=== PATIENT | male | born 1940 | race Caucasian/White ===

== ENCOUNTER 2018-04-03 20:03 | Emergency (ER) | payer MEDICARE, OTHER, MEDICAID ==
[~2018-04-03] VITALS: Ht 190.5 cm; Wt 145.1 kg
[~2018-04-03 20:03] MED LIST: AC325T PO; AMLO1TAB3; AMLO5TAB2 PO; ASP325T; ASP81TEC PO; ATR20T PO; ATRV10T PO; BENA5TAB PO; BETH50TA9 PO; BNZ20T; BNZ20T PO; BROM3DRO OU; CARB1TAB; CHOL200025 PO; CLIN300C3 PO; CLINDAMYCIN PO; ENAL20TA PO; GLIM4TAB; HCT25T PO; HYDR-3454 PO; HYDR12.570; INSASP10V SQ; INSU100C4 SQ; METF-380; METF-380 PO; MTF500T PO; MTP50T PO; MULT-608 PO; PIOG15TA24 PO; PREG75CA; TERA5CAP10 PO; TMSL.4C PO; TRM50T PO; TRZS2T PO; ZLP10T PO; ZOLP10TA5 PO; [UNRECOGNIZED DRUG - OTHER] PO
[2018-04-03] MEDS ORDERED: TETANUS,DIPTH,PERTUSS P/F (BOOSTRIX) 0.5 ML VIAL IM ONE (20:15)
[2018-04-03] MEDS ORDERED: LIDOCAINE 1% INJ 20 ML 20 ML VIAL INJ ONE (20:15)
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
--- NOTE | 2018-04-03 21:06 | Diagnostic Imaging Report ---
INDICATION: Laceration to the plantar surface of the second toe of the right foot. EXAMINATION: Three views of the right toes were obtained. FINDINGS: No fracture, dislocation or other acute bony abnormality. There are mild degenerative changes of the interphalangeal joints. No soft tissue mass or foreign body is seen. IMPRESSION: No acute abnormality is seen. Dictated by: Dictated on workstation # [id number]
[2018-04-03] MEDS ORDERED: CEPH-507 PO (21:13)
[2018-04-03 21:20] VITALS: BP 149/73
== END 2018-04-03 21:20 | disposition home or self-care (01) ==
LOC: EDUNIT# 20:03 → ER 20:05
DX: S91.114A Laceration without foreign body of right lesser toe(s) without damage to nail, initial encounter (principal); E11.42 Type 2 diabetes mellitus with diabetic polyneuropathy; Z79.82 Long term (current) use of aspirin; Z79.4 Long term (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; Z82.49 Family history of ischemic heart disease and other diseases of the circulatory system; Z80.42 Family history of malignant neoplasm of prostate; Z23 Encounter for immunization; X58.XXXA Exposure to other specified factors, initial encounter
CPT/HCPCS: 73660; 90471; 90715

== ENCOUNTER → 2018-04-15 | Outpatient (CLI) | payer MEDICARE, OTHER, MEDICAID ==
[~2018-04-15] MED LIST changes: +CEPH-507 PO
== END ==
LOC: WOUNDCARE 08:03
PROVIDERS: ATTEND Nurse Practitioner
DX: E11.621 Type 2 diabetes mellitus with foot ulcer (principal); L97.512 Non-pressure chronic ulcer of other part of right foot with fat layer exposed
CPT/HCPCS: 11042

== ENCOUNTER → 2018-04-20 | Outpatient (CLI) | payer MEDICARE, OTHER, MEDICAID ==
--- NOTE | 2018-04-20 17:33 | Diagnostic Imaging Report ---
PROCEDURE: US Bilateral lower extremity arterial. TECHNIQUE: Multiple real-time grayscale images are obtained through both lower extremity arterial systems with color Doppler imaging and color Doppler spectral analysis. INDICATION: Lower extremity cyanosis. FINDINGS: There are biphasic arterial waveforms seen throughout the lower extremity arteries bilaterally. There is no evidence of focal velocity elevation to indicate hemodynamically significant stenosis within the thighs or calf regions. There is however focal increased flow velocity at the level of the left dorsalis pedis artery which may indicate stenosis at the ankle. There is no evidence of occlusion. IMPRESSION: Biphasic arterial waveforms throughout the lower extremities with possible focal stenosis at the left ankle, resulting in elevated velocities in the left dorsalis pedis artery. There is no evidence of occlusion or filling defect. Dictated by: Dictated on workstation # [id number]
== END ==
LOC: RAD 15:04
PROVIDERS: ATTEND Nurse Practitioner Community Health
DX: R23.0 Cyanosis (principal)
CPT/HCPCS: 93925

== ENCOUNTER → 2018-04-20 | Outpatient (CLI) | payer MEDICARE, OTHER, MEDICAID | LOC: WOUNDCARE 12:27 | PROVIDERS: ATTEND Surgery | DX: E11.621 Type 2 diabetes mellitus with foot ulcer (principal); L97.522 Non-pressure chronic ulcer of other part of left foot with fat layer exposed; E11.42 Type 2 diabetes mellitus with diabetic polyneuropathy; L97.512 Non-pressure chronic ulcer of other part of right foot with fat layer exposed | CPT/HCPCS: 11042; 87070; 87075; 87077; 87186; 87205 ==

== ENCOUNTER → 2018-04-20 | Outpatient (CLI) | payer MEDICARE, OTHER, MEDICAID ==
[2018-04-20 14:30] LABS: BASOPHILS % (AUTO) 1 % (0-10); EOSINOPHILS # (AUTO) 0.3 10^3/uL (0.0-0.3); EOSINOPHILS % (AUTO) 5 % (0-10); HEMATOCRIT 43 % (40-54); HEMOGLOBIN 14.1 G/DL (13.3-17.7); LYMPHOCYTES % (AUTO) 16 % (12-44); MEAN CORPUSCULAR HEMOGLOBIN 29 PG (25-34); MEAN CORPUSCULAR HGB CONC 33 G/DL (32-36); MEAN CORPUSCULAR VOLUME 90 FL (80-99); MEAN PLATELET VOLUME 10.5 FL (7.4-10.4); MONOCYTES # (AUTO) 0.8 X 10^3 (0.0-1.0); MONOCYTES % (AUTO) 13 % (0-12); NEUTROPHILS # (AUTO) 3.9 X 10^3 (1.8-7.8); NEUTROPHILS % (AUTO) 65 % (42-75); PLATELET COUNT 276 10^3/uL (130-400); RED BLOOD COUNT 4.81 10^6/uL (4.35-5.85); RED CELL DISTRIBUTION WIDTH 13.6 % (10.0-14.5)
--- NOTE | 2018-04-20 15:55 | Diagnostic Imaging Report ---
INDICATION: Chronic ulcer of the left foot. TIME OF EXAM: 2:29 PM FINDINGS: Three views of the left foot were obtained. There is soft tissue swelling along the dorsum of the foot. Patient does have pes planus. No definite bony destructive or osseous erosive changes are seen. No definite soft tissue gas is identified. IMPRESSION: Soft tissue swelling. No definite bony destructive changes are identified. Dictated by: Dictated on workstation # [id number]
== END ==
LOC: LAB 13:51
PROVIDERS: ATTEND Surgery
DX: E11.621 Type 2 diabetes mellitus with foot ulcer (principal); L97.522 Non-pressure chronic ulcer of other part of left foot with fat layer exposed
CPT/HCPCS: 36415; 73630; 83036; 85025

== ENCOUNTER → 2018-04-29 | Outpatient (CLI) | payer MEDICARE, OTHER, MEDICAID | LOC: WOUNDCARE 08:10 | PROVIDERS: ATTEND Surgery | DX: E11.621 Type 2 diabetes mellitus with foot ulcer (principal); L97.512 Non-pressure chronic ulcer of other part of right foot with fat layer exposed; E11.42 Type 2 diabetes mellitus with diabetic polyneuropathy | CPT/HCPCS: 97597 ==

== ENCOUNTER 2019-01-03 11:11 | Inpatient (IN) | payer MEDICARE, OTHER ==
[~2019-01-03] VITALS: Ht 188 cm; Wt 147.0 kg
[2019-01-03] VITALS (14 sets, daily range): BP systolic 128–146; BP diastolic 61–80
--- NOTE | 2019-01-03 11:37 | ED Integumentary General ---
General Stated Complaint: WOUNDS Source: patient, [facility] records, caregiver Exam Limitations: no limitations History of Present Illness Date Seen by Provider: Jan 03, 2019 Time Seen by Provider: 11:20 Initial Comments The patient presents [facility] the [facility] with chief complaint that he has a wound on his right pannus and right butt cheek that is concerning his nursing staff at the [facility]. He's had no fever chills nausea or significant pain. He does not take any pain medicines. He does have a history of limited mobility secondary to diabetes and obesity. He uses a electric wheelchair. The wound is not draining anything and has not opened up. He was seen Wednesday, 4 days ago by primary care and he has scheduled appointment with Dr. Tinoco, wound care on Wednesday, 3 days from now. Nursing staff noticed yesterday was getting worse so they obtained a culture swab of the skin overlying erythema. Primary care started him on clindamycin and ciprofloxacin yesterday. The staff accompanies him is not sure if he is actually started the antibiotics yet. DON called Primary care yesterday and asked to send him to the ER but they declined but today they brought him to the ER. Patient has a history of yeast infection under the skin of his pannus been treated by antifungal's. His blood sugar yesterday was 89 in the morning fasting. Allergies and Home Medications Allergies Coded Allergies: No Known Drug Allergies (Unverified , 01/03/19) Home Medications Acetaminophen 325 Mg Tablet, 650 MG PO Q4H PRN for PAIN-MILD, (Reported) TAKES 2 (325MG) TABLETS Acetaminophen 325 Mg Tablet, 650 MG PO DAILY, (Reported) Amlodipine Besylate 5 Mg Tablet, 5 MG PO DAILY, (Reported) HOLD IF SBP<90, PULSE <60 Aspirin 81 Mg Tablet.dr, 81 MG PO DAILY, (Reported) Atorvastatin Calcium 10 Mg Tablet, 10 MG PO 1500, (Reported) Benzocaine/Menthol 1 Each Lozenge, 1 ANNIE MM UD PRN for COUGH, (Reported) Ciprofloxacin HCl 500 Mg Tablet, 500 MG PO BID, (Reported) 10 DAY SUPPLY START DATE 01-02-19 END DATE 01-12-19 Clindamycin HCl 300 Mg Capsule, 300 MG PO QID, (Reported) START DATE 01-02-19 END DATE 01-12-19 D-Methorphan/Acetamin/Doxylamn 236 Ml Liquid, 30 ML PO DAILY PRN for COUGH, (Reported) Dextran 70/Hypromellose 15 Ml Drops, 1 DROP OU BID, (Reported) Docusate Sodium 100 Mg Capsule, 100 MG PO BID, (Reported) Enalapril Maleate 10 Mg Tablet, 10 MG PO BID, (Reported) HOLD IF SBP <90 PULSE <60 Finasteride 5 Mg Tablet, 5 MG PO DAILY, (Reported) Furosemide 20 Mg Tablet, 20 MG PO DAILY, (Reported) Gabapentin 300 Mg Capsule, 300 MG PO BID, (Reported) Insulin Detemir 100 Unit/1 Ml Insuln.pen, 33 UNITS SC BID, (Reported) Insulin Lispro 100 Unit/1 Ml Vial, 22 UNITS SC TID, (Reported) Lactobacillus Acidophilus 1 Each Capsule, 1 CAP PO BID, (Reported) Loperamide HCl 2 Mg Capsule, PO UD PRN for LOOSE STOOLS, (Reported) TAKE 2 CAPSULES AFTER FIRST LOOSE STOOL THEN TAKE 1 CAPSULE AFTER EACH SUBSEUENT LOOSE STOOL. MAX 4 CAPS IN 24 HOURS Magnesium Hydroxide 400 Mg/5 Ml Oral.susp, 30 ML PO DAILY PRN for CONSTIPATION- 7TH LINE, (Reported) Menthol 118 Ml Gel..ml., TP Q6H PRN for SHOULDER PAIN, (Reported) Metformin HCl 1,000 Mg Tablet, 1,000 MG PO BID, (Reported) Metoprolol Tartrate 50 Mg Tablet, 50 MG PO BID, (Reported) Mirabegron 50 Mg Tab.er.24h, 50 MG PO DAILY, (Reported) Phenyleph/Pramoxin/Glycr/W.pet 51 Gm Cream..g., RC Q6H PRN for HEMORRHOIDS, (Reported) Polyethylene Glycol 3350 17 Gm Powd.pack, 17 GM PO Q12H PRN for CONSTIPATION-2ND LINE, (Reported) Propylene Glycol/Peg 400 15 Ml Drops, 1 DROP OU Q4H PRN for DRY EYES, (Reported) Tamsulosin HCl 0.4 Mg Cap, 0.4 MG PO 1730, (Reported) Zinc Oxide 28 Gm Oint, TP Q8H PRN for RASH/REDNESS IN ABDOMINAL FOLD, (Reported) Patient Home Medication List Home Medication List Reviewed: Yes Review of Systems Review of Systems Constitutional: No chills, No fever EENTM: No ear pain, No eye pain Respiratory: No cough, No short of breath Cardiovascular: No chest pain, No edema Gastrointestinal: No abdominal pain, No constipation, No nausea Genitourinary: No discharge, No dysuria Musculoskeletal: No back pain, No joint pain Past Cpltbav-Dnekbl-Cubbrb Hx Patient Social History Alcohol Use: Denies Use Recreational Drug Use: No Smoking Status: Never a Smoker Recent Hopitalizations: Yes Immunizations Up To Date Tetanus Booster (TDap): More than 5yrs Date of Pneumonia Vaccine: Mar 21, 2011 Date of Influenza Vaccine: Mar 31, 2018 Past Medical History Surgeries: Yes Respiratory: Yes Cardiac: Yes Neurological: No Reproductive Disorders: No Genitourinary: No Gastrointestinal: No Musculoskeletal: Yes Arthritis Endocrine: Yes Diabetes, Non-Insulin dep HEENT: Yes Cataract Loss of Vision: Bilateral Hearing Impairment: Hard of Hearing, Bilateral Hearing Aide Cancer: No Psychosocial: No Integumentary: Yes (COCCYX WITH LARGE SCAR FROM DECUB) Blood Disorders: No Family Medical History Cardiovascular disease 19 MOTHER (CHF) Diabetes mellitus 19 MOTHER Prostate cancer 19 FATHER Heart Disease, Cancer, Diabetes, Hypertension Physical Exam Vital Signs Vital Signs - First Documented Capillary Refill : General Appearance: WD/WN, no apparent distress HEENT: PERRL/EOMI, normal ENT inspection Neck: full range of motion, supple, normal inspection Cardiovascular: normal peripheral pulses, regular rate, rhythm Respiratory: normal breath sounds, no respiratory distress, no accessory muscle use Gastrointestinal: non tender, soft Extremities: normal capillary refill, other (chronic foot drop bilaterally) Neurologic/Psychiatric: no motor/sensory deficits, alert, normal mood/affect, oriented x 3 Skin: other (erythematous, cellulitic appearance to the right lower quadrant pannus. Central 5-6 cm diameter area of dark purple, nonvital tissue and erythema. Macerated, moist but no pointing, induration or area of fluctuance. Malodorous. Joan under the pannus. There is a 2.5 cm diameter erythematous patch with a central papule but no significant induration or fluctuance under it on the right buttock) Progress/Results/Core Measures Results/Orders Lab Results Laboratory Tests Test 01/03/19 11:31 Range/Units White Blood Count 10.3 4.3-11.0 10^3/uL Red Blood Count 4.71 4.35-5.85 10^6/uL Hemoglobin 13.7 13.3-17.7 G/DL Hematocrit 42 40-54 % Mean Corpuscular Volume 90 80-99 FL Mean Corpuscular Hemoglobin 29 25-34 PG Mean Corpuscular Hemoglobin Concent 32 32-36 G/DL Red Cell Distribution Width 13.8 10.0-14.5 % Platelet Count 358 130-400 10^3/uL Mean Platelet Volume 9.9 7.4-10.4 FL Neutrophils (%) (Auto) 74 42-75 % Lymphocytes (%) (Auto) 7 L 12-44 % Monocytes (%) (Auto) 16 H 0-12 % Eosinophils (%) (Auto) 2 0-10 % Basophils (%) (Auto) 0 0-10 % Neutrophils # (Auto) 7.6 1.8-7.8 X 10^3 Lymphocytes # (Auto) 0.7 L 1.0-4.0 X 10^3 Monocytes # (Auto) 1.7 H 0.0-1.0 X 10^3 Eosinophils # (Auto) 0.3 0.0-0.3 10^3/uL Basophils # (Auto) 0.0 0.0-0.1 10^3/uL Neutrophils % (Manual) 73 % Lymphocytes % (Manual) 6 % Monocytes % (Manual) 19 % Eosinophils % (Manual) 0 % Basophils % (Manual) 0 % Band Neutrophils 2 % Blood Morphology Comment NORMAL Prothrombin Time 13.5 12.2-14.7 SEC INR Comment 1.0 0.8-1.4 Activated Partial Thromboplast Time 31 24-35 SEC Sodium Level 137 135-145 MMOL/L Potassium Level 4.0 3.6-5.0 MMOL/L Chloride Level 100 98-107 MMOL/L Carbon Dioxide Level 26 21-32 MMOL/L Anion Gap 11 5-14 MMOL/L Blood Urea Nitrogen 22 H 7-18 MG/DL Creatinine 0.89 0.60-1.30 MG/DL Estimat Glomerular Filtration Rate > 60 BUN/Creatinine Ratio 25 Glucose Level 134 H 70-105 MG/DL Lactic Acid Level 3.04 *H 0.50-2.00 MMOL/L Calcium Level 10.0 8.5-10.1 MG/DL Corrected Calcium 10.2 H 8.5-10.1 MG/DL Total Bilirubin 0.7 0.1-1.0 MG/DL Aspartate Amino Transf (AST/SGOT) 23 5-34 U/L Alanine Aminotransferase (ALT/SGPT) 29 0-55 U/L Alkaline Phosphatase 84 40-136 U/L Total Protein 6.7 6.4-8.2 GM/DL Albumin 3.8 3.2-4.5 GM/DL My Orders Orders - OSIRIS DANIELSON Cbc With Automated Diff (01/03/19 11:27) Comprehensive Metabolic Panel (01/03/19 11:27) Blood Culture (01/03/19 11:27) Protime With Inr (01/03/19 11:27) Partial Thromboplastin Time (01/03/19 11:27) Ed Iv/Invasive Line Start (01/03/19 11:27) Vital Signs Adult Sepsis Patie Q15M (01/03/19 11:27) O2 (01/03/19 11:27) Remove Rings In Anticipation O (01/03/19 11:) Lactic Acid Analyzer (01/03/19 11:27) Manual Differential (01/03/19 11:31) Piperacillin/Tazobactam (Bulk) (Zosyn In (01/03/19 12:00) Vancomycin Injection (Vancomycin Injecti (01/03/19 12:00) Ed Iv/Invasive Line Start (01/03/19 12:03) Ns Iv 1000 Ml (Sodium Chloride 0.9%) (01/03/19 12:03) Vancomycin Injection (Vancomycin Injecti (01/03/19 12:03) Piperacillin Sodium/Tazobactam (Zosyn Vi (01/03/19 12:03) Ns (Ivpb) (Sodium Chloride 0.9%) (01/03/19 12:04) Ns (Ivpb) (Sodium Chloride 0.9% Ivpb Bag (01/03/19 12:04) Vital Signs/I&O 01/03/19 01/03/19 01/03/19 11:35 11:35 11:35 Temp 98.2 98.2 Pulse 80 80 Resp 18 18 B/P (MAP) 141/75 (97) 141/75 (97) Pulse Ox 98 98 98 O2 Delivery Room Air Room Air Room Air Progress Progress Note : Time: 11:37 Progress Note Cellulitic appearing area with mild superficial skin breakdown from maceration but no evidence of abscess to be drained. Needs debrided to be further characterized by wound care. Patient's vital signs are aseptic. We will check labs. The MRSA seen on the culture of his skin maru is not clinically significant. The patient was started yesterday on clindamycin and ciprofloxacin which would probably be adequate however it has not been long enough for these medications to have a chance to make a difference. We'll check his blood sugar today and encouraged him to keep it below 200. Departure Communication (Admissions) Time/Spoke to Admitting Phy: 12:18 Alaina: Discussed case lab and antibiotics fluids and consulted general surgery. Time/Spoke to Consulting Phy: 12:[address] Childs and he agrees to consult on the patient. Impression Primary Impression: Cellulitis Qualified Codes: L03.311 - Cellulitis of abdominal wall Additional Impression: Sepsis Qualified Codes: A41.9 - Sepsis, unspecified organism Disposition: ADMITTED INPATIENT Condition: Stable Admissions Decision to Admit Reason: Admit from ER (General) Decision to Admit/Date: Jan 03, 2019 Time/Decision to Admit Time: 12:20 Departure-Patient Inst. Referrals: [facility] (PCP) Primary Care Physician CONTRERAS QUINN (Family) Primary Care Physician OSIRIS DANIELSON Jan 03, 2019 11:36
[2019-01-03 11:39] LABS: BASOPHILS % (AUTO) 0 % (0-10); EOSINOPHILS # (AUTO) 0.3 10^3/uL (0.0-0.3); EOSINOPHILS % (AUTO) 2 % (0-10); HEMATOCRIT 42 % (40-54); HEMOGLOBIN 13.7 G/DL (13.3-17.7); LYMPHOCYTES # (AUTO) 0.7 X 10^3 (1.0-4.0); LYMPHOCYTES % (AUTO) 7 % (12-44); MEAN CORPUSCULAR HEMOGLOBIN 29 PG (25-34); MEAN CORPUSCULAR HGB CONC 32 G/DL (32-36); MEAN CORPUSCULAR VOLUME 90 FL (80-99); MEAN PLATELET VOLUME 9.9 FL (7.4-10.4); MONOCYTES # (AUTO) 1.7 X 10^3 (0.0-1.0); MONOCYTES % (AUTO) 16 % (0-12); NEUTROPHILS # (AUTO) 7.6 X 10^3 (1.8-7.8); NEUTROPHILS % (AUTO) 74 % (42-75); PLATELET COUNT 358 10^3/uL (130-400); RED CELL DISTRIBUTION WIDTH 13.8 % (10.0-14.5); WHITE BLOOD COUNT 10.3 10^3/uL (4.3-11.0)
[2019-01-03 11:51] LABS: PROTHROMBIN TIME PATIENT 13.5 SEC (12.2-14.7)
[2019-01-03 11:59] LABS: ALANINE AMINOTRANSFERASE 29 U/L (0-55); ALBUMIN 3.8 GM/DL (3.2-4.5); ALKALINE PHOSPHATASE 84 U/L (40-136); BILIRUBIN,TOTAL 0.7 MG/DL (0.1-1.0); BUN/CREATININE RATIO 25; CARBON DIOXIDE 26 MMOL/L (21-32); CHLORIDE 100 MMOL/L (98-107); CREATININE SERUM 0.89 MG/DL (0.60-1.30); GFR ESTIMATED > 60; GLUCOSE 134 MG/DL (70-105); SODIUM 137 MMOL/L (135-145); TOTAL PROTEIN 6.7 GM/DL (6.4-8.2)
[2019-01-03] MEDS ORDERED: VANCOMYCIN INJECTION 1,000 MG in NS (IVPB) 250 ML IV ONE (12:00)
[2019-01-03] MEDS ORDERED: PIPERACILLIN/TAZOBACTAM (BULK) 4.5 GM in NS (IVPB) 100 ML IV ONE (12:00)
[2019-01-03] MEDS ORDERED: PIPERACILLIN/TAZO 4.5 GM VIAL (ZOSYN) IV ONE (12:03)
[2019-01-03] MEDS ORDERED: VANCOMYCIN 1000 MG/VIAL ONE (12:03)
[2019-01-03] MEDS ORDERED: NS (IVPB) 250 ML ONE (12:04)
[2019-01-03] MEDS ORDERED: NS (IVPB) 100 ML ONE (12:04)
[2019-01-03 12:08] LABS: BAND NEUTROPHILS 2 %; BASOPHILS % (MANUAL) 0 %; EOSINOPHILS % (MANUAL) 0 %; LYMPHOCYTES % (MANUAL) 6 %; MONOCYTES % (MANUAL) 19 %; NEUTROPHILS % (MANUAL) 73 %; RBC MORPH NORMAL
[2019-01-03] MEDS: NS IV 1000 ML 1,000 ML IV SCH ×3 (12:25→15:24)
--- OUTSIDE RECORDS SUMMARY | 2019-01-03 12:47 | XMS REPORT ---
Author Author Migration, Doctor Organization [facility] Address Unknown Phone Unavailable Care Team Providers Care Box Turner Name Role Phone Migration, Doctor Unavailable Unavailable PROBLEMS Type Condition ICD9-CM Code [id number] Code Onset Dates Condition Status SNOMED Code Problem Difficulty in walking, not elsewhere classified R26.2 Active 476758991 Problem Muscle weakness (generalized) M62.81 Active 81534899 Problem Age-related osteoporosis without current pathological fracture M81.0 Active 04248863 Problem Other hereditary and idiopathic neuropathies G60.8 Active 794951171 Problem Other chronic pain G89.29 Active 41794781 Problem Essential (primary) hypertension I10 Active 09257547 Problem Morbid (severe) obesity due to excess calories E66.01 Active 006380736 Problem Benign prostatic hyperplasia with lower urinary tract symptoms, symptom details unspecified N40.1 Active 876579140 Problem Right foot drop M21.371 Active [id number] Problem Type 2 diabetes mellitus without complication, without long-term current use of insulin E11.9 Active 209967425 Problem Type 2 diabetes mellitus with diabetic neuropathy, unspecified E11.40 Active 58703110 Problem 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 [address] [facility] [id number], [place] [address] October, 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 [place] [id number] [place] [address] Aug, [place] [address] [place] [address] Aug, Urinary tract infection without hematuria, site unspecified N39.0 [facility] [address] [place] [id number] Aug, Left leg swelling M79.89 [place] [address] [place] [id number] [place] [address] Jul, [place] [address] [place] [id number] [place] [address] Jul, 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 and Type 2 diabetes mellitus with hyperglycemia E11.65 [place] [address] [place] [id number] [place] [address] Jun, [facility] [address] [place] [id number] Jun, Left elbow pain M25.522 [facility] [address] [place] [id number] Jun, Abrasion foot/toe S90.819A and Type 2 diabetes mellitus with diabetic neuropathy, unspecified E11.40 [facility] [address] [place] [id number] Apr, Cellulitis of toe of left foot L03.032 [place] [address] [place] [address] Mar, Extremity cyanosis R23.0 [facility] [address] [place] [id number] Feb, Type 2 diabetes mellitus with diabetic neuropathy, unspecified E11.40 ; [facility] current use of insulin Z79.4 and Abrasion foot/toe S90.819A [place] [address] [place] [address] Feb, [facility] [address] [id number] [place] [address] Jun, [facility] [address] [id number] [place] [address] Sep, [facility] [address] [id number] [place] [address] Feb, [facility] [address] [id number] [place] [address] Dec, [facility] [address] [id number] [place] [address] Nov, [facility] [address] [facility] [id number] [place] [address] Nov, [facility] [address] [place] [id number] October, Diabetes 250.00 [facility] [address] [id number] [address] October, [facility] [address] [place] [id number] [place] [address] Sep, [facility] [address] [place] [id number] [address] Sep, [facility] [address] [place] [id number] [place] [address] Jul, [facility] [address] [id number], [place] [address] Jul, [facility] [address] [id number], [place] [address] Jul, [facility] [address] [place] [id number] Jul, [facility] [address] [facility] [id number], [place] [address] Jul, [facility] [address] [place] [id number] [address] Jul, [facility] [address] [facility] [id number] Jul, [facility] [address] [id number] [place] [address] Jun, [facility] [address] [id number] [place] [address] Jun, [facility] [address] [facility] [id number] Jun, [facility] [address] [id number] [place] [address] Jun, [facility] [address] [id number] [place] [address] Jun, [facility] [address] [id number] [place] [address] Jun, [facility] [address] [id number], [place] [address] Jun, [facility] [address] [id number] [place] [address] Jun, [facility] [address] [id number], [place] [address] Jun, [facility] [address] [id number] [place] [address] Jun, [facility] [address] [id number], [place] [address] May, [facility] [address] [id number] [place] [address] May, [facility] [address] [id number] [place] [address] May, [facility] [address] [id number], [place] [address] May, [facility] [address] [id number], [place] [address] May, [facility] [place] [facility] [address] [id number] [place] [address] Apr, [facility] [place] [facility] [address] [id number] [place] [address] Apr, [facility] [place] [facility] [address] [id number] [place] [address] Apr, [facility] [place] [facility] [address] [id number] [place] [address] Mar, [facility] [place] [facility] [address] [id number] [place] [address] Mar, [facility] [place] [facility] [address] [id number] [place] [address] Mar, [facility] [place] [facility] [address] [id number] [place] [address] Mar, [facility] [place] [facility] [address] [id number] [place] [address] Mar, [facility] [place] [facility] [address] [id number] [place] [address] Mar, [facility] [place] [facility] [address] [id number] [place] [address] Mar, [facility] [place] [facility] [address] [id number], [place] [address] Mar, [facility] [place] [facility] [address] [id number], [place] [address] Mar, [facility] [place] [facility] [address] [id number] [place] [address] Mar, [facility] [place] [facility] [address] [id number], [place] [address] Mar, [facility] [place] [facility] [address] [id number] [place] [address] Mar, [facility] [place] [facility] [address] [id number] [place] [address] Mar, [facility] [place] [facility] [address] [id number] [place] [address] Mar, [facility] [place] [facility] [address] [id number] [place] [address] Feb, [facility] [place] [facility] [address] [id number] [place] [address] Jan, [facility] [place] [facility] [address] [id number] [place] [address] Jan, [facility] [place] [facility] [address] [id number] [place] [address] Jan, [facility] [place] [facility] [address] [id number] [place] [address] Jan, [facility] [place] [facility] [address] [id number] [place] [address] Jan, [facility] [place] [facility] [address] [id number] [place] [address] Jan, [facility] [place] [facility] [address] [id number] [place] [address] Dec, [facility] [place] [facility] [address] [id number] [place] [address] Dec, [facility] [place] [facility] [address] [id number] [place] [address] Dec, [facility] [place] [facility] [address] [id number] [place] [address] Dec, [facility] [place] [facility] [address] [id number] [place] [address] Dec, [facility] [place] [facility] [address] [id number] [place] [address] Dec, [facility] [place] [facility] [address] [id number] [place] [address] Dec, [facility] [place] [facility] [address] [id number] [place] [address] Dec, [facility] [place] [facility] [address] [id number] [place] [address] Dec, [facility] [place] [facility] [address] [id number] [place] [address] Dec, [facility] [place] [facility] [address] [id number] [place] [address] Nov, [facility] [place] [facility] [address] [id number] [place] [address] Nov, [facility] [place] [facility] [address] [id number] [place] [address] October, [facility] [place] [facility] [address] [id number] [place] [address] October, [facility] [place] [facility] [address] [id number] [place] [address] October, [facility] [place] [facility] [address] [id number] [place] [address] October, [facility] [place] [facility] [address] [id number] [place] [address] October, [facility] [place] [facility] [address] [id number] [place] [address] October, [facility] [place] [facility] [address] [id number] [place] [address] October, [facility] [place] [facility] [address] [id number] [place] [address] October, [facility] [place] [facility] [address] [id number] [place] [address] October, [facility] [place] [facility] [address] [id number] [place] [address] October, [facility] [place] [facility] [address] [id number] [place] [address] October, [facility] [place] [facility] [address] [id number] [place] [address] October, [facility] [place] [facility] [address] [id number] [place] [address] October, [facility] [place] [facility] [address] [id number] [place] [address] October, [facility] [place] [facility] [address] [id number] [place] [address] October, [facility] [place] [facility] [address] [id number] [place] [address] October, [facility] [place] [facility] [address] [id number] [place] [address] Sep, [facility] [place] [facility] [address] [id number] [place] [address] Sep, [facility] [place] [facility] [address] [id number] [place] [address] Aug, [facility] [place] [facility] [address] [id number] [place] [address] Aug, [facility] [place] [facility] [address] [id number] [place] [address] Aug, [facility] [place] [facility] [address] [id number] [place] [address] Aug, [facility] [place] [facility] [address] [id number] [place] [address] Aug, [facility] [place] [facility] [address] [id number] [place] [address] Aug, [facility] [place] [facility] [address] [id number] [place] [address] Jul, [facility] [place] [facility] [address] [id number] [place] [address] Jul, [facility] [place] [facility] [address] [id number] [place] [address] Jul, [facility] [place] [facility] [address] [id number] [place] [address] Jul, [facility] [place] [facility] [address] [id number] [place] [address] Jul, [facility] [place] [facility] [address] [id number] [place] [address] Jul, [facility] [place] [facility] [address] [id number] [place] [address] Jul, [facility] [place] [facility] [address] [id number] [place] [address] Jul, [facility] [place] [facility] [address] [id number] [place] [address] Jul, [facility] [place] [facility] [address] [id number] [place] [address] Jul, [facility] [place] [facility] [address] [id number] [place] [address] Jul, [facility] [place] [facility] [address] [id number] [place] [address] Jul, [facility] [place] [facility] [address] [id number] [place] [address] Jul, [facility] [place] [facility] [address] [id number] [place] [address] Jun, [facility] [place] [facility] [address] [id number] [place] [address] Jun, [facility] [place] [facility] [address] [id number] [place] [address] Jun, [facility] [place] [facility] [address] [id number] [place] [address] Jun, [facility] [place] [facility] [address] [id number] [place] [address] Jun, [facility] [address] [id number] [place] [address] Jun, [facility] [address] [id number] [place] [address] Jun, [facility] [address] [id number] [place] [address] Jun, [facility] [address] [id number] [place] [address] Jun, [facility] [address] [id number] [place] [address] Jun, [facility] [address] [id number] [place] [address] Jun, [facility] [address] [id number] [place] [address] Jun, [facility] [address] [id number] [place] [address] Jun, [facility] [address] [id number] [place] [address] May, [facility] [address] [id number] [place] [address] May, [facility] [address] [id number] [place] [address] May, [facility] [address] [id number] [place] [address] May, [facility] [place] [facility] [address] [id number] [place] [address] Apr, [facility] [place] [facility] [address] [id number] [place] [address] Apr, [facility] [address] [id number] [place] [address] Apr, [facility] [place] [facility] [address] [id number] [place] [address] 15 Apr, 2013 [facility] [place] [facility] [address] [id number] [place] [address] 14 Apr, 2013 [facility] [place] [facility] [address] [id number] [place] [address] 14 Apr, 2013 [facility] [place] [facility] [address] [id number] [place] [address] 08 Apr, 2013 [facility] [place] [facility] [address] [id number] [place] [address] 08 Apr, 2013 [facility] [place] [facility] [address] [id number] [place] [address] Apr, [facility] [place] [facility] [address] [id number] [place] [address] Apr, [facility] [place] [facility] [address] [id number], [place] [address] Apr, [facility] [place] [facility] [address] [id number] [place] [address] Apr, [facility] [place] [facility] [address] [id number], [place] [address] Apr, [facility] [place] [facility] [address] [id number], [place] [address] Apr, [facility] [place] [facility] [address] [id number], [place] [address] Apr, [facility] [place] [facility] [address] [id number], [place] [address] Apr, [facility] [place] [facility] [address] [id number], [place] [address] Mar, [facility] [place] [facility] [address] [id number], [place] [address] Mar, [facility] [place] [facility] [address] [id number], [place] [address] 16 Mar, 2013 [facility] [place] [facility] [address] [id number] [place] [address] 16 Mar, 2013 [facility] [place] [facility] [address] [id number] [place] [address] 14 Mar, 2013 [facility] [place] [facility] [address] [id number] [place] [address] 14 Mar, 2013 [facility] [place] [facility] [address] [id number] [place] [address] 10 Mar, 2013 [facility] [place] [facility] [address] [id number] [place] [address] 08 Mar, 2013 [facility] [place] [facility] [address] [id number] [place] [address] 07 Mar, 2013 [facility] [place] [facility] [address] [id number] [place] [address] 26 Feb, 2013 [facility] [place] [facility] [address] [id number] [place] [address] 18 Feb, 2013 [facility] [place] [facility] [address] [id number] [place] [address] 10 Feb, 2013 [facility] [place] [facility] [address] [id number] [place] [address] 09 Feb, 2013 [facility] [place] [facility] [address] [id number] [place] [address] 30 Jan, 2013 [facility] [place] [facility] [address] [id number] [place] [address] Jan, [facility] [place] [facility] [address] [id number] [place] [address] Jan, [facility] [place] [facility] [address] [id number] [place] [address] Jan, [facility] [place] [facility] [address] [id number] [place] [address] Jan, [facility] [place] [facility] [address] [id number] [place] [address] Dec, [facility] [place] [facility] [address] [id number] [place] [address] Dec, [facility] [place] [facility] [address] [id number] [place] [address] Jul, [facility] [place] [facility] [address] [id number] [place] [address] 05 Jul, 2012 [facility] [place] [facility] [address] [id number] [place] [address] Jul, [facility] [place] [facility] [address] [id number] [place] [address] Jun, [facility] [place] [facility] [address] [id number] [place] [address] Jun, [facility] [place] [facility] [address] [id number] [place] [address] Apr, [facility] [place] [facility] [address] [id number] [place] [address] Apr, [facility] [place] [facility] [address] [id number] [place] [address] Apr, [facility] [place] [facility] [address] [id number] [place] [address] Apr, [facility] [place] [facility] [address] [id number] [place] [address] 14 Apr, 2012 [facility] [place] [facility] [address] [id number] [place] [address] 14 Apr, 2012 [facility] [place] [facility] [address] [id number] [place] [address] 06 Apr, 2012 [facility] [place] [facility] [address] [id number] [place] [address] 06 Apr, 2012 [facility] [place] [facility] [address] [id number] [place] [address] Apr, [facility] [id number] [address] Mar, [facility] [address] [facility] [id number] [address] Mar, [facility] [id number] [address] Mar, [facility] [id number] [address] Mar, [facility] [id number] [address] Mar, [facility] [id number] [place] [address] Mar, [facility] [id number] [address] Feb, [facility] [id number] [address] Feb, [facility] [id number] [address] Feb, [facility] [id number] [address] Feb, [facility] [id number] [address] Feb, [facility] [id number], [place] [address] Feb, [facility] [id number] [place] [address] Feb, IMMUNIZATIONS No Known Immunizations SOCIAL HISTORY Never Assessed REASON FOR VISIT EMR-[facility] PLAN OF CARE VITAL SIGNS MEDICATIONS Unknown Medications RESULTS No Results PROCEDURES No Known procedures INSTRUCTIONS MEDICATIONS ADMINISTERED No Known Medications MEDICAL (GENERAL) HISTORY Type Description Date Hospitalization History [facility]- Left leg redness 04/26/2017
--- OUTSIDE RECORDS SUMMARY | 2019-01-03 12:47 | XMS REPORT ---
Author Author CONTRERAS QUINN [facility] Address [address] [place] [address] Care Team Providers Care Lathe Set Up Person Name Role Phone CONTRERAS QUINN Unavailable PROBLEMS Type Condition ICD9-CM Code QNK18-DZ Code Onset Dates Condition Status SNOMED Code Problem Difficulty in walking, not elsewhere classified R26.2 Active 308491127 Problem Muscle weakness (generalized) M62.81 Active 73622382 Problem Age-related osteoporosis without current pathological fracture M81.0 Active 24753474 Problem Other hereditary and idiopathic neuropathies G60.8 Active 864442897 Problem Other chronic pain G89.29 Active 70153524 Problem Essential (primary) hypertension I10 Active 22642177 Problem Morbid (severe) obesity due to excess calories E66.01 Active 463333378 Problem Benign prostatic hyperplasia with lower urinary tract symptoms, symptom details unspecified N40.1 Active 304695416 Problem Right foot drop M21.371 Active 847060829696421 Problem Type 2 diabetes mellitus without complication, without long-term current use of insulin E11.9 Active 219356626 Problem Type 2 diabetes mellitus with diabetic neuropathy, unspecified E11.40 Active 63149686 Problem 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 Active 036206165 Problem Type 2 diabetes mellitus with hyperglycemia E11.65 Active 15378577 Problem Allergic rhinitis, unspecified seasonality, unspecified trigger J30.9 Active 50899542 Problem Hyperlipidemia, unspecified hyperlipidemia type E78.5 Active 92240527 Problem Insomnia, unspecified type G47.00 Active 178919586 Problem Constipation, unspecified constipation type K59.00 Active 02977419 Problem 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 Active 620345432 ALLERGIES No Information ENCOUNTERS Encounter Location Date Diagnosis [facility] [address], [place] [id number] Nov, Wound of right foot S91.301A and Blood blister T14.8XXA [facility] [address] [place] [address] Nov, Tinea pedis of both feet B35.3 [facility] [address], [place] [id number] October, Type 2 diabetes mellitus with diabetic neuropathy, unspecified E11.40 ; 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 ; Cracked skin on feet R23.4 and Morbid obesity E66.01 [place] [id number] [place] [address] October, [place] [id number] [place] [address] October, [facility] [address] [id number] Sep, Type 2 diabetes mellitus with diabetic neuropathy, unspecified E11.40 and FCI current use of insulin Z79.4 [place] [id number] [place] [address] Aug, [place] [id number] [place] [address] Aug, Urinary tract infection without hematuria, site unspecified N39.0 [facility] [address] [place] [id number] Aug, Left leg swelling M79.89 [place] [id number] [place] [address] Jul, [place] [id number] [place] [address] Jul, 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 and Type 2 diabetes mellitus with hyperglycemia E11.65 [place] [id number] [place] [address] Jun, [facility] [address] [id number] Jun, Left elbow pain M25.522 [facility] [address] [id number] Jun, Abrasion foot/toe S90.819A and Type 2 diabetes mellitus with diabetic neuropathy, unspecified E11.40 [facility] [address] [id number] Apr, Cellulitis of toe of left foot L03.032 [facility] [address] [place] [address] Mar, Extremity cyanosis R23.0 [facility] [address] [id number] Feb, Type 2 diabetes mellitus with diabetic neuropathy, unspecified E11.40 ; FCI current use of insulin Z79.4 and Abrasion foot/toe S90.819A [facility] [id number] [place] [address] Feb, [facility] [id number] [place] [address] Jun, [facility] [id number] [place] [address] Sep, [facility] [address] [place] [address] Feb, [facility] [id number] [place] [address] Dec, [facility] [address] [place] [address] Nov, [facility] [address] [place] [address] Nov, [facility] [address] [place] [id number] October, Diabetes 250.00 [facility] [address] [place] [address] October, [facility] [id number] [place] [address] 14 Sep, 2014 [facility] [id number] [place] [address] Sep, [facility] [address] [id number] [place] [address] Jul, [facility] [address] [id number] [place] [address] Jul, [facility] [address] [id number] [place] [address] Jul, [facility] [address] [facility] [id number] Jul, [facility] [address] [id number] [place] [address] Jul, [facility] [address] [id number] [place] [address] Jul, [facility] [address] [facility] [address] Jul, [facility] [address] [id number], [place] [address] Jun, [facility] [address] [id number], [place] [address] Jun, [facility] [address] [facility] [address] Jun, [facility] [address] [id number], [place] [address] Jun, [facility] [address] [id number], [place] [address] Jun, [facility] [address] [id number], [place] [address] Jun, [facility] [address] [id number], [place] [address] Jun, [facility] [address] [id number], [place] [address] Jun, [facility] [address] [id number], [place] [address] Jun, [facility] [place] [facility] [address] [id number] [place] [address] Jun, [facility] [place] [facility] [address] [id number] [place] [address] May, [facility] [place] [facility] [address] [id number] [place] [address] May, [facility] [place] [facility] [address] [id number] [place] [address] May, [facility] [place] [facility] [address] [id number] [place] [address] May, [facility] [place] [facility] [address] [id number] [place] [address] May, [facility] [place] [facility] [address] [id number] [place] [address] Apr, [facility] [place] [facility] [address] [id number] [place] [address] Apr, [facility] [place] [facility] [address] [id number] [place] [address] Apr, [facility] [place] [facility] [address] [id number] [place] [address] Mar, [facility] [place] [facility] [address] [id number] [place] [address] Mar, [facility] [place] [facility] [address] [id number], [place] [address] Mar, [facility] [place] [facility] [address] [id number] [place] [address] Mar, [facility] [place] [facility] [address] [id number] [place] [address] Mar, [facility] [place] [facility] [address] [id number] [place] [address] Mar, [facility] [place] [facility] [address] [id number], [place] [address] Mar, [facility] [place] [facility] [address] [id number] [place] [address] Mar, [facility] [place] [facility] [address] [id number] [place] [address] Mar, [facility] [place] [facility] [address] [id number] [place] [address] Mar, [facility] [place] [facility] [address] [id number] [place] [address] Mar, [facility] [place] [facility] [address] [id number] [place] [address] Mar, [facility] [place] [facility] [address] [id number] [place] [address] Mar, [facility] [place] [facility] [address] [id number] [place] [address] Mar, [facility] [place] [facility] [address] [id number] [place] [address] Feb, [facility] [place] [facility] [address] [id number] [place] [address] Jan, [facility] [place] [facility] [address] [id number] [place] [address] Jan, [facility] [place] [facility] [address] [id number] [place] [address] Jan, [facility] [place] [facility] [address] [id number] [place] [address] Jan, [facility] [place] [facility] [address] [id number] [place] [address] Jan, [facility] [place] [facility] [address] [id number] [place] [address] Jan, [facility] [place] [facility] [address] [id number] [place] [address] Dec, [facility] [place] [facility] [address] [id number] [place] [address] Dec, [facility] [place] [facility] [address] [id number] [place] [address] Dec, [facility] [place] [facility] [address] [id number] [place] [address] Dec, [facility] [place] [facility] [address] [id number] [place] [address] Dec, [facility] [place] [facility] [address] [id number] [place] [address] Dec, [facility] [place] [facility] [address] [id number] [place] [address] Dec, [facility] [place] [facility] [address] [id number] [place] [address] Dec, [facility] [place] [facility] [address] [id number] [place] [address] Dec, [facility] [place] [facility] [address] [id number] [place] [address] Dec, [facility] [place] [facility] [address] [id number] [place] [address] Nov, [facility] [place] [facility] [address] [id number] [place] [address] Nov, [facility] [place] [facility] [address] [id number] [place] [address] October, [facility] [place] [facility] [address] [id number] [place] [address] October, [facility] [place] [facility] [address] [id number] [place] [address] October, [facility] [place] [facility] [address] [id number] [place] [address] October, [facility] [place] [facility] [address] [id number] [place] [address] October, [facility] [address] [id number] [place] [address] October, [facility] [place] [facility] [address] [id number] [place] [address] October, [facility] [place] [facility] [address] [id number] [place] [address] October, [facility] [place] [facility] [address] [id number] [place] [address] October, [facility] [place] [facility] [address] [id number] [place] [address] October, [facility] [place] [facility] [address] [id number] [place] [address] October, [facility] [place] [facility] [address] [id number] [place] [address] October, [facility] [place] [facility] [address] [id number] [place] [address] October, [facility] [place] [facility] [address] [id number] [place] [address] October, [facility] [place] [facility] [address] [id number] [place] [address] October, [facility] [place] [facility] [address] [id number] [place] [address] October, [facility] [place] [facility] [address] [id number] [place] [address] Sep, [facility] [place] [facility] [address] [id number] [place] [address] Sep, [facility] [place] [facility] [address] [id number] [place] [address] Aug, [facility] [place] [facility] [address] [id number] [place] [address] Aug, [facility] [place] [facility] [address] [id number] [place] [address] Aug, [facility] [place] [facility] [address] [id number] [place] [address] Aug, [facility] [place] [facility] [address] [id number] [place] [address] Aug, [facility] [place] [facility] [address] [facility] [id number] [place] [address] Aug, [facility] [place] [facility] [address] [id number] [place] [address] Jul, [facility] [place] [facility] [address] [id number] [place] [address] Jul, [facility] [place] [facility] [address] [facility] [id number] [place] [address] 20 Jul, 2013 [facility] [place] [facility] [address] [facility] [id number] [place] [address] 20 Jul, 2013 [facility] [place] [facility] [address] [facility] [id number] [place] [address] 19 Jul, 2013 [facility] [place] [facility] [address] [facility] [id number] [place] [address] 18 Jul, 2013 [facility] [place] [facility] [address] [facility] [id number] [place] [address] 18 Jul, 2013 [facility] [place] [facility] [address] [facility] [id number] [place] [address] 17 Jul, 2013 [facility] [place] [facility] [address] [id number] [place] [address] 17 Jul, 2013 [facility] [place] [facility] [address] [id number] [place] [address] 08 Jul, 2013 [facility] [place] [facility] [address] [facility] [id number] [place] [address] 08 Jul, 2013 [facility] [place] [facility] [address] [facility] [id number] [place] [address] Jul, [facility] [place] [facility] [address] [id number] [place] [address] Jul, [facility] [place] [facility] [address] [id number] [place] [address] Jun, [facility] [place] [facility] [address] [id number] [place] [address] Jun, [facility] [place] [facility] [address] [id number] [place] [address] Jun, [facility] [place] [facility] [address] [id number] [place] [address] Jun, [facility] [place] [facility] [address] [id number] [place] [address] Jun, [facility] [place] [facility] [address] [id number] [place] [address] Jun, [facility] [place] [facility] [address] [id number] [place] [address] Jun, [facility] [place] [facility] [address] [id number] [place] [address] Jun, [facility] [place] [facility] [address] [id number] [place] [address] Jun, [facility] [place] [facility] [address] [id number], [place] [address] Jun, [facility] [place] [facility] [address] [id number], [place] [address] Jun, [facility] [place] [facility] [address] [id number] [place] [address] Jun, [facility] [place] [facility] [address] [id number], [place] [address] Jun, [facility] [place] [facility] [address] [id number] [place] [address] May, [facility] [place] [facility] [address] [id number] [place] [address] 02 May, 2013 [facility] [address] [id number] [place] [address] May, [facility] [place] [facility] [address] [id number] [place] [address] May, [facility] [place] [facility] [address] [id number] [place] [address] Apr, [facility] [place] [facility] [address] [id number] [place] [address] Apr, [facility] [place] [facility] [address] [id number] [place] [address] Apr, [facility] [place] [facility] [address] [id number] [place] [address] 15 Apr, 2013 [facility] [address] [id number] [place] [address] Apr, [facility] [address] [id number] [place] [address] 14 Apr, 2013 [facility] [place] [facility] [address] [id number] [place] [address] Apr, [facility] [address] [facility] [id number] [place] [address] 08 Apr, 2013 [facility] [place] [facility] [address] [id number] [place] [address] Apr, [facility] [address] [id number] [place] [address] 07 Apr, 2013 [facility] [place] [facility] [address] [id number] [place] [address] 07 Apr, 2013 [facility] [place] [facility] [address] [facility] [id number] [place] [address] 07 Apr, 2013 [facility] [place] [facility] [address] [id number] [place] [address] Apr, [facility] [place] [facility] [address] [id number] [place] [address] 06 Apr, 2012 [facility] [place] [facility] [address] [id number] [place] [address] Apr, [facility] [place] [facility] [address] [id number] [place] [address] Apr, [facility] [place] [facility] [address] [id number] [place] [address] 30 Mar, 2013 [facility] [place] [facility] [address] [id number] [place] [address] 30 Mar, 2013 [facility] [place] [facility] [address] [id number] [place] [address] 16 Mar, 2013 [facility] [place] [facility] [address] [id number] [place] [address] 16 Mar, 2013 [facility] [place] [facility] [address] [id number], [place] [address] 14 Mar, 2013 [facility] [place] [facility] [address] [id number] [place] [address] 14 Mar, 2013 [facility] [place] [facility] [address] [id number], [place] [address] 10 Mar, 2013 [facility] [place] [facility] [address] [id number], [place] [address] 08 Mar, 2013 [facility] [place] [facility] [address] [id number], [place] [address] 07 Mar, 2013 [facility] [place] [facility] [address] [id number], [place] [address] 26 Feb, 2012 [facility] [place] [facility] [address] [id number], [place] [address] 18 Sep, 2012 [facility] [place] [facility] [address] [id number], [place] [address] 10 Feb, 2013 [facility] [place] [facility] [address] [id number], [place] [address] Feb, [facility] [address] [id number] [place] [address] Jan, [facility] [place] [facility] [address] [id number] [place] [address] Jan, [facility] [place] [facility] [address] [id number] [place] [address] Jan, [facility] [place] [facility] [address] [id number] [place] [address] Jan, [facility] [place] [facility] [address] [id number] [place] [address] Jan, [facility] [place] [facility] [address] [id number] [place] [address] Dec, [facility] [place] [facility] [address] [id number] [place] [address] Dec, [facility] [place] [facility] [address] [id number] [place] [address] Jul, [facility] [place] [facility] [address] [id number] [place] [address] Jul, [facility] [place] [address] [id number] [place] [address] Jul, [facility] [address] [id number] [place] [address] Jun, [facility] [place] [facility] [address] [id number] [place] [address] Jun, [facility] [place] [facility] [address] [id number] [place] [address] Apr, [facility] [place] [facility] [address] [id number] [place] [address] Apr, [facility] [address] [id number] [place] [address] Apr, [facility] [place] [facility] [address] [id number] [place] [address] Apr, [facility] [place] [facility] [address] [id number] [place] [address] Apr, [facility] [place] [facility] [address] [id number] [place] [address] Apr, [facility] [place] [facility] [address] [id number] [place] [address] Apr, [facility] [place] [facility] [address] [id number] [place] [address] Apr, [facility] [place] [facility] [address] [id number] [place] [address] Apr, [facility] [place] [facility] [address] [id number] [place] [address] Mar, [facility] [place] [facility] [address] [id number] [place] [address] Mar, [facility] [place] [facility] [address] [id number] [place] [address] Mar, [facility] [place] [facility] [address] [id number] [place] [address] Mar, [facility] [place] [facility] [address] [facility] [id number] [place] [address] Mar, [facility] [place] [facility] [address] [id number] [place] [address] Mar, [facility] [place] [facility] [address] [id number] [place] [address] Feb, [facility] [place] [facility] [address] [id number] [place] [address] Feb, [facility] [place] [facility] [address] [id number] [place] [address] Feb, [facility] [place] [facility] [address] [id number] [place] [address] Feb, [facility] [address] [facility] [id number] [place] [address] Feb, [facility] [address] [facility] [id number] [place] [address] Feb, [facility] [address] [facility] [id number] [place] [address] Feb, IMMUNIZATIONS No Known Immunizations SOCIAL HISTORY Never Assessed REASON FOR VISIT PLAN OF CARE VITAL SIGNS MEDICATIONS No Known Medications RESULTS No Results PROCEDURES No Known procedures INSTRUCTIONS MEDICATIONS ADMINISTERED No Known Medications MEDICAL (GENERAL) HISTORY Type Description Date Hospitalization History [facility]- Left leg redness 04/26/2017
--- OUTSIDE RECORDS SUMMARY | 2019-01-03 12:48 | XMS REPORT ---
Author Author Migration, Doctor Organization [facility] Address Unknown Phone Unavailable Care Team Providers Care Pot Pusher Name Role Phone Migration, Doctor Unavailable Unavailable PROBLEMS Type Condition ICD9-CM Code YEG12-YK Code Onset Dates Condition Status SNOMED Code Problem Difficulty in walking, not elsewhere classified R26.2 Active 610803679 Problem Muscle weakness (generalized) M62.81 Active 01694282 Problem Age-related osteoporosis without current pathological fracture M81.0 Active 46125430 Problem Other hereditary and idiopathic neuropathies G60.8 Active 741538011 Problem Other chronic pain G89.29 Active 28822917 Problem Essential (primary) hypertension I10 Active 60485502 Problem Morbid (severe) obesity due to excess calories E66.01 Active 563861696 Problem Benign prostatic hyperplasia with lower urinary tract symptoms, symptom details unspecified N40.1 Active 117926679 Problem Right foot drop M21.371 Active [id number] Problem Type 2 diabetes mellitus without complication, without long-term current use of insulin E11.9 Active 903880222 Problem Type 2 diabetes mellitus with diabetic neuropathy, unspecified E11.40 Active 67319976 Problem 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 Active 429910168 Problem Type 2 diabetes mellitus with hyperglycemia E11.65 Active 85943371 Problem Allergic rhinitis, unspecified seasonality, unspecified trigger J30.9 Active 92659779 Problem Hyperlipidemia, unspecified hyperlipidemia type E78.5 Active 92657660 Problem Insomnia, unspecified type G47.00 Active 059550707 Problem Constipation, unspecified constipation type K59.00 Active 58365268 Problem nursing home current use of insulin Z79.4 Active 452509043 ALLERGIES No Information ENCOUNTERS Encounter Location Date Diagnosis [facility] [address], [place] [id number] Sep, Type 2 diabetes mellitus with diabetic neuropathy, unspecified E11.40 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 [facility] [address] [facility] [id number] [place] [address] Aug, [place] [id number] [address] Aug, Urinary tract infection without hematuria, site unspecified N39.0 [facility] [address] [id number] Aug, Left leg swelling M79.89 [place] [address] [place] [id number] [place] [address] Jul, [place] [address] [place] [id number] [place] [address] Jul, nursing home current use of insulin Z79.4 and Type 2 diabetes mellitus with hyperglycemia E11.65 [place] [address] [place] [id number] [place] [address] Jun, [facility] [address] [place] [id number] Jun, Left elbow pain M25.522 [facility] [address] [place] [id number] Jun, Abrasion foot/toe S90.819A and Type 2 diabetes mellitus with diabetic neuropathy, unspecified E11.40 [facility] [address] [place] [id number] Apr, Cellulitis of toe of left foot L03.032 [place] [id number] [place] [address] Mar, Extremity cyanosis R23.0 [facility] [address] [place] [id number] Feb, Type 2 diabetes mellitus with diabetic neuropathy, unspecified E11.40 ; nursing home current use of insulin Z79.4 and Abrasion foot/toe S90.819A [place] [id number] [place] [address] Feb, [place] [address] [place] [id number] [place] [address] Jun, [place] [address] [place] [id number] [place] [address] Sep, [facility] [address] [id number] [address] Feb, [facility] [id number] [place] [address] Dec, [facility] [address] [id number] [address] Nov, [facility] [address] [address] Nov, [facility] [address] [place] [id number] October, Diabetes 250.00 [facility] [id number] [place] [address] October, [facility] [address] [address] Sep, [facility] [address] [address] Sep, [facility] [address] [address] Jul, [facility] [address] [address] Jul, [facility] [address] [id number] [address] Jul, [facility] [address] [id number] Jul, [facility] [address] [place] [id number] [address] Jul, [facility] [address] [place] [id number] [address] Jul, [facility] [address] [id number] Jul, [facility] [address] [place] [id number] [address] Jun, [facility] [address] [id number] [place] [address] Jun, [facility] [address] [facility] [id number] Jun, [facility] [address] [id number] [place] [address] Jun, [facility] [address] [id number] [place] [address] Jun, [facility] [address] [id number] [place] [address] Jun, [facility] [address] [id number] [place] [address] Jun, [facility] [address] [id number] [place] [address] Jun, [facility] [address] [id number] [place] [address] Jun, [facility] [address] [id number] [place] [address] Jun, [facility] [address] [id number] [place] [address] May, [facility] [address] [id number] [place] [address] May, [facility] [place] [facility] [address] [id number] [place] [address] May, [facility] [place] [facility] [address] [id number] [place] [address] May, [facility] [place] [facility] [address] [id number] [place] [address] May, [facility] [address] [id number] [place] [address] Apr, [facility] [place] [facility] [address] [id number], [place] [address] Apr, [facility] [place] [facility] [address] [id number] [place] [address] Apr, [facility] [place] [facility] [address] [id number] [place] [address] Mar, [facility] [place] [facility] [address] [id number] [place] [address] Mar, [facility] [place] [facility] [address] [id number] [place] [address] Mar, [facility] [place] [facility] [address] [id number] [place] [address] Mar, [facility] [place] [facility] [address] [id number] [place] [address] Mar, [facility] [place] [facility] [address] [id number] [place] [address] Mar, [facility] [place] [facility] [address] [id number] [place] [address] Mar, [facility] [place] [facility] [address] [id number] [place] [address] Mar, [facility] [place] [facility] [address] [id number] [place] [address] Mar, [facility] [place] [facility] [address] [id number], [place] [address] Mar, [facility] [place] [facility] [address] [id number], [place] [address] Mar, [facility] [place] [facility] [address] [id number] [place] [address] Mar, [facility] [place] [facility] [address] [id number], [place] [address] Mar, [facility] [place] [facility] [address] [id number] [place] [address] Mar, [facility] [place] [facility] [address] [id number] [place] [address] Feb, [facility] [place] [facility] [address] [id number] [place] [address] Jan, [facility] [place] [facility] [address] [id number] [place] [address] Jan, [facility] [place] [facility] [address] [id number] [place] [address] Jan, [facility] [place] [facility] [address] [id number] [place] [address] Jan, [facility] [place] [facility] [address] [id number] [place] [address] Jan, [facility] [place] [facility] [address] [id number] [place] [address] Jan, [facility] [place] [facility] [address] [id number] [place] [address] Dec, [facility] [place] [facility] [address] [id number] [place] [address] Dec, [facility] [place] [facility] [address] [id number] [place] [address] Dec, [facility] [place] [facility] [address] [id number] [place] [address] Dec, [facility] [place] [facility] [address] [id number] [place] [address] Dec, [facility] [place] [facility] [address] [id number] [place] [address] Dec, [facility] [place] [facility] [address] [id number] [place] [address] Dec, [facility] [place] [facility] [address] [id number] [place] [address] Dec, [facility] [place] [facility] [address] [id number] [place] [address] Dec, [facility] [place] [facility] [address] [id number] [place] [address] Dec, [facility] [place] [facility] [address] [id number] [place] [address] Nov, [facility] [place] [facility] [address] [id number] [place] [address] Nov, [facility] [place] [facility] [address] [id number] [place] [address] October, [facility] [place] [facility] [address] [id number] [place] [address] October, [facility] [place] [facility] [address] [id number] [place] [address] October, [facility] [place] [facility] [address] [id number] [place] [address] October, [facility] [place] [facility] [address] [id number] [place] [address] October, [facility] [place] [facility] [address] [id number] [place] [address] October, [facility] [place] [facility] [address] [id number] [place] [address] October, [facility] [place] [facility] [address] [id number] [place] [address] October, [facility] [place] [facility] [address] [id number] [place] [address] October, [facility] [place] [facility] [address] [id number] [place] [address] October, [facility] [place] [facility] [address] [id number] [place] [address] October, [facility] [place] [facility] [address] [id number] [place] [address] October, [facility] [place] [facility] [address] [id number] [place] [address] October, [facility] [place] [facility] [address] [id number] [place] [address] October, [facility] [place] [facility] [address] [id number] [place] [address] October, [facility] [place] [facility] [address] [id number] [place] [address] October, [facility] [place] [facility] [address] [id number] [place] [address] Sep, [facility] [place] [facility] [address] [id number] [place] [address] Sep, [facility] [place] [facility] [address] [id number] [place] [address] Aug, [facility] [place] [facility] [address] [id number] [place] [address] Aug, [facility] [place] [facility] [address] [id number] [place] [address] Aug, [facility] [place] [facility] [address] [id number] [place] [address] Aug, [facility] [place] [facility] [address] [id number] [place] [address] Aug, [facility] [place] [facility] [address] [id number] [place] [address] Aug, [facility] [place] [facility] [address] [id number] [place] [address] Jul, [facility] [place] [facility] [address] [id number] [place] [address] Jul, [facility] [place] [facility] [address] [id number] [place] [address] Jul, [facility] [place] [facility] [address] [id number] [place] [address] Jul, [facility] [place] [facility] [address] [id number] [place] [address] Jul, [facility] [place] [facility] [address] [id number] [place] [address] Jul, [facility] [place] [facility] [address] [id number] [place] [address] Jul, [facility] [place] [facility] [address] [id number] [place] [address] Jul, [facility] [place] [facility] [address] [id number] [place] [address] Jul, [facility] [place] [facility] [address] [id number] [place] [address] Jul, [facility] [place] [facility] [address] [id number] [place] [address] Jul, [facility] [place] [facility] [address] [id number] [place] [address] Jul, [facility] [place] [facility] [address] [id number] [place] [address] Jul, [facility] [place] [facility] [address] [id number] [place] [address] Jun, [facility] [place] [facility] [address] [id number] [place] [address] Jun, [facility] [place] [facility] [address] [id number] [place] [address] Jun, [facility] [place] [facility] [address] [id number] [place] [address] Jun, [facility] [place] [facility] [address] [id number] [place] [address] Jun, [facility] [place] [facility] [address] [id number] [place] [address] Jun, [facility] [place] [facility] [address] [id number] [place] [address] Jun, [facility] [address] [id number] [place] [address] Jun, [facility] [address] [id number] [place] [address] Jun, [facility] [address] [id number] [place] [address] Jun, [facility] [address] [id number] [place] [address] Jun, [facility] [address] [id number] [place] [address] Jun, [facility] [address] [id number] [place] [address] Jun, [facility] [address] [id number] [place] [address] May, [facility] [address] [id number] [place] [address] May, [facility] [address] [id number] [place] [address] May, [facility] [address] [id number] [place] [address] May, [facility] [address] [id number] [place] [address] Apr, [facility] [address] [id number] [place] [address] Apr, [facility] [place] [facility] [address] [id number] [place] [address] Apr, [facility] [place] [facility] [address] [id number] [place] [address] 15 Apr, 2013 [facility] [address] [id number] [place] [address] 14 Apr, 2013 [facility] [place] [facility] [address] [id number] [place] [address] 14 Apr, 2013 [facility] [place] [facility] [address] [id number] [place] [address] 08 Apr, 2013 [facility] [place] [facility] [address] [id number] [place] [address] 08 Apr, 2013 [facility] [place] [facility] [address] [id number] [place] [address] 07 Apr, 2013 [facility] [place] [facility] [address] [id number] [place] [address] 07 Apr, 2013 [facility] [place] [facility] [address] [id number] [place] [address] 07 Apr, 2013 [facility] [place] [facility] [address] [id number] [place] [address] Apr, [facility] [place] [facility] [address] [id number], [place] [address] 06 Apr, 2013 [facility] [place] [facility] [address] [id number] [place] [address] Apr, [facility] [place] [facility] [address] [id number], [place] [address] Apr, [facility] [place] [facility] [address] [id number], [place] [address] Apr, [facility] [place] [facility] [address] [id number], [place] [address] 30 Mar, 2013 [facility] [place] [facility] [address] [id number], [place] [address] 30 Mar, 2013 [facility] [place] [facility] [address] [id number], [place] [address] 16 Mar, 2013 [facility] [place] [facility] [address] [id number], [place] [address] 16 Mar, 2013 [facility] [place] [facility] [address] [id number], [place] [address] 14 Mar, 2013 [facility] [place] [facility] [address] [id number] [place] [address] 14 Mar, 2013 [facility] [place] [facility] [address] [id number] [place] [address] 10 Mar, 2013 [facility] [place] [facility] [address] [id number] [place] [address] 08 Mar, 2013 [facility] [place] [facility] [address] [id number] [place] [address] 07 Mar, 2013 [facility] [place] [facility] [address] [id number] [place] [address] 26 Feb, 2013 [facility] [place] [facility] [address] [id number] [place] [address] 18 Feb, 2013 [facility] [place] [facility] [address] [id number] [place] [address] 10 Feb, 2013 [facility] [place] [facility] [address] [id number] [place] [address] 09 Feb, 2013 [facility] [place] [facility] [address] [id number] [place] [address] 30 Jan, 2013 [facility] [place] [facility] [address] [id number] [place] [address] Jan, [facility] [place] [facility] [address] [id number] [place] [address] Jan, [facility] [place] [facility] [address] [id number] [place] [address] Jan, [facility] [place] [facility] [address] [id number] [place] [address] Jan, [facility] [place] [facility] [address] [id number] [place] [address] Dec, [facility] [place] [facility] [address] [id number] [place] [address] Dec, [facility] [place] [facility] [address] [id number] [place] [address] Jul, [facility] [place] [facility] [address] [id number] [place] [address] Jul, [facility] [place] [facility] [address] [id number] [place] [address] Jul, [facility] [place] [facility] [address] [id number] [place] [address] Jun, [facility] [place] [facility] [address] [id number] [place] [address] Jun, [facility] [place] [facility] [address] [id number] [place] [address] Apr, [facility] [place] [facility] [address] [id number] [place] [address] Apr, [facility] [place] [facility] [address] [id number] [place] [address] Apr, [facility] [place] [facility] [address] [id number] [place] [address] Apr, [facility] [place] [facility] [address] [id number] [place] [address] Apr, [facility] [place] [facility] [address] [id number] [place] [address] Apr, [facility] [place] [facility] [address] [id number] [place] [address] Apr, [facility] [place] [facility] [address] [id number] [place] [address] Apr, [facility] [place] [facility] [address] [id number] [place] [address] Apr, [facility] [place] [facility] [address] [id number] [place] [address] Mar, [facility] [place] [facility] [address] [id number] [place] [address] Mar, [facility] [id number] [address] Mar, [facility] [address] [facility] [id number], [place] [address] Mar, [facility] [id number] [address] Mar, [facility] [id number] [address] Mar, [facility] [id number] [address] Feb, [facility] [id number] [place] [address] Feb, [facility] [id number] [address] Feb, [facility] [id number] [address] Feb, [facility] [id number] [address] Feb, [facility] [id number] [address] Feb, [facility] [id number] [address] Feb, IMMUNIZATIONS No Known Immunizations SOCIAL HISTORY Never Assessed REASON FOR VISIT EMR-[facility] PLAN OF CARE VITAL SIGNS MEDICATIONS Unknown Medications RESULTS No Results PROCEDURES No Known procedures INSTRUCTIONS MEDICATIONS ADMINISTERED No Known Medications MEDICAL (GENERAL) HISTORY Type Description Date Hospitalization History [facility] [place]- Left leg redness 04/26/2017
--- OUTSIDE RECORDS SUMMARY | 2019-01-03 12:48 | XMS REPORT ---
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 Core Composer Feeder Name Role Phone Migration, Doctor Unavailable Unavailable PROBLEMS Type Condition ICD9-CM Code [id number] Code Onset Dates Condition Status SNOMED Code Problem Difficulty in walking, not elsewhere classified R26.2 Active 839790489 Problem Muscle weakness (generalized) M62.81 Active 87784431 Problem Age-related osteoporosis without current pathological fracture M81.0 Active 29407939 Problem Other hereditary and idiopathic neuropathies G60.8 Active 588855120 Problem Other chronic pain G89.29 Active 00022601 Problem Essential (primary) hypertension I10 Active 84875572 Problem Morbid (severe) obesity due to excess calories E66.01 Active 676840606 Problem Benign prostatic hyperplasia with lower urinary tract symptoms, symptom details unspecified N40.1 Active 125629939 Problem Right foot drop M21.371 Active [id number] Problem Type 2 diabetes mellitus without complication, without long-term current use of insulin E11.9 Active 159980062 Problem Type 2 diabetes mellitus with diabetic neuropathy, unspecified E11.40 Active 75715854 Problem 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 Active 419963435 Problem Type 2 diabetes mellitus with hyperglycemia E11.65 Active 66706563 Problem Allergic rhinitis, unspecified seasonality, unspecified trigger J30.9 Active 66990140 Problem Hyperlipidemia, unspecified hyperlipidemia type E78.5 Active 37109622 Problem Insomnia, unspecified type G47.00 Active 226713921 Problem Constipation, unspecified constipation type K59.00 Active 33175661 Problem [facility] current use of insulin Z79.4 Active 931575175 ALLERGIES No Information ENCOUNTERS Encounter Location Date Diagnosis [facility] [address] [place] [id number] Sep, Type 2 diabetes mellitus with diabetic neuropathy, unspecified E11.40 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 [facility] [address] [facility] [id number] [place] [address] Aug, [place] [address], [place] [address] Aug, Urinary tract infection without hematuria, site unspecified N39.0 [facility] [address] [place] [place] [id number] Aug, Left leg swelling M79.89 [place] [address] [place] [id number] [place] [address] Jul, [place] [address] [place] [id number] [place] [address] Jul, [facility] current use of insulin Z79.4 and Type 2 diabetes mellitus with hyperglycemia E11.65 [place] [address] [place] [id number] [place] [address] Jun, [facility] [address] [place] [id number] Jun, Left elbow pain M25.522 [facility] [address] [place] [id number] Jun, Abrasion foot/toe S90.819A and Type 2 diabetes mellitus with diabetic neuropathy, unspecified E11.40 [facility] [address] [place] [id number] Apr, Cellulitis of toe of left foot L03.032 [place] [id number] [place] [address] Mar, Extremity cyanosis R23.0 [facility] [address] [place] [id number] Feb, Type 2 diabetes mellitus with diabetic neuropathy, unspecified E11.40 ; [facility] current use of insulin Z79.4 and Abrasion foot/toe S90.819A [place] [id number] [place] [address] Feb, [place] [address] [place] [id number] [place] [address] Jun, [place] [address] [place] [id number] [place] [address] Sep, [facility] [address] [id number], [place] [address] Feb, [facility] [address] [place] [address] Dec, [facility] [address] [place] [id number] [address] Nov, [facility] [address] [address] Nov, [facility] [address] [place] [id number] October, Diabetes 250.00 [facility] [address] [place] [address] October, [facility] [address] [address] Sep, [facility] [address] [address] Sep, [facility] [address] [address] Jul, [facility] [address] [address] Jul, [facility] [address] [place] [id number] [address] Jul, [facility] [address] [place] [id number] Jul, [facility] [address] [place] [id number] [address] Jul, [facility] [address] [place] [address] [id number] [address] Jul, [facility] [address] [place] [id number] Jul, [facility] [address] [place] [id number] [address] Jun, [facility] [address] [id number] [place] [address] Jun, [facility] [address] [facility] [id number] Jun, [facility] [address] [id number] [place] [address] Jun, [facility] [address] [id number] [place] [address] Jun, [facility] [address] [id number] [place] [address] Jun, [facility] [address] [id number] [place] [address] Jun, [facility] [address] [id number] [place] [address] Jun, [facility] [address] [id number] [place] [address] Jun, [facility] [address] [id number] [place] [address] Jun, [facility] [address] [id number] [place] [address] May, [facility] [address] [id number] [place] [address] May, [facility] [place] [facility] [address] [id number] [place] [address] May, [facility] [place] [facility] [address] [id number] [place] [address] May, [facility] [place] [facility] [address] [id number] [place] [address] May, [facility] [address] [id number] [place] [address] Apr, [facility] [place] [facility] [address] [id number], [place] [address] Apr, [facility] [place] [facility] [address] [id number] [place] [address] Apr, [facility] [place] [facility] [address] [id number] [place] [address] Mar, [facility] [place] [facility] [address] [id number] [place] [address] Mar, [facility] [place] [facility] [address] [id number] [place] [address] Mar, [facility] [place] [facility] [address] [id number] [place] [address] Mar, [facility] [place] [facility] [address] [id number] [place] [address] Mar, [facility] [place] [facility] [address] [id number] [place] [address] Mar, [facility] [place] [facility] [address] [id number] [place] [address] Mar, [facility] [place] [facility] [address] [id number] [place] [address] Mar, [facility] [place] [facility] [address] [id number] [place] [address] Mar, [facility] [place] [facility] [address] [id number], [place] [address] Mar, [facility] [place] [facility] [address] [id number], [place] [address] Mar, [facility] [place] [facility] [address] [id number] [place] [address] Mar, [facility] [place] [facility] [address] [id number], [place] [address] Mar, [facility] [place] [facility] [address] [id number] [place] [address] Mar, [facility] [place] [facility] [address] [id number] [place] [address] Feb, [facility] [place] [facility] [address] [id number] [place] [address] Jan, [facility] [place] [facility] [address] [id number] [place] [address] Jan, [facility] [place] [facility] [address] [id number] [place] [address] Jan, [facility] [place] [facility] [address] [id number] [place] [address] Jan, [facility] [place] [facility] [address] [id number] [place] [address] Jan, [facility] [place] [facility] [address] [id number] [place] [address] Jan, [facility] [place] [facility] [address] [id number] [place] [address] Dec, [facility] [place] [facility] [address] [id number] [place] [address] Dec, [facility] [place] [facility] [address] [id number] [place] [address] Dec, [facility] [place] [facility] [address] [id number] [place] [address] Dec, [facility] [place] [facility] [address] [id number] [place] [address] Dec, [facility] [place] [facility] [address] [id number] [place] [address] Dec, [facility] [place] [facility] [address] [id number] [place] [address] Dec, [facility] [place] [facility] [address] [id number] [place] [address] Dec, [facility] [place] [facility] [address] [id number] [place] [address] Dec, [facility] [place] [facility] [address] [id number] [place] [address] Dec, [facility] [place] [facility] [address] [id number] [place] [address] Nov, [facility] [place] [facility] [address] [id number] [place] [address] Nov, [facility] [place] [facility] [address] [id number] [place] [address] October, [facility] [place] [facility] [address] [id number] [place] [address] October, [facility] [place] [facility] [address] [id number] [place] [address] October, [facility] [place] [facility] [address] [id number] [place] [address] October, [facility] [place] [facility] [address] [id number] [place] [address] October, [facility] [place] [facility] [address] [id number] [place] [address] October, [facility] [place] [facility] [address] [id number] [place] [address] October, [facility] [place] [facility] [address] [id number] [place] [address] October, [facility] [place] [facility] [address] [id number] [place] [address] October, [facility] [place] [facility] [address] [id number] [place] [address] October, [facility] [place] [facility] [address] [id number] [place] [address] October, [facility] [place] [facility] [address] [id number] [place] [address] October, [facility] [place] [facility] [address] [id number] [place] [address] October, [facility] [place] [facility] [address] [id number] [place] [address] October, [facility] [place] [facility] [address] [id number] [place] [address] October, [facility] [place] [facility] [address] [id number] [place] [address] October, [facility] [place] [facility] [address] [id number] [place] [address] Sep, [facility] [place] [facility] [address] [id number] [place] [address] Sep, [facility] [place] [facility] [address] [id number] [place] [address] Aug, [facility] [place] [facility] [address] [id number] [place] [address] Aug, [facility] [place] [facility] [address] [id number] [place] [address] Aug, [facility] [place] [facility] [address] [id number] [place] [address] Aug, [facility] [place] [facility] [address] [id number] [place] [address] Aug, [facility] [place] [facility] [address] [id number] [place] [address] Aug, [facility] [place] [facility] [address] [id number] [place] [address] Jul, [facility] [place] [facility] [address] [id number] [place] [address] Jul, [facility] [place] [facility] [address] [id number] [place] [address] Jul, [facility] [place] [facility] [address] [id number] [place] [address] Jul, [facility] [place] [facility] [address] [id number] [place] [address] Jul, [facility] [place] [facility] [address] [id number] [place] [address] Jul, [facility] [place] [facility] [address] [id number] [place] [address] Jul, [facility] [place] [facility] [address] [id number] [place] [address] Jul, [facility] [place] [facility] [address] [id number] [place] [address] Jul, [facility] [place] [facility] [address] [id number] [place] [address] Jul, [facility] [place] [facility] [address] [id number] [place] [address] Jul, [facility] [place] [facility] [address] [id number] [place] [address] Jul, [facility] [place] [facility] [address] [id number] [place] [address] Jul, [facility] [place] [facility] [address] [id number] [place] [address] Jun, [facility] [place] [facility] [address] [id number] [place] [address] Jun, [facility] [place] [facility] [address] [id number] [place] [address] Jun, [facility] [place] [facility] [address] [id number] [place] [address] Jun, [facility] [place] [facility] [address] [id number] [place] [address] Jun, [facility] [place] [facility] [address] [id number] [place] [address] Jun, [facility] [place] [facility] [address] [id number] [place] [address] Jun, [facility] [address] [id number] [place] [address] Jun, [facility] [address] [id number] [place] [address] Jun, [facility] [address] [id number] [place] [address] Jun, [facility] [address] [id number] [place] [address] Jun, [facility] [address] [id number] [place] [address] Jun, [facility] [address] [id number] [place] [address] Jun, [facility] [address] [id number] [place] [address] May, [facility] [address] [id number] [place] [address] May, [facility] [address] [id number] [place] [address] May, [facility] [address] [id number] [place] [address] May, [facility] [address] [id number] [place] [address] Apr, [facility] [address] [id number] [place] [address] Apr, [facility] [place] [facility] [address] [id number] [place] [address] Apr, [facility] [place] [facility] [address] [id number] [place] [address] 15 Apr, 2013 [facility] [address] [id number] [place] [address] 14 Apr, 2013 [facility] [place] [facility] [address] [id number] [place] [address] 14 Apr, 2013 [facility] [place] [facility] [address] [id number] [place] [address] 08 Apr, 2013 [facility] [place] [facility] [address] [id number] [place] [address] 08 Apr, 2013 [facility] [place] [facility] [address] [id number] [place] [address] 07 Apr, 2013 [facility] [place] [facility] [address] [id number] [place] [address] 07 Apr, 2013 [facility] [place] [facility] [address] [id number] [place] [address] 07 Apr, 2013 [facility] [place] [facility] [address] [id number] [place] [address] Apr, [facility] [place] [facility] [address] [id number], [place] [address] 06 Apr, 2013 [facility] [place] [facility] [address] [id number] [place] [address] Apr, [facility] [place] [facility] [address] [id number], [place] [address] Apr, [facility] [place] [facility] [address] [id number], [place] [address] Apr, [facility] [place] [facility] [address] [id number], [place] [address] 30 Mar, 2013 [facility] [place] [facility] [address] [id number], [place] [address] 30 Mar, 2013 [facility] [place] [facility] [address] [id number], [place] [address] 16 Mar, 2013 [facility] [place] [facility] [address] [id number], [place] [address] 16 Mar, 2013 [facility] [place] [facility] [address] [id number], [place] [address] 14 Mar, 2013 [facility] [place] [facility] [address] [id number] [place] [address] 14 Mar, 2013 [facility] [place] [facility] [address] [id number] [place] [address] 10 Mar, 2013 [facility] [place] [facility] [address] [id number] [place] [address] 08 Mar, 2013 [facility] [place] [facility] [address] [id number] [place] [address] 07 Mar, 2013 [facility] [place] [facility] [address] [id number] [place] [address] 26 Feb, 2013 [facility] [place] [facility] [address] [id number] [place] [address] 18 Feb, 2013 [facility] [place] [facility] [address] [id number] [place] [address] 10 Feb, 2013 [facility] [place] [facility] [address] [id number] [place] [address] 09 Feb, 2013 [facility] [place] [facility] [address] [id number] [place] [address] 30 Jan, 2013 [facility] [place] [facility] [address] [id number] [place] [address] Jan, [facility] [place] [facility] [address] [id number] [place] [address] Jan, [facility] [place] [facility] [address] [id number] [place] [address] Jan, [facility] [place] [facility] [address] [id number] [place] [address] Jan, [facility] [place] [facility] [address] [id number] [place] [address] Dec, [facility] [place] [facility] [address] [id number] [place] [address] Dec, [facility] [place] [facility] [address] [id number] [place] [address] Jul, [facility] [place] [facility] [address] [id number] [place] [address] Jul, [facility] [place] [facility] [address] [id number] [place] [address] Jul, [facility] [place] [facility] [address] [id number] [place] [address] Jun, [facility] [place] [facility] [address] [id number] [place] [address] Jun, [facility] [place] [facility] [address] [id number] [place] [address] Apr, [facility] [place] [facility] [address] [id number] [place] [address] Apr, [facility] [place] [facility] [address] [id number] [place] [address] Apr, [facility] [place] [facility] [address] [id number] [place] [address] Apr, [facility] [place] [facility] [address] [id number] [place] [address] Apr, [facility] [place] [facility] [address] [id number] [place] [address] Apr, [facility] [place] [facility] [address] [id number] [place] [address] Apr, [facility] [place] [facility] [address] [id number] [place] [address] Apr, [facility] [place] [facility] [address] [id number] [place] [address] Apr, [facility] [place] [facility] [address] [id number] [place] [address] Mar, [facility] [place] [facility] [address] [id number] [place] [address] Mar, [facility] [id number] [address] Mar, [facility] [address] [facility] [id number] [address] Mar, [facility] [id number] [address] Mar, [facility] [address] [address] Mar, [facility] [id number] [address] Feb, [facility] [id number] [place] [address] Feb, [facility] [address] [address] Feb, [facility] [address] [address] Feb, [facility] [address] [address] Feb, [facility] [id number] [address] Feb, [facility] [address] [address] Feb, IMMUNIZATIONS No Known Immunizations SOCIAL HISTORY Never Assessed REASON FOR VISIT EMR-[facility] PLAN OF CARE VITAL SIGNS MEDICATIONS Unknown Medications RESULTS No Results PROCEDURES No Known procedures INSTRUCTIONS MEDICATIONS ADMINISTERED No Known Medications MEDICAL (GENERAL) HISTORY Type Description Date Hospitalization History [facility]- Left leg redness 04/26/2017
--- OUTSIDE RECORDS SUMMARY | 2019-01-03 12:49 | XMS REPORT ---
Author Author Migration, Doctor Organization [facility] Address Unknown Phone Unavailable Care Team Providers Care Cellar Pumper Name Role Phone Migration, Doctor Unavailable Unavailable PROBLEMS Type Condition ICD9-CM Code VHH01-RY Code Onset Dates Condition Status SNOMED Code Problem Difficulty in walking, not elsewhere classified R26.2 Active 232375074 Problem Muscle weakness (generalized) M62.81 Active 33722305 Problem Age-related osteoporosis without current pathological fracture M81.0 Active 91574504 Problem Other hereditary and idiopathic neuropathies G60.8 Active 035156026 Problem Other chronic pain G89.29 Active 39033522 Problem Essential (primary) hypertension I10 Active 52790514 Problem Morbid (severe) obesity due to excess calories E66.01 Active 394964468 Problem Benign prostatic hyperplasia with lower urinary tract symptoms, symptom details unspecified N40.1 Active 164306798 Problem Right foot drop M21.371 Active [id number] Problem Type 2 diabetes mellitus without complication, without long-term current use of insulin E11.9 Active 428353120 Problem Type 2 diabetes mellitus with diabetic neuropathy, unspecified E11.40 Active 05245154 Problem 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 Active 295696264 Problem Type 2 diabetes mellitus with hyperglycemia E11.65 Active 37267630 Problem Allergic rhinitis, unspecified seasonality, unspecified trigger J30.9 Active 14762115 Problem Hyperlipidemia, unspecified hyperlipidemia type E78.5 Active 24223862 Problem Insomnia, unspecified type G47.00 Active 159771286 Problem Constipation, unspecified constipation type K59.00 Active 23716658 Problem MCFP current use of insulin Z79.4 Active 404708054 ALLERGIES No Information ENCOUNTERS Encounter Location Date Diagnosis [facility] [address], [place] [id number] Sep, Type 2 diabetes mellitus with diabetic neuropathy, unspecified E11.40 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 [facility] [address] [facility] [id number] [place] [address] Aug, [place] [address] [address] Aug, Urinary tract infection without hematuria, site unspecified N39.0 [facility] [address], [place] [id number] Aug, Left leg swelling M79.89 [place] [address] [place] [id number] [place] [address] Jul, [place] [address] [place] [id number] [place] [address] Jul, [facility] current use of insulin Z79.4 and Type 2 diabetes mellitus with hyperglycemia E11.65 [place] [address] [place] [id number] [place] [address] Jun, [facility] [address] [place] [id number] Jun, Left elbow pain M25.522 [facility] [address] [place] [id number] Jun, Abrasion foot/toe S90.819A and Type 2 diabetes mellitus with diabetic neuropathy, unspecified E11.40 [facility] [address] [place] [id number] Apr, Cellulitis of toe of left foot L03.032 [place] [id number] [place] [address] Mar, Extremity cyanosis R23.0 [facility] [address] [place] [id number] Feb, Type 2 diabetes mellitus with diabetic neuropathy, unspecified E11.40 ; [facility] current use of insulin Z79.4 and Abrasion foot/toe S90.819A [place] [id number] [place] [address] Feb, [place] [address] [place] [id number] [place] [address] Jun, [place] [address] [place] [id number] [place] [address] Sep, [facility] [address] [id number], [place] [address] Feb, [facility] [id number] [place] [address] Dec, [facility] [address] [id number], [place] [address] Nov, [facility] [address], [place] [address] Nov, [facility] [address] [id number] October, Diabetes 250.00 [facility] [id number] [place] [address] October, [facility] [address], [place] [address] Sep, [facility] [address], [place] [address] Sep, [facility] [address], [place] [address] Jul, [facility] [address], [place] [address] Jul, [facility] [address] [place] [id number], [place] [address] Jul, [facility] [address] [id number] Jul, [facility] [address] [id number], [place] [address] Jul, [facility] [id number], [place] [address] Jul, [facility] [address] [id number] Jul, [facility] [address] [id number], [place] [address] Jun, [facility] [address] [id number] [place] [address] Jun, [facility] [address] [facility] [id number] Jun, [facility] [address] [id number] [place] [address] Jun, [facility] [address] [id number] [place] [address] Jun, [facility] [address] [id number] [place] [address] Jun, [facility] [address] [id number] [place] [address] Jun, [facility] [address] [id number] [place] [address] Jun, [facility] [address] [id number] [place] [address] Jun, [facility] [address] [id number] [place] [address] Jun, [facility] [address] [id number] [place] [address] May, [facility] [address] [id number] [place] [address] May, [facility] [place] [facility] [address] [id number] [place] [address] May, [facility] [place] [facility] [address] [id number] [place] [address] May, [facility] [place] [facility] [address] [id number] [place] [address] May, [facility] [address] [id number] [place] [address] Apr, [facility] [place] [facility] [address] [id number], [place] [address] Apr, [facility] [place] [facility] [address] [id number] [place] [address] Apr, [facility] [place] [facility] [address] [id number] [place] [address] Mar, [facility] [place] [facility] [address] [id number] [place] [address] Mar, [facility] [place] [facility] [address] [id number] [place] [address] Mar, [facility] [place] [facility] [address] [id number] [place] [address] Mar, [facility] [place] [facility] [address] [id number] [place] [address] Mar, [facility] [place] [facility] [address] [id number] [place] [address] Mar, [facility] [place] [facility] [address] [id number] [place] [address] Mar, [facility] [place] [facility] [address] [id number] [place] [address] Mar, [facility] [place] [facility] [address] [id number] [place] [address] Mar, [facility] [place] [facility] [address] [id number], [place] [address] Mar, [facility] [place] [facility] [address] [id number], [place] [address] Mar, [facility] [place] [facility] [address] [id number] [place] [address] Mar, [facility] [place] [facility] [address] [id number], [place] [address] Mar, [facility] [place] [facility] [address] [id number] [place] [address] Mar, [facility] [place] [facility] [address] [id number] [place] [address] Feb, [facility] [place] [facility] [address] [id number] [place] [address] Jan, [facility] [place] [facility] [address] [id number] [place] [address] Jan, [facility] [place] [facility] [address] [id number] [place] [address] Jan, [facility] [place] [facility] [address] [id number] [place] [address] Jan, [facility] [place] [facility] [address] [id number] [place] [address] Jan, [facility] [place] [facility] [address] [id number] [place] [address] Jan, [facility] [place] [facility] [address] [id number] [place] [address] Dec, [facility] [place] [facility] [address] [id number] [place] [address] Dec, [facility] [place] [facility] [address] [id number] [place] [address] Dec, [facility] [place] [facility] [address] [id number] [place] [address] Dec, [facility] [place] [facility] [address] [id number] [place] [address] Dec, [facility] [place] [facility] [address] [id number] [place] [address] Dec, [facility] [place] [facility] [address] [id number] [place] [address] Dec, [facility] [place] [facility] [address] [id number] [place] [address] Dec, [facility] [place] [facility] [address] [id number] [place] [address] Dec, [facility] [place] [facility] [address] [id number] [place] [address] Dec, [facility] [place] [facility] [address] [id number] [place] [address] Nov, [facility] [place] [facility] [address] [id number] [place] [address] Nov, [facility] [place] [facility] [address] [id number] [place] [address] October, [facility] [place] [facility] [address] [id number] [place] [address] October, [facility] [place] [facility] [address] [id number] [place] [address] October, [facility] [place] [facility] [address] [id number] [place] [address] October, [facility] [place] [facility] [address] [id number] [place] [address] October, [facility] [place] [facility] [address] [id number] [place] [address] October, [facility] [place] [facility] [address] [id number] [place] [address] October, [facility] [place] [facility] [address] [id number] [place] [address] October, [facility] [place] [facility] [address] [id number] [place] [address] October, [facility] [place] [facility] [address] [id number] [place] [address] October, [facility] [place] [facility] [address] [id number] [place] [address] October, [facility] [place] [facility] [address] [id number] [place] [address] October, [facility] [place] [facility] [address] [id number] [place] [address] October, [facility] [place] [facility] [address] [id number] [place] [address] October, [facility] [place] [facility] [address] [id number] [place] [address] October, [facility] [place] [facility] [address] [id number] [place] [address] October, [facility] [place] [facility] [address] [id number] [place] [address] Sep, [facility] [place] [facility] [address] [id number] [place] [address] Sep, [facility] [place] [facility] [address] [id number] [place] [address] Aug, [facility] [place] [facility] [address] [id number] [place] [address] Aug, [facility] [place] [facility] [address] [id number] [place] [address] Aug, [facility] [place] [facility] [address] [id number] [place] [address] Aug, [facility] [place] [facility] [address] [id number] [place] [address] Aug, [facility] [place] [facility] [address] [id number] [place] [address] Aug, [facility] [place] [facility] [address] [id number] [place] [address] Jul, [facility] [place] [facility] [address] [id number] [place] [address] Jul, [facility] [place] [facility] [address] [id number] [place] [address] Jul, [facility] [place] [facility] [address] [id number] [place] [address] Jul, [facility] [place] [facility] [address] [id number] [place] [address] Jul, [facility] [place] [facility] [address] [id number] [place] [address] Jul, [facility] [place] [facility] [address] [id number] [place] [address] Jul, [facility] [place] [facility] [address] [id number] [place] [address] Jul, [facility] [place] [facility] [address] [id number] [place] [address] Jul, [facility] [place] [facility] [address] [id number] [place] [address] Jul, [facility] [place] [facility] [address] [id number] [place] [address] Jul, [facility] [place] [facility] [address] [id number] [place] [address] Jul, [facility] [place] [facility] [address] [id number] [place] [address] Jul, [facility] [place] [facility] [address] [id number] [place] [address] Jun, [facility] [place] [facility] [address] [id number] [place] [address] Jun, [facility] [place] [facility] [address] [id number] [place] [address] Jun, [facility] [place] [facility] [address] [id number] [place] [address] Jun, [facility] [place] [facility] [address] [id number] [place] [address] Jun, [facility] [place] [facility] [address] [id number] [place] [address] Jun, [facility] [place] [facility] [address] [id number] [place] [address] Jun, [facility] [address] [id number] [place] [address] Jun, [facility] [address] [id number] [place] [address] Jun, [facility] [address] [id number] [place] [address] Jun, [facility] [address] [id number] [place] [address] Jun, [facility] [address] [id number] [place] [address] Jun, [facility] [address] [id number] [place] [address] Jun, [facility] [address] [id number] [place] [address] May, [facility] [address] [id number] [place] [address] May, [facility] [address] [id number] [place] [address] May, [facility] [address] [id number] [place] [address] May, [facility] [address] [id number] [place] [address] Apr, [facility] [address] [id number] [place] [address] Apr, [facility] [place] [facility] [address] [id number] [place] [address] Apr, [facility] [place] [facility] [address] [id number] [place] [address] 15 Apr, 2013 [facility] [address] [id number] [place] [address] 14 Apr, 2013 [facility] [place] [facility] [address] [id number] [place] [address] 14 Apr, 2013 [facility] [place] [facility] [address] [id number] [place] [address] 08 Apr, 2013 [facility] [place] [facility] [address] [id number] [place] [address] 08 Apr, 2013 [facility] [place] [facility] [address] [id number] [place] [address] 07 Apr, 2013 [facility] [place] [facility] [address] [id number] [place] [address] 07 Apr, 2013 [facility] [place] [facility] [address] [id number] [place] [address] 07 Apr, 2013 [facility] [place] [facility] [address] [id number] [place] [address] Apr, [facility] [place] [facility] [address] [id number], [place] [address] 06 Apr, 2013 [facility] [place] [facility] [address] [id number] [place] [address] Apr, [facility] [place] [facility] [address] [id number], [place] [address] Apr, [facility] [place] [facility] [address] [id number], [place] [address] Apr, [facility] [place] [facility] [address] [id number], [place] [address] 30 Mar, 2013 [facility] [place] [facility] [address] [id number], [place] [address] 30 Mar, 2013 [facility] [place] [facility] [address] [id number], [place] [address] 16 Mar, 2013 [facility] [place] [facility] [address] [id number], [place] [address] 16 Mar, 2013 [facility] [place] [facility] [address] [id number], [place] [address] 14 Mar, 2013 [facility] [place] [facility] [address] [id number] [place] [address] 14 Mar, 2013 [facility] [place] [facility] [address] [id number] [place] [address] 10 Mar, 2013 [facility] [place] [facility] [address] [id number] [place] [address] 08 Mar, 2013 [facility] [place] [facility] [address] [id number] [place] [address] 07 Mar, 2013 [facility] [place] [facility] [address] [id number] [place] [address] 26 Feb, 2013 [facility] [place] [facility] [address] [id number] [place] [address] 18 Feb, 2013 [facility] [place] [facility] [address] [id number] [place] [address] 10 Feb, 2013 [facility] [place] [facility] [address] [id number] [place] [address] 09 Feb, 2013 [facility] [place] [facility] [address] [id number] [place] [address] 30 Jan, 2013 [facility] [place] [facility] [address] [id number] [place] [address] Jan, [facility] [place] [facility] [address] [id number] [place] [address] Jan, [facility] [place] [facility] [address] [id number] [place] [address] Jan, [facility] [place] [facility] [address] [id number] [place] [address] Jan, [facility] [place] [facility] [address] [id number] [place] [address] Dec, [facility] [place] [facility] [address] [id number] [place] [address] Dec, [facility] [place] [facility] [address] [id number] [place] [address] Jul, [facility] [place] [facility] [address] [id number] [place] [address] Jul, [facility] [place] [facility] [address] [id number] [place] [address] Jul, [facility] [place] [facility] [address] [id number] [place] [address] Jun, [facility] [place] [facility] [address] [id number] [place] [address] Jun, [facility] [place] [facility] [address] [id number] [place] [address] Apr, [facility] [place] [facility] [address] [id number] [place] [address] Apr, [facility] [place] [facility] [address] [id number] [place] [address] Apr, [facility] [place] [facility] [address] [id number] [place] [address] Apr, [facility] [place] [facility] [address] [id number] [place] [address] Apr, [facility] [place] [facility] [address] [id number] [place] [address] Apr, [facility] [place] [facility] [address] [id number] [place] [address] Apr, [facility] [place] [facility] [address] [id number] [place] [address] Apr, [facility] [place] [facility] [address] [id number] [place] [address] Apr, [facility] [place] [facility] [address] [id number] [place] [address] Mar, [facility] [place] [facility] [address] [id number] [place] [address] Mar, [facility] [id number] [address] Mar, [facility] [address] [facility] [id number], [place] [address] Mar, [facility] [id number], [place] [address] Mar, [facility] [id number], [place] [address] Mar, [facility] [id number], [place] [address] Feb, [facility] [id number] [place] [address] Feb, [facility] [id number], [place] [address] Feb, [facility] [id number] [place] [address] Feb, [facility] [id number], [place] [address] Feb, [facility] [id number] [place] [address] Feb, [facility] [id number], [place] [address] Feb, IMMUNIZATIONS No Known Immunizations SOCIAL HISTORY Never Assessed REASON FOR VISIT EMR[place] [place] C[place] VITAL SIGNS MEDICATIONS Unknown Medications RESULTS No Results PROCEDURES No Known procedures INSTRUCTIONS MEDICATIONS ADMINISTERED No Known Medications MEDICAL (GENERAL) HISTORY Type Description Date Hospitalization History [facility]- Left leg redness 04/26/2017
--- OUTSIDE RECORDS SUMMARY | 2019-01-03 12:49 | XMS REPORT ---
Author Author Migration, Doctor Organization [facility] Address Unknown Phone Unavailable Care Team Providers Care Stock Sheets Cleaner Inspector Name Role Phone Migration, Doctor Unavailable Unavailable PROBLEMS Type Condition ICD9-CM Code HOU39-RP Code Onset Dates Condition Status SNOMED Code Problem Difficulty in walking, not elsewhere classified R26.2 Active 150965544 Problem Muscle weakness (generalized) M62.81 Active 52553659 Problem Age-related osteoporosis without current pathological fracture M81.0 Active 02505731 Problem Other hereditary and idiopathic neuropathies G60.8 Active 712972907 Problem Other chronic pain G89.29 Active 95323224 Problem Essential (primary) hypertension I10 Active 56629272 Problem Morbid (severe) obesity due to excess calories E66.01 Active 274640431 Problem Benign prostatic hyperplasia with lower urinary tract symptoms, symptom details unspecified N40.1 Active 589171156 Problem Right foot drop M21.371 Active [id number] Problem Type 2 diabetes mellitus without complication, without long-term current use of insulin E11.9 Active 146439822 Problem Type 2 diabetes mellitus with diabetic neuropathy, unspecified E11.40 Active 39259144 Problem 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 Active 294597907 Problem Type 2 diabetes mellitus with hyperglycemia E11.65 Active 53307284 Problem Allergic rhinitis, unspecified seasonality, unspecified trigger J30.9 Active 85561456 Problem Hyperlipidemia, unspecified hyperlipidemia type E78.5 Active 34748170 Problem Insomnia, unspecified type G47.00 Active 610744515 Problem Constipation, unspecified constipation type K59.00 Active 65353067 Problem assisted current use of insulin Z79.4 Active 087535466 ALLERGIES No Information ENCOUNTERS Encounter Location Date Diagnosis [facility] [address] [id number] Sep, Type 2 diabetes mellitus with diabetic neuropathy, unspecified E11.40 and chili pepper grinder current use of insulin Z79.4 [facility] [address] [facility] [id number] [place] [address] Aug, [place] [address] [address] Aug, Urinary tract infection without hematuria, site unspecified N39.0 [facility] [address] [id number] Aug, Left leg swelling M79.89 [place] [address] [place] [id number] [place] [address] Jul, [place] [address] [place] [id number] [place] [address] Jul, assisted current use of insulin Z79.4 and Type 2 diabetes mellitus with hyperglycemia E11.65 [place] [address] [place] [id number] [place] [address] Jun, [facility] [address] [place] [id number] Jun, Left elbow pain M25.522 [facility] [address] [place] [id number] Jun, Abrasion foot/toe S90.819A and Type 2 diabetes mellitus with diabetic neuropathy, unspecified E11.40 [facility] [address] [place] [id number] Apr, Cellulitis of toe of left foot L03.032 [place] [id number] [place] [address] Mar, Extremity cyanosis R23.0 [facility] [address] [place] [id number] Feb, Type 2 diabetes mellitus with diabetic neuropathy, unspecified E11.40 ; assisted current use of insulin Z79.4 and Abrasion foot/toe S90.819A [place] [id number] [place] [address] Feb, [place] [address] [place] [id number] [place] [address] Jun, [place] [address] [place] [id number] [place] [address] Sep, [facility] [address] [id number], [place] [address] Feb, [facility] [address] [place] [address] Dec, [facility] [address] [place] [id number], [place] [address] Nov, [facility] [address], [place] [address] Nov, [facility] [address] [place] [id number] October, Diabetes 250.00 [facility] [address] [place] [address] October, [facility] [address], [place] [address] Sep, [facility] [address], [place] [address] Sep, [facility] [address], [place] [address] Jul, [facility] [address], [place] [address] Jul, [facility] [address] [id number], [place] [address] Jul, [facility] [address] [id number] Jul, [facility] [id number], [place] [address] Jul, [facility] [id number], [place] [address] Jul, [facility] [address] [id number] Jul, [facility] [id number], [place] [address] Jun, [facility] [address] [id number] [place] [address] Jun, [facility] [address] [facility] [id number] Jun, [facility] [address] [id number] [place] [address] Jun, [facility] [address] [id number] [place] [address] Jun, [facility] [address] [id number] [place] [address] Jun, [facility] [address] [id number] [place] [address] Jun, [facility] [address] [id number] [place] [address] Jun, [facility] [address] [id number] [place] [address] Jun, [facility] [address] [id number] [place] [address] Jun, [facility] [address] [id number] [place] [address] May, [facility] [address] [id number] [place] [address] May, [facility] [place] [facility] [address] [id number] [place] [address] May, [facility] [place] [facility] [address] [id number] [place] [address] May, [facility] [place] [facility] [address] [id number] [place] [address] May, [facility] [address] [id number] [place] [address] Apr, [facility] [place] [facility] [address] [id number], [place] [address] Apr, [facility] [place] [facility] [address] [id number] [place] [address] Apr, [facility] [place] [facility] [address] [id number] [place] [address] Mar, [facility] [place] [facility] [address] [id number] [place] [address] Mar, [facility] [place] [facility] [address] [id number] [place] [address] Mar, [facility] [place] [facility] [address] [id number] [place] [address] Mar, [facility] [place] [facility] [address] [id number] [place] [address] Mar, [facility] [place] [facility] [address] [id number] [place] [address] Mar, [facility] [place] [facility] [address] [id number] [place] [address] Mar, [facility] [place] [facility] [address] [id number] [place] [address] Mar, [facility] [place] [facility] [address] [id number] [place] [address] Mar, [facility] [place] [facility] [address] [id number], [place] [address] Mar, [facility] [place] [facility] [address] [id number], [place] [address] Mar, [facility] [place] [facility] [address] [id number] [place] [address] Mar, [facility] [place] [facility] [address] [id number], [place] [address] Mar, [facility] [place] [facility] [address] [id number] [place] [address] Mar, [facility] [place] [facility] [address] [id number] [place] [address] Feb, [facility] [place] [facility] [address] [id number] [place] [address] Jan, [facility] [place] [facility] [address] [id number] [place] [address] Jan, [facility] [place] [facility] [address] [id number] [place] [address] Jan, [facility] [place] [facility] [address] [id number] [place] [address] Jan, [facility] [place] [facility] [address] [id number] [place] [address] Jan, [facility] [place] [facility] [address] [id number] [place] [address] Jan, [facility] [place] [facility] [address] [id number] [place] [address] Dec, [facility] [place] [facility] [address] [id number] [place] [address] Dec, [facility] [place] [facility] [address] [id number] [place] [address] Dec, [facility] [place] [facility] [address] [id number] [place] [address] Dec, [facility] [place] [facility] [address] [id number] [place] [address] Dec, [facility] [place] [facility] [address] [id number] [place] [address] Dec, [facility] [place] [facility] [address] [id number] [place] [address] Dec, [facility] [place] [facility] [address] [id number] [place] [address] Dec, [facility] [place] [facility] [address] [id number] [place] [address] Dec, [facility] [place] [facility] [address] [id number] [place] [address] Dec, [facility] [place] [facility] [address] [id number] [place] [address] Nov, [facility] [place] [facility] [address] [id number] [place] [address] Nov, [facility] [place] [facility] [address] [id number] [place] [address] October, [facility] [place] [facility] [address] [id number] [place] [address] October, [facility] [place] [facility] [address] [id number] [place] [address] October, [facility] [place] [facility] [address] [id number] [place] [address] October, [facility] [place] [facility] [address] [id number] [place] [address] October, [facility] [place] [facility] [address] [id number] [place] [address] October, [facility] [place] [facility] [address] [id number] [place] [address] October, [facility] [place] [facility] [address] [id number] [place] [address] October, [facility] [place] [facility] [address] [id number] [place] [address] October, [facility] [place] [facility] [address] [id number] [place] [address] October, [facility] [place] [facility] [address] [id number] [place] [address] October, [facility] [place] [facility] [address] [id number] [place] [address] October, [facility] [place] [facility] [address] [id number] [place] [address] October, [facility] [place] [facility] [address] [id number] [place] [address] October, [facility] [place] [facility] [address] [id number] [place] [address] October, [facility] [place] [facility] [address] [id number] [place] [address] October, [facility] [place] [facility] [address] [id number] [place] [address] Sep, [facility] [place] [facility] [address] [id number] [place] [address] Sep, [facility] [place] [facility] [address] [id number] [place] [address] Aug, [facility] [place] [facility] [address] [id number] [place] [address] Aug, [facility] [place] [facility] [address] [id number] [place] [address] Aug, [facility] [place] [facility] [address] [id number] [place] [address] Aug, [facility] [place] [facility] [address] [id number] [place] [address] Aug, [facility] [place] [facility] [address] [id number] [place] [address] Aug, [facility] [place] [facility] [address] [id number] [place] [address] Jul, [facility] [place] [facility] [address] [id number] [place] [address] Jul, [facility] [place] [facility] [address] [id number] [place] [address] Jul, [facility] [place] [facility] [address] [id number] [place] [address] Jul, [facility] [place] [facility] [address] [id number] [place] [address] Jul, [facility] [place] [facility] [address] [id number] [place] [address] Jul, [facility] [place] [facility] [address] [id number] [place] [address] Jul, [facility] [place] [facility] [address] [id number] [place] [address] Jul, [facility] [place] [facility] [address] [id number] [place] [address] Jul, [facility] [place] [facility] [address] [id number] [place] [address] Jul, [facility] [place] [facility] [address] [id number] [place] [address] Jul, [facility] [place] [facility] [address] [id number] [place] [address] Jul, [facility] [place] [facility] [address] [id number] [place] [address] Jul, [facility] [place] [facility] [address] [id number] [place] [address] Jun, [facility] [place] [facility] [address] [id number] [place] [address] Jun, [facility] [place] [facility] [address] [id number] [place] [address] Jun, [facility] [place] [facility] [address] [id number] [place] [address] Jun, [facility] [place] [facility] [address] [id number] [place] [address] Jun, [facility] [place] [facility] [address] [id number] [place] [address] Jun, [facility] [place] [facility] [address] [id number] [place] [address] Jun, [facility] [address] [id number] [place] [address] Jun, [facility] [address] [id number] [place] [address] Jun, [facility] [address] [id number] [place] [address] Jun, [facility] [address] [id number] [place] [address] Jun, [facility] [address] [id number] [place] [address] Jun, [facility] [address] [id number] [place] [address] Jun, [facility] [address] [id number] [place] [address] May, [facility] [address] [id number] [place] [address] May, [facility] [address] [id number] [place] [address] May, [facility] [address] [id number] [place] [address] May, [facility] [address] [id number] [place] [address] Apr, [facility] [address] [id number] [place] [address] Apr, [facility] [place] [facility] [address] [id number] [place] [address] Apr, [facility] [place] [facility] [address] [id number] [place] [address] 15 Apr, 2013 [facility] [address] [id number] [place] [address] 14 Apr, 2013 [facility] [place] [facility] [address] [id number] [place] [address] 14 Apr, 2013 [facility] [place] [facility] [address] [id number] [place] [address] 08 Apr, 2013 [facility] [place] [facility] [address] [id number] [place] [address] 08 Apr, 2013 [facility] [place] [facility] [address] [id number] [place] [address] 07 Apr, 2013 [facility] [place] [facility] [address] [id number] [place] [address] 07 Apr, 2013 [facility] [place] [facility] [address] [id number] [place] [address] 07 Apr, 2013 [facility] [place] [facility] [address] [id number] [place] [address] Apr, [facility] [place] [facility] [address] [id number], [place] [address] 06 Apr, 2013 [facility] [place] [facility] [address] [id number] [place] [address] Apr, [facility] [place] [facility] [address] [id number], [place] [address] Apr, [facility] [place] [facility] [address] [id number], [place] [address] Apr, [facility] [place] [facility] [address] [id number], [place] [address] 30 Mar, 2013 [facility] [place] [facility] [address] [id number], [place] [address] 30 Mar, 2013 [facility] [place] [facility] [address] [id number], [place] [address] 16 Mar, 2013 [facility] [place] [facility] [address] [id number], [place] [address] 16 Mar, 2013 [facility] [place] [facility] [address] [id number], [place] [address] 14 Mar, 2013 [facility] [place] [facility] [address] [id number] [place] [address] 14 Mar, 2013 [facility] [place] [facility] [address] [id number] [place] [address] 10 Mar, 2013 [facility] [place] [facility] [address] [id number] [place] [address] 08 Mar, 2013 [facility] [place] [facility] [address] [id number] [place] [address] 07 Mar, 2013 [facility] [place] [facility] [address] [id number] [place] [address] 26 Feb, 2013 [facility] [place] [facility] [address] [id number] [place] [address] 18 Feb, 2013 [facility] [place] [facility] [address] [id number] [place] [address] 10 Feb, 2013 [facility] [place] [facility] [address] [id number] [place] [address] 09 Feb, 2013 [facility] [place] [facility] [address] [id number] [place] [address] 30 Jan, 2013 [facility] [place] [facility] [address] [id number] [place] [address] Jan, [facility] [place] [facility] [address] [id number] [place] [address] Jan, [facility] [place] [facility] [address] [id number] [place] [address] Jan, [facility] [place] [facility] [address] [id number] [place] [address] Jan, [facility] [place] [facility] [address] [id number] [place] [address] Dec, [facility] [place] [facility] [address] [id number] [place] [address] Dec, [facility] [place] [facility] [address] [id number] [place] [address] Jul, [facility] [place] [facility] [address] [id number] [place] [address] Jul, [facility] [place] [facility] [address] [id number] [place] [address] Jul, [facility] [place] [facility] [address] [id number] [place] [address] Jun, [facility] [place] [facility] [address] [id number] [place] [address] Jun, [facility] [place] [facility] [address] [id number] [place] [address] Apr, [facility] [place] [facility] [address] [id number] [place] [address] Apr, [facility] [place] [facility] [address] [id number] [place] [address] Apr, [facility] [place] [facility] [address] [id number] [place] [address] Apr, [facility] [place] [facility] [address] [id number] [place] [address] Apr, [facility] [place] [facility] [address] [id number] [place] [address] Apr, [facility] [place] [facility] [address] [id number] [place] [address] Apr, [facility] [place] [facility] [address] [id number] [place] [address] Apr, [facility] [place] [facility] [address] [id number] [place] [address] Apr, [facility] [place] [facility] [address] [id number] [place] [address] Mar, [facility] [place] [facility] [address] [id number] [place] [address] Mar, [facility] [address] [address] Mar, [facility] [address] [facility] [id number] [address] Mar, [facility] [address] [place] [address] Mar, [facility] [address] [place] [address] Mar, [facility] [address] [place] [address] Feb, [facility] [id number] [place] [address] Feb, [facility] [address], [place] [address] Feb, [facility] [address] [place] [address] Feb, [facility] [address] [place] [address] Feb, [facility] [address] [place] [address] Feb, [facility] [address] [place] [address] Feb, IMMUNIZATIONS No Known Immunizations SOCIAL HISTORY Never Assessed REASON FOR VISIT EMR-[facility] [place] PLAN OF CARE VITAL SIGNS MEDICATIONS Unknown Medications RESULTS No Results PROCEDURES No Known procedures INSTRUCTIONS MEDICATIONS ADMINISTERED No Known Medications MEDICAL (GENERAL) HISTORY Type Description Date Hospitalization History [facility]- Left leg redness 04/26/2017
--- OUTSIDE RECORDS SUMMARY | 2019-01-03 12:50 | XMS REPORT ---
Author Author Migration, Doctor Organization [facility] Address Unknown Phone Unavailable Care Team Providers Care Material Requirements Worker Name Role Phone Migration, Doctor Unavailable Unavailable PROBLEMS Type Condition ICD9-CM Code IEL55-OP Code Onset Dates Condition Status SNOMED Code Problem Difficulty in walking, not elsewhere classified R26.2 Active 895107780 Problem Muscle weakness (generalized) M62.81 Active 63853155 Problem Age-related osteoporosis without current pathological fracture M81.0 Active 79205677 Problem Other hereditary and idiopathic neuropathies G60.8 Active 102093030 Problem Other chronic pain G89.29 Active 59848362 Problem Essential (primary) hypertension I10 Active 81562548 Problem Morbid (severe) obesity due to excess calories E66.01 Active 621484875 Problem Benign prostatic hyperplasia with lower urinary tract symptoms, symptom details unspecified N40.1 Active 671302734 Problem Right foot drop M21.371 Active [id number] Problem Type 2 diabetes mellitus without complication, without long-term current use of insulin E11.9 Active 602938034 Problem Type 2 diabetes mellitus with diabetic neuropathy, unspecified E11.40 Active 33505361 Problem 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 Active 337223323 Problem Type 2 diabetes mellitus with hyperglycemia E11.65 Active 40092897 Problem Allergic rhinitis, unspecified seasonality, unspecified trigger J30.9 Active 68131969 Problem Hyperlipidemia, unspecified hyperlipidemia type E78.5 Active 68993205 Problem Insomnia, unspecified type G47.00 Active 660585820 Problem Constipation, unspecified constipation type K59.00 Active 93152835 Problem [facility] current use of insulin Z79.4 Active 541115240 ALLERGIES No Information ENCOUNTERS Encounter Location Date Diagnosis [facility] [address] [id number] Sep, [facility] [address] [facility] [id number], [place] [address] Aug, [facility] [address] [facility] [id number], [place] [address] Aug, Urinary tract infection without hematuria, site unspecified N39.0 [facility] [address] [id number] Aug, Left leg swelling M79.89 [facility] [address] [address] Jul, [facility] [id number] [place] [address] Jul, scientist current use of insulin Z79.4 and Type 2 diabetes mellitus with hyperglycemia E11.65 [place] [id number] [place] [address] Jun, [facility] [address] [id number] Jun, Left elbow pain M25.522 [facility] [address] [place] [id number] Jun, Abrasion foot/toe S90.819A and Type 2 diabetes mellitus with diabetic neuropathy, unspecified E11.40 [facility] [address] [id number] Apr, Cellulitis of toe of left foot L03.032 [place] [id number] [place] [address] Mar, Extremity cyanosis R23.0 [facility] [address] [id number] Feb, Type 2 diabetes mellitus with diabetic neuropathy, unspecified E11.40 ; [facility] current use of insulin Z79.4 and Abrasion foot/toe S90.819A [place] [address], [place] [address] Feb, [facility] [address] [place] [id number] [place] [address] Jun, [facility] [address], [place] [address] Sep, [facility] [id number] [place] [address] Feb, [facility] [address] [facility] [id number], [place] [address] Dec, [facility] [address], [place] [address] Nov, [facility] [address], [place] [address] Nov, [facility] [address] [place] [id number] October, Diabetes 250.00 [facility] [address] [id number], [place] [address] October, [facility] [address], [place] [address] Sep, [facility] [address], [place] [address] Sep, [facility] [address], [place] [address] Jul, [facility] [address] [id number], [place] [address] Jul, [facility] [address], [place] [address] Jul, [facility] [address] [place] [id number] Jul, [facility] [address], [place] [address] Jul, [facility] [address] [id number], [place] [address] Jul, [facility] [address] [id number] Jul, [facility] [address] [id number], [place] [address] Jun, [facility] [address], [place] [address] Jun, [facility] [address] [facility] [id number] Jun, [facility] [address] [id number] [place] [address] Jun, [facility] [address] [id number] [place] [address] Jun, [facility] [address] [id number] [place] [address] Jun, [facility] [address] [id number] [place] [address] Jun, [facility] [address] [id number] [place] [address] Jun, [facility] [address] [id number] [place] [address] Jun, [facility] [place] [facility] [address] [id number] [place] [address] Jun, [facility] [address] [id number] [place] [address] May, [facility] [place] [facility] [address] [id number] [place] [address] May, [facility] [place] [facility] [address] [id number] [place] [address] May, [facility] [place] [facility] [address] [id number], [place] [address] May, [facility] [place] [facility] [address] [id number] [place] [address] May, [facility] [place] [facility] [address] [id number] [place] [address] Apr, [facility] [place] [facility] [address] [id number] [place] [address] Apr, [facility] [place] [facility] [address] [id number] [place] [address] 08 Apr, 2014 [facility] [place] [facility] [address] [id number] [place] [address] Mar, 2013 [facility] [place] [facility] [address] [id number] [place] [address] Mar, [facility] [place] [facility] [address] [id number] [place] [address] Mar, [facility] [place] [facility] [address] [id number] [place] [address] Mar, [facility] [place] [facility] [address] [id number] [place] [address] Mar, [facility] [place] [facility] [address] [id number] [place] [address] Mar, [facility] [place] [facility] [address] [id number] [place] [address] Mar, [facility] [place] [facility] [address] [id number] [place] [address] Mar, [facility] [place] [facility] [address] [id number] [place] [address] Mar, [facility] [place] [facility] [address] [id number] [place] [address] Mar, [facility] [place] [facility] [address] [id number] [place] [address] Mar, [facility] [place] [facility] [address] [id number] [place] [address] Mar, [facility] [place] [facility] [address] [id number] [place] [address] Mar, [facility] [place] [facility] [address] [id number] [place] [address] Mar, [facility] [place] [facility] [address] [id number] [place] [address] Feb, [facility] [place] [facility] [address] [id number] [place] [address] Jan, [facility] [place] [facility] [address] [id number] [place] [address] Jan, [facility] [place] [facility] [address] [id number] [place] [address] Jan, [facility] [place] [facility] [address] [id number] [place] [address] Jan, [facility] [place] [facility] [address] [id number] [place] [address] Jan, [facility] [place] [facility] [address] [id number] [place] [address] Jan, [facility] [place] [facility] [address] [id number] [place] [address] Dec, [facility] [place] [facility] [address] [id number] [place] [address] Dec, [facility] [place] [facility] [address] [id number] [place] [address] Dec, [facility] [place] [facility] [address] [id number] [place] [address] Dec, [facility] [place] [facility] [address] [id number] [place] [address] Dec, [facility] [place] [facility] [address] [id number] [place] [address] Dec, [facility] [place] [facility] [address] [id number] [place] [address] Dec, [facility] [place] [facility] [address] [id number] [place] [address] Dec, [facility] [place] [facility] [address] [id number] [place] [address] Dec, [facility] [place] [facility] [address] [id number] [place] [address] Dec, [facility] [place] [facility] [address] [id number] [place] [address] Nov, [facility] [place] [facility] [address] [id number] [place] [address] Nov, [facility] [place] [facility] [address] [id number] [place] [address] October, [facility] [place] [facility] [address] [id number] [place] [address] October, [facility] [place] [facility] [address] [id number] [place] [address] October, [facility] [place] [facility] [address] [id number] [place] [address] October, [facility] [place] [facility] [address] [id number] [place] [address] October, [facility] [place] [facility] [address] [id number] [place] [address] October, [facility] [place] [facility] [address] [id number] [place] [address] October, [facility] [place] [facility] [address] [id number] [place] [address] October, [facility] [place] [facility] [address] [id number] [place] [address] October, [facility] [place] [facility] [address] [id number] [place] [address] October, [facility] [place] [facility] [address] [id number] [place] [address] October, [facility] [place] [facility] [address] [id number] [place] [address] October, [facility] [place] [facility] [address] [id number] [place] [address] October, [facility] [place] [facility] [address] [id number] [place] [address] October, [facility] [place] [facility] [address] [id number] [place] [address] October, [facility] [place] [facility] [address] [id number] [place] [address] October, [facility] [place] [facility] [address] [id number] [place] [address] Sep, [facility] [place] [facility] [address] [id number] [place] [address] Sep, [facility] [place] [facility] [address] [id number] [place] [address] Aug, [facility] [place] [facility] [address] [id number] [place] [address] Aug, [facility] [place] [facility] [address] [id number] [place] [address] Aug, [facility] [place] [facility] [address] [id number] [place] [address] Aug, [facility] [place] [facility] [address] [id number] [place] [address] Aug, [facility] [place] [facility] [address] [id number] [place] [address] Aug, [facility] [place] [facility] [address] [id number] [place] [address] Jul, [facility] [place] [facility] [address] [id number] [place] [address] Jul, [facility] [place] [facility] [address] [id number] [place] [address] Jul, [facility] [place] [facility] [address] [id number] [place] [address] Jul, [facility] [place] [facility] [address] [id number] [place] [address] Jul, [facility] [place] [facility] [address] [id number] [place] [address] Jul, [facility] [place] [facility] [address] [id number] [place] [address] Jul, [facility] [place] [facility] [address] [facility] [id number] [place] [address] Jul, [facility] [place] [facility] [address] [id number] [place] [address] Jul, [facility] [place] [facility] [address] [id number] [place] [address] Jul, [facility] [place] [facility] [address] [facility] [id number] [place] [address] Jul, [facility] [place] [facility] [address] [facility] [id number] [place] [address] Jul, [facility] [place] [facility] [address] [facility] [id number] [place] [address] Jul, [facility] [place] [facility] [address] [facility] [id number] [place] [address] Jun, [facility] [place] [facility] [address] [facility] [id number] [place] [address] Jun, [facility] [place] [facility] [address] [facility] [id number] [place] [address] Jun, [facility] [place] [facility] [address] [facility] [id number] [place] [address] Jun, [facility] [place] [facility] [address] [id number] [place] [address] Jun, [facility] [place] [facility] [address] [facility] [id number] [place] [address] Jun, [facility] [place] [facility] [address] [facility] [id number], [place] [address] Jun, [facility] [place] [facility] [address] [id number] [place] [address] Jun, [facility] [address] [id number] [place] [address] Jun, [facility] [place] [facility] [address] [id number] [place] [address] Jun, [facility] [place] [facility] [address] [id number] [place] [address] Jun, [facility] [place] [facility] [address] [id number] [place] [address] Jun, [facility] [place] [facility] [address] [id number] [place] [address] Jun, [facility] [place] [facility] [address] [id number] [place] [address] May, [facility] [place] [facility] [address] [id number] [place] [address] May, [facility] [place] [facility] [address] [id number] [place] [address] May, [facility] [place] [facility] [address] [id number] [place] [address] May, [facility] [place] [facility] [address] [id number] [place] [address] Apr, [facility] [place] [facility] [address] [id number] [place] [address] Apr, [facility] [place] [facility] [address] [id number] [place] [address] Apr, [facility] [place] [facility] [address] [id number] [place] [address] Apr, [facility] [place] [facility] [address] [id number] [place] [address] 14 Apr, 2013 [facility] [place] [facility] [address] [id number] [place] [address] 14 Apr, 2013 [facility] [place] [facility] [address] [id number] [place] [address] 08 Apr, 2013 [facility] [place] [facility] [address] [id number], [place] [address] 08 Apr, 2013 [facility] [place] [facility] [address] [facility] [id number] [place] [address] 07 Apr, 2013 [facility] [place] [facility] [address] [id number], [place] [address] 07 Apr, 2013 [facility] [place] [facility] [address] [id number] [place] [address] Apr, [facility] [place] [facility] [address] [id number], [place] [address] Apr, [facility] [place] [facility] [address] [id number], [place] [address] Apr, [facility] [place] [facility] [address] [id number], [place] [address] Apr, [facility] [place] [facility] [address] [id number], [place] [address] Apr, [facility] [place] [facility] [address] [id number], [place] [address] Apr, [facility] [place] [facility] [address] [id number], [place] [address] 30 Mar, 2013 [facility] [place] [facility] [address] [id number], [place] [address] 30 Mar, 2013 [facility] [place] [facility] [address] [id number], [place] [address] 16 Mar, 2013 [facility] [place] [facility] [address] [id number], [place] [address] 16 Mar, 2012 [facility] [place] [facility] [address] [id number], [place] [address] 14 Mar, 2013 [facility] [place] [facility] [address] [id number] [place] [address] 14 Mar, 2013 [facility] [address] [id number] [place] [address] 10 Mar, 2013 [facility] [place] [facility] [address] [id number] [place] [address] 08 Mar, 2013 [facility] [address] [id number] [place] [address] 07 Mar, 2013 [facility] [place] [facility] [address] [id number] [place] [address] 26 Feb, 2013 [facility] [place] [facility] [address] [id number] [place] [address] 18 Feb, 2013 [facility] [place] [facility] [address] [id number] [place] [address] 10 Feb, 2013 [facility] [address] [id number] [place] [address] 09 Feb, 2013 [facility] [address] [id number] [place] [address] 30 Jan, 2013 [facility] [place] [facility] [address] [id number] [place] [address] Jan, [facility] [address] [id number] [place] [address] Jan, [facility] [place] [facility] [address] [id number] [place] [address] Jan, [facility] [place] [facility] [address] [id number] [place] [address] Jan, [facility] [place] [facility] [address] [id number] [place] [address] Dec, [facility] [place] [facility] [address] [id number] [place] [address] Dec, [facility] [place] [facility] [address] [id number] [place] [address] Jul, [facility] [place] [facility] [address] [id number] [place] [address] Jul, [facility] [place] [facility] [address] [id number] [place] [address] Jul, [facility] [place] [facility] [address] [id number] [place] [address] Jun, [facility] [place] [facility] [address] [id number] [place] [address] Jun, [facility] [place] [facility] [address] [id number] [place] [address] Apr, [facility] [place] [facility] [address] [id number] [place] [address] Apr, [facility] [place] [facility] [address] [id number] [place] [address] Apr, [facility] [place] [facility] [address] [id number] [place] [address] Apr, [facility] [place] [facility] [address] [id number] [place] [address] Apr, [facility] [place] [facility] [address] [id number] [place] [address] Apr, [facility] [place] [facility] [address] [id number] [place] [address] Apr, [facility] [place] [facility] [address] [id number], [place] [address] Apr, [facility] [place] [facility] [address] [id number] [place] [address] Apr, [facility] [place] [facility] [address] [id number] [place] [address] Mar, [facility] [place] [facility] [address] [id number] [place] [address] Mar, [facility] [place] [facility] [address] [id number], [place] [address] Mar, [facility] [address] [facility] [id number], [place] [address] Mar, [facility] [address] [facility] [id number], [place] [address] Mar, [facility] [id number] [address] Mar, [facility] [id number], [place] [address] Feb, [facility] [id number], [place] [address] Feb, [facility] [address] [facility] [id number], [place] [address] Feb, [facility] [id number], [place] [address] Feb, [facility] [id number], [place] [address] Feb, [facility] [id number], [place] [address] Feb, [facility] [address] [id number], [place] [address] Feb, IMMUNIZATIONS No Known Immunizations SOCIAL HISTORY Never Assessed REASON FOR VISIT EMR-[facility] [place] PLAN OF CARE VITAL SIGNS MEDICATIONS Unknown Medications RESULTS No Results PROCEDURES No Known procedures INSTRUCTIONS MEDICATIONS ADMINISTERED No Known Medications MEDICAL (GENERAL) HISTORY Type Description Date Hospitalization History [facility] [place]- Left leg redness 04/26/2017
--- OUTSIDE RECORDS SUMMARY | 2019-01-03 12:50 | XMS REPORT ---
Author Author Migration, Doctor Organization [facility] Address Unknown Phone Unavailable Care Team Providers Care Provider Scribe Name Role Phone Migration, Doctor Unavailable Unavailable PROBLEMS Type Condition ICD9-CM Code KBP90-HZ Code Onset Dates Condition Status SNOMED Code Problem Difficulty in walking, not elsewhere classified R26.2 Active 834734444 Problem Muscle weakness (generalized) M62.81 Active 80872141 Problem Age-related osteoporosis without current pathological fracture M81.0 Active 71068876 Problem Other hereditary and idiopathic neuropathies G60.8 Active 602897199 Problem Other chronic pain G89.29 Active 51638446 Problem Essential (primary) hypertension I10 Active 17200508 Problem Morbid (severe) obesity due to excess calories E66.01 Active 425826976 Problem Benign prostatic hyperplasia with lower urinary tract symptoms, symptom details unspecified N40.1 Active 859771317 Problem Right foot drop M21.371 Active [id number] Problem Type 2 diabetes mellitus without complication, without long-term current use of insulin E11.9 Active 100652419 Problem Type 2 diabetes mellitus with diabetic neuropathy, unspecified E11.40 Active 25472317 Problem 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 Active 193162864 Problem Type 2 diabetes mellitus with hyperglycemia E11.65 Active 45727717 Problem Allergic rhinitis, unspecified seasonality, unspecified trigger J30.9 Active 64963777 Problem Hyperlipidemia, unspecified hyperlipidemia type E78.5 Active 95624952 Problem Insomnia, unspecified type G47.00 Active 867898939 Problem Constipation, unspecified constipation type K59.00 Active 52234593 Problem prison current use of insulin Z79.4 Active 494264888 ALLERGIES No Information ENCOUNTERS Encounter Location Date Diagnosis [facility] [address], [place] [id number] Sep, Type 2 diabetes mellitus with diabetic neuropathy, unspecified E11.40 and technician terminal and repeater current use of insulin Z79.4 [facility] [address] [facility] [id number] [place] [address] Aug, [place] [address] [address] Aug, Urinary tract infection without hematuria, site unspecified N39.0 [facility] [address] [id number] Aug, Left leg swelling M79.89 [place] [address] [place] [id number] [place] [address] Jul, [place] [address] [place] [id number] [place] [address] Jul, prison current use of insulin Z79.4 and Type 2 diabetes mellitus with hyperglycemia E11.65 [place] [address] [place] [id number] [place] [address] Jun, [facility] [address] [place] [id number] Jun, Left elbow pain M25.522 [facility] [address] [place] [id number] Jun, Abrasion foot/toe S90.819A and Type 2 diabetes mellitus with diabetic neuropathy, unspecified E11.40 [facility] [address] [place] [id number] Apr, Cellulitis of toe of left foot L03.032 [place] [id number] [place] [address] Mar, Extremity cyanosis R23.0 [facility] [address] [place] [id number] Feb, Type 2 diabetes mellitus with diabetic neuropathy, unspecified E11.40 ; prison current use of insulin Z79.4 and Abrasion foot/toe S90.819A [place] [id number] [place] [address] Feb, [place] [address] [place] [id number] [place] [address] Jun, [place] [address] [place] [id number] [place] [address] Sep, [facility] [address] [id number] [address] Feb, [facility] [address] [address] Dec, [facility] [address] [place] [id number] [address] Nov, [facility] [address] [address] Nov, [facility] [address] [place] [id number] October, Diabetes 250.00 [facility] [address] [place] [address] October, [facility] [address] [address] Sep, [facility] [address] [address] Sep, [facility] [address] [address] Jul, [facility] [address] [address] Jul, [facility] [address] [place] [id number] [address] Jul, [facility] [address] [place] [id number] Jul, [facility] [address] [place] [id number] [address] Jul, [facility] [address] [place] [id number] [address] Jul, [facility] [address] [place] [id number] Jul, [facility] [address] [place] [id number] [address] Jun, [facility] [address] [id number] [place] [address] Jun, [facility] [address] [facility] [id number] Jun, [facility] [address] [id number] [place] [address] Jun, [facility] [address] [id number] [place] [address] Jun, [facility] [address] [id number] [place] [address] Jun, [facility] [address] [id number] [place] [address] Jun, [facility] [address] [id number] [place] [address] Jun, [facility] [address] [id number] [place] [address] Jun, [facility] [address] [id number] [place] [address] Jun, [facility] [address] [id number] [place] [address] May, [facility] [address] [id number] [place] [address] May, [facility] [place] [facility] [address] [id number] [place] [address] May, [facility] [place] [facility] [address] [id number] [place] [address] May, [facility] [place] [facility] [address] [id number] [place] [address] May, [facility] [address] [id number] [place] [address] Apr, [facility] [place] [facility] [address] [id number] [address] Apr, [facility] [place] [facility] [address] [id number] [place] [address] Apr, [facility] [place] [facility] [address] [id number] [place] [address] Mar, [facility] [place] [facility] [address] [id number] [place] [address] Mar, [facility] [place] [facility] [address] [id number] [place] [address] Mar, [facility] [place] [facility] [address] [id number] [place] [address] Mar, [facility] [place] [facility] [address] [id number] [place] [address] Mar, [facility] [place] [facility] [address] [id number] [place] [address] Mar, [facility] [place] [facility] [address] [id number] [place] [address] Mar, [facility] [place] [facility] [address] [id number] [place] [address] Mar, [facility] [place] [facility] [address] [id number] [place] [address] Mar, [facility] [place] [facility] [address] [id number] [address] Mar, [facility] [place] [facility] [address] [id number] [place] [address] Mar, [facility] [place] [facility] [address] [id number] [place] [address] Mar, [facility] [place] [facility] [address] [id number] [address] Mar, [facility] [place] [facility] [address] [id number] [place] [address] Mar, [facility] [place] [facility] [address] [id number] [place] [address] Feb, [facility] [place] [facility] [address] [id number] [place] [address] Jan, [facility] [place] [facility] [address] [id number] [place] [address] Jan, [facility] [place] [facility] [address] [id number] [place] [address] Jan, [facility] [place] [facility] [address] [id number] [place] [address] Jan, [facility] [place] [facility] [address] [id number] [place] [address] Jan, [facility] [place] [facility] [address] [id number] [place] [address] Jan, [facility] [place] [facility] [address] [id number] [place] [address] Dec, [facility] [place] [facility] [address] [id number] [place] [address] Dec, [facility] [place] [facility] [address] [id number] [place] [address] Dec, [facility] [place] [facility] [address] [id number] [place] [address] Dec, [facility] [place] [facility] [address] [id number] [place] [address] Dec, [facility] [place] [facility] [address] [id number] [place] [address] Dec, [facility] [place] [facility] [address] [id number] [place] [address] Dec, [facility] [place] [facility] [address] [id number] [place] [address] Dec, [facility] [place] [facility] [address] [id number] [place] [address] Dec, [facility] [place] [facility] [address] [id number] [place] [address] Dec, [facility] [place] [facility] [address] [id number] [place] [address] Nov, [facility] [place] [facility] [address] [id number] [place] [address] Nov, [facility] [place] [facility] [address] [id number] [place] [address] October, [facility] [place] [facility] [address] [id number] [place] [address] October, [facility] [place] [facility] [address] [id number] [place] [address] October, [facility] [place] [facility] [address] [id number] [place] [address] October, [facility] [place] [facility] [address] [id number] [place] [address] October, [facility] [place] [facility] [address] [id number] [place] [address] October, [facility] [place] [facility] [address] [id number] [place] [address] October, [facility] [place] [facility] [address] [id number] [place] [address] October, [facility] [place] [facility] [address] [id number] [place] [address] October, [facility] [place] [facility] [address] [id number] [place] [address] October, [facility] [place] [facility] [address] [id number] [place] [address] October, [facility] [place] [facility] [address] [id number] [place] [address] October, [facility] [place] [facility] [address] [id number] [place] [address] October, [facility] [place] [facility] [address] [id number] [place] [address] October, [facility] [place] [facility] [address] [id number] [place] [address] October, [facility] [place] [facility] [address] [id number] [place] [address] October, [facility] [place] [facility] [address] [id number] [place] [address] Sep, [facility] [place] [facility] [address] [id number] [place] [address] Sep, [facility] [place] [facility] [address] [id number] [place] [address] Aug, [facility] [place] [facility] [address] [id number] [place] [address] Aug, [facility] [place] [facility] [address] [id number] [place] [address] Aug, [facility] [place] [facility] [address] [id number] [place] [address] Aug, [facility] [place] [facility] [address] [id number] [place] [address] Aug, [facility] [place] [facility] [address] [id number] [place] [address] Aug, [facility] [place] [facility] [address] [id number] [place] [address] Jul, [facility] [place] [facility] [address] [id number] [place] [address] Jul, [facility] [place] [facility] [address] [id number] [place] [address] Jul, [facility] [place] [facility] [address] [id number] [place] [address] Jul, [facility] [place] [facility] [address] [id number] [place] [address] Jul, [facility] [place] [facility] [address] [id number] [place] [address] Jul, [facility] [place] [facility] [address] [id number] [place] [address] Jul, [facility] [place] [facility] [address] [id number] [place] [address] Jul, [facility] [place] [facility] [address] [id number] [place] [address] Jul, [facility] [place] [facility] [address] [id number] [place] [address] Jul, [facility] [place] [facility] [address] [id number] [place] [address] Jul, [facility] [place] [facility] [address] [id number] [place] [address] Jul, [facility] [place] [facility] [address] [id number] [place] [address] Jul, [facility] [place] [facility] [address] [id number] [place] [address] Jun, [facility] [place] [facility] [address] [id number] [place] [address] Jun, [facility] [place] [facility] [address] [id number] [place] [address] Jun, [facility] [place] [facility] [address] [id number] [place] [address] Jun, [facility] [place] [facility] [address] [id number] [place] [address] Jun, [facility] [place] [facility] [address] [id number] [place] [address] Jun, [facility] [place] [facility] [address] [id number] [place] [address] Jun, [facility] [address] [id number] [place] [address] Jun, [facility] [address] [id number] [place] [address] Jun, [facility] [address] [id number] [place] [address] Jun, [facility] [address] [id number] [place] [address] Jun, [facility] [address] [id number] [place] [address] Jun, [facility] [address] [id number] [place] [address] Jun, [facility] [address] [id number] [place] [address] May, [facility] [address] [id number] [place] [address] May, [facility] [address] [id number] [place] [address] May, [facility] [address] [id number] [place] [address] May, [facility] [address] [id number] [place] [address] Apr, [facility] [address] [id number] [place] [address] Apr, [facility] [place] [facility] [address] [id number] [place] [address] Apr, [facility] [place] [facility] [address] [id number] [place] [address] 15 Apr, 2013 [facility] [address] [id number] [place] [address] 14 Apr, 2013 [facility] [place] [facility] [address] [id number] [place] [address] 14 Apr, 2013 [facility] [place] [facility] [address] [id number] [place] [address] 08 Apr, 2013 [facility] [place] [facility] [address] [id number] [place] [address] 08 Apr, 2013 [facility] [place] [facility] [address] [id number] [place] [address] 07 Apr, 2013 [facility] [place] [facility] [address] [id number] [place] [address] 07 Apr, 2013 [facility] [place] [facility] [address] [id number] [place] [address] 07 Apr, 2013 [facility] [place] [facility] [address] [id number] [place] [address] Apr, [facility] [place] [facility] [address] [id number] [address] 06 Apr, 2013 [facility] [place] [facility] [address] [id number] [place] [address] Apr, [facility] [place] [facility] [address] [id number] [address] Apr, [facility] [place] [facility] [address] [id number] [place] [address] Apr, [facility] [place] [facility] [address] [id number] [place] [address] 30 Mar, 2013 [facility] [place] [facility] [address] [id number] [place] [address] 30 Mar, 2013 [facility] [place] [facility] [address] [id number] [place] [address] 16 Mar, 2013 [facility] [place] [facility] [address] [id number] [place] [address] 16 Mar, 2013 [facility] [place] [facility] [address] [id number] [place] [address] 14 Mar, 2013 [facility] [place] [facility] [address] [id number] [place] [address] 14 Mar, 2013 [facility] [place] [facility] [address] [id number] [place] [address] 10 Mar, 2013 [facility] [place] [facility] [address] [id number] [place] [address] 08 Mar, 2013 [facility] [place] [facility] [address] [id number] [place] [address] 07 Mar, 2013 [facility] [place] [facility] [address] [id number] [place] [address] 26 Feb, 2013 [facility] [place] [facility] [address] [id number] [place] [address] 18 Feb, 2013 [facility] [place] [facility] [address] [id number] [place] [address] 10 Feb, 2013 [facility] [place] [facility] [address] [id number] [place] [address] 09 Feb, 2013 [facility] [place] [facility] [address] [id number] [place] [address] 30 Jan, 2013 [facility] [place] [facility] [address] [id number] [place] [address] Jan, [facility] [place] [facility] [address] [id number] [place] [address] Jan, [facility] [place] [facility] [address] [id number] [place] [address] Jan, [facility] [place] [facility] [address] [id number] [place] [address] Jan, [facility] [place] [facility] [address] [id number] [place] [address] Dec, [facility] [place] [facility] [address] [id number] [place] [address] Dec, [facility] [place] [facility] [address] [id number] [place] [address] Jul, [facility] [place] [facility] [address] [id number] [place] [address] Jul, [facility] [place] [facility] [address] [id number] [place] [address] Jul, [facility] [place] [facility] [address] [id number] [place] [address] Jun, [facility] [place] [facility] [address] [id number] [place] [address] Jun, [facility] [place] [facility] [address] [id number] [place] [address] Apr, [facility] [place] [facility] [address] [id number] [place] [address] Apr, [facility] [place] [facility] [address] [id number] [place] [address] Apr, [facility] [place] [facility] [address] [id number] [place] [address] Apr, [facility] [place] [facility] [address] [id number] [place] [address] Apr, [facility] [place] [facility] [address] [id number] [place] [address] Apr, [facility] [place] [facility] [address] [id number] [place] [address] Apr, [facility] [place] [facility] [address] [id number] [place] [address] Apr, [facility] [place] [facility] [address] [id number] [place] [address] Apr, [facility] [place] [facility] [address] [id number] [place] [address] Mar, [facility] [place] [facility] [address] [id number] [place] [address] Mar, [facility] [id number] [address] Mar, [facility] [address] [facility] [id number] [address] Mar, [facility] [id number] [address] Mar, [facility] [id number] [address] Mar, [facility] [id number] [address] Feb, [facility] [id number] [place] [address] Feb, [facility] [id number] [address] Feb, [facility] [id number] [address] Feb, [facility] [id number] [address] Feb, [facility] [id number] [address] Feb, [facility] [id number] [address] Feb, IMMUNIZATIONS No Known Immunizations SOCIAL HISTORY Never Assessed REASON FOR VISIT EMR-[facility] [place] OF CARE VITAL SIGNS MEDICATIONS Unknown Medications RESULTS No Results PROCEDURES No Known procedures INSTRUCTIONS MEDICATIONS ADMINISTERED No Known Medications MEDICAL (GENERAL) HISTORY Type Description Date Hospitalization History [facility] [place]- Left leg redness 04/26/2017
--- OUTSIDE RECORDS SUMMARY | 2019-01-03 12:51 | XMS REPORT ---
Author Author Migration, Doctor Organization [facility] Address Unknown Phone Unavailable Care Team Providers Care Tassel Snipper Name Role Phone Migration, Doctor Unavailable Unavailable PROBLEMS Type Condition ICD9-CM Code [id number] Code Onset Dates Condition Status SNOMED Code Problem Difficulty in walking, not elsewhere classified R26.2 Active 840840140 Problem Muscle weakness (generalized) M62.81 Active 51913770 Problem Age-related osteoporosis without current pathological fracture M81.0 Active 97568192 Problem Other hereditary and idiopathic neuropathies G60.8 Active 536716482 Problem Other chronic pain G89.29 Active 92921019 Problem Essential (primary) hypertension I10 Active 88327800 Problem Morbid (severe) obesity due to excess calories E66.01 Active 826384941 Problem Benign prostatic hyperplasia with lower urinary tract symptoms, symptom details unspecified N40.1 Active 768475073 Problem Right foot drop M21.371 Active [id number] Problem Type 2 diabetes mellitus without complication, without long-term current use of insulin E11.9 Active 037561266 Problem Type 2 diabetes mellitus with diabetic neuropathy, unspecified E11.40 Active 03319432 Problem 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 Active 460663000 Problem Type 2 diabetes mellitus with hyperglycemia E11.65 Active 23556295 Problem Allergic rhinitis, unspecified seasonality, unspecified trigger J30.9 Active 39802025 Problem Hyperlipidemia, unspecified hyperlipidemia type E78.5 Active 33162070 Problem Insomnia, unspecified type G47.00 Active 563710475 Problem Constipation, unspecified constipation type K59.00 Active 07230455 Problem residential current use of insulin Z79.4 Active [id number] ALLERGIES No Information ENCOUNTERS Encounter Location Date Diagnosis [facility] [address] [id number] Sep, [facility] [address] [facility] [id number], [place] [address] Aug, [facility] [address] [facility] [id number], [place] [address] Aug, Urinary tract infection without hematuria, site unspecified N39.0 [facility] [address] [id number] Aug, Left leg swelling M79.89 [facility] [address], [place] [address] Jul, [facility] [id number] [place] [address] Jul, terminal gauger current use of 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 Z79.4 and Type 2 diabetes mellitus with hyperglycemia E11.65 [place] [id number] [place] [address] Jun, [facility] [address] [id number] Jun, Left elbow pain M25.522 [facility] [address] [place] [id number] Jun, Abrasion foot/toe S90.819A and Type 2 diabetes mellitus with diabetic neuropathy, unspecified E11.40 [facility] [address] [address] Apr, Cellulitis of toe of left foot L03.032 [place] [id number] [place] [address] Mar, Extremity cyanosis R23.0 [facility] [address] [id number] Feb, Type 2 diabetes mellitus with diabetic neuropathy, unspecified E11.40 ; residential current use of insulin Z79.4 and Abrasion foot/toe S90.819A [place] [address], [place] [address] Feb, [facility] [address] [place] [id number] [place] [address] Jun, [facility] [address], [place] [address] Sep, [facility] [id number] [place] [address] Feb, [facility] [address] [facility] [id number], [place] [address] Dec, [facility] [address], [place] [address] Nov, [facility] [address], [place] [address] Nov, [facility] [address] [id number] October, Diabetes 250.00 [facility] [address] [place] [id number], [place] [address] October, [facility] [address], [place] [address] Sep, [facility] [address], [place] [address] Sep, [facility] [address], [place] [address] Jul, [facility] [address] [id number], [place] [address] Jul, [facility] [address], [place] [address] Jul, [facility] [address] [id number] Jul, [facility] [address], [place] [address] Jul, [facility] [address] [place] [id number], [place] [address] Jul, [facility] [address] [id number] Jul, [facility] [address] [id number], [place] [address] Jun, [facility] [address], [place] [address] Jun, [facility] [address] [facility] [address] Jun, [facility] [address] [id number] [place] [address] Jun, [facility] [address] [id number] [place] [address] Jun, [facility] [address] [id number] [place] [address] Jun, [facility] [address] [id number] [place] [address] Jun, [facility] [address] [id number] [place] [address] Jun, [facility] [address] [id number] [place] [address] Jun, [facility] [place] [facility] [address] [id number] [place] [address] Jun, [facility] [address] [id number] [place] [address] May, [facility] [place] [facility] [address] [id number] [place] [address] May, [facility] [place] [facility] [address] [id number] [place] [address] May, [facility] [place] [facility] [address] [id number], [place] [address] May, [facility] [place] [facility] [address] [id number] [place] [address] May, [facility] [place] [facility] [address] [id number] [place] [address] Apr, [facility] [place] [facility] [address] [id number] [place] [address] Apr, [facility] [place] [facility] [address] [id number] [place] [address] 08 Apr, 2014 [facility] [place] [facility] [address] [id number] [place] [address] Mar, 2013 [facility] [place] [facility] [address] [id number] [place] [address] Mar, [facility] [place] [facility] [address] [id number] [place] [address] Mar, [facility] [place] [facility] [address] [id number] [place] [address] Mar, [facility] [place] [facility] [address] [id number] [place] [address] Mar, [facility] [place] [facility] [address] [id number] [place] [address] Mar, [facility] [place] [facility] [address] [id number] [place] [address] Mar, [facility] [place] [facility] [address] [id number] [place] [address] Mar, [facility] [place] [facility] [address] [id number] [place] [address] Mar, [facility] [place] [facility] [address] [id number] [place] [address] Mar, [facility] [place] [facility] [address] [id number] [place] [address] Mar, [facility] [place] [facility] [address] [id number] [place] [address] Mar, [facility] [place] [facility] [address] [id number] [place] [address] Mar, [facility] [place] [facility] [address] [id number] [place] [address] Mar, [facility] [place] [facility] [address] [id number] [place] [address] Feb, [facility] [place] [facility] [address] [id number] [place] [address] Jan, [facility] [place] [facility] [address] [id number] [place] [address] Jan, [facility] [place] [facility] [address] [id number] [place] [address] Jan, [facility] [place] [facility] [address] [id number] [place] [address] Jan, [facility] [place] [facility] [address] [id number] [place] [address] Jan, [facility] [place] [facility] [address] [id number] [place] [address] Jan, [facility] [place] [facility] [address] [id number] [place] [address] Dec, [facility] [place] [facility] [address] [id number] [place] [address] Dec, [facility] [place] [facility] [address] [id number] [place] [address] Dec, [facility] [place] [facility] [address] [id number] [place] [address] Dec, [facility] [place] [facility] [address] [id number] [place] [address] Dec, [facility] [place] [facility] [address] [id number] [place] [address] Dec, [facility] [place] [facility] [address] [id number] [place] [address] Dec, [facility] [place] [facility] [address] [id number] [place] [address] Dec, [facility] [place] [facility] [address] [id number] [place] [address] Dec, [facility] [place] [facility] [address] [id number] [place] [address] Dec, [facility] [place] [facility] [address] [id number] [place] [address] Nov, [facility] [place] [facility] [address] [id number] [place] [address] Nov, [facility] [place] [facility] [address] [id number] [place] [address] October, [facility] [place] [facility] [address] [id number] [place] [address] October, [facility] [place] [facility] [address] [id number] [place] [address] October, [facility] [place] [facility] [address] [id number] [place] [address] October, [facility] [place] [facility] [address] [id number] [place] [address] October, [facility] [place] [facility] [address] [id number] [place] [address] October, [facility] [place] [facility] [address] [id number] [place] [address] October, [facility] [place] [facility] [address] [id number] [place] [address] October, [facility] [place] [facility] [address] [id number] [place] [address] October, [facility] [place] [facility] [address] [id number] [place] [address] October, [facility] [place] [facility] [address] [id number] [place] [address] October, [facility] [place] [facility] [address] [id number] [place] [address] October, [facility] [place] [facility] [address] [id number] [place] [address] October, [facility] [place] [facility] [address] [id number] [place] [address] October, [facility] [place] [facility] [address] [id number] [place] [address] October, [facility] [place] [facility] [address] [id number] [place] [address] October, [facility] [place] [facility] [address] [id number] [place] [address] Sep, [facility] [place] [facility] [address] [id number] [place] [address] Sep, [facility] [place] [facility] [address] [id number] [place] [address] Aug, [facility] [place] [facility] [address] [id number] [place] [address] Aug, [facility] [place] [facility] [address] [id number] [place] [address] Aug, [facility] [place] [facility] [address] [id number] [place] [address] Aug, [facility] [place] [facility] [address] [id number] [place] [address] Aug, [facility] [place] [facility] [address] [id number] [place] [address] Aug, [facility] [place] [facility] [address] [id number] [place] [address] Jul, [facility] [place] [facility] [address] [id number] [place] [address] Jul, [facility] [place] [facility] [address] [id number] [place] [address] Jul, [facility] [place] [facility] [address] [id number] [place] [address] Jul, [facility] [place] [facility] [address] [id number] [place] [address] Jul, [facility] [place] [facility] [address] [id number] [place] [address] Jul, [facility] [place] [facility] [address] [id number] [place] [address] Jul, [facility] [place] [facility] [address] [facility] [id number] [place] [address] Jul, [facility] [place] [facility] [address] [id number] [place] [address] Jul, [facility] [place] [facility] [address] [id number] [place] [address] Jul, [facility] [place] [facility] [address] [facility] [id number] [place] [address] Jul, [facility] [place] [facility] [address] [facility] [id number] [place] [address] Jul, [facility] [place] [facility] [address] [facility] [id number] [place] [address] Jul, [facility] [place] [facility] [address] [facility] [id number] [place] [address] Jun, [facility] [place] [facility] [address] [facility] [id number] [place] [address] Jun, [facility] [place] [facility] [address] [facility] [id number] [place] [address] Jun, [facility] [place] [facility] [address] [facility] [id number] [place] [address] Jun, [facility] [place] [facility] [address] [id number] [place] [address] Jun, [facility] [place] [facility] [address] [facility] [id number] [place] [address] Jun, [facility] [place] [facility] [address] [facility] [id number], [place] [address] Jun, [facility] [place] [facility] [address] [id number] [place] [address] Jun, [facility] [address] [id number] [place] [address] Jun, [facility] [place] [facility] [address] [id number] [place] [address] Jun, [facility] [place] [facility] [address] [id number] [place] [address] Jun, [facility] [place] [facility] [address] [id number] [place] [address] Jun, [facility] [place] [facility] [address] [id number] [place] [address] Jun, [facility] [place] [facility] [address] [id number] [place] [address] May, [facility] [place] [facility] [address] [id number] [place] [address] May, [facility] [place] [facility] [address] [id number] [place] [address] May, [facility] [place] [facility] [address] [id number] [place] [address] May, [facility] [place] [facility] [address] [id number] [place] [address] Apr, [facility] [place] [facility] [address] [id number] [place] [address] Apr, [facility] [place] [facility] [address] [id number] [place] [address] Apr, [facility] [place] [facility] [address] [id number] [place] [address] Apr, [facility] [place] [facility] [address] [id number] [place] [address] 14 Apr, 2013 [facility] [place] [facility] [address] [id number] [place] [address] 14 Apr, 2013 [facility] [place] [facility] [address] [id number] [place] [address] 08 Apr, 2013 [facility] [place] [facility] [address] [id number], [place] [address] 08 Apr, 2013 [facility] [place] [facility] [address] [facility] [id number] [place] [address] 07 Apr, 2013 [facility] [place] [facility] [address] [id number], [place] [address] 07 Apr, 2013 [facility] [place] [facility] [address] [id number] [place] [address] Apr, [facility] [place] [facility] [address] [id number], [place] [address] Apr, [facility] [place] [facility] [address] [id number], [place] [address] Apr, [facility] [place] [facility] [address] [id number], [place] [address] Apr, [facility] [place] [facility] [address] [id number], [place] [address] Apr, [facility] [place] [facility] [address] [id number], [place] [address] Apr, [facility] [place] [facility] [address] [id number], [place] [address] 30 Mar, 2013 [facility] [place] [facility] [address] [id number], [place] [address] 30 Mar, 2013 [facility] [place] [facility] [address] [id number], [place] [address] 16 Mar, 2013 [facility] [place] [facility] [address] [id number], [place] [address] 16 Mar, 2012 [facility] [place] [facility] [address] [id number], [place] [address] 14 Mar, 2013 [facility] [place] [facility] [address] [id number] [place] [address] 14 Mar, 2013 [facility] [address] [id number] [place] [address] 10 Mar, 2013 [facility] [place] [facility] [address] [id number] [place] [address] 08 Mar, 2013 [facility] [address] [id number] [place] [address] 07 Mar, 2013 [facility] [place] [facility] [address] [id number] [place] [address] 26 Feb, 2013 [facility] [place] [facility] [address] [id number] [place] [address] 18 Feb, 2013 [facility] [place] [facility] [address] [id number] [place] [address] 10 Feb, 2013 [facility] [address] [id number] [place] [address] 09 Feb, 2013 [facility] [address] [id number] [place] [address] 30 Jan, 2013 [facility] [place] [facility] [address] [id number] [place] [address] Jan, [facility] [address] [id number] [place] [address] Jan, [facility] [place] [facility] [address] [id number] [place] [address] Jan, [facility] [place] [facility] [address] [id number] [place] [address] Jan, [facility] [place] [facility] [address] [id number] [place] [address] Dec, [facility] [place] [facility] [address] [id number] [place] [address] Dec, [facility] [place] [facility] [address] [id number] [place] [address] Jul, [facility] [place] [facility] [address] [id number] [place] [address] Jul, [facility] [place] [facility] [address] [id number] [place] [address] Jul, [facility] [place] [facility] [address] [id number] [place] [address] Jun, [facility] [place] [facility] [address] [id number] [place] [address] Jun, [facility] [place] [facility] [address] [id number] [place] [address] Apr, [facility] [place] [facility] [address] [id number] [place] [address] Apr, [facility] [place] [facility] [address] [id number] [place] [address] Apr, [facility] [place] [facility] [address] [id number] [place] [address] Apr, [facility] [place] [facility] [address] [id number] [place] [address] Apr, [facility] [place] [facility] [address] [id number] [place] [address] Apr, [facility] [place] [facility] [address] [id number] [place] [address] Apr, [facility] [place] [facility] [address] [id number], [place] [address] Apr, [facility] [place] [facility] [address] [id number] [place] [address] Apr, [facility] [place] [facility] [address] [id number] [place] [address] Mar, [facility] [place] [facility] [address] [id number] [place] [address] Mar, [facility] [place] [facility] [address] [id number], [place] [address] Mar, [facility] [address] [facility] [id number], [place] [address] Mar, [facility] [address] [facility] [id number], [place] [address] Mar, [facility] [id number] [address] Mar, [facility] [id number], [place] [address] Feb, [facility] [id number], [place] [address] Feb, [facility] [address] [facility] [id number], [place] [address] Feb, [facility] [id number], [place] [address] Feb, [facility] [id number], [place] [address] Feb, [facility] [id number], [place] [address] Feb, [facility] [address] [id number], [place] [address] Feb, IMMUNIZATIONS No Known Immunizations SOCIAL HISTORY Never Assessed REASON FOR VISIT [place] [place] VITAL SIGNS MEDICATIONS Unknown Medications RESULTS No Results PROCEDURES No Known procedures INSTRUCTIONS MEDICATIONS ADMINISTERED No Known Medications MEDICAL (GENERAL) HISTORY Type Description Date Hospitalization History [facility]- Left leg redness 04/26/2017
--- OUTSIDE RECORDS SUMMARY | 2019-01-03 12:51 | XMS REPORT ---
Author Author Migration, Doctor Organization [facility] Address Unknown Phone Unavailable Care Team Providers Care Lead Custodian Name Role Phone Migration, Doctor Unavailable Unavailable PROBLEMS Type Condition ICD9-CM Code CNI50-YP Code Onset Dates Condition Status SNOMED Code Problem Difficulty in walking, not elsewhere classified R26.2 Active 258064933 Problem Muscle weakness (generalized) M62.81 Active 33848025 Problem Age-related osteoporosis without current pathological fracture M81.0 Active 19861616 Problem Other hereditary and idiopathic neuropathies G60.8 Active 738709224 Problem Other chronic pain G89.29 Active 79354278 Problem Essential (primary) hypertension I10 Active 14349648 Problem Morbid (severe) obesity due to excess calories E66.01 Active 061745550 Problem Benign prostatic hyperplasia with lower urinary tract symptoms, symptom details unspecified N40.1 Active 094052409 Problem Right foot drop M21.371 Active [id number] Problem Type 2 diabetes mellitus without complication, without long-term current use of insulin E11.9 Active 124870830 Problem Type 2 diabetes mellitus with diabetic neuropathy, unspecified E11.40 Active 07717520 Problem 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 Active 566172005 Problem Type 2 diabetes mellitus with hyperglycemia E11.65 Active 77157311 Problem Allergic rhinitis, unspecified seasonality, unspecified trigger J30.9 Active 74557093 Problem Hyperlipidemia, unspecified hyperlipidemia type E78.5 Active 86021630 Problem Insomnia, unspecified type G47.00 Active 043359198 Problem Constipation, unspecified constipation type K59.00 Active 89940189 Problem alf current use of insulin Z79.4 Active 617256134 ALLERGIES No Information ENCOUNTERS Encounter Location Date Diagnosis [facility] [address] [id number] Sep, [facility] [address] [facility] [id number], [place] [address] Aug, [facility] [address] [facility] [id number], [place] [address] Aug, Urinary tract infection without hematuria, site unspecified N39.0 [facility] [address] [id number] Aug, Left leg swelling M79.89 [facility] [address], [place] [address] Jul, [facility] [address] [place] [address] 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, 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 and Type 2 diabetes mellitus with hyperglycemia E11.65 [place] [address] [place] [address] Jun, [facility] [address] [id number] Jun, Left elbow pain M25.522 [facility] [address] [place] [id number] Jun, Abrasion foot/toe S90.819A and Type 2 diabetes mellitus with diabetic neuropathy, unspecified E11.40 [facility] [address] [id number] Apr, Cellulitis of toe of left foot L03.032 [place] [address] [place] [address] Mar, Extremity cyanosis R23.0 [facility] [address] [id number] Feb, Type 2 diabetes mellitus with diabetic neuropathy, unspecified E11.40 ; alf current use of insulin Z79.4 and Abrasion foot/toe S90.819A [place] [address], [place] [address] Feb, [facility] [address] [place] [id number] [place] [address] Jun, [facility] [address], [place] [address] Sep, [facility] [address] [place] [address] Feb, [facility] [address] [facility] [id number], [place] [address] Dec, [facility] [address], [place] [address] Nov, [facility] [address], [place] [address] Nov, [facility] [address] [id number] October, Diabetes 250.00 [facility] [address] [id number] [address] October, [facility] [address], [place] [address] Sep, [facility] [address], [place] [address] Sep, [facility] [address], [place] [address] Jul, [facility] [address] [id number] [address] Jul, [facility] [address], [place] [address] Jul, [facility] [address] [id number] Jul, [facility] [address], [place] [address] Jul, [facility] [address] [id number] [address] Jul, [facility] [address] [id number] Jul, [facility] [address] [id number] [address] Jun, [facility] [address], [place] [address] Jun, [facility] [address] [facility] [id number] Jun, [facility] [address] [id number] [place] [address] Jun, [facility] [address] [id number] [place] [address] Jun, [facility] [address] [id number] [place] [address] Jun, [facility] [address] [id number] [place] [address] Jun, [facility] [address] [id number] [place] [address] Jun, [facility] [address] [id number] [place] [address] Jun, [facility] [place] [facility] [address] [id number] [place] [address] Jun, [facility] [address] [id number] [place] [address] May, [facility] [place] [facility] [address] [id number] [place] [address] May, [facility] [place] [facility] [address] [id number] [place] [address] May, [facility] [place] [facility] [address] [id number], [place] [address] May, [facility] [place] [facility] [address] [id number] [place] [address] May, [facility] [place] [facility] [address] [id number] [place] [address] Apr, [facility] [place] [facility] [address] [id number] [place] [address] Apr, [facility] [place] [facility] [address] [id number] [place] [address] 08 Apr, 2014 [facility] [place] [facility] [address] [id number] [place] [address] Mar, 2013 [facility] [place] [facility] [address] [id number] [place] [address] Mar, [facility] [place] [facility] [address] [id number] [place] [address] Mar, [facility] [place] [facility] [address] [id number] [place] [address] Mar, [facility] [place] [facility] [address] [id number] [place] [address] Mar, [facility] [place] [facility] [address] [id number] [place] [address] Mar, [facility] [place] [facility] [address] [id number] [place] [address] Mar, [facility] [place] [facility] [address] [id number] [place] [address] Mar, [facility] [place] [facility] [address] [id number] [place] [address] Mar, [facility] [place] [facility] [address] [id number] [place] [address] Mar, [facility] [place] [facility] [address] [id number] [place] [address] Mar, [facility] [place] [facility] [address] [id number] [place] [address] Mar, [facility] [place] [facility] [address] [id number] [place] [address] Mar, [facility] [place] [facility] [address] [id number] [place] [address] Mar, [facility] [place] [facility] [address] [id number] [place] [address] Feb, [facility] [place] [facility] [address] [id number] [place] [address] Jan, [facility] [place] [facility] [address] [id number] [place] [address] Jan, [facility] [place] [facility] [address] [id number] [place] [address] Jan, [facility] [place] [facility] [address] [id number] [place] [address] Jan, [facility] [place] [facility] [address] [id number] [place] [address] Jan, [facility] [place] [facility] [address] [id number] [place] [address] Jan, [facility] [place] [facility] [address] [id number] [place] [address] Dec, [facility] [place] [facility] [address] [id number] [place] [address] Dec, [facility] [place] [facility] [address] [id number] [place] [address] Dec, [facility] [place] [facility] [address] [id number] [place] [address] Dec, [facility] [place] [facility] [address] [id number] [place] [address] Dec, [facility] [place] [facility] [address] [id number] [place] [address] Dec, [facility] [place] [facility] [address] [id number] [place] [address] Dec, [facility] [place] [facility] [address] [id number] [place] [address] Dec, [facility] [place] [facility] [address] [id number] [place] [address] Dec, [facility] [place] [facility] [address] [id number] [place] [address] Dec, [facility] [place] [facility] [address] [id number] [place] [address] Nov, [facility] [place] [facility] [address] [id number] [place] [address] Nov, [facility] [place] [facility] [address] [id number] [place] [address] October, [facility] [place] [facility] [address] [id number] [place] [address] October, [facility] [place] [facility] [address] [id number] [place] [address] October, [facility] [place] [facility] [address] [id number] [place] [address] October, [facility] [place] [facility] [address] [id number] [place] [address] October, [facility] [place] [facility] [address] [id number] [place] [address] October, [facility] [place] [facility] [address] [id number] [place] [address] October, [facility] [place] [facility] [address] [id number] [place] [address] October, [facility] [place] [facility] [address] [id number] [place] [address] October, [facility] [place] [facility] [address] [id number] [place] [address] October, [facility] [place] [facility] [address] [id number] [place] [address] October, [facility] [place] [facility] [address] [id number] [place] [address] October, [facility] [place] [facility] [address] [id number] [place] [address] October, [facility] [place] [facility] [address] [id number] [place] [address] October, [facility] [place] [facility] [address] [id number] [place] [address] October, [facility] [place] [facility] [address] [id number] [place] [address] October, [facility] [place] [facility] [address] [id number] [place] [address] Sep, [facility] [place] [facility] [address] [id number] [place] [address] Sep, [facility] [place] [facility] [address] [id number] [place] [address] Aug, [facility] [place] [facility] [address] [id number] [place] [address] Aug, [facility] [place] [facility] [address] [id number] [place] [address] Aug, [facility] [place] [facility] [address] [id number] [place] [address] Aug, [facility] [place] [facility] [address] [id number] [place] [address] Aug, [facility] [place] [facility] [address] [id number] [place] [address] Aug, [facility] [place] [facility] [address] [id number] [place] [address] Jul, [facility] [place] [facility] [address] [id number] [place] [address] Jul, [facility] [place] [facility] [address] [id number] [place] [address] Jul, [facility] [place] [facility] [address] [id number] [place] [address] Jul, [facility] [place] [facility] [address] [id number] [place] [address] Jul, [facility] [place] [facility] [address] [id number] [place] [address] Jul, [facility] [place] [facility] [address] [id number] [place] [address] Jul, [facility] [place] [facility] [address] [facility] [id number] [place] [address] Jul, [facility] [place] [facility] [address] [id number] [place] [address] Jul, [facility] [place] [facility] [address] [id number] [place] [address] Jul, [facility] [place] [facility] [address] [facility] [id number] [place] [address] Jul, [facility] [place] [facility] [address] [facility] [id number] [place] [address] Jul, [facility] [place] [facility] [address] [facility] [id number] [place] [address] Jul, [facility] [place] [facility] [address] [facility] [id number] [place] [address] Jun, [facility] [place] [facility] [address] [facility] [id number] [place] [address] Jun, [facility] [place] [facility] [address] [facility] [id number] [place] [address] Jun, [facility] [place] [facility] [address] [facility] [id number] [place] [address] Jun, [facility] [place] [facility] [address] [id number] [place] [address] Jun, [facility] [place] [facility] [address] [facility] [id number] [place] [address] Jun, [facility] [place] [facility] [address] [facility] [id number], [place] [address] Jun, [facility] [place] [facility] [address] [id number] [place] [address] Jun, [facility] [address] [id number] [place] [address] Jun, [facility] [place] [facility] [address] [id number] [place] [address] Jun, [facility] [place] [facility] [address] [id number] [place] [address] Jun, [facility] [place] [facility] [address] [id number] [place] [address] Jun, [facility] [place] [facility] [address] [id number] [place] [address] Jun, [facility] [place] [facility] [address] [id number] [place] [address] May, [facility] [place] [facility] [address] [id number] [place] [address] May, [facility] [place] [facility] [address] [id number] [place] [address] May, [facility] [place] [facility] [address] [id number] [place] [address] May, [facility] [place] [facility] [address] [id number] [place] [address] Apr, [facility] [place] [facility] [address] [id number] [place] [address] Apr, [facility] [place] [facility] [address] [id number] [place] [address] Apr, [facility] [place] [facility] [address] [id number] [place] [address] Apr, [facility] [place] [facility] [address] [id number] [place] [address] 14 Apr, 2013 [facility] [place] [facility] [address] [id number] [place] [address] 14 Apr, 2013 [facility] [place] [facility] [address] [id number] [place] [address] 08 Apr, 2013 [facility] [place] [facility] [address] [id number], [place] [address] 08 Apr, 2013 [facility] [place] [facility] [address] [facility] [id number] [place] [address] 07 Apr, 2013 [facility] [place] [facility] [address] [id number], [place] [address] 07 Apr, 2013 [facility] [place] [facility] [address] [id number] [place] [address] Apr, [facility] [place] [facility] [address] [id number], [place] [address] Apr, [facility] [place] [facility] [address] [id number], [place] [address] Apr, [facility] [place] [facility] [address] [id number], [place] [address] Apr, [facility] [place] [facility] [address] [id number], [place] [address] Apr, [facility] [place] [facility] [address] [id number], [place] [address] Apr, [facility] [place] [facility] [address] [id number], [place] [address] 30 Mar, 2013 [facility] [place] [facility] [address] [id number], [place] [address] 30 Mar, 2013 [facility] [place] [facility] [address] [id number], [place] [address] 16 Mar, 2013 [facility] [place] [facility] [address] [id number], [place] [address] 16 Mar, 2012 [facility] [place] [facility] [address] [id number], [place] [address] 14 Mar, 2013 [facility] [place] [facility] [address] [id number] [place] [address] 14 Mar, 2013 [facility] [address] [id number] [place] [address] 10 Mar, 2013 [facility] [place] [facility] [address] [id number] [place] [address] 08 Mar, 2013 [facility] [address] [id number] [place] [address] 07 Mar, 2013 [facility] [place] [facility] [address] [id number] [place] [address] 26 Feb, 2013 [facility] [place] [facility] [address] [id number] [place] [address] 18 Feb, 2013 [facility] [place] [facility] [address] [id number] [place] [address] 10 Feb, 2013 [facility] [address] [id number] [place] [address] 09 Feb, 2013 [facility] [address] [id number] [place] [address] 30 Jan, 2013 [facility] [place] [facility] [address] [id number] [place] [address] Jan, [facility] [address] [id number] [place] [address] Jan, [facility] [place] [facility] [address] [id number] [place] [address] Jan, [facility] [place] [facility] [address] [id number] [place] [address] Jan, [facility] [place] [facility] [address] [id number] [place] [address] Dec, [facility] [place] [facility] [address] [id number] [place] [address] Dec, [facility] [place] [facility] [address] [id number] [place] [address] Jul, [facility] [place] [facility] [address] [id number] [place] [address] Jul, [facility] [place] [facility] [address] [id number] [place] [address] Jul, [facility] [place] [facility] [address] [id number] [place] [address] Jun, [facility] [place] [facility] [address] [id number] [place] [address] Jun, [facility] [place] [facility] [address] [id number] [place] [address] Apr, [facility] [place] [facility] [address] [id number] [place] [address] Apr, [facility] [place] [facility] [address] [id number] [place] [address] Apr, [facility] [place] [facility] [address] [id number] [place] [address] Apr, [facility] [place] [facility] [address] [id number] [place] [address] Apr, [facility] [place] [facility] [address] [id number] [place] [address] Apr, [facility] [place] [facility] [address] [id number] [place] [address] Apr, [facility] [place] [facility] [address] [id number], [place] [address] Apr, [facility] [place] [facility] [address] [id number] [place] [address] Apr, [facility] [place] [facility] [address] [id number] [place] [address] Mar, [facility] [place] [facility] [address] [id number] [place] [address] Mar, [facility] [place] [facility] [address] [id number], [place] [address] Mar, [facility] [address] [facility] [id number], [place] [address] Mar, [facility] [address] [facility] [id number], [place] [address] Mar, [facility] [id number] [address] Mar, [facility] [id number] [address] Feb, [facility] [id number], [place] [address] Feb, [facility] [address] [facility] [id number], [place] [address] Feb, [facility] [id number], [place] [address] Feb, [facility] [id number], [place] [address] Feb, [facility] [id number] [address] Feb, [facility] [address] [id number] [address] Feb, IMMUNIZATIONS No Known Immunizations SOCIAL HISTORY Never Assessed REASON FOR VISIT EMR-[facility] PLAN OF CARE VITAL SIGNS MEDICATIONS Unknown Medications RESULTS No Results PROCEDURES No Known procedures INSTRUCTIONS MEDICATIONS ADMINISTERED No Known Medications MEDICAL (GENERAL) HISTORY Type Description Date Hospitalization History [facility]- Left leg redness 04/26/2017
--- OUTSIDE RECORDS SUMMARY | 2019-01-03 12:52 | XMS REPORT ---
Author Author Migration, Doctor Organization [facility] Address Unknown Phone Unavailable Care Team Providers Care General Superintendent Name Role Phone Migration, Doctor Unavailable Unavailable PROBLEMS Type Condition ICD9-CM Code CDQ47-DN Code Onset Dates Condition Status SNOMED Code Problem Difficulty in walking, not elsewhere classified R26.2 Active 983976036 Problem Muscle weakness (generalized) M62.81 Active 30366508 Problem Age-related osteoporosis without current pathological fracture M81.0 Active 20566584 Problem Other hereditary and idiopathic neuropathies G60.8 Active 966462950 Problem Other chronic pain G89.29 Active 80102345 Problem Essential (primary) hypertension I10 Active 07153131 Problem Morbid (severe) obesity due to excess calories E66.01 Active 094755023 Problem Benign prostatic hyperplasia with lower urinary tract symptoms, symptom details unspecified N40.1 Active 824846661 Problem Right foot drop M21.371 Active 712022738637583 Problem Type 2 diabetes mellitus without complication, without long-term current use of insulin E11.9 Active 159775704 Problem Type 2 diabetes mellitus with diabetic neuropathy, unspecified E11.40 Active 72377677 Problem 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 [address] [facility] [id number], [place] [address] Aug, [facility] [address] [facility] [id number], [place] [address] Aug, Urinary tract infection without hematuria, site unspecified N39.0 [facility] [address] [id number] Aug, Left leg swelling M79.89 [facility] [address], [place] [address] Jul, [facility] [id number] [place] [address] Jul, longterm current use of insulin Z79.4 and Type 2 diabetes mellitus with hyperglycemia E11.65 [place] [address] [address] [id number] [place] [address] Jun, [facility] [address] [id number] Jun, Left elbow pain M25.522 [facility] [address] [place] [id number] Jun, Abrasion foot/toe S90.819A and Type 2 diabetes mellitus with diabetic neuropathy, unspecified E11.40 [facility] [address] [place] [id number] Apr, Cellulitis of toe of left foot L03.032 [place] [id number] [place] [address] Mar, Extremity cyanosis R23.0 [facility] [address] [place] [id number] Feb, Type 2 diabetes mellitus with diabetic neuropathy, unspecified E11.40 ; intermediate designer current use of insulin Z79.4 and Abrasion foot/toe S90.819A [place] [address], [place] [address] Feb, [place] [address], [place] [address] Jun, [place] [address] [id number] [place] [address] Sep, [facility] [address], [place] [address] Feb, [place] [address] [id number], [place] [address] Dec, [facility] [address] [id number], [place] [address] Nov, [facility] [address], [place] [address] Nov, [facility] [address] [place] [id number] October, Diabetes 250.00 [facility] [address] [id number], [place] [address] October, [facility] [address] [id number], [place] [address] Sep, [facility] [address], [place] [address] Sep, [facility] [address], [place] [address] Jul, [facility] [address], [place] [address] Jul, [facility] [address], [place] [address] Jul, [facility] [address] [id number] Jul, [facility] [id number], [place] [address] Jul, [facility] [address] [id number], [place] [address] Jul, [facility] [address] [id number] Jul, [facility] [address] [id number], [place] [address] Jun, [facility] [address] [id number], [place] [address] Jun, [facility] [address] [id number] 14 Jun, 2014 [facility] [address] [id number] [place] [address] Jun, [facility] [place] [facility] [address] [id number] [place] [address] Jun, [facility] [address] [id number] [place] [address] Jun, [facility] [place] [facility] [address] [id number] [place] [address] Jun, [facility] [address] [id number] [place] [address] Jun, [facility] [place] [facility] [address] [id number] [place] [address] Jun, [facility] [address] [id number] [place] [address] Jun, [facility] [place] [facility] [address] [id number] [place] [address] May, [facility] [place] [facility] [address] [id number] [place] [address] May, [facility] [place] [facility] [address] [facility] [id number] [place] [address] May, [facility] [place] [facility] [address] [id number] [place] [address] May, [facility] [place] [facility] [address] [id number] [place] [address] May, [facility] [place] [facility] [address] [id number] [place] [address] Apr, [facility] [place] [facility] [address] [id number] [place] [address] Apr, [facility] [place] [facility] [address] [facility] [id number] [place] [address] Apr, [facility] [place] [facility] [address] [id number] [place] [address] Mar, [facility] [place] [facility] [address] [id number] [place] [address] Mar, [facility] [place] [facility] [address] [id number] [place] [address] Mar, [facility] [place] [facility] [address] [id number] [place] [address] Mar, [facility] [place] [facility] [address] [id number] [place] [address] Mar, [facility] [place] [facility] [address] [id number] [place] [address] Mar, [facility] [place] [facility] [address] [id number] [place] [address] Mar, [facility] [place] [facility] [address] [id number] [place] [address] Mar, [facility] [place] [facility] [address] [id number] [place] [address] Mar, [facility] [place] [facility] [address] [id number] [place] [address] Mar, [facility] [place] [facility] [address] [id number] [place] [address] Mar, [facility] [place] [facility] [address] [id number] [place] [address] Mar, [facility] [place] [facility] [address] [id number] [place] [address] Mar, [facility] [place] [facility] [address] [id number] [place] [address] Mar, [facility] [place] [facility] [address] [id number] [place] [address] Feb, [facility] [place] [facility] [address] [id number] [place] [address] Jan, [facility] [place] [facility] [address] [id number] [place] [address] Jan, [facility] [place] [facility] [address] [id number] [place] [address] Jan, [facility] [place] [facility] [address] [id number] [place] [address] Jan, [facility] [place] [facility] [address] [id number] [place] [address] Jan, [facility] [place] [facility] [address] [id number] [place] [address] Jan, [facility] [place] [facility] [address] [id number] [place] [address] Dec, [facility] [place] [facility] [address] [id number] [place] [address] Dec, [facility] [place] [facility] [address] [id number] [place] [address] Dec, [facility] [place] [facility] [address] [id number] [place] [address] Dec, [facility] [place] [facility] [address] [id number] [place] [address] Dec, [facility] [place] [facility] [address] [id number] [place] [address] Dec, [facility] [place] [facility] [address] [id number] [place] [address] Dec, [facility] [place] [facility] [address] [id number] [place] [address] Dec, [facility] [place] [facility] [address] [id number] [place] [address] Dec, [facility] [place] [facility] [address] [id number] [place] [address] Dec, [facility] [place] [facility] [address] [id number] [place] [address] Nov, [facility] [address] [id number] [place] [address] Nov, [facility] [place] [facility] [address] [id number] [place] [address] October, [facility] [address] [id number] [place] [address] October, [facility] [place] [facility] [address] [id number] [place] [address] October, [facility] [address] [id number] [place] [address] October, [facility] [address] [id number] [place] [address] October, [facility] [address] [id number] [place] [address] October, [facility] [address] [id number] [place] [address] October, [facility] [place] [facility] [address] [id number] [place] [address] October, [facility] [address] [id number] [place] [address] October, [facility] [place] [facility] [address] [id number] [place] [address] October, [facility] [place] [facility] [address] [id number] [place] [address] October, [facility] [place] [facility] [address] [id number] [place] [address] October, [facility] [place] [facility] [address] [id number] [place] [address] October, [facility] [place] [facility] [address] [id number] [place] [address] October, [facility] [place] [facility] [address] [id number] [place] [address] October, [facility] [place] [facility] [address] [id number] [place] [address] October, [facility] [place] [facility] [address] [id number] [place] [address] Sep, [facility] [place] [facility] [address] [id number] [place] [address] Sep, [facility] [place] [facility] [address] [id number] [place] [address] Aug, [facility] [place] [facility] [address] [id number] [place] [address] Aug, [facility] [place] [facility] [address] [id number] [place] [address] Aug, [facility] [place] [facility] [address] [id number] [place] [address] Aug, [facility] [place] [facility] [address] [id number] [place] [address] Aug, [facility] [place] [facility] [address] [id number] [place] [address] Aug, [facility] [place] [facility] [address] [id number] [place] [address] Jul, [facility] [place] [facility] [address] [id number] [place] [address] Jul, [facility] [place] [facility] [address] [id number] [place] [address] Jul, [facility] [place] [facility] [address] [id number] [place] [address] Jul, [facility] [place] [facility] [address] [id number] [place] [address] Jul, [facility] [place] [facility] [address] [id number] [place] [address] Jul, [facility] [place] [facility] [address] [id number] [place] [address] Jul, [facility] [place] [facility] [address] [id number] [place] [address] Jul, [facility] [place] [facility] [address] [id number] [place] [address] Jul, [facility] [place] [facility] [address] [id number] [place] [address] Jul, [facility] [place] [facility] [address] [id number] [place] [address] Jul, [facility] [place] [facility] [address] [id number] [place] [address] Jul, [facility] [place] [facility] [address] [id number] [place] [address] Jul, [facility] [place] [facility] [address] [id number] [place] [address] Jun, [facility] [place] [facility] [address] [id number] [place] [address] Jun, [facility] [place] [facility] [address] [facility] [id number] [place] [address] Jun, [facility] [place] [facility] [address] [id number] [place] [address] Jun, [facility] [place] [facility] [address] [id number] [place] [address] Jun, [facility] [place] [facility] [address] [id number] [place] [address] Jun, [facility] [place] [facility] [address] [id number] [place] [address] Jun, [facility] [place] [facility] [address] [id number] [place] [address] Jun, [facility] [address] [id number] [place] [address] Jun, [facility] [place] [facility] [address] [id number] [place] [address] Jun, [facility] [place] [facility] [address] [id number] [place] [address] Jun, [facility] [place] [facility] [address] [id number] [place] [address] Jun, [facility] [place] [facility] [address] [id number] [place] [address] Jun, [facility] [place] [facility] [address] [id number] [place] [address] May, [facility] [place] [facility] [address] [id number] [place] [address] May, [facility] [place] [facility] [address] [id number], [place] [address] May, [facility] [place] [facility] [address] [id number] [place] [address] May, [facility] [place] [facility] [address] [id number], [place] [address] Apr, [facility] [place] [facility] [address] [id number], [place] [address] Apr, [facility] [place] [facility] [address] [id number], [place] [address] Apr, [facility] [place] [facility] [address] [id number] [place] [address] Apr, [facility] [place] [facility] [address] [id number], [place] [address] Apr, [facility] [place] [facility] [address] [id number] [place] [address] Apr, [facility] [place] [facility] [address] [id number] [place] [address] 08 Apr, 2012 [facility] [place] [facility] [address] [id number] [place] [address] 08 Apr, 2012 [facility] [place] [facility] [address] [id number] [place] [address] 07 Apr, 2012 [facility] [place] [facility] [address] [id number] [place] [address] 07 Apr, 2012 [facility] [place] [facility] [address] [id number] [place] [address] 07 Apr, 2012 [facility] [place] [facility] [address] [id number] [place] [address] 07 Apr, 2012 [facility] [place] [facility] [address] [id number] [place] [address] 06 Apr, 2012 [facility] [place] [facility] [address] [id number] [place] [address] 06 Apr, 2012 [facility] [place] [facility] [address] [id number] [place] [address] 06 Apr, 2012 [facility] [place] [facility] [address] [id number] [place] [address] 06 Apr, 2012 [facility] [place] [facility] [address] [facility] [id number] [place] [address] 30 Mar, 2013 [facility] [place] [facility] [address] [id number] [place] [address] 30 Mar, 2012 [facility] [place] [facility] [address] [id number], [place] [address] 16 Mar, 2012 [facility] [place] [facility] [address] [id number] [place] [address] 16 Mar, 2012 [facility] [place] [facility] [address] [id number] [place] [address] 14 Mar, 2012 [facility] [place] [facility] [address] [facility] [id number], [place] [address] 14 Mar2012 [facility] [place] [facility] [address] [id number] [place] [address] Mar, [facility] [place] [facility] [address] [id number] [place] [address] Mar, [facility] [place] [facility] [address] [id number] [place] [address] Mar, [facility] [place] [facility] [address] [id number] [place] [address] Feb, [facility] [place] [facility] [address] [id number] [place] [address] Feb, [facility] [place] [facility] [address] [id number] [place] [address] Feb, [facility] [place] [facility] [address] [id number] [place] [address] Feb, [facility] [place] [facility] [address] [id number] [place] [address] Jan, [facility] [place] [facility] [address] [id number] [place] [address] Jan, [facility] [place] [facility] [address] [id number] [place] [address] Jan, [facility] [place] [facility] [address] [id number] [place] [address] Jan, [facility] [place] [facility] [address] [id number] [place] [address] Jan, [facility] [place] [facility] [address] [id number] [place] [address] Dec, [facility] [place] [facility] [address] [id number] [place] [address] Dec, [facility] [place] [facility] [address] [id number] [place] [address] Jul, [facility] [place] [facility] [address] [id number] [place] [address] Jul, [facility] [place] [facility] [address] [id number] [place] [address] Jul, [facility] [place] [facility] [address] [id number] [place] [address] Jun, [facility] [place] [facility] [address] [id number] [place] [address] Jun, [facility] [place] [facility] [address] [id number] [place] [address] Apr, [facility] [place] [facility] [address] [id number] [place] [address] Apr, [facility] [place] [facility] [address] [id number] [place] [address] Apr, [facility] [place] [facility] [address] [id number] [place] [address] Apr, [facility] [place] [facility] [address] [id number] [place] [address] Apr, [facility] [place] [facility] [address] [id number] [place] [address] Apr, [facility] [place] [facility] [address] [id number] [place] [address] Apr, [facility] [place] [facility] [address] [id number], [place] [address] Apr, [facility] [place] [facility] [address] [id number], [place] [address] Apr, [facility] [place] [facility] [address] [id number] [place] [address] Mar, [facility] [place] [facility] [address] [id number] [place] [address] Mar, [facility] [place] [facility] [address] [id number] [place] [address] Mar, [facility] [place] [facility] [id number], [place] [address] Mar, [facility] [id number] [address] Mar, [facility] [id number] [address] Mar, [facility] [id number] [address] Feb, [facility] [id number] [address] Feb, [facility] [id number] [address] Feb, [facility] [id number] [address] Feb, [facility] [id number] [address] Feb, [facility] [id number], [place] [address] Feb, [facility] [id number], [place] [address] Feb, IMMUNIZATIONS No Known Immunizations SOCIAL HISTORY Never Assessed REASON FOR VISIT EMR-[facility] [place] PLAN OF CARE VITAL SIGNS MEDICATIONS Unknown Medications RESULTS No Results PROCEDURES No Known procedures INSTRUCTIONS MEDICATIONS ADMINISTERED No Known Medications MEDICAL (GENERAL) HISTORY Type Description Date Hospitalization History [facility] [place]- Left leg redness 04/26/2017
--- OUTSIDE RECORDS SUMMARY | 2019-01-03 12:52 | XMS REPORT ---
Author Author Migration, Doctor Organization [facility] Address Unknown Phone Unavailable Care Team Providers Care Pre Billing Specialist Name Role Phone Migration, Doctor Unavailable Unavailable PROBLEMS Type Condition ICD9-CM Code BMB61-KL Code Onset Dates Condition Status SNOMED Code Problem Difficulty in walking, not elsewhere classified R26.2 Active 344137307 Problem Muscle weakness (generalized) M62.81 Active 71615401 Problem Age-related osteoporosis without current pathological fracture M81.0 Active 30110193 Problem Other hereditary and idiopathic neuropathies G60.8 Active 476580158 Problem Other chronic pain G89.29 Active 91035454 Problem Essential (primary) hypertension I10 Active 64551782 Problem Morbid (severe) obesity due to excess calories E66.01 Active 146292901 Problem Benign prostatic hyperplasia with lower urinary tract symptoms, symptom details unspecified N40.1 Active 759503757 Problem Right foot drop M21.371 Active [id number] Problem Type 2 diabetes mellitus without complication, without long-term current use of insulin E11.9 Active 859307313 Problem Type 2 diabetes mellitus with diabetic neuropathy, unspecified E11.40 Active 20363538 Problem 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 Active 195033902 Problem Type 2 diabetes mellitus with hyperglycemia E11.65 Active 18050869 Problem Allergic rhinitis, unspecified seasonality, unspecified trigger J30.9 Active 71319179 Problem Hyperlipidemia, unspecified hyperlipidemia type E78.5 Active 04689835 Problem Insomnia, unspecified type G47.00 Active 729641948 Problem Constipation, unspecified constipation type K59.00 Active 41640254 Problem half-way current use of insulin Z79.4 Active 641033158 ALLERGIES No Information ENCOUNTERS Encounter Location Date Diagnosis [facility] [address] [facility] [id number], [place] [address] Aug, [facility] [address] [facility] [id number], [place] [address] Aug, Urinary tract infection without hematuria, site unspecified N39.0 [facility] [address], [place] [id number] Aug, Left leg swelling M79.89 [facility] [address], [place] [address] Jul, [facility] [id number] [place] [address] Jul, half-way current use of insulin Z79.4 and Type 2 diabetes mellitus with hyperglycemia E11.65 [facility] [id number] [place] [address] Jun, [facility] [address] [id number] Jun, Left elbow pain M25.522 [facility] [address] [place] [id number] Jun, Abrasion foot/toe S90.819A and Type 2 diabetes mellitus with diabetic neuropathy, unspecified E11.40 [facility] [address] [place] [id number] Apr, Cellulitis of toe of left foot L03.032 [place] [address] [place] [address] Mar, Extremity cyanosis R23.0 [facility] [address] [place] [id number] Feb, Type 2 diabetes mellitus with diabetic neuropathy, unspecified E11.40 ; [employer] current use of insulin Z79.4 and Abrasion foot/toe S90.819A [place] [address], [place] [address] Feb, [facility] [address], [place] [address] Jun, [place] [address] [id number] [place] [address] Sep, [facility] [address], [place] [address] Feb, [place] [address] [id number], [place] [address] Dec, [facility] [address] [id number], [place] [address] Nov, [facility] [address], [place] [address] Nov, [facility] [address] [place] [id number] October, Diabetes 250.00 [facility] [address] [id number], [place] [address] October, [facility] [address] [id number], [place] [address] Sep, [facility] [address], [place] [address] Sep, [facility] [address], [place] [address] Jul, [facility] [address], [place] [address] Jul, [facility] [address], [place] [address] Jul, [facility] [address] [id number] Jul, [facility] [address] [id number], [place] [address] Jul, [facility] [address] [id number], [place] [address] Jul, [facility] [address] [id number] Jul, [facility] [address] [id number], [place] [address] Jun, [facility] [address] [id number], [place] [address] Jun, [facility] [address] [id number] Jun, 2014 [facility] [address] [id number] [place] [address] Jun, [facility] [place] [facility] [address] [id number] [place] [address] Jun, [facility] [address] [id number] [place] [address] Jun, [facility] [place] [facility] [address] [id number] [place] [address] Jun, [facility] [address] [id number] [place] [address] Jun, [facility] [place] [facility] [address] [id number] [place] [address] Jun, [facility] [address] [id number] [place] [address] Jun, [facility] [place] [facility] [address] [id number] [place] [address] May, [facility] [place] [facility] [address] [id number] [place] [address] May, [facility] [place] [facility] [address] [facility] [id number] [place] [address] May, [facility] [place] [facility] [address] [id number] [place] [address] May, [facility] [place] [facility] [address] [id number] [place] [address] May, [facility] [place] [facility] [address] [id number] [place] [address] Apr, [facility] [place] [facility] [address] [id number] [place] [address] Apr, [facility] [place] [facility] [address] [facility] [id number] [place] [address] Apr, [facility] [place] [facility] [address] [id number] [place] [address] Mar, [facility] [place] [facility] [address] [id number] [place] [address] Mar, [facility] [place] [facility] [address] [id number] [place] [address] Mar, [facility] [place] [facility] [address] [id number] [place] [address] Mar, [facility] [place] [facility] [address] [id number] [place] [address] Mar, [facility] [place] [facility] [address] [id number] [place] [address] Mar, [facility] [place] [facility] [address] [id number] [place] [address] Mar, [facility] [place] [facility] [address] [id number] [place] [address] Mar, [facility] [place] [facility] [address] [id number] [place] [address] Mar, [facility] [place] [facility] [address] [id number] [place] [address] Mar, [facility] [place] [facility] [address] [id number] [place] [address] Mar, [facility] [place] [facility] [address] [id number] [place] [address] Mar, [facility] [place] [facility] [address] [id number] [place] [address] Mar, [facility] [place] [facility] [address] [id number] [place] [address] Mar, [facility] [place] [facility] [address] [id number] [place] [address] Feb, [facility] [place] [facility] [address] [id number] [place] [address] Jan, [facility] [place] [facility] [address] [id number] [place] [address] Jan, [facility] [place] [facility] [address] [id number] [place] [address] Jan, [facility] [place] [facility] [address] [id number] [place] [address] Jan, [facility] [place] [facility] [address] [id number] [place] [address] Jan, [facility] [place] [facility] [address] [id number] [place] [address] Jan, [facility] [place] [facility] [address] [id number] [place] [address] Dec, [facility] [place] [facility] [address] [id number] [place] [address] Dec, [facility] [place] [facility] [address] [id number] [place] [address] Dec, [facility] [place] [facility] [address] [id number] [place] [address] Dec, [facility] [place] [facility] [address] [id number] [place] [address] Dec, [facility] [place] [facility] [address] [id number] [place] [address] Dec, [facility] [place] [facility] [address] [id number] [place] [address] Dec, [facility] [place] [facility] [address] [id number] [place] [address] Dec, [facility] [place] [facility] [address] [id number] [place] [address] Dec, [facility] [place] [facility] [address] [id number] [place] [address] Dec, [facility] [place] [facility] [address] [id number] [place] [address] Nov, [facility] [address] [id number] [place] [address] Nov, [facility] [place] [facility] [address] [id number] [place] [address] October, [facility] [address] [id number] [place] [address] October, [facility] [place] [facility] [address] [id number] [place] [address] October, [facility] [address] [id number] [place] [address] October, [facility] [address] [id number] [place] [address] October, [facility] [address] [id number] [place] [address] October, [facility] [address] [id number] [place] [address] October, [facility] [place] [facility] [address] [id number] [place] [address] October, [facility] [address] [id number] [place] [address] October, [facility] [place] [facility] [address] [id number] [place] [address] October, [facility] [place] [facility] [address] [id number] [place] [address] October, [facility] [place] [facility] [address] [id number] [place] [address] October, [facility] [place] [facility] [address] [id number] [place] [address] October, [facility] [place] [facility] [address] [id number] [place] [address] October, [facility] [place] [facility] [address] [id number] [place] [address] October, [facility] [place] [facility] [address] [id number] [place] [address] October, [facility] [place] [facility] [address] [id number] [place] [address] Sep, [facility] [place] [facility] [address] [id number] [place] [address] Sep, [facility] [place] [facility] [address] [id number] [place] [address] Aug, [facility] [place] [facility] [address] [id number] [place] [address] Aug, [facility] [place] [facility] [address] [id number] [place] [address] Aug, [facility] [place] [facility] [address] [id number] [place] [address] Aug, [facility] [place] [facility] [address] [id number] [place] [address] Aug, [facility] [place] [facility] [address] [id number] [place] [address] Aug, [facility] [place] [facility] [address] [id number] [place] [address] Jul, [facility] [place] [facility] [address] [id number] [place] [address] Jul, [facility] [place] [facility] [address] [id number] [place] [address] Jul, [facility] [place] [facility] [address] [id number] [place] [address] Jul, [facility] [place] [facility] [address] [id number] [place] [address] Jul, [facility] [place] [facility] [address] [id number] [place] [address] Jul, [facility] [place] [facility] [address] [id number] [place] [address] Jul, [facility] [place] [facility] [address] [id number] [place] [address] Jul, [facility] [place] [facility] [address] [id number] [place] [address] Jul, [facility] [place] [facility] [address] [id number] [place] [address] Jul, [facility] [place] [facility] [address] [id number] [place] [address] Jul, [facility] [place] [facility] [address] [id number] [place] [address] Jul, [facility] [place] [facility] [address] [id number] [place] [address] Jul, [facility] [place] [facility] [address] [id number] [place] [address] Jun, [facility] [place] [facility] [address] [id number] [place] [address] Jun, [facility] [place] [facility] [address] [facility] [id number] [place] [address] Jun, [facility] [place] [facility] [address] [id number] [place] [address] Jun, [facility] [place] [facility] [address] [id number] [place] [address] Jun, [facility] [place] [facility] [address] [id number] [place] [address] Jun, [facility] [place] [facility] [address] [id number] [place] [address] Jun, [facility] [place] [facility] [address] [id number] [place] [address] Jun, [facility] [address] [id number] [place] [address] Jun, [facility] [place] [facility] [address] [id number] [place] [address] Jun, [facility] [place] [facility] [address] [id number] [place] [address] Jun, [facility] [place] [facility] [address] [id number] [place] [address] Jun, [facility] [place] [facility] [address] [id number] [place] [address] Jun, [facility] [place] [facility] [address] [id number] [place] [address] May, [facility] [place] [facility] [address] [id number] [place] [address] May, [facility] [place] [facility] [address] [id number], [place] [address] May, [facility] [place] [facility] [address] [id number] [place] [address] May, [facility] [place] [facility] [address] [id number], [place] [address] Apr, [facility] [place] [facility] [address] [id number], [place] [address] Apr, [facility] [place] [facility] [address] [id number], [place] [address] Apr, [facility] [place] [facility] [address] [id number] [place] [address] Apr, [facility] [place] [facility] [address] [id number], [place] [address] Apr, [facility] [place] [facility] [address] [id number] [place] [address] Apr, [facility] [place] [facility] [address] [id number] [place] [address] 08 Apr, 2012 [facility] [place] [facility] [address] [id number] [place] [address] 08 Apr, 2012 [facility] [place] [facility] [address] [id number] [place] [address] 07 Apr, 2012 [facility] [place] [facility] [address] [id number] [place] [address] 07 Apr, 2012 [facility] [place] [facility] [address] [id number] [place] [address] 07 Apr, 2012 [facility] [place] [facility] [address] [id number] [place] [address] 07 Apr, 2012 [facility] [place] [facility] [address] [id number] [place] [address] 06 Apr, 2012 [facility] [place] [facility] [address] [id number] [place] [address] 06 Apr, 2012 [facility] [place] [facility] [address] [id number] [place] [address] 06 Apr, 2012 [facility] [place] [facility] [address] [id number] [place] [address] 06 Apr, 2012 [facility] [place] [facility] [address] [facility] [id number] [place] [address] 30 Mar, 2013 [facility] [place] [facility] [address] [id number] [place] [address] 30 Mar, 2012 [facility] [place] [facility] [address] [id number], [place] [address] 16 Mar, 2012 [facility] [place] [facility] [address] [id number] [place] [address] 16 Mar, 2012 [facility] [place] [facility] [address] [id number] [place] [address] 14 Mar, 2012 [facility] [place] [facility] [address] [facility] [id number], [place] [address] 14 Mar2012 [facility] [place] [facility] [address] [id number] [place] [address] Mar, [facility] [place] [facility] [address] [id number] [place] [address] Mar, [facility] [place] [facility] [address] [id number] [place] [address] Mar, [facility] [place] [facility] [address] [id number] [place] [address] Feb, [facility] [place] [facility] [address] [id number] [place] [address] Feb, [facility] [place] [facility] [address] [id number] [place] [address] Feb, [facility] [place] [facility] [address] [id number] [place] [address] Feb, [facility] [place] [facility] [address] [id number] [place] [address] Jan, [facility] [place] [facility] [address] [id number] [place] [address] Jan, [facility] [place] [facility] [address] [id number] [place] [address] Jan, [facility] [place] [facility] [address] [id number] [place] [address] Jan, [facility] [place] [facility] [address] [id number] [place] [address] Jan, [facility] [place] [facility] [address] [id number] [place] [address] Dec, [facility] [place] [facility] [address] [id number] [place] [address] Dec, [facility] [place] [facility] [address] [id number] [place] [address] Jul, [facility] [place] [facility] [address] [id number] [place] [address] Jul, [facility] [place] [facility] [address] [id number] [place] [address] Jul, [facility] [place] [facility] [address] [id number] [place] [address] Jun, [facility] [place] [facility] [address] [id number] [place] [address] Jun, [facility] [place] [facility] [address] [id number] [place] [address] Apr, [facility] [place] [facility] [address] [id number] [place] [address] Apr, [facility] [place] [facility] [address] [id number] [place] [address] Apr, [facility] [place] [facility] [address] [id number] [place] [address] Apr, [facility] [place] [facility] [address] [id number] [place] [address] Apr, [facility] [place] [facility] [address] [id number] [place] [address] Apr, [facility] [place] [facility] [address] [id number] [place] [address] Apr, [facility] [place] [facility] [address] [id number], [place] [address] Apr, [facility] [place] [facility] [address] [id number], [place] [address] Apr, [facility] [place] [facility] [address] [id number] [place] [address] Mar, [facility] [place] [facility] [address] [id number] [place] [address] Mar, [facility] [place] [facility] [address] [id number] [place] [address] Mar, [facility] [place] [facility] [address], [place] [address] Mar, [facility] [address], [place] [address] Mar, [facility] [address], [place] [address] Mar, [facility] [address], [place] [address] Feb, [facility] [address], [place] [address] Feb, [facility] [address], [place] [address] Feb, [facility] [address], [place] [address] Feb, [facility] [id number] [address] Feb, [facility] [id number] [place] [address] Feb, [facility] [id number] [place] [address] Feb, IMMUNIZATIONS No Known Immunizations SOCIAL HISTORY Never Assessed REASON FOR VISIT EMR-[facility] [place]AN OF CARE VITAL SIGNS MEDICATIONS Unknown Medications RESULTS No Results PROCEDURES No Known procedures INSTRUCTIONS MEDICATIONS ADMINISTERED No Known Medications MEDICAL (GENERAL) HISTORY Type Description Date Hospitalization History [facility] [place]- Left leg redness 04/26/2017
--- OUTSIDE RECORDS SUMMARY | 2019-01-03 12:53 | XMS REPORT ---
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 Name Role Phone Migration, Doctor Unavailable Unavailable PROBLEMS Type Condition ICD9-CM Code AUJ42-CI Code Onset Dates Condition Status SNOMED Code Problem Difficulty in walking, not elsewhere classified R26.2 Active 291972731 Problem Muscle weakness (generalized) M62.81 Active 19282637 Problem Age-related osteoporosis without current pathological fracture M81.0 Active 73312539 Problem Other hereditary and idiopathic neuropathies G60.8 Active 208778640 Problem Other chronic pain G89.29 Active 54223256 Problem Essential (primary) hypertension I10 Active 61395546 Problem Morbid (severe) obesity due to excess calories E66.01 Active 847831080 Problem Benign prostatic hyperplasia with lower urinary tract symptoms, symptom details unspecified N40.1 Active 857134011 Problem Right foot drop M21.371 Active [id number] Problem Type 2 diabetes mellitus without complication, without long-term current use of insulin E11.9 Active 262276256 Problem Type 2 diabetes mellitus with diabetic neuropathy, unspecified E11.40 Active 52182327 Problem 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 Active 429062010 Problem Type 2 diabetes mellitus with hyperglycemia E11.65 Active 22025331 Problem Allergic rhinitis, unspecified seasonality, unspecified trigger J30.9 Active 38553922 Problem Hyperlipidemia, unspecified hyperlipidemia type E78.5 Active 23267679 Problem Insomnia, unspecified type G47.00 Active 986632668 Problem Constipation, unspecified constipation type K59.00 Active 89264330 Problem USP current use of insulin Z79.4 Active 306439141 ALLERGIES No Information ENCOUNTERS Encounter Location Date Diagnosis [facility] [place] [facility] [address] [facility] [id number] [address] Aug, [facility] [place] [facility] [address] [facility] [id number] [address] Aug, Urinary tract infection without hematuria, site unspecified N39.0 [facility] [address] [place] [id number] Aug, Left leg swelling M79.89 [facility] [place] [facility] [address] [address] Jul, [facility] [place] [facility] [id number] [place] [address] Jul, USP current use of insulin Z79.4 and Type 2 diabetes mellitus with hyperglycemia E11.65 [facility] [id number] [place] [address] Jun, [facility] [address] [place] [id number] Jun, Left elbow pain M25.522 [facility] [address] [place] [id number] Jun, Abrasion foot/toe S90.819A and Type 2 diabetes mellitus with diabetic neuropathy, unspecified E11.40 [facility] [address] [place] [id number] Apr, Cellulitis of toe of left foot L03.032 [facility] [id number] [place] [address] Mar, Extremity cyanosis R23.0 [facility] [address] [place] [id number] Feb, Type 2 diabetes mellitus with diabetic neuropathy, unspecified E11.40 ; 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 and Abrasion foot/toe S90.819A [facility] [address] [address] Feb, [facility] [address] [address] Jun, [place] [id number] [place] [address] Sep, [facility] [place] [facility] [address] [address] Feb, [facility] [address] [id number] [address] Dec, [facility] [place] [facility] [address] [id number], [place] [address] Nov, [facility] [place] [facility] [address] [address] Nov, [facility] [address] [place] [id number] October, Diabetes 250.00 [facility] [place] [facility] [address] [id number], [place] [address] October, [facility] [place] [facility] [address] [id number], [place] [address] Sep, [facility] [place] [facility] [address] [address] Sep, [facility] [place] [facility] [address] [address] Jul, [facility] [place] [facility] [address] [address] Jul, [facility] [place] [facility] [address] [address] Jul, [facility] [address] [place] [id number] Jul, [facility] [place] [facility] [id number] [address] Jul, [facility] [place] [facility] [address] [id number] [address] Jul, [facility] [address] [place] [id number] Jul, [facility] [place] [facility] [address] [id number] [address] Jun, [facility] [place] [facility] [address] [id number] [address] Jun, [facility] [address] [place] [id number] 14 Jun, 2014 [facility] [address] [id number] [place] [address] Jun, [facility] [place] [facility] [address] [id number] [place] [address] Jun, [facility] [address] [id number] [place] [address] Jun, [facility] [place] [facility] [address] [id number] [place] [address] Jun, [facility] [address] [id number] [place] [address] Jun, [facility] [place] [facility] [address] [id number] [place] [address] Jun, [facility] [address] [id number] [place] [address] Jun, [facility] [place] [facility] [address] [id number] [place] [address] May, [facility] [place] [facility] [address] [id number] [place] [address] May, [facility] [place] [facility] [address] [facility] [id number] [place] [address] May, [facility] [place] [facility] [address] [id number] [place] [address] May, [facility] [place] [facility] [address] [id number] [place] [address] May, [facility] [place] [facility] [address] [id number] [place] [address] Apr, [facility] [place] [facility] [address] [id number] [place] [address] Apr, [facility] [place] [facility] [address] [facility] [id number] [place] [address] Apr, [facility] [place] [facility] [address] [id number] [place] [address] Mar, [facility] [place] [facility] [address] [id number] [place] [address] Mar, [facility] [place] [facility] [address] [id number] [place] [address] Mar, [facility] [place] [facility] [address] [id number] [place] [address] Mar, [facility] [place] [facility] [address] [id number] [place] [address] Mar, [facility] [place] [facility] [address] [id number] [place] [address] Mar, [facility] [place] [facility] [address] [id number] [place] [address] Mar, [facility] [place] [facility] [address] [id number] [place] [address] Mar, [facility] [place] [facility] [address] [id number] [place] [address] Mar, [facility] [place] [facility] [address] [id number] [place] [address] Mar, [facility] [place] [facility] [address] [id number] [place] [address] Mar, [facility] [place] [facility] [address] [id number] [place] [address] Mar, [facility] [place] [facility] [address] [id number] [place] [address] Mar, [facility] [place] [facility] [address] [id number] [place] [address] Mar, [facility] [place] [facility] [address] [id number] [place] [address] Feb, [facility] [place] [facility] [address] [id number] [place] [address] Jan, [facility] [place] [facility] [address] [id number] [place] [address] Jan, [facility] [place] [facility] [address] [id number] [place] [address] Jan, [facility] [place] [facility] [address] [id number] [place] [address] Jan, [facility] [place] [facility] [address] [id number] [place] [address] Jan, [facility] [place] [facility] [address] [id number] [place] [address] Jan, [facility] [place] [facility] [address] [id number] [place] [address] Dec, [facility] [place] [facility] [address] [id number] [place] [address] Dec, [facility] [place] [facility] [address] [id number] [place] [address] Dec, [facility] [place] [facility] [address] [id number] [place] [address] Dec, [facility] [place] [facility] [address] [id number] [place] [address] Dec, [facility] [place] [facility] [address] [id number] [place] [address] Dec, [facility] [place] [facility] [address] [id number] [place] [address] Dec, [facility] [place] [facility] [address] [id number] [place] [address] Dec, [facility] [place] [facility] [address] [id number] [place] [address] Dec, [facility] [place] [facility] [address] [id number] [place] [address] Dec, [facility] [place] [facility] [address] [id number] [place] [address] Nov, [facility] [address] [id number] [place] [address] Nov, [facility] [place] [facility] [address] [id number] [place] [address] October, [facility] [address] [id number] [place] [address] October, [facility] [place] [facility] [address] [id number] [place] [address] October, [facility] [address] [id number] [place] [address] October, [facility] [address] [id number] [place] [address] October, [facility] [address] [id number] [place] [address] October, [facility] [address] [id number] [place] [address] October, [facility] [place] [facility] [address] [id number] [place] [address] October, [facility] [address] [id number] [place] [address] October, [facility] [place] [facility] [address] [id number] [place] [address] October, [facility] [place] [facility] [address] [id number] [place] [address] October, [facility] [place] [facility] [address] [id number] [place] [address] October, [facility] [place] [facility] [address] [id number] [place] [address] October, [facility] [place] [facility] [address] [id number] [place] [address] October, [facility] [place] [facility] [address] [id number] [place] [address] October, [facility] [place] [facility] [address] [id number] [place] [address] October, [facility] [place] [facility] [address] [id number] [place] [address] Sep, [facility] [place] [facility] [address] [id number] [place] [address] Sep, [facility] [place] [facility] [address] [id number] [place] [address] Aug, [facility] [place] [facility] [address] [id number] [place] [address] Aug, [facility] [place] [facility] [address] [id number] [place] [address] Aug, [facility] [place] [facility] [address] [id number] [place] [address] Aug, [facility] [place] [facility] [address] [id number] [place] [address] Aug, [facility] [place] [facility] [address] [id number] [place] [address] Aug, [facility] [place] [facility] [address] [id number] [place] [address] Jul, [facility] [place] [facility] [address] [id number] [place] [address] Jul, [facility] [place] [facility] [address] [id number] [place] [address] Jul, [facility] [place] [facility] [address] [id number] [place] [address] Jul, [facility] [place] [facility] [address] [id number] [place] [address] Jul, [facility] [place] [facility] [address] [id number] [place] [address] Jul, [facility] [place] [facility] [address] [id number] [place] [address] Jul, [facility] [place] [facility] [address] [id number] [place] [address] Jul, [facility] [place] [facility] [address] [id number] [place] [address] Jul, [facility] [place] [facility] [address] [id number] [place] [address] Jul, [facility] [place] [facility] [address] [id number] [place] [address] Jul, [facility] [place] [facility] [address] [id number] [place] [address] Jul, [facility] [place] [facility] [address] [id number] [place] [address] Jul, [facility] [place] [facility] [address] [id number] [place] [address] Jun, [facility] [place] [facility] [address] [id number] [place] [address] Jun, [facility] [place] [facility] [address] [facility] [id number] [place] [address] Jun, [facility] [place] [facility] [address] [id number] [place] [address] Jun, [facility] [place] [facility] [address] [id number] [place] [address] Jun, [facility] [place] [facility] [address] [id number] [place] [address] Jun, [facility] [place] [facility] [address] [id number] [place] [address] Jun, [facility] [place] [facility] [address] [id number] [place] [address] Jun, [facility] [address] [id number] [place] [address] Jun, [facility] [place] [facility] [address] [id number] [place] [address] Jun, [facility] [place] [facility] [address] [id number] [place] [address] Jun, [facility] [place] [facility] [address] [id number] [place] [address] Jun, [facility] [place] [facility] [address] [id number] [place] [address] Jun, [facility] [place] [facility] [address] [id number] [place] [address] May, [facility] [place] [facility] [address] [id number] [place] [address] May, [facility] [place] [facility] [address] [id number], [place] [address] May, [facility] [place] [facility] [address] [id number] [place] [address] May, [facility] [place] [facility] [address] [id number], [place] [address] Apr, [facility] [place] [facility] [address] [id number], [place] [address] Apr, [facility] [place] [facility] [address] [id number], [place] [address] Apr, [facility] [place] [facility] [address] [id number] [place] [address] Apr, [facility] [place] [facility] [address] [id number], [place] [address] Apr, [facility] [place] [facility] [address] [id number] [place] [address] Apr, [facility] [place] [facility] [address] [id number] [place] [address] 08 Apr, 2012 [facility] [place] [facility] [address] [id number] [place] [address] 08 Apr, 2012 [facility] [place] [facility] [address] [id number] [place] [address] 07 Apr, 2012 [facility] [place] [facility] [address] [id number] [place] [address] 07 Apr, 2012 [facility] [place] [facility] [address] [id number] [place] [address] 07 Apr, 2012 [facility] [place] [facility] [address] [id number] [place] [address] 07 Apr, 2012 [facility] [place] [facility] [address] [id number] [place] [address] 06 Apr, 2012 [facility] [place] [facility] [address] [id number] [place] [address] 06 Apr, 2012 [facility] [place] [facility] [address] [id number] [place] [address] 06 Apr, 2012 [facility] [place] [facility] [address] [id number] [place] [address] 06 Apr, 2012 [facility] [place] [facility] [address] [facility] [id number] [place] [address] 30 Mar, 2013 [facility] [place] [facility] [address] [id number] [place] [address] 30 Mar, 2012 [facility] [place] [facility] [address] [id number], [place] [address] 16 Mar, 2012 [facility] [place] [facility] [address] [id number] [place] [address] 16 Mar, 2012 [facility] [place] [facility] [address] [id number] [place] [address] 14 Mar, 2012 [facility] [place] [facility] [address] [facility] [id number], [place] [address] 14 Mar2012 [facility] [place] [facility] [address] [id number] [place] [address] Mar, [facility] [place] [facility] [address] [id number] [place] [address] Mar, [facility] [place] [facility] [address] [id number] [place] [address] Mar, [facility] [place] [facility] [address] [id number] [place] [address] Feb, [facility] [place] [facility] [address] [id number] [place] [address] Feb, [facility] [place] [facility] [address] [id number] [place] [address] Feb, [facility] [place] [facility] [address] [id number] [place] [address] Feb, [facility] [place] [facility] [address] [id number] [place] [address] Jan, [facility] [place] [facility] [address] [id number] [place] [address] Jan, [facility] [place] [facility] [address] [id number] [place] [address] Jan, [facility] [place] [facility] [address] [id number] [place] [address] Jan, [facility] [place] [facility] [address] [id number] [place] [address] Jan, [facility] [place] [facility] [address] [id number] [place] [address] Dec, [facility] [place] [facility] [address] [id number] [place] [address] Dec, [facility] [place] [facility] [address] [id number] [place] [address] Jul, [facility] [place] [facility] [address] [id number] [place] [address] Jul, [facility] [place] [facility] [address] [id number] [place] [address] Jul, [facility] [place] [facility] [address] [id number] [place] [address] Jun, [facility] [place] [facility] [address] [id number] [place] [address] Jun, [facility] [place] [facility] [address] [id number] [place] [address] Apr, [facility] [place] [facility] [address] [id number] [place] [address] Apr, [facility] [place] [facility] [address] [id number] [place] [address] Apr, [facility] [place] [facility] [address] [id number] [place] [address] Apr, [facility] [place] [facility] [address] [id number] [place] [address] Apr, [facility] [place] [facility] [address] [id number] [place] [address] Apr, [facility] [place] [facility] [address] [id number] [place] [address] Apr, [facility] [place] [facility] [address] [id number], [place] [address] Apr, [facility] [place] [facility] [address] [id number] [address] Apr, [facility] [place] [facility] [address] [id number] [place] [address] Mar, [facility] [place] [facility] [address] [id number] [place] [address] Mar, [facility] [place] [facility] [address] [id number] [place] [address] Mar, [facility] [place] [facility] [id number] [address] Mar, [facility] [place] [facility] [id number] [address] Mar, [facility] [place] [facility] [id number] [address] Mar, [facility] [place] [facility] [id number] [address] Feb, [facility] [place] [facility] [id number] [address] Feb, [facility] [place] [facility] [id number] [address] Feb, [facility] [place] [facility] [id number] [address] Feb, [facility] [place] [facility] [id number] [address] Feb, [facility] [place] [facility] [id number] [address] Feb, [facility] [place] [facility] [id number] [address] Feb, IMMUNIZATIONS No Known Immunizations SOCIAL HISTORY Never Assessed REASON FOR VISIT EMR-[facility] PLAN OF CARE VITAL SIGNS MEDICATIONS Unknown Medications RESULTS No Results PROCEDURES No Known procedures INSTRUCTIONS MEDICATIONS ADMINISTERED No Known Medications MEDICAL (GENERAL) HISTORY Type Description Date Hospitalization History [facility]- Left leg redness 04/26/2017
--- OUTSIDE RECORDS SUMMARY | 2019-01-03 12:53 | XMS REPORT ---
Author Author Migration, Doctor Organization [facility] Address Unknown Phone Unavailable Care Team Providers Care Mobile Ui Designer Name Role Phone Migration, Doctor Unavailable Unavailable PROBLEMS Type Condition ICD9-CM Code GTQ70-DQ Code Onset Dates Condition Status SNOMED Code Problem Difficulty in walking, not elsewhere classified R26.2 Active 437116402 Problem Muscle weakness (generalized) M62.81 Active 20763366 Problem Age-related osteoporosis without current pathological fracture M81.0 Active 94422025 Problem Other hereditary and idiopathic neuropathies G60.8 Active 055144524 Problem Other chronic pain G89.29 Active 99554104 Problem Essential (primary) hypertension I10 Active 95034889 Problem Morbid (severe) obesity due to excess calories E66.01 Active 360481315 Problem Benign prostatic hyperplasia with lower urinary tract symptoms, symptom details unspecified N40.1 Active 174914636 Problem Right foot drop M21.371 Active [id number] Problem Type 2 diabetes mellitus without complication, without long-term current use of insulin E11.9 Active 476422042 Problem Type 2 diabetes mellitus with diabetic neuropathy, unspecified E11.40 Active 32406566 Problem 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 Active 334134422 Problem Type 2 diabetes mellitus with hyperglycemia E11.65 Active 92073942 Problem Allergic rhinitis, unspecified seasonality, unspecified trigger J30.9 Active 75903039 Problem Hyperlipidemia, unspecified hyperlipidemia type E78.5 Active 93370707 Problem Insomnia, unspecified type G47.00 Active 432681597 Problem Constipation, unspecified constipation type K59.00 Active 14816445 Problem custodial current use of insulin Z79.4 Active 099670918 ALLERGIES No Information ENCOUNTERS Encounter Location Date Diagnosis [facility] [address] [facility] [id number] [address] Aug, [facility] [address] [facility] [id number] [place] [address] Aug, Urinary tract infection without hematuria, site unspecified N39.0 [facility] [address] [place], [place] [id number] Aug, Left leg swelling M79.89 [facility] [address] [address] Jul, [facility] [id number] [place] [address] Jul, custodial current use of insulin Z79.4 and Type 2 diabetes mellitus with hyperglycemia E11.65 [facility] [address] [place] [address] [id number] [place] [address] Jun, [facility] [address] [place] [id number] Jun, Left elbow pain M25.522 [facility] [address] [place] [id number] Jun, Abrasion foot/toe S90.819A and Type 2 diabetes mellitus with diabetic neuropathy, unspecified E11.40 [facility] [address] [place] [id number] Apr, Cellulitis of toe of left foot L03.032 [facility] [address] [place] [address] Mar, Extremity cyanosis R23.0 [facility] [address] [place] [id number] Feb, Type 2 diabetes mellitus with diabetic neuropathy, unspecified E11.40 ; emt intermediate current use of insulin Z79.4 and Abrasion foot/toe S90.819A [facility] [address] [address] Feb, [facility] [address] [address] Jun, [facility] [address] [address] [id number] [place] [address] Sep, [facility] [address] [address] Feb, [facility] [address] [id number] [address] Dec, [facility] [address] [id number] [address] Nov, [facility] [address] [address] Nov, [facility] [address] [place] [id number] October, Diabetes 250.00 [facility] [address] [id number] [address] October, [facility] [address] [id number] [address] Sep, [facility] [address] [address] Sep, [facility] [address] [address] Jul, [facility] [address] [address] Jul, [facility] [address] [address] Jul, [facility] [address] [id number] Jul, [facility] [id number] [address] Jul, [facility] [address] [id number] [address] Jul, [facility] [address] [id number] Jul, [facility] [address] [id number] [address] Jun, [facility] [address] [id number] [address] Jun, [facility] [address] [id number] Jun, 2014 [facility] [address] [id number] [place] [address] Jun, [facility] [place] [facility] [address] [id number] [place] [address] Jun, [facility] [address] [id number] [place] [address] Jun, [facility] [place] [facility] [address] [id number] [place] [address] Jun, [facility] [address] [id number] [place] [address] Jun, [facility] [place] [facility] [address] [id number] [place] [address] Jun, [facility] [address] [id number] [place] [address] Jun, [facility] [place] [facility] [address] [id number] [place] [address] May, [facility] [place] [facility] [address] [id number] [place] [address] May, [facility] [place] [facility] [address] [facility] [id number] [place] [address] May, [facility] [place] [facility] [address] [id number] [place] [address] May, [facility] [place] [facility] [address] [id number] [place] [address] May, [facility] [place] [facility] [address] [id number] [place] [address] Apr, [facility] [place] [facility] [address] [id number] [place] [address] Apr, [facility] [place] [facility] [address] [facility] [id number] [place] [address] Apr, [facility] [place] [facility] [address] [id number] [place] [address] Mar, [facility] [place] [facility] [address] [id number] [place] [address] Mar, [facility] [place] [facility] [address] [id number] [place] [address] Mar, [facility] [place] [facility] [address] [id number] [place] [address] Mar, [facility] [place] [facility] [address] [id number] [place] [address] Mar, [facility] [place] [facility] [address] [id number] [place] [address] Mar, [facility] [place] [facility] [address] [id number] [place] [address] Mar, [facility] [place] [facility] [address] [id number] [place] [address] Mar, [facility] [place] [facility] [address] [id number] [place] [address] Mar, [facility] [place] [facility] [address] [id number] [place] [address] Mar, [facility] [place] [facility] [address] [id number] [place] [address] Mar, [facility] [place] [facility] [address] [id number] [place] [address] Mar, [facility] [place] [facility] [address] [id number] [place] [address] Mar, [facility] [place] [facility] [address] [id number] [place] [address] Mar, [facility] [place] [facility] [address] [id number] [place] [address] Feb, [facility] [place] [facility] [address] [id number] [place] [address] Jan, [facility] [place] [facility] [address] [id number] [place] [address] Jan, [facility] [place] [facility] [address] [id number] [place] [address] Jan, [facility] [place] [facility] [address] [id number] [place] [address] Jan, [facility] [place] [facility] [address] [id number] [place] [address] Jan, [facility] [place] [facility] [address] [id number] [place] [address] Jan, [facility] [place] [facility] [address] [id number] [place] [address] Dec, [facility] [place] [facility] [address] [id number] [place] [address] Dec, [facility] [place] [facility] [address] [id number] [place] [address] Dec, [facility] [place] [facility] [address] [id number] [place] [address] Dec, [facility] [place] [facility] [address] [id number] [place] [address] Dec, [facility] [place] [facility] [address] [id number] [place] [address] Dec, [facility] [place] [facility] [address] [id number] [place] [address] Dec, [facility] [place] [facility] [address] [id number] [place] [address] Dec, [facility] [place] [facility] [address] [id number] [place] [address] Dec, [facility] [place] [facility] [address] [id number] [place] [address] Dec, [facility] [place] [facility] [address] [id number] [place] [address] Nov, [facility] [address] [id number] [place] [address] Nov, [facility] [place] [facility] [address] [id number] [place] [address] October, [facility] [address] [id number] [place] [address] October, [facility] [place] [facility] [address] [id number] [place] [address] October, [facility] [address] [id number] [place] [address] October, [facility] [address] [id number] [place] [address] October, [facility] [address] [id number] [place] [address] October, [facility] [address] [id number] [place] [address] October, [facility] [place] [facility] [address] [id number] [place] [address] October, [facility] [address] [id number] [place] [address] October, [facility] [place] [facility] [address] [id number] [place] [address] October, [facility] [place] [facility] [address] [id number] [place] [address] October, [facility] [place] [facility] [address] [id number] [place] [address] October, [facility] [place] [facility] [address] [id number] [place] [address] October, [facility] [place] [facility] [address] [id number] [place] [address] October, [facility] [place] [facility] [address] [id number] [place] [address] October, [facility] [place] [facility] [address] [id number] [place] [address] October, [facility] [place] [facility] [address] [id number] [place] [address] Sep, [facility] [place] [facility] [address] [id number] [place] [address] Sep, [facility] [place] [facility] [address] [id number] [place] [address] Aug, [facility] [place] [facility] [address] [id number] [place] [address] Aug, [facility] [place] [facility] [address] [id number] [place] [address] Aug, [facility] [place] [facility] [address] [id number] [place] [address] Aug, [facility] [place] [facility] [address] [id number] [place] [address] Aug, [facility] [place] [facility] [address] [id number] [place] [address] Aug, [facility] [place] [facility] [address] [id number] [place] [address] Jul, [facility] [place] [facility] [address] [id number] [place] [address] Jul, [facility] [place] [facility] [address] [id number] [place] [address] Jul, [facility] [place] [facility] [address] [id number] [place] [address] Jul, [facility] [place] [facility] [address] [id number] [place] [address] Jul, [facility] [place] [facility] [address] [id number] [place] [address] Jul, [facility] [place] [facility] [address] [id number] [place] [address] Jul, [facility] [place] [facility] [address] [id number] [place] [address] Jul, [facility] [place] [facility] [address] [id number] [place] [address] Jul, [facility] [place] [facility] [address] [id number] [place] [address] Jul, [facility] [place] [facility] [address] [id number] [place] [address] Jul, [facility] [place] [facility] [address] [id number] [place] [address] Jul, [facility] [place] [facility] [address] [id number] [place] [address] Jul, [facility] [place] [facility] [address] [id number] [place] [address] Jun, [facility] [place] [facility] [address] [id number] [place] [address] Jun, [facility] [place] [facility] [address] [facility] [id number] [place] [address] Jun, [facility] [place] [facility] [address] [id number] [place] [address] Jun, [facility] [place] [facility] [address] [id number] [place] [address] Jun, [facility] [place] [facility] [address] [id number] [place] [address] Jun, [facility] [place] [facility] [address] [id number] [place] [address] Jun, [facility] [place] [facility] [address] [id number] [place] [address] Jun, [facility] [address] [id number] [place] [address] Jun, [facility] [place] [facility] [address] [id number] [place] [address] Jun, [facility] [place] [facility] [address] [id number] [place] [address] Jun, [facility] [place] [facility] [address] [id number] [place] [address] Jun, [facility] [place] [facility] [address] [id number] [place] [address] Jun, [facility] [place] [facility] [address] [id number] [place] [address] May, [facility] [place] [facility] [address] [id number] [place] [address] May, [facility] [place] [facility] [address] [id number] [place] [address] May, [facility] [place] [facility] [address] [id number] [place] [address] May, [facility] [place] [facility] [address] [id number] [place] [address] Apr, [facility] [place] [facility] [address] [id number] [place] [address] Apr, [facility] [place] [facility] [address] [id number] [place] [address] Apr, [facility] [place] [facility] [address] [id number] [place] [address] Apr, [facility] [place] [facility] [address] [id number] [place] [address] Apr, [facility] [place] [facility] [address] [id number] [place] [address] Apr, [facility] [place] [facility] [address] [id number] [place] [address] 08 Apr, 2012 [facility] [place] [facility] [address] [id number] [place] [address] 08 Apr, 2012 [facility] [place] [facility] [address] [id number] [place] [address] 07 Apr, 2012 [facility] [place] [facility] [address] [id number] [place] [address] 07 Apr, 2012 [facility] [place] [facility] [address] [id number] [place] [address] 07 Apr, 2012 [facility] [place] [facility] [address] [id number] [place] [address] 07 Apr, 2012 [facility] [place] [facility] [address] [id number] [place] [address] 06 Apr, 2012 [facility] [place] [facility] [address] [id number] [place] [address] 06 Apr, 2012 [facility] [place] [facility] [address] [id number] [place] [address] 06 Apr, 2012 [facility] [place] [facility] [address] [id number] [place] [address] 06 Apr, 2012 [facility] [place] [facility] [address] [facility] [id number] [place] [address] 30 Mar, 2013 [facility] [place] [facility] [address] [id number] [place] [address] 30 Mar, 2012 [facility] [place] [facility] [address] [id number] [place] [address] 16 Mar, 2012 [facility] [place] [facility] [address] [id number] [place] [address] 16 Mar, 2012 [facility] [place] [facility] [address] [id number] [place] [address] 14 Mar, 2012 [facility] [place] [facility] [address] [facility] [id number] [place] [address] 14 Mar2012 [facility] [place] [facility] [address] [id number] [place] [address] Mar, [facility] [place] [facility] [address] [id number] [place] [address] Mar, [facility] [place] [facility] [address] [id number] [place] [address] Mar, [facility] [place] [facility] [address] [id number] [place] [address] Feb, [facility] [place] [facility] [address] [id number] [place] [address] Feb, [facility] [place] [facility] [address] [id number] [place] [address] Feb, [facility] [place] [facility] [address] [id number] [place] [address] Feb, [facility] [place] [facility] [address] [id number] [place] [address] Jan, [facility] [place] [facility] [address] [id number] [place] [address] Jan, [facility] [place] [facility] [address] [id number] [place] [address] Jan, [facility] [place] [facility] [address] [id number] [place] [address] Jan, [facility] [place] [facility] [address] [id number] [place] [address] Jan, [facility] [place] [facility] [address] [id number] [place] [address] Dec, [facility] [place] [facility] [address] [id number] [place] [address] Dec, [facility] [place] [facility] [address] [id number] [place] [address] Jul, [facility] [place] [facility] [address] [id number] [place] [address] Jul, [facility] [place] [facility] [address] [id number] [place] [address] Jul, [facility] [place] [facility] [address] [id number] [place] [address] Jun, [facility] [place] [facility] [address] [id number] [place] [address] Jun, [facility] [place] [facility] [address] [id number] [place] [address] Apr, [facility] [place] [facility] [address] [id number] [place] [address] Apr, [facility] [place] [facility] [address] [id number] [place] [address] Apr, [facility] [place] [facility] [address] [id number] [place] [address] Apr, [facility] [place] [facility] [address] [id number] [place] [address] Apr, [facility] [place] [facility] [address] [id number] [place] [address] Apr, [facility] [place] [facility] [address] [id number] [place] [address] Apr, [facility] [place] [facility] [address] [id number] [address] Apr, [facility] [place] [facility] [address] [id number] [address] Apr, [facility] [place] [facility] [address] [id number] [place] [address] Mar, [facility] [place] [facility] [address] [id number] [place] [address] Mar, [facility] [place] [facility] [address] [id number] [place] [address] Mar, [facility] [place] [facility] [id number] [address] Mar, [facility] [id number] [address] Mar, [facility] [id number] [address] Mar, [facility] [id number] [address] Feb, [facility] [id number] [address] Feb, [facility] [id number] [address] Feb, [facility] [id number] [address] Feb, [facility] [id number] [address] Feb, [facility] [id number] [address] Feb, [facility] [id number] [address] Feb, IMMUNIZATIONS No Known Immunizations SOCIAL HISTORY Never Assessed REASON FOR VISIT E[place] [place] C[place] VITAL SIGNS MEDICATIONS Unknown Medications RESULTS No Results PROCEDURES No Known procedures INSTRUCTIONS MEDICATIONS ADMINISTERED No Known Medications MEDICAL (GENERAL) HISTORY Type Description Date Hospitalization History [facility] [place]- Left leg redness 04/26/2017
--- OUTSIDE RECORDS SUMMARY | 2019-01-03 12:53 | XMS REPORT ---
Author Author Migration, Doctor Organization [facility] Address Unknown Phone Unavailable Care Team Providers Care Analytical Technician Name Role Phone Migration, Doctor Unavailable Unavailable PROBLEMS Type Condition ICD9-CM Code OYA79-AR Code Onset Dates Condition Status SNOMED Code Problem Difficulty in walking, not elsewhere classified R26.2 Active 320651329 Problem Muscle weakness (generalized) M62.81 Active 24099910 Problem Age-related osteoporosis without current pathological fracture M81.0 Active 29187116 Problem Other hereditary and idiopathic neuropathies G60.8 Active 213318141 Problem Other chronic pain G89.29 Active 12536365 Problem Essential (primary) hypertension I10 Active 14272780 Problem Morbid (severe) obesity due to excess calories E66.01 Active 695194208 Problem Benign prostatic hyperplasia with lower urinary tract symptoms, symptom details unspecified N40.1 Active 250465647 Problem Right foot drop M21.371 Active [id number] Problem Type 2 diabetes mellitus without complication, without long-term current use of insulin E11.9 Active 577001917 Problem Type 2 diabetes mellitus with diabetic neuropathy, unspecified E11.40 Active 74334969 Problem 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 Active 236256255 Problem Type 2 diabetes mellitus with hyperglycemia E11.65 Active 36588043 Problem Allergic rhinitis, unspecified seasonality, unspecified trigger J30.9 Active 17646513 Problem Hyperlipidemia, unspecified hyperlipidemia type E78.5 Active 88806429 Problem Insomnia, unspecified type G47.00 Active 046660515 Problem Constipation, unspecified constipation type K59.00 Active 41440933 Problem long-term current use of insulin Z79.4 Active [id number] ALLERGIES No Information ENCOUNTERS Encounter Location Date Diagnosis [facility] [address] [facility] [id number], [place] [address] Aug, [facility] [address] [facility] [id number], [place] [address] Aug, Urinary tract infection without hematuria, site unspecified N39.0 [facility] [address], [place] [id number] Aug, Left leg swelling M79.89 [facility] [address], [place] [address] Jul, [facility] [id number] [place] [address] Jul, long-term current use of insulin Z79.4 and Type 2 diabetes mellitus with hyperglycemia E11.65 [facility] [id number] [place] [address] Jun, [facility] [address] [id number] Jun, Left elbow pain M25.522 [facility] [address] [place] [id number] Jun, Abrasion foot/toe S90.819A and Type 2 diabetes mellitus with diabetic neuropathy, unspecified E11.40 [facility] [address] [place] [id number] Apr, Cellulitis of toe of left foot L03.032 [facility] [id number] [place] [address] Mar, Extremity cyanosis R23.0 [facility] [address] [place] [id number] Feb, Type 2 diabetes mellitus with diabetic neuropathy, unspecified E11.40 ; 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 and Abrasion foot/toe S90.819A [facility] [address], [place] [address] Feb, [facility] [address] [address] Jun, [facility] [address] [id number] [place] [address] Sep, [facility] [address] [address] Feb, [facility] [address] [id number] [address] Dec, [facility] [address] [id number], [place] [address] Nov, [facility] [address], [place] [address] Nov, [facility] [address] [place] [id number] October, Diabetes 250.00 [facility] [address] [id number], [place] [address] October, [facility] [address] [id number], [place] [address] Sep, [facility] [address], [place] [address] Sep, [facility] [address], [place] [address] Jul, [facility] [address], [place] [address] Jul, [facility] [address], [place] [address] Jul, [facility] [address] [id number] Jul, [facility] [id number], [place] [address] Jul, [facility] [id number], [place] [address] Jul, [facility] [address] [id number] Jul, [facility] [address] [id number], [place] [address] Jun, [facility] [address] [id number], [place] [address] Jun, [facility] [address] [id number] 14 Jun, 2014 [facility] [address] [id number] [place] [address] Jun, [facility] [place] [facility] [address] [id number] [place] [address] Jun, [facility] [address] [id number] [place] [address] Jun, [facility] [place] [facility] [address] [id number] [place] [address] Jun, [facility] [address] [id number] [place] [address] Jun, [facility] [place] [facility] [address] [id number] [place] [address] Jun, [facility] [address] [id number] [place] [address] Jun, [facility] [place] [facility] [address] [id number] [place] [address] May, [facility] [place] [facility] [address] [id number] [place] [address] May, [facility] [place] [facility] [address] [facility] [id number] [place] [address] May, [facility] [place] [facility] [address] [id number] [place] [address] May, [facility] [place] [facility] [address] [id number] [place] [address] May, [facility] [place] [facility] [address] [id number] [place] [address] Apr, [facility] [place] [facility] [address] [id number] [place] [address] Apr, [facility] [place] [facility] [address] [facility] [id number] [place] [address] Apr, [facility] [place] [facility] [address] [id number] [place] [address] Mar, [facility] [place] [facility] [address] [id number] [place] [address] Mar, [facility] [place] [facility] [address] [id number] [place] [address] Mar, [facility] [place] [facility] [address] [id number] [place] [address] Mar, [facility] [place] [facility] [address] [id number] [place] [address] Mar, [facility] [place] [facility] [address] [id number] [place] [address] Mar, [facility] [place] [facility] [address] [id number] [place] [address] Mar, [facility] [place] [facility] [address] [id number] [place] [address] Mar, [facility] [place] [facility] [address] [id number] [place] [address] Mar, [facility] [place] [facility] [address] [id number] [place] [address] Mar, [facility] [place] [facility] [address] [id number] [place] [address] Mar, [facility] [place] [facility] [address] [id number] [place] [address] Mar, [facility] [place] [facility] [address] [id number] [place] [address] Mar, [facility] [place] [facility] [address] [id number] [place] [address] Mar, [facility] [place] [facility] [address] [id number] [place] [address] Feb, [facility] [place] [facility] [address] [id number] [place] [address] Jan, [facility] [place] [facility] [address] [id number] [place] [address] Jan, [facility] [place] [facility] [address] [id number] [place] [address] Jan, [facility] [place] [facility] [address] [id number] [place] [address] Jan, [facility] [place] [facility] [address] [id number] [place] [address] Jan, [facility] [place] [facility] [address] [id number] [place] [address] Jan, [facility] [place] [facility] [address] [id number] [place] [address] Dec, [facility] [place] [facility] [address] [id number] [place] [address] Dec, [facility] [place] [facility] [address] [id number] [place] [address] Dec, [facility] [place] [facility] [address] [id number] [place] [address] Dec, [facility] [place] [facility] [address] [id number] [place] [address] Dec, [facility] [place] [facility] [address] [id number] [place] [address] Dec, [facility] [place] [facility] [address] [id number] [place] [address] Dec, [facility] [place] [facility] [address] [id number] [place] [address] Dec, [facility] [place] [facility] [address] [id number] [place] [address] Dec, [facility] [place] [facility] [address] [id number] [place] [address] Dec, [facility] [place] [facility] [address] [id number] [place] [address] Nov, [facility] [address] [id number] [place] [address] Nov, [facility] [place] [facility] [address] [id number] [place] [address] October, [facility] [address] [id number] [place] [address] October, [facility] [place] [facility] [address] [id number] [place] [address] October, [facility] [address] [id number] [place] [address] October, [facility] [address] [id number] [place] [address] October, [facility] [address] [id number] [place] [address] October, [facility] [address] [id number] [place] [address] October, [facility] [place] [facility] [address] [id number] [place] [address] October, [facility] [address] [id number] [place] [address] October, [facility] [place] [facility] [address] [id number] [place] [address] October, [facility] [place] [facility] [address] [id number] [place] [address] October, [facility] [place] [facility] [address] [id number] [place] [address] October, [facility] [place] [facility] [address] [id number] [place] [address] October, [facility] [place] [facility] [address] [id number] [place] [address] October, [facility] [place] [facility] [address] [id number] [place] [address] October, [facility] [place] [facility] [address] [id number] [place] [address] October, [facility] [place] [facility] [address] [id number] [place] [address] Sep, [facility] [place] [facility] [address] [id number] [place] [address] Sep, [facility] [place] [facility] [address] [id number] [place] [address] Aug, [facility] [place] [facility] [address] [id number] [place] [address] Aug, [facility] [place] [facility] [address] [id number] [place] [address] Aug, [facility] [place] [facility] [address] [id number] [place] [address] Aug, [facility] [place] [facility] [address] [id number] [place] [address] Aug, [facility] [place] [facility] [address] [id number] [place] [address] Aug, [facility] [place] [facility] [address] [id number] [place] [address] Jul, [facility] [place] [facility] [address] [id number] [place] [address] Jul, [facility] [place] [facility] [address] [id number] [place] [address] Jul, [facility] [place] [facility] [address] [id number] [place] [address] Jul, [facility] [place] [facility] [address] [id number] [place] [address] Jul, [facility] [place] [facility] [address] [id number] [place] [address] Jul, [facility] [place] [facility] [address] [id number] [place] [address] Jul, [facility] [place] [facility] [address] [id number] [place] [address] Jul, [facility] [place] [facility] [address] [id number] [place] [address] Jul, [facility] [place] [facility] [address] [id number] [place] [address] Jul, [facility] [place] [facility] [address] [id number] [place] [address] Jul, [facility] [place] [facility] [address] [id number] [place] [address] Jul, [facility] [place] [facility] [address] [id number] [place] [address] Jul, [facility] [place] [facility] [address] [id number] [place] [address] Jun, [facility] [place] [facility] [address] [id number] [place] [address] Jun, [facility] [place] [facility] [address] [facility] [id number] [place] [address] Jun, [facility] [place] [facility] [address] [id number] [place] [address] Jun, [facility] [place] [facility] [address] [id number] [place] [address] Jun, [facility] [place] [facility] [address] [id number] [place] [address] Jun, [facility] [place] [facility] [address] [id number] [place] [address] Jun, [facility] [place] [facility] [address] [id number] [place] [address] Jun, [facility] [address] [id number] [place] [address] Jun, [facility] [place] [facility] [address] [id number] [place] [address] Jun, [facility] [place] [facility] [address] [id number] [place] [address] Jun, [facility] [place] [facility] [address] [id number] [place] [address] Jun, [facility] [place] [facility] [address] [id number] [place] [address] Jun, [facility] [place] [facility] [address] [id number] [place] [address] May, [facility] [place] [facility] [address] [id number] [place] [address] May, [facility] [place] [facility] [address] [id number], [place] [address] May, [facility] [place] [facility] [address] [id number] [place] [address] May, [facility] [place] [facility] [address] [id number], [place] [address] Apr, [facility] [place] [facility] [address] [id number], [place] [address] Apr, [facility] [place] [facility] [address] [id number], [place] [address] Apr, [facility] [place] [facility] [address] [id number] [place] [address] Apr, [facility] [place] [facility] [address] [id number], [place] [address] Apr, [facility] [place] [facility] [address] [id number] [place] [address] Apr, [facility] [place] [facility] [address] [id number] [place] [address] 08 Apr, 2012 [facility] [place] [facility] [address] [id number] [place] [address] 08 Apr, 2012 [facility] [place] [facility] [address] [id number] [place] [address] 07 Apr, 2012 [facility] [place] [facility] [address] [id number] [place] [address] 07 Apr, 2012 [facility] [place] [facility] [address] [id number] [place] [address] 07 Apr, 2012 [facility] [place] [facility] [address] [id number] [place] [address] 07 Apr, 2012 [facility] [place] [facility] [address] [id number] [place] [address] 06 Apr, 2012 [facility] [place] [facility] [address] [id number] [place] [address] 06 Apr, 2012 [facility] [place] [facility] [address] [id number] [place] [address] 06 Apr, 2012 [facility] [place] [facility] [address] [id number] [place] [address] 06 Apr, 2012 [facility] [place] [facility] [address] [facility] [id number] [place] [address] 30 Mar, 2013 [facility] [place] [facility] [address] [id number] [place] [address] 30 Mar, 2012 [facility] [place] [facility] [address] [id number], [place] [address] 16 Mar, 2012 [facility] [place] [facility] [address] [id number] [place] [address] 16 Mar, 2012 [facility] [place] [facility] [address] [id number] [place] [address] 14 Mar, 2012 [facility] [place] [facility] [address] [facility] [id number], [place] [address] 14 Mar2012 [facility] [place] [facility] [address] [id number] [place] [address] Mar, [facility] [place] [facility] [address] [id number] [place] [address] Mar, [facility] [place] [facility] [address] [id number] [place] [address] Mar, [facility] [place] [facility] [address] [id number] [place] [address] Feb, [facility] [place] [facility] [address] [id number] [place] [address] Feb, [facility] [place] [facility] [address] [id number] [place] [address] Feb, [facility] [place] [facility] [address] [id number] [place] [address] Feb, [facility] [place] [facility] [address] [id number] [place] [address] Jan, [facility] [place] [facility] [address] [id number] [place] [address] Jan, [facility] [place] [facility] [address] [id number] [place] [address] Jan, [facility] [place] [facility] [address] [id number] [place] [address] Jan, [facility] [place] [facility] [address] [id number] [place] [address] Jan, [facility] [place] [facility] [address] [id number] [place] [address] Dec, [facility] [place] [facility] [address] [id number] [place] [address] Dec, [facility] [place] [facility] [address] [id number] [place] [address] Jul, [facility] [place] [facility] [address] [id number] [place] [address] Jul, [facility] [place] [facility] [address] [id number] [place] [address] Jul, [facility] [place] [facility] [address] [id number] [place] [address] Jun, [facility] [place] [facility] [address] [id number] [place] [address] Jun, [facility] [place] [facility] [address] [id number] [place] [address] Apr, [facility] [place] [facility] [address] [id number] [place] [address] Apr, [facility] [place] [facility] [address] [id number] [place] [address] Apr, [facility] [place] [facility] [address] [id number] [place] [address] Apr, [facility] [place] [facility] [address] [id number] [place] [address] Apr, [facility] [place] [facility] [address] [id number] [place] [address] Apr, [facility] [place] [facility] [address] [id number] [place] [address] Apr, [facility] [place] [facility] [address] [id number], [place] [address] Apr, [facility] [place] [facility] [address] [id number], [place] [address] Apr, [facility] [place] [facility] [address] [id number] [place] [address] Mar, [facility] [place] [facility] [address] [id number] [place] [address] Mar, [facility] [place] [facility] [address] [id number] [place] [address] Mar, [facility] [place] [facility] [address], [place] [address] Mar, [facility] [address], [place] [address] Mar, [facility] [address], [place] [address] Mar, [facility] [address], [place] [address] Feb, [facility] [address], [place] [address] Feb, [facility] [id number] [place] [address] Feb, [facility] [id number] [place] [address] Feb, [facility] [id number] [address] Feb, [facility] [id number] [address] Feb, [facility] [id number] [place] [address] Feb, IMMUNIZATIONS No Known Immunizations SOCIAL HISTORY Never Assessed [place] [place] VITAL SIGNS MEDICATIONS Unknown Medications RESULTS No Results PROCEDURES No Known procedures INSTRUCTIONS MEDICATIONS ADMINISTERED No Known Medications MEDICAL (GENERAL) HISTORY Type Description Date Hospitalization History [facility]- Left leg redness 04/26/2017
--- OUTSIDE RECORDS SUMMARY | 2019-01-03 12:54 | XMS REPORT ---
Author Author Migration, Doctor Organization [facility] Address Unknown Phone Unavailable Care Team Providers Care Director Of Perioperative Services Name Role Phone Migration, Doctor Unavailable Unavailable PROBLEMS Type Condition ICD9-CM Code JYL02-SP Code Onset Dates Condition Status SNOMED Code Problem Difficulty in walking, not elsewhere classified R26.2 Active 022880011 Problem Muscle weakness (generalized) M62.81 Active 83799652 Problem Age-related osteoporosis without current pathological fracture M81.0 Active 07143382 Problem Other hereditary and idiopathic neuropathies G60.8 Active 823324816 Problem Other chronic pain G89.29 Active 00164594 Problem Essential (primary) hypertension I10 Active 58652395 Problem Morbid (severe) obesity due to excess calories E66.01 Active 163069563 Problem Benign prostatic hyperplasia with lower urinary tract symptoms, symptom details unspecified N40.1 Active 636882684 Problem Right foot drop M21.371 Active [id number] Problem Type 2 diabetes mellitus without complication, without long-term current use of insulin E11.9 Active 653735729 Problem Type 2 diabetes mellitus with diabetic neuropathy, unspecified E11.40 Active 41467651 Problem 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 Active 541414403 Problem Type 2 diabetes mellitus with hyperglycemia E11.65 Active 35300176 Problem Allergic rhinitis, unspecified seasonality, unspecified trigger J30.9 Active 53834062 Problem Hyperlipidemia, unspecified hyperlipidemia type E78.5 Active 55015201 Problem Insomnia, unspecified type G47.00 Active 483935984 Problem Constipation, unspecified constipation type K59.00 Active 09933368 Problem MCC current use of insulin Z79.4 Active 903865579 ALLERGIES No Information ENCOUNTERS Encounter Location Date Diagnosis [facility] [address] [facility] [id number] [address] Aug, [facility] [address] [facility] [id number] [place] [address] Aug, Urinary tract infection without hematuria, site unspecified N39.0 [facility] [address] [place], [place] [id number] Aug, Left leg swelling M79.89 [facility] [address] [address] Jul, [facility] [id number] [place] [address] Jul, [facility] current use of insulin Z79.4 and Type 2 diabetes mellitus with hyperglycemia E11.65 [place] [id number] [place] [address] Jun, [facility] [address] [place] [id number] Jun, Left elbow pain M25.522 [facility] [address] [place] [id number] Jun, Abrasion foot/toe S90.819A and Type 2 diabetes mellitus with diabetic neuropathy, unspecified E11.40 [facility] [address] [place] [id number] Apr, Cellulitis of toe of left foot L03.032 [place] [id number] [place] [address] Mar, Extremity cyanosis R23.0 [facility] [address] [place] [id number] Feb, Type 2 diabetes mellitus with diabetic 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, unspecified E11.40 ; 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 and Abrasion foot/toe S90.819A [place] [address] [address] Feb, [place] [address] [address] Jun, [place] [address] [id number] [place] [address] Sep, [facility] [address] [address] Feb, [place] [address] [id number] [address] Dec, [facility] [address] [id number] [place] [address] Nov, [facility] [address] [address] Nov, [facility] [address] [id number] October, Diabetes 250.00 [facility] [address] [id number] [place] [address] October, [facility] [address] [id number] [address] Sep, [facility] [address] [address] Sep, [facility] [address] [address] Jul, [facility] [address] [address] Jul, [facility] [address] [address] Jul, [facility] [address] [id number] Jul, [facility] [id number] [address] Jul, [facility] [address] [id number] [address] Jul, [facility] [address] [id number] Jul, [facility] [address] [id number] [address] Jun, [facility] [address] [id number] [address] Jun, [facility] [address] [id number] 14 Jun, 2014 [facility] [address] [id number] [place] [address] Jun, [facility] [place] [facility] [address] [id number] [place] [address] Jun, [facility] [address] [id number] [place] [address] Jun, [facility] [place] [facility] [address] [id number] [place] [address] Jun, [facility] [address] [id number] [place] [address] Jun, [facility] [place] [facility] [address] [id number] [place] [address] Jun, [facility] [address] [id number] [place] [address] Jun, [facility] [place] [facility] [address] [id number] [place] [address] May, [facility] [place] [facility] [address] [id number] [place] [address] May, [facility] [place] [facility] [address] [facility] [id number] [place] [address] May, [facility] [place] [facility] [address] [id number] [place] [address] May, [facility] [place] [facility] [address] [id number] [place] [address] May, [facility] [place] [facility] [address] [id number] [place] [address] Apr, [facility] [place] [facility] [address] [id number] [place] [address] Apr, [facility] [place] [facility] [address] [facility] [id number] [place] [address] Apr, [facility] [place] [facility] [address] [id number] [place] [address] Mar, [facility] [place] [facility] [address] [id number] [place] [address] Mar, [facility] [place] [facility] [address] [id number] [place] [address] Mar, [facility] [place] [facility] [address] [id number] [place] [address] Mar, [facility] [place] [facility] [address] [id number] [place] [address] Mar, [facility] [place] [facility] [address] [id number] [place] [address] Mar, [facility] [place] [facility] [address] [id number] [place] [address] Mar, [facility] [place] [facility] [address] [id number] [place] [address] Mar, [facility] [place] [facility] [address] [id number] [place] [address] Mar, [facility] [place] [facility] [address] [id number] [place] [address] Mar, [facility] [place] [facility] [address] [id number] [place] [address] Mar, [facility] [place] [facility] [address] [id number] [place] [address] Mar, [facility] [place] [facility] [address] [id number] [place] [address] Mar, [facility] [place] [facility] [address] [id number] [place] [address] Mar, [facility] [place] [facility] [address] [id number] [place] [address] Feb, [facility] [place] [facility] [address] [id number] [place] [address] Jan, [facility] [place] [facility] [address] [id number] [place] [address] Jan, [facility] [place] [facility] [address] [id number] [place] [address] Jan, [facility] [place] [facility] [address] [id number] [place] [address] Jan, [facility] [place] [facility] [address] [id number] [place] [address] Jan, [facility] [place] [facility] [address] [id number] [place] [address] Jan, [facility] [place] [facility] [address] [id number] [place] [address] Dec, [facility] [place] [facility] [address] [id number] [place] [address] Dec, [facility] [place] [facility] [address] [id number] [place] [address] Dec, [facility] [place] [facility] [address] [id number] [place] [address] Dec, [facility] [place] [facility] [address] [id number] [place] [address] Dec, [facility] [place] [facility] [address] [id number] [place] [address] Dec, [facility] [place] [facility] [address] [id number] [place] [address] Dec, [facility] [place] [facility] [address] [id number] [place] [address] Dec, [facility] [place] [facility] [address] [id number] [place] [address] Dec, [facility] [place] [facility] [address] [id number] [place] [address] Dec, [facility] [place] [facility] [address] [id number] [place] [address] Nov, [facility] [address] [id number] [place] [address] Nov, [facility] [place] [facility] [address] [id number] [place] [address] October, [facility] [address] [id number] [place] [address] October, [facility] [place] [facility] [address] [id number] [place] [address] October, [facility] [address] [id number] [place] [address] October, [facility] [address] [id number] [place] [address] October, [facility] [address] [id number] [place] [address] October, [facility] [address] [id number] [place] [address] October, [facility] [place] [facility] [address] [id number] [place] [address] October, [facility] [address] [id number] [place] [address] October, [facility] [place] [facility] [address] [id number] [place] [address] October, [facility] [place] [facility] [address] [id number] [place] [address] October, [facility] [place] [facility] [address] [id number] [place] [address] October, [facility] [place] [facility] [address] [id number] [place] [address] October, [facility] [place] [facility] [address] [id number] [place] [address] October, [facility] [place] [facility] [address] [id number] [place] [address] October, [facility] [place] [facility] [address] [id number] [place] [address] October, [facility] [place] [facility] [address] [id number] [place] [address] Sep, [facility] [place] [facility] [address] [id number] [place] [address] Sep, [facility] [place] [facility] [address] [id number] [place] [address] Aug, [facility] [place] [facility] [address] [id number] [place] [address] Aug, [facility] [place] [facility] [address] [id number] [place] [address] Aug, [facility] [place] [facility] [address] [id number] [place] [address] Aug, [facility] [place] [facility] [address] [id number] [place] [address] Aug, [facility] [place] [facility] [address] [id number] [place] [address] Aug, [facility] [place] [facility] [address] [id number] [place] [address] Jul, [facility] [place] [facility] [address] [id number] [place] [address] Jul, [facility] [place] [facility] [address] [id number] [place] [address] Jul, [facility] [place] [facility] [address] [id number] [place] [address] Jul, [facility] [place] [facility] [address] [id number] [place] [address] Jul, [facility] [place] [facility] [address] [id number] [place] [address] Jul, [facility] [place] [facility] [address] [id number] [place] [address] Jul, [facility] [place] [facility] [address] [id number] [place] [address] Jul, [facility] [place] [facility] [address] [id number] [place] [address] Jul, [facility] [place] [facility] [address] [id number] [place] [address] Jul, [facility] [place] [facility] [address] [id number] [place] [address] Jul, [facility] [place] [facility] [address] [id number] [place] [address] Jul, [facility] [place] [facility] [address] [id number] [place] [address] Jul, [facility] [place] [facility] [address] [id number] [place] [address] Jun, [facility] [place] [facility] [address] [id number] [place] [address] Jun, [facility] [place] [facility] [address] [facility] [id number] [place] [address] Jun, [facility] [place] [facility] [address] [id number] [place] [address] Jun, [facility] [place] [facility] [address] [id number] [place] [address] Jun, [facility] [place] [facility] [address] [id number] [place] [address] Jun, [facility] [place] [facility] [address] [id number] [place] [address] Jun, [facility] [place] [facility] [address] [id number] [place] [address] Jun, [facility] [address] [id number] [place] [address] Jun, [facility] [place] [facility] [address] [id number] [place] [address] Jun, [facility] [place] [facility] [address] [id number] [place] [address] Jun, [facility] [place] [facility] [address] [id number] [place] [address] Jun, [facility] [place] [facility] [address] [id number] [place] [address] Jun, [facility] [place] [facility] [address] [id number] [place] [address] May, [facility] [place] [facility] [address] [id number] [place] [address] May, [facility] [place] [facility] [address] [id number] [address] May, [facility] [place] [facility] [address] [id number] [place] [address] May, [facility] [place] [facility] [address] [id number] [place] [address] Apr, [facility] [place] [facility] [address] [id number] [place] [address] Apr, [facility] [place] [facility] [address] [id number] [place] [address] Apr, [facility] [place] [facility] [address] [id number] [place] [address] Apr, [facility] [place] [facility] [address] [id number] [place] [address] Apr, [facility] [place] [facility] [address] [id number] [place] [address] Apr, [facility] [place] [facility] [address] [id number] [place] [address] 08 Apr, 2012 [facility] [place] [facility] [address] [id number] [place] [address] 08 Apr, 2012 [facility] [place] [facility] [address] [id number] [place] [address] 07 Apr, 2012 [facility] [place] [facility] [address] [id number] [place] [address] 07 Apr, 2012 [facility] [place] [facility] [address] [id number] [place] [address] 07 Apr, 2012 [facility] [place] [facility] [address] [id number] [place] [address] 07 Apr, 2012 [facility] [place] [facility] [address] [id number] [place] [address] 06 Apr, 2012 [facility] [place] [facility] [address] [id number] [place] [address] 06 Apr, 2012 [facility] [place] [facility] [address] [id number] [place] [address] 06 Apr, 2012 [facility] [place] [facility] [address] [id number] [place] [address] 06 Apr, 2012 [facility] [place] [facility] [address] [facility] [id number] [place] [address] 30 Mar, 2013 [facility] [place] [facility] [address] [id number] [place] [address] 30 Mar, 2012 [facility] [place] [facility] [address] [id number] [place] [address] 16 Mar, 2012 [facility] [place] [facility] [address] [id number] [place] [address] 16 Mar, 2012 [facility] [place] [facility] [address] [id number] [place] [address] 14 Mar, 2012 [facility] [place] [facility] [address] [facility] [id number] [place] [address] 14 Mar2012 [facility] [place] [facility] [address] [id number] [place] [address] Mar, [facility] [place] [facility] [address] [id number] [place] [address] Mar, [facility] [place] [facility] [address] [id number] [place] [address] Mar, [facility] [place] [facility] [address] [id number] [place] [address] Feb, [facility] [place] [facility] [address] [id number] [place] [address] Feb, [facility] [place] [facility] [address] [id number] [place] [address] Feb, [facility] [place] [facility] [address] [id number] [place] [address] Feb, [facility] [place] [facility] [address] [id number] [place] [address] Jan, [facility] [place] [facility] [address] [id number] [place] [address] Jan, [facility] [place] [facility] [address] [id number] [place] [address] Jan, [facility] [place] [facility] [address] [id number] [place] [address] Jan, [facility] [place] [facility] [address] [id number] [place] [address] Jan, [facility] [place] [facility] [address] [id number] [place] [address] Dec, [facility] [place] [facility] [address] [id number] [place] [address] Dec, [facility] [place] [facility] [address] [id number] [place] [address] Jul, [facility] [place] [facility] [address] [id number] [place] [address] Jul, [facility] [place] [facility] [address] [id number] [place] [address] Jul, [facility] [place] [facility] [address] [id number] [place] [address] Jun, [facility] [place] [facility] [address] [id number] [place] [address] Jun, [facility] [place] [facility] [address] [id number] [place] [address] Apr, [facility] [place] [facility] [address] [id number] [place] [address] Apr, [facility] [place] [facility] [address] [id number] [place] [address] Apr, [facility] [place] [facility] [address] [id number] [place] [address] Apr, [facility] [place] [facility] [address] [id number] [place] [address] Apr, [facility] [place] [facility] [address] [id number] [place] [address] Apr, [facility] [place] [facility] [address] [id number] [place] [address] Apr, [facility] [place] [facility] [address] [id number] [place] [address] Apr, [facility] [place] [facility] [address] [id number] [place] [address] Apr, [facility] [place] [facility] [address] [id number] [place] [address] Mar, [facility] [place] [facility] [address] [id number] [place] [address] Mar, [facility] [place] [facility] [address] [id number] [place] [address] Mar, [facility] [place] [facility] [address] [address] Mar, [facility] [address] [address] Mar, [facility] [address] [address] Mar, [facility] [address] [address] Feb, [facility] [address] [address] Feb, [facility] [address] [address] Feb, [facility] [address] [address] Feb, [facility] [address] [address] Feb, [facility] [address] [address] Feb, [facility] [address] [address] Feb, IMMUNIZATIONS No Known Immunizations SOCIAL HISTORY Never Assessed REASON FOR VISIT EMR-[facility] PLAN OF CARE VITAL SIGNS MEDICATIONS Unknown Medications RESULTS No Results PROCEDURES No Known procedures INSTRUCTIONS MEDICATIONS ADMINISTERED No Known Medications MEDICAL (GENERAL) HISTORY Type Description Date Hospitalization History [facility]- Left leg redness 04/26/2017
--- OUTSIDE RECORDS SUMMARY | 2019-01-03 12:54 | XMS REPORT ---
Author Author CONTRERAS QUINN [facility] Address [address] [place] [address] Care Team Providers Care Night Court Magistrate Name Role Phone CONTRERAS QUINN Unavailable PROBLEMS Type Condition ICD9-CM Code PGN85-WF Code Onset Dates Condition Status SNOMED Code Problem Difficulty in walking, not elsewhere classified R26.2 Active 110516745 Problem Muscle weakness (generalized) M62.81 Active 89480180 Problem Age-related osteoporosis without current pathological fracture M81.0 Active 43626009 Problem Other hereditary and idiopathic neuropathies G60.8 Active 443280163 Problem Other chronic pain G89.29 Active 73847670 Problem Essential (primary) hypertension I10 Active 32593293 Problem Morbid (severe) obesity due to excess calories E66.01 Active 925888210 Problem Benign prostatic hyperplasia with lower urinary tract symptoms, symptom details unspecified N40.1 Active 758375591 Problem Right foot drop M21.371 Active 520905476278003 Problem Type 2 diabetes mellitus without complication, without long-term current use of insulin E11.9 Active 394829431 Problem Type 2 diabetes mellitus with diabetic neuropathy, unspecified E11.40 Active 42284866 Problem 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 Active 983088838 Problem Type 2 diabetes mellitus with hyperglycemia E11.65 Active 60356394 Problem Allergic rhinitis, unspecified seasonality, unspecified trigger J30.9 Active 99561587 Problem Hyperlipidemia, unspecified hyperlipidemia type E78.5 Active 04028556 Problem Insomnia, unspecified type G47.00 Active 485119763 Problem Constipation, unspecified constipation type K59.00 Active 69322030 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 Active 149843197 ALLERGIES No Known Allergies ENCOUNTERS Encounter Location Date Diagnosis [facility] [address] [facility] [id number], [place] [address] Aug, [facility] [address] [id number], [place] [address] Aug, Urinary tract infection without hematuria, site unspecified N39.0 [facility] [address] [place] [id number] Aug, Left leg swelling M79.89 [facility] [id number], [place] [address] Jul, [facility] [id number] [place] [address] Jul, jail current use of insulin Z79.4 and Type 2 diabetes mellitus with hyperglycemia E11.65 [place] [id number] [place] [address] Jun, [facility] [address] [place] [id number] Jun, Left elbow pain M25.522 [facility] [address] [place] [id number] Jun, Abrasion foot/toe S90.819A and Type 2 diabetes mellitus with diabetic neuropathy, unspecified E11.40 [facility] [address] [place] [id number] Apr, Cellulitis of toe of left foot L03.032 [place] [id number] [place] [address] Mar, Extremity cyanosis R23.0 [facility] [address] [place] [id number] Feb, Type 2 diabetes mellitus with diabetic neuropathy, unspecified E11.40 ; jail current use of insulin Z79.4 and Abrasion foot/toe S90.819A [place] [id number], [place] [address] Feb, [place] [id number] [place] [address] Jun, [facility] [id number], [place] [address] Sep, [facility] [id number] [place] [address] [place] [address] Feb, [facility] [address] [id number], [place] [address] Dec, [facility] [id number], [place] [address] Nov, [facility] [id number], [place] [address] Nov, [facility] [address] [id number] October, Diabetes 250.00 [facility] [address] [id number], [place] [address] October, [facility] [id number], [place] [address] Sep, [facility] [id number], [place] [address] Sep, [facility] [id number], [place] [address] Jul, [facility] [id number], [place] [address] Jul, [facility] [id number], [place] [address] Jul, [facility] [address] [id number] Jul, [facility] [address] [id number], [place] [address] Jul, [facility] [address] [id number], [place] [address] Jul, [facility] [address] [id number] Jul, [facility] [address] [id number], [place] [address] Jun, [facility] [id number] [place] [address] Jun, [facility] [address] [place] [id number] Jun, [facility] [address] [id number] [place] [address] Jun, [facility] [address] [id number] [place] [address] Jun, [facility] [address] [id number] [place] [address] Jun, [facility] [address] [id number] [place] [address] Jun, [facility] [address] [id number] [place] [address] Jun, [facility] [address] [id number] [place] [address] Jun, [facility] [address] [id number] [place] [address] Jun, [facility] [address] [id number] [place] [address] May, [facility] [address] [id number] [place] [address] May, [facility] [address] [id number] [place] [address] May, [facility] [place] [facility] [address] [id number] [place] [address] May, [facility] [place] [facility] [address] [id number] [place] [address] May, [facility] [place] [facility] [address] [id number] [place] [address] Apr, [facility] [place] [facility] [address] [id number] [place] [address] Apr, [facility] [place] [facility] [address] [id number] [place] [address] 08 Apr, 2014 [facility] [place] [facility] [address] [id number] [place] [address] Mar, [facility] [place] [facility] [address] [id number] [place] [address] Mar, [facility] [place] [facility] [address] [id number] [place] [address] Mar, [facility] [place] [facility] [address] [id number] [place] [address] Mar, [facility] [place] [facility] [address] [id number] [place] [address] Mar, [facility] [place] [facility] [address] [id number] [place] [address] Mar, [facility] [place] [facility] [address] [id number] [place] [address] Mar, [facility] [place] [facility] [address] [id number] [place] [address] Mar, [facility] [place] [facility] [address] [id number] [place] [address] Mar, [facility] [place] [facility] [address] [id number] [place] [address] Mar, [facility] [place] [facility] [address] [id number] [place] [address] Mar, [facility] [place] [facility] [address] [id number] [place] [address] Mar, [facility] [place] [facility] [address] [id number] [place] [address] Mar, [facility] [place] [facility] [address] [id number] [place] [address] Mar, [facility] [place] [facility] [address] [id number] [place] [address] Feb, [facility] [place] [facility] [address] [id number] [place] [address] Jan, [facility] [place] [facility] [address] [id number] [place] [address] Jan, [facility] [place] [facility] [address] [id number] [place] [address] Jan, [facility] [place] [facility] [address] [id number] [place] [address] Jan, [facility] [place] [facility] [address] [id number] [place] [address] Jan, [facility] [place] [facility] [address] [id number] [place] [address] Jan, [facility] [place] [facility] [address] [id number] [place] [address] Dec, [facility] [place] [facility] [address] [id number] [place] [address] Dec, [facility] [place] [facility] [address] [id number] [place] [address] Dec, [facility] [place] [facility] [address] [id number] [place] [address] Dec, [facility] [place] [facility] [address] [id number] [place] [address] Dec, [facility] [place] [facility] [address] [id number] [place] [address] Dec, [facility] [place] [facility] [address] [id number] [place] [address] Dec, [facility] [place] [facility] [address] [id number] [place] [address] Dec, [facility] [place] [facility] [address] [id number] [place] [address] Dec, [facility] [place] [facility] [address] [id number] [place] [address] Dec, [facility] [place] [facility] [address] [id number] [place] [address] Nov, [facility] [place] [facility] [address] [id number] [place] [address] Nov, [facility] [place] [facility] [address] [id number] [place] [address] October, [facility] [place] [facility] [address] [id number] [place] [address] October, [facility] [place] [facility] [address] [id number] [place] [address] October, [facility] [place] [facility] [address] [id number] [place] [address] October, [facility] [place] [facility] [address] [id number] [place] [address] October, [facility] [place] [facility] [address] [id number] [place] [address] October, [facility] [place] [facility] [address] [id number] [place] [address] October, [facility] [place] [facility] [address] [id number] [place] [address] October, [facility] [place] [facility] [address] [id number] [place] [address] October, [facility] [place] [facility] [address] [id number] [place] [address] October, [facility] [place] [facility] [address] [id number] [place] [address] October, [facility] [place] [facility] [address] [id number] [place] [address] October, [facility] [place] [facility] [address] [id number] [place] [address] October, [facility] [place] [facility] [address] [id number] [place] [address] October, [facility] [place] [facility] [address] [id number] [place] [address] October, [facility] [place] [facility] [address] [id number] [place] [address] October, [facility] [place] [facility] [address] [id number] [place] [address] Sep, [facility] [place] [facility] [address] [id number] [place] [address] Sep, [facility] [place] [facility] [address] [id number] [place] [address] Aug, [facility] [place] [facility] [address] [id number] [place] [address] Aug, [facility] [place] [facility] [address] [id number] [place] [address] Aug, [facility] [place] [facility] [address] [id number] [place] [address] Aug, [facility] [place] [facility] [address] [id number] [place] [address] Aug, [facility] [place] [facility] [address] [id number] [place] [address] Aug, [facility] [place] [facility] [address] [id number] [place] [address] Jul, [facility] [place] [facility] [address] [id number] [place] [address] Jul, [facility] [place] [facility] [address] [id number] [place] [address] Jul, [facility] [place] [facility] [address] [id number] [place] [address] Jul, [facility] [place] [facility] [address] [id number] [place] [address] Jul, [facility] [place] [facility] [address] [id number] [place] [address] Jul, [facility] [place] [facility] [address] [id number] [place] [address] Jul, [facility] [place] [facility] [address] [id number] [place] [address] Jul, [facility] [place] [facility] [address] [id number] [place] [address] Jul, [facility] [place] [facility] [address] [id number] [place] [address] Jul, [facility] [place] [facility] [address] [facility] [id number] [place] [address] Jul, [facility] [place] [facility] [address] [facility] [id number] [place] [address] Jul, [facility] [place] [facility] [address] [id number] [place] [address] Jul, [facility] [place] [facility] [id number] [place] [address] Jun, [facility] [place] [facility] [address] [facility] [id number] [place] [address] Jun, [facility] [place] [facility] [address] [facility] [id number] [place] [address] Jun, [facility] [place] [facility] [address] [id number] [place] [address] Jun, [facility] [place] [facility] [address] [id number] [place] [address] Jun, [facility] [place] [facility] [address] [id number] [place] [address] Jun, [facility] [place] [facility] [address] [facility] [id number] [place] [address] Jun, [facility] [place] [facility] [address] [id number] [place] [address] Jun, [facility] [place] [facility] [address] [id number] [place] [address] Jun, [facility] [place] [facility] [address] [id number] [place] [address] Jun, [facility] [place] [facility] [address] [id number] [place] [address] Jun, [facility] [place] [facility] [address] [id number] [place] [address] Jun, [facility] [place] [facility] [address] [id number] [place] [address] Jun, [facility] [place] [facility] [address] [id number] [place] [address] May, [facility] [place] [facility] [address] [id number] [place] [address] May, [facility] [place] [facility] [address] [id number] [place] [address] May, [facility] [place] [facility] [address] [id number] [place] [address] May, [facility] [place] [facility] [address] [id number] [place] [address] Apr, [facility] [place] [facility] [address] [id number], [place] [address] Apr, [facility] [place] [facility] [address] [id number] [place] [address] Apr, [facility] [place] [facility] [address] [id number] [place] [address] 15 Apr, 2013 [facility] [place] [facility] [address] [id number] [place] [address] 14 Apr, 2013 [facility] [place] [facility] [address] [id number], [place] [address] 14 Apr, 2012 [facility] [place] [facility] [address] [id number] [place] [address] 08 Apr, 2012 [facility] [place] [facility] [address] [id number], [place] [address] 08 Apr, 2012 [facility] [place] [facility] [address] [id number] [place] [address] 07 Apr, 2012 [facility] [place] [facility] [address] [id number], [place] [address] 07 Apr, 2012 [facility] [place] [facility] [address] [id number] [place] [address] 07 Apr, 2013 [facility] [place] [facility] [address] [id number], [place] [address] 07 Apr, 2012 [facility] [place] [facility] [address] [id number], [place] [address] 06 Apr, 2012 [facility] [place] [facility] [address] [id number], [place] [address] 06 Apr, 2013 [facility] [place] [facility] [address] [id number], [place] [address] 06 Apr, 2013 [facility] [place] [facility] [address] [id number], [place] [address] 06 Apr, 2013 [facility] [place] [facility] [address] [id number], [place] [address] 30 Mar, 2012 [facility] [place] [facility] [address] [id number], [place] [address] 30 Mar, 2012 [facility] [place] [facility] [address] [id number], [place] [address] 16 Mar, 2012 [facility] [place] [facility] [address] [id number], [place] [address] 16 Mar, 2012 [facility] [place] [facility] [address] [id number], [place] [address] 14 Mar, 2012 [facility] [place] [facility] [address] [id number] [place] [address] 14 Mar, 2013 [facility] [place] [facility] [address] [id number] [place] [address] 10 Mar, 2013 [facility] [place] [facility] [address] [id number] [place] [address] 08 Mar, 2013 [facility] [place] [facility] [address] [id number] [place] [address] 07 Mar, 2013 [facility] [place] [facility] [address] [id number] [place] [address] 26 Feb, 2013 [facility] [place] [facility] [address] [id number] [place] [address] 18 Feb, 2013 [facility] [place] [facility] [address] [id number] [place] [address] 10 Feb, 2013 [facility] [place] [facility] [address] [id number] [place] [address] 09 Feb, 2013 [facility] [place] [facility] [address] [id number] [place] [address] 30 Jan, 2013 [facility] [place] [facility] [address] [id number] [place] [address] Jan, [facility] [place] [facility] [address] [id number] [place] [address] Jan, [facility] [place] [facility] [address] [id number] [place] [address] Jan, [facility] [place] [facility] [address] [id number] [place] [address] Jan, [facility] [place] [facility] [address] [id number] [place] [address] Dec, [facility] [place] [facility] [address] [id number] [place] [address] 17 Dec, 2012 [facility] [place] [facility] [address] [id number] [place] [address] Jul, [facility] [place] [facility] [address] [id number] [place] [address] Jul, [facility] [place] [facility] [address] [id number] [place] [address] Jul, [facility] [place] [facility] [address] [id number] [place] [address] Jun, [facility] [place] [facility] [address] [id number] [place] [address] Jun, [facility] [place] [facility] [address] [id number] [place] [address] Apr, [facility] [place] [facility] [address] [id number] [place] [address] Apr, [facility] [place] [facility] [address] [id number] [place] [address] Apr, [facility] [place] [facility] [address] [id number] [place] [address] Apr, [facility] [place] [facility] [address] [id number] [place] [address] Apr, [facility] [place] [facility] [address] [id number] [place] [address] Apr, [facility] [place] [facility] [address] [id number], [place] [address] Apr, [facility] [place] [facility] [address] [id number], [place] [address] Apr, [facility] [place] [facility] [address] [id number] [place] [address] Apr, [facility] [place] [facility] [address] [id number] [place] [address] Mar, [facility] [place] [facility] [address] [id number] [place] [address] Mar, [facility] [place] [facility] [id number] [address] Mar, [facility] [id number] [address] Mar, [facility] [id number] [place] [address] Mar, [facility] [id number] [place] [id number] Mar, [facility] [id number], [place] [address] Feb, [facility] [id number] [place] [id number] Feb, [facility] [id number] [place] [address] Feb, [facility] [id number] [place] [id number] Feb, [facility] [id number], [place] [address] Feb, [facility] [address] [id number], [place] [address] Feb, [facility] [id number] [place] [address] Feb, IMMUNIZATIONS No Known Immunizations SOCIAL HISTORY Never Assessed REASON FOR VISIT Edema --ALEXANDRE Aj PLAN OF CARE Activity Details Follow Up prn Reason: VITAL SIGNS MEDICATIONS Medication Instructions Dosage Frequency Start Date End Date Duration Status Lipitor 10 MG Orally Once a day 1 tablet 24h 30 day(s) Active Aspirin 81 mg take 1 tablet (81 mg) by oral route once daily Feb, Active Proscar 5 MG Orally Once a day 1 tablet 24h 30 day(s) Active Cepacol Sore Throat 10-2.1 MG Mouth/Throat every 2 hrs 1 lozenge as needed Active Hemorrhoidal 1-0.25-14.4-15 % Rectal Four times a day 1 application to affected area as needed 6h Active PredniSONE 20 MG Orally Once a day 2 tablet 24h 17 Jun, 2018 5 days Active NyQuil Severe Cold/Flu 5-6.25-10-325 MG/15ML Orally every 24 hrs 30 ml as needed Active Enalapril Maleate Orally 2 times a day 1 tablet 12h Dec, Active Neurontin 300 MG Orally twice a day 1 capsule 12h Active metformin 1,000 mg take 1 tablet by Oral route 2 times per day with morning and evening meals for diabetes Mar, Active Levemir 100 UNIT/ML Subcutaneous 2 times a day 33 units 12h Active Systane Preservative Free 0.4-0.3 % Ophthalmic every 4 hrs 1 dropp in both eyes as needed 4h Active Ketoconazole 2 % Externally to abdominal folds twice a day 1 application to affected area 12h Active Humalog 100 UNIT/ML Subcutaneous 3 times a day Inject 22 units before meals 8h 22 Jul, 2018 Active Myrbetriq 50 MG Orally Once a day 1 tablet 24h 30 day(s) Active Flomax 0.4 MG Orally Once a day 1 capsule 24h 30 day(s) Active Milk of Magnesia 1200 MG/15ML 30 ml as needed Active Lasix 20 MG Orally Once a day 1 tablet 24h 30 day(s) Active loperamide 2 mg take 2 tablets (4 mg) by oral route after 1st loose stool and 1 tablet (2 mg) after each next bowel movement; do not exceed 16 mg in 24hrs Apr, Active Lopressor 50 MG Orally Twice a day 1 tablet with food 12h 30 day(s) Active Colace 100 mg Orally twice a day 1 capsule 12h Active Tears Naturale II 1 drop in both eyes 12h Active Metoprolol Tartrate 50 mg take 1 tablet by Oral route 1 time per day with meals Apr, Active Tamsulosin HCl 0.4 MG TAKE 1 CAPSULE BY MOUTH DAILY IN THE AFTERNOON 30 Active RESULTS No Results PROCEDURES Procedure Date Ordered Result Body Site Stable Visit (10 minutes) August 25, 2018 INSTRUCTIONS MEDICATIONS ADMINISTERED No Known Medications MEDICAL (GENERAL) HISTORY Type Description Date Hospitalization History [facility]- Left leg redness 04/26/2017
--- OUTSIDE RECORDS SUMMARY | 2019-01-03 12:55 | XMS REPORT ---
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 Name Role Phone Migration, Doctor Unavailable Unavailable PROBLEMS Type Condition ICD9-CM Code ROG39-PR Code Onset Dates Condition Status SNOMED Code Problem Difficulty in walking, not elsewhere classified R26.2 Active 584761634 Problem Muscle weakness (generalized) M62.81 Active 60732072 Problem Age-related osteoporosis without current pathological fracture M81.0 Active 08398701 Problem Other hereditary and idiopathic neuropathies G60.8 Active 694387919 Problem Other chronic pain G89.29 Active 87153447 Problem Essential (primary) hypertension I10 Active 69111300 Problem Morbid (severe) obesity due to excess calories E66.01 Active 195498420 Problem Benign prostatic hyperplasia with lower urinary tract symptoms, symptom details unspecified N40.1 Active 069544283 Problem Right foot drop M21.371 Active 141438588740650 Problem Type 2 diabetes mellitus without complication, without long-term current use of insulin E11.9 Active 125342717 Problem Type 2 diabetes mellitus with diabetic neuropathy, unspecified E11.40 Active 70009163 Problem 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 Active 432393063 Problem Type 2 diabetes mellitus with hyperglycemia E11.65 Active 82040058 Problem Allergic rhinitis, unspecified seasonality, unspecified trigger J30.9 Active 34687203 Problem Hyperlipidemia, unspecified hyperlipidemia type E78.5 Active 61880869 Problem Insomnia, unspecified type G47.00 Active 572803162 Problem Constipation, unspecified constipation type K59.00 Active 00061071 Problem USP current use of insulin Z79.4 Active 754817414 ALLERGIES No Information ENCOUNTERS Encounter Location Date Diagnosis [facility] [address] [facility] [id number] [address] Aug, [facility] [address] [facility] [id number], [place] [address] Aug, Urinary tract infection without hematuria, site unspecified N39.0 [facility] [address] [id number] Aug, Left leg swelling M79.89 [facility] [address], [place] [address] Jul, [facility] [id number] [place] [address] Jul, USP current use of insulin Z79.4 and Type 2 diabetes mellitus with hyperglycemia E11.65 [place] [id number] [place] [address] Jun, [facility] [address] [id number] Jun, Left elbow pain M25.522 [facility] [address] [place] [id number] Jun, Abrasion foot/toe S90.819A and Type 2 diabetes mellitus with diabetic neuropathy, unspecified E11.40 [facility] [address] [place] [id number] Apr, Cellulitis of toe of left foot L03.032 [facility] [id number] [place] [address] Mar, Extremity cyanosis R23.0 [facility] [address] [place] [id number] Feb, Type 2 diabetes mellitus with diabetic neuropathy, unspecified E11.40 ; rn long term care current use of insulin Z79.4 and Abrasion foot/toe S90.819A [place] [address], [place] [address] Feb, [place] [address] [address] Jun, [place] [id number] [place] [address] Sep, [facility] [address] [address] Feb, [place] [id number] [address] Dec, [facility] [address] [id number], [place] [address] Nov, [facility] [address] [address] Nov, [facility] [address] [id number] October, Diabetes 250.00 [facility] [address] [id number], [place] [address] October, [facility] [address] [id number], [place] [address] Sep, [facility] [address], [place] [address] Sep, [facility] [address], [place] [address] Jul, [facility] [address], [place] [address] Jul, [facility] [address], [place] [address] Jul, [facility] [address] [id number] Jul, [facility] [id number] [address] Jul, [facility] [id number] [address] Jul, [facility] [address] [id number] Jul, [facility] [id number] [address] Jun, [facility] [id number] [address] Jun, [facility] [address] [id number] 14 Jun, 2014 [facility] [address] [id number] [place] [address] Jun, [facility] [place] [facility] [address] [id number] [place] [address] Jun, [facility] [address] [id number] [place] [address] Jun, [facility] [place] [facility] [address] [id number] [place] [address] Jun, [facility] [address] [id number] [place] [address] Jun, [facility] [place] [facility] [address] [id number] [place] [address] Jun, [facility] [address] [id number] [place] [address] Jun, [facility] [place] [facility] [address] [id number] [place] [address] May, [facility] [place] [facility] [address] [id number] [place] [address] May, [facility] [place] [facility] [address] [facility] [id number] [place] [address] May, [facility] [place] [facility] [address] [id number] [place] [address] May, [facility] [place] [facility] [address] [id number] [place] [address] May, [facility] [place] [facility] [address] [id number] [place] [address] Apr, [facility] [place] [facility] [address] [id number] [place] [address] Apr, [facility] [place] [facility] [address] [facility] [id number] [place] [address] Apr, [facility] [place] [facility] [address] [id number] [place] [address] Mar, [facility] [place] [facility] [address] [id number] [place] [address] Mar, [facility] [place] [facility] [address] [id number] [place] [address] Mar, [facility] [place] [facility] [address] [id number] [place] [address] Mar, [facility] [place] [facility] [address] [id number] [place] [address] Mar, [facility] [place] [facility] [address] [id number] [place] [address] Mar, [facility] [place] [facility] [address] [id number] [place] [address] Mar, [facility] [place] [facility] [address] [id number] [place] [address] Mar, [facility] [place] [facility] [address] [id number] [place] [address] Mar, [facility] [place] [facility] [address] [id number] [place] [address] Mar, [facility] [place] [facility] [address] [id number] [place] [address] Mar, [facility] [place] [facility] [address] [id number] [place] [address] Mar, [facility] [place] [facility] [address] [id number] [place] [address] Mar, [facility] [place] [facility] [address] [id number] [place] [address] Mar, [facility] [place] [facility] [address] [id number] [place] [address] Feb, [facility] [place] [facility] [address] [id number] [place] [address] Jan, [facility] [place] [facility] [address] [id number] [place] [address] Jan, [facility] [place] [facility] [address] [id number] [place] [address] Jan, [facility] [place] [facility] [address] [id number] [place] [address] Jan, [facility] [place] [facility] [address] [id number] [place] [address] Jan, [facility] [place] [facility] [address] [id number] [place] [address] Jan, [facility] [place] [facility] [address] [id number] [place] [address] Dec, [facility] [place] [facility] [address] [id number] [place] [address] Dec, [facility] [place] [facility] [address] [id number] [place] [address] Dec, [facility] [place] [facility] [address] [id number] [place] [address] Dec, [facility] [place] [facility] [address] [id number] [place] [address] Dec, [facility] [place] [facility] [address] [id number] [place] [address] Dec, [facility] [place] [facility] [address] [id number] [place] [address] Dec, [facility] [place] [facility] [address] [id number] [place] [address] Dec, [facility] [place] [facility] [address] [id number] [place] [address] Dec, [facility] [place] [facility] [address] [id number] [place] [address] Dec, [facility] [place] [facility] [address] [id number] [place] [address] Nov, [facility] [address] [id number] [place] [address] Nov, [facility] [place] [facility] [address] [id number] [place] [address] October, [facility] [address] [id number] [place] [address] October, [facility] [place] [facility] [address] [id number] [place] [address] October, [facility] [address] [id number] [place] [address] October, [facility] [address] [id number] [place] [address] October, [facility] [address] [id number] [place] [address] October, [facility] [address] [id number] [place] [address] October, [facility] [place] [facility] [address] [id number] [place] [address] October, [facility] [address] [id number] [place] [address] October, [facility] [place] [facility] [address] [id number] [place] [address] October, [facility] [place] [facility] [address] [id number] [place] [address] October, [facility] [place] [facility] [address] [id number] [place] [address] October, [facility] [place] [facility] [address] [id number] [place] [address] October, [facility] [place] [facility] [address] [id number] [place] [address] October, [facility] [place] [facility] [address] [id number] [place] [address] October, [facility] [place] [facility] [address] [id number] [place] [address] October, [facility] [place] [facility] [address] [id number] [place] [address] Sep, [facility] [place] [facility] [address] [id number] [place] [address] Sep, [facility] [place] [facility] [address] [id number] [place] [address] Aug, [facility] [place] [facility] [address] [id number] [place] [address] Aug, [facility] [place] [facility] [address] [id number] [place] [address] Aug, [facility] [place] [facility] [address] [id number] [place] [address] Aug, [facility] [place] [facility] [address] [id number] [place] [address] Aug, [facility] [place] [facility] [address] [id number] [place] [address] Aug, [facility] [place] [facility] [address] [id number] [place] [address] Jul, [facility] [place] [facility] [address] [id number] [place] [address] Jul, [facility] [place] [facility] [address] [id number] [place] [address] Jul, [facility] [place] [facility] [address] [id number] [place] [address] Jul, [facility] [place] [facility] [address] [id number] [place] [address] Jul, [facility] [place] [facility] [address] [id number] [place] [address] Jul, [facility] [place] [facility] [address] [id number] [place] [address] Jul, [facility] [place] [facility] [address] [id number] [place] [address] Jul, [facility] [place] [facility] [address] [id number] [place] [address] Jul, [facility] [place] [facility] [address] [id number] [place] [address] Jul, [facility] [place] [facility] [address] [id number] [place] [address] Jul, [facility] [place] [facility] [address] [id number] [place] [address] Jul, [facility] [place] [facility] [address] [id number] [place] [address] Jul, [facility] [place] [facility] [address] [id number] [place] [address] Jun, [facility] [place] [facility] [address] [id number] [place] [address] Jun, [facility] [place] [facility] [address] [facility] [id number] [place] [address] Jun, [facility] [place] [facility] [address] [id number] [place] [address] Jun, [facility] [place] [facility] [address] [id number] [place] [address] Jun, [facility] [place] [facility] [address] [id number] [place] [address] Jun, [facility] [place] [facility] [address] [id number] [place] [address] Jun, [facility] [place] [facility] [address] [id number] [place] [address] Jun, [facility] [address] [id number] [place] [address] Jun, [facility] [place] [facility] [address] [id number] [place] [address] Jun, [facility] [place] [facility] [address] [id number] [place] [address] Jun, [facility] [place] [facility] [address] [id number] [place] [address] Jun, [facility] [place] [facility] [address] [id number] [place] [address] Jun, [facility] [place] [facility] [address] [id number] [place] [address] May, [facility] [place] [facility] [address] [id number] [place] [address] May, [facility] [place] [facility] [address] [id number], [place] [address] May, [facility] [place] [facility] [address] [id number] [place] [address] May, [facility] [place] [facility] [address] [id number], [place] [address] Apr, [facility] [place] [facility] [address] [id number], [place] [address] Apr, [facility] [place] [facility] [address] [id number], [place] [address] Apr, [facility] [place] [facility] [address] [id number] [place] [address] Apr, [facility] [place] [facility] [address] [id number], [place] [address] Apr, [facility] [place] [facility] [address] [id number] [place] [address] Apr, [facility] [place] [facility] [address] [id number] [place] [address] 08 Apr, 2012 [facility] [place] [facility] [address] [id number] [place] [address] 08 Apr, 2012 [facility] [place] [facility] [address] [id number] [place] [address] 07 Apr, 2012 [facility] [place] [facility] [address] [id number] [place] [address] 07 Apr, 2012 [facility] [place] [facility] [address] [id number] [place] [address] 07 Apr, 2012 [facility] [place] [facility] [address] [id number] [place] [address] 07 Apr, 2012 [facility] [place] [facility] [address] [id number] [place] [address] 06 Apr, 2012 [facility] [place] [facility] [address] [id number] [place] [address] 06 Apr, 2012 [facility] [place] [facility] [address] [id number] [place] [address] 06 Apr, 2012 [facility] [place] [facility] [address] [id number] [place] [address] 06 Apr, 2012 [facility] [place] [facility] [address] [facility] [id number] [place] [address] 30 Mar, 2013 [facility] [place] [facility] [address] [id number] [place] [address] 30 Mar, 2012 [facility] [place] [facility] [address] [id number], [place] [address] 16 Mar, 2012 [facility] [place] [facility] [address] [id number] [place] [address] 16 Mar, 2012 [facility] [place] [facility] [address] [id number] [place] [address] 14 Mar, 2012 [facility] [place] [facility] [address] [facility] [id number], [place] [address] 14 Mar2012 [facility] [place] [facility] [address] [id number] [place] [address] Mar, [facility] [place] [facility] [address] [id number] [place] [address] Mar, [facility] [place] [facility] [address] [id number] [place] [address] Mar, [facility] [place] [facility] [address] [id number] [place] [address] Feb, [facility] [place] [facility] [address] [id number] [place] [address] Feb, [facility] [place] [facility] [address] [id number] [place] [address] Feb, [facility] [place] [facility] [address] [id number] [place] [address] Feb, [facility] [place] [facility] [address] [id number] [place] [address] Jan, [facility] [place] [facility] [address] [id number] [place] [address] Jan, [facility] [place] [facility] [address] [id number] [place] [address] Jan, [facility] [place] [facility] [address] [id number] [place] [address] Jan, [facility] [place] [facility] [address] [id number] [place] [address] Jan, [facility] [place] [facility] [address] [id number] [place] [address] Dec, [facility] [place] [facility] [address] [id number] [place] [address] Dec, [facility] [place] [facility] [address] [id number] [place] [address] Jul, [facility] [place] [facility] [address] [id number] [place] [address] Jul, [facility] [place] [facility] [address] [id number] [place] [address] Jul, [facility] [place] [facility] [address] [id number] [place] [address] Jun, [facility] [place] [facility] [address] [id number] [place] [address] Jun, [facility] [place] [facility] [address] [id number] [place] [address] Apr, [facility] [place] [facility] [address] [id number] [place] [address] Apr, [facility] [place] [facility] [address] [id number] [place] [address] Apr, [facility] [place] [facility] [address] [id number] [place] [address] Apr, [facility] [place] [facility] [address] [id number] [place] [address] Apr, [facility] [place] [facility] [address] [id number] [place] [address] Apr, [facility] [place] [facility] [address] [id number] [place] [address] Apr, [facility] [place] [facility] [address] [id number], [place] [address] Apr, [facility] [place] [facility] [address] [id number], [place] [address] Apr, [facility] [place] [facility] [address] [id number] [place] [address] Mar, [facility] [place] [facility] [address] [id number] [place] [address] Mar, [facility] [place] [facility] [address] [id number] [place] [address] Mar, [facility] [place] [facility] [id number], [place] [address] Mar, [facility] [id number] [address] Mar, [facility] [id number] [place] [address] Mar, [facility] [id number] [place] [address] Feb, [facility] [id number] [place] [address] Feb, [facility] [id number] [address] Feb, [facility] [id number] [place] [address] Feb, [facility] [id number] [place] [address] Feb, [facility] [id number] [place] [address] Feb, [facility] [id number] [place] [address] Feb, IMMUNIZATIONS No Known Immunizations SOCIAL HISTORY Never Assessed REASON FOR VISIT EMR-[facility] [place] PLAN OF CARE VITAL SIGNS MEDICATIONS Medication Instructions Dosage Frequency Start Date End Date Duration Status Levaquin 750 mg 1 tablet by Oral route every 24 hours for 2 weeks Jun, Active Humalog KwikPen 100 unit/mL inject 20 Units by Subcutaneous route as per insulin sliding scale protocol 3 times per day 20 units with meals Mar, Active zolpidem 10 mg take 1 tablet (10 mg) by oral route once daily at bedtime PRN at bedtime for insomnia Jun, Active Enalapril Maleate by Oral route 10mg daiily per Cardiology Dec, Active loperamide 2 mg take 2 tablets (4 mg) by oral route after 1st loose stool and 1 tablet (2 mg) after each next bowel movement; do not exceed 16 mg in 24hrs Apr, Active metformin 1,000 mg take 1 tablet by Oral route 2 times per day with morning and evening meals for diabetes Mar, Active Metoprolol Tartrate 50 mg take 1 tablet by Oral route 1 time per day with meals Apr, Active Keflex 500 mg take 1 capsule by Oral route 3 times per day for 10 days Jan, Active Lantus SoloStar 100 unit/mL (3 mL) 30 units by Subcutaneous route 1 time per day Mar, Active Aspirin 81 mg take 1 tablet (81 mg) by oral route once daily Feb, Active RESULTS No Results PROCEDURES No Known procedures INSTRUCTIONS MEDICATIONS ADMINISTERED No Known Medications MEDICAL (GENERAL) HISTORY Type Description Date Hospitalization History [facility]- Left leg redness 04/26/2017
--- OUTSIDE RECORDS SUMMARY | 2019-01-03 12:55 | XMS REPORT ---
Author Author ABRAHAM DAVIDSON [facility] Address [address] [place] [address] Care Team Providers Care Director Of Global Sales Name Role Phone ABRAHAM DAVIDSON Unavailable PROBLEMS Type Condition ICD9-CM Code [id number] Code Onset Dates Condition Status SNOMED Code Problem Essential (primary) hypertension I10 Active 69655490 Problem Age-related osteoporosis without current pathological fracture M81.0 Active 23685071 Problem Difficulty in walking, not elsewhere classified R26.2 Active 082413021 Problem group home current use of insulin Z79.4 Active 346427785 Problem Type 2 diabetes mellitus with diabetic neuropathy, unspecified E11.40 Active 40716402 Problem Other chronic pain G89.29 Active 19259186 Problem Muscle weakness (generalized) M62.81 Active 91401312 Problem Morbid (severe) obesity due to excess calories E66.01 Active 590020573 Problem Other hereditary and idiopathic neuropathies G60.8 Active 790982041 Problem Allergic rhinitis, unspecified seasonality, unspecified trigger J30.9 Active 10972332 Problem 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 Active 753607640 Problem Type 2 diabetes mellitus without complication, without long-term current use of insulin E11.9 Active 006184506 Problem Hyperlipidemia, unspecified hyperlipidemia type E78.5 Active 26626262 Problem Benign prostatic hyperplasia with lower urinary tract symptoms, symptom details unspecified N40.1 Active 534052551 Problem Insomnia, unspecified type G47.00 Active 278729378 Problem Right foot drop M21.371 Active [id number] Problem Constipation, unspecified constipation type K59.00 Active 72457607 ALLERGIES No Information ENCOUNTERS Encounter Location Date Diagnosis [facility] [address], [place] [id number] Apr, Cellulitis of toe of left foot L03.032 [facility] [address] [facility] [id number], [place] [address] Mar, Extremity cyanosis R23.0 [facility] [address], [place] [id number] Feb, Type 2 diabetes mellitus with diabetic neuropathy, unspecified E11.40 ; group home current use of insulin Z79.4 and Abrasion foot/toe S90.819A [facility] [address], [place] [address] Feb, [facility] [id number] [place] [address] Jun, [facility] [id number] [place] [address] Sep, [facility] [id number] [place] [address] Feb, [facility] [id number] [place] [address] Dec, [facility] [id number] [place] [address] Nov, [facility] [address], [place] [address] Nov, [facility] [address] [id number] October, Diabetes 250.00 [facility] [address], [place] [address] October, [facility] [address], [place] [address] Sep, [facility] [address], [place] [address] Sep, [facility] [address] [id number], [place] [address] Jul, [facility] [address], [place] [address] Jul, [facility] [id number] [place] [address] Jul, [facility] [address] [facility] [id number] Jul, [facility] [address] [id number], [place] [address] Jul, [facility] [address] [id number] [place] [address] Jul, [facility] [address] [facility] [id number] Jul, [facility] [address] [id number], [place] [address] Jun, [facility] [address] [id number], [place] [address] Jun, [facility] [address] [facility] [id number] Jun, [facility] [address] [id number], [place] [address] Jun, [facility] [address] [id number], [place] [address] Jun, [facility] [address] [id number], [place] [address] Jun, [facility] [address] [id number], [place] [address] Jun, [facility] [address] [id number], [place] [address] Jun, [facility] [address] [id number], [place] [address] Jun, [facility] [address] [id number], [place] [address] Jun, [facility] [address] [id number], [place] [address] May, [facility] [address] [id number], [place] [address] May, [facility] [place] [facility] [address] [id number] [place] [address] May, [facility] [place] [facility] [address] [id number] [place] [address] May, [facility] [place] [facility] [address] [id number] [place] [address] May, [facility] [place] [facility] [address] [id number] [place] [address] Apr, [facility] [place] [facility] [address] [id number] [place] [address] Apr, [facility] [place] [facility] [address] [id number] [place] [address] Apr, [facility] [place] [facility] [address] [id number] [place] [address] Mar, [facility] [place] [facility] [address] [id number] [place] [address] 31 Mar, 2014 [facility] [place] [facility] [address] [id number] [place] [address] 28 Mar, 2014 [facility] [place] [facility] [address] [id number] [place] [address] 28 Mar, 2014 [facility] [place] [facility] [address] [id number], [place] [address] 27 Mar, 2014 [facility] [place] [facility] [address] [id number], [place] [address] 27 Mar, 2014 [facility] [place] [facility] [address] [id number] [place] [address] Mar, [facility] [place] [facility] [address] [id number] [place] [address] Mar, [facility] [place] [facility] [address] [id number] [place] [address] 16 Mar, 2014 [facility] [place] [facility] [address] [id number] [place] [address] Mar, [facility] [place] [facility] [address] [id number] [place] [address] Mar, [facility] [place] [facility] [address] [id number] [place] [address] Mar, [facility] [place] [facility] [address] [id number] [place] [address] Mar, [facility] [place] [facility] [address] [id number] [place] [address] Mar, [facility] [place] [facility] [address] [id number] [place] [address] Feb, [facility] [place] [facility] [address] [id number] [place] [address] Jan, [facility] [place] [facility] [address] [id number] [place] [address] Jan, [facility] [place] [facility] [address] [id number] [place] [address] Jan, [facility] [place] [facility] [address] [id number] [place] [address] Jan, [facility] [place] [facility] [address] [id number] [place] [address] Jan, [facility] [place] [facility] [address] [id number] [place] [address] Jan, [facility] [place] [facility] [address] [id number] [place] [address] Dec, [facility] [place] [facility] [address] [id number] [place] [address] Dec, [facility] [place] [facility] [address] [id number] [place] [address] Dec, [facility] [place] [facility] [address] [id number] [place] [address] Dec, [facility] [place] [facility] [address] [id number] [place] [address] Dec, [facility] [place] [facility] [address] [id number] [place] [address] Dec, [facility] [place] [facility] [address] [id number] [place] [address] Dec, [facility] [place] [facility] [address] [id number] [place] [address] Dec, [facility] [place] [facility] [address] [id number] [place] [address] Dec, [facility] [place] [facility] [address] [id number] [place] [address] Dec, [facility] [place] [facility] [address] [id number] [place] [address] Nov, [facility] [place] [facility] [address] [id number] [place] [address] Nov, [facility] [place] [facility] [address] [id number] [place] [address] October, [facility] [place] [facility] [address] [id number] [place] [address] October, [facility] [place] [facility] [address] [id number] [place] [address] October, [facility] [place] [facility] [address] [id number] [place] [address] October, [facility] [place] [facility] [address] [id number] [place] [address] October, [facility] [place] [facility] [address] [id number] [place] [address] October, [facility] [place] [facility] [address] [id number] [place] [address] October, [facility] [place] [facility] [address] [id number] [place] [address] October, [facility] [place] [facility] [address] [id number] [place] [address] October, [facility] [place] [facility] [address] [id number] [place] [address] October, [facility] [place] [facility] [address] [id number] [place] [address] October, [facility] [place] [facility] [address] [id number] [place] [address] October, [facility] [place] [facility] [address] [id number] [place] [address] October, [facility] [place] [facility] [address] [id number] [place] [address] October, [facility] [place] [facility] [address] [id number] [place] [address] October, [facility] [place] [facility] [address] [id number] [place] [address] October, [facility] [place] [facility] [address] [id number] [place] [address] Sep, [facility] [place] [facility] [address] [id number] [place] [address] Sep, [facility] [place] [facility] [address] [id number] [place] [address] Aug, [facility] [place] [facility] [address] [id number] [place] [address] Aug, [facility] [place] [facility] [address] [id number] [place] [address] Aug, [facility] [place] [facility] [address] [id number] [place] [address] Aug, [facility] [place] [facility] [address] [id number] [place] [address] Aug, [facility] [place] [facility] [address] [id number] [place] [address] Aug, [facility] [place] [facility] [address] [id number] [place] [address] Jul, [facility] [place] [facility] [address] [id number] [place] [address] Jul, [facility] [place] [facility] [address] [id number] [place] [address] Jul, [facility] [place] [facility] [address] [id number] [place] [address] Jul, [facility] [place] [facility] [address] [id number] [place] [address] Jul, [facility] [place] [facility] [address] [facility] [id number] [place] [address] Jul, [facility] [place] [facility] [address] [facility] [id number] [place] [address] Jul, [facility] [place] [facility] [address] [facility] [id number] [place] [address] Jul, [facility] [place] [facility] [address] [facility] [id number] [place] [address] Jul, [facility] [place] [facility] [address] [facility] [id number] [place] [address] Jul, [facility] [place] [facility] [address] [facility] [id number] [place] [address] Jul, [facility] [place] [facility] [address] [facility] [id number] [place] [address] Jul, [facility] [place] [facility] [address] [id number] [place] [address] Jul, [facility] [place] [facility] [address] [facility] [id number] [place] [address] Jun, [facility] [place] [facility] [address] [id number] [place] [address] Jun, [facility] [address] [id number] [place] [address] Jun, [facility] [place] [facility] [address] [id number] [place] [address] Jun, [facility] [place] [facility] [address] [id number] [place] [address] Jun, [facility] [place] [facility] [address] [id number] [place] [address] Jun, [facility] [place] [facility] [address] [id number] [place] [address] Jun, [facility] [place] [facility] [address] [id number] [place] [address] Jun, [facility] [place] [facility] [address] [id number] [place] [address] Jun, [facility] [place] [facility] [address] [id number] [place] [address] Jun, [facility] [place] [facility] [address] [id number] [place] [address] Jun, [facility] [place] [facility] [address] [facility] [id number] [place] [address] Jun, [facility] [place] [facility] [address] [id number] [place] [address] Jun, [facility] [place] [facility] [address] [id number] [place] [address] May, [facility] [place] [facility] [address] [id number] [place] [address] May, [facility] [place] [facility] [address] [id number] [place] [address] May, [facility] [place] [facility] [address] [id number] [place] [address] May, [facility] [place] [facility] [address] [id number] [place] [address] Apr, [facility] [place] [facility] [address] [id number] [place] [address] Apr, [facility] [place] [facility] [address] [id number] [place] [address] Apr, [facility] [place] [facility] [address] [id number] [place] [address] Apr, [facility] [address] [id number] [place] [address] Apr, [facility] [place] [facility] [address] [id number] [place] [address] Apr, [facility] [address] [id number] [place] [address] Apr, [facility] [place] [facility] [address] [id number] [place] [address] Apr, [facility] [place] [facility] [address] [id number] [place] [address] Apr, [facility] [place] [facility] [address] [id number] [place] [address] Apr, [facility] [place] [facility] [address] [id number] [place] [address] Apr, [facility] [place] [facility] [address] [id number] [place] [address] Apr, [facility] [place] [facility] [address] [id number] [place] [address] Apr, [facility] [place] [facility] [address] [id number] [place] [address] Apr, [facility] [place] [facility] [address] [id number] [place] [address] Apr, [facility] [place] [facility] [address] [id number] [place] [address] 06 Apr, 2013 [facility] [place] [facility] [address] [id number] [place] [address] 30 Mar, 2013 [facility] [place] [facility] [address] [id number] [place] [address] 30 Mar, 2013 [facility] [place] [facility] [address] [id number] [place] [address] 16 Mar, 2013 [facility] [place] [facility] [address] [id number] [place] [address] 16 Mar, 2013 [facility] [place] [facility] [address] [id number] [place] [address] 14 Mar, 2013 [facility] [place] [facility] [address] [id number] [place] [address] 14 Mar, 2013 [facility] [place] [facility] [address] [id number] [place] [address] 10 Mar, 2013 [facility] [place] [facility] [address] [id number] [place] [address] 08 Mar, 2013 [facility] [place] [facility] [address] [id number] [place] [address] 07 Mar, 2013 [facility] [place] [facility] [address] [id number] [place] [address] 26 Feb, 2013 [facility] [place] [facility] [address] [id number] [place] [address] 18 Feb, 2013 [facility] [place] [facility] [address] [id number] [place] [address] 10 Feb, 2013 [facility] [place] [facility] [address] [id number] [place] [address] 09 Feb, 2013 [facility] [place] [facility] [address] [id number] [place] [address] 30 Jan, 2013 [facility] [place] [facility] [address] [id number] [place] [address] Jan, [facility] [place] [facility] [address] [id number] [place] [address] Jan, [facility] [address] [id number] [place] [address] Jan, [facility] [place] [facility] [address] [id number] [place] [address] Jan, [facility] [address] [id number] [place] [address] Dec, [facility] [place] [facility] [address] [id number] [place] [address] Dec, [facility] [address] [id number] [place] [address] Jul, [facility] [place] [facility] [address] [id number] [place] [address] Jul, [facility] [place] [facility] [address] [id number] [place] [address] Jul, [facility] [address] [id number] [place] [address] Jun, [facility] [address] [id number] [place] [address] Jun, [facility] [address] [id number] [place] [address] Apr, [facility] [place] [facility] [address] [id number] [place] [address] Apr, [facility] [place] [facility] [address] [id number] [place] [address] Apr, [facility] [place] [facility] [address] [id number] [place] [address] Apr, [facility] [place] [facility] [address] [id number] [place] [address] Apr, [facility] [place] [facility] [address] [id number] [place] [address] Apr, [facility] [place] [facility] [address] [id number] [place] [address] Apr, [facility] [place] [facility] [address] [id number] [place] [address] Apr, [facility] [place] [facility] [address] [id number] [place] [address] Apr, [facility] [place] [facility] [address] [id number] [place] [address] Mar, [facility] [place] [facility] [address] [id number] [place] [address] Mar, [facility] [place] [facility] [address] [id number] [place] [address] Mar, [facility] [place] [facility] [address] [id number] [place] [address] Mar, [facility] [place] [facility] [address] [id number], [place] [address] Mar, [facility] [place] [facility] [address] [id number] [place] [address] Mar, [facility] [place] [facility] [address] [id number], [place] [address] 26 Feb, 2012 [facility] [place] [facility] [address] [id number], [place] [address] 25 Sep2011 [facility] [place] [facility] [address] [id number], [place] [address] 25 Sep2011 [facility] [place] [facility] [address] [id number], [place] [address] 25 Sep2011 [facility] [place] [facility] [address] [id number], [place] [address] 25 Sep2011 [facility] [place] [facility] [address] [id number], [place] [address] 19 Feb, 2012 [facility] [place] [facility] [address] [facility] [id number] [place] [address] 12 Feb, 2012 IMMUNIZATIONS No Known Immunizations SOCIAL HISTORY Never Assessed REASON FOR VISIT doppler follow up PLAN OF CARE Activity Details Follow Up 2 Months Reason: VITAL SIGNS MEDICATIONS Unknown Medications RESULTS No Results PROCEDURES Procedure Date Ordered Result Body Site Stable Visit (10 minutes) Apr 21, 2018 INSTRUCTIONS MEDICATIONS ADMINISTERED No Known Medications
--- OUTSIDE RECORDS SUMMARY | 2019-01-03 12:56 | XMS REPORT ---
Author Author CONTRERAS QUINN [facility] Address [address] [place] [address] Care Team Providers Care Electrophysiology Nurse Practitioner Name Role Phone CONTRERAS QUINN Unavailable PROBLEMS Type Condition ICD9-CM Code TQV40-MG Code Onset Dates Condition Status SNOMED Code Problem Essential (primary) hypertension I10 Active 98114373 Problem Age-related osteoporosis without current pathological fracture M81.0 Active 95192733 Problem Difficulty in walking, not elsewhere classified R26.2 Active 821865194 Problem FDC current use of insulin Z79.4 Active 691598115 Problem Type 2 diabetes mellitus with diabetic neuropathy, unspecified E11.40 Active 79921252 Problem Other chronic pain G89.29 Active 27177903 Problem Muscle weakness (generalized) M62.81 Active 89090392 Problem Morbid (severe) obesity due to excess calories E66.01 Active 463962101 Problem Other hereditary and idiopathic neuropathies G60.8 Active 947290233 Problem Allergic rhinitis, unspecified seasonality, unspecified trigger J30.9 Active 41984947 Problem 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 Active 688865513 Problem Type 2 diabetes mellitus without complication, without long-term current use of insulin E11.9 Active 847071673 Problem Hyperlipidemia, unspecified hyperlipidemia type E78.5 Active 98739481 Problem Benign prostatic hyperplasia with lower urinary tract symptoms, symptom details unspecified N40.1 Active 600277188 Problem Insomnia, unspecified type G47.00 Active 223844989 Problem Right foot drop M21.371 Active [id number] Problem Constipation, unspecified constipation type K59.00 Active 14263607 ALLERGIES No Information ENCOUNTERS Encounter Location Date Diagnosis [facility] [address], [place] [id number] Feb, Type 2 diabetes mellitus with diabetic neuropathy, unspecified E11.40 ; FDC current use of insulin Z79.4 and Abrasion foot/toe S90.819A [facility] [address] [facility] [id number] [place] [address] Feb, [facility] [address] [id number] [place] [address] Jun, [facility] [address] [id number] [place] [address] Sep, [facility] [address] [id number] [place] [address] Feb, [facility] [address] [id number] [place] [address] Dec, [facility] [address] [id number] [place] [address] Nov, [facility] [address] [facility] [id number] [place] [address] Nov, [facility] [address] [id number] October, Diabetes 250.00 [facility] [address] [id number] [place] [address] October, [facility] [address] [id number] [address] Sep, [facility] [address] [id number] [address] Sep, [facility] [address] [facility] [id number] [place] [address] Jul, [facility] [address] [id number] [address] Jul, [facility] [address] [id number] [place] [address] Jul, [facility] [address] [id number] Jul, [facility] [address] [facility] [id number] [address] Jul, [facility] [address] [id number] [place] [address] Jul, [facility] [address] [facility] [id number] Jul, [facility] [address] [id number] [place] [address] Jun, [facility] [address] [id number] [place] [address] Jun, [facility] [address] [facility] [id number] Jun, [facility] [address] [id number] [place] [address] Jun, [facility] [address] [id number] [place] [address] Jun, [facility] [address] [id number] [place] [address] Jun, [facility] [address] [id number] [place] [address] Jun, [facility] [address] [id number] [place] [address] Jun, [facility] [address] [id number] [place] [address] Jun, [facility] [address] [id number] [place] [address] Jun, [facility] [address] [id number] [place] [address] May, [facility] [address] [id number] [place] [address] May, [facility] [address] [id number] [place] [address] May, [facility] [address] [id number] [place] [address] May, [facility] [place] [facility] [address] [id number] [place] [address] May, [facility] [place] [facility] [address] [id number] [place] [address] Apr, [facility] [place] [facility] [address] [id number] [place] [address] Apr, [facility] [place] [facility] [address] [id number] [place] [address] Apr, [facility] [place] [facility] [address] [id number] [place] [address] Mar, [facility] [place] [facility] [address] [id number] [place] [address] Mar, [facility] [place] [facility] [address] [id number] [place] [address] Mar, [facility] [place] [facility] [address] [id number] [place] [address] Mar, [facility] [place] [facility] [address] [id number] [place] [address] Mar, [facility] [place] [facility] [address] [id number] [place] [address] Mar, [facility] [place] [facility] [address] [id number] [place] [address] Mar, [facility] [place] [facility] [address] [id number] [address] Mar, [facility] [place] [facility] [address] [id number] [place] [address] Mar, [facility] [place] [facility] [address] [id number] [place] [address] Mar, [facility] [place] [facility] [address] [id number] [place] [address] Mar, [facility] [place] [facility] [address] [id number] [place] [address] Mar, [facility] [place] [facility] [address] [id number] [place] [address] Mar, [facility] [place] [facility] [address] [id number] [place] [address] Mar, [facility] [place] [facility] [address] [id number] [place] [address] Feb, [facility] [place] [facility] [address] [id number] [place] [address] Jan, [facility] [place] [facility] [address] [id number] [place] [address] Jan, [facility] [place] [facility] [address] [id number] [place] [address] Jan, [facility] [place] [facility] [address] [id number] [place] [address] Jan, [facility] [place] [facility] [address] [id number] [place] [address] Jan, [facility] [place] [facility] [address] [id number] [place] [address] Jan, [facility] [place] [facility] [address] [id number] [place] [address] Dec, [facility] [place] [facility] [address] [id number] [place] [address] Dec, [facility] [place] [facility] [address] [id number] [place] [address] Dec, [facility] [place] [facility] [address] [id number] [place] [address] Dec, [facility] [place] [facility] [address] [id number] [place] [address] Dec, [facility] [place] [facility] [address] [id number] [place] [address] Dec, [facility] [place] [facility] [address] [id number] [place] [address] Dec, [facility] [place] [facility] [address] [id number] [place] [address] Dec, [facility] [place] [facility] [address] [id number] [place] [address] Dec, [facility] [place] [facility] [address] [id number] [place] [address] Dec, [facility] [place] [facility] [address] [id number] [place] [address] Nov, [facility] [place] [facility] [address] [id number] [place] [address] Nov, [facility] [place] [facility] [address] [id number] [place] [address] October, [facility] [place] [facility] [address] [id number] [place] [address] October, [facility] [place] [facility] [address] [id number] [place] [address] October, [facility] [place] [facility] [address] [id number] [place] [address] October, [facility] [place] [facility] [address] [id number] [place] [address] October, [facility] [place] [facility] [address] [id number] [place] [address] October, [facility] [place] [facility] [address] [id number] [place] [address] October, [facility] [place] [facility] [address] [id number] [place] [address] October, [facility] [place] [facility] [address] [id number] [place] [address] October, [facility] [place] [facility] [address] [id number] [place] [address] October, [facility] [place] [facility] [address] [id number] [place] [address] October, [facility] [place] [facility] [address] [id number] [place] [address] October, [facility] [place] [facility] [address] [id number] [place] [address] October, [facility] [place] [facility] [address] [id number] [place] [address] October, [facility] [place] [facility] [address] [id number] [place] [address] October, [facility] [place] [facility] [address] [id number] [place] [address] October, [facility] [place] [facility] [address] [id number] [place] [address] Sep, [facility] [place] [facility] [address] [id number] [place] [address] Sep, [facility] [place] [facility] [address] [id number] [place] [address] Aug, [facility] [place] [facility] [address] [id number] [place] [address] Aug, [facility] [place] [facility] [address] [id number] [place] [address] Aug, [facility] [place] [facility] [address] [id number] [place] [address] Aug, [facility] [place] [facility] [address] [id number] [place] [address] Aug, [facility] [place] [facility] [address] [id number] [place] [address] Aug, [facility] [place] [facility] [address] [id number] [place] [address] Jul, [facility] [place] [facility] [address] [id number] [place] [address] Jul, [facility] [place] [facility] [address] [id number] [place] [address] Jul, [facility] [place] [facility] [address] [id number] [place] [address] Jul, [facility] [place] [facility] [address] [id number] [place] [address] Jul, [facility] [place] [facility] [address] [id number] [place] [address] Jul, [facility] [place] [facility] [address] [id number] [place] [address] Jul, [facility] [place] [facility] [address] [facility] [id number] [place] [address] Jul, [facility] [place] [facility] [address] [id number] [place] [address] Jul, [facility] [place] [facility] [address] [facility] [id number] [place] [address] Jul, [facility] [place] [facility] [address] [facility] [id number] [place] [address] Jul, [facility] [place] [facility] [address] [facility] [id number] [place] [address] Jul, [facility] [place] [facility] [address] [id number] [place] [address] Jul, [facility] [place] [facility] [address] [facility] [id number] [place] [address] Jun, [facility] [place] [facility] [address] [id number] [place] [address] Jun, [facility] [place] [facility] [address] [facility] [id number] [place] [address] Jun, [facility] [place] [facility] [address] [facility] [id number] [place] [address] Jun, [facility] [address] [id number] [place] [address] Jun, [facility] [place] [facility] [address] [id number] [place] [address] Jun, [facility] [place] [facility] [address] [id number] [place] [address] Jun, [facility] [place] [facility] [address] [id number] [place] [address] Jun, [facility] [place] [facility] [address] [id number] [place] [address] Jun, [facility] [place] [facility] [address] [id number] [place] [address] Jun, [facility] [place] [facility] [address] [id number] [place] [address] Jun, [facility] [place] [facility] [address] [id number] [place] [address] Jun, [facility] [place] [facility] [address] [id number] [place] [address] Jun, [facility] [place] [facility] [address] [id number] [place] [address] May, [facility] [place] [facility] [address] [id number] [place] [address] May, [facility] [place] [facility] [address] [id number] [place] [address] May, [facility] [place] [facility] [address] [id number] [place] [address] May, [facility] [place] [facility] [address] [id number] [place] [address] Apr, [facility] [place] [facility] [address] [id number] [place] [address] Apr, [facility] [place] [facility] [address] [id number] [place] [address] 21 Apr, 2013 [facility] [place] [facility] [address] [id number] [place] [address] 15 Apr, 2013 [facility] [place] [facility] [address] [id number] [place] [address] 14 Apr, 2013 [facility] [place] [facility] [address] [id number] [place] [address] 14 Apr, 2013 [facility] [place] [facility] [address] [id number] [place] [address] 08 Apr, 2013 [facility] [place] [facility] [address] [id number] [place] [address] 08 Apr, 2013 [facility] [place] [facility] [address] [id number] [place] [address] Apr, [facility] [place] [facility] [address] [id number] [place] [address] Apr, [facility] [place] [facility] [address] [id number] [place] [address] Apr, [facility] [place] [facility] [address] [id number] [place] [address] Apr, [facility] [place] [facility] [address] [id number] [place] [address] Apr, [facility] [place] [facility] [address] [id number] [place] [address] Apr, [facility] [place] [facility] [address] [id number] [place] [address] Apr, [facility] [place] [facility] [address] [id number] [place] [address] Apr, [facility] [place] [facility] [address] [id number] [place] [address] Mar, [facility] [place] [facility] [address] [id number] [place] [address] Mar, [facility] [place] [facility] [address] [id number] [place] [address] 16 Mar, 2013 [facility] [place] [facility] [address] [id number] [place] [address] 16 Mar, 2013 [facility] [place] [facility] [address] [id number] [place] [address] 14 Mar, 2013 [facility] [place] [facility] [address] [id number] [place] [address] 14 Mar, 2013 [facility] [place] [facility] [address] [id number] [place] [address] 10 Mar, 2013 [facility] [place] [facility] [address] [id number] [place] [address] 08 Mar, 2013 [facility] [place] [facility] [address] [id number] [place] [address] 07 Mar, 2013 [facility] [place] [facility] [address] [id number] [place] [address] 26 Feb, 2013 [facility] [place] [facility] [address] [id number] [place] [address] 18 Feb, 2013 [facility] [place] [facility] [address] [id number] [place] [address] 10 Feb, 2013 [facility] [place] [facility] [address] [id number] [place] [address] 09 Feb, 2013 [facility] [place] [facility] [address] [id number] [place] [address] 30 Jan, 2013 [facility] [place] [facility] [address] [id number] [place] [address] Jan, [facility] [place] [facility] [address] [id number] [place] [address] Jan, [facility] [place] [facility] [address] [id number] [place] [address] Jan, [facility] [place] [facility] [address] [id number] [place] [address] Jan, [facility] [place] [facility] [address] [id number] [place] [address] Dec, [facility] [place] [facility] [address] [id number] [place] [address] Dec, [facility] [place] [facility] [address] [id number] [place] [address] Jul, [facility] [place] [facility] [address] [id number] [place] [address] Jul, [facility] [place] [facility] [address] [id number] [place] [address] Jul, [facility] [place] [facility] [address] [id number] [place] [address] Jun, [facility] [place] [facility] [address] [id number] [place] [address] Jun, [facility] [place] [facility] [address] [id number] [place] [address] Apr, [facility] [place] [facility] [address] [id number] [place] [address] Apr, [facility] [place] [facility] [address] [id number] [place] [address] Apr, [facility] [place] [facility] [address] [id number] [place] [address] Apr, [facility] [place] [facility] [address] [id number] [place] [address] Apr, [facility] [place] [facility] [address] [id number] [place] [address] Apr, [facility] [place] [facility] [address] [id number] [place] [address] Apr, [facility] [place] [facility] [address] [id number] [place] [address] Apr, [facility] [address] [facility] [id number] [place] [address] Apr, [facility] [address] [facility] [id number] [place] [address] Mar, [facility] [address] [facility] [id number] [place] [address] Mar, [facility] [address] [facility] [id number] [place] [address] Mar, [facility] [address] [facility] [id number] [place] [address] Mar, [facility] [address] [facility] [id number] [place] [address] Mar, [facility] [id number] [address] Mar, [facility] [id number] [address] Feb, [facility] [id number] [address] Feb, [facility] [id number] [address] Feb, [facility] [id number] [address] Feb, [facility] [address] [address] Feb, [facility] [id number] [address] Feb, [facility] [address] [address] Feb, IMMUNIZATIONS No Known Immunizations SOCIAL HISTORY Never Assessed REASON FOR VISIT New patient PLAN OF CARE Activity Details Follow Up prn Reason: VITAL SIGNS MEDICATIONS Medication Instructions Dosage Frequency Start Date End Date Duration Status Enalapril Maleate Orally 2 times a day 1 tablet 12h 08 Dec, 2014 Active Neurontin 300 MG Orally twice a day 1 capsule 12h Active Flomax 0.4 MG Orally Once a day 1 capsule 24h 30 day(s) Active metformin 1,000 mg take 1 tablet by Oral route 2 times per day with morning and evening meals for diabetes Mar, Active Milk of Magnesia 1200 MG/15ML 30 ml as needed Active Metoprolol Tartrate 50 mg take 1 tablet by Oral route 1 time per day with meals Apr, Active Cepacol Sore Throat 10-2.1 MG Mouth/Throat every 2 hrs 1 lozenge as needed Active Proscar 5 MG Orally Once a day 1 tablet 24h 30 day(s) Active Lipitor 10 MG Orally Once a day 1 tablet 24h 30 day(s) Active Levemir 100 UNIT/ML Subcutaneous 2 times a day 28 units 12h Active Hemorrhoidal 1-0.25-14.4-15 % Rectal Four times a day 1 application to affected area as needed 6h Active Colace 100 mg Orally twice a day 1 capsule 12h Active loperamide 2 mg take 2 tablets (4 mg) by oral route after 1st loose stool and 1 tablet (2 mg) after each next bowel movement; do not exceed 16 mg in 24hrs Apr, Active NyQuil Severe Cold/Flu 5-6.25-10-325 MG/15ML Orally every 24 hrs 30 ml as needed Active Ketoconazole 2 % Externally to abdominal folds twice a day 1 application to affected area 12h Active Tears Naturale II 1 drop in both eyes 12h Active Aspirin 81 mg take 1 tablet (81 mg) by oral route once daily Feb, Active Lopressor 50 MG Orally Twice a day 1 tablet with food 12h 30 day(s) Active Myrbetriq 50 MG Orally Once a day 1 tablet 24h 30 day(s) Active Systane Preservative Free 0.4-0.3 % Ophthalmic every 4 hrs 1 dropp in both eyes as needed 4h Active Lasix 20 MG Orally Once a day 1 tablet 24h 30 day(s) Active RESULTS No Results PROCEDURES Procedure Date Ordered Result Body Site [facility] VISIT ESTABLISHED PATIENT Mar 17, 2018 INSTRUCTIONS MEDICATIONS ADMINISTERED No Known Medications
--- OUTSIDE RECORDS SUMMARY | 2019-01-03 12:56 | XMS REPORT ---
Author Author CONTRERAS QUINN [facility] Address [address] [place] [address] Care Team Providers Care Warehouse Assistant Name Role Phone CONTRERAS QUINN Unavailable PROBLEMS Type Condition ICD9-CM Code SAO66-NM Code Onset Dates Condition Status SNOMED Code Problem Essential (primary) hypertension I10 Active 07324512 Problem Age-related osteoporosis without current pathological fracture M81.0 Active 89191416 Problem Difficulty in walking, not elsewhere classified R26.2 Active 300895004 Problem MCC current use of insulin Z79.4 Active 069741572 Problem Type 2 diabetes mellitus with diabetic neuropathy, unspecified E11.40 Active 38855716 Problem Other chronic pain G89.29 Active 48386380 Problem Muscle weakness (generalized) M62.81 Active 15534227 Problem Morbid (severe) obesity due to excess calories E66.01 Active 986124299 Problem Other hereditary and idiopathic neuropathies G60.8 Active 191507067 Problem Allergic rhinitis, unspecified seasonality, unspecified trigger J30.9 Active 07203151 Problem 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 Active 164529682 Problem Type 2 diabetes mellitus without complication, without long-term current use of insulin E11.9 Active 486632357 Problem Hyperlipidemia, unspecified hyperlipidemia type E78.5 Active 58048229 Problem Benign prostatic hyperplasia with lower urinary tract symptoms, symptom details unspecified N40.1 Active 617961512 Problem Insomnia, unspecified type G47.00 Active 368703550 Problem Right foot drop M21.371 Active [id number] Problem Constipation, unspecified constipation type K59.00 Active 60757453 ALLERGIES No Information ENCOUNTERS Encounter Location Date Diagnosis [facility] [address] [facility] [id number], [place] [address] Mar, Extremity cyanosis [facility]23.0 [facility] [address], [place] [id number] Feb, Type 2 diabetes mellitus with diabetic neuropathy, unspecified E11.40 ; 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 and Abrasion foot/toe S90.819A [facility] [address], [place] [address] Feb, [facility] [address], [place] [address] Jun, [facility] [id number] [place] [address] Sep, [facility] [id number] [place] [address] Feb, [facility] [id number] [place] [address] Dec, [facility] [id number] [place] [address] Nov, [facility] [id number] [place] [address] Nov, [facility] [address] [place] [id number] October, Diabetes 250.00 [facility] [address], [place] [address] October, [facility] [address], [place] [address] Sep, [facility] [address], [place] [address] Sep, [facility] [address], [place] [address] Jul, [facility] [address], [place] [address] Jul, [facility] [id number], [place] [address] Jul, [facility] [address] [place] [id number] Jul, [facility] [address] [id number] [place] [address] Jul, [facility] [address] [id number] [place] [address] Jul, [facility] [address] [facility] [id number] Jul, [facility] [address] [id number], [place] [address] Jun, [facility] [address] [id number], [place] [address] Jun, [facility] [address] [facility] [id number] Jun, [facility] [address] [id number], [place] [address] Jun, [facility] [address] [id number], [place] [address] Jun, [facility] [address] [id number], [place] [address] Jun, [facility] [address] [id number], [place] [address] Jun, [facility] [address] [id number], [place] [address] Jun, [facility] [address] [id number], [place] [address] Jun, [facility] [address] [id number], [place] [address] Jun, [facility] [address] [id number] [place] [address] May, [facility] [address] [id number], [place] [address] May, [facility] [address] [id number], [place] [address] May, [facility] [place] [facility] [address] [id number] [place] [address] May, [facility] [place] [facility] [address] [id number] [place] [address] May, [facility] [place] [facility] [address] [id number] [place] [address] Apr, [facility] [place] [facility] [address] [id number] [place] [address] Apr, [facility] [place] [facility] [address] [id number] [place] [address] Apr, [facility] [place] [facility] [address] [id number] [place] [address] Mar, [facility] [place] [facility] [address] [id number] [place] [address] Mar, [facility] [place] [facility] [address] [id number] [place] [address] Mar, [facility] [place] [facility] [address] [id number] [place] [address] 28 Mar, 2014 [facility] [place] [facility] [address] [id number] [place] [address] Mar, [facility] [place] [facility] [address] [id number] [place] [address] Mar, [facility] [place] [facility] [address] [id number] [place] [address] Mar, [facility] [place] [facility] [address] [id number] [place] [address] Mar, [facility] [place] [facility] [address] [id number] [place] [address] Mar, [facility] [place] [facility] [address] [id number] [place] [address] 16 Mar, 2014 [facility] [place] [facility] [address] [id number] [place] [address] Mar, [facility] [place] [facility] [address] [id number] [place] [address] Mar, [facility] [place] [facility] [address] [id number] [place] [address] Mar, [facility] [place] [facility] [address] [id number] [place] [address] Mar, [facility] [place] [facility] [address] [id number] [place] [address] Feb, [facility] [place] [facility] [address] [id number] [place] [address] Jan, [facility] [place] [facility] [address] [id number] [place] [address] Jan, [facility] [place] [facility] [address] [id number] [place] [address] Jan, [facility] [place] [facility] [address] [id number] [place] [address] Jan, [facility] [place] [facility] [address] [id number] [place] [address] Jan, [facility] [place] [facility] [address] [id number] [place] [address] Jan, [facility] [place] [facility] [address] [id number] [place] [address] Dec, [facility] [place] [facility] [address] [id number] [place] [address] Dec, [facility] [place] [facility] [address] [id number] [place] [address] Dec, [facility] [place] [facility] [address] [id number] [place] [address] Dec, [facility] [place] [facility] [address] [id number] [place] [address] Dec, [facility] [place] [facility] [address] [id number] [place] [address] Dec, [facility] [place] [facility] [address] [id number] [place] [address] Dec, [facility] [place] [facility] [address] [id number] [place] [address] Dec, [facility] [place] [facility] [address] [id number] [place] [address] Dec, [facility] [place] [facility] [address] [id number] [place] [address] Dec, [facility] [place] [facility] [address] [id number] [place] [address] Nov, [facility] [place] [facility] [address] [id number] [place] [address] Nov, [facility] [place] [facility] [address] [id number] [place] [address] October, [facility] [place] [facility] [address] [id number] [place] [address] October, [facility] [place] [facility] [address] [id number] [place] [address] October, [facility] [place] [facility] [address] [id number] [place] [address] October, [facility] [place] [facility] [address] [id number] [place] [address] October, [facility] [place] [facility] [address] [id number] [place] [address] October, [facility] [place] [facility] [address] [id number] [place] [address] October, [facility] [place] [facility] [address] [id number] [place] [address] October, [facility] [place] [facility] [address] [id number] [place] [address] October, [facility] [place] [facility] [address] [id number] [place] [address] October, [facility] [place] [facility] [address] [id number] [place] [address] October, [facility] [place] [facility] [address] [id number] [place] [address] October, [facility] [place] [facility] [address] [id number] [place] [address] October, [facility] [place] [facility] [address] [id number] [place] [address] October, [facility] [place] [facility] [address] [id number] [place] [address] October, [facility] [place] [facility] [address] [id number] [place] [address] October, [facility] [place] [facility] [address] [id number] [place] [address] Sep, [facility] [place] [facility] [address] [id number] [place] [address] Sep, [facility] [place] [facility] [address] [id number] [place] [address] Aug, [facility] [place] [facility] [address] [id number] [place] [address] Aug, [facility] [place] [facility] [address] [id number] [place] [address] Aug, [facility] [place] [facility] [address] [id number] [place] [address] Aug, [facility] [place] [facility] [address] [id number] [place] [address] Aug, [facility] [place] [facility] [address] [id number] [place] [address] Aug, [facility] [place] [facility] [address] [id number] [place] [address] Jul, [facility] [place] [facility] [address] [id number] [place] [address] Jul, [facility] [place] [facility] [address] [id number] [place] [address] Jul, [facility] [place] [facility] [address] [id number] [place] [address] Jul, [facility] [place] [facility] [address] [id number] [place] [address] Jul, [facility] [place] [facility] [address] [id number] [place] [address] Jul, [facility] [place] [facility] [address] [facility] [id number] [place] [address] Jul, [facility] [place] [facility] [address] [id number] [place] [address] Jul, [facility] [place] [facility] [address] [id number] [place] [address] Jul, [facility] [place] [facility] [address] [facility] [id number] [place] [address] Jul, [facility] [place] [facility] [address] [id number] [place] [address] Jul, [facility] [place] [facility] [address] [id number] [place] [address] Jul, [facility] [place] [facility] [address] [id number] [place] [address] Jul, [facility] [place] [facility] [address] [id number] [place] [address] Jun, [facility] [place] [facility] [address] [facility] [id number] [place] [address] Jun, [facility] [place] [facility] [address] [id number] [place] [address] Jun, [facility] [address] [id number] [place] [address] Jun, [facility] [place] [facility] [address] [id number] [place] [address] Jun, [facility] [place] [facility] [address] [id number] [place] [address] Jun, [facility] [place] [facility] [address] [id number] [place] [address] Jun, [facility] [place] [facility] [address] [id number] [place] [address] Jun, [facility] [place] [facility] [address] [id number] [place] [address] Jun, [facility] [address] [id number] [place] [address] Jun, [facility] [place] [facility] [address] [id number] [place] [address] Jun, [facility] [place] [facility] [address] [id number] [place] [address] Jun, [facility] [place] [facility] [address] [id number] [place] [address] Jun, [facility] [place] [facility] [address] [id number] [place] [address] May, [facility] [place] [facility] [address] [id number] [place] [address] May, [facility] [place] [facility] [address] [id number] [place] [address] May, [facility] [place] [facility] [address] [id number] [place] [address] May, [facility] [place] [facility] [address] [id number] [place] [address] Apr, [facility] [place] [facility] [address] [id number] [place] [address] Apr, [facility] [place] [facility] [address] [id number] [place] [address] Apr, [facility] [place] [facility] [address] [id number] [place] [address] 15 Apr, 2013 [facility] [place] [facility] [address] [id number] [place] [address] 14 Apr, 2013 [facility] [address] [id number] [place] [address] 14 Apr, 2013 [facility] [place] [facility] [address] [id number] [place] [address] 08 Apr, 2013 [facility] [address] [id number] [place] [address] Apr, [facility] [address] [id number] [place] [address] Apr, [facility] [place] [facility] [address] [id number] [place] [address] Apr, [facility] [place] [facility] [address] [id number] [place] [address] Apr, [facility] [place] [facility] [address] [id number] [place] [address] Apr, [facility] [place] [facility] [address] [id number], [place] [address] Apr, [facility] [place] [facility] [address] [id number] [place] [address] Apr, [facility] [place] [facility] [address] [id number] [place] [address] Apr, [facility] [place] [facility] [address] [id number], [place] [address] Apr, [facility] [place] [facility] [address] [id number], [place] [address] 30 Mar, 2013 [facility] [place] [facility] [address] [id number] [place] [address] 30 Mar, 2012 [facility] [place] [facility] [address] [id number] [place] [address] 16 Mar, 2013 [facility] [place] [facility] [address] [id number] [place] [address] 16 Mar, 2013 [facility] [place] [facility] [address] [id number] [place] [address] 14 Mar, 2013 [facility] [place] [facility] [address] [id number] [place] [address] 14 Mar, 2013 [facility] [place] [facility] [address] [id number] [place] [address] 10 Mar, 2013 [facility] [place] [facility] [address] [id number] [place] [address] 08 Mar, 2013 [facility] [place] [facility] [address] [id number] [place] [address] 07 Mar, 2013 [facility] [place] [facility] [address] [id number] [place] [address] 26 Feb, 2013 [facility] [place] [facility] [address] [id number] [place] [address] 18 Feb, 2013 [facility] [place] [facility] [address] [id number] [place] [address] 10 Feb, 2012 [facility] [place] [facility] [address] [id number] [place] [address] 09 Feb, 2013 [facility] [place] [facility] [address] [id number] [place] [address] 30 Jan, 2013 [facility] [place] [facility] [address] [id number] [place] [address] Jan, [facility] [place] [facility] [address] [id number] [place] [address] Jan, [facility] [place] [facility] [address] [id number] [place] [address] Jan, [facility] [address] [id number] [place] [address] Jan, [facility] [place] [facility] [address] [id number] [place] [address] Dec, [facility] [place] [facility] [address] [id number] [place] [address] Dec, [facility] [place] [facility] [address] [id number] [place] [address] Jul, [facility] [place] [facility] [address] [id number] [place] [address] Jul, [facility] [place] [facility] [address] [id number] [place] [address] Jul, [facility] [place] [facility] [address] [id number] [place] [address] Jun, [facility] [place] [facility] [address] [id number] [place] [address] Jun, [facility] [address] [id number] [place] [address] Apr, [facility] [address] [id number] [place] [address] Apr, [facility] [place] [facility] [address] [id number] [place] [address] Apr, [facility] [place] [facility] [address] [id number] [place] [address] Apr, [facility] [place] [facility] [address] [id number] [place] [address] 14 Apr, 2012 [facility] [place] [facility] [address] [id number] [place] [address] 14 Apr, 2012 [facility] [place] [facility] [address] [id number] [place] [address] Apr, [facility] [address] [facility] [id number], [place] [address] Apr, [facility] [address] [facility] [id number], [place] [address] Apr, [facility] [address] [facility] [id number], [place] [address] Mar, [facility] [address] [facility] [id number], [place] [address] Mar, [facility] [address] [facility] [id number], [place] [address] Mar, [facility] [address] [facility] [id number], [place] [address] Mar, [facility] [address] [id number], [place] [address] Mar, [facility] [address] [facility] [id number], [place] [address] Mar, [facility] [address] [id number], [place] [address] Feb, [facility] [address] [id number], [place] [address] Feb, [facility] [id number], [place] [address] Feb, [facility] [address] [facility] [id number], [place] [address] Feb, [facility] [address] [facility] [id number], [place] [address] Feb, [facility] [address] [facility] [id number], [place] [address] Feb, [facility] [address] [id number], [place] [address] Feb, IMMUNIZATIONS No Known Immunizations SOCIAL HISTORY Never Assessed REASON FOR VISIT Request Return Call PLAN OF CARE Activity Details Pending Test Ultrasound : Arterial Doppler, Lower Extremity VITAL SIGNS MEDICATIONS Unknown Medications RESULTS No Results PROCEDURES No Known procedures INSTRUCTIONS MEDICATIONS ADMINISTERED No Known Medications
--- OUTSIDE RECORDS SUMMARY | 2019-01-03 12:57 | XMS REPORT ---
Author Author CONTRERAS QUINN [facility] Address [address] [place] [address] Care Team Providers Care Supervisor [employer] Department Name Role Phone CONTRERAS QUINN Unavailable PROBLEMS Type Condition ICD9-CM Code HSZ50-NE Code Onset Dates Condition Status SNOMED Code Problem Essential (primary) hypertension I10 Active 29734185 Problem Age-related osteoporosis without current pathological fracture M81.0 Active 00148015 Problem Difficulty in walking, not elsewhere classified R26.2 Active 374783327 Problem detention current use of insulin Z79.4 Active 493795276 Problem Type 2 diabetes mellitus with diabetic neuropathy, unspecified E11.40 Active 97516359 Problem Other chronic pain G89.29 Active 00830329 Problem Muscle weakness (generalized) M62.81 Active 30622097 Problem Morbid (severe) obesity due to excess calories E66.01 Active 272008989 Problem Other hereditary and idiopathic neuropathies G60.8 Active 449275697 Problem Allergic rhinitis, unspecified seasonality, unspecified trigger J30.9 Active 17385639 Problem 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 Active 102898015 Problem Type 2 diabetes mellitus without complication, without long-term current use of insulin E11.9 Active 458795674 Problem Hyperlipidemia, unspecified hyperlipidemia type E78.5 Active 85905360 Problem Benign prostatic hyperplasia with lower urinary tract symptoms, symptom details unspecified N40.1 Active 009250123 Problem Insomnia, unspecified type G47.00 Active 033580785 Problem Right foot drop M21.371 Active [id number] Problem Constipation, unspecified constipation type K59.00 Active 93021958 ALLERGIES No Information ENCOUNTERS Encounter Location Date Diagnosis [facility] [address], [place] [id number] Feb, Type 2 diabetes mellitus with diabetic neuropathy, unspecified E11.40 ; detention current use of insulin Z79.4 and Abrasion foot/toe S90.819A [facility] [address] [facility] [id number] [place] [address] Feb, [facility] [address] [id number] [place] [address] Jun, [facility] [address] [id number] [place] [address] Sep, [facility] [address] [id number] [place] [address] Feb, [facility] [address] [id number] [place] [address] Dec, [facility] [address] [id number] [place] [address] Nov, [facility] [address] [facility] [id number] [place] [address] Nov, [facility] [address] [place] [address] October, Diabetes 250.00 [facility] [address] [id number] [place] [address] October, [facility] [address] [id number] [place] [address] Sep, [facility] [address] [id number] [address] Sep, [facility] [address] [facility] [id number] [place] [address] Jul, [facility] [address] [id number] [place] [address] Jul, [facility] [address] [id number] [place] [address] Jul, [facility] [address] [id number] Jul, [facility] [address] [facility] [id number] [place] [address] Jul, [facility] [address] [id number] [place] [address] Jul, [facility] [address] [facility] [id number] Jul, [facility] [address] [id number] [place] [address] Jun, [facility] [address] [id number] [place] [address] Jun, [facility] [address] [facility] [id number] Jun, [facility] [address] [id number] [place] [address] Jun, [facility] [address] [id number] [place] [address] Jun, [facility] [address] [id number] [place] [address] Jun, [facility] [address] [id number] [place] [address] Jun, [facility] [address] [id number] [place] [address] Jun, [facility] [address] [id number] [place] [address] Jun, [facility] [address] [id number] [place] [address] Jun, [facility] [address] [id number] [place] [address] May, [facility] [address] [id number] [place] [address] May, [facility] [address] [id number] [place] [address] May, [facility] [address] [id number] [place] [address] May, [facility] [place] [facility] [address] [id number] [place] [address] May, [facility] [place] [facility] [address] [id number] [place] [address] Apr, [facility] [place] [facility] [address] [id number] [place] [address] Apr, [facility] [place] [facility] [address] [id number] [place] [address] Apr, [facility] [place] [facility] [address] [id number] [place] [address] Mar, [facility] [place] [facility] [address] [id number] [place] [address] Mar, [facility] [place] [facility] [address] [id number] [place] [address] Mar, [facility] [place] [facility] [address] [id number] [place] [address] Mar, [facility] [place] [facility] [address] [id number] [place] [address] Mar, [facility] [place] [facility] [address] [id number] [place] [address] Mar, [facility] [place] [facility] [address] [id number] [place] [address] Mar, [facility] [place] [facility] [address] [id number] [address] Mar, [facility] [place] [facility] [address] [id number] [place] [address] Mar, [facility] [place] [facility] [address] [id number] [place] [address] Mar, [facility] [place] [facility] [address] [id number] [place] [address] Mar, [facility] [place] [facility] [address] [id number] [place] [address] Mar, [facility] [place] [facility] [address] [id number] [place] [address] Mar, [facility] [place] [facility] [address] [id number] [place] [address] Mar, [facility] [place] [facility] [address] [id number] [place] [address] Feb, [facility] [place] [facility] [address] [id number] [place] [address] Jan, [facility] [place] [facility] [address] [id number] [place] [address] Jan, [facility] [place] [facility] [address] [id number] [place] [address] Jan, [facility] [place] [facility] [address] [id number] [place] [address] Jan, [facility] [place] [facility] [address] [id number] [place] [address] Jan, [facility] [place] [facility] [address] [id number] [place] [address] Jan, [facility] [place] [facility] [address] [id number] [place] [address] Dec, [facility] [place] [facility] [address] [id number] [place] [address] Dec, [facility] [place] [facility] [address] [id number] [place] [address] Dec, [facility] [place] [facility] [address] [id number] [place] [address] Dec, [facility] [place] [facility] [address] [id number] [place] [address] Dec, [facility] [place] [facility] [address] [id number] [place] [address] Dec, [facility] [place] [facility] [address] [id number] [place] [address] Dec, [facility] [place] [facility] [address] [id number] [place] [address] Dec, [facility] [place] [facility] [address] [id number] [place] [address] Dec, [facility] [place] [facility] [address] [id number] [place] [address] Dec, [facility] [place] [facility] [address] [id number] [place] [address] Nov, [facility] [place] [facility] [address] [id number] [place] [address] Nov, [facility] [place] [facility] [address] [id number] [place] [address] October, [facility] [place] [facility] [address] [id number] [place] [address] October, [facility] [place] [facility] [address] [id number] [place] [address] October, [facility] [place] [facility] [address] [id number] [place] [address] October, [facility] [place] [facility] [address] [id number] [place] [address] October, [facility] [place] [facility] [address] [id number] [place] [address] October, [facility] [place] [facility] [address] [id number] [place] [address] October, [facility] [place] [facility] [address] [id number] [place] [address] October, [facility] [place] [facility] [address] [id number] [place] [address] October, [facility] [place] [facility] [address] [id number] [place] [address] October, [facility] [place] [facility] [address] [id number] [place] [address] October, [facility] [place] [facility] [address] [id number] [place] [address] October, [facility] [place] [facility] [address] [id number] [place] [address] October, [facility] [place] [facility] [address] [id number] [place] [address] October, [facility] [place] [facility] [address] [id number] [place] [address] October, [facility] [place] [facility] [address] [id number] [place] [address] October, [facility] [place] [facility] [address] [id number] [place] [address] Sep, [facility] [place] [facility] [address] [id number] [place] [address] Sep, [facility] [place] [facility] [address] [id number] [place] [address] Aug, [facility] [place] [facility] [address] [id number] [place] [address] Aug, [facility] [place] [facility] [address] [id number] [address] Aug, [facility] [place] [facility] [address] [id number] [place] [address] Aug, [facility] [place] [facility] [address] [id number] [place] [address] Aug, [facility] [place] [facility] [address] [id number] [place] [address] Aug, [facility] [place] [facility] [address] [id number] [place] [address] Jul, [facility] [place] [facility] [address] [id number] [place] [address] Jul, [facility] [place] [facility] [address] [id number] [place] [address] Jul, [facility] [place] [facility] [address] [id number] [place] [address] Jul, [facility] [place] [facility] [address] [id number] [place] [address] Jul, [facility] [place] [facility] [address] [id number] [place] [address] Jul, [facility] [place] [facility] [address] [id number] [place] [address] Jul, [facility] [place] [facility] [address] [facility] [id number] [place] [address] Jul, [facility] [place] [facility] [address] [id number] [place] [address] Jul, [facility] [place] [facility] [address] [facility] [id number] [place] [address] Jul, [facility] [place] [facility] [address] [facility] [id number] [place] [address] Jul, [facility] [place] [facility] [address] [facility] [id number] [place] [address] Jul, [facility] [place] [facility] [address] [id number] [place] [address] Jul, [facility] [place] [facility] [address] [facility] [id number] [place] [address] Jun, [facility] [place] [facility] [address] [id number] [place] [address] Jun, [facility] [place] [facility] [address] [facility] [id number] [place] [address] Jun, [facility] [place] [facility] [address] [facility] [id number] [place] [address] Jun, [facility] [address] [id number] [place] [address] Jun, [facility] [place] [facility] [address] [id number] [place] [address] Jun, [facility] [place] [facility] [address] [id number] [place] [address] Jun, [facility] [place] [facility] [address] [id number] [place] [address] Jun, [facility] [place] [facility] [address] [id number] [place] [address] Jun, [facility] [place] [facility] [address] [id number] [place] [address] Jun, [facility] [place] [facility] [address] [id number] [place] [address] Jun, [facility] [place] [facility] [address] [id number] [place] [address] Jun, [facility] [place] [facility] [address] [id number] [place] [address] Jun, [facility] [place] [facility] [address] [id number] [place] [address] May, [facility] [place] [facility] [address] [id number] [place] [address] May, [facility] [place] [facility] [address] [id number] [place] [address] May, [facility] [place] [facility] [address] [id number] [place] [address] May, [facility] [place] [facility] [address] [id number] [place] [address] Apr, [facility] [place] [facility] [address] [id number] [place] [address] Apr, [facility] [place] [facility] [address] [id number] [place] [address] 21 Apr, 2013 [facility] [place] [facility] [address] [id number] [place] [address] 15 Apr, 2013 [facility] [place] [facility] [address] [id number] [place] [address] 14 Apr, 2013 [facility] [place] [facility] [address] [id number] [place] [address] 14 Apr, 2013 [facility] [place] [facility] [address] [id number] [place] [address] 08 Apr, 2013 [facility] [place] [facility] [address] [id number] [place] [address] 08 Apr, 2013 [facility] [place] [facility] [address] [id number] [place] [address] Apr, [facility] [place] [facility] [address] [id number] [place] [address] Apr, [facility] [place] [facility] [address] [id number] [place] [address] Apr, [facility] [place] [facility] [address] [id number] [place] [address] Apr, [facility] [place] [facility] [address] [id number] [place] [address] Apr, [facility] [place] [facility] [address] [id number] [place] [address] Apr, [facility] [place] [facility] [address] [id number] [place] [address] Apr, [facility] [place] [facility] [address] [id number] [place] [address] Apr, [facility] [place] [facility] [address] [id number] [place] [address] Mar, [facility] [place] [facility] [address] [id number] [place] [address] Mar, [facility] [place] [facility] [address] [id number] [place] [address] 16 Mar, 2013 [facility] [place] [facility] [address] [id number] [place] [address] 16 Mar, 2013 [facility] [place] [facility] [address] [id number] [place] [address] 14 Mar, 2013 [facility] [place] [facility] [address] [id number] [place] [address] 14 Mar, 2013 [facility] [place] [facility] [address] [id number] [place] [address] 10 Mar, 2013 [facility] [place] [facility] [address] [id number] [place] [address] 08 Mar, 2013 [facility] [place] [facility] [address] [id number] [place] [address] 07 Mar, 2013 [facility] [place] [facility] [address] [id number] [place] [address] 26 Feb, 2013 [facility] [place] [facility] [address] [id number] [place] [address] 18 Feb, 2013 [facility] [place] [facility] [address] [id number] [place] [address] 10 Feb, 2013 [facility] [place] [facility] [address] [id number] [place] [address] 09 Feb, 2013 [facility] [place] [facility] [address] [id number] [place] [address] 30 Jan, 2013 [facility] [place] [facility] [address] [id number] [place] [address] Jan, [facility] [place] [facility] [address] [id number] [place] [address] Jan, [facility] [place] [facility] [address] [id number] [place] [address] Jan, [facility] [place] [facility] [address] [id number] [place] [address] Jan, [facility] [place] [facility] [address] [id number] [place] [address] Dec, [facility] [place] [facility] [address] [id number] [place] [address] Dec, [facility] [place] [facility] [address] [id number] [place] [address] Jul, [facility] [place] [facility] [address] [id number] [place] [address] Jul, [facility] [place] [facility] [address] [id number] [place] [address] Jul, [facility] [place] [facility] [address] [id number] [place] [address] Jun, [facility] [place] [facility] [address] [id number] [place] [address] Jun, [facility] [place] [facility] [address] [id number] [place] [address] Apr, [facility] [place] [facility] [address] [id number] [place] [address] Apr, [facility] [place] [facility] [address] [id number] [place] [address] Apr, [facility] [place] [facility] [address] [id number] [place] [address] Apr, [facility] [place] [facility] [address] [id number] [place] [address] Apr, [facility] [place] [facility] [address] [id number] [place] [address] Apr, [facility] [place] [facility] [address] [id number] [place] [address] Apr, [facility] [place] [facility] [address] [id number] [place] [address] Apr, [facility] [address] [facility] [id number] [address] Apr, [facility] [address] [facility] [id number] [place] [address] Mar, [facility] [id number] [address] Mar, [facility] [id number] [place] [address] Mar, [facility] [address] [facility] [id number] [place] [address] Mar, [facility] [id number] [address] Mar, [facility] [id number] [address] Mar, [facility] [id number] [place] [address] Feb, [facility] [id number] [address] Feb, [facility] [id number] [address] Feb, [facility] [id number] [address] Feb, [facility] [id number] [address] Feb, [facility] [id number] [address] Feb, [facility] [id number] [address] Feb, IMMUNIZATIONS No Known Immunizations SOCIAL HISTORY Never Assessed REASON FOR VISIT New [place] patient PLAN OF CARE VITAL SIGNS MEDICATIONS Medication Instructions Dosage Frequency Start Date End Date Duration Status Hemorrhoidal 1-0.25-14.4-15 % Rectal Four times a day 1 application to affected area as needed 6h Active metformin 1,000 mg take 1 tablet by Oral route 2 times per day with morning and evening meals for diabetes Mar, Active Milk of Magnesia 1200 MG/15ML 30 ml as needed Active Ketoconazole 2 % Externally to abdominal folds twice a day 1 application to affected area 12h Active Enalapril Maleate Orally 2 times a day 1 tablet 12h Dec, Active Flomax 0.4 MG Orally Once a day 1 capsule 24h 30 day(s) Active Myrbetriq 50 MG Orally Once a day 1 tablet 24h 30 day(s) Active Aspirin 81 mg take 1 tablet (81 mg) by oral route once daily Feb, Active Proscar 5 MG Orally Once a day 1 tablet 24h 30 day(s) Active NyQuil Severe Cold/Flu 5-6.25-10-325 MG/15ML Orally every 24 hrs 30 ml as needed Active Levemir 100 UNIT/ML Subcutaneous 2 times a day 28 units 12h Active Lipitor 10 MG Orally Once a day 1 tablet 24h 30 day(s) Active Lopressor 50 MG Orally Twice a day 1 tablet with food 12h 30 day(s) Active Cepacol Sore Throat 10-2.1 MG Mouth/Throat every 2 hrs 1 lozenge as needed Active Tears Naturale II 1 drop in both eyes 12h Active Lasix 20 MG Orally Once a day 1 tablet 24h 30 day(s) Active Colace 100 mg Orally twice a day 1 capsule 12h Active Systane Preservative Free 0.4-0.3 % Ophthalmic every 4 hrs 1 dropp in both eyes as needed 4h Active Metoprolol Tartrate 50 mg take 1 tablet by Oral route 1 time per day with meals Apr, Active loperamide 2 mg take 2 tablets (4 mg) by oral route after 1st loose stool and 1 tablet (2 mg) after each next bowel movement; do not exceed 16 mg in 24hrs Apr, Active Neurontin 300 MG Orally twice a day 1 capsule 12h Active RESULTS No Results PROCEDURES No Known procedures INSTRUCTIONS MEDICATIONS ADMINISTERED No Known Medications
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
--- NOTE | 2019-01-03 13:30 | NUR ---
CHARLIE CORONADO admitted to room 415-1, with an admitting diagnosis of CELLULITIS, on 01/03/19 from ED via [facility], accompanied by STAFF. CHARLIE CORONADO introduced to surroundings, call light, bed controls, phone, TV, temperature control, lights, meal times, smoking policy, visitor policy, side rail policy, bathrooms and showers. CHARLIE CORONADO verbalizes understanding that [facility] is not responsible for the loss or damage to any personal effects or valuables that are kept in the patients posession during their hospitalization. The following Patient Care Plans were discussed with the PT: Discharge Planning, PAIN, AND CELLULITIS. CHARLIE CORONADO verbalizes understanding of Interdisciplinary Patient Education. Patient and/or family were informed about the Rapid Response Team and its purpose.
--- NOTE | 2019-01-03 13:31 | History & Physical-Hospitalist ---
History of Present Illness HPI/Chief Complaint Chief complaint: Pannus cellulitis with necrotic subcutaneous tissue History of present illness: This is a 78-year-old white male long term patient at [facility] who has a past medical history of hyp ertension and diabetes insulin-dependent who is resided in the long term for the past 5 years who has dementia and severe presbycusis who presented to the ER with fever and altered mental status. He had been placed on Cipro and clindamycin for pannus cellulitis but it continued to worsen and he was found to have elevated lactic acid of 3.2 requiring IV fluids and broad-spectrum antibiotics of Zosyn and vancomycin. Wound care Dr. Anderson assessed the patient and found to have necrotic subcutaneous tissue and Dr. Childs was consulted who will evaluate for debridement. Patient denies any pain but he reports that he never has any pain anywhere ever. His white count was normal at 10,000 and his repeat lactic acid was down to 2 after gentle IV fluids given. Source: patient, RN/MD, old records Exam Limitations: clinical condition Date Seen 01/03/19 Time Seen by a Provider: 13:10 Attending Physician Tyra Foley DO [facility] Referring Physician Date of Admission Jan 03, 2019 at 12:10 Home Medications & Allergies Home Medications Reviewed patient Home Medication Reconciliation performed by pharmacy medication reconciliations cctv technician and/or nursing. Patients Allergies have been reviewed. Allergies Allergies Coded Allergies No Known Drug Allergies (Unverified01/03/19) Past Vjvxgvv-Uhfkmn-Wpncbr Hx Past Med/Social Hx: Reviewed Nursing Past Med/Soc Hx, Reviewed and Corrections made Patient Social History Marrital Status: single Employed/Student: retired ([employer]) Alcohol Use: Denies Use Recreational Drug Use: No Smoking Status: Never a Smoker Recent Foreign Travel: No Contact w/other who traveled: No Recent Hopitalizations: No Recent Infectious Disease Expo: No Immunizations Up To Date Tetanus Booster (TDap): More than 5yrs Date of Pneumonia Vaccine: Mar 21, 2011 Date of Influenza Vaccine: Mar 31, 2018 Past Medical History Cardiac: High Cholesterol, Hypertension Neurological: Dementia Reproductive: No Gastrointestinal: Chronic Constipation Musculoskeletal: Arthritis Endocrine: Diabetes, Non-Insulin dep HEENT: Cataract Loss of Vision: Bilateral Hearing Impairment: Hard of Hearing, Bilateral Hearing Aide History of Blood Disorders: No Family History Cardiovascular disease 19 MOTHER (CHF) Diabetes mellitus 19 MOTHER Prostate cancer 19 FATHER Heart Disease, Cancer, Diabetes, Hypertension Review of Systems Constitutional: see HPI, dizziness, fever, malaise, weakness EENTM: no symptoms reported Respiratory: no symptoms reported Cardiovascular: no symptoms reported Gastrointestinal: no symptoms reported Genitourinary: no symptoms reported Musculoskeletal: no symptoms reported Skin: see HPI Psychiatric/Neurological: No Symptoms Reported All Other Systems Reviewed Negative Unless Noted: Yes Physical Exam Physical Exam Vital Signs Vital Signs - First Documented Capillary Refill : Less Than 3 Seconds Height, Weight, BMI Height: 6'3.00" Weight: 320lbs. 7.0oz. 145.817948ml; 38.74 BMI Method:Stated General Appearance: No Apparent Distress, WD/WN, Chronically ill, Obese Eyes: Right Eye Normal Inspection, Right Eye PERRL HEENT: PERRL/EOMI, Normal ENT Inspection, Pharynx Normal, Moist Mucous Membranes Neck: Full Range of Motion, Normal Inspection, Non Tender Respiratory: Chest Non Tender, Lungs Clear, Normal Breath Sounds, No Accessory Muscle Use, No Respiratory Distress Cardiovascular: Regular Rate, Rhythm, No Edema, No Gallop, No JVD, No Murmur, Normal Peripheral Pulses Gastrointestinal: Normal Bowel Sounds, No Organomegaly, No Pulsatile Mass, Non Tender, Soft Back: Normal Inspection, No CVA Tenderness, No Vertebral Tenderness Extremity: Normal Capillary Refill, Normal Inspection, Normal Range of Motion, Non Tender, No Calf Tenderness, No Pedal Edema Neurologic/Psychiatric: Alert, No Motor/Sensory Deficits, Normal Mood/Affect, Disoriented Skin: Normal Color, Warm/Dry, Other (right pannus cellulitis with necrosis of SQ tissue and left leg ulcer with redness surrounding) Lymphatic: No Adenopathy Results Results/Procedures Labs Laboratory Tests 01/03/19 11:31 Patient resulted labs reviewed. Assessment/Plan Admission Diagnosis Assessment: Pannus cellulitis with necrotic subcutaneous tissue in need of debridement by general surgery Dr. Childs Sepsis Diabetes mellitus high risk for necrotizing fasciitis Left leg ulcer with surrounding cellulitis Diabetes mellitus insulin-dependent Hypertension Obesity Dementia Presbycusis Elevated lactic acid Plan: Appreciate Dr. Childs and Dr. Anderson consultation Broad-spectrum antibiotics of Zosyn and vancomycin Debridement per general surgery Home meds including insulin Pain medication IV fluids Monitor closely Admission Status: Inpatient Order (span 2 midnights) Reason for Inpatient Admission: Severe cellulitis will require 4 days abx Diagnosis/Problems Diagnosis/Problems (1) Sepsis Status: Acute Qualifiers: Sepsis type: sepsis due to unspecified organism Qualified Codes: A41.9 - Sepsis, unspecified organism (2) Abdominal pannus Status: Chronic (3) Dementia Status: Chronic Qualifiers: Dementia type: Alzheimer's disease (4) Presbycusis of both ears Status: Chronic (5) Debility Status: Chronic (6) Lactic acidemia Status: Acute (7) Cellulitis Status: Acute Qualifiers: Site of cellulitis: trunk Site of cellulitis of trunk: abdominal wall Qualified Codes: L03.311 - Cellulitis of abdominal wall (8) Cellulitis of left lower extremity Status: Acute (9) Pedal edema Status: Acute TYRA FOLEY DO Jan 03, 2019 13:31
[2019-01-03] MEDS ORDERED: NS IV 1000 ML 1,000 ML IV SCH ×3 (13:56→21:55)
[2019-01-03] MEDS ORDERED: VANCOMYCIN 1 GM/NS 250 ML IVPB IV NR ×2 (14:00)
[2019-01-03] MEDS ORDERED: NS IV ONE (14:00)
[2019-01-03] MEDS ORDERED: ONDANSETRON 4 MG/2 ML (SDV) Z0FRAN IV PRN (14:15)
[2019-01-03] MEDS ORDERED: ACETAMINOPHEN 500 MG TAB (TYLENOL) PO PRN (14:15)
[2019-01-03] MEDS ORDERED: FURO20TA4 PO (14:18)
[2019-01-03] MEDS ORDERED: METF-399 PO (14:18)
[2019-01-03] MEDS ORDERED: METO50TA15 PO (14:18)
[2019-01-03] MEDS ORDERED: ASPI-983 PO (14:18)
[2019-01-03] MEDS ORDERED: ENAL10TA PO (14:18)
[2019-01-03] MEDS ORDERED: GABA-488 PO (14:18)
[2019-01-03] MEDS ORDERED: ZINC28PA TP (14:18)
[2019-01-03] MEDS ORDERED: ATOR10TA66 PO (14:18)
[2019-01-03] MEDS ORDERED: CIPR-225 PO (14:18)
[2019-01-03] MEDS ORDERED: PROP15DR OU (14:18)
[2019-01-03] MEDS ORDERED: POLY17PO6 PO (14:18)
[2019-01-03] MEDS ORDERED: MIRA50TA PO (14:18)
[2019-01-03] MEDS ORDERED: CLIN300C11 PO (14:18)
[2019-01-03] MEDS ORDERED: PHEN51CR17 RC (14:18)
[2019-01-03] MEDS ORDERED: D-ME236L5 PO (14:18)
[2019-01-03] MEDS ORDERED: AMLO5TAB9 PO (14:18)
[2019-01-03] MEDS ORDERED: LOPE2CAP PO (14:18)
[2019-01-03] MEDS ORDERED: LACT1CAP62 PO (14:18)
[2019-01-03] MEDS ORDERED: BENZ1LOZ61 MM (14:18)
[2019-01-03] MEDS ORDERED: ACET325T38 PO ×2 (14:18)
[2019-01-03] MEDS ORDERED: DOCU-143 PO (14:18)
[2019-01-03] MEDS ORDERED: MENT118G TP (14:18)
[2019-01-03] MEDS ORDERED: INSU100V SC (14:18)
[2019-01-03] MEDS ORDERED: DEXT15DR23 OU (14:18)
[2019-01-03] MEDS ORDERED: INSU100I29 SC (14:18)
[2019-01-03] MEDS ORDERED: TAMS0.4C98 PO (14:18)
[2019-01-03] MEDS ORDERED: MAGN400O7 PO (14:18)
[2019-01-03] MEDS ORDERED: FINA5TAB6 PO (14:18)
--- NOTE | 2019-01-03 14:20 | NUR ---
CRITICAL LACTIC 2.[address] SANDERS. ALSO, CLARIFICATION OF MULTIPLE IV RATES, BOLUSES, AND ORDERS. ORDERED NO FURTHER IV BOLUS AND NS @ 100CC/HR.
--- NOTE | 2019-01-03 14:23 | NUR ---
UPDATED MED REC WITH ORDER REVIEW REPORT FROM [facility].
--- NOTE | 2019-01-03 15:01 | NUR ---
per TO from carole Giron to ewa aguero
--- NOTE | 2019-01-03 15:45 | NUR ---
MYRBETRIQ NOT AVAILABLE. LOYD IN RX TO MAKE DR. SANDERS AWARE AND OF ANY POSS SUBSTITUTES.
[2019-01-03] MEDS: inSUlin ASPART (NovoLOG) 1 UNIT/0.01 ML (CHARGE PER UNIT) SC SCH (15:46)
[2019-01-03] MEDS ORDERED: inSUlin ASPART (NovoLOG) 1 UNIT/0.01 ML (CHARGE PER UNIT) SC SCH (16:00)
--- NOTE | 2019-01-03 17:34 | NUR ---
UNABLE TO PLACE SCDS ON PT R/T WOUNDS ON SHINS BILATERALLY. GABBIE'Varun.
--- NOTE | 2019-01-03 17:38 | NUR ---
DR. MAYO HERE TO EVALUATE WD.
[2019-01-03] MEDS ORDERED: TAMSULOSIN 0.4 MG (FLOMAX) CAP PO SCH (18:00)
[2019-01-03] MEDS: PIPERACILLIN/TAZO 4.5 GM/NS 100 ML IV SCH ×2 (18:23)
--- NOTE | 2019-01-03 18:25 | Wound Care Assessment ---
Wound Care Assessment Date Seen by Provider: Jan 03, 2019 Time Seen by Provider: 17:30 Chief Complaint R abdominal wall ulcer. HPI The patient is a 78 year old male who presents with a 5 day history of pain and drainage from the R abdominal wall, in a setting of diabetes, morbid obesity, immobility, and poor hygiene. Examination shows a 8 x 5 cm full thickness necrotic ulcer with a 25 cm surrounding area of erythema of the dependent R pannus. This most likely represents necrotizing fascitis. This is an emergent surgical problem, in my opinion. My findings are communicated to attending and consulting surgeon. Will see again as needed. Past Medical History: Admits Diabetes Type II, Admits Heart Disease Dementia Smoking Status: Never a Smoker Recreational Drug Use: No Alcohol Use: Denies Use Review of Systems Pulmonary: No Dyspnea Cardiovascular: No: Chest Pain Gastrointestinal: No: Abdominal Pain Exam Vital Signs Date Time Temp Pulse Resp B/P (MAP) Pulse Ox O2 Delivery O2 Flow Rate FiO2 01/03/19 16:34 Room Air 01/03/19 15:56 97.4 70 22 133/75 (94) 96 Capillary Refill : Less Than 3 SecondsLess Than 3 Seconds General Appearance: no apparent distress HEENT: normal ENT inspection Neck: normal inspection Cardiovascular: regular rate, rhythm Respiratory: lungs clear Gastrointestinal: other (Large necrotic area of R lower abdominal wall, c/w necrotizing fasciitis.) Results Laboratory Tests 01/03/19 11:31: White Blood Count 10.3, Red Blood Count 4.71, Hemoglobin 13.7, Hematocrit 42, Mean Corpuscular Volume 90, Mean Corpuscular Hemoglobin 29, Mean Corpuscular Hemoglobin Concent 32, Red Cell Distribution Width 13.8, Platelet Count 358, Mean Platelet Volume 9.9, Neutrophils (%) (Auto) 74, Lymphocytes (%) (Auto) 7L, Monocytes (%) (Auto) 16H, Eosinophils (%) (Auto) 2, Basophils (%) (Auto) 0, Neutrophils # (Auto) 7.6, Lymphocytes # (Auto) 0.7L, Monocytes # (Auto) 1.7H, Eosinophils # (Auto) 0.3, Basophils # (Auto) 0.0, Neutrophils % (Manual) 73, Lymphocytes % (Manual) 6, Monocytes % (Manual) 19, Eosinophils % (Manual) 0, Basophils % (Manual) 0, Band Neutrophils 2, Blood Morphology Comment NORMAL, P rothrombin Time 13.5, INR Comment 1.0, Activated Partial Thromboplast Time 31, Sodium Level 137, Potassium Level 4.0, Chloride Level 100, Carbon Dioxide Level 26, Anion Gap 11, Blood Urea Nitrogen 22H, Creatinine 0.89, Estimat Glomerular Filtration Rate > 60, BUN/Creatinine Ratio 25, Glucose Level 134H, Lactic Acid Level 3.04*H, Calcium Level 10.0, Corrected Calcium 10.2H, Total Bilirubin 0.7, Aspartate Amino Transf (AST/SGOT) 23, Alanine Aminotransferase (ALT/SGPT) 29, Alkaline Phosphatase 84, Total Protein 6.7, Albumin 3.8 01/03/19 13:35: Lactic Acid Level 2.07*H 01/03/19 15:40: Glucometer 111H 01/03/19 17:39: Lactic Acid Level 1.04 Assessment/Plan/Dx 1. Necrotizing fasciitis of abdominal wall. 2. Diabetes with ulcer. 3. Dementia. Plan: recommend urgent surgical debridement. DYAN MAYO MD Jan 03, 2019 18:25
--- NOTE | 2019-01-03 20:14 | Consultation - Surgery ---
History of Present Illness History of Present Illness Patient Consulted On(ivelisse/time) 01/03/19 20:09 Date Seen by Provider: Jan 03, 2019 Time Seen by Provider: 20:09 History of Present Illness Consult requested by Dr. Foley for cellulitis/abd wound Patient is a 78 year old male who has had a wound for about days. He has moderate to severe pain. Worse with touching. Has some purulent drainage and t he area is starting to turn black. Nothing has made better. There is significant erythema around the wound. Patient with multiple comorbidities. Patient with wound on left lower extremity wound that has almost healed. Denies any other complaints at this time. Allergies and Home Medications Allergies Coded Allergies: No Known Drug Allergies (Unverified , 01/03/19) Home Medications Acetaminophen 325 Mg Tablet, 650 MG PO Q4H PRN for PAIN-MILD, (Reported) TAKES 2 (325MG) TABLETS Acetaminophen 325 Mg Tablet, 650 MG PO DAILY, (Reported) Amlodipine Besylate 5 Mg Tablet, 5 MG PO DAILY, (Reported) HOLD IF SBP<90, PULSE <60 Aspirin 81 Mg Tablet.dr, 81 MG PO DAILY, (Reported) Atorvastatin Calcium 10 Mg Tablet, 10 MG PO 1500, (Reported) Benzocaine/Menthol 1 Each Lozenge, 1 ANNIE MM UD PRN for COUGH, (Reported) Ciprofloxacin HCl 500 Mg Tablet, 500 MG PO BID, (Reported) 10 DAY SUPPLY START DATE 01-02-19 END DATE 01-12-19 Clindamycin HCl 300 Mg Capsule, 300 MG PO QID, (Reported) START DATE 01-02-19 END DATE 01-12-19 D-Methorphan/Acetamin/Doxylamn 236 Ml Liquid, 30 ML PO DAILY PRN for COUGH, (Reported) Dextran 70/Hypromellose 15 Ml Drops, 1 DROP OU BID, (Reported) Docusate Sodium 100 Mg Capsule, 100 MG PO BID, (Reported) Enalapril Maleate 10 Mg Tablet, 10 MG PO BID, (Reported) HOLD IF SBP <90 PULSE <60 Finasteride 5 Mg Tablet, 5 MG PO DAILY, (Reported) Furosemide 20 Mg Tablet, 20 MG PO DAILY, (Reported) Gabapentin 300 Mg Capsule, 300 MG PO BID, (Reported) Insulin Detemir 100 Unit/1 Ml Insuln.pen, 33 UNITS SC BID, (Reported) Insulin Lispro 100 Unit/1 Ml Vial, 22 UNITS SC TID, (Reported) Lactobacillus Acidophilus 1 Each Capsule, 1 CAP PO BID, (Reported) Loperamide HCl 2 Mg Capsule, PO UD PRN for LOOSE STOOLS, (Reported) TAKE 2 CAPSULES AFTER FIRST LOOSE STOOL THEN TAKE 1 CAPSULE AFTER EACH SUBSEUENT LOOSE STOOL. MAX 4 CAPS IN 24 HOURS Magnesium Hydroxide 400 Mg/5 Ml Oral.susp, 30 ML PO DAILY PRN for CONSTIPATION- 7TH LINE, (Reported) Menthol 118 Ml Gel..ml., TP Q6H PRN for SHOULDER PAIN, (Reported) Metformin HCl 1,000 Mg Tablet, 1,000 MG PO BID, (Reported) Metoprolol Tartrate 50 Mg Tablet, 50 MG PO BID, (Reported) Mirabegron 50 Mg Tab.er.24h, 50 MG PO DAILY, (Reported) Phenyleph/Pramoxin/Glycr/W.pet 51 Gm Cream..g., RC Q6H PRN for HEMORRHOIDS, (Reported) Polyethylene Glycol 3350 17 Gm Powd.pack, 17 GM PO Q12H PRN for CONSTIPATION-2ND LINE, (Reported) Propylene Glycol/Peg 400 15 Ml Drops, 1 DROP OU Q4H PRN for DRY EYES, (Reported) Tamsulosin HCl 0.4 Mg Cap, 0.4 MG PO 1730, (Reported) Zinc Oxide 28 Gm Oint, TP Q8H PRN for RASH/REDNESS IN ABDOMINAL FOLD, (Reported) Patient Home Medication List Home Medication List Reviewed: Yes Past Lziqtoc-Wwdign-Gthpyy Hx Patient Social History Alcohol Use: Denies Use Recreational Drug Use: No Smoking Status: Never a Smoker Recent Foreign Travel: No Contact w/Someone Who Travel: No Recent Infectious Disease Expo: No Recent Hopitalizations: No Physical Abuse Screen: No Sexual Abuse: No Immunizations Up To Date Tetanus Booster (TDap): More than 5yrs Date of Pneumonia Vaccine: Mar 21, 2011 Date of Influenza Vaccine: Mar 31, 2018 Seasonal Allergies Seasonal Allergies: No Surgeries History of Surgeries: Yes Respiratory History of Respiratory Disorde: No Cardiovascular History of Cardiac Disorders: Yes Neurological History of Neurological Disord: Yes Reproductive System Hx Reproductive Disorders: No Genitourinary History of Genitourinary Disor: Yes (INCONTINENT) Gastrointestinal History of Gastrointestinal Di: No Musculoskeletal History of Musculoskeletal Dis: Yes Musculoskeletal Disorders: Arthritis Endocrine History of Endocrine Disorders: Yes Endocrine Disorders: Diabetes, Non-Insulin dep HEENT History of HEENT Disorders: Yes HEENT Disorders: Cataract Loss of Vision: Bilateral Hearing Impairment: Hard of Hearing, Bilateral Hearing Aide Cancer History of Cancer: No Psychosocial History of Psychiatric Problem: No Integumentary History of Skin or Integumenta: Yes (MULTIPLE WOUNDS) Blood Transfusions History of Blood Disorders: No Family Medical History Significant Family History: Heart Disease, Cancer, Diabetes, Hypertension Family Medial History: Cardiovascular disease 19 MOTHER (CHF) Diabetes mellitus 19 MOTHER Prostate cancer 19 FATHER Review of Systems-General Constitutional: no symptoms reported EENTM: no symptoms reported Respiratory: no symptoms reported Cardiovascular: no symptoms reported Gastrointestinal: no symptoms reported Genitourinary: no symptoms reported Musculoskeletal: no symptoms reported Skin: see HPI Psychiatric/Neurological: No Symptoms Reported Physical Exam-General Problems Physical Exam Vital Signs Vital Signs - First Documented Capillary Refill : Less Than 3 SecondsLess Than 3 Seconds General Appearance: no apparent distress HEENT: PERRL/EOMI, normal ENT inspection Neck: full range of motion, supple Respiratory: chest non-tender, no respiratory distress, no accessory muscle use Cardiovascular: regular rate, rhythm Gastrointestinal: soft, tenderness (right lower abdomen 8x5 cm wound right lower abdomen and surrounding erythema approx 25 cm. some fluctuance necrotic appearance) Rectal: deferred Extremities: non-tender, normal inspection, other (small clean quarter size wound left lower ext) Neurologic/Psychiatric: alert, normal mood/affect, oriented x 3 Skin: other (findings as noted above) Lymphatic: no adenopathy Data Review Labs Laboratory Tests 01/03/19 11:31: White Blood Count 10.3, Red Blood Count 4.71, Hemoglobin 13.7, Hematocrit 42, Mean Corpuscular Volume 90, Mean Corpuscular Hemoglobin 29, Mean Corpuscular Hemoglobin Concent 32, Red Cell Distribution Width 13.8, Platelet Count 358, Mean Platelet Volume 9.9, Neutrophils (%) (Auto) 74, Lymphocytes (%) (Auto) 7L, Monocytes (%) (Auto) 16H, Eosinophils (%) (Auto) 2, Basophils (%) (Auto) 0, Neutrophils # (Auto) 7.6, Lymphocytes # (Auto) 0.7L, Monocytes # (Auto) 1.7H, Eosinophils # (Auto) 0.3, Basophils # (Auto) 0.0, Neutrophils % (Manual) 73, Lymphocytes % (Manual) 6, Monocytes % (Manual) 19, Eosinophils % (Manual) 0, Basophils % (Manual) 0, Band Neutrophils 2, Blood Morphology Comment NORMAL, Prothrombin Time 13.5, INR Comment 1.0, Activated Partial Thromboplast Time 31, Sodium Level 137, Potassium Level 4.0, Chloride Level 100, Carbon Dioxide Level 26, Anion Gap 11, Blood Urea Nitrogen 22H, Creatinine 0.89, Estimat Glomerular Filtration Rate > 60, BUN/Creatinine Ratio 25, Glucose Level 134H, Lactic Acid Level 3.04*H, Calcium Level 10.0, Corrected Calcium 10.2H, Total Bilirubin 0.7, Aspartate Amino Transf (AST/SGOT) 23, Alanine Aminotransferase (ALT/SGPT) 29, Alkaline Phosphatase 84, Total Protein 6.7, Albumin 3.8 01/03/19 13:35: Lactic Acid Level 2.07*H 01/03/19 15:40: Glucometer 111H 01/03/19 17:39: Lactic Acid Level 1.04 Assessment/Plan Assessment/Plan Assessment/Plan patient with right lower quadrant necrotic wound/abscess with surrounding cellulitis could be beginning to turn into necrotizing fascitis, but i don't think it is quite there yet. I feel this does need to go to the or now for emergent incision and drainage and debridement of wound. we discussed risks and benefits of above and patient and family agree with lissy arenas. NPO To OR for surgical intervention Continue with medical management. Clinical Quality Measures DVT/VTE Risk/Contraindication: Risk Factor Score Per Nursin RFS Level Per Nursing on Admit: 4+=Very High DEEDEE SYLVESTER DO Jan 03, 2019 20:14
[2019-01-03] MEDS ORDERED: [UNRECOGNIZED DRUG - OTHER] MM PRN (20:15)
[2019-01-03] MEDS ORDERED: MILK OF MAGNESIA 400 MG/5 ML 30 ML UDC PO PRN (20:15)
[2019-01-03] MEDS ORDERED: fentaNYL INJECTION 100 MCG/2 ML AMP IVP PRN (20:15)
[2019-01-03] MEDS ORDERED: NON-FORMULARY MEDICATION 1 EA EA (Polyethylene Glycol 3350 (Miralax) 17 GM) PO PRN (20:15)
[2019-01-03] MEDS ORDERED: MENTHOL MM PRN (20:15)
[2019-01-03] MEDS ORDERED: diphenhydrAMINE 25 MG TAB (BENADRYL) PO PRN (20:15)
[2019-01-03] MEDS ORDERED: MELATONIN 3 MG TABLET PO PRN (20:15)
[2019-01-03] MEDS ORDERED: LOPERAMIDE 2 MG (IMODIUM) TABLET PO PRN (20:15)
[2019-01-03] MEDS ORDERED: CALCIUM CARBONATE 500 MG (TUMS) TAB.CHEW PO PRN (20:15)
[2019-01-03] MEDS ORDERED: ZINC OXIDE 16% OINT (BUTT PASTE) 113 GM TUBE TP PRN (20:15)
[2019-01-03] MEDS ORDERED: BENZOCAINE MM PRN (20:15)
[2019-01-03] MEDS ORDERED: SYSTANE EYE DROPS 15 ML (NON-FORMULARY) OP PRN (20:15)
[2019-01-03] MEDS ORDERED: POLYETHYLENE GLYCOL 17 GM (MIRALAX) PACK PO PRN (20:30)
[2019-01-03] MEDS ORDERED: ARTIFICAL TEARS 0.4 ML UNIT DOSE (REFRESH PLUS) OU PRN (20:30)
[2019-01-03] MEDS ORDERED: CHLORASEPTIC LOZENGE MM PRN (20:30)
[2019-01-03] MEDS ORDERED: NON-FORMULARY MEDICATION 1 EA EA (Dextran 70/Hypromellose (Natural Balance Tears Eye Drop) OU SCH (21:00)
[2019-01-03] MEDS ORDERED: INSULIN DETEMIR 33 UNIT SC SCH (21:00)
[2019-01-03] MEDS ORDERED: INSULIN LISPRO 22 UNIT SC SCH (21:00)
[2019-01-03] MEDS ORDERED: DOCUSATE SODIUM 100 MG (COLACE) CAP PO SCH (21:00)
[2019-01-03] MEDS ORDERED: GABAPENTIN 300 MG (NEURONTIN) CAP PO SCH (21:00)
[2019-01-03] MEDS ORDERED: meTOprolol TARTRATE 50 MG (LOPRESSOR) TAB PO SCH (21:00)
[2019-01-03] MEDS ORDERED: NON-FORMULARY MEDICATION 1 EA EA (Lactobacillus Acidophilus (Probiotic) 1 CAP) PO SCH (21:00)
[2019-01-03] MEDS ORDERED: ONDANSETRON 4 MG/2 ML (SDV) Z0FRAN ONE (21:26)
[2019-01-03] MEDS ORDERED: SUCCINYLCHOLINE INJ 100 MG/5 ML SYR ONE (21:26)
[2019-01-03] MEDS ORDERED: proPOfol 200 MG/20 ML (DIPRIVAN) VIAL IV ONE (21:26)
[2019-01-03] MEDS ORDERED: fentaNYL INJECTION 100 MCG/2 ML AMP ONE (21:26)
[2019-01-03] MEDS ORDERED: LIDOCAINE PF 2% 5 ML (XYLOCAINE) VIAL ONE (21:26)
[2019-01-03] MEDS ORDERED: MIDAZOLAM 2 MG/2 ML (VERSED) VIAL ONE (21:27)
[2019-01-03] MEDS: LACTATED RINGERS 1,000 ML IV PRN ×2 (21:32→22:05)
[2019-01-03] MEDS ORDERED: DESFLURANE (SUPRANE) 15 ML INHAL SOLN ONE ×3 (21:42→22:04)
--- NOTE | 2019-01-03 22:11 | Progress Note-Post Operative ---
Post-Operative Progess Note Surgeon (s)/Family Services Coordinator (s) Surgeon DEEDEE SYLVESTER DO Family Services Coordinator: na Pre-Operative Diagnosis abscess necrotic abdominal wound Post-Operative Diagnosis same Procedure & Operative Findings Date of Procedure 01/03/19 Procedure Performed/Findings incision and drainage/(sharp/cautery) debridement 9.5x5.5x3.5cm skin and subcuta neous tissue Anesthesia Type gen Estimated Blood Loss Estimated blood loss (mL): min Specimens/Packing Specimens Removed necrotic skin and subcutaneous tissue Packing: iodoform DEEDEE SYLVESTER DO Jan 03, 2019 22:11
[2019-01-03] MEDS ORDERED: morphine INJ 10 MG/ML 1ML (SYR OR VIAL) ONE (22:19)
[2019-01-03] MEDS ORDERED: ONDANSETRON 4 MG/2 ML (SDV) Z0FRAN IVP PRN (22:45)
[2019-01-03] MEDS ORDERED: MEPERIDINE (DEMEROL) INJ 50 MG/ML IVP ONE (22:45)
[2019-01-03] MEDS ORDERED: morphine INJ 10 MG/ML 1ML (SYR OR VIAL) IVP ONE (22:45)
[2019-01-03] MEDS ORDERED: PROMETHAZINE INJ 25 MG/ML (PHENERGAN) AMP IVP ONE (22:45)
[2019-01-04] MEDS: LACTOBACILLUS ACIDOPHILUS (PROBIOTIC) CAPSULE PO SCH ×3 (01:44→21:09)
[2019-01-04] MEDS: ARTIFICAL TEARS 0.4 ML UNIT DOSE (REFRESH PLUS) OU SCH ×3 (01:44→21:09)
[2019-01-04] MEDS: DOCUSATE SODIUM 100 MG (COLACE) CAP PO SCH ×3 (01:45→21:09)
[2019-01-04] MEDS: SENNA W/DOCUSATE (SENOKOT S) TABLET PO SCH ×3 (01:46→21:09)
[2019-01-04] MEDS: meTOprolol TARTRATE 50 MG (LOPRESSOR) TAB PO SCH ×3 (01:46→21:09)
[2019-01-04] MEDS: inSUlin ASPART (NovoLOG) 1 UNIT/0.01 ML (CHARGE PER UNIT) SC SCH ×8 (01:46→21:10)
[2019-01-04] MEDS: GABAPENTIN 300 MG (NEURONTIN) CAP PO SCH ×3 (01:46→21:09)
[2019-01-04] MEDS: ENALAPRIL 10 MG (VASOTEC) TAB PO SCH ×3 (01:46→21:09)
[2019-01-04] MEDS: NS IV 1000 ML 1,000 ML IV SCH ×3 (01:47→13:45)
[2019-01-04] MEDS ORDERED: PIPERACILLIN/TAZO 4.5 GM VIAL (ZOSYN) IV ONE (02:13)
[2019-01-04] MEDS ORDERED: VANCOMYCIN 1 GM IV ONE (02:15)
[2019-01-04] MEDS: VANCOMYCIN 2000 MG/NS 500 ML IVPB IV SCH ×4 (02:28→16:03)
[2019-01-04] MEDS ORDERED: HYDROcodone/APAP 5 MG/325 MG (LORTAB) TAB PO PRN (02:45)
[2019-01-04] MEDS: PIPERACILLIN/TAZO 4.5 GM/NS 100 ML IV SCH ×6 (03:17→18:40)
[2019-01-04 03:38] VITALS: BP 144/97
--- NOTE | 2019-01-04 04:07 | OPERATIVE REPORT ---
DATE OF SERVICE: 01/03/2019 PREOPERATIVE DIAGNOSIS: Abscess necrotic abdominal wound. POSTOPERATIVE DIAGNOSIS: Abscess necrotic abdominal wound. PROCEDURE: Incision and drainage, sharp and cautery debridement 9.5 x 5.5 x 3.5 cm skin and subcutaneous tissue. SURGEON: Deedee Childs DO ANESTHESIA: General. ESTIMATED BLOOD LOSS: Minimal. COMPLICATIONS: None. INDICATIONS: The patient is a 78-year-old male with an abdominal wound to the right lower abdomen. Some concern for necrotizing fasciitis. Risks and benefits of procedure were discussed with the patient and his family. They understand and wish to proceed with procedure. Consent was signed in the chart. DESCRIPTION OF PROCEDURE: The patient was taken to the operating suite, was prepped and draped in sterile fashion. Surgical pause was performed. A 15 blade scalpel was used to make a skin incision where the necrotic and fluctuance. A small amount of purulent material erupted, culture of the necrotic and purulent material was obtained. Abscess cavity loculations were broken out with finger and the scalpel and cautery were used to remove skin and subcutaneous tissue to healthy cleaned tissue. Hemostasis was achieved with cautery. Overall, dimensions of wound that was created with 9.5 x 5.5 x 3.5 cm. The wound was irrigated with copious amounts of irrigation and suction. Hemostasis was achieved. The wound was then packed with iodoform gauze and sterile bandage was applied. The patient tolerated the procedure well without any complications, taken to recovery room in stable condition. Job ID: [id number] DocumentID: [id number] Dictated Date: 01/03/2019 22:13:53 [place] Date: 01/04/2019 04:06:43 Dictated By: DEEDEE CHILDS DO
[2019-01-04 05:46] LABS: BASOPHILS % (AUTO) 0 % (0-10); EOSINOPHILS # (AUTO) 0.2 10^3/uL (0.0-0.3); EOSINOPHILS % (AUTO) 3 % (0-10); HEMATOCRIT 40 % (40-54); HEMOGLOBIN 12.9 G/DL (13.3-17.7); LYMPHOCYTES # (AUTO) 0.5 X 10^3 (1.0-4.0); LYMPHOCYTES % (AUTO) 7 % (12-44); MEAN CORPUSCULAR HEMOGLOBIN 30 PG (25-34); MEAN CORPUSCULAR HGB CONC 33 G/DL (32-36); MEAN CORPUSCULAR VOLUME 90 FL (80-99); MEAN PLATELET VOLUME 10.2 FL (7.4-10.4); MONOCYTES # (AUTO) 0.9 X 10^3 (0.0-1.0); MONOCYTES % (AUTO) 12 % (0-12); NEUTROPHILS # (AUTO) 5.6 X 10^3 (1.8-7.8); NEUTROPHILS % (AUTO) 78 % (42-75); PLATELET COUNT 300 10^3/uL (130-400); RED CELL DISTRIBUTION WIDTH 13.6 % (10.0-14.5); WHITE BLOOD COUNT 7.3 10^3/uL (4.3-11.0)
[2019-01-04 06:06] LABS: ALANINE AMINOTRANSFERASE 26 U/L (0-55); ALBUMIN 3.4 GM/DL (3.2-4.5); ALKALINE PHOSPHATASE 77 U/L (40-136); BILIRUBIN,TOTAL 0.8 MG/DL (0.1-1.0); BUN/CREATININE RATIO 21; CALCIUM 8.9 MG/DL (8.5-10.1); CARBON DIOXIDE 22 MMOL/L (21-32); CHLORIDE 106 MMOL/L (98-107); CREATININE SERUM 0.78 MG/DL (0.60-1.30); GFR ESTIMATED > 60; GLUCOSE 227 MG/DL (70-105); POTASSIUM 4.2 MMOL/L (3.6-5.0); SODIUM 138 MMOL/L (135-145); TOTAL PROTEIN 5.9 GM/DL (6.4-8.2)
[2019-01-04 07:51] VITALS: BP 130/72
[2019-01-04] MEDS: amLODIPine 5 MG (NORVASC) TAB PO SCH (08:48)
[2019-01-04] MEDS: ASPIRIN E.C. 81 MG (ECOTRIN) TAB PO SCH (08:48)
[2019-01-04] MEDS: FINASTERIDE (PROSCAR) 5 MG TAB PO SCH (08:49)
[2019-01-04] MEDS ORDERED: NON-FORMULARY MEDICATION 1 EA EA (Amlodipine Besylate 5 MG) PO SCH (09:00)
[2019-01-04] MEDS ORDERED: NON-FORMULARY MEDICATION 1 EA EA (Mirabegron (Myrbetriq) 50 MG) PO SCH (09:00)
[2019-01-04] MEDS ORDERED: FINASTERIDE (PROSCAR) 5 MG TAB PO SCH (09:00)
--- NOTE | 2019-01-04 10:29 | Progress Note - Hospitalist ---
Subjective HPI/CC On Admission Date Seen by Provider: Jan 04, 2019 Time Seen by Provider: 09:30 Chief complaint: Pannus cellulitis with necrotic subcutaneous tissue History of present illness: This is a 78-year-old white male care home patient at [facility] who has a past medical history of hypertension and diabetes insulin-dependent who is resided in the care home for the past 5 years who has dementia and severe presbycusis who presented to the ER with fever and altered mental status. He had been placed on Cipro and clindamycin for pannus cellulitis but it continued to worsen and he was found to have elevated lactic acid of 3.2 requiring IV fluids and broad-spectrum antibiotics of Zosyn and vancomycin. Wound care Dr. Anderson assessed the patient and found to have necrotic subcutaneous tissue and Dr. Childs was consulted who will evaluate for debridement. Patient denies any pain but he reports that he never has any pain anywhere ever. His white count was normal at 10,000 and his repeat lactic acid was down to 2 after gentle IV fluids given. Subjective/Events-last exam Pt had and I&D at [address] Childs after Dr. Anderson recommended due to necrotic subQ tissues. Labs are okay Complaining about a lot of things Sister and her at the bedside PT and OT will be ordered Most of home meds have been restarted Trying to keep pt as comfortable as possible Fentanyl and Hydrocodone will be used Appreciate general surgery Maintain antibiotics Review of Systems General: Fatigue Gastrointestinal: Abdominal Pain Focused Exam Lactate Level 01/03/19 11:31: Lactic Acid Level 3.04*H 01/03/19 13:35: Lactic Acid Level 2.07*H 01/03/19 17:39: Lactic Acid Level 1.04 Objective Exam Vital Signs Vital Signs Date Time Temp Pulse Resp B/P (MAP) Pulse Ox O2 Delivery O2 Flow Rate FiO2 01/04/19 19:16 99.6 83 20 131/79 (96) 95 Room Air 01/03/19 23:00 3 Capillary Refill : Less Than 3 SecondsLess Than 3 Seconds General Appearance: No Apparent Distress, WD/WN, Chronically ill, Obese HEENT: PERRL/EOMI, Normal ENT Inspection, Pharynx Normal, Moist Mucous Membranes Neck: Full Range of Motion, Normal Inspection, Non Tender Respiratory: Chest Non Tender, Lungs Clear, Normal Breath Sounds, No Accessory Muscle Use, No Respiratory Distress Cardiovascular: Regular Rate, Rhythm, No Edema, No Gallop, No JVD, No Murmur, Normal Peripheral Pulses Gastrointestinal: Normal Bowel Sounds, No Organomegaly, No Pulsatile Mass, Non Tender, Soft Back: Normal Inspection, No CVA Tenderness, No Vertebral Tenderness Extremity: Normal Capillary Refill, Normal Inspection, Normal Range of Motion, Non Tender, No Calf Tenderness, No Pedal Edema Neurologic/Psychiatric: Alert, No Motor/Sensory Deficits, Normal Mood/Affect, Disoriented Skin: Normal Color, Warm/Dry, Other (right pannus cellulitis with necrosis of SQ tissue and left leg ulcer with redness surrounding) Lymphatic: No Adenopathy Results/Procedures Lab Laboratory Tests 01/04/19 05:28 Patient resulted labs reviewed. Assessment/Plan Assessment and Plan Assess & Plan/Chief Complaint Assessment: Pannus cellulitis with necrotic subcutaneous tissue s/p debridement by general surgery Dr. Childs POD # 1 Sepsis maintained on IVF gently Diabetes mellitus high risk for necrotizing fasciitis Left leg ulcer with surrounding cellulitis Diabetes mellitus insulin-dependent Hypertension Obesity Dementia Presbycusis Elevated lactic acid Plan: Appreciate Dr. Childs and Dr. Anderson consultation Broad-spectrum antibiotics of Zosyn and vancomycin Debridement per general surgery Home meds including insulin Pain medication IV fluids Monitor closely PT/OT Hopefully DC IVF tomorrow Diagnosis/Problems Diagnosis/Problems (1) Sepsis Status: Acute Qualifiers: Sepsis type: sepsis due to unspecified organism Qualified Codes: A41.9 - Sepsis, unspecified organism (2) Abdominal pannus Status: Chronic (3) Dementia Status: Chronic Qualifiers: Dementia type: Alzheimer's disease (4) Presbycusis of both ears Status: Chronic (5) Debility Status: Chronic (6) Lactic acidemia Status: Acute (7) Cellulitis Status: Acute Qualifiers: Site of cellulitis: trunk Site of cellulitis of trunk: abdominal wall Qualified Codes: L03.311 - Cellulitis of abdominal wall (8) Cellulitis of left lower extremity Status: Acute (9) Pedal edema Status: Acute Clinical Quality Measures DVT/VTE Risk/Contraindication: Risk Factor Score Per Nursin RFS Level Per Nursing on Admit: 4+=Very High MINNIE SANDERS DO Jan 04, 2019 10:29
--- NOTE | 2019-01-04 10:47 | NUR ---
CM/PEPPER. [facility], he was not under skilled status prior to this admission. Anticipate discharge with skilled orders due to wounds, surgical intervention, and multiple comorbidities. Continue intermittent review for discharge care plan.
--- NOTE | 2019-01-04 11:27 | Progress Note - Surgery ---
Subjective Date Seen by a Provider: Jan 04, 2019 Time Seen by a Provider: 11:24 Subjective/Events-last exam Patient doing well. Pain improved. No new complaints. Denies n/v fever sweats chills shortness of breath or chest pain. Focused Exam Lactate Level 01/03/19 11:31: Lactic Acid Level 3.04*H 01/03/19 13:35: Lactic Acid Level 2.07*H 01/03/19 17:39: Lactic Acid Level 1.04 Objective Exam Vital Signs Date Time Temp Pulse Resp B/P (MAP) Pulse Ox O2 Delivery O2 Flow Rate FiO2 01/04/19 08:00 Room Air 01/04/19 07:51 98.6 100 20 130/72 (91) 93 Room Air 01/04/19 03:38 99.0 88 22 144/97 (113) 94 Room Air 01/04/19 00:54 Room Air 01/03/19 23:25 97.8 84 18 144/66 (92) 93 Room Air 01/03/19 23:20 Room Air 01/03/19 23:20 98.1 18 94 Room Air 01/03/19 23:10 18 94 Room Air 01/03/19 23:07 Room Air 01/03/19 23:00 18 98 OxyMask 3 01/03/19 22:55 OxyMask 6 01/03/19 22:50 OxyMask 6 01/03/19 22:50 18 98 OxyMask 6 01/03/19 22:40 20 97 OxyMask 6 01/03/19 22:40 OxyMask 6 01/03/19 22:30 22 96 OxyMask 6 01/03/19 22:25 97.9 24 96 OxyMask 6 01/03/19 22:25 OxyMask 6 01/03/19 20:55 99.1 79 22 144/61 (88) 94 Room Air 01/03/19 20:00 98 Room Air 01/03/19 16:34 Room Air 01/03/19 15:56 97.4 70 22 133/75 (94) 96 Room Air 01/03/19 14:15 97.3 66 16 146/80 (102) 96 Room Air 01/03/19 14:00 97.3 67 20 138/80 (99) 95 Room Air 7/16/19 13:40 98.2 80 18 141/75 (97) 94 01/03/19 13:30 97.9 72 22 131/71 (91) 95 Room Air 01/03/19 13:30 97.9 72 22 131/71 (91) 95 Room Air 01/03/19 13:30 97.9 72 22 131/71 95 Room Air 01/03/19 11:35 98.2 80 18 141/75 (97) 98 Room Air 01/03/19 11:35 98.2 80 18 141/75 (97) 98 Room Air 01/03/19 11:35 98 Room Air I & O 01/04/19 07:00 Intake Total 4180 ml Output Total 1120 ml Balance 3060 ml Capillary Refill : Less Than 3 SecondsLess Than 3 Seconds General Appearance: No Apparent Distress, WD/WN, Chronically ill, Obese HEENT: PERRL/EOMI, Normal ENT Inspection, Pharynx Normal, Moist Mucous Membranes Neck: Full Range of Motion, Normal Inspection, Non Tender Respiratory: Chest Non Tender, Lungs Clear, Normal Breath Sounds, No Accessory Muscle Use, No Respiratory Distress Cardiovascular: Regular Rate, Rhythm, No Edema, No Gallop, No JVD, No Murmur, Normal Peripheral Pulses Gastrointestinal: non tender, soft, other (wound clean right lower abdomen less erythema) Extremity: Normal Capillary Refill, Normal Inspection, Normal Range of Motion, Non Tender, No Calf Tenderness, No Pedal Edema Neurologic/Psychiatric: Alert, No Motor/Sensory Deficits, Normal Mood/Affect, Disoriented Skin: Normal Color, Warm/Dry, Other (right pannus less cellulitis with wound clean) Lymphatic: No Adenopathy Results Lab Laboratory Tests 01/03/19 11:31: White Blood Count 10.3, Red Blood Count 4.71, Hemoglobin 13.7, Hematocrit 42, Mean Corpuscular Volume 90, Mean Corpuscular Hemoglobin 29, Mean Corpuscular Hemoglobin Concent 32, Red Cell Distribution Width 13.8, Platelet Count 358, Mean Platelet Volume 9.9, Neutrophils (%) (Auto) 74, Lymphocytes (%) (Auto) 7L, Monocytes (%) (Auto) 16H, Eosinophils (%) (Auto) 2, Basophils (%) (Auto) 0, Neutrophils # (Auto) 7.6, Lymphocytes # (Auto) 0.7L, Monocytes # (Auto) 1.7H, Eosinophils # (Auto) 0.3, Basophils # (Auto) 0.0, Neutrophils % (Manual) 73, Lymphocytes % (Manual) 6, Monocytes % (Manual) 19, Eosinophils % (Manual) 0, Basophils % (Manual) 0, Band Neutrophils 2, Blood Morphology Comment NORMAL, Prothrombin Time 13.5, INR Comment 1.0, Activated Partial Thromboplast Time 31, Sodium Level 137, Potassium Level 4.0, Chloride Level 100, Carbon Dioxide Level 26, Anion Gap 11, Blood Urea Nitrogen 22H, Creatinine 0.89, Estimat Glomerular Filtration Rate > 60, BUN/Creatinine Ratio 25, Glucose Level 134H, Lactic Acid Level 3.04*H, Calcium Level 10.0, Corrected Calcium 10.2H, Total Bilirubin 0.7, Aspartate Amino Transf (AST/SGOT) 23, Alanine Aminotransferase (ALT/SGPT) 29, Alkaline Phosphatase 84, Total Protein 6.7, Albumin 3.8 01/03/19 13:35: Lactic Acid Level 2.07*H 01/03/19 15:40: Glucometer 111H 01/03/19 17:39: Lactic Acid Level 1.04 01/03/19 20:40: Glucometer 149H 01/03/19 23:36: Glucometer 153H 01/04/19 05:28: White Blood Count 7.3, Red Blood Count 4.38, Hemoglobin 12.9L, Hematocrit 40, Mean Corpuscular Volume 90, Mean Corpuscular Hemoglobin 30, Mean Corpuscular Hemoglobin Concent 33, Red Cell Distribution Width 13.6, Platelet Count 300, Mean Platelet Volume 10.2, Neutrophils (%) (Auto) 78H, Lymphocytes (%) (Auto) 7L , Monocytes (%) (Auto) 12, Eosinophils (%) (Auto) 3, Basophils (%) (Auto) 0, Neutrophils # (Auto) 5.6, Lymphocytes # (Auto) 0.5L, Monocytes # (Auto) 0.9, Eosinophils # (Auto) 0.2, Basophils # (Auto) 0.0, Sodium Level 138, Potassium Level 4.2, Chloride Level 106, Carbon Dioxide Level 22, Anion Gap 10, Blood Urea Nitrogen 16, Creatinine 0.78, Estimat Glomerular Filtration Rate > 60, BUN/Creatinine Ratio 21, Glucose Level 227H, Calcium Level 8.9, Corrected Calcium 9.4, Total Bilirubin 0.8, Aspartate Amino Transf (AST/SGOT) 21, Alanine Aminotransferase (ALT/SGPT) 26, Alkaline Phosphatase 77, Total Protein 5.9L, Albumin 3.4 01/04/19 06:10: Glucometer 198H 01/04/19 10:41: Glucometer 151H Assessment/Plan Assessment/Plan Assessment/Plan patient with right lower quadrant necrotic wound/abscess with surrounding cellulitis s/p i and d and debridement Irrigate and pack with kerlex/dakins .25% daily Continue with medical management. Clinical Quality Measures DVT/VTE Risk/Contraindication: Risk Factor Score Per Nursin RFS Level Per Nursing on Admit: 4+=Very High DEEDEE SYLVESTER DO Jan 04, 2019 11:27
[2019-01-04 12:01] VITALS: BP 145/76
--- NOTE | 2019-01-04 14:04 | Physical Therapy Evaluation ---
PT Evaluation-General Medical Diagnosis Admission Date Jan 03, 2019 at 12:10 Medical Diagnosis: weakness Onset Date: Jan 03, 2019 Therapy Diagnosis Therapy Diagnosis: impaired mobility, strength, endurance Height/Weight Height (Feet): 6 Height (Inches): 2.00 Weight (Pounds): 324 Weight (Ounces): 3.0 Precautions Precautions/Isolations: Contact Isolation, Fall Prevention, Pressure Ulcer Referral Physician: Tyra Foley DO Reason for Referral: Evaluation/Treatment Medical History Additional Medical History Past Medical History Cardiac: High Cholesterol, Hypertension Neurological: Dementia Reproductive: No Gastrointestinal: Chronic Constipation Musculoskeletal: Arthritis Endocrine: Diabetes, Non-Insulin dep HEENT: Cataract Loss of Vision: Bilateral Hearing Impairment: Hard of Hearing, Bilateral Hearing Aide History of Blood Disorders: No Social History Home: Custodial Prior/Core FIM Prior Level of Function Therapy Code Descriptions/Definitions Functional [place] Measure: 0=Not Assessed/NA 4=Minimal Assistance 1=Total Assistance 5=Supervision or Setup 2=Maximal Assistance 6=Modified [place] 3=Moderate Assistance 7=Complete [place] Therapy Quality Codes: 6 Independent with activity with or without an assistive device 5 Patient requires set up or clean up by helper. Patient completes activity by themselves 4 Supervision or touching assist (CGA). [place] provide cues , steadying assist 3 The helper provides less than half the effort to complete the activity 2 The helper provides more than half the effort to complete the activity 1 Dependent. The helper does all the effort to complete an activity 7 Patient refused to complete or attempt activity 9 The patient did not perform the activity before the current illness or injury 88 Not attempted due to Medical conditions or safety concerns Functional Abilities and Goals: Independent: Patient completed the activities by him/herself, with or without an assistive device, with no assistance from a helper. Needed Some Help: Patient needed partial assistance from another person to complete activities. Dependent: A helper completed the activities for the patient. Unknown: Not Applicable: Bed Mobility: 5 Transfers (B,C,W/C) (FIM): 5 Gait: 4 Prior Devices Use: Motorized scooter, Walker Patient states he was ambulating short distances with physical therapy PT Evaluation-Current Subjective Patient in bed pre tx, agrees to PT, has no complaints of pain. Patient states he doesn't think he will be able to stand but will try. Pt/Family Goals to be able to walker again Objective Patient Orientation: Person, Place, Situation Attachments: Garrett Catheter, IV ROM/Strength ROM Lower Extremities Patient has limited ankle ROM due to bilateral ankle deformities. Strength Lower Extremities 3/5 gross bilateral lower extremities, ankle is 1/5 Sensory Hearing: Impaired Sensation Right Lower Extremit: Intact Sensation Left Lower Extremity: Intact Transfers Therapy Code Descriptions/Definitions Functional [place] Measure: 0=Not Assessed/NA 4=Minimal Assistance 1=Total Assistance 5=Supervision or Setup 2=Maximal Assistance 6=Modified [place] 3=Moderate Assistance 7=Complete [place] Transfers (B, C, W/C) (FIM): 2 Scootin Rollin Supine to/from Sit: 2 Patient was not able to bear enough weight through his legs to stand. He sat at the edge of the bed for about 10 min and performed LE exercises. Balance Sitting Static: Fair Sitting Dynamic: Fair Treatment BLE exercise x15 (LAQ, marching) Assessment/Needs Patient has impaired mobility, strength, endurance. He is not able to stand at this point. Patient in bed post tx with nurse call, phone, tray, all needs met. Rehab Potential: Guarded PT Short Term Goals Short Term Goals Time Frame: Jan 11, 2019 Transfers (B,C,W/C) (FIM): 4 Gait (FIM): 1 Gait Distance Comment: 10' Gait Level of Assist: 4 Gait Assistive Device: FWW PT Plan Problem List Problem List: Activity Tolerance, Functional Strength, Safety, Balance, Gait, Transfer, Bed Mobility, ROM Treatment/Plan Treatment Plan: Continue Plan of Care Treatment Plan: Bed Mobility, Concurrent Therapy, Education, Functional Activity Los, Functional Strength, Gait, Safety, Therapeutic Exercise, Transfers Treatment Duration: Jan 11, 2019 Frequency: 6 times per week Estimated Hrs Per Day: .25 hour per day Patient and/or Family Agrees t: Yes Safety Risks/Education Patient Education: Transfer Techniques, Correct Positioning, Safety Issues Teaching Recipient: Patient Teaching Methods: Demonstration, Discussion Response to Teaching: Reinforcement Needed Discharge Recommendations Plan Patient will perform bed mobility and transfer training, balance and endurance training, functional strengthening, gait training, and education, to improve functional mobility and independence at home. Therapy D/C Recommendations: Home w/ Family Support, Longterm (TCU/NH) Time/GCodes Time In: 1323 Time Out: 1340 Total Billed Treatment Time: 17 Total Billed Treatment 1 visit QUINCY 17' HOMER PARRA PT Jan 04, 2019 14:04
--- NOTE | 2019-01-04 14:41 | Anesthesia-General Post-Op ---
General Patient Condition Mental Status/LOC: Same as Preop Cardiovascular: Satisfactory Nausea/Vomiting: Absent Respiratory: Satisfactory Pain: Controlled Complications: Absent Post Op Complications Complications None Follow Up Care/Instructions Patient Instructions None needed. Anesthesia/Patient Condition Patient Condition Patient is doing well, no complaints, stable vital signs, no apparent adverse anesthesia problems. No complications reported per nursing. MICHAEL DYER CRNA Jan 04, 2019 14:41
[2019-01-04 15:26] VITALS: BP 156/71
[2019-01-04] MEDS: ATORVASTATIN 10 MG (LIPITOR) TABLET PO SCH (16:03)
[2019-01-04] MEDS: TAMSULOSIN 0.4 MG (FLOMAX) CAP PO SCH (18:40)
[2019-01-04 19:16] VITALS: BP 131/79
[2019-01-05 00:06] VITALS: BP 153/70
[2019-01-05] MEDS: NS IV 1000 ML 1,000 ML IV SCH ×2 (00:06→09:03)
[2019-01-05] MEDS: VANCOMYCIN 2000 MG/NS 500 ML IVPB IV SCH ×4 (01:18→14:43)
[2019-01-05] MEDS: PIPERACILLIN/TAZO 4.5 GM/NS 100 ML IV SCH ×6 (02:27→17:54)
[2019-01-05 04:20] VITALS: BP 160/75
[2019-01-05] MEDS: inSUlin ASPART (NovoLOG) 1 UNIT/0.01 ML (CHARGE PER UNIT) SC SCH ×7 (06:01→21:42)
[2019-01-05 06:17] LABS: BASOPHILS % (AUTO) 1 % (0-10); EOSINOPHILS # (AUTO) 0.3 10^3/uL (0.0-0.3); EOSINOPHILS % (AUTO) 5 % (0-10); HEMATOCRIT 37 % (40-54); HEMOGLOBIN 11.7 G/DL (13.3-17.7); LYMPHOCYTES # (AUTO) 0.5 X 10^3 (1.0-4.0); LYMPHOCYTES % (AUTO) 8 % (12-44); MEAN CORPUSCULAR HEMOGLOBIN 29 PG (25-34); MEAN CORPUSCULAR HGB CONC 32 G/DL (32-36); MEAN CORPUSCULAR VOLUME 91 FL (80-99); MEAN PLATELET VOLUME 9.8 FL (7.4-10.4); MONOCYTES # (AUTO) 0.9 X 10^3 (0.0-1.0); MONOCYTES % (AUTO) 15 % (0-12); NEUTROPHILS # (AUTO) 4.4 X 10^3 (1.8-7.8); NEUTROPHILS % (AUTO) 71 % (42-75); PLATELET COUNT 308 10^3/uL (130-400); RED CELL DISTRIBUTION WIDTH 13.7 % (10.0-14.5); WHITE BLOOD COUNT 6.2 10^3/uL (4.3-11.0)
[2019-01-05 06:53] LABS: ALANINE AMINOTRANSFERASE 23 U/L (0-55); ALBUMIN 3.1 GM/DL (3.2-4.5); ALKALINE PHOSPHATASE 77 U/L (40-136); BILIRUBIN,TOTAL 0.6 MG/DL (0.1-1.0); BUN/CREATININE RATIO 20; CALCIUM 8.6 MG/DL (8.5-10.1); CARBON DIOXIDE 23 MMOL/L (21-32); CHLORIDE 107 MMOL/L (98-107); CREATININE SERUM 0.71 MG/DL (0.60-1.30); GFR ESTIMATED > 60; GLUCOSE 179 MG/DL (70-105); POTASSIUM 3.9 MMOL/L (3.6-5.0); SODIUM 138 MMOL/L (135-145); TOTAL PROTEIN 5.6 GM/DL (6.4-8.2)
[2019-01-05 08:28] VITALS: BP 167/75
[2019-01-05] MEDS: ENALAPRIL 10 MG (VASOTEC) TAB PO SCH ×2 (09:03→21:12)
[2019-01-05] MEDS: LACTOBACILLUS ACIDOPHILUS (PROBIOTIC) CAPSULE PO SCH ×2 (09:03→21:13)
[2019-01-05] MEDS: GABAPENTIN 300 MG (NEURONTIN) CAP PO SCH ×2 (09:03→21:12)
[2019-01-05] MEDS: ASPIRIN E.C. 81 MG (ECOTRIN) TAB PO SCH (09:03)
[2019-01-05] MEDS: amLODIPine 5 MG (NORVASC) TAB PO SCH (09:03)
[2019-01-05] MEDS: DOCUSATE SODIUM 100 MG (COLACE) CAP PO SCH ×2 (09:03→21:12)
[2019-01-05] MEDS: meTOprolol TARTRATE 50 MG (LOPRESSOR) TAB PO SCH ×2 (09:03→21:12)
[2019-01-05] MEDS: DAKIN'S 1/2 STRENGTH (0.25%) 473 ML BTL TOP SCH (09:05)
[2019-01-05] MEDS: ARTIFICAL TEARS 0.4 ML UNIT DOSE (REFRESH PLUS) OU SCH ×2 (09:05→21:12)
[2019-01-05] MEDS: FINASTERIDE (PROSCAR) 5 MG TAB PO SCH (09:05)
--- NOTE | 2019-01-05 09:43 | Physical Therapy Daily Note ---
PT Daily Note-Current Subjective After redirecting patient multiple times, patient reports they use a Julianne lift at [facility] for mobility. Mental Status Patient Orientation: Person, Time, Situation Attachments: Garrett Catheter, IV Transfers Therapy Code Descriptions/Definitions Functional [place] Measure: 0=Not Assessed/NA 4=Minimal Assistance 1=Total Assistance 5=Supervision or Setup 2=Maximal Assistance 6=Modified [place] 3=Moderate Assistance 7=Complete [place] Therapy Quality Codes: 6 Independent with activity with or without an assistive device 5 Patient requires set up or clean up by helper. Patient completes activity by themselves 4 Supervision or touching assist (CGA). [place] provide cues , steadying assist 3 The helper provides less than half the effort to complete the activity 2 The helper provides more than half the effort to complete the activity 1 Dependent. The helper does all the effort to complete an activity 7 Patient refused to complete or attempt activity 9 The patient did not perform the activity before the current illness or injury 88 Not attempted due to Medical conditions or safety concerns Transfers (B, C, W/C) (FIM): 1 Scootin Supine to/from Sit: 1 dependent assist to sit EOB x 14 min with exercises Exercises Supine Ex: Ankle pumps, Quad Set, Heel Slides Supine Reps: 15 (AAROM with HS) Seated Therapy Exercises: Long arc quads Seated Reps: 15 (3 sets AROM) Assessment Patient required bed to be placed in Trendelenburg to attain proper positioning when returning to bed from seated position. Patient tolerates minimal activity due to severe deconditioned state and morbid obesity. PT Short Term Goals Short Term Goals Time Frame: Jan 11, 2019 Transfers (B,C,W/C) (FIM): 4 Gait (FIM): 1 Gait Distance Comment: 10' Gait Level of Assist: 4 Gait Assistive Device: FWW PT Plan Treatment/Plan Treatment Plan: Continue Plan of Care Treatment Plan: Bed Mobility, Concurrent Therapy, Education, Functional Activity Los, Functional Strength, Gait, Safety, Therapeutic Exercise, Transfers Treatment Duration: Jan 11, 2019 Frequency: 6 times per week Estimated Hrs Per Day: .25 hour per day Patient and/or Family Agrees t: Yes Time/GCodes Time In: 815 Time Out: 838 Total Billed Treatment Time: 23 Total Billed Treatment 1 visit FA 14 min EX 9 min GONZALO MILIAN PT Jan 05, 2019 09:43
--- NOTE | 2019-01-05 09:59 | Occupational Therapy Eval ---
OT Evaluation-General/PLF Medical Diagnosis Admission Date Jan 03, 2019 at 12:10 Medical Diagnosis: weakness Onset Date: Jan 03, 2019 Therapy Diagnosis Therapy Diagnosis: decr self care, weakness, decr funct mobility, decr act velma Height/Weight Height (Feet): 6 Height (Inches): 2.00 Weight (Pounds): 324 Weight (Ounces): 3.0 Precautions Precautions/Isolations: Contact Isolation Safety Interventions: Bed Exit Alarm Referral Physician: Tyra Foley DO Referral Reason: Evaluation/Treatment Medical History Pertinent Medical History: Arthritis, DM, Dementia Additional Medical History Incontinent. Cataracts. [place] with bilat hearing aids Current History Admitted from [facility] with pannus cellulitis and sepsis. Had I and D on 01-04-19 for wound on pannus. Reviewed History: Yes Social History Home: [facility] ([facility]) ADL-Prior Level of Function Therapy Code Descriptions/Definitions Functional [place] Measure: 0=Not Assessed/NA 4=Minimal Assistance 1=Total Assistance 5=Supervision or Setup 2=Maximal Assistance 6=Modified [place] 3=Moderate Assistance 7=Complete [place] Therapy Quality Codes: 6 Independent with activity with or without an assistive device 5 Patient requires set up or clean up by helper. Patient completes activity by themselves 4 Supervision or touching assist (CGA). [place] provide cues , steadying assist 3 The helper provides less than half the effort to complete the activity 2 The helper provides more than half the effort to complete the activity 1 Dependent. The helper does all the effort to complete an activity 7 Patient refused to complete or attempt activity 9 The patient did not perform the activity before the current illness or injury 88 Not attempted due to Medical conditions or safety concerns Functional Abilities and Goals: Independent: Patient completed the activities by him/herself, with or without an assistive device, with no assistance from a helper. Needed Some Help: Patient needed partial assistance from another person to com plete activities. Dependent: A helper completed the activities for the patient. Unknown: Not Applicable: ADL PLOF Comments Pt reported that recently staff have been using Julianne to transfer him but before that he transferred independently from power chair to lift chair, using transfer pole. He uses a large restroom near his room for toileting and transfers himself on/off toilet with grab bars. He is able to dress his upper body but has help putting on shoes and socks. He said that he showers himself in large shower room. No difficulties feeding himself or competing grooming tasks from power chair level. He is retired from [employer] and said that he has been at [employer] for 5 years. He has help with medications. Self Care: Needed Some Help Functional Cognition: Needed Some Help DME/Equipment: Bath Bench DME/Equipment Comments Power chair OT Current Status Subjective Pt seen in room, up in bed, agreeable to OT. Pain reported 0/10. Appearance Alert, cooperative Mental Status/Objective Patient Orientation: Person, Place, Time, Situation Attachments: Garrett Catheter, IV Current Glasses/Contacts: Yes Hearing Aids: Yes (not here) Dentures/Partials: No Hand Dominance: Right Upper Extremity ROM Grossly WFL bilat (limited at shoulders to approx 90 degrees.) some arthritic changes in hands limiting making a full fist Upper Extremity Strength Grossly 3+/5 bilat ADL-Treatment ADL-Current Pt is dependant to move from supine to sit EOB with PT. Reported that he has been able to feed himself without difficulty. Therapy Code Descriptions/Definitions Functional [place] Measure: 0=Not Assessed/NA 4=Minimal Assistance 1=Total Assistance 5=Supervision or Setup 2=Maximal Assistance 6=Modified [place] 3=Moderate Assistance 7=Complete [place] Therapy Quality Codes: 6 Independent with activity with or without an assistive device 5 Patient requires set up or clean up by helper. Patient completes activity by themselves 4 Supervision or touching assist (CGA). [place] provide cues , steadying assist 3 The helper provides less than half the effort to complete the activity 2 The helper provides more than half the effort to complete the activity 1 Dependent. The helper does all the effort to complete an activity 7 Patient refused to complete or attempt activity 9 The patient did not perform the activity before the current illness or injury 88 Not attempted due to Medical conditions or safety concerns Education OT Patient Education: Purpose of tx/functional activities, Rehab process Teaching Recipient: Patient Teaching Methods: Discussion Response to Teaching: Verbalize Understanding OT Associate Veterinarian Goals Long-Term Goals Time Frame: Jan 13, 2019 Eating (FIM): 7 Grooming(FIM): 5 Bathing(FIM): 3 Upper Body Dressing(FIM): 4 Lower Body Dressing(FIM): 3 Toileting(FIM): 3 Toilet/Commode Transfer(FIM): 4 Additional Goals: 1-Demonstrate ADL Tasks, 2-Verbalize Understanding, 3- ImproveStrength/Los 1=Demonstrate adherence to instructed precautions during ADL tasks. 2=Patient will verbalize/demonstrate understanding of assistive devices/modifications for ADL. 3=Patient will improve strength/tolerance for activity to enable patient to perform ADL's. OT Education/Plan Problem List/Assessment Assessment: Decreased Activ Tolerance, Decreased UE Strength, Dependent Transfers, Impaired Bed Mobility, Impaired Self-Care Skills Pt would benefit from skilled OT to increase his independence in basic self care to allow him to safely return to care center for continued therapy Discharge Recommendations Plan/Recommendations: Continue POC Therapy D/C Recommendations: Residential (TCU/NH) (OT) Treatment Plan/Plan of Care Treatment,Training & Education: Yes Patient would benefit from OT for education, treatment and training to promote independence in ADL's, mobility, safety and/or upper extremity function for ADL's. Plan of Care: ADL Retraining, Functional Mobility, UE Funct Exercise/Act, UE Neuromus Re-Ed/Coord Treatment Duration: Jan 13, 2019 Frequency: 5 times per week Estimated Hrs Per Day: .5 hour per day Agreement: Yes Rehab Potential: Guarded Time/GCodes Start Time: 09:20 Stop Time: 09:45 Total Time Billed (hr/min): 25 Billed Treatment Time visit, evaluation moderate intensity 25 minutes HAJA TAFOYA OT Jan 05, 2019 09:59
--- NOTE | 2019-01-05 10:19 | Progress Note - Hospitalist ---
Subjective HPI/CC On Admission Date Seen by Provider: Jan 05, 2019 Time Seen by Provider: 09:00 Chief complaint: Pannus cellulitis with necrotic subcutaneous tissue History of present illness: This is a 78-year-old white male half-way patient at [facility] who has a past medical history of hypertension and diabetes insulin-dependent who is resided in the half-way for the past 5 years who has dementia and severe presbycusis who presented to the ER with fever and altered mental status. He had been placed on Cipro and clindamycin for pannus cellulitis but it continued to worsen and he was found to have elevated lactic acid of 3.2 requiring IV fluids and broad-spectrum antibiotics of Zosyn and vancomycin. Wound care Dr. Anderson assessed the patient and found to have necrotic subcutaneous tissue and Dr. Childs was consulted who will evaluate for debridement. Patient denies any pain but he reports that he never has any pain anywhere ever. His white count was normal at 10,000 and his repeat lactic acid was down to 2 after gentle IV fluids given. Subjective/Events-last exam Pt in a much better place and better attitude today. Antibiotic continues. Will heplock IV fluid because he is eating and drinking well to prevent volume overload. Pain is well controlled. Home medications, most are being continued. Appreciate general surgery management of the necrotic subcutaneous tissue. S/P debridement. Review of Systems Gastrointestinal: Abdominal Pain Focused Exam Lactate Level 01/03/19 11:31: Lactic Acid Level 3.04*H 01/03/19 13:35: Lactic Acid Level 2.07*H 01/03/19 17:39: Lactic Acid Level 1.04 Objective Exam Vital Signs Vital Signs Date Time Temp Pulse Resp B/P (MAP) Pulse Ox O2 Delivery O2 Flow Rate FiO2 01/05/19 15:22 99.0 61 20 156/77 (103) 96 Room Air 01/03/19 23:00 3 Capillary Refill : Less Than 3 SecondsLess Than 3 Seconds General Appearance: No Apparent Distress, WD/WN, Chronically ill, Obese HEENT: PERRL/EOMI, Normal ENT Inspection, Pharynx Normal, Moist Mucous Membranes Neck: Full Range of Motion, Normal Inspection, Non Tender Respiratory: Chest Non Tender, Lungs Clear, Normal Breath Sounds, No Accessory Muscle Use, No Respiratory Distress Cardiovascular: Regular Rate, Rhythm, No Edema, No Gallop, No JVD, No Murmur, Normal Peripheral Pulses Gastrointestinal: Normal Bowel Sounds, No Organomegaly, No Pulsatile Mass, Non Tender, Soft Back: Normal Inspection, No CVA Tenderness, No Vertebral Tenderness Extremity: Normal Capillary Refill, Normal Inspection, Normal Range of Motion, Non Tender, No Calf Tenderness, No Pedal Edema Neurologic/Psychiatric: Alert, No Motor/Sensory Deficits, Normal Mood/Affect, Disoriented Skin: Normal Color, Warm/Dry, Other (right pannus cellulitis with necrosis of SQ tissue and left leg ulcer with redness surrounding) Lymphatic: No Adenopathy Results/Procedures Lab Laboratory Tests 01/05/19 05:45 Patient resulted labs reviewed. Assessment/Plan Assessment and Plan Assess & Plan/Chief Complaint Assessment: Pannus cellulitis with necrotic subcutaneous tissue s/p debridement by general surgery Dr. Childs POD # 2 Sepsis maintained on IVF gently Diabetes mellitus high risk for necrotizing fasciitis Left leg ulcer with surrounding cellulitis Diabetes mellitus insulin-dependent Hypertension Obesity Dementia Presbycusis Elevated lactic acid s/p IVF Plan: Appreciate Dr. Childs and Dr. Anderson consultation Broad-spectrum antibiotics of Zosyn and vancomycin Debridement per general surgery Home meds including insulin Pain medication IV fluids heplocked Monitor closely PT/OT Diagnosis/Problems Diagnosis/Problems (1) Sepsis Status: Acute Qualifiers: Sepsis type: sepsis due to unspecified organism Qualified Codes: A41.9 - Sepsis, unspecified organism (2) Abdominal pannus Status: Chronic (3) Dementia Status: Chronic Qualifiers: Dementia type: Alzheimer's disease (4) Presbycusis of both ears Status: Chronic (5) Debility Status: Chronic (6) Lactic acidemia Status: Acute (7) Cellulitis Status: Acute Qualifiers: Site of cellulitis: trunk Site of cellulitis of trunk: abdominal wall Qualified Codes: L03.311 - Cellulitis of abdominal wall (8) Cellulitis of left lower extremity Status: Acute (9) Pedal edema Status: Acute Clinical Quality Measures DVT/VTE Risk/Contraindication: Risk Factor Score Per Nursin RFS Level Per Nursing on Admit: 4+=Very High MINNIE SANDERS DO Jan 05, 2019 10:19
[2019-01-05] MEDS: SENNA W/DOCUSATE (SENOKOT S) TABLET PO SCH ×2 (10:25→21:12)
[2019-01-05] MEDS: ATORVASTATIN 10 MG (LIPITOR) TABLET PO SCH (14:41)
[2019-01-05] MEDS: NYSTATIN CREAM (MYCOSTATIN) 30 GM TUBE TP SCH ×2 (14:43→21:14)
[2019-01-05 15:22] VITALS: BP 156/77
--- NOTE | 2019-01-05 17:52 | Progress Note - Surgery ---
Subjective Date Seen by a Provider: Jan 05, 2019 Time Seen by a Provider: 08:38 Subjective/Events-last exam Patient doing okay. Pain improved. Denies any new complaints. denies n/v fever sweats chills shortness of breath or chest pain. Focused Exam Lactate Level 01/03/19 11:31: Lactic Acid Level 3.04*H 01/03/19 13:35: Lactic Acid Level 2.07*H 01/03/19 17:39: Lactic Acid Level 1.04 Objective Exam Vital Signs Date Time Temp Pulse Resp B/P (MAP) Pulse Ox O2 Delivery O2 Flow Rate FiO2 01/05/19 15:22 99.0 61 20 156/77 (103) 96 Room Air 01/05/19 08:28 98.3 74 20 167/75 (105) 95 Room Air 01/05/19 08:00 Room Air 01/05/19 04:20 97.4 69 22 160/75 (103) 96 Room Air 01/05/19 00:06 98.1 67 20 153/70 (97) 95 Room Air 01/04/19 20:00 Room Air 01/04/19 19:16 99.6 83 20 131/79 (96) 95 Room Air I & O 01/05/19 07:00 Intake Total 3530 ml Output Total 2175 ml Balance 1355 ml Capillary Refill : Less Than 3 SecondsLess Than 3 Seconds General Appearance: No Apparent Distress, WD/WN, Chronically ill, Obese HEENT: PERRL/EOMI, Normal ENT Inspection, Pharynx Normal, Moist Mucous Membranes Neck: Full Range of Motion, Normal Inspection, Non Tender Respiratory: Chest Non Tender, No Accessory Muscle Use, No Respiratory Distress Cardiovascular: Regular Rate, Rhythm, No Murmur Gastrointestinal: non tender, soft, other (wound clean right lower abdomen less erythema) Extremity: Normal Capillary Refill, Normal Inspection, Normal Range of Motion, Non Tender, No Calf Tenderness, No Pedal Edema Neurologic/Psychiatric: Alert, No Motor/Sensory Deficits, Normal Mood/Affect Skin: Normal Color, Warm/Dry, Other (right pannus cellulitis with necrosis of SQ tissue and left leg ulcer with redness surrounding) Lymphatic: No Adenopathy Results Lab Laboratory Tests 01/04/19 20:50: Glucometer 192H 01/05/19 00:16: Glucometer 179H 01/05/19 05:09: Glucometer 174H 01/05/19 05:45: White Blood Count 6.2, Red Blood Count 4.01L, Hemoglobin 11.7L, Hematocrit 37L, Mean Corpuscular Volume 91, Mean Corpuscular Hemoglobin 29, Mean Corpuscular Hemoglobin Concent 32, Red Cell Distribution Width 13.7, Platelet Count 308, Mean Platelet Volume 9.8, Neutrophils (%) (Auto) 71, Lymphocytes (%) (Auto) 8L, Monocytes (%) (Auto) 15H, Eosinophils (%) (Auto) 5, Basophils (%) (Auto) 1, Neutrophils # (Auto) 4.4, Lymphocytes # (Auto) 0.5L, Monocytes # (Auto) 0.9, Eosinophils # (Auto) 0.3, Basophils # (Auto) 0.0, Sodium Level 138, Potassium Level 3.9, Chloride Level 107, Carbon Dioxide Level 23, Anion Gap 8, Blood Urea Nitrogen 14, Creatinine 0.71, Estimat Glomerular Filtration Rate > 60, BUN/Creatinine Ratio 20, Glucose Level 179H, Calcium Level 8.6, Corrected Calcium 9.3, Total Bilirubin 0.6, Aspartate Amino Transf (AST/SGOT) 16, Alanine Aminotransferase (ALT/SGPT) 23, Alkaline Phosphatase 77, Total Protein 5.6L, Albumin 3.1L 01/05/19 11:34: Glucometer 184H 01/05/19 15:28: Glucometer 170H Microbiology 01/03/19 Blood Culture - Preliminary, Resulted No growth 01/03/19 Gram Stain - Final, Resulted 01/03/19 Anaerobic Culture - Preliminary, Resulted 01/03/19 Surgical Culture - Final, Resulted Staphylococcus aureus Assessment/Plan Assessment/Plan Assessment/Plan patient with right lower quadrant necrotic wound/abscess with surrounding cellulitis s/p i and d and debridement Irrigate and pack with kerlex/dakins .25% daily Continue with medical management. overall improving Clinical Quality Measures DVT/VTE Risk/Contraindication: Risk Factor Score Per Nursin RFS Level Per Nursing on Admit: 4+=Very High DEEDEE SYLVESTER DO Jan 05, 2019 17:52
[2019-01-05] MEDS: TAMSULOSIN 0.4 MG (FLOMAX) CAP PO SCH (17:53)
[2019-01-05] MEDS: HYDROcodone/APAP 5 MG/325 MG (LORTAB) TAB PO PRN (23:57)
[2019-01-06] VITALS: BP 159/77
[2019-01-06] MEDS: VANCOMYCIN 2000 MG/NS 500 ML IVPB IV SCH ×2 (02:19)
[2019-01-06] MEDS: PIPERACILLIN/TAZO 4.5 GM/NS 100 ML IV SCH ×2 (02:21)
[2019-01-06] MEDS: inSUlin ASPART (NovoLOG) 1 UNIT/0.01 ML (CHARGE PER UNIT) SC SCH ×7 (06:03→22:08)
[2019-01-06 06:12] LABS: BASOPHILS % (AUTO) 1 % (0-10); EOSINOPHILS # (AUTO) 0.3 10^3/uL (0.0-0.3); EOSINOPHILS % (AUTO) 5 % (0-10); HEMATOCRIT 37 % (40-54); HEMOGLOBIN 11.7 G/DL (13.3-17.7); LYMPHOCYTES # (AUTO) 0.7 X 10^3 (1.0-4.0); LYMPHOCYTES % (AUTO) 11 % (12-44); MEAN CORPUSCULAR HEMOGLOBIN 29 PG (25-34); MEAN CORPUSCULAR HGB CONC 32 G/DL (32-36); MEAN CORPUSCULAR VOLUME 91 FL (80-99); MEAN PLATELET VOLUME 10.1 FL (7.4-10.4); MONOCYTES # (AUTO) 0.9 X 10^3 (0.0-1.0); MONOCYTES % (AUTO) 14 % (0-12); NEUTROPHILS # (AUTO) 4.3 X 10^3 (1.8-7.8); NEUTROPHILS % (AUTO) 69 % (42-75); PLATELET COUNT 306 10^3/uL (130-400); RED CELL DISTRIBUTION WIDTH 13.3 % (10.0-14.5); WHITE BLOOD COUNT 6.2 10^3/uL (4.3-11.0)
[2019-01-06 06:47] LABS: ALANINE AMINOTRANSFERASE 23 U/L (0-55); ALBUMIN 3.2 GM/DL (3.2-4.5); ALKALINE PHOSPHATASE 68 U/L (40-136); BILIRUBIN,TOTAL 0.5 MG/DL (0.1-1.0); BUN/CREATININE RATIO 21; CALCIUM 8.8 MG/DL (8.5-10.1); CARBON DIOXIDE 23 MMOL/L (21-32); CHLORIDE 107 MMOL/L (98-107); CREATININE SERUM 0.73 MG/DL (0.60-1.30); GFR ESTIMATED > 60; GLUCOSE 173 MG/DL (70-105); SODIUM 137 MMOL/L (135-145); TOTAL PROTEIN 5.6 GM/DL (6.4-8.2)
[2019-01-06 08:00] VITALS: BP 130/65
[2019-01-06] MEDS: FINASTERIDE (PROSCAR) 5 MG TAB PO SCH (09:31)
[2019-01-06] MEDS: meTOprolol TARTRATE 50 MG (LOPRESSOR) TAB PO SCH ×2 (09:31→22:10)
[2019-01-06] MEDS: DOCUSATE SODIUM 100 MG (COLACE) CAP PO SCH ×2 (09:31→22:07)
[2019-01-06] MEDS: ASPIRIN E.C. 81 MG (ECOTRIN) TAB PO SCH (09:31)
[2019-01-06] MEDS: amLODIPine 5 MG (NORVASC) TAB PO SCH (09:32)
[2019-01-06] MEDS: SENNA W/DOCUSATE (SENOKOT S) TABLET PO SCH ×2 (09:32→22:13)
[2019-01-06] MEDS: ENALAPRIL 10 MG (VASOTEC) TAB PO SCH ×2 (09:32→22:10)
[2019-01-06] MEDS: LACTOBACILLUS ACIDOPHILUS (PROBIOTIC) CAPSULE PO SCH ×2 (09:32→22:07)
[2019-01-06] MEDS: GABAPENTIN 300 MG (NEURONTIN) CAP PO SCH ×2 (09:32→22:09)
[2019-01-06] MEDS: ARTIFICAL TEARS 0.4 ML UNIT DOSE (REFRESH PLUS) OU SCH ×2 (09:32→22:07)
[2019-01-06] MEDS: DAKIN'S 1/2 STRENGTH (0.25%) 473 ML BTL TOP SCH (09:34)
[2019-01-06] MEDS: NYSTATIN CREAM (MYCOSTATIN) 30 GM TUBE TP SCH ×3 (09:34→22:08)
--- NOTE | 2019-01-06 10:29 | Physical Therapy Daily Note ---
PT Daily Note-Current Subjective AGrees to PT. Reports they have recently been using a darleen but iin the last 2 months he was able to work. Reports he was working with therapy and walking with a 4WW in the multani. Wants to sit up and agrees to try to stand today. Transfers Therapy Code Descriptions/Definitions Functional [place] Measure: 0=Not Assessed/NA 4=Minimal Assistance 1=Total Assistance 5=Supervision or Setup 2=Maximal Assistance 6=Modified [place] 3=Moderate Assistance 7=Complete [place] Therapy Quality Codes: 6 Independent with activity with or without an assistive device 5 Patient requires set up or clean up by helper. Patient completes activity by themselves 4 Supervision or touching assist (CGA). [place] provide cues , steadying assist 3 The helper provides less than half the effort to complete the activity 2 The helper provides more than half the effort to complete the activity 1 Dependent. The helper does all the effort to complete an activity 7 Patient refused to complete or attempt activity 9 The patient did not perform the activity before the current illness or injury 88 Not attempted due to Medical conditions or safety concerns Treatments Supine to sit EOB with mod assist with pt able to initiate tasks. Sat EOB several minutes and was able to scoot to put feet on the floor. Pt SBA with seated balance. Sit to stand x 3 reps with max assist with 2 persons for safety. Pt able to come to near full stand but does lack full hip extension. Pt unable to side step to move up in the bed. Sit to supine with mod assist; dep to scoot up in bed but pt able to participate in the scooting. In bed with needs met post treatmeht. Assessment Current Status: Good Progress Pt with improved functional transfers and able to work on sit to stand. Pt motivated. Pt compliant. Pt will benefit from contined skilled therapy services to promote functional mobility and strength and return to a ambulatory status. PT Short Term Goals Short Term Goals Time Frame: Jan 11, 2019 Gait (FIM): 1 Gait Distance Comment: 10' Gait Level of Assist: 4 Gait Assistive Device: FWW PT Plan Problem List Problem List: Activity Tolerance, Functional Strength, Safety, Balance, Gait, Transfer, Bed Mobility Treatment/Plan Treatment Plan: Continue Plan of Care Treatment Plan: Bed Mobility, Concurrent Therapy, Education, Functional Activity Los, Functional Strength, Gait, Safety, Therapeutic Exercise, Transfers Treatment Duration: Jan 11, 2019 Frequency: 6 times per week Estimated Hrs Per Day: .25 hour per day Patient and/or Family Agrees t: Yes Safety Risks/Education Patient Education: Transfer Techniques, Safety Issues Teaching Recipient: Patient Teaching Methods: Discussion Response to Teaching: Return Demonstration, Reinforcement Needed Discharge Recommendations Therapy D/C Recommendations: Jail (TCU/NH) (skilled PT) Time/GCodes Time In: 905 Time Out: 931 Total Billed Treatment Time: 26 Total Billed Treatment visit FA 26 SUMI FELIX PT Jan 06, 2019 10:29
--- NOTE | 2019-01-06 10:33 | Progress Note - Hospitalist ---
Subjective HPI/CC On Admission Date Seen by Provider: Jan 06, 2019 Time Seen by Provider: 09:30 Chief complaint: Pannus cellulitis with necrotic subcutaneous tissue History of present illness: This is a 78-year-old white male senior care patient at Replaced by [facility] who has a past medical history of hypertension and diabetes insulin-dependent who is resided in the senior care for the past 5 years who has dementia and severe presbycusis who presented to the ER with fever and altered mental status. He had been placed on Cipro and clindamycin for pannus cellulitis but it continued to worsen and he was found to have elevated lactic acid of 3.2 requiring IV fluids and broad-spectrum antibiotics of Zosyn and vancomycin. Wound care Dr. Anderson assessed the patient and found to have necrotic subcutaneous tissue and Dr. Childs was consulted who will evaluate for debridement. Patient denies any pain but he reports that he never has any pain anywhere ever. His white count was normal at 10,000 and his repeat lactic acid was down to 2 after gentle IV fluids given. Subjective/Events-last exam Patient doing much better MRSA noted on culture so we'll discontinue Zosyn Checked meds and labs Overall very optimistic about how he is doing and he understands the need to monitor the wound closely prior to discharge back to [facility] Review of Systems General: Fatigue Focused Exam Lactate Level 01/03/19 13:35: Lactic Acid Level 2.07*H 01/03/19 17:39: Lactic Acid Level 1.04 Objective Exam Vital Signs Vital Signs Date Time Temp Pulse Resp B/P (MAP) Pulse Ox O2 Delivery O2 Flow Rate FiO2 01/06/19 08:00 Room Air 01/06/19 08:00 98.9 73 18 130/65 (86) 95 01/03/19 23:00 3 Capillary Refill : Less Than 3 SecondsLess Than 3 Seconds General Appearance: No Apparent Distress, WD/WN, Chronically ill, Obese HEENT: PERRL/EOMI, Normal ENT Inspection, Pharynx Normal, Moist Mucous Membranes Neck: Full Range of Motion, Normal Inspection, Non Tender Respiratory: Chest Non Tender, Lungs Clear, Normal Breath Sounds, No Accessory Muscle Use, No Respiratory Distress Cardiovascular: Regular Rate, Rhythm, No Edema, No Gallop, No JVD, No Murmur, Normal Peripheral Pulses Gastrointestinal: Normal Bowel Sounds, No Organomegaly, No Pulsatile Mass, Non Tender, Soft Back: Normal Inspection, No CVA Tenderness, No Vertebral Tenderness Extremity: Normal Capillary Refill, Normal Inspection, Normal Range of Motion, Non Tender, No Calf Tenderness, No Pedal Edema Neurologic/Psychiatric: Alert, No Motor/Sensory Deficits, Normal Mood/Affect, Disoriented Skin: Normal Color, Warm/Dry, Other (right pannus cellulitis with necrosis of SQ tissue and left leg ulcer with redness surrounding) Lymphatic: No Adenopathy Results/Procedures Lab Laboratory Tests 01/06/19 05:34 Patient resulted labs reviewed. Assessment/Plan Assessment and Plan Assess & Plan/Chief Complaint Assessment: Pannus cellulitis with necrotic subcutaneous tissue s/p debridement by general surgery Dr. Childs POD # 3 MRSA on Cx Sepsis s/p IVF Diabetes mellitus high risk for necrotizing fasciitis Left leg ulcer with surrounding cellulitis Diabetes mellitus insulin-dependent Hypertension Obesity Dementia Presbycusis Elevated lactic acid s/p IVF Plan: Appreciate Dr. Childs and Dr. Anderson consultation Vancomycin only Debridement per general surgery Home meds including insulin Pain medication IV fluids heplocked Monitor closely PT/OT Diagnosis/Problems Diagnosis/Problems (1) Sepsis Status: Acute Qualifiers: Sepsis type: sepsis due to unspecified organism Qualified Codes: A41.9 - Sepsis, unspecified organism (2) Abdominal pannus Status: Chronic (3) Dementia Status: Chronic Qualifiers: Dementia type: Alzheimer's disease (4) Presbycusis of both ears Status: Chronic (5) Debility Status: Chronic (6) Lactic acidemia Status: Acute (7) Cellulitis Status: Acute Qualifiers: Site of cellulitis: trunk Site of cellulitis of trunk: abdominal wall Qualified Codes: L03.311 - Cellulitis of abdominal wall (8) Cellulitis of left lower extremity Status: Acute (9) Pedal edema Status: Acute Clinical Quality Measures DVT/VTE Risk/Contraindication: Risk Factor Score Per Nursin RFS Level Per Nursing on Admit: 4+=Very High MINNIE SANDERS DO Jan 06, 2019 10:32
[2019-01-06] MEDS ORDERED: TROUGH ORDER-PHARMACY XX ONE (13:00)
[2019-01-06] MEDS: HYDROcodone/APAP 5 MG/325 MG (LORTAB) TAB PO PRN (13:24)
--- NOTE | 2019-01-06 13:53 | Occupational Ther Daily Note ---
OT Current Status-Daily Note Subjective Pt seen in room, up in bed, agreeable to OT. No pain reported Appearance Sleepy but easily awakened Mental Status/Objective Therapy Code Descriptions/Definitions Functional [place] Measure: 0=Not Assessed/NA 4=Minimal Assistance 1=Total Assistance 5=Supervision or Setup 2=Maximal Assistance 6=Modified [place] 3=Moderate Assistance 7=Complete [place] Other Treatment Pt education on bilat UE exercises with yellow theraband. Pt recalled exercises that he has done at home. Pt agreed to do recalled exercises over weekend. Theraband left in room. Pt left up in bed, all needs met. Education OT Patient Education: Exercise program Teaching Recipient: Patient Teaching Methods: Discussion Response to Teaching: Verbalize Understanding OT Short Term Goals Short Term Goals 1=Demonstrate adherence to instructed precautions during ADL tasks. 2=Patient will verbalize/demonstrate understanding of assistive devices/modifications for ADL. 3=Patient will improve strength/tolerance for activity to enable patient to perform ADL's. OT Massage Therapist Goals Residential Goals Time Frame: Jan 13, 2019 Eating (FIM): 7 Grooming(FIM): 5 Bathing(FIM): 3 Upper Body Dressing(FIM): 4 Lower Body Dressing(FIM): 3 Toileting(FIM): 3 Toilet/Commode Transfer(FIM): 4 Additional Goals: 1-Demonstrate ADL Tasks, 2-Verbalize Understanding, 3- ImproveStrength/Los 1=Demonstrate adherence to instructed precautions during ADL tasks. 2=Patient will verbalize/demonstrate understanding of assistive devic es/modifications for ADL. 3=Patient will improve strength/tolerance for activity to enable patient to perform ADL's. OT Education/Plan Problem List/Assessment Pt would benefit from skilled OT to increase his independence in basic self care to allow him to safely return to care center for continued therapy Discharge Recommendations Plan/Recommendations: Continue POC Treatment Plan/Plan of Care Patient would benefit from OT for education, treatment and training to promote independence in ADL's, mobility, safety and/or upper extremity function for ADL's. Plan of Care: ADL Retraining, Functional Mobility, UE Funct Exercise/Act, UE Neuromus Re-Ed/Coord Treatment Duration: Jan 13, 2019 Frequency: 5 times per week Estimated Hrs Per Day: .5 hour per day Agreement: Yes Rehab Potential: Guarded Time/GCodes Start Time: 13:00 Stop Time: 13:10 Total Time Billed (hr/min): 10 Billed Treatment Time visit, 10 minutes exercise HAJA TAFOYA OT Jan 06, 2019 13:53
[2019-01-06] MEDS: ATORVASTATIN 10 MG (LIPITOR) TABLET PO SCH (15:33)
[2019-01-06 16:00] VITALS: BP 152/81
--- NOTE | 2019-01-06 16:11 | Progress Note - Surgery ---
Subjective Date Seen by a Provider: Jan 06, 2019 Time Seen by a Provider: 16:05 Subjective/Events-last exam Patient with no complaints. Wound care to right lower abdomen. Less pain. Denies n/v fever sweats chills shortness of breath or chest pain. Focused Exam Lactate Level 01/03/19 17:39: Lactic Acid Level 1.04 Objective Exam Vital Signs Date Time Temp Pulse Resp B/P (MAP) Pulse Ox O2 Delivery O2 Flow Rate FiO2 01/06/19 08:00 Room Air 01/06/19 08:00 98.9 73 18 130/65 (86) 95 Room Air 01/06/19 00:00 97.3 66 20 159/77 (104) 95 Room Air 01/05/19 20:00 Room Air I & O 01/06/19 07:00 Intake Total 2540 ml Output Total 3975 ml Balance -1435 ml Capillary Refill : Less Than 3 SecondsLess Than 3 Seconds General Appearance: No Apparent Distress, WD/WN, Chronically ill, Obese HEENT: PERRL/EOMI, Normal ENT Inspection, Pharynx Normal, Moist Mucous Membranes Neck: Full Range of Motion, Normal Inspection, Non Tender Respiratory: Chest Non Tender, No Accessory Muscle Use, No Respiratory Distress Cardiovascular: Regular Rate, Rhythm Gastrointestinal: non tender, soft, other (wound clean right lower abdomen minimal erythema) Extremity: Normal Capillary Refill, Normal Inspection, Normal Range of Motion, Non Tender, No Calf Tenderness, No Pedal Edema Neurologic/Psychiatric: Alert, No Motor/Sensory Deficits, Normal Mood/Affect, Disoriented Skin: Normal Color, Warm/Dry, Other (right pannus cellulitis with necrosis of SQ tissue and left leg ulcer with redness surrounding) Lymphatic: No Adenopathy Results Lab Laboratory Tests 01/05/19 21:10: Glucometer 188H 01/06/19 05:34: White Blood Count 6.2, Red Blood Count 4.04L, Hemoglobin 11.7L, Hematocrit 37L, Mean Corpuscular Volume 91, Mean Corpuscular Hemoglobin 29, Mean Corpuscular Hemoglobin Concent 32, Red Cell Distribution Width 13.3, Platelet Count 306, Mean Platelet Volume 10.1, Neutrophils (%) (Auto) 69, Lymphocytes (%) (Auto) 11L , Monocytes (%) (Auto) 14H, Eosinophils (%) (Auto) 5, Basophils (%) (Auto) 1, Neutrophils # (Auto) 4.3, Lymphocytes # (Auto) 0.7L, Monocytes # (Auto) 0.9, Eosinophils # (Auto) 0.3, Basophils # (Auto) 0.0, Sodium Level 137, Potassium Level 4.0, Chloride Level 107, Carbon Dioxide Level 23, Anion Gap 7, Blood Urea Nitrogen 15, Creatinine 0.73, Estimat Glomerular Filtration Rate > 60, BUN/Creatinine Ratio 21, Glucose Level 173H, Calcium Level 8.8, Corrected Calcium 9.4, Total Bilirubin 0.5, Aspartate Amino Transf (AST/SGOT) 14, Alanine Aminotransferase (ALT/SGPT) 23, Alkaline Phosphatase 68, Total Protein 5.6L, Albumin 3.2 01/06/19 05:59: Glucometer 152H 01/06/19 11:03: Glucometer 234H 01/06/19 13:10: Vancomycin Level Trough 23.0H Microbiology 01/03/19 Blood Culture - Preliminary, Resulted No growth 01/03/19 Gram Stain - Final, Resulted 01/03/19 Anaerobic Culture - Preliminary, Resulted 01/03/19 Surgical Culture - Final, Resulted Staphylococcus aureus Assessment/Plan Assessment/Plan Assessment/Plan patient with right lower quadrant necrotic wound/abscess with surrounding cellulitis s/p i and d and debridement Irrigate and pack with kerlex/dakins .25% daily Continue with medical management. continues to improve Clinical Quality Measures DVT/VTE Risk/Contraindication: Risk Factor Score Per Nursin RFS Level Per Nursing on Admit: 4+=Very High DEEDEE SYLVESTER DO Jan 06, 2019 16:11
[2019-01-06] MEDS: TAMSULOSIN 0.4 MG (FLOMAX) CAP PO SCH (17:32)
[2019-01-07] VITALS: BP 164/78
[2019-01-07] MEDS: VANCOMYCIN 1500 MG/NS 500 ML IVPB IV SCH ×4 (02:50→14:47)
--- NOTE | 2019-01-07 03:00 | NUR ---
PATIENT HAS SCHEDULED 1500MG VANCOMYCIN TO BE INFUSED. ONLY 2000MG VANCO BAGS PRESENT ON FLOOR. HEALTHCARE NETWORK CONSULTANT MADI CALLED AT 0234. BARREL BURNER SUGGESTED TO INFUSE 390ML OF 2000MG/520ML BAG AT 195ML/HR TO EQUAL DESIRED DOSE OF 1500MG. HEALTHCARE NETWORK CONSULTANT MADI PRESENT IN ROOM AT 0250 WHEN VANCO INFUSION STARTED.
[2019-01-07 06:19] LABS: BASOPHILS % (AUTO) 0 % (0-10); EOSINOPHILS # (AUTO) 0.3 10^3/uL (0.0-0.3); EOSINOPHILS % (AUTO) 5 % (0-10); HEMATOCRIT 37 % (40-54); LYMPHOCYTES # (AUTO) 0.7 X 10^3 (1.0-4.0); LYMPHOCYTES % (AUTO) 9 % (12-44); MEAN CORPUSCULAR HEMOGLOBIN 29 PG (25-34); MEAN CORPUSCULAR HGB CONC 32 G/DL (32-36); MEAN CORPUSCULAR VOLUME 91 FL (80-99); MEAN PLATELET VOLUME 9.6 FL (7.4-10.4); MONOCYTES # (AUTO) 0.8 X 10^3 (0.0-1.0); MONOCYTES % (AUTO) 12 % (0-12); NEUTROPHILS # (AUTO) 5.1 X 10^3 (1.8-7.8); NEUTROPHILS % (AUTO) 73 % (42-75); PLATELET COUNT 353 10^3/uL (130-400); RED CELL DISTRIBUTION WIDTH 13.6 % (10.0-14.5); WHITE BLOOD COUNT 6.9 10^3/uL (4.3-11.0)
[2019-01-07 06:36] LABS: ALANINE AMINOTRANSFERASE 28 U/L (0-55); ALBUMIN 3.3 GM/DL (3.2-4.5); ALKALINE PHOSPHATASE 74 U/L (40-136); BILIRUBIN,TOTAL 0.5 MG/DL (0.1-1.0); BUN/CREATININE RATIO 21; CALCIUM 9.3 MG/DL (8.5-10.1); CARBON DIOXIDE 24 MMOL/L (21-32); CHLORIDE 104 MMOL/L (98-107); CREATININE SERUM 0.66 MG/DL (0.60-1.30); GFR ESTIMATED > 60; GLUCOSE 203 MG/DL (70-105); POTASSIUM 4.3 MMOL/L (3.6-5.0); SODIUM 138 MMOL/L (135-145); TOTAL PROTEIN 5.8 GM/DL (6.4-8.2)
--- NOTE | 2019-01-07 06:40 | NUR ---
dressing change done.
[2019-01-07] MEDS: inSUlin ASPART (NovoLOG) 1 UNIT/0.01 ML (CHARGE PER UNIT) SC SCH ×8 (06:52→22:35)
[2019-01-07 08:00] VITALS: BP 163/78
[2019-01-07] MEDS: meTOprolol TARTRATE 50 MG (LOPRESSOR) TAB PO SCH ×2 (08:28→21:22)
[2019-01-07] MEDS: ASPIRIN E.C. 81 MG (ECOTRIN) TAB PO SCH (08:28)
[2019-01-07] MEDS: DOCUSATE SODIUM 100 MG (COLACE) CAP PO SCH ×2 (08:29→21:22)
[2019-01-07] MEDS: ENALAPRIL 10 MG (VASOTEC) TAB PO SCH ×2 (08:29→21:24)
[2019-01-07] MEDS: GABAPENTIN 300 MG (NEURONTIN) CAP PO SCH ×2 (08:29→21:22)
[2019-01-07] MEDS: amLODIPine 5 MG (NORVASC) TAB PO SCH (08:29)
[2019-01-07] MEDS: SENNA W/DOCUSATE (SENOKOT S) TABLET PO SCH ×2 (08:29→21:22)
[2019-01-07] MEDS: FINASTERIDE (PROSCAR) 5 MG TAB PO SCH (08:29)
[2019-01-07] MEDS: LACTOBACILLUS ACIDOPHILUS (PROBIOTIC) CAPSULE PO SCH ×2 (08:29→21:22)
[2019-01-07] MEDS: ARTIFICAL TEARS 0.4 ML UNIT DOSE (REFRESH PLUS) OU SCH ×2 (08:30→21:24)
[2019-01-07] MEDS: DAKIN'S 1/2 STRENGTH (0.25%) 473 ML BTL TOP SCH (08:34)
[2019-01-07] MEDS: NYSTATIN CREAM (MYCOSTATIN) 30 GM TUBE TP SCH ×3 (08:35→21:25)
--- NOTE | 2019-01-07 11:19 | Progress Note - Surgery ---
Subjective Time Seen by a Provider: 09:37 Subjective/Events-last exam Pt seen and examined, no new complaints. Denies abdominal pain. Review of Systems General: No Chills Cardiovascular: No: Chest Pain, Palpitations Gastrointestinal: No: Nausea, Vomiting Objective Exam Vital Signs Date Time Temp Pulse Resp B/P (MAP) Pulse Ox O2 Delivery O2 Flow Rate FiO2 01/07/19 08:00 97.3 71 20 163/78 (106) 94 Room Air 01/07/19 08:00 Room Air 01/07/19 00:00 98.0 59 20 164/78 (106) 94 Room Air 01/06/19 20:00 Room Air 01/06/19 16:00 98.1 63 20 152/81 (104) 96 Room Air I & O 01/07/19 07:00 Intake Total 3040 ml Output Total 4175 ml Balance -1135 ml Capillary Refill : Less Than 3 SecondsNONE General Appearance: No Apparent Distress, Chronically ill, Obese HEENT: PERRL/EOMI, Moist Mucous Membranes Respiratory: Lungs Clear, No Accessory Muscle Use, No Respiratory Distress Cardiovascular: Regular Rate, Rhythm Gastrointestinal: non tender, soft, other (wound clean right lower abdomen minimal erythema) Skin: Other (right pannus cellulitis with necrosis of SQ tissue and left leg ulcer with redness surrounding) Results Lab Laboratory Tests 01/06/19 13:10: Vancomycin Level Trough 23.0H 01/06/19 16:00: Glucometer 245H 01/06/19 21:21: Glucometer 153H 01/07/19 06:06: White Blood Count 6.9, Red Blood Count 4.11L, Hemoglobin 12.0L, Hematocrit 37L, Mean Corpuscular Volume 91, Mean Corpuscular Hemoglobin 29, Mean Corpuscular Hemoglobin Concent 32, Red Cell Distribution Width 13.6, Platelet Count 353, Mean Platelet Volume 9.6, Neutrophils (%) (Auto) 73, Lymphocytes (%) (Auto) 9L, Monocytes (%) (Auto) 12, Eosinophils (%) (Auto) 5, Basophils (%) (Auto) 0, Neutrophils # (Auto) 5.1, Lymphocytes # (Auto) 0.7L, Monocytes # (Auto) 0.8, Eosinophils # (Auto) 0.3, Basophils # (Auto) 0.0, Sodium Level 138, Potassium Level 4.3, Chloride Level 104, Carbon Dioxide Level 24, Anion Gap 10, Blood Urea Nitrogen 14, Creatinine 0.66, Estimat Glomerular Filtration Rate > 60, BUN/Creatinine Ratio 21, Glucose Level 203H, Calcium Level 9.3, Corrected Calcium 9.9, Total Bilirubin 0.5, Aspartate Amino Transf (AST/SGOT) 25, Alanine Aminotransferase (ALT/SGPT) 28, Alkaline Phosphatase 74, Total Protein 5.8L, Albumin 3.3 01/07/19 06:15: Glucometer 220H Microbiology 01/03/19 Blood Culture - Preliminary, Resulted No growth 01/03/19 Gram Stain - Final, Resulted 01/03/19 Anaerobic Culture - Preliminary, Resulted No anaerobes isolated 01/03/19 Surgical Culture - Final, Resulted Staphylococcus aureus Assessment/Plan Assessment/Plan Assessment/Plan S/P I&D right lower abdominal wound Irrigate and pack with kerlex/dakins .25% daily Continue with medical management. Clinical Quality Measures DVT/VTE Risk/Contraindication: Risk Factor Score Per Nursin RFS Level Per Nursing on Admit: 4+=Very High SOLO KEEN DO Jan 07, 2019 11:19
--- NOTE | 2019-01-07 12:34 | Progress Note - Hospitalist ---
Subjective HPI/CC On Admission Date Seen by Provider: Jan 07, 2019 Time Seen by Provider: 11:00 Chief complaint: Pannus cellulitis with necrotic subcutaneous tissue History of present illness: This is a 78-year-old white male [facility] patient at [facility] who has a past medical history of hypertension and diabetes insulin-dependent who is resided in the penitentiary for the past 5 years who has dementia and severe presbycusis who presented to the ER with fever and altered mental status. He had been placed on Cipro and clindamycin for pannus cellulitis but it continued to worsen and he was found to have elevated lactic acid of 3.2 requiring IV fluids and broad-spectrum antibiotics of Zosyn and vancomycin. Wound care Dr. Anderson assessed the patient and found to have necrotic subcutaneous tissue and Dr. Childs was consulted who will evaluate for debridement. Patient denies any pain but he reports that he never has any pain anywhere ever. His white count was normal at 10,000 and his repeat lactic acid was down to 2 after gentle IV fluids given. Subjective/Events-last exam Patient doing much better Appreciate Dr. Roldan checking on the wound Maintain on antibiotic Vanc for MRSA Discharge back to the penitentiary on Wednesday Review of Systems General: Fatigue Objective Exam Vital Signs Vital Signs Date Time Temp Pulse Resp B/P (MAP) Pulse Ox O2 Delivery O2 Flow Rate FiO2 01/07/19 08:00 97.3 71 20 163/78 (106) 94 Room Air 01/03/19 23:00 3 Capillary Refill : Less Than 3 SecondsNONE General Appearance: No Apparent Distress, Chronically ill, Obese HEENT: PERRL/EOMI, Moist Mucous Membranes Respiratory: Lungs Clear, No Accessory Muscle Use, No Respiratory Distress Cardiovascular: Regular Rate, Rhythm Gastrointestinal: Normal Bowel Sounds, No Organomegaly, No Pulsatile Mass, Non Tender, Soft Back: Normal Inspection, No CVA Tenderness, No Vertebral Tenderness Skin: Other (right pannus cellulitis with necrosis of SQ tissue and left leg ulcer with redness surrounding) Results/Procedures Lab Laboratory Tests 01/07/19 06:06 Patient resulted labs reviewed. Assessment/Plan Assessment and Plan Assess & Plan/Chief Complaint Assessment: Pannus cellulitis with necrotic subcutaneous tissue s/p debridement by general surgery Dr. Childs POD # 4 MRSA on Cx Sepsis s/p IVF Diabetes mellitus high risk for necrotizing fasciitis Left leg ulcer with surrounding cellulitis Diabetes mellitus insulin-dependent Hypertension Obesity Dementia Presbycusis Elevated lactic acid s/p IVF Plan: Appreciate Dr. Childs and Dr. Anderson consultation Vancomycin only Debridement per general surgery Home meds including insulin Pain medication IV fluids heplocked Monitor closely PT/OT Diagnosis/Problems Diagnosis/Problems (1) MRSA (methicillin resistant staph aureus) culture positive Status: Acute (2) Abscess Status: Acute (3) Sepsis Status: Acute Qualifiers: Sepsis type: sepsis due to unspecified organism Qualified Codes: A41.9 - Sepsis, unspecified organism (4) Abdominal pannus Status: Chronic (5) Dementia Status: Chronic Qualifiers: Dementia type: Alzheimer's disease (6) Presbycusis of both ears Status: Chronic (7) Debility Status: Chronic (8) Lactic acidemia Status: Acute (9) Cellulitis Status: Acute Qualifiers: Site of cellulitis: trunk Site of cellulitis of trunk: abdominal wall Qualified Codes: L03.311 - Cellulitis of abdominal wall (10) Cellulitis of left lower extremity Status: Acute (11) Pedal edema Status: Acute Clinical Quality Measures DVT/VTE Risk/Contraindication: Risk Factor Score Per Nursin RFS Level Per Nursing on Admit: 4+=Very High MINNIE SANDERS DO Jan 07, 2019 12:34
--- NOTE | 2019-01-07 14:37 | Physical Therapy Daily Note ---
PT Daily Note-Current Subjective Pt agreeable. Pt says he "always hurts". Pt did not rate pain despite this COIL REPAIR TECHNICIAN asking pt several times. Pt states "I got up good yesterday. I don't know why I can't today." Mental Status Patient Orientation: Person, Place, Situation Transfers Therapy Code Descriptions/Definitions Functional [place] Measure: 0=Not Assessed/NA 4=Minimal Assistance 1=Total Assistance 5=Supervision or Setup 2=Maximal Assistance 6=Modified [place] 3=Moderate Assistance 7=Complete [place] Therapy Quality Codes: 6 Independent with activity with or without an assistive device 5 Patient requires set up or clean up by helper. Patient completes activity by themselves 4 Supervision or touching assist (CGA). [place] provide cues , steadying assist 3 The helper provides less than half the effort to complete the activity 2 The helper provides more than half the effort to complete the activity 1 Dependent. The helper does all the effort to complete an activity 7 Patient refused to complete or attempt activity 9 The patient did not perform the activity before the current illness or injury 88 Not attempted due to Medical conditions or safety concerns Treatments Required mod A transfers: Pt able to move feet toward EOB, required assist to get feet to EOB rest of way and to scoot pt with assist of bed pad to EOB. Pt practiced standing up from elevated bed. Pt unable to assume full upright posture, Pt flexed at hips and knees when standing at bedside. Practiced standing at bedside with FWW and bracing of FWW for pt to use as leverage to stand. Pt stood 7x 30sec-2min each bout. Pt unable to side step up toward HOB, bed had to be rolled down as pt stood in place for pt to be in proper position on bed. Mod A sit->supine transfer. Assessment Current Status: Poor Progress Pt dependent with bed mobility and unable to take steps today. Pt was able to stand but with forward flexed posture. Pt resting with call light and all needs met post therapy. PT Short Term Goals Short Term Goals Time Frame: Jan 11, 2019 Gait (FIM): 1 Gait Distance Comment: 10' Gait Level of Assist: 4 Gait Assistive Device: FWW PT Plan Treatment/Plan Treatment Plan: Continue Plan of Care Treatment Plan: Bed Mobility, Concurrent Therapy, Education, Functional Activity Los, Functional Strength, Gait, Safety, Therapeutic Exercise, Transfers Treatment Duration: Jan 11, 2019 Frequency: 6 times per week Estimated Hrs Per Day: .25 hour per day Patient and/or Family Agrees t: Yes Time/GCodes Time In: 1205 Time Out: 1240 Total Billed Treatment Time: 35 Total Billed Treatment 1, FA 35min SYLVIE BAUTISTA CPTA Jan 07, 2019 14:37
[2019-01-07] MEDS: ATORVASTATIN 10 MG (LIPITOR) TABLET PO SCH (14:47)
[2019-01-07 15:32] VITALS: BP 171/77
[2019-01-07] MEDS: TAMSULOSIN 0.4 MG (FLOMAX) CAP PO SCH (16:20)
[2019-01-07] MEDS: HYDROcodone/APAP 5 MG/325 MG (LORTAB) TAB PO PRN (21:24)
[2019-01-08] VITALS: BP 171/71
[2019-01-08] MEDS: VANCOMYCIN 1500 MG/NS 500 ML IVPB IV SCH ×4 (01:56→14:06)
[2019-01-08 05:48] LABS: BASOPHILS % (AUTO) 0 % (0-10); EOSINOPHILS # (AUTO) 0.3 10^3/uL (0.0-0.3); EOSINOPHILS % (AUTO) 5 % (0-10); HEMATOCRIT 37 % (40-54); LYMPHOCYTES # (AUTO) 0.6 X 10^3 (1.0-4.0); LYMPHOCYTES % (AUTO) 10 % (12-44); MEAN CORPUSCULAR HEMOGLOBIN 29 PG (25-34); MEAN CORPUSCULAR HGB CONC 32 G/DL (32-36); MEAN CORPUSCULAR VOLUME 90 FL (80-99); MEAN PLATELET VOLUME 9.6 FL (7.4-10.4); MONOCYTES % (AUTO) 16 % (0-12); NEUTROPHILS # (AUTO) 4.3 X 10^3 (1.8-7.8); NEUTROPHILS % (AUTO) 69 % (42-75); PLATELET COUNT 346 10^3/uL (130-400); RED CELL DISTRIBUTION WIDTH 13.5 % (10.0-14.5); WHITE BLOOD COUNT 6.3 10^3/uL (4.3-11.0)
[2019-01-08 05:59] LABS: ALANINE AMINOTRANSFERASE 33 U/L (0-55); ALBUMIN 3.2 GM/DL (3.2-4.5); ALKALINE PHOSPHATASE 69 U/L (40-136); BILIRUBIN,TOTAL 0.4 MG/DL (0.1-1.0); BUN/CREATININE RATIO 24; CALCIUM 9.2 MG/DL (8.5-10.1); CARBON DIOXIDE 25 MMOL/L (21-32); CHLORIDE 104 MMOL/L (98-107); CREATININE SERUM 0.66 MG/DL (0.60-1.30); GFR ESTIMATED > 60; GLUCOSE 141 MG/DL (70-105); SODIUM 137 MMOL/L (135-145); TOTAL PROTEIN 5.8 GM/DL (6.4-8.2)
[2019-01-08] MEDS: inSUlin ASPART (NovoLOG) 1 UNIT/0.01 ML (CHARGE PER UNIT) SC SCH ×7 (06:46→21:35)
[2019-01-08] MEDS: DAKIN'S 1/2 STRENGTH (0.25%) 473 ML BTL TOP SCH (07:47)
[2019-01-08 08:00] VITALS: BP 178/79
[2019-01-08] MEDS: meTOprolol TARTRATE 50 MG (LOPRESSOR) TAB PO SCH ×2 (08:03→21:36)
[2019-01-08] MEDS: amLODIPine 5 MG (NORVASC) TAB PO SCH (08:03)
[2019-01-08] MEDS: SENNA W/DOCUSATE (SENOKOT S) TABLET PO SCH ×2 (08:03→21:36)
[2019-01-08] MEDS: ENALAPRIL 10 MG (VASOTEC) TAB PO SCH ×2 (08:03→21:36)
[2019-01-08] MEDS: FINASTERIDE (PROSCAR) 5 MG TAB PO SCH (08:03)
[2019-01-08] MEDS: DOCUSATE SODIUM 100 MG (COLACE) CAP PO SCH ×2 (08:03→21:36)
[2019-01-08] MEDS: ARTIFICAL TEARS 0.4 ML UNIT DOSE (REFRESH PLUS) OU SCH ×2 (08:03→21:37)
[2019-01-08] MEDS: LACTOBACILLUS ACIDOPHILUS (PROBIOTIC) CAPSULE PO SCH ×2 (08:03→21:36)
[2019-01-08] MEDS: GABAPENTIN 300 MG (NEURONTIN) CAP PO SCH ×2 (08:03→21:36)
[2019-01-08] MEDS: ASPIRIN E.C. 81 MG (ECOTRIN) TAB PO SCH (08:03)
[2019-01-08] MEDS: NYSTATIN CREAM (MYCOSTATIN) 30 GM TUBE TP SCH ×3 (08:04→21:38)
--- NOTE | 2019-01-08 11:16 | Progress Note - Hospitalist ---
Subjective HPI/CC On Admission Date Seen by Provider: Jan 08, 2019 Time Seen by Provider: 11:45 Chief complaint: Pannus cellulitis with necrotic subcutaneous tissue History of present illness: This is a 78-year-old white male fdc patient at [facility] who has a past medical history of hypertension and diabetes insulin-dependent who is resided in the fdc for the past 5 years who has dementia and severe presbycusis who presented to the ER with fever and altered mental status. He had been placed on Cipro and clindamycin for pannus cellulitis but it continued to worsen and he was found to have elevated lactic acid of 3.2 requiring IV fluids and broad-spectrum antibiotics of Zosyn and vancomycin. Wound care Dr. Anderson assessed the patient and found to have necrotic subcutaneous tissue and Dr. Childs was consulted who will evaluate for debridement. Patient denies any pain but he reports that he never has any pain anywhere ever. His white count was normal at 10,000 and his repeat lactic acid was down to 2 after gentle IV fluids given. Subjective/Events-last exam Doing much better Patient overall tolerating antibiotics of vancomycin for MRSA cellulitis with abscess Denies any pain Gets up in a chair most the time Eating and drinking well Bowels are moving Labs reviewed Review of Systems General: Fatigue Objective Exam Vital Signs Vital Signs Date Time Temp Pulse Resp B/P (MAP) Pulse Ox O2 Delivery O2 Flow Rate FiO2 01/08/19 08:00 Room Air 01/08/19 08:00 97.4 72 20 178/79 (112) 95 01/03/19 23:00 3 Capillary Refill : Less Than 3 SecondsNONE General Appearance: No Apparent Distress, Chronically ill, Obese HEENT: PERRL/EOMI, Moist Mucous Membranes Respiratory: Lungs Clear, No Accessory Muscle Use, No Respiratory Distress Cardiovascular: Regular Rate, Rhythm Gastrointestinal: Normal Bowel Sounds, No Organomegaly, No Pulsatile Mass, Non Tender, Soft Back: Normal Inspection, No CVA Tenderness, No Vertebral Tenderness Skin: Other (right pannus cellulitis with necrosis of SQ tissue and left leg ulcer with redness surrounding) Results/Procedures Lab Laboratory Tests 01/08/19 05:05 Patient resulted labs reviewed. Assessment/Plan Assessment and Plan Assess & Plan/Chief Complaint Assessment: Pannus cellulitis with necrotic subcutaneous tissue s/p debridement by general surgery Dr. Childs POD # 5 MRSA on Cx Sepsis s/p IVF Diabetes mellitus high risk for necrotizing fasciitis Left leg ulcer with surrounding cellulitis Diabetes mellitus insulin-dependent Hypertension Obesity Dementia Presbycusis Elevated lactic acid s/p IVF Plan: Appreciate Dr. Childs and Dr. Anderson consultation Vancomycin only Debridement per general surgery Home meds including insulin Pain medication IV fluids heplocked Monitor closely PT/OT DC to NH tomorrow Diagnosis/Problems Diagnosis/Problems (1) MRSA (methicillin resistant staph aureus) culture positive Status: Acute (2) Abscess Status: Acute (3) Sepsis Status: Acute Qualifiers: Sepsis type: sepsis due to unspecified organism Qualified Codes: A41.9 - Sepsis, unspecified organism (4) Abdominal pannus Status: Chronic (5) Dementia Status: Chronic Qualifiers: Dementia type: Alzheimer's disease (6) Presbycusis of both ears Status: Chronic (7) Debility Status: Chronic (8) Lactic acidemia Status: Acute (9) Cellulitis Status: Acute Qualifiers: Site of cellulitis: trunk Site of cellulitis of trunk: abdominal wall Qualified Codes: L03.311 - Cellulitis of abdominal wall (10) Cellulitis of left lower extremity Status: Acute (11) Pedal edema Status: Acute Clinical Quality Measures DVT/VTE Risk/Contraindication: Risk Factor Score Per Nursin RFS Level Per Nursing on Admit: 4+=Very High MINNIE SANDERS DO Jan 08, 2019 11:16
[2019-01-08] MEDS: ATORVASTATIN 10 MG (LIPITOR) TABLET PO SCH (14:06)
[2019-01-08 15:40] VITALS: BP 147/67
[2019-01-08] MEDS: TAMSULOSIN 0.4 MG (FLOMAX) CAP PO SCH (16:44)
[2019-01-08] MEDS: HYDROcodone/APAP 5 MG/325 MG (LORTAB) TAB PO PRN (21:37)
[2019-01-09] VITALS: BP 144/64
[2019-01-09 01:03] VITALS: BP 144/64
[2019-01-09] MEDS: VANCOMYCIN 1500 MG/NS 500 ML IVPB IV SCH ×2 (02:09)
[2019-01-09 05:21] LABS: BASOPHILS % (AUTO) 1 % (0-10); EOSINOPHILS # (AUTO) 0.3 10^3/uL (0.0-0.3); EOSINOPHILS % (AUTO) 5 % (0-10); HEMATOCRIT 37 % (40-54); LYMPHOCYTES # (AUTO) 0.8 X 10^3 (1.0-4.0); LYMPHOCYTES % (AUTO) 13 % (12-44); MEAN CORPUSCULAR HEMOGLOBIN 29 PG (25-34); MEAN CORPUSCULAR HGB CONC 32 G/DL (32-36); MEAN CORPUSCULAR VOLUME 90 FL (80-99); MEAN PLATELET VOLUME 9.4 FL (7.4-10.4); MONOCYTES # (AUTO) 0.8 X 10^3 (0.0-1.0); MONOCYTES % (AUTO) 15 % (0-12); NEUTROPHILS # (AUTO) 3.8 X 10^3 (1.8-7.8); NEUTROPHILS % (AUTO) 66 % (42-75); PLATELET COUNT 372 10^3/uL (130-400); RED CELL DISTRIBUTION WIDTH 13.8 % (10.0-14.5); WHITE BLOOD COUNT 5.7 10^3/uL (4.3-11.0)
[2019-01-09 05:42] LABS: ALANINE AMINOTRANSFERASE 39 U/L (0-55); ALBUMIN 3.2 GM/DL (3.2-4.5); ALKALINE PHOSPHATASE 70 U/L (40-136); BILIRUBIN,TOTAL 0.4 MG/DL (0.1-1.0); BUN/CREATININE RATIO 24; CARBON DIOXIDE 24 MMOL/L (21-32); CHLORIDE 105 MMOL/L (98-107); GFR ESTIMATED > 60; GLUCOSE 158 MG/DL (70-105); POTASSIUM 4.1 MMOL/L (3.6-5.0); SODIUM 139 MMOL/L (135-145); TOTAL PROTEIN 5.5 GM/DL (6.4-8.2)
[2019-01-09] MEDS: inSUlin ASPART (NovoLOG) 1 UNIT/0.01 ML (CHARGE PER UNIT) SC SCH ×3 (06:00→14:14)
[2019-01-09 08:00] VITALS: BP 159/69
[2019-01-09] MEDS: FINASTERIDE (PROSCAR) 5 MG TAB PO SCH (09:39)
[2019-01-09] MEDS: LACTOBACILLUS ACIDOPHILUS (PROBIOTIC) CAPSULE PO SCH (09:39)
[2019-01-09] MEDS: SENNA W/DOCUSATE (SENOKOT S) TABLET PO SCH (09:39)
[2019-01-09] MEDS: GABAPENTIN 300 MG (NEURONTIN) CAP PO SCH (09:39)
[2019-01-09] MEDS: HYDROcodone/APAP 5 MG/325 MG (LORTAB) TAB PO PRN ×2 (09:40→14:10)
[2019-01-09] MEDS: amLODIPine 5 MG (NORVASC) TAB PO SCH (09:41)
[2019-01-09] MEDS: DAKIN'S 1/2 STRENGTH (0.25%) 473 ML BTL TOP SCH (09:42)
[2019-01-09] MEDS: DOCUSATE SODIUM 100 MG (COLACE) CAP PO SCH (09:42)
[2019-01-09] MEDS: ENALAPRIL 10 MG (VASOTEC) TAB PO SCH (09:42)
[2019-01-09] MEDS: ASPIRIN E.C. 81 MG (ECOTRIN) TAB PO SCH (09:42)
[2019-01-09] MEDS: meTOprolol TARTRATE 50 MG (LOPRESSOR) TAB PO SCH (09:42)
[2019-01-09] MEDS: ARTIFICAL TEARS 0.4 ML UNIT DOSE (REFRESH PLUS) OU SCH (09:42)
[2019-01-09] MEDS: NYSTATIN CREAM (MYCOSTATIN) 30 GM TUBE TP SCH (09:43)
[2019-01-09] MEDS ORDERED: DOXY100T2 PO (11:49)
--- NOTE | 2019-01-09 11:51 | Discharge Instructions ---
Discharge [facility] Discharge Medications New, Converted or Re-Newed RX: Transmitted to Pharmacy New Medications: Doxycycline Hyclate (Doxycycline Hyclate) 100 Mg Tablet 100 MG PO BID, #10 TAB 0 Refills Continued Medications: Acetaminophen (Tylenol) 325 Mg Tablet 650 MG PO Q4H PRN for PAIN-MILD, TAB TAKES 2 (325MG) TABLETS Acetaminophen (Tylenol) 325 Mg Tablet 650 MG PO DAILY, TAB Amlodipine Besylate (Amlodipine Besylate) 5 Mg Tablet 5 MG PO DAILY, TAB HOLD IF SBP<90, PULSE <60 Aspirin (Aspirin EC) 81 Mg Tablet.dr 81 MG PO DAILY, TAB Atorvastatin Calcium (Atorvastatin Calcium) 10 Mg Tablet 10 MG PO 1500, TAB Benzocaine/Menthol (Cepacol Sore Throat Lozenge) 1 Each Lozenge 1 ANNIE MM UD PRN for COUGH, LOZENGE D-Methorphan/Acetamin/Doxylamn (Vicks Nyquil Cold & Flu Liquid) 236 Ml Liquid 30 ML PO DAILY PRN for COUGH, EA Dextran 70/Hypromellose (Natural Balance Tears Eye Drop) 15 Ml Drops 1 DROP OU BID, DROPS Docusate Sodium (Colace) 100 Mg Capsule 100 MG PO BID, CAP Enalapril Maleate (Enalapril Maleate) 10 Mg Tablet 10 MG PO BID, TAB HOLD IF SBP <90 PULSE <60 Finasteride (Finasteride) 5 Mg Tablet 5 MG PO DAILY, TAB Furosemide (Furosemide) 20 Mg Tablet 20 MG PO DAILY, TAB Gabapentin (Gabapentin) 300 Mg Capsule 300 MG PO BID, CAP Insulin Detemir (Levemir Flextouch) 100 Unit/1 Ml Insuln.pen 33 UNITS SC BID, EA Insulin Lispro (Humalog) 100 Unit/1 Ml Vial 22 UNITS SC TID, EA Lactobacillus Acidophilus (Probiotic) 1 Each Capsule 1 CAP PO BID, CAP Loperamide HCl (Loperamide) 2 Mg Capsule PO UD PRN for LOOSE STOOLS, CAP TAKE 2 CAPSULES AFTER FIRST LOOSE STOOL THEN TAKE 1 CAPSULE AFTER EACH SUBSEUENT LOOSE STOOL. MAX 4 CAPS IN 24 HOURS Magnesium Hydroxide (Milk of Magnesia) 400 Mg/5 Ml Oral.susp 30 ML PO DAILY PRN for CONSTIPATION-7TH LINE, ML Menthol (Biofreeze) 118 Ml Gel..ml. TP Q6H PRN for SHOULDER PAIN, TUBE Metformin HCl (Metformin HCl) 1,000 Mg Tablet 1000 MG PO BID, TAB Metoprolol Tartrate (Metoprolol Tartrate) 50 Mg Tablet 50 MG PO BID, TAB Mirabegron (Myrbetriq) 50 Mg Tab.er.24h 50 MG PO DAILY, TAB Phenyleph/Pramoxin/Glycr/W.pet (Hemorrhoidal Cream) 51 Gm Cream..g. RC Q6H PRN for HEMORRHOIDS, TUBE Polyethylene Glycol 3350 (Miralax) 17 Gm Powd.pack 17 GM PO Q12H PRN for CONSTIPATION-2ND LINE, EACH Propylene Glycol/Peg 400 (Systane 0.3-0.4% Eye Drops) 15 Ml Drops 1 DROP OU Q4H PRN for DRY EYES, DROPS Tamsulosin HCl (Flomax) 0.4 Mg Cap 0.4 MG PO 1729, CAP Zinc Oxide (Boudreauxs) 28 Gm Oint TP Q8H PRN for RASH/REDNESS IN ABDOMINAL FOLD, TUBE Discontinued Medications: Ciprofloxacin HCl (Cipro) 500 Mg Tablet 500 MG PO BID for 10 Days, TAB 10 DAY SUPPLY START DATE 01-02-19 END DATE 01-12-19 Clindamycin HCl (Clindamycin HCl) 300 Mg Capsule 300 MG PO QID for 10 Days, CAP START DATE 01-02-19 END DATE 01-12-19 Patient Instructions Patient Instructions: Irrigate and pack wound with kerlix/Dakin's daily Return to The Hospital For: Fever, uncontrolled pain, inability to keep down medications Activity & Diet Discharge Diet: ADA PATRICK Prakash MD Jan 09, 2019 11:51
--- NOTE | 2019-01-09 13:20 | Discharge Inst-Skilled Nursing ---
Discharge Inst-Skilled NF Patient Instructions Patient Problems: Cellulitis s/p abscess drainage Patient Instructions: Irrigate and pack wound daily with Dakins/kerlix. Consult/Follow Up/Orders Skilled NF Admit to: [facility] Certifications SNF I certify that SNF services are required to be given on an inpatient basis because of the above named patient's need for residential care on a continuing basis for the conditions(s) for which he/she was receiving inpatient hospital services prior to his/her transfer to the SNF. [facility] Facility Order: Nursing Services, Cart Attendant-Evaluate & Treat, Physical Therapy-Evaluate & Treat Oxygen Delivery Method: Room Air Discharge Diet: ADA Diet Daily Activity as Tolerated: Yes Discharge Medications New, Converted or Re-Newed RX: Transmitted to Pharmacy New Medications: Doxycycline Hyclate (Doxycycline Hyclate) 100 Mg Tablet 100 MG PO BID, #10 TAB 0 Refills Continued Medications: Acetaminophen (Tylenol) 325 Mg Tablet 650 MG PO Q4H PRN for PAIN-MILD, TAB (This prescription has been renewed) TAKES 2 (325MG) TABLETS Acetaminophen (Tylenol) 325 Mg Tablet 650 MG PO DAILY, TAB (This prescription has been renewed) Amlodipine Besylate (Amlodipine Besylate) 5 Mg Tablet 5 MG PO DAILY, TAB (This prescription has been renewed) HOLD IF SBP<90, PULSE <60 Aspirin (Aspirin EC) 81 Mg Tablet.dr 81 MG PO DAILY, TAB (This prescription has been renewed) Atorvastatin Calcium (Atorvastatin Calcium) 10 Mg Tablet 10 MG PO 1500, TAB (This prescription has been renewed) Benzocaine/Menthol (Cepacol Sore Throat Lozenge) 1 Each Lozenge 1 ANNIE MM UD PRN for COUGH, LOZENGE (This prescription has been renewed) D-Methorphan/Acetamin/Doxylamn (Vicks Nyquil Cold & Flu Liquid) 236 Ml Liquid 30 ML PO DAILY PRN for COUGH, EA (This prescription has been renewed) Dextran 70/Hypromellose (Natural Balance Tears Eye Drop) 15 Ml Drops 1 DROP OU BID, DROPS (This prescription has been renewed) Docusate Sodium (Colace) 100 Mg Capsule 100 MG PO BID, CAP (This prescription has been renewed) Enalapril Maleate (Enalapril Maleate) 10 Mg Tablet 10 MG PO BID, TAB (This prescription has been renewed) HOLD IF SBP <90 PULSE <60 Finasteride (Finasteride) 5 Mg Tablet 5 MG PO DAILY, TAB (This prescription has been renewed) Furosemide (Furosemide) 20 Mg Tablet 20 MG PO DAILY, TAB (This prescription has been renewed) Gabapentin (Gabapentin) 300 Mg Capsule 300 MG PO BID, CAP (This prescription has been renewed) Insulin Detemir (Levemir Flextouch) 100 Unit/1 Ml Insuln.pen 33 UNITS SC BID, EA (This prescription has been renewed) Insulin Lispro (Humalog) 100 Unit/1 Ml Vial 22 UNITS SC TID, EA (This prescription has been renewed) Lactobacillus Acidophilus (Probiotic) 1 Each Capsule 1 CAP PO BID, CAP (This prescription has been renewed) Loperamide HCl (Loperamide) 2 Mg Capsule PO UD PRN for LOOSE STOOLS, CAP (This prescription has been renewed) TAKE 2 CAPSULES AFTER FIRST LOOSE STOOL THEN TAKE 1 CAPSULE AFTER EACH SUBSEUENT LOOSE STOOL. MAX 4 CAPS IN 24 HOURS Magnesium Hydroxide (Milk of Magnesia) 400 Mg/5 Ml Oral.susp 30 ML PO DAILY PRN for CONSTIPATION-7TH LINE, ML (This prescription has been renewed) Menthol (Biofreeze) 118 Ml Gel..ml. TP Q6H PRN for SHOULDER PAIN, TUBE (This prescription has been renewed) Metformin HCl (Metformin HCl) 1,000 Mg Tablet 1000 MG PO BID, TAB (This prescription has been renewed) Metoprolol Tartrate (Metoprolol Tartrate) 50 Mg Tablet 50 MG PO BID, TAB (This prescription has been renewed) Mirabegron (Myrbetriq) 50 Mg Tab.er.24h 50 MG PO DAILY, TAB (This prescription has been renewed) Phenyleph/Pramoxin/Glycr/W.pet (Hemorrhoidal Cream) 51 Gm Cream..g. RC Q6H PRN for HEMORRHOIDS, TUBE (This prescription has been renewed) Polyethylene Glycol 3350 (Miralax) 17 Gm Powd.pack 17 GM PO Q12H PRN for CONSTIPATION-2ND LINE, EACH (This prescription has been renewed) Propylene Glycol/Peg 400 (Systane 0.3-0.4% Eye Drops) 15 Ml Drops 1 DROP OU Q4H PRN for DRY EYES, DROPS (This prescription has been renewed) Tamsulosin HCl (Flomax) 0.4 Mg Cap 0.4 MG PO 1730, CAP (This prescription has been renewed) Zinc Oxide (Boudreauxs) 28 Gm Oint TP Q8H PRN for RASH/REDNESS IN ABDOMINAL FOLD, TUBE (This prescription has been renewed) Discontinued Medications: Ciprofloxacin HCl (Cipro) 500 Mg Tablet 500 MG PO BID for 10 Days, TAB 10 DAY SUPPLY START DATE 01-02-19 END DATE 01-12-19 Clindamycin HCl (Clindamycin HCl) 300 Mg Capsule 300 MG PO QID for 10 Days, CAP START DATE 01-02-19 END DATE 01-12-19 Patrick Torres Jan 09, 2019 13:19 PATRICK TORRES MD Jan 09, 2019 13:20
--- NOTE | 2019-01-09 13:21 | Discharge Summary ---
Diagnosis/Chief Complaint Date of Admission Jan 03, 2019 at 12:10 Date of Discharge Jan 09, 2019 Admission Diagnosis Admission Diagnosis Pannus cellulitis with necrotic subcutaneous tissue in need of debridement by general surgery Dr. Childs Sepsis Diabetes mellitus high risk for necrotizing fasciitis Left leg ulcer with surrounding cellulitis Diabetes mellitus insulin-dependent Hypertension Obesity Dementia Presbycusis Elevated lactic acid Discharge Diagnosis Pannus cellulitis- debrided by General Surgery, Dr. Anderson consultation, Dakin's irrigation and kerlix daily on d/c. Doxycycline to complete abx course. DMII- Home meds resumed Pain medication- given script for hydrocodone 5/325 fifteen tabs on d/c to use before therapy/dressing changes Sepsis - resolved, completing doxycycline Left leg ulcer with surrounding cellulitis- improving with abx Hypertension- resumed home meds Dementia- returned to nursing facility at d/c Elevated lactic acid- resolved Chief Complaint/HPI Chief Complaint/HPI From Dr. Foley's H&P- This is a 78-year-old white [facility] who has a past medical history of hypertension and diabetes insulin-dependent who is resided in the snf for the past 5 years who has dementia and severe presbycusis who presented to the ER with fever and altered mental status. He had been placed on Cipro and clindamycin for pannus cellulitis but it continued to worsen and he was found to have elevated lactic acid of 3.2 requiring IV fluids and broad-spectrum antibiotics of Zosyn and vancomycin. Wound care Dr. Anderson assessed the patient and found to have necrotic subcutaneous tissue and Dr. Childs was consulted who will evaluate for debridement. Patient denies any pain but he reports that he never has any pain anywhere ever. His white count was normal at 10,000 and his repeat lactic acid was down to 2 after gentle IV fluids given. Discharge Summary-Simple/Stand Procedures Debridement of abdominal cellulitis/abscess Consultations Discharge Physical Examination Allergies: Coded Allergies: No Known Drug Allergies (Unverified , 01/03/19) Vitals & I&Os Vital Sign - Last 12Hours Date Time Temp Pulse Resp B/P (MAP) Pulse Ox O2 Delivery O2 Flow Rate FiO2 01/09/19 08:00 98.6 65 20 159/69 (99) 94 Room Air 01/08/19 20:00 0.00 Intake and Output 01/09/19 00:00 Intake Total 2335 ml Output Total 2200 ml Balance 135 ml General Appearance: Alert, No Acute Distress Respiratory: Clear to Auscultation, Normal Air Movement Cardiovascular: Regular Rate, No Murmurs Neuro: Normal Speech Psych/Mental Status: Mood NL Hospital Course Was the Problem List Reviewed?: Yes See final discharge diagnosis. Labs Laboratory Tests Test 01/07/19 15:36 01/07/19 21:13 01/08/19 05:05 01/08/19 06:03 Range/Units Glucometer 201 H 141 H 165 H 70-110 MG/DL White Blood Count 6.3 4.3-11.0 10^3/uL Red Blood Count 4.16 L 4.35-5.85 10^6/uL Hemoglobin 12.0 L 13.3-17.7 G/DL Hematocrit 37 L 40-54 % Mean Corpuscular Volume 90 80-99 FL Mean Corpuscular Hemoglobin 29 25-34 PG Mean Corpuscular Hemoglobin Concent 32 32-36 G/DL Red Cell Distribution Width 13.5 10.0-14.5 % Platelet Count 346 130-400 10^3/uL Mean Platelet Volume 9.6 7.4-10.4 FL Neutrophils (%) (Auto) 69 42-75 % Lymphocytes (%) (Auto) 10 L 12-44 % Monocytes (%) (Auto) 16 H 0-12 % Eosinophils (%) (Auto) 5 0-10 % Basophils (%) (Auto) 0 0-10 % Neutrophils # (Auto) 4.3 1.8-7.8 X 10^3 Lymphocytes # (Auto) 0.6 L 1.0-4.0 X 10^3 Monocytes # (Auto) 1.0 0.0-1.0 X 10^3 Eosinophils # (Auto) 0.3 0.0-0.3 10^3/uL Basophils # (Auto) 0.0 0.0-0.1 10^3/uL Sodium Level 137 135-145 MMOL/L Potassium Level 4.0 3.6-5.0 MMOL/L Chloride Level 104 98-107 MMOL/L Carbon Dioxide Level 25 21-32 MMOL/L Anion Gap 8 5-14 MMOL/L Blood Urea Nitrogen 16 7-18 MG/DL Creatinine 0.66 0.60-1.30 MG/DL Estimat Glomerular Filtration Rate > 60 BUN/Creatinine Ratio 24 Glucose Level 141 H 70-105 MG/DL Calcium Level 9.2 8.5-10.1 MG/DL Corrected Calcium 9.8 8.5-10.1 MG/DL Total Bilirubin 0.4 0.1-1.0 MG/DL Aspartate Amino Transf (AST/SGOT) 25 5-34 U/L Alanine Aminotransferase (ALT/SGPT) 33 0-55 U/L Alkaline Phosphatase 69 40-136 U/L Total Protein 5.8 L 6.4-8.2 GM/DL Albumin 3.2 3.2-4.5 GM/DL Test 01/08/19 11:06 01/08/19 15:45 01/08/19 21:18 01/09/19 04:59 Range/Units Glucometer 145 H 157 H 217 H 70-110 MG/DL White Blood Count 5.7 4.3-11.0 10^3/uL Red Blood Count 4.14 L 4.35-5.85 10^6/uL Hemoglobin 12.0 L 13.3-17.7 G/DL Hematocrit 37 L 40-54 % Mean Corpuscular Volume 90 80-99 FL Mean Corpuscular Hemoglobin 29 25-34 PG Mean Corpuscular Hemoglobin Concent 32 32-36 G/DL Red Cell Distribution Width 13.8 10.0-14.5 % Platelet Count 372 130-400 10^3/uL Mean Platelet Volume 9.4 7.4-10.4 FL Neutrophils (%) (Auto) 66 42-75 % Lymphocytes (%) (Auto) 13 12-44 % Monocytes (%) (Auto) 15 H 0-12 % Eosinophils (%) (Auto) 5 0-10 % Basophils (%) (Auto) 1 0-10 % Neutrophils # (Auto) 3.8 1.8-7.8 X 10^3 Lymphocytes # (Auto) 0.8 L 1.0-4.0 X 10^3 Monocytes # (Auto) 0.8 0.0-1.0 X 10^3 Eosinophils # (Auto) 0.3 0.0-0.3 10^3/uL Basophils # (Auto) 0.0 0.0-0.1 10^3/uL Sodium Level 139 135-145 MMOL/L Potassium Level 4.1 3.6-5.0 MMOL/L Chloride Level 105 98-107 MMOL/L Carbon Dioxide Level 24 21-32 MMOL/L Anion Gap 10 5-14 MMOL/L Blood Urea Nitrogen 17 7-18 MG/DL Creatinine 0.70 0.60-1.30 MG/DL Estimat Glomerular Filtration Rate > 60 BUN/Creatinine Ratio 24 Glucose Level 158 H 70-105 MG/DL Calcium Level 9.0 8.5-10.1 MG/DL Corrected Calcium 9.6 8.5-10.1 MG/DL Total Bilirubin 0.4 0.1-1.0 MG/DL Aspartate Amino Transf (AST/SGOT) 32 5-34 U/L Alanine Aminotransferase (ALT/SGPT) 39 0-55 U/L Alkaline Phosphatase 70 40-136 U/L Total Protein 5.5 L 6.4-8.2 GM/DL Albumin 3.2 3.2-4.5 GM/DL Test 01/09/19 06:12 01/09/19 11:02 Range/Units Glucometer 160 H 162 H 70-110 MG/DL Discharge Condition at discharge To SNF with PT/OT and nursing for wound care Instructions to patient/family Please see electronic discharge instructions given to patient. Discharge Medications Reviewed and agree with Discharge Medication list on patient's Discharge Instruction sheet Clinical Quality Measures DVT/VTE Risk/Contraindication: Risk Factor Score Per Nursin RFS Level Per Nursing on Admit: 4+=Very High Copy Copies To 1: DEAN Cota BETHANY N MD Jan 09, 2019 13:21
--- NOTE | 2019-01-09 13:23 | NUR ---
CM/SS. Patient discharged to return to [facility] skilled status via their transport set up for 1400. Facility understands to bring lift sheet for patient, his wheelchair and clothing are here. Attempted to contact daughter Apolonia Oropeza, no answer and voice mail has not been set up. Faxed orders to OR, prepared packet to accompany patient. Unit RN aware, they will assist patient to get dressed and ready.
[2019-01-09] MEDS ORDERED: ACHD5005 PO (13:41)
[2019-01-09] MEDS ORDERED: NYST15CR TP (13:43)
[2019-01-09 14:24] VITALS: BP 159/69
--- NOTE | 2019-01-09 15:40 | NUR ---
CHARLIE CORONADO demonstrates understanding of discharge instructions and accurately returns instructions upon questioning. Copy of Post-Discharge Instructions given to PT. CHARLIE CORONADO is able to manage continuing needs after discharge. Patients belongings returned to PT. Patient discharged from [facility] on 01/09/19 at 1540. CHARLIE CORONADO left floor via W/C, accompanied by STAFF AND FAMILY PER AUTO.
== END 2019-01-09 14:50 | DRG 854 ==
LOC: ER 11:11 → EDUNIT# 11:11 → 4TH 12:10
PROVIDERS: ADMIT Internal Medicine; ATTEND Family Medicine
PROC: 0J980ZZ Drainage of Abdomen Subcutaneous Tissue and Fascia, Open Approach (ICD-10-PCS; 2019-01-03)
PROC: 0J5 Subcutaneous Tissue and Fascia, Destruction (ICD-10-PCS; principal; 2019-01-03 21:32)
DX: A41.02 Sepsis due to Methicillin resistant Staphylococcus aureus (principal); I96 Gangrene, not elsewhere classified; L03.311 Cellulitis of abdominal wall; L03.116 Cellulitis of left lower limb; L97.929 Non-pressure chronic ulcer of unspecified part of left lower leg with unspecified severity; L89.159 Pressure ulcer of sacral region, unspecified stage; E66.01 Morbid (severe) obesity due to excess calories; Z68.41 Body mass index [BMI] 40.0-44.9, adult; Z66 Do not resuscitate; E11.9 Type 2 diabetes mellitus without complications; Z79.4 Long term (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; F03.90 Unspecified dementia, unspecified severity, without behavioral disturbance, psychotic disturbance, mood disturbance, and anxiety; I10 Essential (primary) hypertension; M21.371 Foot drop, right foot; M21.372 Foot drop, left foot; R60.0 Localized edema; Z99.3 Dependence on wheelchair; H91.13 Presbycusis, bilateral
CPT/HCPCS: 36415; 76937; 80053; 80202; 82962; 83605; 85007; 85025; 85027; 85610; 85730; 87040; 87070; 87075; 87077; 87186; 87205; 88304; 96361; 96365; 96367

== ENCOUNTER → 2019-01-11 | Outpatient (CLI) | payer MEDICAID, MEDICARE, OTHER ==
[~2019-01-11] MED LIST changes: +ACET325T38 PO; +ACHD5005 PO; +AMLO5TAB9 PO; +ASPI-983 PO; +ATOR10TA66 PO; +BENZ1LOZ61 MM; +CIPR-225 PO; +CLIN300C11 PO; +D-ME236L5 PO; +DEXT15DR23 OU; +DOCU-143 PO; +DOXY100T2 PO; +ENAL10TA PO; +FINA5TAB6 PO; +FURO20TA4 PO; +GABA-488 PO; +INSU100I29 SC; +INSU100V SC; +LACT1CAP62 PO; +LOPE2CAP PO; +MAGN400O7 PO; +MENT118G TP; +METF-399 PO; +METO50TA15 PO; +MIRA50TA PO; +NYST15CR TP; +PHEN51CR17 RC; +POLY17PO6 PO; +PROP15DR OU; +TAMS0.4C98 PO; +ZINC28PA TP
== END ==
LOC: WOUNDCARE 08:56
PROVIDERS: ATTEND Surgery
DX: E11.622 Type 2 diabetes mellitus with other skin ulcer (principal); L98.492 Non-pressure chronic ulcer of skin of other sites with fat layer exposed; L89.313 Pressure ulcer of right buttock, stage 3; I96 Gangrene, not elsewhere classified; E66.01 Morbid (severe) obesity due to excess calories; L22 Diaper dermatitis; M72.6 Necrotizing fasciitis; R54 Age-related physical debility
CPT/HCPCS: 11042; 11045

== ENCOUNTER → 2019-01-25 | Outpatient (CLI) | payer OTHER | LOC: WOUNDCARE 09:01 | PROVIDERS: ATTEND Surgery | DX: E11.622 Type 2 diabetes mellitus with other skin ulcer (principal); E11.52 Type 2 diabetes mellitus with diabetic peripheral angiopathy with gangrene; L02.211 Cutaneous abscess of abdominal wall; L98.492 Non-pressure chronic ulcer of skin of other sites with fat layer exposed; I96 Gangrene, not elsewhere classified | CPT/HCPCS: 11042; 11045 ==

== ENCOUNTER → 2019-01-30 | Outpatient (CLI) | payer OTHER | LOC: WOUNDCARE 09:07 | PROVIDERS: ATTEND Surgery | DX: E11.622 Type 2 diabetes mellitus with other skin ulcer (principal); E11.52 Type 2 diabetes mellitus with diabetic peripheral angiopathy with gangrene; L98.492 Non-pressure chronic ulcer of skin of other sites with fat layer exposed; I96 Gangrene, not elsewhere classified; L02.211 Cutaneous abscess of abdominal wall | CPT/HCPCS: 11042 ==

== ENCOUNTER → 2019-02-06 | Outpatient (CLI) | payer OTHER | LOC: WOUNDCARE 08:40 | PROVIDERS: ATTEND Surgery | DX: E11.622 Type 2 diabetes mellitus with other skin ulcer (principal); E11.52 Type 2 diabetes mellitus with diabetic peripheral angiopathy with gangrene; L98.492 Non-pressure chronic ulcer of skin of other sites with fat layer exposed; I96 Gangrene, not elsewhere classified | CPT/HCPCS: 11042 ==

== ENCOUNTER → 2019-02-17 | Outpatient (CLI) | payer OTHER | LOC: WOUNDCARE 09:01 | PROVIDERS: ATTEND Surgery | DX: L98.492 Non-pressure chronic ulcer of skin of other sites with fat layer exposed (principal); L02.211 Cutaneous abscess of abdominal wall; E11.622 Type 2 diabetes mellitus with other skin ulcer; E11.52 Type 2 diabetes mellitus with diabetic peripheral angiopathy with gangrene | CPT/HCPCS: 11042 ==

== ENCOUNTER → 2019-02-24 | Outpatient (CLI) | payer OTHER | LOC: WOUNDCARE 08:42 | PROVIDERS: ATTEND Surgery | DX: E11.622 Type 2 diabetes mellitus with other skin ulcer (principal); E11.52 Type 2 diabetes mellitus with diabetic peripheral angiopathy with gangrene; L98.492 Non-pressure chronic ulcer of skin of other sites with fat layer exposed; L02.211 Cutaneous abscess of abdominal wall; I96 Gangrene, not elsewhere classified | CPT/HCPCS: 11042 ==

== ENCOUNTER → 2019-03-03 | Outpatient (CLI) | payer OTHER | LOC: WOUNDCARE 08:44 | PROVIDERS: ATTEND Surgery | DX: L95.9 Vasculitis limited to the skin, unspecified (principal); L92.8 Other granulomatous disorders of the skin and subcutaneous tissue; L98.492 Non-pressure chronic ulcer of skin of other sites with fat layer exposed; L02.211 Cutaneous abscess of abdominal wall; L97.122 Non-pressure chronic ulcer of left thigh with fat layer exposed; E11.622 Type 2 diabetes mellitus with other skin ulcer; E11.52 Type 2 diabetes mellitus with diabetic peripheral angiopathy with gangrene | CPT/HCPCS: 17250 ==

== ENCOUNTER → 2019-03-07 | Outpatient (CLI) | payer OTHER | LOC: WOUNDCARE 13:07 | PROVIDERS: ATTEND Surgery | DX: E11.622 Type 2 diabetes mellitus with other skin ulcer (principal); E11.52 Type 2 diabetes mellitus with diabetic peripheral angiopathy with gangrene; I96 Gangrene, not elsewhere classified; L89.320 Pressure ulcer of left buttock, unstageable; L98.492 Non-pressure chronic ulcer of skin of other sites with fat layer exposed; E66.01 Morbid (severe) obesity due to excess calories; R68.89 Other general symptoms and signs | CPT/HCPCS: 99214 ==

== ENCOUNTER → 2019-03-13 | Outpatient (CLI) | payer OTHER | LOC: WOUNDCARE 14:36 | PROVIDERS: ATTEND Surgery | DX: L89.323 Pressure ulcer of left buttock, stage 3 (principal); E11.622 Type 2 diabetes mellitus with other skin ulcer; E11.52 Type 2 diabetes mellitus with diabetic peripheral angiopathy with gangrene; E66.01 Morbid (severe) obesity due to excess calories; R68.89 Other general symptoms and signs | CPT/HCPCS: 11042; 11045 ==

== ENCOUNTER 2019-03-14 14:23 | Emergency (ER) | payer MEDICARE, OTHER, MEDICAID ==
[~2019-03-14] VITALS: Ht 187.9 cm; Wt 145.5 kg
--- NOTE | 2019-03-14 15:37 | ED General ---
General Chief Complaint: Skin/Wound Problems Stated Complaint: WOUND Nursing Triage Note: Pt states he had wound on left posterior hip debried yesterday and is black today. Nursing Sepsis Screen: No Definite Risk Source of Information: Patient Exam Limitations: No Limitations History of Present Illness Date Seen by Provider: Mar 14, 2019 Time Seen by Provider: 15:00 Initial Comments This patient was sent to the emergency room by Dr. Mayo and skilled nursing staff due to concern about a wound on his left buttock that was debrided yesterday. T here was concern that the tissue is becoming rapidly and progressively necrotic. Dr. Mayo was concerned it might be necrotizing fasciitis after reviewing a photograph of the wound sent to him by skilled nursing staff.. Patient denies any fevers. Patient is severely debilitated and does not walk or stand independently. Allergies and Home Medications Allergies Coded Allergies: No Known Drug Allergies (Unverified , 01/03/19) Home Medications Acetaminophen 325 Mg Tablet, 650 MG PO Q4H PRN for PAIN-MILD, (Reported) TAKES 2 (325MG) TABLETS Acetaminophen 325 Mg Tablet, 650 MG PO DAILY, (Reported) Amlodipine Besylate 5 Mg Tablet, 5 MG PO DAILY, (Reported) HOLD IF SBP<90, PULSE <60 Aspirin 81 Mg Tablet.dr, 81 MG PO DAILY, (Reported) Atorvastatin Calcium 10 Mg Tablet, 10 MG PO 1500, (Reported) Benzocaine/Menthol 1 Each Lozenge, 1 ANNIE MM UD PRN for COUGH, (Reported) D-Methorphan/Acetamin/Doxylamn 236 Ml Liquid, 30 ML PO DAILY PRN for COUGH, (Reported) Dextran 70/Hypromellose 15 Ml Drops, 1 DROP OU BID, (Reported) Docusate Sodium 100 Mg Capsule, 100 MG PO BID, (Reported) Doxycycline Hyclate 100 Mg Tablet, 100 MG PO BID Prescribed by: PATRICK MACK on 01/09/19 1149 Enalapril Maleate 10 Mg Tablet, 10 MG PO BID, (Reported) HOLD IF SBP <90 PULSE <60 Finasteride 5 Mg Tablet, 5 MG PO DAILY, (Reported) Furosemide 20 Mg Tablet, 20 MG PO DAILY, (Reported) Gabapentin 300 Mg Capsule, 300 MG PO BID, (Reported) Hydrocodone Bit/Acetaminophen 1 Tab Tab, 1 TAB PO Q4H PRN for PAIN-MODERATE TO SEVERE Prescribed by: PATRICK MACK on 01/09/19 1341 Insulin Detemir 100 Unit/1 Ml Insuln.pen, 33 UNITS SC BID, (Reported) Insulin Lispro 100 Unit/1 Ml Vial, 22 UNITS SC TID, (Reported) Lactobacillus Acidophilus 1 Each Capsule, 1 CAP PO BID, (Reported) Loperamide HCl 2 Mg Capsule, PO UD PRN for LOOSE STOOLS, (Reported) TAKE 2 CAPSULES AFTER FIRST LOOSE STOOL THEN TAKE 1 CAPSULE AFTER EACH SUBSEUENT LOOSE STOOL. MAX 4 CAPS IN 24 HOURS Magnesium Hydroxide 400 Mg/5 Ml Oral.susp, 30 ML PO DAILY PRN for CONSTIPATION- 7TH LINE, (Reported) Menthol 118 Ml Gel..ml., TP Q6H PRN for SHOULDER PAIN, (Reported) Metformin HCl 1,000 Mg Tablet, 1,000 MG PO BID, (Reported) Metoprolol Tartrate 50 Mg Tablet, 50 MG PO BID, (Reported) Mirabegron 50 Mg Tab.er.24h, 50 MG PO DAILY, (Reported) Nystatin 15 Gm Cream..g., 0 GM TP TID Apply sparingly under abdominal panus and jannet-area Prescribed by: PATRICK MACK on 01/09/19 1343 Phenyleph/Pramoxin/Glycr/W.pet 51 Gm Cream..g., RC Q6H PRN for HEMORRHOIDS, (Reported) Polyethylene Glycol 3350 17 Gm Powd.pack, 17 GM PO Q12H PRN for CONSTIPATION-2ND LINE, (Reported) Propylene Glycol/Peg 400 15 Ml Drops, 1 DROP OU Q4H PRN for DRY EYES, (Reported) Tamsulosin HCl 0.4 Mg Cap, 0.4 MG PO 1730, (Reported) Zinc Oxide 28 Gm Oint, TP Q8H PRN for RASH/REDNESS IN ABDOMINAL FOLD, (Reported) Patient Home Medication List Home Medication List Reviewed: Yes Review of Systems Review of Systems Constitutional: see HPI EENTM: no symptoms reported Respiratory: no symptoms reported Cardiovascular: no symptoms reported Gastrointestinal: no symptoms reported Genitourinary: no symptoms reported Musculoskeletal: no symptoms reported Skin: see HPI Psychiatric/Neurological: No Symptoms Reported Hematologic/Lymphatic: No Symptoms Reported Past Ekjuuod-Qwopiq-Abiojf Hx Past Med/Social Hx: Reviewed Nursing Past Med/Soc Hx Patient Social History Alcohol Use: Denies Use Recreational Drug Use: No Smoking Status: Unknown if Ever Smoked Recent Foreign Travel: No Contact w/Someone Who Travel: No Recent Infectious Disease Expo: No Recent Hopitalizations: No Immunizations Up To Date Tetanus Booster (TDap): More than 5yrs Date of Pneumonia Vaccine: Mar 21, 2011 Date of Influenza Vaccine: Mar 31, 2018 Seasonal Allergies Seasonal Allergies: No Past Medical History Surgeries: Yes (surgical debridement of chronic wounds) Respiratory: No Cardiac: Yes High Cholesterol, Hypertension Neurological: Yes Dementia Reproductive Disorders: No Genitourinary: Yes (INCONTINENT) Gastrointestinal: No Chronic Constipation Musculoskeletal: Yes (chronic debility, does not walk) Arthritis Endocrine: Yes Diabetes, Non-Insulin dep HEENT: Yes Cataract Loss of Vision: Bilateral Hearing Impairment: Hard of Hearing, Bilateral Hearing Aide Cancer: No Psychosocial: No Integumentary: Yes (MULTIPLE WOUNDS) Blood Disorders: No Family Medical History Cardiovascular disease 19 MOTHER (CHF) Diabetes mellitus 19 MOTHER Prostate cancer 19 FATHER Heart Disease, Cancer, Diabetes, Hypertension Physical Exam Vital Signs Vital Signs - First Documented 03/14/19 14:31 Temp 36.6 Pulse 76 Resp 14 B/P (MAP) 137/75 (95) Pulse Ox 93 Capillary Refill : Less Than 3 Seconds Height, Weight, BMI Height: 6'2.00" Weight: 324lbs. 3.0oz. 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 No evidence of necrotizing fasciitis) Progress/Results/Core Measures Suspected Sepsis Recent Fever Within 48 Hours: No Infection Criteria Present: Suspected New Infection New/Unexplained Altered Menta: No Sepsis Screen: No Definite Risk SIRS Temperature: Pulse: 76 Respiratory Rate: 14 Blood Pressure 137 /75 Mean: 95 Results/Orders My Orders Orders - RANDA PECK MD Consult Physician (03/14/19 19:26) Vital Signs/I&O 9/24/19 9/24/19 14:31 15:42 Temp 36.6 36.6 Pulse 76 76 Resp 14 14 B/P (MAP) 137/75 (95) 137/75 (95) Pulse Ox 93 93 Capillary Refill : Less Than 3 Seconds Blood Pressure Mean: 95 Progress Note : Progress Note Wound was evaluated by myself, Dr. Mayo, and Dr. Childs. Based on the personal evaluation, no interventions were determined to be needed. Patient was dismissed back to the skilled nursing. Departure Impression Primary Impression: Wound of skin Disposition: HOME, SELF-CARE Condition: Stable Departure-Patient Inst. Decision time for Depature: 15:36 Referrals: [facility]/ (PCP) Primary Care Physician CONTRERAS QUINN (Family) Primary Care Physician Patient Instructions: NO INSTRUCTIONS GIVEN Add. Discharge Instructions: Please apply fresh dressing with Dakin's solution upon return to the care facility. Otherwise follow wound care instructions. Return to care or contact Dr. Mayo if there are worsening symptoms. All discharge instructions reviewed with patient and/or family. Voiced understanding. Copy Copies To 1: YEFRI SPRINGER DO Copies To 2: DYAN MAYO MD, JOSHUA T MD Mar 14, 2019 15:37
[2019-03-14 15:42] VITALS: BP 137/75
--- NOTE | 2019-03-16 18:53 | Consultation - Surgery ---
History of Present Illness History of Present Illness Patient Consulted On(ivelisse/time) 03/14/19 15:44 Date Seen by Provider: Mar 14, 2019 Time Seen by Provider: 15:44 History of Present Illness consult requested by Dr. Tran/Justin/ patient is a 78-year-old male who resides at alf with a left buttock wound. He had this debrided recently by Dr. Anderson in the wound care clinic. Patient alf sent Dr. Anderson picture that was concerning for more necrotic tissue and was reported as having a foul smell. There was concern of necrotizing fasciitis. Patient does have some tenderness to the left wound. He is in a wheelchair and is pretty sedentary but tries to offset his pressures. Patient has no other complaints at this time. He denies any nausea vomiting fever sweats chills shortness of breath or chest pain. Allergies and Home Medications Allergies Coded Allergies: No Known Drug Allergies (Unverified , 01/03/19) Home Medications Acetaminophen 325 Mg Tablet, 650 MG PO Q4H PRN for PAIN-MILD, (Reported) TAKES 2 (325MG) TABLETS Acetaminophen 325 Mg Tablet, 650 MG PO DAILY, (Reported) Amlodipine Besylate 5 Mg Tablet, 5 MG PO DAILY, (Reported) HOLD IF SBP<90, PULSE <60 Aspirin 81 Mg Tablet.dr, 81 MG PO DAILY, (Reported) Atorvastatin Calcium 10 Mg Tablet, 10 MG PO 1500, (Reported) Benzocaine/Menthol 1 Each Lozenge, 1 ANNIE MM UD PRN for COUGH, (Reported) D-Methorphan/Acetamin/Doxylamn 236 Ml Liquid, 30 ML PO DAILY PRN for COUGH, (Reported) Dextran 70/Hypromellose 15 Ml Drops, 1 DROP OU BID, (Reported) Docusate Sodium 100 Mg Capsule, 100 MG PO BID, (Reported) Doxycycline Hyclate 100 Mg Tablet, 100 MG PO BID Prescribed by: PATRICK MACK on 01/09/19 1149 Enalapril Maleate 10 Mg Tablet, 10 MG PO BID, (Reported) HOLD IF SBP <90 PULSE <60 Finasteride 5 Mg Tablet, 5 MG PO DAILY, (Reported) Furosemide 20 Mg Tablet, 20 MG PO DAILY, (Reported) Gabapentin 300 Mg Capsule, 300 MG PO BID, (Reported) Hydrocodone Bit/Acetaminophen 1 Tab Tab, 1 TAB PO Q4H PRN for PAIN-MODERATE TO SEVERE Prescribed by: PATRICK MACK on 01/09/19 1341 Insulin Detemir 100 Unit/1 Ml Insuln.pen, 33 UNITS SC BID, (Reported) Insulin Lispro 100 Unit/1 Ml Vial, 22 UNITS SC TID, (Reported) Lactobacillus Acidophilus 1 Each Capsule, 1 CAP PO BID, (Reported) Loperamide HCl 2 Mg Capsule, PO UD PRN for LOOSE STOOLS, (Reported) TAKE 2 CAPSULES AFTER FIRST LOOSE STOOL THEN TAKE 1 CAPSULE AFTER EACH SUBSEUENT LOOSE STOOL. MAX 4 CAPS IN 24 HOURS Magnesium Hydroxide 400 Mg/5 Ml Oral.susp, 30 ML PO DAILY PRN for CONSTIPATION- 7TH LINE, (Reported) Menthol 118 Ml Gel..ml., TP Q6H PRN for SHOULDER PAIN, (Reported) Metformin HCl 1,000 Mg Tablet, 1,000 MG PO BID, (Reported) Metoprolol Tartrate 50 Mg Tablet, 50 MG PO BID, (Reported) Mirabegron 50 Mg Tab.er.24h, 50 MG PO DAILY, (Reported) Nystatin 15 Gm Cream..g., 0 GM TP TID Apply sparingly under abdominal panus and jannet-area Prescribed by: PATRICK MACK on 01/09/19 1343 Phenyleph/Pramoxin/Glycr/W.pet 51 Gm Cream..g., RC Q6H PRN for HEMORRHOIDS, (Reported) Polyethylene Glycol 3350 17 Gm Powd.pack, 17 GM PO Q12H PRN for CONSTIPATION-2ND LINE, (Reported) Propylene Glycol/Peg 400 15 Ml Drops, 1 DROP OU Q4H PRN for DRY EYES, (Reported) Tamsulosin HCl 0.4 Mg Cap, 0.4 MG PO 1730, (Reported) Zinc Oxide 28 Gm Oint, TP Q8H PRN for RASH/REDNESS IN ABDOMINAL FOLD, (Reported) Patient Home Medication List Home Medication List Reviewed: Yes Past Mwvdbju-Ubfoqm-Tlurxo Hx Patient Social History Alcohol Use: Denies Use Recreational Drug Use: No Smoking Status: Unknown if Ever Smoked Recent Foreign Travel: No Contact w/Someone Who Travel: No Recent Infectious Disease Expo: No Recent Hopitalizations: No Immunizations Up To Date Tetanus Booster (TDap): More than 5yrs Date of Pneumonia Vaccine: Mar 21, 2011 Date of Influenza Vaccine: Mar 31, 2018 Seasonal Allergies Seasonal Allergies: No Surgeries History of Surgeries: Yes (surgical debridement of chronic wounds) Respiratory History of Respiratory Disorde: No Cardiovascular History of Cardiac Disorders: Yes Cardiac Disorders: High Cholesterol, Hypertension Neurological History of Neurological Disord: Yes Neurological Disorders: Dementia Reproductive System Hx Reproductive Disorders: No Genitourinary History of Genitourinary Disor: Yes (INCONTINENT) Gastrointestinal History of Gastrointestinal Di: No Gastrointestinal Disorders: Chronic Constipation Musculoskeletal History of Musculoskeletal Dis: Yes (chronic debility, does not walk) Musculoskeletal Disorders: Arthritis Endocrine History of Endocrine Disorders: Yes Endocrine Disorders: Diabetes, Non-Insulin dep HEENT History of HEENT Disorders: Yes HEENT Disorders: Cataract Loss of Vision: Bilateral Hearing Impairment: Hard of Hearing, Bilateral Hearing Aide Cancer History of Cancer: No Psychosocial History of Psychiatric Problem: No Integumentary History of Skin or Integumenta: Yes (MULTIPLE WOUNDS) Blood Transfusions History of Blood Disorders: No Family Medical History Significant Family History: Heart Disease, Cancer, Diabetes, Hypertension Family Medial History: Cardiovascular disease 19 MOTHER (CHF) Diabetes mellitus 19 MOTHER Prostate cancer 19 FATHER Review of Systems-General Constitutional: no symptoms reported EENTM: no symptoms reported Respiratory: no symptoms reported Cardiovascular: no symptoms reported Gastrointestinal: no symptoms reported Genitourinary: no symptoms reported Musculoskeletal: no symptoms reported Skin: see HPI Psychiatric/Neurological: No Symptoms Reported Physical Exam-General Problems Physical Exam Vital Signs Vital Signs - First Documented 03/14/19 14:31 Temp 36.6 Pulse 76 Resp 14 B/P (MAP) 137/75 (95) Pulse Ox 93 Capillary Refill : Less Than 3 Seconds General Appearance: WD/WN, no apparent distress HEENT: PERRL/EOMI, normal ENT inspection Neck: non-tender, full range of motion Respiratory: chest non-tender, no respiratory distress, no accessory muscle use Cardiovascular: regular rate, rhythm Gastrointestinal: non tender, soft, no organomegaly Rectal: deferred Back: no CVA tenderness Extremities: non-tender Neurologic/Psychiatric: alert, normal mood/affect, oriented x 3 Skin: other (left buttock tenderness 10.5by 4 cmwound with subcutaneous fat is some granulation tissue present slight andrade appearance to fat appearing to be from previous silver nitrate application, right lower abdomen minimal superficial wound almost completely healed) Lymphatic: no adenopathy Assessment/Plan Assessment/Plan Assessment/Plan left buttock wound Right lower abdomen called for concern of necrotizing fascitis of left buttock wound. this appearance of wound is andrade and appears to be from recent debridement and application of silver nitrate. No surgical intervention needed on this wound or on the right lower quadrant wound. Continue with localized wound care. If need further larger debridement in near future would be happy to assist in this need. He is planning on seeing wound care on Wednesday. Any changes or concerns be seen at that time. DEEDEE SYLVESTER DO Mar 16, 2019 18:53
== END 2019-03-14 15:41 | disposition home or self-care (01) ==
LOC: EDUNIT# 14:23 → ER 14:24
DX: S31.829A Unspecified open wound of left buttock, initial encounter (principal); I10 Essential (primary) hypertension; E78.00 Pure hypercholesterolemia, unspecified; F03.90 Unspecified dementia, unspecified severity, without behavioral disturbance, psychotic disturbance, mood disturbance, and anxiety; E11.9 Type 2 diabetes mellitus without complications; Z79.82 Long term (current) use of aspirin; Z79.4 Long term (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; Z79.84 Long term (current) use of oral hypoglycemic drugs; Z82.49 Family history of ischemic heart disease and other diseases of the circulatory system; Z80.42 Family history of malignant neoplasm of prostate; X58.XXXA Exposure to other specified factors, initial encounter
CPT/HCPCS: 99282

== ENCOUNTER → 2019-03-17 | Outpatient (CLI) | payer MEDICARE, OTHER, MEDICAID | LOC: WOUNDCARE 08:49 | PROVIDERS: ATTEND Surgery | DX: L89.323 Pressure ulcer of left buttock, stage 3 (principal); E11.622 Type 2 diabetes mellitus with other skin ulcer; E11.52 Type 2 diabetes mellitus with diabetic peripheral angiopathy with gangrene; E66.01 Morbid (severe) obesity due to excess calories; I89.0 Lymphedema, not elsewhere classified; R68.89 Other general symptoms and signs | CPT/HCPCS: 99213 ==

== ENCOUNTER → 2019-03-24 | Outpatient (CLI) | payer MEDICARE, OTHER, MEDICAID | LOC: WOUNDCARE 09:02 | PROVIDERS: ATTEND Surgery | DX: L89.323 Pressure ulcer of left buttock, stage 3 (principal); E11.622 Type 2 diabetes mellitus with other skin ulcer; E66.01 Morbid (severe) obesity due to excess calories; D72.810 Lymphocytopenia; E11.52 Type 2 diabetes mellitus with diabetic peripheral angiopathy with gangrene; R68.89 Other general symptoms and signs | CPT/HCPCS: 11042; 11045 ==

== ENCOUNTER → 2019-04-07 | Outpatient (CLI) | payer MEDICARE, OTHER, MEDICAID | LOC: WOUNDCARE 09:08 | PROVIDERS: ATTEND Surgery | DX: E11.622 Type 2 diabetes mellitus with other skin ulcer (principal); E11.52 Type 2 diabetes mellitus with diabetic peripheral angiopathy with gangrene; E66.01 Morbid (severe) obesity due to excess calories; I96 Gangrene, not elsewhere classified; L89.323 Pressure ulcer of left buttock, stage 3; I89.0 Lymphedema, not elsewhere classified; R68.89 Other general symptoms and signs | CPT/HCPCS: 11042; 11045 ==

== ENCOUNTER → 2019-04-14 | Outpatient (CLI) | payer MEDICARE, OTHER, MEDICAID | LOC: WOUNDCARE 08:45 | PROVIDERS: ATTEND Surgery | DX: L89.323 Pressure ulcer of left buttock, stage 3 (principal); E11.622 Type 2 diabetes mellitus with other skin ulcer; E66.01 Morbid (severe) obesity due to excess calories; D72.810 Lymphocytopenia; E11.52 Type 2 diabetes mellitus with diabetic peripheral angiopathy with gangrene; R68.89 Other general symptoms and signs | CPT/HCPCS: 11042; 11045 ==

== ENCOUNTER → 2019-04-21 | Outpatient (CLI) | payer MEDICARE, OTHER, MEDICAID ==
[~2019-04-21] MED LIST changes: -TAMS0.4C98 PO
== END ==
LOC: WOUNDCARE 09:04
PROVIDERS: ATTEND Surgery
DX: L89.323 Pressure ulcer of left buttock, stage 3 (principal); E11.622 Type 2 diabetes mellitus with other skin ulcer; E66.01 Morbid (severe) obesity due to excess calories; D72.810 Lymphocytopenia; E11.52 Type 2 diabetes mellitus with diabetic peripheral angiopathy with gangrene; R68.89 Other general symptoms and signs; R21 Rash and other nonspecific skin eruption
CPT/HCPCS: 11042; 11045

== ENCOUNTER → 2019-04-28 | Outpatient (CLI) | payer MEDICARE, OTHER, MEDICAID ==
[~2019-04-28] MED LIST changes: +TAMS0.4C98 PO
== END ==
LOC: WOUNDCARE 08:51
PROVIDERS: ATTEND Surgery
DX: L89.323 Pressure ulcer of left buttock, stage 3 (principal); E11.622 Type 2 diabetes mellitus with other skin ulcer; E66.01 Morbid (severe) obesity due to excess calories; D72.810 Lymphocytopenia; E11.52 Type 2 diabetes mellitus with diabetic peripheral angiopathy with gangrene; R21 Rash and other nonspecific skin eruption
CPT/HCPCS: 11042

== ENCOUNTER → 2019-05-05 | Outpatient (CLI) | payer MEDICARE, OTHER, MEDICAID | LOC: WOUNDCARE 08:51 | PROVIDERS: ATTEND Surgery | DX: L89.323 Pressure ulcer of left buttock, stage 3 (principal); E11.622 Type 2 diabetes mellitus with other skin ulcer; E66.01 Morbid (severe) obesity due to excess calories; D72.810 Lymphocytopenia; E11.52 Type 2 diabetes mellitus with diabetic peripheral angiopathy with gangrene; R21 Rash and other nonspecific skin eruption | CPT/HCPCS: 11042 ==

== ENCOUNTER → 2019-05-12 | Outpatient (CLI) | payer MEDICARE, OTHER, MEDICAID | LOC: WOUNDCARE 08:45 | PROVIDERS: ATTEND Surgery | DX: L89.323 Pressure ulcer of left buttock, stage 3 (principal); E11.622 Type 2 diabetes mellitus with other skin ulcer; E11.52 Type 2 diabetes mellitus with diabetic peripheral angiopathy with gangrene; E66.01 Morbid (severe) obesity due to excess calories; D72.810 Lymphocytopenia; R21 Rash and other nonspecific skin eruption | CPT/HCPCS: 11042 ==

== ENCOUNTER → 2019-05-26 | Outpatient (CLI) | payer MEDICARE, OTHER, MEDICAID ==
[~2019-05-26] MED LIST changes: -TAMS0.4C98 PO
== END ==
LOC: WOUNDCARE 08:48
PROVIDERS: ATTEND Surgery
DX: L89.323 Pressure ulcer of left buttock, stage 3 (principal); E11.622 Type 2 diabetes mellitus with other skin ulcer; E11.52 Type 2 diabetes mellitus with diabetic peripheral angiopathy with gangrene; E66.01 Morbid (severe) obesity due to excess calories; D72.810 Lymphocytopenia; R21 Rash and other nonspecific skin eruption
CPT/HCPCS: 99212

== ENCOUNTER 2020-08-31 21:22 | Inpatient (IN) | payer MEDICARE, OTHER, MEDICAID ==
[~2020-08-31] VITALS: Ht 188 cm; Wt 142.1 kg
[~2020-08-31 21:22] MED LIST changes: +AMLO-250 PO; -AMLO5TAB9 PO; +ASPI-1238 PO; -ASPI-983 PO; -CLIN300C11 PO; +CLIN300C12 PO; -ENAL10TA PO; +ENAL10TA16 PO
[2020-08-31 21:44] VITALS: BP 92/66
[2020-08-31] MEDS ORDERED: RT-ALBUTEROL INHALER HFA (VENTOLIN HFA) 18 GM IH ONE (21:45)
[2020-08-31 21:47] LABS: BASOPHILS # (AUTO) 0.1 10^3/uL (0.0-0.1); BASOPHILS % (AUTO) 0 % (0-10); EOSINOPHILS % (AUTO) 0 % (0-10); HEMATOCRIT 43 % (40-54); HEMOGLOBIN 13.2 g/dL (13.3-17.7); LYMPHOCYTES # (AUTO) 0.4 10^3/uL (1.0-4.0); LYMPHOCYTES % (AUTO) 2 % (12-44); MEAN CORPUSCULAR HEMOGLOBIN 28 pg (25-34); MEAN CORPUSCULAR HGB CONC 31 g/dL (32-36); MEAN CORPUSCULAR VOLUME 91 fL (80-99); MEAN PLATELET VOLUME 9.6 fL (9.0-12.2); MONOCYTES # (AUTO) 0.8 10^3/uL (0.0-1.0); MONOCYTES % (AUTO) 5 % (0-12); NEUTROPHILS # (AUTO) 14.6 10^3/uL (1.8-7.8); NEUTROPHILS % (AUTO) 92 % (42-75); PLATELET COUNT 463 10^3/uL (130-400); WHITE BLOOD COUNT 15.9 10^3/uL (4.3-11.0)
[2020-08-31 22:03] LABS: ALBUMIN 3.1 GM/DL (3.2-4.5); CHLORIDE 97 MMOL/L (98-107); POTASSIUM 4.8 MMOL/L (3.6-5.0); SODIUM 136 MMOL/L (135-145)
[2020-08-31 22:04] LABS: CALCIUM 9.1 MG/DL (8.5-10.1)
[2020-08-31 22:05] LABS: GLUCOSE 158 MG/DL (70-105); TOTAL PROTEIN 7.7 GM/DL (6.4-8.2)
[2020-08-31 22:07] LABS: BILIRUBIN,TOTAL 0.5 MG/DL (0.1-1.0); CARBON DIOXIDE 26 MMOL/L (21-32)
--- NOTE | 2020-08-31 22:07 | Diagnostic Imaging Report ---
EXAMINATION: Chest radiograph, portable AP view. DATE: 08/31/2020 9:58 PM INDICATION: 79-year-old male, sepsis. Shortness of breath. COMPARISON: July 08, 2012. FINDINGS: There is masslike consolidation overlying the right midlung. There is additional multifocal airspace consolidation in the right lung. There is a probable right pleural effusion. There is cervical spine hardware. Stable overall appearance of the cardiomediastinal silhouette. IMPRESSION: 1. Extensive multifocal airspace consolidation in the right lung with probable right pleural effusion. There is also masslike consolidation projecting over the right midlung. Recommend CT chest with intravenous contrast for further assessment. Dictated by: Dictated on workstation # [id number]
[2020-08-31 22:09] LABS: ALKALINE PHOSPHATASE 109 U/L (40-136); CREATININE SERUM 0.74 MG/DL (0.60-1.30); GFR ESTIMATED > 60
[2020-08-31 22:10] LABS: BUN/CREATININE RATIO 16
[2020-08-31 22:11] LABS: LYMPHOCYTES % (MANUAL) 5 %; MONOCYTES % (MANUAL) 6 %; NEUTROPHILS % (MANUAL) 89 %; RBC MORPH NORMAL
[2020-08-31 22:14] LABS: INR 1.4 (0.8-1.4); PROTHROMBIN TIME PATIENT 17.3 SEC (12.2-14.7)
[2020-08-31 22:30] LABS: ALANINE AMINOTRANSFERASE 49 U/L (0-55)
[2020-08-31] MEDS ORDERED: PIPERACILLIN SODIUM/TAZOBACTAM 4.5 GM in NS (IVPB) 100 ML IV ONE (22:45)
[2020-08-31] MEDS ORDERED: LACTATED RINGERS 1,000 ML IV ONE ×2 (23:15→23:30)
--- NOTE | 2020-08-31 23:28 | ED General ---
General Chief Complaint: Respiratory Problems Stated Complaint: SOA Nursing Triage Note: BROUGHT IN BY [facility] FOR INCREASED SOA. SPO2 89% ON N/C Nursing Sepsis Screen: No Definite Risk Source of Information: Patient, EMS, Long Term Records Exam Limitations: No Limitations History of Present Illness Date Seen by Provider: Aug 31, 2020 Time Seen by Provider: 21:23 Initial Comments This 79-year-old gentleman presents [facility] the emergency room [facility] has been experiencing increasing shortness of breath. EMS notes a temperature of 101.6. Patient has been treated for pneumonia with Levaquin but his condition has worsened. He notes no complaints upon arrival. He is hypoxic with oxygen saturations in the 80s on 6 L by nasal cannula. Blood pressure was normal for EMS but he is hypotensive during assessment. He reportedly had a negative COVID-19 test at the jail today. Allergies and Home Medications Allergies Coded Allergies: No Known Drug Allergies (Unverified , 01/03/19) Home Medications Acetaminophen 325 Mg Tablet, 650 MG PO Q4H PRN for PAIN-MILD, (Reported) TAKES 2 (325MG) TABLETS Acetaminophen 325 Mg Tablet, 650 MG PO DAILY, (Reported) Amlodipine Besylate 5 Mg Tablet, 5 MG PO DAILY, (Reported) HOLD IF SBP<90, PULSE <60 Aspirin 81 Mg Tablet.dr, 81 MG PO DAILY, (Reported) Atorvastatin Calcium 10 Mg Tablet, 10 MG PO 1500, (Reported) Benzocaine/Menthol 1 Each Lozenge, 1 ANNIE MM UD PRN for COUGH, (Reported) D-Methorphan/Acetamin/Doxylamn 236 Ml Liquid, 30 ML PO DAILY PRN for COUGH, (Reported) Dextran 70/Hypromellose 15 Ml Drops, 1 DROP OU BID, (Reported) Docusate Sodium 100 Mg Capsule, 100 MG PO BID, (Reported) Doxycycline Hyclate 100 Mg Tablet, 100 MG PO BID Prescribed by: PATRICK MACK on 01/09/19 1149 Enalapril Maleate 10 Mg Tablet, 10 MG PO BID, (Reported) HOLD IF SBP <90 PULSE <60 Finasteride 5 Mg Tablet, 5 MG PO DAILY, (Reported) Furosemide 20 Mg Tablet, 20 MG PO DAILY, (Reported) Gabapentin 300 Mg Capsule, 300 MG PO BID, (Reported) Hydrocodone Bit/Acetaminophen 1 Tab Tab, 1 TAB PO Q4H PRN for PAIN-MODERATE TO SEVERE Prescribed by: PATRICK MACK on 01/09/19 1341 Insulin Detemir 100 Unit/1 Ml Insuln.pen, 33 UNITS SC BID, (Reported) Insulin Lispro 100 Unit/1 Ml Vial, 22 UNITS SC TID, (Reported) Lactobacillus Acidophilus 1 Each Capsule, 1 CAP PO BID, (Reported) Loperamide HCl 2 Mg Capsule, PO UD PRN for LOOSE STOOLS, (Reported) TAKE 2 CAPSULES AFTER FIRST LOOSE STOOL THEN TAKE 1 CAPSULE AFTER EACH SUBSEUENT LOOSE STOOL. MAX 4 CAPS IN 24 HOURS Magnesium Hydroxide 400 Mg/5 Ml Oral.susp, 30 ML PO DAILY PRN for CONSTIPATION- 7TH LINE, (Reported) Menthol 118 Ml Gel..ml., TP Q6H PRN for SHOULDER PAIN, (Reported) Metformin HCl 1,000 Mg Tablet, 1,000 MG PO BID, (Reported) Metoprolol Tartrate 50 Mg Tablet, 50 MG PO BID, (Reported) Mirabegron 50 Mg Tab.er.24h, 50 MG PO DAILY, (Reported) Nystatin 15 Gm Cream..g., 0 GM TP TID Apply sparingly under abdominal panus and jannet-area Prescribed by: PATRICK MACK on 01/09/19 1343 Phenyleph/Pramoxin/Glycr/W.pet 51 Gm Cream..g., RC Q6H PRN for HEMORRHOIDS, (R eported) Polyethylene Glycol 3350 17 Gm Powd.pack, 17 GM PO Q12H PRN for CONSTIPATION-2ND LINE, (Reported) Propylene Glycol/Peg 400 15 Ml Drops, 1 DROP OU Q4H PRN for DRY EYES, (Reported) Tamsulosin HCl 0.4 Mg Cap, 0.4 MG PO 1730, (Reported) Zinc Oxide 28 Gm Oint, TP Q8H PRN for RASH/REDNESS IN ABDOMINAL FOLD, (Reported) Patient Home Medication List Home Medication List Reviewed: Yes Review of Systems Review of Systems Constitutional: see HPI EENTM: no symptoms reported Respiratory: see HPI Cardiovascular: no symptoms reported Gastrointestinal: no symptoms reported Genitourinary: no symptoms reported Musculoskeletal: no symptoms reported Skin: no symptoms reported Psychiatric/Neurological: No Symptoms Reported Hematologic/Lymphatic: No Symptoms Reported Immunological/Allergic: no symptoms reported Past Xuooogq-Sbbhii-Wtlecw Hx Past Med/Social Hx: Reviewed Nursing Past Med/Soc Hx Patient Social History Alcohol Use: Denies Use Smoking Status: Never a Smoker Recent Infectious Disease Expo: No Recent Hopitalizations: No Immunizations Up To Date Tetanus Booster (TDap): More than 5yrs Date of Pneumonia Vaccine: Mar 21, 2011 Date of Influenza Vaccine: Mar 31, 2018 Seasonal Allergies Seasonal Allergies: No Past Medical History Surgeries: Yes (surgical debridement of chronic wounds) Respiratory: Yes Pneumonia Cardiac: Yes High Cholesterol, Hypertension Neurological: Yes (History of foot drop) Dementia Reproductive Disorders: No Genitourinary: Yes (INCONTINENT) Gastrointestinal: Yes Chronic Constipation Musculoskeletal: Yes (chronic debility, does not walk) Arthritis Endocrine: Yes Diabetes, Non-Insulin dep HEENT: Yes Cataract Loss of Vision: Bilateral Hearing Impairment: Hard of Hearing, Bilateral Hearing Aide Cancer: No Psychosocial: No Integumentary: Yes (MULTIPLE WOUNDS) Blood Disorders: No Family Medical History Cardiovascular disease 19 MOTHER (CHF) Diabetes mellitus 19 MOTHER Prostate cancer 19 FATHER Heart Disease, Cancer, Diabetes, Hypertension Physical Exam-Suspected Sepsis Physical Exam Vital Signs Vital Signs - First Documented 08/31/20 09/01/20 21:25 01:15 Temp 37.2 Pulse 101 Resp 27 B/P (MAP) 89/61 (70) Pulse Ox 90 O2 Delivery Nasal Cannula O2 Flow Rate 5.00 FiO2 60 Capillary Refill : Less Than 3 Seconds Blood Pressure Mean: 70 Height, Weight, BMI Height: 6'2.00" Weight: 324lbs. 3.0oz. 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74, INR Comment 1.4, Platelet Count 463H, Total Bilirubin 0.5 09/01/20 03:40: Creatinine 0.66, Platelet Count 425H, Total Bilirubin 0.5 Results/Orders Lab Results Laboratory Tests Test 08/31/20 21:30 08/31/20 21:37 09/01/20 00:10 09/01/20 01:10 Range/Units White Blood Count 15.9 H 4.3-11.0 10^3/uL Red Blood Count 4.77 4.30-5.52 10^6/uL Hemoglobin 13.2 L 13.3-17.7 g/dL Hematocrit 43 40-54 % Mean Corpuscular Volume 91 80-99 fL Mean Corpuscular Hemoglobin 28 25-34 pg Mean Corpuscular Hemoglobin Concent 31 L 32-36 g/dL Red Cell Distribution Width 14.7 H 10.0-14.5 % Platelet Count 463 H 130-400 10^3/uL Mean Platelet Volume 9.6 9.0-12.2 fL Immature Granulocyte % (Auto) 0 % Neutrophils (%) (Auto) 92 H 42-75 % Lymphocytes (%) (Auto) 2 L 12-44 % Monocytes (%) (Auto) 5 0-12 % Eosinophils (%) (Auto) 0 0-10 % Basophils (%) (Auto) 0 0-10 % Neutrophils # (Auto) 14.6 H 1.8-7.8 10^3/uL Lymphocytes # (Auto) 0.4 L 1.0-4.0 10^3/uL Monocytes # (Auto) 0.8 0.0-1.0 10^3/uL Eosinophils # (Auto) 0.0 0.0-0.3 10^3/uL Basophils # (Auto) 0.1 0.0-0.1 10^3/uL Immature Granulocyte # (Auto) 0.1 0.0-0.1 10^3/uL Neutrophils % (Manual) 89 % Lymphocytes % (Manual) 5 % Monocytes % (Manual) 6 % Blood Morphology Comment NORMAL Prothrombin Time 17.3 H 12.2-14.7 SEC INR Comment 1.4 0.8-1.4 Activated Partial Thromboplast Time 42 H 24-35 SEC Sodium Level 136 135-145 MMOL/L Potassium Level 4.8 3.6-5.0 MMOL/L Chloride Level 97 L 98-107 MMOL/L Carbon Dioxide Level 26 21-32 MMOL/L Anion Gap 13 5-14 MMOL/L Blood Urea Nitrogen 12 7-18 MG/DL Creatinine 0.74 0.60-1.30 MG/DL Estimat Glomerular Filtration Rate > 60 BUN/Creatinine Ratio 16 Glucose Level 158 H 70-105 MG/DL Lactic Acid Level 1.58 0.50-2.00 MMOL/L Calcium Level 9.1 8.5-10.1 MG/DL Corrected Calcium 9.8 8.5-10.1 MG/DL Total Bilirubin 0.5 0.1-1.0 MG/DL Aspartate Amino Transf (AST/SGOT) 45 H 5-34 U/L Alanine Aminotransferase (ALT/SGPT) 49 0-55 U/L Alkaline Phosphatase 109 40-136 U/L Lactate Dehydrogenase 184 125-220 U/L C-Reactive Protein High Sensitivity 24.51 H 0.00-0.50 MG/DL B-Type Natriuretic Peptide 79.1 <100.0 PG/ML Total Protein 7.7 6.4-8.2 GM/DL Albumin 3.1 L 3.2-4.5 GM/DL Procalcitonin 0.38 H <0.10 NG/ML Coronavirus 2019 ([facility]) Negative Negative Urine Color YELLOW Urine Clarity CLEAR Urine pH 5.5 5-9 Urine Specific Kemmerer 1.010 L 1.016-1.022 Urine Protein NEGATIVE NEGATIVE Urine Glucose (UA) 3+ H NEGATIVE Urine Ketones NEGATIVE NEGATIVE Urine Nitrite NEGATIVE NEGATIVE Urine Bilirubin NEGATIVE NEGATIVE Urine Urobilinogen 0.2 < = 1.0 MG/DL Urine Leukocyte Esterase NEGATIVE NEGATIVE Urine RBC (Auto) NEGATIVE NEGATIVE Urine RBC NONE /HPF Urine WBC NONE /HPF Urine Squamous Epithelial Cells RARE /HPF Urine Crystals NONE /LPF Urine Bacteria TRACE /HPF Urine Casts NONE /LPF Urine Mucus SMALL H /LPF Urine Culture Indicated NO Blood Gas Puncture Site L RAD Blood Gas Patient Temperature 36.2 Arterial Blood pH 7.40 7.37-7.43 Arterial Blood Partial Pressure CO2 46 H 35-45 MMHG Arterial Blood Partial Pressure O2 129 H 79-93 MMHG Arterial Blood HCO3 28 H 23-27 MMOL/L Arterial Blood Total CO2 29.5 21.0-31.0 MMOL/L Arterial Blood Oxygen Saturation 99 94-100 % Arterial Blood Base Excess 3.5 H -2.5-2.5 MMOL/L Chris Test YES-POS Blood Gas Ventilator Setting NO Blood Gas Inspired Oxygen 60% BIPAP Test 09/01/20 03:40 Range/Units White Blood Count 15.2 H 4.3-11.0 10^3/uL Red Blood Count 3.96 L 4.30-5.52 10^6/uL Hemoglobin 11.2 L 13.3-17.7 g/dL Hematocrit 36 L 40-54 % Mean Corpuscular Volume 91 80-99 fL Mean Corpuscular Hemoglobin 28 25-34 pg Mean Corpuscular Hemoglobin Concent 31 L 32-36 g/dL Red Cell Distribution Width 14.7 H 10.0-14.5 % Platelet Count 425 H 130-400 10^3/uL Mean Platelet Volume 10.3 9.0-12.2 fL Immature Granulocyte % (Auto) 1 % Neutrophils (%) (Auto) 86 H 42-75 % Lymphocytes (%) (Auto) 5 L 12-44 % Monocytes (%) (Auto) 8 0-12 % Eosinophils (%) (Auto) 0 0-10 % Basophils (%) (Auto) 0 0-10 % Neutrophils # (Auto) 13.1 H 1.8-7.8 10^3/uL Lymphocytes # (Auto) 0.8 L 1.0-4.0 10^3/uL Monocytes # (Auto) 1.2 H 0.0-1.0 10^3/uL Eosinophils # (Auto) 0.0 0.0-0.3 10^3/uL Basophils # (Auto) 0.1 0.0-0.1 10^3/uL Immature Granulocyte # (Auto) 0.1 0.0-0.1 10^3/uL Sodium Level 137 135-145 MMOL/L Potassium Level 4.4 3.6-5.0 MMOL/L Chloride Level 101 98-107 MMOL/L Carbon Dioxide Level 25 21-32 MMOL/L Anion Gap 11 5-14 MMOL/L Blood Urea Nitrogen 13 7-18 MG/DL Creatinine 0.66 0.60-1.30 MG/DL Estimat Glomerular Filtration Rate > 60 BUN/Creatinine Ratio 20 Glucose Level 172 H 70-105 MG/DL Calcium Level 8.8 8.5-10.1 MG/DL Phosphorus Level 4.2 2.3-4.7 MG/DL Magnesium Level 1.9 1.6-2.4 MG/DL Total Bilirubin 0.5 0.1-1.0 MG/DL Direct Bilirubin 0.4 H 0.0-0.3 MG/DL Indirect Bilirubin 0.1 MG/DL Alanine Aminotransferase (ALT/SGPT) 49 0-55 U/L Alkaline Phosphatase 108 40-136 U/L Total Protein 7.7 6.4-8.2 GM/DL Albumin 3.2 3.2-4.5 GM/DL Procalcitonin 0.39 H <0.10 NG/ML Micro Results Microbiology 08/31/20 Influenza Types A,B Antigen (YVON) - Final, Complete My Orders Orders - RANDA PECK MD Cbc With Automated Diff (08/31/20 21:35) Comprehensive Metabolic Panel (08/31/20 21:35) Blood Culture (08/31/20 21:35) Sputum Culture (08/31/20 21:35) Urinalysis (08/31/20 21:35) Urine Culture (08/31/20 21:35) Protime With Inr (08/31/20 21:35) Partial Thromboplastin Time (08/31/20 21:35) Chest 1 View, Ap/Pa Only (08/31/20 21:35) Ed Iv/Invasive Line Start (08/31/20 21:35) Ed Iv/Invasive Line Start (08/31/20 21:35) Vital Signs Adult Sepsis Patie Q15M (08/31/20 21:35) O2 (08/31/20 21:35) Remove Rings In Anticipation O (08/31/20 21:35) Lactic Acid Analyzer (08/31/20 21:35) Influenza A And B Antigens (08/31/20 21:35) Procalcitonin (Pct) (08/31/20 21:35) Hs C Reactive Protein (08/31/20 21:35) LDH (08/31/20 21:35) Covid 19 Inhouse Test (08/31/20 21:35) Albuterol Inhaler (Ventolin Hfa) (08/31/20 21:45) BNP (08/31/20 21:38) Manual Differential (08/31/20 21:30) Piperacillin Sodium/Tazobactam (Zosyn Vi (08/31/20 22:45) Ed Iv/Invasive Line Start (08/31/20 23:07) Lactated Ringers (Lr 1000 Ml Iv Solution (08/31/20 23:15) Lactated Ringers (Lr 1000 Ml Iv Solution (08/31/20 23:30) Coronavirus Sars-Cov-2 So 2018 (08/31/20 23:21) Medications Given in ED Current Medications Medications Dose Ordered Sig/Carrillo Route Start Time Stop Time Status Last Admin Dose Admin Albuterol Sulfate ONCE ONCE IH 08/31/20 21:45 08/31/20 21:46 DC 08/31/20 21:44 4 GM Lactated Ringer's 1,000 ml @ 0 mls/hr Q0M ONCE IV 08/31/20 23:15 08/31/20 23:16 DC 08/31/20 23:19 0 MLS/HR Lactated Ringer's 1,000 ml @ 0 mls/hr Q0M ONCE IV 08/31/20 23:30 08/31/20 23:31 DC 09/01/20 00:02 0 MLS/HR Piperacillin Sod/ Tazobactam Sod 4.5 gm/Sodium Chloride 100 ml @ 200 mls/hr ONCE ONCE IV 08/31/20 22:45 08/31/20 23:15 DC 08/31/20 23:00 200 MLS/HR Vital Signs/I&O 08/31/20 08/31/20 08/31/20 09/01/20 21:25 21:25 21:44 00:15 Temp 37.2 Pulse 101 96 Resp 27 32 18 B/P (MAP) 89/61 (70) 113/55 (74) Pulse Ox 90 97 O2 Delivery Nasal Cannula Nasal Cannula NIV Bilevel O2 Flow Rate 5.00 5.00 60.00 60.00 09/01/20 09/01/20 09/01/20 09/01/20 00:24 00:58 01:03 01:15 Temp 36.6 36.1 Pulse 84 96 80 78 Resp 18 32 18 18 B/P (MAP) 107/66 120/67 (84) 113/55 (74) Pulse Ox 98 98 99 96 O2 Delivery NIV Bilevel NIV Bilevel NIV Bilevel O2 Flow Rate 60.00 60.00 60.00 60.00 09/01/20 09/01/20 09/01/20 09/01/20 01:15 01:30 01:38 02:00 Pulse 80 81 79 Resp 18 18 B/P (MAP) 100/52 (68) 98/55 (69) Pulse Ox 91 99 98 O2 Delivery NIV Bilevel NIV Bilevel NIV Bilevel O2 Flow Rate 60.00 60.00 FiO2 60 09/01/20 09/01/20 09/01/20 09/01/20 03:19 03:30 03:49 04:00 Temp 37.2 Pulse 101 74 Resp 18 B/P (MAP) 110/58 (75) Pulse Ox 96 90 95 O2 Delivery NIV Bilevel NIV Bilevel NIV Bilevel O2 Flow Rate 45.00 40.00 40.00 FiO2 40 09/01/20 09/01/20 09/01/20 09/01/20 04:00 05:00 05:32 06:00 Temp 36.6 Pulse 74 73 Resp 18 18 B/P (MAP) 116/57 (76) 111/56 (74) Pulse Ox 96 92 O2 Delivery NIV Bilevel NIV Bilevel High Flow N/C High Flow N/C O2 Flow Rate 40.00 3.00 3.00 FiO2 30 09/01/20 09/01/20 09/01/20 07:00 07:00 07:16 Pulse 69 69 B/P (MAP) 131/63 (85) Pulse Ox 89 92 O2 Delivery High Flow N/C O2 Flow Rate 3.00 3.00 09/01/20 00:00 Intake Total 200 ml Balance 200 ml Capillary Refill : Less Than 3 Seconds Blood Pressure Mean: 70 Progress Note : Progress Note Septic work-up was pursued. Patient was found to have significant airspace consolidation in the right lung. Rapid Covid and influenza screens were negativ e. Covid PCR test was ordered and was pending at admission. Initial treatment for pneumonia was initiated with Zosyn in the ER. Blood cultures and lactic acid were obtained prior to antibiotics. Patient was hypotensive after his first liter of IV fluids. A second liter was ordered and the severe sepsis order set was used for admission to facilitate vasopressors if needed. Patient was started on BiPAP which improved his respiratory status greatly. He was able to relax and fall asleep while maintaining oxygen saturations and eliminating his distress. He has a DO NOT RESUSCITATE on file with his jail papers. Diagnostic Imaging Diagonstic Imaging: Xray Plain Films/CT/US/NM/MRI: chest Comments NAME: CHARLIE CORONADO [facility] REC#: [id number] PT STATUS: REG ER : 1940 PHYSICIAN: RANDA PECK MD ADMIT DATE: 08/31/20/ER Draft Date of Exam:08/31/20 CHEST 1 VIEW, AP/PA ONLY EXAMINATION: Chest radiograph, portable AP view. DATE: 08/31/2020 9:58 PM INDICATION: 79-year-old male, sepsis. Shortness of breath. COMPARISON: July 08, 2012. FINDINGS: There is masslike consolidation overlying the right midlung. There is additional multifocal airspace consolidation in the right lung. There is a probable right pleural effusion. There is cervical spine hardware. Stable overall appearance of the cardiomediastinal silhouette. IMPRESSION: 1. Extensive multifocal airspace consolidation in the right lung with probable right pleural effusion. There is also masslike consolidation projecting over the right midlung. Recommend CT chest with intravenous contrast for further assessment. Dictated on workstation # [id number] Dict: 08/31/20 2158 Trans: 08/31/202205 [facility] [id number] Interpreted by: SHANNAN ANAYA MD Departure Communication (Admissions) Time/Spoke to Admitting Phy: 23:10 Dr. Foley Impression Primary Impression: Severe sepsis Additional Impressions: Pneumonia Qualified Codes: J18.9 - Pneumonia, unspecified organism Person under investigation for COVID-19 Respiratory failure Qualified Codes: J96.01 - Acute respiratory failure with hypoxia Disposition: ADMITTED INPATIENT Condition: Improved Admissions Decision to Admit Reason: Admit from ER (General) Decision to Admit/Date: Aug 31, 2020 Time/Decision to Admit Time: 21:30 Departure-Patient Inst. Referrals: [facility] (PCP) Primary Care Physician CONTRERAS QUINN (Family) Primary Care Physician RANDA PECK MD Aug 31, 2020 23:28
[2020-09-01 00:58] VITALS: BP 92/66
[2020-09-01 01:20] LABS: BILIRUBIN,URINE NEGATIVE (NEGATIVE); CLARITY,URINE CLEAR; COLOR,URINE YELLOW; GLUCOSE, URINE (UA) 3+ (NEGATIVE); KETONES,URINE NEGATIVE (NEGATIVE); LEUKOCYTE ESTERASE ,URINE NEGATIVE (NEGATIVE); NITRITE,URINE NEGATIVE (NEGATIVE); PH,URINE 5.5 (5-9); PROTEIN,URINE NEGATIVE (NEGATIVE)
[2020-09-01 01:21] LABS: ABG BASE EXCESS 3.5 MMOL/L (-2.5-2.5); ABG OXYGEN SATURATION 99 % (94-100); ABG PCO2 46 MMHG (35-45); ABG PO2 129 MMHG (79-93); ABG TCO2 29.5 MMOL/L (21.0-31.0)
[2020-09-01 01:22] LABS: ALLENS TEST YES-POS; INSPIRED O2 60% BIPAP; PATIENT TEMP 36.2; VENTILATOR NO
[2020-09-01 01:26] LABS: BACTERIA,URINE TRACE /HPF; SQUAMOUS EPITHELIAL CELL,UR RARE /HPF
[2020-09-01] MEDS ORDERED: ONDANSETRON 4 MG/2 ML (SDV) Z0FRAN IV PRN (01:30)
[2020-09-01] MEDS ORDERED: LACTATED RINGERS 1,000 ML IV SCH (01:45)
[2020-09-01] MEDS: LACTATED RINGERS 1,000 ML IV SCH ×4 (03:16→20:30)
[2020-09-01] MEDS: VASOPRESSIN INJECTION 20 UNIT in NS (IVPB) 100 ML IV SCH ×3 (03:25→13:58)
[2020-09-01] MEDS: NOREPINEPHRINE 8 MG/250 ML 250 ML IV SCH ×3 (03:25→13:58)
[2020-09-01 03:30] VITALS: BP 89/61
[2020-09-01] MEDS ORDERED: RT-ALBUTEROL INHALER HFA (VENTOLIN HFA) 18 GM IH SCH (03:45)
[2020-09-01] MEDS ORDERED: VANCOMYCIN INJECTION 2,000 MG in NS IV 500 ML 500 ML IV SCH (04:00)
[2020-09-01] MEDS ORDERED: AZITHROMYCIN INJECTION 500 MG in NS (IVPB) 250 ML IV SCH (04:00)
[2020-09-01 04:13] LABS: BASOPHILS # (AUTO) 0.1 10^3/uL (0.0-0.1); BASOPHILS % (AUTO) 0 % (0-10); EOSINOPHILS % (AUTO) 0 % (0-10); HEMATOCRIT 36 % (40-54); HEMOGLOBIN 11.2 g/dL (13.3-17.7); LYMPHOCYTES # (AUTO) 0.8 10^3/uL (1.0-4.0); LYMPHOCYTES % (AUTO) 5 % (12-44); MEAN CORPUSCULAR HEMOGLOBIN 28 pg (25-34); MEAN CORPUSCULAR HGB CONC 31 g/dL (32-36); MEAN CORPUSCULAR VOLUME 91 fL (80-99); MEAN PLATELET VOLUME 10.3 fL (9.0-12.2); MONOCYTES # (AUTO) 1.2 10^3/uL (0.0-1.0); MONOCYTES % (AUTO) 8 % (0-12); NEUTROPHILS # (AUTO) 13.1 10^3/uL (1.8-7.8); NEUTROPHILS % (AUTO) 86 % (42-75); PLATELET COUNT 425 10^3/uL (130-400); WHITE BLOOD COUNT 15.2 10^3/uL (4.3-11.0)
[2020-09-01 04:16] LABS: CHLORIDE 101 MMOL/L (98-107); POTASSIUM 4.4 MMOL/L (3.6-5.0); SODIUM 137 MMOL/L (135-145)
[2020-09-01 04:17] LABS: CALCIUM 8.8 MG/DL (8.5-10.1)
[2020-09-01 04:18] LABS: GLUCOSE 172 MG/DL (70-105)
[2020-09-01 04:20] LABS: CARBON DIOXIDE 25 MMOL/L (21-32)
[2020-09-01 04:22] LABS: CREATININE SERUM 0.66 MG/DL (0.60-1.30); GFR ESTIMATED > 60; PHOSPHORUS 4.2 MG/DL (2.3-4.7)
[2020-09-01 04:23] LABS: BUN/CREATININE RATIO 20
[2020-09-01 04:24] LABS: MAGNESIUM 1.9 MG/DL (1.6-2.4)
[2020-09-01] MEDS ORDERED: VANCOMYCIN 1000 MG/VIAL ONE (04:49)
[2020-09-01] MEDS ORDERED: NS IV 500 ML 500 ML ONE (04:53)
[2020-09-01] MEDS: KCL 20 MEQ TAB (K-DUR) PO SCH (06:10)
[2020-09-01] MEDS: MAGNESIUM 1 GM/100 ML IVPB 100 ML IV SCH (06:10)
[2020-09-01] MEDS: POTASSIUM CL 10MEQ/50ML IVPB 50 ML IV SCH (06:10)
[2020-09-01 06:59] LABS: ALBUMIN 3.2 GM/DL (3.2-4.5)
[2020-09-01 07:02] LABS: TOTAL PROTEIN 7.7 GM/DL (6.4-8.2)
[2020-09-01 07:03] LABS: BILIRUBIN,TOTAL 0.5 MG/DL (0.1-1.0)
[2020-09-01 07:07] LABS: BILIRUBIN,DIRECT 0.4 MG/DL (0.0-0.3); BILIRUBIN,INDIRECT 0.1 MG/DL
[2020-09-01] MEDS: RT-ALBUTEROL INHALER HFA (VENTOLIN HFA) 18 GM IH SCH ×5 (07:11→22:08)
[2020-09-01] MEDS: PIPERACILLIN/TAZOBACTAM (BULK) 4.5 GM in NS (IVPB) 100 ML IV SCH ×3 (08:17→20:31)
[2020-09-01] MEDS: ENOXAPARIN 40 MG/0.4 ML (LOVENOX) SYR SC SCH ×2 (08:22→20:30)
[2020-09-01] MEDS ORDERED: NS 100 ML (IVPB) BAG IV ONE (09:00)
[2020-09-01] MEDS ORDERED: HOLD METFORMIN - RECEIVED CONTRAST 20 ML VIAL IV SCH (09:00)
[2020-09-01] MEDS ORDERED: IOHEXOL 350 MG/ML 100 ML (OMNIPAQUE 350) VIAL IV ONE (09:00)
--- NOTE | 2020-09-01 10:16 | Diagnostic Imaging Report ---
CT CHEST W TECHNIQUE: Multiple contiguous axial images were obtained through the chest with the use of intravenous contrast. All CT scans use one or more of the following dose optimizing techniques: automated exposure control, MA and/or KvP adjustment based on a patient size and exam type, or iterative reconstruction. INDICATION: Abnormal chest x-ray, shortness of air. COMPARISON: Chest radiograph of 08/31/2020 FINDINGS: Lungs and airway: No endoluminal nodule within the trachea. Heterogeneous consolidations in the right lower lobe are likely due to a combination of atelectasis and pneumonia. Patchy consolidations are also present in the left lung base. Scattered groundglass opacities in the right middle lobe are noted. Pleura: Small to moderate-sized loculated right pleural effusion is present with at least 2 separate collections. No left pleural effusion. Heart and mediastinum: Thyroid is normal. No supraclavicular or axillary lymphadenopathy. No mediastinal or hilar lymphadenopathy. Borderline enlarged right hilar and lower right paratracheal lymph nodes are likely reactive in nature. Heart is normal in size without pericardial effusion. Upper abdomen: Cholelithiasis. Musculoskeletal: No worrisome focal osseous lesion. IMPRESSION: 1. Multifocal consolidations in the lung bases are likely due to multifocal pneumonia. 2. Loculated [id number] right pleural effusion is likely parapneumonic effusion versus potential empyema. Dictated by: Dictated on workstation # [id number]
--- NOTE | 2020-09-01 11:03 | History & Physical-Hospitalist ---
History of Present Illness HPI/Chief Complaint CC: Septic shock HPI: This is a very debilitated fdc patient of [facility] who presented to the ER with acute illness. Dyspnea was reported at the NH and fever of 101.6 and negative COVID swab Wednesday was negative. Patient was dx with PNA and dx with septic shock. Patient is currently sleeping but very chronically ill and andrade and ashen. Patient is a DNR. Dr Childs consulted for right sided effusion vs. empyema. Source: RN/MD Exam Limitations: clinical condition Date Seen 09/01/20 Time Seen by a Provider: 11:15 Attending Physician Tyra Foley DO [facility], [facility] Referring Physician Date of Admission Aug 31, 2020 at 23:36 Home Medications & Allergies Home Medications Reviewed patient Home Medication Reconciliation performed by pharmacy medication reconciliations sprinkler repair technician and/or nursing. Patients Allergies have been reviewed. Allergies Allergies Coded Allergies No Known Drug Allergies (Unverified01/03/19) Past Xecxceo-Yqbbsy-Yamojb Hx Past Med/Social Hx: Reviewed Nursing Past Med/Soc Hx, Reviewed and Corrections made Patient Social History Marrital Status: single Employed/Student: retired Alcohol Use: Denies Use Recreational Drug Use: No Smoking Status: Never a Smoker Recent Foreign Travel: No Contact w/other who traveled: No Recent Hopitalizations: No Recent Infectious Disease Expo: No Immunizations Up To Date Tetanus Booster (TDap): More than 5yrs Date of Pneumonia Vaccine: Mar 21, 2011 Date of Influenza Vaccine: Mar 31, 2018 Seasonal Allergies Seasonal Allergies: No Past Medical History Respiratory: Pneumonia Cardiac: High Cholesterol, Hypertension Neurological: Dementia Reproductive: No Gastrointestinal: Chronic Constipation Musculoskeletal: Arthritis Endocrine: Diabetes, Non-Insulin dep HEENT: Cataract Loss of Vision: Bilateral Hearing Impairment: Hard of Hearing, Bilateral Hearing Aide History of Blood Disorders: No Family History Cardiovascular disease 19 MOTHER (CHF) Diabetes mellitus 19 MOTHER Prostate cancer 19 FATHER Heart Disease, Cancer, Diabetes, Hypertension Review of Systems Constitutional: see HPI, fever, malaise, weakness Physical Exam Physical Exam Vital Signs Vital Signs - First Documented 08/31/20 09/01/20 21:25 01:15 Temp 37.2 Pulse 101 Resp 27 B/P (MAP) 89/61 (70) Pulse Ox 90 O2 Delivery Nasal Cannula O2 Flow Rate 5.00 FiO2 60 Capillary Refill : Less Than 3 Seconds Height, Weight, BMI Height: 6'2.00" Weight: 324lbs. 3.0oz. [id number]; 41.30 BMI Method:Stated General Appearance: No Apparent Distress, Chronically ill Eyes: Right Eye Normal Inspection, Right Eye PERRL HEENT: PERRL/EOMI, Normal ENT Inspection, Pharynx Normal, Moist Mucous M embranes Neck: Full Range of Motion, Normal Inspection, Non Tender Respiratory: Chest Non Tender, Lungs Clear, Normal Breath Sounds, No Accessory Muscle Use, No Respiratory Distress Cardiovascular: Regular Rate, Rhythm, No Edema, No Gallop, No JVD, No Murmur, Normal Peripheral Pulses Gastrointestinal: Normal Bowel Sounds, No Organomegaly, No Pulsatile Mass, Non Tender, Soft Back: Normal Inspection, No CVA Tenderness, No Vertebral Tenderness Extremity: Normal Capillary Refill, Normal Inspection, Normal Range of Motion, Non Tender, No Calf Tenderness, No Pedal Edema Neurologic/Psychiatric: Alert, No Motor/Sensory Deficits, Depressed Affect, Disoriented Skin: Normal Color, Warm/Dry Lymphatic: No Adenopathy Results Results/Procedures Labs Laboratory Tests 08/31/20 21:30 09/01/20 03:40 Patient resulted labs reviewed. Assessment/Plan Admission Diagnosis Assessment: Septic shock PNA Right sided pleural effusion vs. empyema DM Dementia Plan: Abx IVF Monitor closely Admission Status: Inpatient Order (span 2 midnights) Reason for Inpatient Admission: pna Diagnosis/Problems Diagnosis/Problems (1) Septic shock (2) Respiratory failure Status: Acute Qualifiers: Chronicity: acute Respiratory failure complication: hypoxia Qualified Codes: J96.01 - Acute respiratory failure with hypoxia (3) Pneumonia Qualifiers: Pneumonia type: due to unspecified organism Laterality: right Lung location: unspecified part of lung Qualified Codes: J18.9 - Pneumonia, unspecified organism (4) Hypertension Status: Chronic (5) Diabetes mellitus, type 2 Status: Chronic (6) Debility Status: Chronic (7) Dementia Status: Chronic TYRA FOLEY DO Sep 01, 2020 11:03
[2020-09-01] MEDS: VANCOMYCIN INJECTION 2,000 MG in NS IV 500 ML 500 ML IV SCH (11:37)
--- NOTE | 2020-09-01 12:57 | Consultation-Cardiology ---
HPI-Cardiology Cardiology Consultation Date of Consultation 09/01/20 Date of Admission Time Seen by Provider: 12:52 Indication: shortness of breath HPI 79-year-old gentleman, [facility] resident admitted for increasing shortness of breath, he was having fever, has been treated for pneumonia recently. Continue to deteriorate, workup showed right lower lobe pneumonia and small to moderate size right pleural effusion. On my evaluation he was lethargic, not sure why he is in the hospital. Denied any chest pain, still having shortness of breath, blood pressure is better. Home Medications & Allergies Allergies: Coded Allergies: No Known Drug Allergies (Unverified , 01/03/19) Home Medication List Reviewed: Yes QTC-Gwqssz-Qeydwi Hx Patient Social History Recreational Drug Use: No Smoking Status: Never a Smoker Recent Hopitalizations: No Immunizations Up To Date Tetanus Booster (TDap): More than 5yrs Date of Pneumonia Vaccine: Mar 21, 2011 Date of Influenza Vaccine: Mar 31, 2018 Past Medical History Discussed below Family Medical History Significant Family History: Heart Disease, Cancer, Diabetes, Hypertension Family History: Cardiovascular disease 19 MOTHER (CHF) Diabetes mellitus 19 MOTHER Prostate cancer 19 FATHER Review of Systems-General Review of Systems Constitutional: see HPI, malaise, weakness, other (unable to provide review of system other than fatigue and shortness of breath) EENTM: no symptoms reported Respiratory: see HPI, dyspnea on exertion Cardiovascular: no symptoms reported Gastrointestinal: no symptoms reported Genitourinary: no symptoms reported Musculoskeletal: no symptoms reported Skin: no symptoms reported Psychiatric/Neurological: No Symptoms Reported Reviewed Test Results Reviewed Test Results Lab Laboratory Tests Test 08/31/20 21:30 08/31/20 21:37 09/01/20 00:10 09/01/20 01:10 Range/Units White Blood Count 15.9 H 4.3-11.0 10^3/uL Red Blood Count 4.77 4.30-5.52 10^6/uL Hemoglobin 13.2 L 13.3-17.7 g/dL Hematocrit 43 40-54 % Mean Corpuscular Volume 91 80-99 fL Mean Corpuscular Hemoglobin 28 25-34 pg Mean Corpuscular Hemoglobin Concent 31 L 32-36 g/dL Red Cell Distribution Width 14.7 H 10.0-14.5 % Platelet Count 463 H 130-400 10^3/uL Mean Platelet Volume 9.6 9.0-12.2 fL Immature Granulocyte % (Auto) 0 % Neutrophils (%) (Auto) 92 H 42-75 % Lymphocytes (%) (Auto) 2 L 12-44 % Monocytes (%) (Auto) 5 0-12 % Eosinophils (%) (Auto) 0 0-10 % Basophils (%) (Auto) 0 0-10 % Neutrophils # (Auto) 14.6 H 1.8-7.8 10^3/uL Lymphocytes # (Auto) 0.4 L 1.0-4.0 10^3/uL Monocytes # (Auto) 0.8 0.0-1.0 10^3/uL Eosinophils # (Auto) 0.0 0.0-0.3 10^3/uL Basophils # (Auto) 0.1 0.0-0.1 10^3/uL Immature Granulocyte # (Auto) 0.1 0.0-0.1 10^3/uL Neutrophils % (Manual) 89 % Lymphocytes % (Manual) 5 % Monocytes % (Manual) 6 % Blood Morphology Comment NORMAL Prothrombin Time 17.3 H 12.2-14.7 SEC INR Comment 1.4 0.8-1.4 Activated Partial Thromboplast Time 42 H 24-35 SEC Sodium Level 136 135-145 MMOL/L Potassium Level 4.8 3.6-5.0 MMOL/L Chloride Level 97 L 98-107 MMOL/L Carbon Dioxide Level 26 21-32 MMOL/L Anion Gap 13 5-14 MMOL/L Blood Urea Nitrogen 12 7-18 MG/DL Creatinine 0.74 0.60-1.30 MG/DL Estimat Glomerular Filtration Rate > 60 BUN/Creatinine Ratio 16 Glucose Level 158 H 70-105 MG/DL Lactic Acid Level 1.58 0.50-2.00 MMOL/L Calcium Level 9.1 8.5-10.1 MG/DL Corrected Calcium 9.8 8.5-10.1 MG/DL Total Bilirubin 0.5 0.1-1.0 MG/DL Aspartate Amino Transf (AST/SGOT) 45 H 5-34 U/L Alanine Aminotransferase (ALT/SGPT) 49 0-55 U/L Alkaline Phosphatase 109 40-136 U/L Lactate Dehydrogenase 184 125-220 U/L C-Reactive Protein High Sensitivity 24.51 H 0.00-0.50 MG/DL B-Type Natriuretic Peptide 79.1 <100.0 PG/ML Total Protein 7.7 6.4-8.2 GM/DL Albumin 3.1 L 3.2-4.5 GM/DL Procalcitonin 0.38 H <0.10 NG/ML Coronavirus 2019 ([facility]) Negative Negative Urine Color YELLOW Urine Clarity CLEAR Urine pH 5.5 5-9 Urine Specific [place] 1.010 L 1.016-1.022 Urine Protein NEGATIVE NEGATIVE Urine Glucose (UA) 3+ H NEGATIVE Urine Ketones NEGATIVE NEGATIVE Urine Nitrite NEGATIVE NEGATIVE Urine Bilirubin NEGATIVE NEGATIVE Urine Urobilinogen 0.2 < = 1.0 MG/DL Urine Leukocyte Esterase NEGATIVE NEGATIVE Urine RBC (Auto) NEGATIVE NEGATIVE Urine RBC NONE /HPF Urine WBC NONE /HPF Urine Squamous Epithelial Cells RARE /HPF Urine Crystals NONE /LPF Urine Bacteria TRACE /HPF Urine Casts NONE /LPF Urine Mucus SMALL H /LPF Urine Culture Indicated NO Blood Gas Puncture Site L RAD Blood Gas Patient Temperature 36.2 Arterial Blood pH 7.40 7.37-7.43 Arterial Blood Partial Pressure CO2 46 H 35-45 MMHG Arterial Blood Partial Pressure O2 129 H 79-93 MMHG Arterial Blood HCO3 28 H 23-27 MMOL/L Arterial Blood Total CO2 29.5 21.0-31.0 MMOL/L Arterial Blood Oxygen Saturation 99 94-100 % Arterial Blood Base Excess 3.5 H -2.5-2.5 MMOL/L Chris Test YES-POS Blood Gas Ventilator Setting NO Blood Gas Inspired Oxygen 60% BIPAP Test 09/01/20 03:40 Range/Units White Blood Count 15.2 H 4.3-11.0 10^3/uL Red Blood Count 3.96 L 4.30-5.52 10^6/uL Hemoglobin 11.2 L 13.3-17.7 g/dL Hematocrit 36 L 40-54 % Mean Corpuscular Volume 91 80-99 fL Mean Corpuscular Hemoglobin 28 25-34 pg Mean Corpuscular Hemoglobin Concent 31 L 32-36 g/dL Red Cell Distribution Width 14.7 H 10.0-14.5 % Platelet Count 425 H 130-400 10^3/uL Mean Platelet Volume 10.3 9.0-12.2 fL Immature Granulocyte % (Auto) 1 % Neutrophils (%) (Auto) 86 H 42-75 % Lymphocytes (%) (Auto) 5 L 12-44 % Monocytes (%) (Auto) 8 0-12 % Eosinophils (%) (Auto) 0 0-10 % Basophils (%) (Auto) 0 0-10 % Neutrophils # (Auto) 13.1 H 1.8-7.8 10^3/uL Lymphocytes # (Auto) 0.8 L 1.0-4.0 10^3/uL Monocytes # (Auto) 1.2 H 0.0-1.0 10^3/uL Eosinophils # (Auto) 0.0 0.0-0.3 10^3/uL Basophils # (Auto) 0.1 0.0-0.1 10^3/uL Immature Granulocyte # (Auto) 0.1 0.0-0.1 10^3/uL Sodium Level 137 135-145 MMOL/L Potassium Level 4.4 3.6-5.0 MMOL/L Chloride Level 101 98-107 MMOL/L Carbon Dioxide Level 25 21-32 MMOL/L Anion Gap 11 5-14 MMOL/L Blood Urea Nitrogen 13 7-18 MG/DL Creatinine 0.66 0.60-1.30 MG/DL Estimat Glomerular Filtration Rate > 60 BUN/Creatinine Ratio 20 Glucose Level 172 H 70-105 MG/DL Calcium Level 8.8 8.5-10.1 MG/DL Phosphorus Level 4.2 2.3-4.7 MG/DL Magnesium Level 1.9 1.6-2.4 MG/DL Total Bilirubin 0.5 0.1-1.0 MG/DL Direct Bilirubin 0.4 H 0.0-0.3 MG/DL Indirect Bilirubin 0.1 MG/DL Aspartate Amino Transf (AST/SGOT) 46 H 5-34 U/L Alanine Aminotransferase (ALT/SGPT) 49 0-55 U/L Alkaline Phosphatase 108 40-136 U/L Total Protein 7.7 6.4-8.2 GM/DL Albumin 3.2 3.2-4.5 GM/DL Procalcitonin 0.39 H <0.10 NG/ML Physical Exam Physical Exam Vital Signs Vital Signs - First Documented 08/31/20 09/01/20 21:25 01:15 Temp 37.2 Pulse 101 Resp 27 B/P (MAP) 89/61 (70) Pulse Ox 90 O2 Delivery Nasal Cannula O2 Flow Rate 5.00 FiO2 60 Capillary Refill : Less Than 3 Seconds Height, Weight, BMI Height: 6'2.00" Weight: 324lbs. 3.0oz. 147.135422lb; 41.30 BMI Method:Stated General Appearance: No Apparent Distress, WD/WN HEENT: PERRL/EOMI, Normal ENT Inspection Neck: Normal Inspection Respiratory: No Respiratory Distress, Crackles (In the bases), Decreased Breath Sounds, Other (Shallow respirations with overall decreased air movement) Cardiovascular: Regular Rate, Rhythm, No Edema, No Murmur Gastrointestinal: Normal Bowel Sounds, Non Tender, Soft Extremity: Normal Inspection, No Pedal Edema Neurologic/Psychiatric: Alert, Oriented x3, No Motor/Sensory Deficits, Normal Mood/Affect, post splitter II-XII Norm as Tested A/P-Cardiology Admission Diagnosis Right lower lobe pneumonia Pleural effusion Hypotension Coronary artery disease Assessment/Plan Right lower lobe pneumonia, acute respiratory insufficiency, started on antibiotics, managed by primary care team Right-sided pleural effusion, questionable empyema, started on antibiotic and Dr. Childs was consulted. Continue to monitor Sepsis, hypotension, history of hypertension, blood pressure is better at this time. Continue to monitor blood pressure Coronary artery disease, history of cardiac catheterization in 2012, nonobstructive coronary artery disease, no chest pain was reported at this time Diabetes mellitus, followed and managed by primary care physician History of pannus cellulitis, left leg ulcer with cellulitis. Currently stable Dementia VALENTINA STRATTON MD Sep 01, 2020 12:57
--- NOTE | 2020-09-01 17:16 | Consultation - Surgery ---
History of Present Illness History of Present Illness Patient Consulted On(ivelisse/time) 09/01/20 12:11 Date Seen by Provider: Sep 01, 2020 Time Seen by Provider: 12:11 Reason for Visit: shortness of breath History of Present Illness Onset requested by Dr. Foley for right pleural effusion possible empyema Patient is a 79-year-old male poor historian was having increasing shortness of breath and had fever. Patient was transferred to the hospital by EMS for further evaluation. Patient was in long term. Patient states that he fell out of his wheelchair approximately 2 weeks ago and then began having increasing shortness of breath. Nothing really seems to make things better. Nothing was seems to make it worse. Patient had fever as well. He denies any abdominal pain. He has no other complaints. Patient not providing much other information at this time. He had a CT scan which demonstrated multiloculated areas consistent with pneumonia and small to moderate effusion versus empyema right side. Allergies and Home Medications Allergies Coded Allergies: No Known Drug Allergies (Unverified , 01/03/19) Home Medications Acetaminophen 325 Mg Tablet, 650 MG PO Q4H PRN for PAIN-MILD, (Reported) TAKES 2 (325MG) TABLETS Acetaminophen 325 Mg Tablet, 650 MG PO DAILY, (Reported) Amlodipine Besylate 5 Mg Tablet, 5 MG PO DAILY, (Reported) HOLD IF SBP<90, PULSE <60 Aspirin 81 Mg Tablet.dr, 81 MG PO DAILY, (Reported) Atorvastatin Calcium 10 Mg Tablet, 10 MG PO 1500, (Reported) Benzocaine/Menthol 1 Each Lozenge, 1 ANNIE MM UD PRN for COUGH, (Reported) D-Methorphan/Acetamin/Doxylamn 236 Ml Liquid, 30 ML PO DAILY PRN for COUGH, (Reported) Dextran 70/Hypromellose 15 Ml Drops, 1 DROP OU BID, (Reported) Docusate Sodium 100 Mg Capsule, 100 MG PO BID, (Reported) Doxycycline Hyclate 100 Mg Tablet, 100 MG PO BID Prescribed by: PATRICK MACK on 01/09/19 1149 Enalapril Maleate 10 Mg Tablet, 10 MG PO BID, (Reported) HOLD IF SBP <90 PULSE <60 Finasteride 5 Mg Tablet, 5 MG PO DAILY, (Reported) Furosemide 20 Mg Tablet, 20 MG PO DAILY, (Reported) Gabapentin 300 Mg Capsule, 300 MG PO BID, (Reported) Hydrocodone Bit/Acetaminophen 1 Tab Tab, 1 TAB PO Q4H PRN for PAIN-MODERATE TO SEVERE Prescribed by: PATRICK MACK on 01/09/19 1341 Insulin Detemir 100 Unit/1 Ml Insuln.pen, 33 UNITS SC BID, (Reported) Insulin Lispro 100 Unit/1 Ml Vial, 22 UNITS SC TID, (Reported) Lactobacillus Acidophilus 1 Each Capsule, 1 CAP PO BID, (Reported) Loperamide HCl 2 Mg Capsule, PO UD PRN for LOOSE STOOLS, (Reported) TAKE 2 CAPSULES AFTER FIRST LOOSE STOOL THEN TAKE 1 CAPSULE AFTER EACH SUBSEUENT LOOSE STOOL. MAX 4 CAPS IN 24 HOURS Magnesium Hydroxide 400 Mg/5 Ml Oral.susp, 30 ML PO DAILY PRN for CONSTIPATION- 7TH LINE, (Reported) Menthol 118 Ml Gel..ml., TP Q6H PRN for SHOULDER PAIN, (Reported) Metformin HCl 1,000 Mg Tablet, 1,000 MG PO BID, (Reported) Metoprolol Tartrate 50 Mg Tablet, 50 MG PO BID, (Reported) Mirabegron 50 Mg Tab.er.24h, 50 MG PO DAILY, (Reported) Nystatin 15 Gm Cream..g., 0 GM TP TID Apply sparingly under abdominal panus and jannet-area Prescribed by: PATRICK MACK on 01/09/19 1343 Phenyleph/Pramoxin/Glycr/W.pet 51 Gm Cream..g., RC Q6H PRN for HEMORRHOIDS, (Reported) Polyethylene Glycol 3350 17 Gm Powd.pack, 17 GM PO Q12H PRN for CONSTIPATION-2ND LINE, (Reported) Propylene Glycol/Peg 400 15 Ml Drops, 1 DROP OU Q4H PRN for DRY EYES, (Reported) Tamsulosin HCl 0.4 Mg Cap, 0.4 MG PO 1730, (Reported) Zinc Oxide 28 Gm Oint, TP Q8H PRN for RASH/REDNESS IN ABDOMINAL FOLD, (Reported) Patient Home Medication List Home Medication List Reviewed: Yes Past Nfcsfln-Onedfa-Tjvirh Hx Patient Social History Smoking Status: Never a Smoker Recent Hopitalizations: No Immunizations Up To Date Tetanus Booster (TDap): More than 5yrs Date of Pneumonia Vaccine: Mar 21, 2011 Date of Influenza Vaccine: Mar 31, 2018 Seasonal Allergies Seasonal Allergies: No Surgeries History of Surgeries: Yes (surgical debridement of chronic wounds) Respiratory History of Respiratory Disorde: Yes Respiratory Disorders: Pneumonia Cardiovascular History of Cardiac Disorders: Yes Cardiac Disorders: High Cholesterol, Hypertension Neurological History of Neurological Disord: Yes (History of foot drop) Neurological Disorders: Dementia Reproductive System Hx Reproductive Disorders: No Genitourinary History of Genitourinary Disor: Yes (INCONTINENT) Gastrointestinal History of Gastrointestinal Di: Yes Gastrointestinal Disorders: Chronic Constipation Musculoskeletal History of Musculoskeletal Dis: Yes (chronic debility, does not walk) Musculoskeletal Disorders: Arthritis Endocrine History of Endocrine Disorders: Yes Endocrine Disorders: Diabetes, Non-Insulin dep HEENT History of HEENT Disorders: Yes HEENT Disorders: Cataract Loss of Vision: Bilateral Hearing Impairment: Hard of Hearing, Bilateral Hearing Aide Cancer History of Cancer: No Psychosocial History of Psychiatric Problem: No Integumentary History of Skin or Integumenta: Yes (MULTIPLE WOUNDS) Blood Transfusions History of Blood Disorders: No Reviewed Nursing Assessment Reviewed/Agree w Nursing PMH: Yes Family Medical History Significant Family History: Heart Disease, Cancer, Diabetes, Hypertension Family Medial History: Cardiovascular disease 19 MOTHER (CHF) Diabetes mellitus 19 MOTHER Prostate cancer 19 FATHER Review of Systems-General ROS-Unable to Obtain: Patient unwilling to provide much information Physical Exam-General Problems Physical Exam Vital Signs Vital Signs - First Documented 08/31/20 09/01/20 21:25 01:15 Temp 37.2 Pulse 101 Resp 27 B/P (MAP) 89/61 (70) Pulse Ox 90 O2 Delivery Nasal Cannula O2 Flow Rate 5.00 FiO2 60 Capillary Refill : Less Than 3 Seconds General Appearance: no apparent distress (Lying in bed) HEENT: PERRL/EOMI, normal ENT inspection Neck: non-tender, supple Respiratory: chest non-tender, decreased breath sounds Cardiovascular: regular rate, rhythm, no JVD Gastrointestinal: non tender, soft, no organomegaly, no pulsatile mass Rectal: deferred Back: normal inspection, no CVA tenderness Extremities: normal range of motion, non-tender, normal inspection 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, alert, normal mood/affect, oriented x 3 Skin: normal color, warm/dry Lymphatic: no adenopathy Data Review Labs Laboratory Tests 08/31/20 21:30: White Blood Count 15.9H, Red Blood Count 4.77, Hemoglobin 13.2L, Hematocrit 43, Mean Corpuscular Volume 91, Mean Corpuscular Hemoglobin 28, Mean Corpuscular Hemoglobin Concent 31L, Red Cell Distribution Width 14.7H, Platelet Count 463H, Mean Platelet Volume 9.6, Immature Granulocyte % (Auto) 0, Neutrophils (%) (Auto) 92H, Lymphocytes (%) (Auto) 2L, Monocytes (%) (Auto) 5, Eosinophils (%) (Auto) 0, Basophils (%) (Auto) 0, Neutrophils # (Auto) 14.6H, Lymphocytes # (Auto) 0.4L, Monocytes # (Auto) 0.8, Eosinophils # (Auto) 0.0, Basophils # (Auto) 0.1, Immature Granulocyte # (Auto) 0.1, Neutrophils % (Manual) 89, Lymphocytes % (Manual) 5, Monocytes % (Manual) 6, Blood Morphology Comment NORMAL, Prothrombin Time 17.3H, INR Comment 1.4, Activated Partial Thromboplast Time 42H, Sodium Level 136, Potassium Level 4.8, Chloride Level 97L, Carbon Dioxide Level 26, Anion Gap 13, Blood Urea Nitrogen 12, Creatinine 0.74, Estimat Glomerular Filtration Rate > 60, BUN/Creatinine Ratio 16, Glucose Level 158H, Lactic Acid Level 1.58, Calcium Level 9.1, Corrected Calcium 9.8, Total Bilirubin 0.5, Aspartate Amino Transf (AST/SGOT) 45H, Alanine Aminotransferase (ALT/SGPT) 49, Alkaline Phosphatase 109, Lactate Dehydrogenase 184, C-Reactive Protein High Sensitivity 24.51H, B-Type Natriuretic Peptide 79.1, Total Protein 7.7, Albumin 3.1L, Procalcitonin 0.38H 08/31/20 21:37: Coronavirus 2019 ([facility]) Negative 09/01/20 00:10: 09/01/20 01:10: Urine Color YELLOW, Urine Clarity CLEAR, Urine pH 5.5, Urine Specific [place] 1.010L, Urine Protein NEGATIVE, Urine Glucose (UA) 3+H, Urine Ketones NEGATIVE, Urine Nitrite NEGATIVE, Urine Bilirubin NEGATIVE, Urine Urobilinogen 0.2, Urine Leukocyte Esterase NEGATIVE, Urine RBC (Auto) NEGATIVE, Urine RBC NONE, Urine WBC NONE, Urine Squamous Epithelial Cells RARE, Urine Crystals NONE, Urine Ba cteria TRACE, Urine Casts NONE, Urine Mucus SMALLH, Urine Culture Indicated NO, Blood Gas Puncture Site L RAD, Blood Gas Patient Temperature 36.2, Arterial Blood pH 7.40, Arterial Blood Partial Pressure CO2 46H, Arterial Blood Partial Pressure O2 129H, Arterial Blood HCO3 28H, Arterial Blood Total CO2 29.5, Arterial Blood Oxygen Saturation 99, Arterial Blood Base Excess 3.5H, Chris Test YES-POS, Blood Gas Ventilator Setting NO, Blood Gas Inspired Oxygen 60% BIPAP 09/01/20 03:40: White Blood Count 15.2H, Red Blood Count 3.96L, Hemoglobin 11.2L, Hematocrit 36L , Mean Corpuscular Volume 91, Mean Corpuscular Hemoglobin 28, Mean Corpuscular Hemoglobin Concent 31L, Red Cell Distribution Width 14.7H, Platelet Count 425H, Mean Platelet Volume 10.3, Immature Granulocyte % (Auto) 1, Neutrophils (%) (Auto) 86H, Lymphocytes (%) (Auto) 5L, Monocytes (%) (Auto) 8, Eosinophils (%) (Auto) 0, Basophils (%) (Auto) 0, Neutrophils # (Auto) 13.1H, Lymphocytes # (Auto) 0.8L, Monocytes # (Auto) 1.2H, Eosinophils # (Auto) 0.0, Basophils # (Auto) 0.1, Immature Granulocyte # (Auto) 0.1, Sodium Level 137, Potassium Level 4.4, Chloride Level 101, Carbon Dioxide Level 25, Anion Gap 11, Blood Urea Nitrogen 13, Creatinine 0.66, Estimat Glomerular Filtration Rate > 60, BUN/Creatinine Ratio 20, Glucose Level 172H, Calcium Level 8.8, Phosphorus Level 4.2, Magnesium Level 1.9, Total Bilirubin 0.5, Direct Bilirubin 0.4H, Indirect Bilirubin 0.1, Aspartate Amino Transf (AST/SGOT) 46H, Alanine Aminotransferase (ALT/SGPT) 49, Alkaline Phosphatase 108, Total Protein 7.7, Albumin 3.2, Procalcitonin 0.39H Microbiology 08/31/20 Influenza Types A,B Antigen (YVON) - Final, Complete Assessment/Plan Assessment/Plan Assessment/Plan Right lower lobe pneumonia Right chest effusion versus empyema small to moderate morbid obesity Severe sepsis Shortness of breath Continue current medical management. Continue aggressive pulmonary treatment, IV antibiotics if worsening of the effusion/empyema will consider interventional radiology for drainage if not possible patient may need surgical intervention Clear liquid diet Repeat chest x-ray in a.m. PUI await results for Covid. DEEDEE SYLVESTER DO Sep 01, 2020 17:16
[2020-09-01 22:14] VITALS: BP 92/66
[2020-09-02] MEDS: VANCOMYCIN INJECTION 2,000 MG in NS IV 500 ML 500 ML IV SCH ×2 (00:33→11:44)
[2020-09-02 02:29] VITALS: BP 92/66
[2020-09-02] MEDS: RT-ALBUTEROL INHALER HFA (VENTOLIN HFA) 18 GM IH SCH ×6 (02:29→22:51)
[2020-09-02] MEDS: VASOPRESSIN INJECTION 20 UNIT in NS (IVPB) 100 ML IV SCH ×3 (04:06→19:24)
[2020-09-02] MEDS: NOREPINEPHRINE 8 MG/250 ML 250 ML IV SCH ×3 (04:07→23:58)
[2020-09-02 04:14] LABS: BASOPHILS # (AUTO) 0.1 10^3/uL (0.0-0.1); BASOPHILS % (AUTO) 1 % (0-10); EOSINOPHILS # (AUTO) 0.3 10^3/uL (0.0-0.3); EOSINOPHILS % (AUTO) 3 % (0-10); HEMATOCRIT 35 % (40-54); HEMOGLOBIN 10.5 g/dL (13.3-17.7); LYMPHOCYTES # (AUTO) 0.4 10^3/uL (1.0-4.0); LYMPHOCYTES % (AUTO) 5 % (12-44); MEAN CORPUSCULAR HEMOGLOBIN 28 pg (25-34); MEAN CORPUSCULAR HGB CONC 30 g/dL (32-36); MEAN CORPUSCULAR VOLUME 92 fL (80-99); MEAN PLATELET VOLUME 10.1 fL (9.0-12.2); MONOCYTES # (AUTO) 0.8 10^3/uL (0.0-1.0); MONOCYTES % (AUTO) 9 % (0-12); NEUTROPHILS % (AUTO) 82 % (42-75); PLATELET COUNT 389 10^3/uL (130-400); WHITE BLOOD COUNT 8.6 10^3/uL (4.3-11.0)
[2020-09-02 04:42] LABS: BUN/CREATININE RATIO 15; CALCIUM 8.5 MG/DL (8.5-10.1); CARBON DIOXIDE 23 MMOL/L (21-32); CHLORIDE 105 MMOL/L (98-107); GFR ESTIMATED > 60; GLUCOSE 116 MG/DL (70-105); MAGNESIUM 1.8 MG/DL (1.6-2.4); PHOSPHORUS 2.9 MG/DL (2.3-4.7); SODIUM 141 MMOL/L (135-145)
[2020-09-02] MEDS: AZITHROMYCIN INJECTION 500 MG in NS (IVPB) 250 ML IV SCH (04:59)
[2020-09-02] MEDS: POTASSIUM CL 10MEQ/50ML IVPB 50 ML IV SCH (04:59)
[2020-09-02] MEDS: MAGNESIUM 1 GM/100 ML IVPB 100 ML IV SCH (05:00)
[2020-09-02] MEDS: KCL 20 MEQ TAB (K-DUR) PO SCH (05:00)
[2020-09-02] MEDS: PIPERACILLIN/TAZOBACTAM (BULK) 4.5 GM in NS (IVPB) 100 ML IV SCH ×3 (06:15→20:06)
[2020-09-02] MEDS: LACTATED RINGERS 1,000 ML IV SCH ×3 (06:21→16:09)
--- NOTE | 2020-09-02 07:15 | Diagnostic Imaging Report ---
Indication: Respiratory distress Comparison: 08/31/2020 Findings: Single view of the chest demonstrates stable opacity in the right hemithorax. The heart remains enlarged. Left lung remains well aerated. There is no pneumothorax. No overt pulmonary edema. Impression: Unchanged aeration of the lungs. Dictated by: Dictated on workstation # [id number]
--- NOTE | 2020-09-02 07:34 | Progress Note - Surgery ---
ALAN YIP MED STUDENT 09/02/20 0734: Subjective Date Seen by a Provider: Sep 02, 2020 Time Seen by a Provider: 07:10 Subjective/Events-last exam Patient awake upon entering room. Disoriented to place, time, and situation. Able to grasp hands bilaterally and move all four extremities. He denies chest pain, SOB, headache, nausea, and abdominal pain. He is able to follow simple one step commands at this time, but remains a poor historian and is confused. VSS per monitor. Review of Systems General: No Chills, No Night Sweats HEENT: No Head Aches, No Visual Changes Pulmonary: No Dyspnea, No Cough Cardiovascular: No: Chest Pain, Palpitations Gastrointestinal: No: Nausea, Vomiting, Abdominal Pain Genitourinary: No Dysuria, No Frequency; Other (hassan present) Musculoskeletal: No: neck pain, back pain Neurological: No: Weakness, Numbness Focused Exam Lactate Level 08/31/20 21:30: Lactic Acid Level 1.58 Objective Exam Vital Signs Date Time Temp Pulse Resp B/P (MAP) Pulse Ox O2 Delivery O2 Flow Rate FiO2 09/02/20 06:59 96 High Flow N/C 4.00 09/02/20 06:17 Nasal Cannula 4.00 09/02/20 04:00 36.2 Nasal Cannula 6.00 09/02/20 04:00 Nasal Cannula 6.00 09/02/20 03:00 NIV Bilevel 40.00 09/02/20 02:29 80 23 98 40.00 09/02/20 01:00 84 09/02/20 00:36 NIV Bilevel 40.00 09/02/20 00:36 NIV Bilevel 40 09/02/20 00:13 37.2 09/02/20 00:00 87 134/63 (86) 98 NIV Bilevel 60.00 09/01/20 23:00 86 140/73 (95) 99 NIV Bilevel 60.00 09/01/20 22:14 93 23 93 30.00 09/01/20 22:00 111 137/67 (90) 98 High Flow N/C 4.00 09/01/20 21:00 81 125/59 (81) 92 High Flow N/C 4.00 09/01/20 20:00 High Flow N/C 4.00 09/01/20 20:00 95 160/68 (98) 93 High Flow N/C 4.00 09/01/20 19:00 94 09/01/20 19:00 36.4 92 High Flow N/C 4.00 09/01/20 19:00 94 149/68 (95) 95 High Flow N/C 4.00 09/01/20 18:24 90 4.00 09/01/20 18:00 91 153/70 (97) High Flow N/C 3.00 09/01/20 17:00 73 129/62 (84) 92 High Flow N/C 3.00 09/01/20 16:00 73 128/57 (80) 91 High Flow N/C 3.00 09/01/20 16:00 NIV Bilevel 3.00 09/01/20 15:00 77 127/57 (80) 92 High Flow N/C 3.00 09/01/20 14:49 95 3.00 09/01/20 14:00 86 139/64 (89) 92 High Flow N/C 3.00 09/01/20 13:00 75 123/57 (79) 93 High Flow N/C 3.00 09/01/20 12:36 70 09/01/20 12:00 81 146/68 (94) 93 High Flow N/C 3.00 09/01/20 12:00 NIV Bilevel 3.00 09/01/20 11:00 71 142/59 (86) 95 High Flow N/C 3.00 09/01/20 10:40 95 3.00 09/01/20 10:34 71 127/63 09/01/20 10:34 71 127/63 09/01/20 10:00 112 125/59 (81) 91 High Flow N/C 3.00 09/01/20 09:00 71 127/63 (84) 93 High Flow N/C 3.00 09/01/20 08:00 70 130/62 (84) 92 High Flow N/C 3.00 09/01/20 08:00 NIV Bilevel 3.00 I & O 09/02/20 07:00 Intake Total 4345 ml Output Total 3375 ml Balance 970 ml Capillary Refill : Less Than 3 Seconds General Appearance: No Apparent Distress, Chronically ill HEENT: PERRL/EOMI, Pharynx Normal Neck: Full Range of Motion, Normal Inspection, Non Tender Respiratory: Chest Non Tender, Lungs Clear, No Accessory Muscle Use, No Respiratory Distress, Decreased Breath Sounds; No Rhonci, No Wheezing Cardiovascular: Regular Rate, Rhythm, No Edema, No Murmur, Normal Peripheral Pulses Peripheral Pulses: 2+ Dorsalis Pedis (R), 2+ Left Dors-Pedis (L), 2+ Radial Pulses (R), 2+ Radial Pulses (L) Gastrointestinal: normal bowel sounds, non tender, soft, no organomegaly Extremity: Normal Capillary Refill, Normal Inspection, Non Tender, No Calf Tenderness Neurologic/Psychiatric: Alert, Depressed Affect, Disoriented (to place, time, and situation) Skin: Normal Color, Warm/Dry Lymphatic: No Adenopathy Results Lab Laboratory Tests 09/02/20 03:38: White Blood Count 8.6, Red Blood Count 3.79L, Hemoglobin 10.5L, Hematocrit 35L, Mean Corpuscular Volume 92, Mean Corpuscular Hemoglobin 28, Mean Corpuscular Hemoglobin Concent 30L, Red Cell Distribution Width 14.8H, Platelet Count 389, Mean Platelet Volume 10.1, Immature Granulocyte % (Auto) 0, Neutrophils (%) (Auto) 82H, Lymphocytes (%) (Auto) 5L, Monocytes (%) (Auto) 9, Eosinophils (%) (Auto) 3, Basophils (%) (Auto) 1, Neutrophils # (Auto) 7.0, Lymphocytes # (Auto) 0.4L, Monocytes # (Auto) 0.8, Eosinophils # (Auto) 0.3, Basophils # (Auto) 0.1, Immature Granulocyte # (Auto) 0.0, Sodium Level 141, Potassium Level 4.0, Chloride Level 105, Carbon Dioxide Level 23, Anion Gap 13, Blood Urea Nitrogen 9, Creatinine 0.60, Estimat Glomerular Filtration Rate > 60, BUN/Creatinine Ratio 15, Glucose Level 116H, Calcium Level 8.5, Phosphorus Level 2.9, Magnesium Level 1.8 Microbiology 09/01/20 MRSA Screen - Final, Complete MRSA not isolated 08/31/20 Blood Culture - Preliminary, Resulted No growth Assessment/Plan Assessment/Plan Assessment/Plan Right lower lobe pneumonia Right chest parapneumonic effusion versus empyema small to moderate Anemia- probably dilutional Morbid obesity Severe sepsis- Improving Shortness of breath Continue current medical management. Continue aggressive pulmonary treatment, IV antibiotics if worsening of the effusion/empyema will consider interventional radiology for drainage if not possible patient may need surgical intervention Clear liquid diet as tolerated Chest Xray this am shows stable opacity of right hemithorax, unchanged aeration of lungs compared to prior study COVID serologies negative Hgb trending down to 10.5 today, continue to monitor DEEDEE CHILDS DO 09/02/202103: Subjective Subjective/Events-last exam Not as confused when seen. patient breathing maybe a little better. Tolerating diet. chest x ray stable compared to yesterday. Objective Exam General Appearance: Chronically ill, Obese HEENT: PERRL/EOMI, Normal ENT Inspection Neck: Normal Inspection, Non Tender Respiratory: No Accessory Muscle Use, No Respiratory Distress, Crackles, Decreased Breath Sounds Cardiovascular: Regular Rate, Rhythm, No JVD Gastrointestinal: non tender, soft, no organomegaly Extremity: Normal Capillary Refill, Normal Inspection, Non Tender Neurologic/Psychiatric: Alert, Depressed Affect Skin: Normal Color, Warm/Dry Lymphatic: No Adenopathy Assessment/Plan Assessment/Plan Assessment/Plan Right lower lobe pneumonia Right chest parapneumonic effusion versus empyema small to moderate Anemia- probably dilutional Morbid obesity Severe sepsis- Improving Shortness of breath Continue current medical management. Continue aggressive pulmonary treatment, IV antibiotics if worsening of the effusion/empyema arranged interventional radiology for drainage if not possible patient may need surgical intervention Clear liquid diet as tolerated Chest Xray this am shows stable opacity of right hemithorax, unchanged aeration of lungs compared to prior study COVID serologies negative Hgb trending down to 10.5 today, continue to monitor Supervisory-Addendum Brief Verification & Attestation Participated in pt care: history, MDM, physical Personally performed: exam, history, MDM, supervision of care Care discussed with: Medical Student Procedures: n/a Results interpretation: Verified all documentation Verification and Attestation of Medical Student E/M Service A medical student performed and documented this service in my presence. I reviewed and verified all information documented by the medical student and made modifications to such information, when appropriate. I personally performed the physical exam and medical decision making. Deedee Childs, Sep 02, 2020,21:05 ALAN YIP MED STUDENT Sep 02, 2020 07:34 DEEDEE CHILDS DO Sep 02, 2020 21:04
[2020-09-02] MEDS: ENOXAPARIN 40 MG/0.4 ML (LOVENOX) SYR SC SCH ×2 (08:01→20:06)
--- NOTE | 2020-09-02 09:44 | Cardiology Progress Note ---
Subjective Date Seen by Provider: Sep 02, 2020 Time Seen by Provider: 09:43 Subjective/Events-last exam Patient is laying down in bed. Feeling better, breathing better Review of Systems General: No Chills, No Night Sweats, No Fatigue; Malaise; No Appetite, No Other HEENT: No Head Aches, No Visual Changes, No Eye Pain, No Ear Pain, No Dysphasia, No Sinus Congestion, No Post Nasal Drip, No Sore Throat, No Other Pulmonary: Dyspnea; No Cough, No Pleuritic Chest Pain, No Other Cardiovascular: No: Chest Pain, Palpitations, Orthopnea, Paroxysmal Noc. Dyspnea, Edema, Lt Headedness, Other Focused Exam Lactate Level 08/31/20 21:30: Lactic Acid Level 1.58 Objective-Cardiology Exam Last Set of Vital Signs Vital Signs 09/02/20 09/02/20 09/02/20 09/02/20 00:36 02:29 06:00 08:00 Pulse 79 Resp 23 B/P (MAP) 124/65 (84) Pulse Ox 93 O2 Delivery Nasal Cannula O2 Flow Rate 4.00 FiO2 40 Capillary Refill : Less Than 3 Seconds I&O Intake and Output 09/02/20 00:00 Intake Total 4855 ml Output Total 2825 ml Balance 2030 ml Intake Oral 1325 ml IV Total 3530 ml Output Urine Total 2825 ml Daily Weight Change No General: Alert, Oriented X3, Cooperative HEENT: Atraumatic, PERRLA Neck: Supple, No JVD, No Thyromegaly Lungs: Normal Air Movement, Other (bilateral rhonchi) Heart: Regular Rate, Normal S1, Normal S2, No Murmurs Abdomen: Normal Bowel Sounds, Soft, No Tenderness, No Hepatosplenomegaly, No Masses Extremities: No Clubbing, No Cyanosis, No Edema, Normal Pulses, No Tenderness/Swelling Skin: No Rashes, No Breakdown, No Significant Lesion Neuro: Normal Gait, Normal Speech, Strength at 5/5 X4 Ext, Normal Tone, Sensation Intact Psych/Mental Status: Mental Status NL, Mood NL Results Lab Laboratory Tests 09/02/20 03:38 A/P-Cardiology Admission Diagnosis Right lower lobe pneumonia Pleural effusion Hypotension Coronary artery disease Assessment/Plan Right lower lobe pneumonia, acute respiratory insufficiency, better today, managed by primary care team Right-sided pleural effusion, questionable empyema, started on antibiotic and Dr. Childs was consulted. Continue to monitor Sepsis, hypotension, history of hypertension, blood pressure is better at this time. Continue to monitor blood pressure Coronary artery disease, history of cardiac catheterization in 2012, nonobstructive coronary artery disease, no chest pain was reported at this time Diabetes mellitus, followed and managed by primary care physician History of pannus cellulitis, left leg ulcer with cellulitis. Currently stable Dementia VALENTINA STRATTON MD Sep 02, 2020 09:44
[2020-09-02] MEDS ORDERED: METF-865 PO (13:07)
[2020-09-02] MEDS ORDERED: CETI10TA17 PO (13:07)
[2020-09-02] MEDS ORDERED: KETO15CR2 TOP (13:07)
[2020-09-02] MEDS ORDERED: ALBU2.5V4 NEB (13:07)
[2020-09-02] MEDS ORDERED: IBUP-2185 PO (13:07)
[2020-09-02] MEDS ORDERED: AMLO-251 PO (13:07)
[2020-09-02] MEDS ORDERED: GABA300C PO (13:07)
[2020-09-02] MEDS ORDERED: CARB-254 OU (13:07)
[2020-09-02] MEDS ORDERED: DAPA10TA PO (13:07)
[2020-09-02] MEDS ORDERED: MICO133A2 TP (13:07)
[2020-09-02] MEDS ORDERED: PROP10DR3 OU (13:07)
[2020-09-02] MEDS ORDERED: METO-333 PO (13:07)
[2020-09-02 15:11] VITALS: BP 158/64
--- NOTE | 2020-09-02 15:37 | Progress Note ---
Subjective Subjective/Events-last exam Patient AOx 2. States that he is feeling much better this AM. Denies any pain. Having occasional shortness of breath. Denies any chest pain. Review of Systems Pulmonary: Dyspnea; No Cough Cardiovascular: Edema; No: Chest Pain, Palpitations Gastrointestinal: No: Nausea, Vomiting, Abdominal Pain, Diarrhea Genitourinary: Incontinence (currently has hassan) Neurological: Weakness, Incoordination Focused Exam Lactate Level 08/31/20 21:30: Lactic Acid Level 1.58 Objective Exam Last Set of Vital Signs Vital Signs Date Time Temp Pulse Resp B/P (MAP) Pulse Ox O2 Delivery O2 Flow Rate FiO2 09/02/20 15:15 NIV Bilevel 30.00 09/02/20 15:11 86 25 97 09/02/20 15:00 158/64 (95) 09/02/20 13:46 36.9 09/02/20 00:36 40 Capillary Refill : Less Than 3 Seconds I&O Intake and Output 09/02/20 00:00 Intake Total 4855 ml Output Total 2825 ml Balance 2030 ml Intake Oral 1325 ml IV Total 3530 ml Output Urine Total 2825 ml Daily Weight Change No General: Alert, Cooperative, No Acute Distress, Other (oriented to person and place) HEENT: Mucous Memb Moist/[place] Lungs: Clear to Auscultation, Normal Air Movement Heart: Regular Rate, No Murmurs Abdomen: Normal Bowel Sounds, Soft, No Tenderness, No Masses Extremities: Other (2+ pitting edema bilaterally) Neuro: Normal Speech, Sensation Intact, Cranial Nerves 3-12 NL Results/Procedures Lab Laboratory Tests 09/02/20 03:38: White Blood Count 8.6, Red Blood Count 3.79L, Hemoglobin 10.5L, Hematocrit 35L, Mean Corpuscular Volume 92, Mean Corpuscular Hemoglobin 28, Mean Corpuscular H emoglobin Concent 30L, Red Cell Distribution Width 14.8H, Platelet Count 389, Mean Platelet Volume 10.1, Immature Granulocyte % (Auto) 0, Neutrophils (%) (Auto) 82H, Lymphocytes (%) (Auto) 5L, Monocytes (%) (Auto) 9, Eosinophils (%) (Auto) 3, Basophils (%) (Auto) 1, Neutrophils # (Auto) 7.0, Lymphocytes # (Auto) 0.4L, Monocytes # (Auto) 0.8, Eosinophils # (Auto) 0.3, Basophils # (Auto) 0.1, Immature Granulocyte # (Auto) 0.0, Sodium Level 141, Potassium Level 4.0, Chloride Level 105, Carbon Dioxide Level 23, Anion Gap 13, Blood Urea Nitrogen 9, Creatinine 0.60, Estimat Glomerular Filtration Rate > 60, BUN/Creatinine Ratio 15, Glucose Level 116H, Calcium Level 8.5, Phosphorus Level 2.9, Magnesium Level 1.8 Microbiology 09/01/20 Urine Culture - Final, Complete NO GROWTH 09/01/20 MRSA Screen - Final, Complete MRSA not isolated 08/31/20 Blood Culture - Preliminary, Resulted No growth Assessment/Plan Assessment/Plan (1) Septic shock Status: Resolved Assessment & Plan: 09/02: HDS, continue broad spectrum antibiotics, blood cultures pending (2) Acute respiratory failure with hypoxia Status: Acute Assessment & Plan: 09/02: Bipap was titrated to NC, doing well, MAT protocol (3) Right lower lobe pneumonia Status: Acute Assessment & Plan: 09/02: Azithromycin/Zosyn/Vanc D3 Qualifiers: Qualified Codes: J18.9 - Pneumonia, unspecified organism (4) Pleural effusion, right Status: Acute Assessment & Plan: 09/02: Loculated pleural effusion vs empyema, General surgery consulted, Possible IR intervention (5) CAD (coronary artery disease) Status: Chronic Assessment & Plan: 09/02: Cardiology consulted, appreciate recommendations, Echo with normal EF Qualifiers: Qualified Codes: I25.10 - Atherosclerotic heart disease of [place] coronary artery without angina pectoris (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 Assessment & Plan: 09/02: A1c pending, continue home insulin with SSI (7) Urinary incontinence Status: Chronic Assessment & Plan: 09/02: Currently has hassan Qualifiers: Qualified Codes: N39.46 - Mixed incontinence (8) Hypertension Status: Chronic Assessment & Plan: 09/02: Meds being held 2/2 shock, will add back as needed Qualifiers: Qualified Codes: I10 - Essential (primary) hypertension (9) Dementia Status: Chronic Assessment & Plan: - Seems to be at baseline at this time Qualifiers: Qualified Codes: F03.90 - Unspecified dementia without behavioral disturbance (10) Debility Status: Chronic (11) DVT prophylaxis Status: Acute Assessment & Plan: - Lovenox GAULT,ROMMEL R MD Sep 02, 2020 15:37
[2020-09-02] MEDS: ACETAMINOPHEN 500 MG TAB (TYLENOL) PO PRN (17:16)
[2020-09-02 18:39] VITALS: BP 119/70
[2020-09-02 19:55] VITALS: BP 126/76
[2020-09-02] MEDS ORDERED: RT-ALBUTEROL INHALER HFA (VENTOLIN HFA) 18 GM IH PRN ×2 (20:15→20:30)
[2020-09-03] MEDS: VANCOMYCIN INJECTION 2,000 MG in NS IV 500 ML 500 ML IV SCH ×2 (00:05→12:00)
[2020-09-03] MEDS: RT-ALBUTEROL INHALER HFA (VENTOLIN HFA) 18 GM IH SCH ×6 (02:08→22:00)
[2020-09-03 03:27] LABS: BASOPHILS % (AUTO) 0 % (0-10); EOSINOPHILS % (AUTO) 0 % (0-10); HEMATOCRIT 38 % (40-54); HEMOGLOBIN 11.4 g/dL (13.3-17.7); LYMPHOCYTES # (AUTO) 0.5 10^3/uL (1.0-4.0); LYMPHOCYTES % (AUTO) 5 % (12-44); MEAN CORPUSCULAR HEMOGLOBIN 28 pg (25-34); MEAN CORPUSCULAR HGB CONC 30 g/dL (32-36); MEAN CORPUSCULAR VOLUME 92 fL (80-99); MEAN PLATELET VOLUME 10.2 fL (9.0-12.2); MONOCYTES # (AUTO) 0.6 10^3/uL (0.0-1.0); MONOCYTES % (AUTO) 6 % (0-12); NEUTROPHILS % (AUTO) 88 % (42-75); PLATELET COUNT 437 10^3/uL (130-400); WHITE BLOOD COUNT 10.3 10^3/uL (4.3-11.0)
[2020-09-03 03:46] LABS: INR 1.3 (0.8-1.4); PROTHROMBIN TIME PATIENT 16.1 SEC (12.2-14.7)
[2020-09-03 03:50] LABS: ALANINE AMINOTRANSFERASE 30 U/L (0-55); ALBUMIN 2.8 GM/DL (3.2-4.5); ALKALINE PHOSPHATASE 94 U/L (40-136); BILIRUBIN,TOTAL 0.4 MG/DL (0.1-1.0); BUN/CREATININE RATIO 13; CALCIUM 8.7 MG/DL (8.5-10.1); CARBON DIOXIDE 23 MMOL/L (21-32); CHLORIDE 106 MMOL/L (98-107); CREATININE SERUM 0.64 MG/DL (0.60-1.30); GFR ESTIMATED > 60; GLUCOSE 161 MG/DL (70-105); SODIUM 143 MMOL/L (135-145)
[2020-09-03] MEDS: VASOPRESSIN INJECTION 20 UNIT in NS (IVPB) 100 ML IV SCH ×3 (04:41→17:41)
[2020-09-03] MEDS: AZITHROMYCIN INJECTION 500 MG in NS (IVPB) 250 ML IV SCH (04:41)
[2020-09-03] MEDS: KCL 20 MEQ TAB (K-DUR) PO SCH (04:50)
[2020-09-03] MEDS: MAGNESIUM 1 GM/100 ML IVPB 100 ML IV SCH (04:50)
[2020-09-03] MEDS: POTASSIUM CL 10MEQ/50ML IVPB 50 ML IV SCH (04:50)
[2020-09-03] MEDS: LACTATED RINGERS 1,000 ML IV SCH ×3 (06:04→20:57)
[2020-09-03] MEDS: PIPERACILLIN/TAZOBACTAM (BULK) 4.5 GM in NS (IVPB) 100 ML IV SCH ×3 (06:04→20:57)
--- NOTE | 2020-09-03 07:23 | Progress Note - Surgery ---
ALAN YIP MED STUDENT 09/03/20 0723: Subjective Date Seen by a Provider: Sep 03, 2020 Time Seen by a Provider: 06:45 Subjective/Events-last exam Patient awake and alert upon entering room. Disoriented to situation and place. Oriented to self. Seems confused, repeating questions after answering them. Denies chest pain, SOB, nausea, chills, and pain. States he's breathing without difficulty. Unsure of date of last BM. Hassan in place, denies discomfort from that. He has no questions this morning. Review of Systems General: No Chills, No Night Sweats HEENT: No Head Aches, No Visual Changes Pulmonary: No Dyspnea, No Cough Cardiovascular: No: Chest Pain, Palpitations Gastrointestinal: No: Nausea, Vomiting Genitourinary: No Dysuria, No Frequency; Other (hassan to dependent drainage) Musculoskeletal: No: neck pain, back pain Neurological: Weakness, Confusion; No: Numbness, Change in speech Focused Exam Lactate Level 08/31/20 21:30: Lactic Acid Level 1.58 Objective Exam Vital Signs Date Time Temp Pulse Resp B/P (MAP) Pulse Ox O2 Delivery O2 Flow Rate FiO2 09/03/20 06:44 95 High Flow N/C 3.00 09/03/20 04:00 64 127/59 (81) 93 Nasal Cannula 3.00 09/03/20 04:00 Nasal Cannula 3.00 09/03/20 04:00 93 High Flow N/C 3.00 09/03/20 03:00 82 165/77 (106) 94 High Flow N/C 4.00 09/03/20 02:26 36.3 High Flow N/C 4.00 09/03/20 02:09 97 High Flow N/C 4.00 09/03/20 02:00 62 152/68 (96) 97 High Flow N/C 5.00 09/03/20 01:00 71 09/03/20 01:00 71 134/65 (88) 100 High Flow N/C 5.00 09/03/20 00:00 70 138/69 (92) 100 High Flow N/C 5.00 09/02/20 23:59 94 High Flow N/C 5.00 09/02/20 23:00 73 147/65 (92) 97 High Flow N/C 5.00 09/02/20 22:51 96 High Flow N/C 5.00 09/02/20 22:00 36.4 95 High Flow N/C 5.00 09/02/20 22:00 84 137/69 (91) 96 High Flow N/C 5.00 09/02/20 21:00 90 133/71 (91) 96 High Flow N/C 6.00 09/02/20 20:00 93 NIV Bilevel 30 09/02/20 20:00 96 High Flow N/C 6.00 09/02/20 20:00 96 130/72 (91) 96 High Flow N/C 6.00 09/02/20 20:00 97 High Flow N/C 8.00 09/02/20 19:55 124 93 30 09/02/20 19:40 36.5 09/02/20 19:00 125 8 116/71 (86) 93 NIV Bilevel 30.00 09/02/20 19:00 125 09/02/20 18:39 124 32 93 30.00 09/02/20 18:03 37.6 09/02/20 18:00 125 6 126/76 (93) 93 NIV Bilevel 30.00 09/02/20 17:16 37.7 09/02/20 17:00 133 14 105/63 (77) 92 NIV Bilevel 30.00 09/02/20 16:05 37.0 09/02/20 16:00 98 144/127 (133) 93 NIV Bilevel 30.00 09/02/20 16:00 93 Nasal Cannula 4.00 09/02/20 15:15 NIV Bilevel 30.00 09/02/20 15:11 86 25 97 40.00 09/02/20 15:00 87 158/64 (95) 94 NIV Bilevel 40.00 09/02/20 14:00 92 157/74 (101) 100 NIV Bilevel 40.00 09/02/20 13:46 36.9 09/02/20 13:45 NIV Bilevel 40.00 09/02/20 13:00 105 165/73 (103) Nasal Cannula 5.00 09/02/20 12:48 94 09/02/20 12:00 92 149/64 (92) 91 Nasal Cannula 5.00 09/02/20 11:47 93 Nasal Cannula 4.00 09/02/20 11:00 75 151/68 (95) 95 Nasal Cannula 5.00 09/02/20 10:29 36.6 09/02/20 10:22 Nasal Cannula 5.00 09/02/20 10:19 94 High Flow N/C 5.00 09/02/20 10:00 80 138/63 (88) 91 Nasal Cannula 6.00 09/02/20 09:00 86 151/68 (95) 89 Nasal Cannula 6.00 09/02/20 08:00 67 132/53 (79) 95 Nasal Cannula 6.00 09/02/20 08:00 93 Nasal Cannula 4.00 I & O 09/03/20 07:00 Intake Total 3257 ml Output Total 3976 ml Balance -719 ml Capillary Refill : Less Than 3 Seconds General Appearance: No Apparent Distress, Chronically ill, Obese HEENT: PERRL/EOMI, Pharynx Normal Neck: Normal Inspection, Non Tender Respiratory: Chest Non Tender, No Accessory Muscle Use, No Respiratory Distress, Crackles, Decreased Breath Sounds Cardiovascular: Regular Rate, Rhythm, Normal Peripheral Pulses Peripheral Pulses: 2+ Dorsalis Pedis (R), 2+ Left Dors-Pedis (L), 2+ Radial Pulses (R), 2+ Radial Pulses (L) Gastrointestinal: normal bowel sounds, non tender, soft; No distended, No guarding, No rebound, No tenderness Extremity: Normal Capillary Refill, Normal Inspection, Non Tender, No Calf Tenderness Neurologic/Psychiatric: Alert, Disoriented Skin: Normal Color, Warm/Dry Lymphatic: No Adenopathy Results Lab Laboratory Tests 09/03/20 02:45: White Blood Count 10.3, Red Blood Count 4.12L, Hemoglobin 11.4L, Hematocrit 38L, Mean Corpuscular Volume 92, Mean Corpuscular Hemoglobin 28, Mean Corpuscular Hemoglobin Concent 30L, Red Cell Distribution Width 14.8H, Platelet Count 437H, Mean Platelet Volume 10.2, Immature Granulocyte % (Auto) 0, Neutrophils (%) (Auto) 88H, Lymphocytes (%) (Auto) 5L, Monocytes (%) (Auto) 6, Eosinophils (%) ( Auto) 0, Basophils (%) (Auto) 0, Neutrophils # (Auto) 9.0H, Lymphocytes # (Auto) 0.5L, Monocytes # (Auto) 0.6, Eosinophils # (Auto) 0.0, Basophils # (Auto) 0.0, Immature Granulocyte # (Auto) 0.0, Prothrombin Time 16.1H, INR Comment 1.3, Sodium Level 143, Potassium Level 4.0, Chloride Level 106, Carbon Dioxide Level 23, Anion Gap 14, Blood Urea Nitrogen 8, Creatinine 0.64, Estimat Glomerular Filtration Rate > 60, BUN/Creatinine Ratio 13, Glucose Level 161H, Calcium Level 8.7, Corrected Calcium 9.7, Total Bilirubin 0.4, Aspartate Amino Transf (AST/SGOT) 26, Alanine Aminotransferase (ALT/SGPT) 30, Alkaline Phosphatase 94, Total Protein 7.0, Albumin 2.8L Microbiology 09/01/20 Urine Culture - Final, Complete NO GROWTH 09/01/20 MRSA Screen - Final, Complete MRSA not isolated 08/31/20 Blood Culture - Preliminary, Resulted No growth Assessment/Plan Assessment/Plan Assessment/Plan Right lower lobe pneumonia Right chest parapneumonic effusion versus empyema small to moderate Anemia- probably dilutional, improved from yesterday Morbid obesity Severe sepsis- Improving Shortness of breath Continue current medical management. Continue aggressive pulmonary treatment, IV antibiotics if worsening of the effusion/empyema arranged interventional radiology for drainage if not possible patient may need surgical intervention Clear liquid diet as tolerated, advance as tolerate Hgb up from yesterday to 11.4 today, continue to monitor Encourage Cough and deep breath. IS q 1hr WA. DEEDEE SYLVESTER DO 09/03/202052: Subjective Subjective/Events-last exam Patient remains in intensive care unit. Patient is stating no difference from yesterday. Patient does have a little bit of disorientation/confusion. He does answer questions but seems to be slightly confused as well. Patient feels he is breathing about the same or slightly better. No new complaints. Patient denies any nausea or vomiting fever sweats chills or chest pain at this time. Patient for CT-guided right drain of chest effusion. Objective Exam General Appearance: Chronically ill, Obese HEENT: PERRL/EOMI, Normal ENT Inspection Neck: Normal Inspection, Non Tender Respiratory: Chest Non Tender, No Accessory Muscle Use, No Respiratory Distress, Crackles, Decreased Breath Sounds Cardiovascular: Regular Rate, Rhythm, No JVD Gastrointestinal: non tender, soft; No distended, No guarding, No rebound, No tenderness Extremity: Normal Inspection, Non Tender, No Calf Tenderness Neurologic/Psychiatric: Alert, Disoriented Skin: Normal Color, Warm/Dry Lymphatic: No Adenopathy Assessment/Plan Assessment/Plan Assessment/Plan Right lower lobe pneumonia Right chest parapneumonic effusion versus empyema small to moderate Anemia- probably dilutional, improved from yesterday Morbid obesity Severe sepsis- Improving Shortness of breath Continue current medical management. Continue aggressive pulmonary treatment, IV antibiotics if worsening of the effusion/empyema arranged interventional radiology for drainage if not possible patient may need surgical intervention Clear liquid diet as tolerated, advance as tolerate Hgb up from yesterday to 11.4 today, continue to monitor Encourage Cough and deep breath. IS q 1hr WA. Supervisory-Addendum Brief Verification & Attestation Participated in pt care: history, MDM, physical Personally performed: exam, history, MDM, supervision of care Care discussed with: Medical Student Procedures: n/a Results interpretation: Verified all documentation Verification and Attestation of Medical Student E/M Service A medical student performed and documented this service in my presence. I reviewed and verified all information documented by the medical student and made modifications to such information, when appropriate. I personally performed the physical exam and medical decision making. Deedee Sylvester, Sep 03, 2020,20:53 ALAN YIP MED STUDENT Sep 03, 2020 07:23 DEEDEE SLYVESTER DO Sep 03, 2020 20:53
[2020-09-03] MEDS: NOREPINEPHRINE 8 MG/250 ML 250 ML IV SCH ×2 (08:05→14:27)
--- NOTE | 2020-09-03 08:16 | Diagnostic Imaging Report ---
INDICATION: Respiratory distress, ICU management. TECHNIQUE: Single view chest 3:34 AM. CORRELATION STUDY: 09/02/2020 FINDINGS: Heart size remains enlarged. Vasculature slightly more prominent. Bilateral pulmonary opacities right significantly greater than left persist. IMPRESSION: 1. Bilateral pulmonary opacities favoring probable multifocal pneumonia persisting overall stable. More focal density of the right mid lung field favors probable loculated pleural effusion. 2. Stable cardiac enlargement with vasculature appearing slightly more prominent. Dictated by: Dictated on workstation # [id number]
[2020-09-03] MEDS: ENOXAPARIN 40 MG/0.4 ML (LOVENOX) SYR SC SCH ×2 (09:00→20:57)
--- NOTE | 2020-09-03 10:43 | Cardiology Progress Note ---
Subjective Date Seen by Provider: Sep 03, 2020 Time Seen by Provider: 10:41 Subjective/Events-last exam patient is laying down in bed, lethargic, denied any chest pain, still having shortness of breath Review of Systems General: No Chills, No Night Sweats; Fatigue, Malaise; No Appetite, No Other HEENT: No Head Aches, No Visual Changes, No Eye Pain, No Ear Pain, No D ysphasia, No Sinus Congestion, No Post Nasal Drip, No Sore Throat, No Other Pulmonary: Dyspnea; No Cough, No Pleuritic Chest Pain, No Other Cardiovascular: No: Chest Pain, Palpitations, Orthopnea, Paroxysmal Noc. Dyspnea, Edema, Lt Headedness, Other Focused Exam Lactate Level 08/31/20 21:30: Lactic Acid Level 1.58 Objective-Cardiology Exam Last Set of Vital Signs Vital Signs 09/02/20 09/03/20 09/03/20 19:00 08:06 10:00 Temp 36.6 Pulse 77 Resp 8 B/P (MAP) 156/66 (96) Pulse Ox 97 O2 Delivery Nasal Cannula O2 Flow Rate 3.00 Capillary Refill : Less Than 3 Seconds I&O Intake and Output 09/03/20 00:00 Intake Total 3017 ml Output Total 4176 ml Balance -1159 ml Intake Oral 1487 ml IV Total 1530 ml Output Urine Total 4175 ml Stool Total 1 ml General: Alert, Cooperative, No Acute Distress, Other (oriented to person and place) HEENT: Atraumatic, Mucous Memb Moist/[place]aley Neck: Supple, No JVD, No Thyromegaly Lungs: Clear to Auscultation, Normal Air Movement Heart: Regular Rate, Normal S1, Normal S2, No Murmurs Abdomen: Normal Bowel Sounds, Soft, No Tenderness, No Masses Extremities: No Clubbing, Other (2+ pitting edema bilaterally) Skin: No Rashes, No Breakdown, No Significant Lesion Neuro: Normal Speech, Sensation Intact, Cranial Nerves 3-12 NL Psych/Mental Status: Mental Status NL, Mood NL Results Lab Laboratory Tests 09/03/20 02:45 A/P-Cardiology Admission Diagnosis Right lower lobe pneumonia Pleural effusion Hypotension Coronary artery disease Assessment/Plan Right lower lobe pneumonia, acute respiratory insufficiency, better today, managed by primary care team Right-sided pleural effusion, questionable empyema, managed by primary care team Sepsis, hypotension, history of hypertension, blood pressure is better at this time. Continue to monitor blood pressure Coronary artery disease, history of cardiac catheterization in 2012, nonobstructive coronary artery disease, no chest pain was reported at this time Diabetes mellitus, followed and managed by primary care physician History of pannus cellulitis, left leg ulcer with cellulitis. Currently stable Dementia VALENTINA STRATTON MD Sep 03, 2020 10:43
[2020-09-03] MEDS ORDERED: LIDOCAINE 1% INJ 20 ML 20 ML VIAL INJ ONE (13:45)
[2020-09-03] MEDS ORDERED: fentaNYL INJ 100 MCG/2 ML AMP IVP ONE (13:45)
[2020-09-03] MEDS ORDERED: MIDAZOLAM 2 MG/2 ML (VERSED) VIAL IVP ONE (13:45)
[2020-09-03] MEDS ORDERED: fentaNYL INJ 100 MCG/2 ML AMP ONE (13:47)
[2020-09-03] MEDS ORDERED: LIDOCAINE 1% INJ 20 ML 20 ML VIAL ONE (13:47)
[2020-09-03 15:29] LABS: ALBUMIN,BODY FLUID 1.5 G/DL; BODY FLUID TRIGLYCERIDES 70 MG/DL; GLUCOSE,BODY FLUID 27 MG/DL; TOTAL PROTEIN,BODY FLUID 3.5 G/DL
--- NOTE | 2020-09-03 15:39 | Diagnostic Imaging Report ---
INDICATION: Loculated right-sided pleural effusion. Patient presents for CT-guided drain placement. TECHNIQUE: All CT scans use one or more of the following dose optimizing techniques: automated exposure control, MA and/or KvP adjustment based on patient size and exam type or iterative reconstruction. DESCRIPTION OF PROCEDURE: The patient was brought to the CT suite and placed on table in the left side down decubitus position. Axial imaging through the chest was performed. Procedure was performed with radiology nursing in constant patient monitoring. Total of 50 mcg of fentanyl was administered intravenously. Total procedure time was approximately 15 minutes. The right lateral chest was prepped and draped in usual sterile fashion. Small amount of 1% lidocaine was utilized for local anesthesia. A Yueh needle was utilized to puncture the loculated fluid collection along the lower right chest wall. A Yueh was exchanged over an 035 guidewire. The 6-Haitian and 8-Haitian dilators were then advanced over the guidewire. Next, an 8.5-Haitian all-purpose drain was placed over the guidewire and a loop was formed within the loculated collection in the lower right chest. Small amount of purulent fluid was aspirated and sent to lab for testing. The drainage catheter was then placed to a Heidi drain. Patient tolerated the procedure well and left the department in stable condition. IMPRESSION: Successful CT-guided all-purpose drain placement into the loculated pleural fluid collection along the lower right chest. Dictated by: Dictated on workstation # [id number]
[2020-09-03 16:41] LABS: BODY FLUID APPEARENCE MKD CLDY; BODY FLUID COLOR BROWN; BODY FLUID RBC COUNT 18000 /uL; BODY FLUID SOURCE THORACEN; BODY FLUID WBC TOTAL COUNT 136500 /uL
[2020-09-03 16:42] LABS: LYMPHOCYTES,BODY FLUID 3 %
[2020-09-03 17:36] LABS: LDH,BODY FLUID 517 U/L
--- NOTE | 2020-09-03 21:26 | Progress Note ---
Subjective Subjective/Events-last exam Patient states that he is doing better this AM. He is mad that he did not get a meal this AM. Has not been out of bed. Patient is wheel chair bound at baseline. Review of Systems Pulmonary: Dyspnea, Cough Cardiovascular: No: Chest Pain, Palpitations Gastrointestinal: No: Nausea, Vomiting, Abdominal Pain, Diarrhea, Constipation Neurological: Weakness, Incoordination Focused Exam Lactate Level 08/31/20 21:30: Lactic Acid Level 1.58 Objective Exam Last Set of Vital Signs Vital Signs Date Time Temp Pulse Resp B/P (MAP) Pulse Ox O2 Delivery O2 Flow Rate FiO2 09/03/20 19:57 36.6 09/03/20 18:10 Vapotherm 20.00 50.00 09/03/20 18:00 84 149/65 (93) 91 09/02/20 20:00 30 09/02/20 19:00 8 Capillary Refill : Less Than 3 Seconds I&O Intake and Output 09/03/20 00:00 Intake Total 3017 ml Output Total 4176 ml Balance -1159 ml Intake Oral 1487 ml IV Total 1530 ml Output Urine Total 4175 ml Stool Total 1 ml General: Alert, Cooperative, No Acute Distress Lungs: Other (diminished breath sounds, normal work of breath at rest but conversational dyspnea) Heart: Regular Rate, No Murmurs Abdomen: Normal Bowel Sounds, Soft, No Tenderness, No Masses Extremities: Other (1+ pitting edema bilaterally) Skin: No Rashes, No Breakdown Neuro: Normal Speech Results/Procedures Lab Laboratory Tests 09/03/20 02:45: White Blood Count 10.3, Red Blood Count 4.12L, Hemoglobin 11.4L, Hematocrit 38L, Mean Corpuscular Volume 92, Mean Corpuscular Hemoglobin 28, Mean Corpuscular Hemoglobin Concent 30L, Red Cell Distribution Width 14.8H, Platelet Count 437H, Mean Platelet Volume 10.2, Immature Granulocyte % (Auto) 0, Neutrophils (%) (Auto) 88H, Lymphocytes (%) (Auto) 5L, Monocytes (%) (Auto) 6, Eosinophils (%) (Auto) 0, Basophils (%) (Auto) 0, Neutrophils # (Auto) 9.0H, Lymphocytes # (Auto) 0.5L, Monocytes # (Auto) 0.6, Eosinophils # (Auto) 0.0, Basophils # (Auto) 0.0, Immature Granulocyte # (Auto) 0.0, Prothrombin Time 16.1H, INR Comment 1.3, Sodium Level 143, Potassium Level 4.0, Chloride Level 106, Carbon Dioxide Level 23, Anion Gap 14, Blood Urea Nitrogen 8, Creatinine 0.64, Estimat Glomerular Filtration Rate > 60, BUN/Creatinine Ratio 13, Glucose Level 161H, Calcium Level 8.7, Corrected Calcium 9.7, Total Bilirubin 0.4, Aspartate Amino Transf (AST/SGOT) 26, Alanine Aminotransferase (ALT/SGPT) 30, Alkaline Phosphatase 94, Total Protein 7.0, Albumin 2.8L 09/03/20 10:28: Body Fluid Source THORACEN, Body Fluid Color BROWN, Body Fluid Appearance MKD CLDY, Body Fluid pH 6.0, Body Fluid WBC 424409, Body Fluid RBC 74113, Body Fluid Polynuclear WBCs 97, Body Fluid Mononuclear WBCs , Body Fluid Lymphocytes 3, Body Fluid Other Cells , Body Fluid Glucose 27, Body Fluid Total Protein 3.5, Body Fluid Albumin 1.5, Body Fluid Lactate Dehydrogenase 517, Body Fluid Triglycerides 70 Microbiology 09/01/20 Urine Culture - Final, Complete NO GROWTH 09/01/20 MRSA Screen - Final, Complete MRSA not isolated 08/31/20 Blood Culture - Preliminary, Resulted No growth Assessment/Plan Assessment/Plan (1) Septic shock Status: Resolved Assessment & Plan: 09/02: HDS, continue broad spectrum antibiotics, blood cultures pending 09/03: NGTD, IR today for drainage of loculated fluid in lung (2) Acute respiratory failure with hypoxia Status: Acute Assessment & Plan: 09/02: Bipap was titrated to NC, doing well, MAT protocol 09/03: Patient on Vapotherm after procedure, will wean as tolerated (3) Right lower lobe pneumonia Status: Acute Assessment & Plan: 09/02: Azithromycin/Zosyn/Vanc D3 09/03: D4 of antibiotics Qualifiers: Qualified Codes: J18.9 - Pneumonia, unspecified organism (4) Pleural effusion, right Status: Acute Assessment & Plan: 09/02: Loculated pleural effusion vs empyema, General surgery consulted, Possible IR intervention (5) CAD (coronary artery disease) Status: Chronic Assessment & Plan: 09/02: Cardiology consulted, appreciate recommendations, Echo with normal EF Qualifiers: Qualified Codes: I25.10 - Atherosclerotic heart disease of [place] coronary artery without angina pectoris (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 Assessment & Plan: 09/02: A1c pending, continue home insulin with SSI (7) Urinary incontinence Status: Chronic Assessment & Plan: 09/02: Currently has hassan Qualifiers: Qualified Codes: N39.46 - Mixed incontinence (8) Hypertension Status: Chronic Assessment & Plan: 09/02: Meds being held 2/2 shock, will add back as needed Qualifiers: Qualified Codes: I10 - Essential (primary) hypertension (9) Dementia Status: Chronic Assessment & Plan: - Seems to be at baseline at this time Qualifiers: Qualified Codes: F03.90 - Unspecified dementia without behavioral disturbance (10) Debility Status: Chronic (11) DVT prophylaxis Status: Acute Assessment & Plan: - ROMMEL Boyd MD Sep 03, 2020 21:26
[2020-09-03 22:01] VITALS: BP 164/77
[2020-09-04] MEDS: ACETAMINOPHEN 500 MG TAB (TYLENOL) PO PRN ×2 (00:43→22:45)
[2020-09-04] MEDS: RT-ALBUTEROL INHALER HFA (VENTOLIN HFA) 18 GM IH SCH ×6 (01:58→22:38)
[2020-09-04] MEDS: NOREPINEPHRINE 8 MG/250 ML 250 ML IV SCH ×3 (03:13→20:04)
[2020-09-04] MEDS: VASOPRESSIN INJECTION 20 UNIT in NS (IVPB) 100 ML IV SCH ×3 (03:13→20:04)
[2020-09-04 03:52] LABS: BASOPHILS # (AUTO) 0.1 10^3/uL (0.0-0.1); BASOPHILS % (AUTO) 1 % (0-10); EOSINOPHILS # (AUTO) 0.4 10^3/uL (0.0-0.3); EOSINOPHILS % (AUTO) 5 % (0-10); HEMATOCRIT 36 % (40-54); HEMOGLOBIN 10.9 g/dL (13.3-17.7); LYMPHOCYTES # (AUTO) 0.5 10^3/uL (1.0-4.0); LYMPHOCYTES % (AUTO) 7 % (12-44); MEAN CORPUSCULAR HEMOGLOBIN 28 pg (25-34); MEAN CORPUSCULAR HGB CONC 31 g/dL (32-36); MEAN CORPUSCULAR VOLUME 91 fL (80-99); MEAN PLATELET VOLUME 9.7 fL (9.0-12.2); MONOCYTES # (AUTO) 0.9 10^3/uL (0.0-1.0); MONOCYTES % (AUTO) 12 % (0-12); NEUTROPHILS # (AUTO) 5.5 10^3/uL (1.8-7.8); NEUTROPHILS % (AUTO) 75 % (42-75); PLATELET COUNT 400 10^3/uL (130-400); WHITE BLOOD COUNT 7.4 10^3/uL (4.3-11.0)
[2020-09-04 04:07] LABS: BUN/CREATININE RATIO 10; CALCIUM 8.7 MG/DL (8.5-10.1); CARBON DIOXIDE 22 MMOL/L (21-32); CHLORIDE 105 MMOL/L (98-107); CREATININE SERUM 0.62 MG/DL (0.60-1.30); GFR ESTIMATED > 60; POTASSIUM 3.6 MMOL/L (3.6-5.0); SODIUM 141 MMOL/L (135-145)
[2020-09-04 04:28] LABS: GLUCOSE 156 MG/DL (70-105)
[2020-09-04] MEDS: MAGNESIUM 1 GM/100 ML IVPB 100 ML IV SCH (04:34)
[2020-09-04] MEDS: POTASSIUM CL 10MEQ/50ML IVPB 50 ML IV SCH (04:34)
[2020-09-04] MEDS: KCL 20 MEQ TAB (K-DUR) PO SCH (04:35)
[2020-09-04] MEDS: PIPERACILLIN/TAZOBACTAM (BULK) 4.5 GM in NS (IVPB) 100 ML IV SCH ×3 (05:16→21:32)
[2020-09-04] MEDS: AZITHROMYCIN INJECTION 500 MG in NS (IVPB) 250 ML IV SCH (05:16)
[2020-09-04] MEDS: LACTATED RINGERS 1,000 ML IV SCH ×2 (05:17→22:21)
[2020-09-04] MEDS ORDERED: KCL 20 MEQ TAB (K-DUR) PO ONE (06:00)
--- NOTE | 2020-09-04 06:23 | Diagnostic Imaging Report ---
INDICATION: Right-sided drain placement. TIME OF EXAM: 3:31 AM Correlation is made prior study one day earlier. FINDINGS: Small caliber pigtail drain overlies the right base. There has been decrease in size of loculated effusion along the right chest wall. There is mild bibasilar subsegmental atelectasis. No pneumothorax is seen. IMPRESSION: Reduction in loculated effusion on the right status post drain placement. Dictated by: Dictated on workstation # [id number]
--- NOTE | 2020-09-04 07:17 | Progress Note - Surgery ---
ALAN YIP MED STUDENT 09/04/20 0717: Subjective Date Seen by a Provider: Sep 04, 2020 Time Seen by a Provider: 06:50 Subjective/Events-last exam Patient awake and alert this am. States he's been sleeping ok overnight. Oriented to self and place, disoriented to situation and time. Answers questions with delayed responses. He denies chest pain, SOB, headache, fevers, chills, and abdominal pain. Reports feeling cold. He states he's been tolerating po intake without difficulty. States he's going to order a BLT for lunch. Hassan to dependent drainage. Drainage bag for right lung drain to dependent drainage. Vitals stable per monitor. Maintained on vapotherm. Review of Systems General: No Chills, No Night Sweats HEENT: No Head Aches, No Visual Changes Pulmonary: No Dyspnea, No Cough Cardiovascular: No: Chest Pain, Palpitations Gastrointestinal: No: Nausea, Vomiting, Abdominal Pain Genitourinary: No Dysuria, No Frequency; Other (hassan to dependent drainage) Musculoskeletal: No: neck pain, back pain Neurological: No: Weakness, Numbness Objective Exam Vital Signs Date Time Temp Pulse Resp B/P (MAP) Pulse Ox O2 Delivery O2 Flow Rate FiO2 09/04/20 07:04 95 Vapotherm 20.00 50 09/04/20 05:54 37.0 Vapotherm 20.00 50.00 09/04/20 05:50 64 160/80 (106) 91 Vapotherm 20.00 40.00 09/04/20 05:00 16 09/04/20 04:41 90 Vapotherm 40 09/04/20 04:36 52 171/72 (105) 91 Vapotherm 20.00 40.00 09/04/20 04:00 18 09/04/20 03:36 66 165/75 (105) 90 Vapotherm 20.00 40.00 09/04/20 02:36 59 170/73 (113) 92 Vapotherm 20.00 40.00 09/04/20 02:31 40 09/04/20 02:04 59 163/74 (110) 94 Vapotherm 20.00 40.00 09/04/20 02:00 22 09/04/20 02:00 94 Vapotherm 20.00 40.00 09/04/20 01:58 96 Vapotherm 20.00 50 09/04/20 01:04 65 163/71 (109) 95 Vapotherm 20.00 50.00 09/04/20 01:00 65 09/04/20 00:04 70 162/75 (112) 93 Vapotherm 20.00 50.00 09/04/20 00:00 96 Vapotherm 50 09/04/20 00:00 18 09/03/20 23:04 65 163/73 (103) 95 Vapotherm 20.00 50.00 09/03/20 23:00 36.7 96 Vapotherm 20.00 50.00 09/03/20 22:05 67 94 NIV Bilevel 30.00 09/03/20 22:04 67 156/75 (102) 95 Vapotherm 20.00 50.00 09/03/20 22:01 66 27 95 30.00 09/03/20 21:04 71 164/77 (106) 92 Vapotherm 20.00 50.00 09/03/20 21:00 20 09/03/20 20:03 73 154/67 (96) 95 Vapotherm 20.00 50.00 09/03/20 20:00 16 09/03/20 20:00 93 Vapotherm 50 09/03/20 19:57 36.6 09/03/20 19:03 82 148/64 (92) 93 Vapotherm 20.00 50.00 09/03/20 19:00 93 Vapotherm 20.00 50.00 09/03/20 19:00 75 09/03/20 18:10 Vapotherm 20.00 50.00 09/03/20 18:00 84 149/65 (93) 91 High Flow N/C 10.00 09/03/20 17:58 87 High Flow N/C 15.00 09/03/20 17:00 84 147/72 (97) 92 High Flow N/C 10.00 09/03/20 16:00 97 High Flow N/C 10.00 09/03/20 16:00 77 143/66 (91) 94 High Flow N/C 10.00 09/03/20 15:41 36.5 09/03/20 15:00 81 131/67 (88) 91 High Flow N/C 10.00 09/03/20 13:00 75 147/63 (91) 98 High Flow N/C 10.00 09/03/20 12:38 70 09/03/20 12:00 76 153/63 (93) 99 High Flow N/C 10.00 09/03/20 11:52 36.8 09/03/20 11:30 97 High Flow N/C 10.00 09/03/20 11:14 95 High Flow N/C 8.00 09/03/20 11:00 76 136/57 (83) 97 High Flow N/C 10.00 09/03/20 10:00 77 156/66 (96) 97 High Flow N/C 10.00 09/03/20 09:00 75 163/84 (110) 96 High Flow N/C 10.00 09/03/20 08:06 36.6 09/03/20 08:00 86 158/74 (102) 88 Nasal Cannula 3.00 09/03/20 08:00 86 158/74 (102) 88 High Flow N/C 10.00 09/03/20 08:00 93 High Flow N/C 10.00 I & O 09/04/20 07:00 Intake Total 4070 ml Output Total 3846 ml Balance 224 ml Capillary Refill : Less Than 3 Seconds General Appearance: Chronically ill, Obese HEENT: PERRL/EOMI, Pharynx Normal, Other (dry mucous membranes) Neck: Normal Inspection, Non Tender Respiratory: Chest Non Tender, No Accessory Muscle Use, No Respiratory Distress, Crackles, Decreased Breath Sounds (quiet air entry when auscultating bilaterally) Cardiovascular: Regular Rate, Rhythm, No JVD, Normal Peripheral Pulses Peripheral Pulses: 2+ Dorsalis Pedis (R), 2+ Left Dors-Pedis (L), 2+ Radial Pulses (R), 2+ Radial Pulses (L) Gastrointestinal: normal bowel sounds, non tender, soft; No distended, No guarding, No rebound, No tenderness Extremity: Normal Capillary Refill, Normal Inspection, Non Tender, No Calf Tenderness Neurologic/Psychiatric: Alert, Disoriented Skin: Normal Color, Warm/Dry Lymphatic: No Adenopathy Results Lab Laboratory Tests 09/03/20 10:28: Body Fluid Source THORACEN, Body Fluid Color BROWN, Body Fluid Appearance MKD CLDY, Body Fluid pH 6.0, Body Fluid WBC 146731, Body Fluid RBC 73036, Body Fluid Polynuclear WBCs 97, Body Fluid Mononuclear WBCs , Body Fluid Lymphocytes 3, Body Fluid Other Cells , Body Fluid Glucose 27, Body Fluid Total Protein 3.5, Body Fluid Albumin 1.5, Body Fluid Lactate Dehydrogenase 517, Body Fluid Triglycerides 70 09/04/20 03:37: White Blood Count 7.4, Red Blood Count 3.91L, Hemoglobin 10.9L, Hematocrit 36L, Mean Corpuscular Volume 91, Mean Corpuscular Hemoglobin 28, Mean Corpuscular Hemoglobin Concent 31L, Red Cell Distribution Width 14.8H, Platelet Count 400, Mean Platelet Volume 9.7, Immature Granulocyte % (Auto) 1, Neutrophils (%) (Auto) 75, Lymphocytes (%) (Auto) 7L, Monocytes (%) (Auto) 12, Eosinophils (%) (Auto) 5, Basophils (%) (Auto) 1, Neutrophils # (Auto) 5.5, Lymphocytes # (Auto) 0.5L, Monocytes # (Auto) 0.9, Eosinophils # (Auto) 0.4H, Basophils # (Auto) 0.1, Immature Granulocyte # (Auto) 0.1, Sodium Level 141, Potassium Level 3.6, Chloride Level 105, Carbon Dioxide Level 22, Anion Gap 14, Blood Urea Nitrogen 6L, Creatinine 0.62, Estimat Glomerular Filtration Rate > 60, BUN/Creatinine Ratio 10, Glucose Level 156H, Calcium Level 8.7 Microbiology 09/01/20 Urine Culture - Final, Complete NO GROWTH 09/01/20 MRSA Screen - Final, Complete MRSA not isolated 08/31/20 Blood Culture - Preliminary, Resulted No growth Assessment/Plan Assessment/Plan Assessment/Plan S/P pigtail drain placement to R lung Right lower lobe pneumonia Right chest parapneumonic effusion versus empyema small to moderate Anemia- Hgb 10.9 this am Morbid obesity Severe sepsis Shortness of breath CAD Diabetes mellitus insulin dependent Patient had drain placed to R lung yesterday, milky scant output in collection bag Continue current medical management. Diabetic diet as tolerated Hgb 10.9 today, down from 11.4 yesterday, continue to monitor Encourage Cough and deep breath. IS q 1hr WA. DEEDEE SYLVESTER DO 09/04/20 6727: Subjective Subjective/Events-last exam Patient breathing okay he states. Drain with purulent material from right chest . Tolerating diet. Limited discussion from patient. Chest x ray slightly improved. Objective Exam General Appearance: No Apparent Distress, Chronically ill, Obese HEENT: PERRL/EOMI Neck: Normal Inspection, Non Tender Respiratory: Chest Non Tender, No Accessory Muscle Use, No Respiratory Distress, Crackles, Decreased Breath Sounds (quiet air entry when auscultating bilaterally) Cardiovascular: Regular Rate, Rhythm, No JVD Gastrointestinal: normal bowel sounds, non tender, soft Extremity: Normal Capillary Refill, Normal Inspection, Non Tender Neurologic/Psychiatric: Alert, Oriented x3, No Motor/Sensory Deficits, Normal Mood/Affect Skin: Normal Color, Warm/Dry Lymphatic: No Adenopathy Assessment/Plan Assessment/Plan Assessment/Plan S/P pigtail drain placement to R chest Right lower lobe pneumonia Right chest parapneumonic effusion versus empyema small to moderate Anemia- Hgb 10.9 this am Morbid obesity Severe sepsis Shortness of breath CAD Diabetes mellitus insulin dependent Patient had drain placed to R lung yesterday, purulent output in collection bag irrigate bag Continue current medical management. Diabetic diet as tolerated Hgb 10.9 today, down from 11.4 yesterday, continue to monitor Encourage Cough and deep breath. IS q 1hr WA. Supervisory-Addendum Brief Verification & Attestation Participated in pt care: history, MDM, physical Personally performed: exam, history, MDM, supervision of care Care discussed with: Medical Student Procedures: n/a Results interpretation: Verified all documentation Verification and Attestation of Medical Student E/M Service A medical student performed and documented this service in my presence. I reviewed and verified all information documented by the medical student and made modifications to such information, when appropriate. I personally performed the physical exam and medical decision making. Deedee Sylvester, Sep 04, 2020,15:57 ALAN YIP MED STUDENT Sep 04, 2020 07:17 DEEDEE SYLVESTER DO Sep 04, 2020 15:57
[2020-09-04] MEDS: ENOXAPARIN 40 MG/0.4 ML (LOVENOX) SYR SC SCH (08:23)
--- NOTE | 2020-09-04 10:37 | ST Dysphagia Evaluation ---
Speech Evaluation-General Medical Diagnosis Septic shock Onset Date: Aug 31, 2020 Therapy Diagnosis Therapy Diagnosis: Oropharyngeal Dysphagia Precautions Precautions: Aspiration Precautions/Isolations: Aspiration Referral Referring Physician: Dr. Mednoza Medical History Pertinent Medical History: Arthritis, DM, Dementia Social History Home: Assisted Speech PLF/Current-Dysphagia Prior Level of Function Patient lives in [facility] where he is assisted with his needs daily. Subjective Patient was cooperative with the Bedside Dysphagia Evaluation. Cognitive Status Patient Orientation: Person, Place, Normal For Age Oral Motor Skills Dentition: Natural Current Food Consistancy: Regular, Thin Liquids Ability to Follow Directions: Good Patient was reported to have choked on regular diet level at breakfast this morning. Oral Expression Ability: No Impairment Voice Voice Phonatory-Based Quality: Normal Voice Pitch: Normal Voice Loudness: Normal Face Facial Symmetry: Symmetrical Oral-Facial Assessment Oral-Facial Dentition: Normal Labial Seal Description: Normal Lingual Protrusion: Normal Lingual ROM: Normal Lingual Strength: Normal Pharynx Velopharyngeal Move.: Normal Volitional Dry Swallow: Yes Voluntary Cough: Yes Can Clear Throat Volitionally: Yes Dysphagia Evaluation Consistencies Presented: Regular, Thin Liquid, Mechanical Soft, Pureed Oral phase is within normal range of function for all consistencies but the regular (cracker) which required double swallow to clear. Pharyngeal phase is within normal range of function for all consistencies but the regular (cracker) which required double swallow to clear. Dietary Recommendations: Mechanical Soft Liquid Recommendations: Thin Swallowing Precautions: Alternate Liquids/Solids, Double Swallow, Decreased Bolus 1/2 Tsp, Decreased Rate of Oral Intake, Liquids from Straw, Small Bites and Sips, Sitting Upright 90 Degrees, Sitting 90 Degrees 30 Post Intake Dysphagia Evaluation Summary Patient was admitted to the ICU via ED from the [place] where he was noted to have Dyspnea, septic shock. Patient was initially placed on regular diet texture and thin liquids. He was referred today for BDE due to choking on breakfast. Patient was evaluated with thin liquids at 1/2 tsp and small sips via straw without difficulty. The patient was also given 1/2 tsp of puree, mechanical soft and regular textures. Patient did not have difficulty with puree or mechanical soft. He did exhibit mild difficulty with regular which required double swallow to clear. No coughing noted. Patient is recommended for Dysphagia II with thin liquids. This information was written on the white board in his room and provided to his nurse. Barriers to Learning Patient has dementia Speech-Plan Patient/Family Goals Patient/Family Goals: Patient will return to the NH upon discharge. Treatment Plan Speech Therapy Treatment Plan: Discontinue ST Treatment Duration: Sep 04, 2020 Frequency: 1 time per week Estimated Hrs Per Day: .25 hour per day Rehab Potential: Fair Barriers to Learning: Patient has dementia Pt/Family Agrees to Plan: Yes Safety Risks/Education Teaching Recipient: Patient Teaching Methods: Discussion Response to Teaching: Verbalize Understanding Education Topics Provided: Safety of oral intake, diet level Time Speech Therapy Time In: 10:00 Speech Therapy Time Out: 10:20 Total Billed Time: 20 Billed Treatment Time 1, ELY, DYST MEAGHAN Wu Sep 04, 2020 10:37
[2020-09-04] MEDS: inSUlin ASPART (NovoLOG) 1 UNIT/0.01 ML (CHARGE PER UNIT) SC SCH ×2 (17:04→20:24)
[2020-09-04] MEDS: TAMSULOSIN 0.4 MG (FLOMAX) CAP PO SCH (17:17)
--- NOTE | 2020-09-04 18:42 | Progress Note - Cardiology ---
Cardiology SOAP Progress Note Subjective: Does not report cp or palp or syncope Does not report n/v/d Notes some gen malaise and weakness Does not report shortness of breath Objective: I&O/Vital Signs 09/04/20 09/04/20 09/04/20 09/04/20 06:45 06:49 07:04 07:45 Pulse 54 66 55 B/P (MAP) 164/83 (110) 167/75 (105) Pulse Ox 90 95 90 O2 Delivery Vapotherm Vapotherm Vapotherm O2 Flow Rate 20.00 20.00 20.00 50.00 50.00 FiO2 50 09/04/20 09/04/20 09/04/20 09/04/20 07:46 08:00 08:45 09:45 Temp 36.4 Pulse 74 75 B/P (MAP) 161/86 (111) 152/82 (105) Pulse Ox 90 90 97 O2 Delivery Vapotherm Vapotherm Vapotherm O2 Flow Rate 20.00 20.00 20.00 50.00 50.00 FiO2 50 09/04/20 09/04/20 09/04/20 09/04/20 10:35 10:45 11:24 11:45 Pulse 59 70 B/P (MAP) 160/87 (111) 150/79 (102) Pulse Ox 96 96 90 94 O2 Delivery Vapotherm Vapotherm Vapotherm Vapotherm O2 Flow Rate 20.00 20.00 20.00 20.00 50.00 50.00 FiO2 50 50 09/04/20 09/04/20 09/04/20 09/04/20 11:49 12:45 13:09 13:45 Temp 36.6 Pulse 68 58 55 B/P (MAP) 168/78 (108) 160/71 (100) Pulse Ox 95 96 O2 Delivery Vapotherm Vapotherm O2 Flow Rate 20.00 20.00 50.00 50.00 09/04/20 09/04/20 09/04/20 09/04/20 14:23 14:45 15:04 15:22 Temp 36.9 Pulse 70 B/P (MAP) 162/83 (109) Pulse Ox 95 95 90 O2 Delivery Vapotherm Vapotherm Vapotherm O2 Flow Rate 20.00 20.00 20.00 50.00 FiO2 50 50 3/09/04/20 09/04/20 09/04/20 15:45 16:45 17:45 18:21 Pulse 64 65 68 B/P (MAP) 168/77 (107) 181/74 (109) 162/76 (104) Pulse Ox 94 94 93 95 O2 Delivery Vapotherm Vapotherm Vapotherm Vapotherm O2 Flow Rate 20.00 20.00 20.00 20.00 50.00 50.00 50.00 FiO2 50 09/04/20 00:00 Intake Total 2570 ml Output Total 1676 ml Balance 894 ml Weight (Pounds): 324 Weight (Ounces): 3.0 Weight (Calculated Kilograms): 147.389164 Constitutional: other (mildly confused in his repsonses) Respiratory: No accessory muscle use; other (fair to good, bilateral air entry) Cardiovascular: regular rate-rhythm, S1 and S2, systolic murmur (soft DILLON at card base) Gastrointestional: No tender; soft; No guarding, No rebound; audible bowel sounds Extremities: other (mild, bilat leg edema); No clubbing, No cyanosis Neurologic/Psychiatric: other (moves all limbs equally) Skin: normal color, warm/dry; No cool, No rash on exposed areas, No ulcerations on exposed areas Results/Procedures: Labs Laboratory Tests 09/04/20 03:37: White Blood Count 7.4, Red Blood Count 3.91L, Hemoglobin 10.9L, Hematocrit 36L, Mean Corpuscular Volume 91, Mean Corpuscular Hemoglobin 28, Mean Corpuscular Hemoglobin Concent 31L, Red Cell Distribution Width 14.8H, Platelet Count 400, Mean Platelet Volume 9.7, Immature Granulocyte % (Auto) 1, Neutrophils (%) (Auto) 75, Lymphocytes (%) (Auto) 7L, Monocytes (%) (Auto) 12, Eosinophils (%) (Auto) 5, Basophils (%) (Auto) 1, Neutrophils # (Auto) 5.5, Lymphocytes # (Auto) 0.5L, Monocytes # (Auto) 0.9, Eosinophils # (Auto) 0.4H, Basophils # (Auto) 0.1, Immature Granulocyte # (Auto) 0.1, Sodium Level 141, Potassium Level 3.6, Chloride Level 105, Carbon Dioxide Level 22, Anion Gap 14, Blood Urea Nitrogen 6L, Creatinine 0.62, Estimat Glomerular Filtration Rate > 60, BUN/Creatinine Ra jaylyn 10, Glucose Level 156H, Calcium Level 8.7 09/04/20 16:57: Glucometer 124H Microbiology 09/03/20 Gram Stain - Final, Resulted 09/03/20 Anaerobic Culture, Resulted Pending 09/03/20 Body Fluid Culture - Preliminary, Resulted Gram Positive Cocci In Chains 09/03/20 Fungal Culture 1 - Preliminary, Resulted 09/01/20 Urine Culture - Final, Complete NO GROWTH 09/01/20 MRSA Screen - Final, Complete MRSA not isolated 08/31/20 Blood Culture - Preliminary, Resulted No growth Laboratory Tests 09/03/20 02:45 09/04/20 03:37 A/P: Assessment: Sinus node dysfunction - 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 (no symptoms) Echo 09-02-20: LVEF 60-65%, PASP 40-45 mmHg Right lower lobe pneumonia and sepsis, improved, managed by primary care team Right-sided pleural effusion, questionable empyema, managed by primary care team Coronary artery disease, history of cardiac catheterization in 2012, nonobstructive coronary artery disease, no chest pain was reported at this time Diabetes mellitus, followed and managed by primary care physician Hypertension, not well controlled History of pannus cellulitis and left leg ulcer with cellulitis, currently stable Plan: * For hypertension, continue amlodipine and increase enalapril * For stroke prophylaxis, add apixaban * Stop enoxaparin after adding apixaban * Monitor labs * Monitor cardiac rhythm BELL TODD MD FACP [facility] Sep 04, 2020 18:42
--- NOTE | 2020-09-04 19:25 | Progress Note ---
Subjective Subjective/Events-last exam Patient w/o complaints today. States that he is feeling better. Coughed with breakfast this AM. Review of Systems Pulmonary: Dyspnea, Cough Cardiovascular: No: Chest Pain, Palpitations, Edema Gastrointestinal: No: Nausea, Vomiting, Abdominal Pain, Diarrhea, Constipation Neurological: Weakness, Incoordination Objective Exam Last Set of Vital Signs Vital Signs Date Time Temp Pulse Resp B/P (MAP) Pulse Ox O2 Delivery O2 Flow Rate FiO2 09/04/20 19:11 36.6 09/04/20 18:21 95 Vapotherm 20.00 50 09/04/20 17:45 68 162/76 (104) 09/04/20 05:00 16 Capillary Refill : Less Than 3 Seconds I&O Intake and Output 09/04/20 00:00 Intake Total 3940 ml Output Total 2876 ml Balance 1064 ml Intake Oral 1570 ml IV Total 2370 ml Output Urine Total 2875 ml Stool Total 1 ml General: Alert, Cooperative, No Acute Distress HEENT: Mucous Memb Moist/[place] Lungs: Other (diminished breath sounds this AM) Heart: Regular Rate, No Murmurs Abdomen: Normal Bowel Sounds, Soft, No Tenderness, No Masses Extremities: No Tenderness/Swelling, Other (1+ pitting edema bilaterally) Neuro: Normal Speech (forgetful) Results/Procedures Lab Laboratory Tests 09/04/20 03:37: White Blood Count 7.4, Red Blood Count 3.91L, Hemoglobin 10.9L, Hematocrit 36L, Mean Corpuscular Volume 91, Mean Corpuscular Hemoglobin 28, Mean Corpuscular Hemoglobin Concent 31L, Red Cell Distribution Width 14.8H, Platelet Count 400, Mean Platelet Volume 9.7, Immature Granulocyte % (Auto) 1, Neutrophils (%) (Auto) 75, Lymphocytes (%) (Auto) 7L, Monocytes (%) (Auto) 12, Eosinophils (%) (Auto) 5, Basophils (%) (Auto) 1, Neutrophils # (Auto) 5.5, Lymphocytes # (Auto) 0.5L, Monocytes # (Auto) 0.9, Eosinophils # (Auto) 0.4H, Basophils # (Auto) 0.1, Immature Granulocyte # (Auto) 0.1, Sodium Level 141, Potassium Level 3.6, Chloride Level 105, Carbon Dioxide Level 22, Anion Gap 14, Blood Urea Nitrogen 6L, Creatinine 0.62, Estimat Glomerular Filtration Rate > 60, BUN/Creatinine Ratio 10, Glucose Level 156H, Calcium Level 8.7 09/04/20 16:57: Glucometer 124H Microbiology 09/03/20 Gram Stain - Final, Resulted 09/03/20 Anaerobic Culture, Resulted Pending 09/03/20 Body Fluid Culture - Preliminary, Resulted Gram Positive Cocci In Chains 09/03/20 Fungal Culture 1 - Preliminary, Resulted 09/01/20 Urine Culture - Final, Complete NO GROWTH 09/01/20 MRSA Screen - Final, Complete MRSA not isolated 08/31/20 Blood Culture - Preliminary, Resulted No growth Assessment/Plan Assessment/Plan (1) Septic shock Status: Resolved Assessment & Plan: 09/02: HDS, continue broad spectrum antibiotics, blood cultures pending 09/03: NGTD, IR today for drainage of loculated fluid in lung 09/04: HDS, drain in right lung with purulent fluid (2) Acute respiratory failure with hypoxia Status: Acute Assessment & Plan: 09/02: Bipap was titrated to NC, doing well, MAT protocol 09/03: Patient on Vapotherm after procedure, will wean as tolerated 09/04: Continues on Vapotherm, will wean as tolerated, IS, deep breathing (3) Right lower lobe pneumonia Status: Acute Assessment & Plan: 09/02: Azithromycin/Zosyn/Vanc D3 09/03: D4 of antibiotics 09/04: D5 antibiotics, culture pending Qualifiers: Qualified Codes: J18.9 - Pneumonia, unspecified organism (4) Pleural effusion, right Status: Acute Assessment & Plan: 09/02: Loculated pleural effusion vs empyema, General surgery consulted, Possible IR intervention (5) CAD (coronary artery disease) Status: Chronic Assessment & Plan: 09/02: Cardiology consulted, appreciate recommendations, Echo with normal EF Qualifiers: Qualified Codes: I25.10 - Atherosclerotic heart disease of [place] coronary artery without angina pectoris (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 Assessment & Plan: 09/02: A1c pending, continue home insulin with SSI 09/04: A1c 7.0, Accuchecks/SSI (7) Urinary incontinence Status: Chronic Assessment & Plan: 09/02: Currently has hassan Qualifiers: Qualified Codes: N39.46 - Mixed incontinence (8) Hypertension Status: Chronic Assessment & Plan: 09/02: Meds being held 2/2 shock, will add back as needed Qualifiers: Qualified Codes: I10 - Essential (primary) hypertension (9) Dementia Status: Chronic Assessment & Plan: - Seems to be at baseline at this time Qualifiers: Qualified Codes: F03.90 - Unspecified dementia without behavioral disturbance (10) Dysphagia Status: Acute Assessment & Plan: 09/04: Swallow eval completed today, recommendation of mechanical soft diet Qualifiers: Qualified Codes: R13.10 - Dysphagia, unspecified (11) Debility Status: Chronic (12) DVT prophylaxis Status: Acute Assessment & Plan: - ROMMEL Boyd MD Sep 04, 2020 19:25
[2020-09-04] MEDS: GABAPENTIN 300 MG (NEURONTIN) CAP PO SCH (20:04)
[2020-09-04] MEDS: ENALAPRIL 10 MG (VASOTEC) TAB PO SCH (20:04)
[2020-09-04] MEDS: APIXABAN 5 MG (ELIQUIS) TABLET PO SCH (20:04)
[2020-09-04] MEDS ORDERED: ENALAPRIL 10 MG (VASOTEC) TAB PO SCH (21:00)
[2020-09-05] MEDS: RT-ALBUTEROL INHALER HFA (VENTOLIN HFA) 18 GM IH SCH ×6 (02:17→22:37)
[2020-09-05] MEDS: NOREPINEPHRINE 8 MG/250 ML 250 ML IV SCH ×3 (04:40→21:22)
[2020-09-05] MEDS: VASOPRESSIN INJECTION 20 UNIT in NS (IVPB) 100 ML IV SCH ×3 (04:40→21:22)
[2020-09-05 05:09] LABS: BASOPHILS % (AUTO) 1 % (0-10); EOSINOPHILS # (AUTO) 0.3 10^3/uL (0.0-0.3); EOSINOPHILS % (AUTO) 4 % (0-10); HEMATOCRIT 34 % (40-54); HEMOGLOBIN 10.4 g/dL (13.3-17.7); LYMPHOCYTES # (AUTO) 0.7 10^3/uL (1.0-4.0); LYMPHOCYTES % (AUTO) 12 % (12-44); MEAN CORPUSCULAR HEMOGLOBIN 28 pg (25-34); MEAN CORPUSCULAR HGB CONC 31 g/dL (32-36); MEAN CORPUSCULAR VOLUME 90 fL (80-99); MEAN PLATELET VOLUME 9.9 fL (9.0-12.2); MONOCYTES # (AUTO) 0.7 10^3/uL (0.0-1.0); MONOCYTES % (AUTO) 12 % (0-12); NEUTROPHILS # (AUTO) 4.1 10^3/uL (1.8-7.8); NEUTROPHILS % (AUTO) 69 % (42-75); PLATELET COUNT 429 10^3/uL (130-400); WHITE BLOOD COUNT 5.9 10^3/uL (4.3-11.0)
[2020-09-05] MEDS: AZITHROMYCIN INJECTION 500 MG in NS (IVPB) 250 ML IV SCH (05:23)
[2020-09-05 05:29] LABS: ALANINE AMINOTRANSFERASE 29 U/L (0-55); ALBUMIN 2.6 GM/DL (3.2-4.5); ALKALINE PHOSPHATASE 89 U/L (40-136); BILIRUBIN,TOTAL 0.4 MG/DL (0.1-1.0); BUN/CREATININE RATIO 11; CALCIUM 8.3 MG/DL (8.5-10.1); CARBON DIOXIDE 22 MMOL/L (21-32); CHLORIDE 101 MMOL/L (98-107); CREATININE SERUM 0.56 MG/DL (0.60-1.30); GFR ESTIMATED > 60; GLUCOSE 103 MG/DL (70-105); POTASSIUM 3.6 MMOL/L (3.6-5.0); SODIUM 138 MMOL/L (135-145)
[2020-09-05] MEDS: POTASSIUM CL 10MEQ/50ML IVPB 50 ML IV SCH (05:30)
[2020-09-05] MEDS: MAGNESIUM 1 GM/100 ML IVPB 100 ML IV SCH (05:30)
[2020-09-05] MEDS: KCL 20 MEQ TAB (K-DUR) PO SCH (05:30)
[2020-09-05] MEDS: inSUlin ASPART (NovoLOG) 1 UNIT/0.01 ML (CHARGE PER UNIT) SC SCH ×4 (05:32→21:29)
[2020-09-05 05:53] LABS: MAGNESIUM 1.8 MG/DL (1.6-2.4); PHOSPHORUS 2.7 MG/DL (2.3-4.7)
[2020-09-05] MEDS: PIPERACILLIN/TAZOBACTAM (BULK) 4.5 GM in NS (IVPB) 100 ML IV SCH (06:24)
--- NOTE | 2020-09-05 06:32 | Progress Note - Surgery ---
ALAN YIP MED STUDENT 09/05/20 0632: Subjective Date Seen by a Provider: Sep 05, 2020 Time Seen by a Provider: 06:10 Subjective/Events-last exam Pt. asleep upon entering. Aroused to verbal stimulation. Once awoke said "get the hell out of here, just let me sleep". Refused to answer questions and went back to sleep. Pigtail collection bag intact to dependent drainage with scant purulent drainage. Hassan in place with clear yellow urine. VSS per monitor. Review of Systems General: No Chills, No Night Sweats HEENT: No Head Aches, No Visual Changes Pulmonary: No Dyspnea, No Cough Cardiovascular: No: Chest Pain, Palpitations Gastrointestinal: No: Nausea, Vomiting Genitourinary: No Dysuria, No Frequency; Other (hassan in place) Musculoskeletal: No: neck pain, back pain Neurological: No: Weakness, Numbness Objective Exam Vital Signs Date Time Temp Pulse Resp B/P (MAP) Pulse Ox O2 Delivery O2 Flow Rate FiO2 09/05/20 04:00 95 Vapotherm 20.00 50 09/05/20 04:00 36.7 Vapotherm 20.00 50.00 09/05/20 03:00 64 137/65 (89) 92 Vapotherm 20.00 50.00 09/05/20 02:17 94 Vapotherm 20.00 50 09/05/20 02:00 54 151/74 (99) 94 Vapotherm 20.00 50.00 09/05/20 01:00 62 09/05/20 01:00 70 144/72 (96) 94 Vapotherm 20.00 50.00 09/05/20 00:00 58 137/75 (95) 92 Vapotherm 20.00 50.00 09/04/20 23:20 94 Vapotherm 20.00 50 09/04/20 23:15 36.7 Vapotherm 20.00 50.00 09/04/20 23:00 64 147/71 (96) 94 Vapotherm 20.00 50.00 09/04/20 22:38 93 Vapotherm 20.00 50 09/04/20 22:00 67 152/71 (98) 94 Vapotherm 20.00 50.00 09/04/20 21:00 63 150/74 (99) 94 Vapotherm 20.00 50.00 09/04/20 20:00 69 153/71 (98) 95 Vapotherm 20.00 50.00 09/04/20 19:55 93 Vapotherm 20.00 50 09/04/20 19:11 36.6 09/04/20 19:00 69 09/04/20 19:00 61 145/75 (98) 96 Vapotherm 20.00 50.00 09/04/20 19:00 Vapotherm 20.00 50.00 09/04/20 18:21 95 Vapotherm 20.00 50 09/04/20 17:45 68 162/76 (104) 93 Vapotherm 20.00 50.00 09/04/20 16:45 65 181/74 (109) 94 Vapotherm 20.00 50.00 09/04/20 15:45 64 168/77 (107) 94 Vapotherm 20.00 50.00 09/04/20 15:22 36.9 09/04/20 15:04 90 Vapotherm 20.00 50 09/04/20 14:45 70 162/83 (109) 95 Vapotherm 20.00 50.00 09/04/20 14:23 95 Vapotherm 20.00 50 09/04/20 13:45 55 160/71 (100) 96 Vapotherm 20.00 50.00 09/04/20 13:09 58 09/04/20 12:45 68 168/78 (108) 95 Vapotherm 20.00 50.00 09/04/20 11:49 36.6 09/04/20 11:45 70 150/79 (102) 94 Vapotherm 20.00 50.00 09/04/20 11:24 90 Vapotherm 20.00 50 09/04/20 10:45 59 160/87 (111) 96 Vapotherm 20.00 50.00 09/04/20 10:35 96 Vapotherm 20.00 50 09/04/20 09:45 75 152/82 (105) 97 Vapotherm 20.00 50.00 09/04/20 08:45 74 161/86 (111) 90 Vapotherm 20.00 50.00 09/04/20 08:00 90 Vapotherm 20.00 50 09/04/20 07:46 36.4 09/04/20 07:45 55 167/75 (105) 90 Vapotherm 20.00 50.00 09/04/20 07:04 95 Vapotherm 20.00 50 09/04/20 06:49 66 09/04/20 06:45 54 164/83 (110) 90 Vapotherm 20.00 50.00 I & O 09/05/20 07:00 Intake Total 2495 ml Output Total 4720 ml Balance -2225 ml Capillary Refill : Less Than 3 Seconds General Appearance: No Apparent Distress, Chronically ill, Obese HEENT: PERRL/EOMI Neck: Normal Inspection, Non Tender Respiratory: Chest Non Tender, No Accessory Muscle Use, No Respiratory Distress, Crackles (bilaterally bases) Cardiovascular: Regular Rate, Rhythm, Normal Peripheral Pulses Peripheral Pulses: 2+ Dorsalis Pedis (R), 2+ Left Dors-Pedis (L), 2+ Radial Pulses (R), 2+ Radial Pulses (L) Gastrointestinal: normal bowel sounds, non tender, soft Extremity: Normal Capillary Refill, Normal Inspection, Non Tender Neurologic/Psychiatric: Alert, Oriented x3 Skin: Normal Color, Warm/Dry Lymphatic: No Adenopathy Results Lab Laboratory Tests 09/04/20 16:57: Glucometer 124H 09/04/20 20:21: Glucometer 137H 09/05/20 04:37: White Blood Count 5.9, Red Blood Count 3.74L, Hemoglobin 10.4L, Hematocrit 34L, Mean Corpuscular Volume 90, Mean Corpuscular Hemoglobin 28, Mean Corpuscular Hemoglobin Concent 31L, Red Cell Distribution Width 14.5, Platelet Count 429H, Mean Platelet Volume 9.9, Immature Granulocyte % (Auto) 2, Neutrophils (%) (Auto) 69, Lymphocytes (%) (Auto) 12, Monocytes (%) (Auto) 12, Eosinophils (%) (Auto) 4, Basophils (%) (Auto) 1, Neutrophils # (Auto) 4.1, Lymphocytes # (Auto) 0.7L, Monocytes # (Auto) 0.7, Eosinophils # (Auto) 0.3, Basophils # (Auto) 0.0, Immature Granulocyte # (Auto) 0.1, Sodium Level 138, Potassium Level 3.6, Chloride Level 101, Carbon Dioxide Level 22, Anion Gap 15H, Blood Urea Nitrogen 6L, Creatinine 0.56L, Estimat Glomerular Filtration Rate > 60, BUN/Creatinine Ratio 11, Glucose Level 103, Calcium Level 8.3L, Corrected Calcium 9.4, Phosphorus Level 2.7, Magnesium Level 1.8, Total Bilirubin 0.4, Aspartate Amino Transf (AST/SGOT) 30, Alanine Aminotransferase (ALT/SGPT) 29, Alkaline Phosphatase 89, Total Protein 6.0L, Albumin 2.6L Microbiology 09/03/20 Gram Stain - Final, Resulted 09/03/20 Anaerobic Culture, Resulted Pending 09/03/20 Body Fluid Culture - Preliminary, Resulted Gram Positive Cocci In Chains 09/03/20 Fungal Culture 1 - Preliminary, Resulted 09/01/20 Urine Culture - Final, Complete NO GROWTH 09/01/20 MRSA Screen - Final, Complete MRSA not isolated 08/31/20 Blood Culture - Preliminary, Resulted No growth Assessment/Plan Assessment/Plan Assessment/Plan S/P pigtail drain placement to R chest Right lower lobe pneumonia Right chest parapneumonic effusion versus empyema small to moderate Anemia- Hgb 10.4 today Morbid obesity Severe sepsis-Resolved Shortness of breath CAD Diabetes mellitus insulin dependent Patient had drain placed to R lung 09-03, purulent output in collection bag irrigate bag per protocol Continue current medical management. Diabetic diet as tolerated Hgb 10.4 today, down from 10.9 yesterday, continue to monitor Encourage Cough and deep breath. IS q 1hr WA. Prelim report on pleural fluid gram + cocci in chains DEEDEE SYLVESTER DO 09/05/20 1507: Subjective Subjective/Events-last exam Patient states breathing may be a little bit easier. Having drainage from the pigtail catheter that slightly purulent in appearance. Patient states he does better with certain foods and certain ones that do not cause him to cough. Chest x-ray slightly improved with pigtail catheter noted in the right chest. Objective Exam General Appearance: No Apparent Distress, Chronically ill, Obese HEENT: PERRL/EOMI Neck: Normal Inspection, Non Tender Respiratory: Chest Non Tender, No Accessory Muscle Use, No Respiratory Distress, Crackles (bilaterally bases) Cardiovascular: Regular Rate, Rhythm, No JVD Gastrointestinal: normal bowel sounds, non tender, soft Extremity: Normal Capillary Refill, Normal Inspection, Non Tender Neurologic/Psychiatric: Alert, Oriented x3 Skin: Normal Color, Warm/Dry Lymphatic: No Adenopathy Assessment/Plan Assessment/Plan Assessment/Plan S/P pigtail drain placement to R chest Right lower lobe pneumonia Right chest parapneumonic effusion versus empyema small to moderate Anemia- Hgb 10.4 today Morbid obesity Severe sepsis-Resolved Shortness of breath CAD Diabetes mellitus insulin dependent Patient had drain placed to R lung 3-16, purulent output in collection bag irrigate pigtail per protocol Continue antibiotics Continue current medical management. Diabetic diet as tolerated Hgb 10.4 today, down from 10.9 yesterday, continue to monitor Encourage Cough and deep breath. IS q 1hr WA. Prelim report on pleural fluid gram + cocci in chains Supervisory-Addendum Brief Verification & Attestation Participated in pt care: history, MDM, physical Personally performed: exam, history, MDM, supervision of care Care discussed with: Medical Student Procedures: n/a Results interpretation: Verified all documentation Verification and Attestation of Medical Student E/M Service A medical student performed and documented this service in my presence. I reviewed and verified all information documented by the medical student and made modifications to such information, when appropriate. I personally performed the physical exam and medical decision making. Deedee Sylvester, Sep 05, 2020,15:07 ALAN YIP MED STUDENT Sep 05, 2020 06:32 DEEDEE SYLVESTER DO Sep 05, 2020 15:07
--- NOTE | 2020-09-05 07:31 | Diagnostic Imaging Report ---
CHEST 1 VIEW, AP/PA ONLY Indication: Respiratory distress. Comparison: 09/04/2020 Findings: Stable small bore chest tube on the right. No pneumothorax. Potential trace residual right pleural effusion. Right basilar pulmonary opacities are unchanged. Left basilar linear atelectasis is unchanged. Stable enlargement of cardiac silhouette. Impression: 1. Stable small bore pigtail catheter on the right with trace residual right pleural effusion. 2. No change in basilar pulmonary opacities that could be due to atelectasis and/or pneumonia. Dictated by: Dictated on workstation # [id number]
[2020-09-05] MEDS ORDERED: KCL 20 MEQ TAB (K-DUR) PO ONE (08:00)
--- NOTE | 2020-09-05 09:00 | Progress Note - Cardiology ---
Cardiology SOAP Progress Note Subjective: Somnolent, awakens, does not report symptoms Objective: I&O/Vital Signs 09/04/20 09/04/20 09/04/20 09/04/20 21:00 22:00 22:38 23:00 Pulse 63 67 64 B/P (MAP) 150/74 (99) 152/71 (98) 147/71 (96) Pulse Ox 94 94 93 94 O2 Delivery Vapotherm Vapotherm Vapotherm Vapotherm O2 Flow Rate 20.00 20.00 20.00 20.00 50.00 50.00 50.00 FiO2 50 09/04/20 09/04/20 09/05/20 09/05/20 23:15 23:20 00:00 01:00 Temp 36.7 Pulse 58 70 B/P (MAP) 137/75 (95) 144/72 (96) Pulse Ox 94 92 94 O2 Delivery Vapotherm Vapotherm Vapotherm Vapotherm O2 Flow Rate 20.00 20.00 20.00 20.00 50.00 50.00 50.00 FiO2 50 09/05/20 09/05/20 09/05/20 09/05/20 01:00 02:00 02:17 03:00 Pulse 62 54 64 B/P (MAP) 151/74 (99) 137/65 (89) Pulse Ox 94 94 92 O2 Delivery Vapotherm Vapotherm Vapotherm O2 Flow Rate 20.00 20.00 20.00 50.00 50.00 FiO2 50 09/05/20 09/05/20 09/05/20 09/05/20 04:00 04:00 04:00 05:00 Temp 36.7 Pulse 62 64 B/P (MAP) 152/70 (97) 152/71 (98) Pulse Ox 92 95 93 O2 Delivery Vapotherm Vapotherm Vapotherm Vapotherm O2 Flow Rate 20.00 20.00 20.00 20.00 50.00 50.00 50.00 FiO2 50 09/05/20 09/05/20 09/05/20 09/05/20 06:00 06:36 06:52 08:14 Temp 36.4 Pulse 62 58 62 B/P (MAP) 151/67 (95) Pulse Ox 93 95 92 O2 Delivery Vapotherm Vapotherm Vapotherm O2 Flow Rate 20.00 20.00 20.00 50.00 50.00 FiO2 50 09/05/20 00:00 Intake Total 1425 ml Output Total 2790 ml Balance -1365 ml Weight (Pounds): 324 Weight (Ounces): 3.0 Weight (Calculated Kilograms): 147.853352 Constitutional: other (mildly confused in his repsonses) Respiratory: No accessory muscle use; other (fair to good, bilateral air entry) Cardiovascular: regular rate-rhythm, S1 and S2, systolic murmur (soft DILLON at card base) Gastrointestional: No tender; soft; No guarding, No rebound; audible bowel sounds Extremities: other (mild, bilat leg edema); No clubbing, No cyanosis Neurologic/Psychiatric: other (moves all limbs equally) Skin: normal color, warm/dry; No cool, No rash on exposed areas, No ulcerations on exposed areas Results/Procedures: Labs Laboratory Tests 09/04/20 16:57: Glucometer 124H 09/04/20 20:21: Glucometer 137H 09/05/20 04:37: White Blood Count 5.9, Red Blood Count 3.74L, Hemoglobin 10.4L, Hematocrit 34L, Mean Corpuscular Volume 90, Mean Corpuscular Hemoglobin 28, Mean Corpuscular Hemoglobin Concent 31L, Red Cell Distribution Width 14.5, Platelet Count 429H, Mean Platelet Volume 9.9, Immature Granulocyte % (Auto) 2, Neutrophils (%) (Auto) 69, Lymphocytes (%) (Auto) 12, Monocytes (%) (Auto) 12, Eosinophils (%) (Auto) 4, Basophils (%) (Auto) 1, Neutrophils # (Auto) 4.1, Lymphocytes # (Auto) 0.7L, Monocytes # (Auto) 0.7, Eosinophils # (Auto) 0.3, Basophils # (Auto) 0.0, Immature Granulocyte # (Auto) 0.1, Sodium Level 138, Potassium Level 3.6, Chloride Level 101, Carbon Dioxide Level 22, Anion Gap 15H, Blood Urea Nitrogen 6L, Creatinine 0.56L, Estimat Glomerular Filtration Rate > 60, BUN/Creatinine Ratio 11, Glucose Level 103, Calcium Level 8.3L, Corrected Calcium 9.4, Phosphorus Level 2.7, Magnesium Level 1.8, Total Bilirubin 0.4, Aspartate Amino Transf (AST/SGOT) 30, Alanine Aminotransferase (ALT/SGPT) 29, Alkaline Phosphatase 89, Total Protein 6.0L, Albumin 2.6L Microbiology 09/03/20 Gram Stain - Final, Resulted 09/03/20 Anaerobic Culture, Resulted Pending 09/03/20 Body Fluid Culture - Preliminary, Resulted Strep Or Related Genus 09/03/20 Fungal Culture 1 - Preliminary, Resulted 09/01/20 Urine Culture - Final, Complete NO GROWTH 09/01/20 MRSA Screen - Final, Complete MRSA not isolated 08/31/20 Blood Culture - Preliminary, Resulted No growth Laboratory Tests 09/04/20 03:37 09/05/20 04:37 A/P: Assessment: Sinus node dysfunction - 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 (no symptoms) Echo 09-02-20: LVEF 60-65%, PASP 40-45 mmHg Right lower lobe pneumonia and sepsis, improved, managed by primary care team Right-sided pleural effusion, questionable empyema, managed by primary care team Coronary artery disease, history of cardiac catheterization in 2012, nonobstruc tive coronary artery disease, no chest pain was reported at this time Diabetes mellitus, followed and managed by primary care physician Hypertension History of pannus cellulitis and left leg ulcer with cellulitis, currently stable Plan: * Continue amlodipine and enalapril for hypertension * Continue apixaban for stroke prophylaxis * Monitor labs * Monitor cardiac rhythm BELL TODD MD FACP [facility] Sep 05, 2020 09:00
[2020-09-05] MEDS: ENALAPRIL 10 MG (VASOTEC) TAB PO SCH ×2 (09:41→20:22)
[2020-09-05] MEDS: amLODIPine 10 MG (NORVASC) TAB PO SCH (09:41)
[2020-09-05] MEDS: ASPIRIN E.C. 81 MG (ECOTRIN) TAB PO SCH (09:41)
[2020-09-05] MEDS: APIXABAN 5 MG (ELIQUIS) TABLET PO SCH ×2 (09:41→20:22)
[2020-09-05] MEDS: FINASTERIDE (PROSCAR) 5 MG TAB PO SCH (09:42)
[2020-09-05] MEDS: GABAPENTIN 300 MG (NEURONTIN) CAP PO SCH ×2 (09:42→20:22)
[2020-09-05] MEDS: LACTATED RINGERS 1,000 ML IV SCH (09:43)
--- NOTE | 2020-09-05 13:18 | ST Dysphagia Evaluation ---
Speech Evaluation-General Medical Diagnosis Septic shock Onset Date: Aug 31, 2020 Therapy Diagnosis Therapy Diagnosis: Oropharyngeal Dysphagia Precautions Precautions: Aspiration Referral Referring Physician: Dr. Mendoza Medical History Pertinent Medical History: Arthritis, DM, Dementia Social History Home: Senior Living Speech PLF/Current-Dysphagia Prior Level of Function Patient is a [place] resident who is assisted with his daily needs by staff. Subjective Patient was cooperative with the Bedside Dysphagia Evaluation. Oral Motor Skills Dentition: Natural Current Food Consistancy: Mechanical Soft, Thin Liquids Patient was placed on a modified diet yesterday with ground meats. He was r eported today that he has continued to choke on ground meats. Oral Expression Ability: No Impairment Voice Voice Phonatory-Based Quality: Normal Voice Pitch: Normal Voice Loudness: Normal Face Facial Symmetry: Symmetrical Oral-Facial Assessment Oral-Facial Dentition: Normal Labial Seal Description: Normal Smile: Normal Lingual Protrusion: Normal Lingual ROM: Normal Lingual Strength: Normal Pharynx Velopharyngeal Move.: Normal Volitional Dry Swallow: Yes Voluntary Cough: Yes Dysphagia Evaluation Consistencies Presented: Thin Liquid, Mechanical Soft, Pureed Oral phase is within normal range of function for all presented textures. Pharyngeal phase is within normal range of function for all presented textures. Dietary Recommendations: Pureed Liquid Recommendations: Thin Swallowing Precautions: Alternate Liquids/Solids, Double Swallow, Decreased Bolus 1/2 Tsp, Decreased Rate of Oral Intake, Liquids from Straw, Small Bites and Sips, Sitting Upright 90 Degrees, Sitting 90 Degrees 30 Post Intake Dysphagia Evaluation Summary Patient was reported as choking on regular texture on 09/04/2020. Patient completed a Bedside Dysphagia Evaluation with a downgrade to Dysphagia II with thin liquids. Patient was reported today as choking on ground meats. A repeat BDE was completed with another downgrade to Dysphagia I with thin liquids. This information was provided to nursing and written on the white board in his room. Barriers to Learning Patient has dementia. Speech-Plan Patient/Family Goals Patient/Family Goals: Patient will return to the [place] upon discharge. Treatment Plan Speech Therapy Treatment Plan: Discontinue ST Treatment Duration: Sep 05, 2020 Frequency: 1 time per week Estimated Hrs Per Day: .25 hour per day Rehab Potential: Fair Barriers to Learning: Patient has dementia. Pt/Family Agrees to Plan: Yes Safety Risks/Education Teaching Recipient: Patient Teaching Methods: Discussion Response to Teaching: Verbalize Understanding Education Topics Provided: Diet level and safe intake strategies Time Speech Therapy Time In: 12:45 Speech Therapy Time Out: 13:00 Total Billed Time: 15 Billed Treatment Time 1, MARI[facility] GRAVES [facility] 13:18
[2020-09-05 13:40] VITALS: BP 145/59
[2020-09-05] MEDS: TAMSULOSIN 0.4 MG (FLOMAX) CAP PO SCH (17:16)
[2020-09-05] MEDS: cefTRIAXone 2,000 MG/SWFI 20 ML IV PUSH IV SCH ×2 (20:21)
--- NOTE | 2020-09-05 21:38 | Progress Note ---
Subjective Subjective/Events-last exam Patient feeling much better this AM. Eating breakfast. Tolerating PO diet. Review of Systems Pulmonary: Dyspnea, Cough Cardiovascular: No: Chest Pain, Palpitations Gastrointestinal: No: Nausea, Vomiting, Abdominal Pain, Diarrhea, Constipation Neurological: Weakness, Incoordination Objective Exam Last Set of Vital Signs Vital Signs Date Time Temp Pulse Resp B/P (MAP) Pulse Ox O2 Delivery O2 Flow Rate FiO2 09/05/20 20:01 36.4 09/05/20 20:00 94 High Flow N/C 5.00 09/05/20 19:47 78 09/05/20 19:00 09/05/20 18:00 18 09/05/20 16:22 50 Capillary Refill : Less Than 3 Seconds I&O Intake and Output 09/05/20 00:00 Intake Total 3375 ml Output Total 5660 ml Balance -2285 ml Intake Oral 2255 ml IV Total 1120 ml Output Urine Total 5500 ml Drainage Total 160 ml General: Alert, Cooperative, Mild Distress (with moderate activity) Lungs: Clear to Auscultation, Normal Air Movement Heart: Regular Rate, No Murmurs Abdomen: Normal Bowel Sounds, Soft, No Tenderness, No Masses Extremities: Other (1+ pitting edema bilaterally) Skin: No Rashes Neuro: Normal Speech, Sensation Intact Psych/Mental Status: Mental Status NL, Mood NL Results/Procedures Lab Laboratory Tests 09/05/20 04:37: White Blood Count 5.9, Red Blood Count 3.74L, Hemoglobin 10.4L, Hematocrit 34L, Mean Corpuscular Volume 90, Mean Corpuscular Hemoglobin 28, Mean Corpuscular Hemoglobin Concent 31L, Red Cell Distribution Width 14.5, Platelet Count 429H, Mean Platelet Volume 9.9, Immature Granulocyte % (Auto) 2, Neutrophils (%) (Auto) 69, Lymphocytes (%) (Auto) 12, Monocytes (%) (Auto) 12, Eosinophils (%) (Auto) 4, Basophils (%) (Auto) 1, Neutrophils # (Auto) 4.1, Lymphocytes # (Auto) 0.7L, Monocytes # (Auto) 0.7, Eosinophils # (Auto) 0.3, Basophils # (Auto) 0.0, Immature Granulocyte # (Auto) 0.1, Sodium Level 138, Potassium Level 3.6, Chloride Level 101, Carbon Dioxide Level 22, Anion Gap 15H, Blood Urea Nitrogen 6L, Creatinine 0.56L, Estimat Glomerular Filtration Rate > 60, BUN/Creatinine Ratio 11, Glucose Level 103, Calcium Level 8.3L, Corrected Calcium 9.4, Phosphorus Level 2.7, Magnesium Level 1.8, Total Bilirubin 0.4, Aspartate Amino Transf (AST/SGOT) 30, Alanine Aminotransferase (ALT/SGPT) 29, Alkaline Phosphatase 89, Total Protein 6.0L, Albumin 2.6L 09/05/20 11:25: Glucometer 123H 09/05/20 16:41: Glucometer 151H 09/05/20 20:34: Glucometer 197H Microbiology 09/03/20 Gram Stain - Final, Resulted 09/03/20 Anaerobic Culture - Preliminary, Resulted No anaerobes isolated 09/03/20 Body Fluid Culture - Preliminary, Resulted Strep anginosus 09/03/20 Fungal Culture 1 - Preliminary, Resulted 09/01/20 Urine Culture - Final, Complete NO GROWTH 09/01/20 MRSA Screen - Final, Complete MRSA not isolated 08/31/20 Blood Culture - Preliminary, Resulted No growth Assessment/Plan Assessment/Plan (1) Empyema Status: Acute Assessment & Plan: 09/05: Currently with drain in place, spoke with [facility] and Dr Childs and we are going to try TPA to break up the loculations, will discuss with family if VATS procedure is something they would like to pursue if this does not help (2) Acute respiratory failure with hypoxia Status: Acute Assessment & Plan: 09/02: Bipap was titrated to NC, doing well, MAT protocol 09/03: Patient on Vapotherm after procedure, will wean as tolerated 09/04: Continues on Vapotherm, will wean as tolerated, IS, deep breathing 09/05: Improving, now on HFNC (3) Right lower lobe pneumonia Status: Acute Assessment & Plan: 09/02: Azithromycin/Zosyn/Vanc D3 09/03: D4 of antibiotics 09/04: D5 antibiotics, culture pending Qualifiers: Qualified Codes: J18.9 - Pneumonia, unspecified organism (4) Septic shock Status: Resolved Assessment & Plan: 09/02: HDS, continue broad spectrum antibiotics, blood cultures pending 09/03: NGTD, IR today for drainage of loculated fluid in lung 09/04: HDS, drain in right lung with purulent fluid (5) CAD (coronary artery disease) Status: Chronic Assessment & Plan: 09/02: Cardiology consulted, appreciate recommendations, Echo with normal EF Qualifiers: Qualified Codes: I25.10 - Atherosclerotic heart disease of [place] coronary artery without angina pectoris (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 Assessment & Plan: 09/02: A1c pending, continue home insulin with SSI 09/04: A1c 7.0, Accuchecks/SSI (7) Urinary incontinence Status: Chronic Assessment & Plan: 09/02: Currently has hassan Qualifiers: Qualified Codes: N39.46 - Mixed incontinence (8) Hypertension Status: Chronic Assessment & Plan: 09/02: Meds being held 2/2 shock, will add back as needed Qualifiers: Qualified Codes: I10 - Essential (primary) hypertension (9) Dementia Status: Chronic Assessment & Plan: - Seems to be at baseline at this time Qualifiers: Qualified Codes: F03.90 - Unspecified dementia without behavioral disturbance (10) Dysphagia Status: Acute Assessment & Plan: 09/04: Swallow eval completed today, recommendation of mechanical soft diet Qualifiers: Qualified Codes: R13.10 - Dysphagia, unspecified (11) Debility Status: Chronic Assessment & Plan: - Baseline is wheel chair bound and assist x 1 to get to wheelchair (12) DVT prophylaxis Status: Acute Assessment & Plan: - ROMMEL Boyd MD Sep 05, 2020 21:38
[2020-09-05] MEDS: ACETAMINOPHEN 500 MG TAB (TYLENOL) PO PRN (23:09)
[2020-09-06] MEDS: RT-ALBUTEROL INHALER HFA (VENTOLIN HFA) 18 GM IH SCH ×6 (01:43→21:37)
[2020-09-06 03:28] LABS: BASOPHILS # (AUTO) 0.1 10^3/uL (0.0-0.1); BASOPHILS % (AUTO) 1 % (0-10); EOSINOPHILS # (AUTO) 0.3 10^3/uL (0.0-0.3); EOSINOPHILS % (AUTO) 4 % (0-10); HEMATOCRIT 36 % (40-54); HEMOGLOBIN 10.9 g/dL (13.3-17.7); LYMPHOCYTES # (AUTO) 0.8 10^3/uL (1.0-4.0); LYMPHOCYTES % (AUTO) 12 % (12-44); MEAN CORPUSCULAR HEMOGLOBIN 28 pg (25-34); MEAN CORPUSCULAR HGB CONC 31 g/dL (32-36); MEAN CORPUSCULAR VOLUME 90 fL (80-99); MEAN PLATELET VOLUME 9.3 fL (9.0-12.2); MONOCYTES # (AUTO) 0.9 10^3/uL (0.0-1.0); MONOCYTES % (AUTO) 13 % (0-12); NEUTROPHILS # (AUTO) 4.3 10^3/uL (1.8-7.8); NEUTROPHILS % (AUTO) 67 % (42-75); PLATELET COUNT 432 10^3/uL (130-400); WHITE BLOOD COUNT 6.4 10^3/uL (4.3-11.0)
[2020-09-06 03:50] LABS: BUN/CREATININE RATIO 9; CALCIUM 8.7 MG/DL (8.5-10.1); CARBON DIOXIDE 22 MMOL/L (21-32); CHLORIDE 101 MMOL/L (98-107); CREATININE SERUM 0.55 MG/DL (0.60-1.30); GFR ESTIMATED > 60; GLUCOSE 132 MG/DL (70-105); MAGNESIUM 1.7 MG/DL (1.6-2.4); PHOSPHORUS 2.4 MG/DL (2.3-4.7); POTASSIUM 3.8 MMOL/L (3.6-5.0); SODIUM 137 MMOL/L (135-145)
[2020-09-06] MEDS: MAGNESIUM 1 GM/100 ML IVPB 100 ML IV SCH (04:00)
[2020-09-06] MEDS: POTASSIUM CL 10MEQ/50ML IVPB 50 ML IV SCH (04:00)
[2020-09-06] MEDS: KCL 20 MEQ TAB (K-DUR) PO SCH (04:01)
[2020-09-06] MEDS: VASOPRESSIN INJECTION 20 UNIT in NS (IVPB) 100 ML IV SCH (04:01)
[2020-09-06] MEDS: inSUlin ASPART (NovoLOG) 1 UNIT/0.01 ML (CHARGE PER UNIT) SC SCH ×4 (04:01→21:10)
[2020-09-06] MEDS: LACTATED RINGERS 1,000 ML IV SCH (05:21)
--- NOTE | 2020-09-06 07:16 | Progress Note - Surgery ---
ALAN YIP MED STUDENT 09/06/20 0716: Subjective Date Seen by a Provider: Sep 06, 2020 Time Seen by a Provider: 06:40 Subjective/Events-last exam Patient asleep upon entering room. Awoke to voice. Disoriented to place, time, and situation. Oriented to self. Denies chest pain, SOB, abdominal pain and nausea. Denies pain. Voices wanting to be left alone so he can go back to sleep. Review of Systems General: No Chills, No Night Sweats HEENT: No Head Aches, No Visual Changes Pulmonary: No Dyspnea, No Cough Cardiovascular: No: Chest Pain, Palpitations, Orthopnea Gastrointestinal: No: Nausea, Vomiting, Abdominal Pain Genitourinary: No Dysuria, No Frequency; Other (hassan in place) Musculoskeletal: No: neck pain, back pain Neurological: No: Weakness, Numbness Objective Exam Vital Signs Date Time Temp Pulse Resp B/P (MAP) Pulse Ox O2 Delivery O2 Flow Rate FiO2 09/06/20 06:26 95 High Flow N/C 5.00 09/06/20 06:00 62 140/66 (90) 94 High Flow N/C 5.00 09/06/20 05:00 61 140/66 (90) 96 High Flow N/C 5.00 09/06/20 04:00 61 124/53 (76) 95 High Flow N/C 5.00 09/06/20 03:45 93 High Flow N/C 5.00 09/06/20 03:45 37.0 High Flow N/C 5.00 09/06/20 03:00 65 139/64 (89) 95 High Flow N/C 5.00 09/06/20 02:00 65 122/57 (78) 93 High Flow N/C 5.00 09/06/20 01:43 94 High Flow N/C 5.00 09/06/20 01:00 63 137/68 (91) 87 High Flow N/C 5.00 09/06/20 00:32 78 09/06/20 00:00 79 128/65 (86) 95 High Flow N/C 5.00 09/05/20 23:10 36.9 High Flow N/C 5.00 09/05/20 23:10 92 High Flow N/C 5.00 09/05/20 23:00 76 128/63 (84) 91 High Flow N/C 5.00 09/05/20 22:41 94 High Flow N/C 5.00 09/05/20 22:00 71 137/69 (91) 96 High Flow N/C 5.00 09/05/20 21:00 72 134/68 (90) 94 High Flow N/C 5.00 09/05/20 20:01 36.4 09/05/20 20:00 94 High Flow N/C 5.00 09/05/20 20:00 71 131/65 (87) 96 High Flow N/C 5.00 09/05/20 19:47 78 09/05/20 19:00 75 115/63 (80) 97 High Flow N/C 5.00 09/05/20 19:00 High Flow N/C 5.00 09/05/20 18:48 95 High Flow N/C 6.00 09/05/20 18:00 90 18 126/76 (93) 95 High Flow N/C 3.00 09/05/20 17:00 71 20 126/76 (93) 96 High Flow N/C 3.00 09/05/20 16:22 91 Vapotherm 20.00 50 09/05/20 16:00 71 20 146/80 (102) 96 High Flow N/C 3.00 09/05/20 15:33 36.5 09/05/20 15:00 73 20 152/71 (98) 94 High Flow N/C 3.00 09/05/20 14:39 95 High Flow N/C 8.00 09/05/20 14:07 76 20 159/72 (101) 93 High Flow N/C 3.00 09/05/20 13:40 36.9 80 95 09/05/20 12:45 69 145/59 (87) 96 High Flow N/C 8.00 09/05/20 12:35 77 09/05/20 12:27 91 Vapotherm 20.00 50 09/05/20 12:02 36.9 09/05/20 11:45 75 143/81 (101) 91 High Flow N/C 8.00 09/05/20 10:45 70 150/65 (93) 91 High Flow N/C 8.00 09/05/20 10:29 High Flow N/C 8.00 09/05/20 10:28 93 High Flow N/C 8.00 09/05/20 09:45 83 164/79 (107) 89 Vapotherm 20.00 50.00 09/05/20 08:45 53 158/80 (106) 93 Vapotherm 20.00 50.00 09/05/20 08:45 91 Vapotherm 20.00 50 09/05/20 08:14 36.4 62 151/67 (95) 92 Vapotherm 20.00 50.00 09/05/20 07:45 55 151/67 (95) 93 Vapotherm 20.00 50.00 I & O 09/06/20 07:00 Intake Total 4460 ml Output Total 5320 ml Balance -860 ml Capillary Refill : Less Than 3 Seconds General Appearance: No Apparent Distress, Chronically ill, Obese HEENT: PERRL/EOMI Neck: Normal Inspection, Non Tender Respiratory: Chest Non Tender, No Accessory Muscle Use, No Respiratory Distress, Decreased Breath Sounds (Breath sounds Right chest decreased.), Rhonci Cardiovascular: Regular Rate, Rhythm, Normal Peripheral Pulses Peripheral Pulses: 2+ Dorsalis Pedis (R), 2+ Left Dors-Pedis (L), 2+ Radial Pulses (R), 2+ Radial Pulses (L) Gastrointestinal: normal bowel sounds, non tender, soft Extremity: Normal Capillary Refill, Normal Inspection, Non Tender, Swelling (BLE non pitting edema) Neurologic/Psychiatric: Alert, Oriented x3 Skin: Normal Color, Warm/Dry Lymphatic: No Adenopathy Results Lab Laboratory Tests 09/05/20 11:25: Glucometer 123H 09/05/20 16:41: Glucometer 151H 09/05/20 20:34: Glucometer 197H 09/06/20 03:20: White Blood Count 6.4, Red Blood Count 3.96L, Hemoglobin 10.9L, Hematocrit 36L, Mean Corpuscular Volume 90, Mean Corpuscular Hemoglobin 28, Mean Corpuscular Hemoglobin Concent 31L, Red Cell Distribution Width 14.5, Platelet Count 432H, Mean Platelet Volume 9.3, Immature Granulocyte % (Auto) 3, Neutrophils (%) (Auto) 67, Lymphocytes (%) (Auto) 12, Monocytes (%) (Auto) 13H, Eosinophils (%) (Auto) 4, Basophils (%) (Auto) 1, Neutrophils # (Auto) 4.3, Lymphocytes # (Auto) 0.8L, Monocytes # (Auto) 0.9, Eosinophils # (Auto) 0.3, Basophils # (Auto) 0.1, Immature Granulocyte # (Auto) 0.2H, Sodium Level 137, Potassium Level 3.8, Chloride Level 101, Carbon Dioxide Level 22, Anion Gap 14, Blood Urea Nitrogen 5L, Creatinine 0.55L, Estimat Glomerular Filtration Rate > 60, BUN/Creatinine Ratio 9, Glucose Level 132H, Calcium Level 8.7, Phosphorus Level 2.4, Magnesium Level 1.7 Microbiology 09/03/20 Gram Stain - Final, Resulted 09/03/20 Anaerobic Culture - Preliminary, Resulted No anaerobes isolated 09/03/20 Body Fluid Culture - Preliminary, Resulted Strep anginosus 09/03/20 Fungal Culture 1 - Preliminary, Resulted 09/01/20 Urine Culture - Final, Complete NO GROWTH 09/01/20 MRSA Screen - Final, Complete MRSA not isolated 08/31/20 Blood Culture - Preliminary, Resulted No growth Assessment/Plan Assessment/Plan Assessment/Plan S/P pigtail drain placement to R chest Right lower lobe pneumonia Right chest parapneumonic effusion versus empyema small to moderate Anemia- Hgb 10.9 today PAF Morbid obesity Severe sepsis-Resolved Shortness of breath CAD Diabetes mellitus insulin dependent Dementia Patient had drain placed to R lung -, purulent output in collection bag irrigate pigtail per protocol Continue antibiotics Continue current medical management. Diabetic diet as tolerated, follow recommendations from speech therapy Hgb 10.9 today, up from 10.4 yesterday, continue to monitor Encourage Cough and deep breath. IS q 1hr WA. Pleural fluid + for strep anginosus Consider possible vats if patient respiratory status declines DEEDEE CHILDS DO 09/06/20 0932: Subjective Subjective/Events-last exam Patient breathing easier toady. Drain slightly purulent drainage. Less o2 requirement. Culture strep and fungal pending. Objective Exam General Appearance: No Apparent Distress, Chronically ill, Obese HEENT: PERRL/EOMI, Normal ENT Inspection Neck: Normal Inspection, Non Tender Respiratory: Chest Non Tender, No Accessory Muscle Use, No Respiratory Distress, Crackles, Decreased Breath Sounds (Breath sounds Right chest decreased.) Cardiovascular: Regular Rate, Rhythm, No JVD Gastrointestinal: normal bowel sounds, non tender, soft Extremity: Normal Capillary Refill, Normal Inspection, Non Tender Neurologic/Psychiatric: Alert, Oriented x3 Skin: Normal Color, Warm/Dry Lymphatic: No Adenopathy Assessment/Plan Assessment/Plan Assessment/Plan S/P pigtail drain placement to R chest Right lower lobe pneumonia Right chest parapneumonic effusion versus empyema small to moderate Anemia- Hgb 10.9 today PAF Morbid obesity Severe sepsis-Resolved Shortness of breath CAD Diabetes mellitus insulin dependent Dementia Patient had drain placed to R lung 3-16, purulent output in collection bag outpu t trending down. irrigate pigtail per protocol Continue antibiotics Continue current medical management. Diabetic diet as tolerated, follow recommendations from speech therapy Hgb 10.9 today, up from 10.4 yesterday, continue to monitor Encourage Cough and deep breath. IS q 1hr WA. Pleural fluid + for strep anginosus Consider repeat ct chest if clinically not improving, may need possible vats. Supervisory-Addendum Brief Verification & Attestation Participated in pt care: history, MDM, physical Personally performed: exam, history, MDM, supervision of care Care discussed with: Medical Student Procedures: n/a Results interpretation: Verified all documentation Verification and Attestation of Medical Student E/M Service A medical student performed and documented this service in my presence. I reviewed and verified all information documented by the medical student and made modifications to such information, when appropriate. I personally performed the physical exam and medical decision making. Deedee Childs, Sep 06, 2020,09:32 ALAN YIP MED STUDENT Sep 06, 2020 07:16 DEEDEE CHILDS DO Sep 06, 2020 09:32
--- NOTE | 2020-09-06 07:39 | Diagnostic Imaging Report ---
INDICATION: Respiratory distress. Comparison made with prior examination 09/05/2020. FINDINGS: There is cardiomegaly. There is some venous congestion. There are bibasilar infiltrates right greater than left. There is a drainage catheter in the right lung base. There is no pneumothorax. Mediastinum is unremarkable. IMPRESSION: Bibasilar infiltrates right greater than left. Cardiomegaly and some central pulmonary venous congestion. Dictated by: Dictated on workstation # [id number]
[2020-09-06] MEDS: ASPIRIN E.C. 81 MG (ECOTRIN) TAB PO SCH (08:24)
[2020-09-06] MEDS: APIXABAN 5 MG (ELIQUIS) TABLET PO SCH ×2 (08:24→21:27)
[2020-09-06] MEDS: GABAPENTIN 300 MG (NEURONTIN) CAP PO SCH ×2 (08:24→21:27)
[2020-09-06] MEDS: FINASTERIDE (PROSCAR) 5 MG TAB PO SCH (08:24)
[2020-09-06] MEDS: amLODIPine 10 MG (NORVASC) TAB PO SCH (08:24)
[2020-09-06] MEDS: ENALAPRIL 10 MG (VASOTEC) TAB PO SCH ×2 (08:24→21:29)
[2020-09-06] MEDS: NOREPINEPHRINE 8 MG/250 ML 250 ML IV SCH (08:51)
[2020-09-06] MEDS ORDERED: ALTEPLASE INCATH SCH ×4 (09:00)
[2020-09-06] MEDS ORDERED: DORNASE ALFA INCATH SCH ×4 (09:00)
[2020-09-06] MEDS ORDERED: [UNRECOGNIZED DRUG - OTHER] INCATH SCH ×4 (09:00)
--- NOTE | 2020-09-06 13:27 | Progress Note ---
Subjective Subjective/Events-last exam Patient states that he is feeling much better. Tolerating PO diet. Denies any shortness of breath or chest pain. Review of Systems Pulmonary: Dyspnea, Cough Cardiovascular: No: Chest Pain, Palpitations Gastrointestinal: No: Nausea, Vomiting, Abdominal Pain Neurological: Weakness, Incoordination Objective Exam Last Set of Vital Signs Vital Signs Date Time Temp Pulse Resp B/P (MAP) Pulse Ox O2 Delivery O2 Flow Rate FiO2 09/06/20 12:31 94 High Flow N/C 5.00 09/06/20 12:00 41 152/70 (97) 09/06/20 03:45 37.0 09/05/20 18:00 18 09/05/20 16:22 50 Capillary Refill : Less Than 3 Seconds I&O Intake and Output 09/06/20 00:00 Intake Total 3930 ml Output Total 4715 ml Balance -785 ml Intake Oral 2420 ml IV Total 1510 ml Output Urine Total 4590 ml Drainage Total 125 ml General: Alert, Cooperative, No Acute Distress Lungs: Clear to Auscultation, Normal Air Movement Heart: Regular Rate, No Murmurs Abdomen: Normal Bowel Sounds, Soft, No Tenderness, No Masses Extremities: Other (1+ pitting edema bilaterally) Neuro: Normal Speech, Cranial Nerves 3-12 NL Psych/Mental Status: Mental Status NL, Mood NL Results/Procedures Lab Laboratory Tests 09/05/20 16:41: Glucometer 151H 09/05/20 20:34: Glucometer 197H 09/06/20 03:20: White Blood Count 6.4, Red Blood Count 3.96L, Hemoglobin 10.9L, Hematocrit 36L, Mean Corpuscular Volume 90, Mean Corpuscular Hemoglobin 28, Mean Corpuscular Hemoglobin Concent 31L, Red Cell Distribution Width 14.5, Platelet Count 432H, Mean Platelet Volume 9.3, Immature Granulocyte % (Auto) 3, Neutrophils (%) (Auto) 67, Lymphocytes (%) (Auto) 12, Monocytes (%) (Auto) 13H, Eosinophils (%) (Auto) 4, Basophils (%) (Auto) 1, Neutrophils # (Auto) 4.3, Lymphocytes # (Auto) 0.8L, Monocytes # (Auto) 0.9, Eosinophils # (Auto) 0.3, Basophils # (Auto) 0.1, Immature Granulocyte # (Auto) 0.2H, Sodium Level 137, Potassium Level 3.8, Chloride Level 101, Carbon Dioxide Level 22, Anion Gap 14, Blood Urea Nitrogen 5L, Creatinine 0.55L, Estimat Glomerular Filtration Rate > 60, BUN/Creatinine Ratio 9, Glucose Level 132H, Calcium Level 8.7, Phosphorus Level 2.4, Magnesium Level 1.7 09/06/20 10:54: Glucometer 167H Microbiology 09/03/20 Gram Stain - Final, Resulted 09/03/20 Anaerobic Culture - Preliminary, Resulted No anaerobes isolated 09/03/20 Body Fluid Culture - Preliminary, Resulted Strep anginosus 09/03/20 Fungal Culture 1 - Preliminary, Resulted 09/01/20 Urine Culture - Final, Complete NO GROWTH 09/01/20 MRSA Screen - Final, Complete MRSA not isolated 08/31/20 Blood Culture - Final, Complete No growth Assessment/Plan Assessment/Plan (1) Empyema Status: Acute Assessment & Plan: 09/05: Currently with drain in place, spoke with E[facility] and Dr Childs and we are going to try TPA to break up the loculations, will discuss with family if VATS procedure is something they would like to pursue if this does not help 09/06: Drain in place and actively draining, CXR stable (2) Acute respiratory failure with hypoxia Status: Acute Assessment & Plan: 09/02: Bipap was titrated to NC, doing well, MAT protocol 09/03: Patient on Vapotherm after procedure, will wean as tolerated 09/04: Continues on Vapotherm, will wean as tolerated, IS, deep breathing 09/05: Improving, now on HFNC (3) Right lower lobe pneumonia Status: Acute Assessment & Plan: 09/02: Azithromycin/Zosyn/Vanc D3 09/03: D4 of antibiotics 09/04: D5 antibiotics, culture pending 09/06: D6 antibiotics Qualifiers: Qualified Codes: J18.9 - Pneumonia, unspecified organism (4) Septic shock Status: Resolved Assessment & Plan: 09/02: HDS, continue broad spectrum antibiotics, blood cultures pending 09/03: NGTD, IR today for drainage of loculated fluid in lung 09/04: HDS, drain in right lung with purulent fluid (5) CAD (coronary artery disease) Status: Chronic Assessment & Plan: 09/02: Cardiology consulted, appreciate recommendations, Echo with normal EF Qualifiers: Qualified Codes: I25.10 - Atherosclerotic heart disease of [place] coronary artery without angina pectoris (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 Assessment & Plan: 09/02: A1c pending, continue home insulin with SSI 09/04: A1c 7.0, Accuchecks/SSI (7) Urinary incontinence Status: Chronic Assessment & Plan: 09/02: Currently has hassan Qualifiers: Qualified Codes: N39.46 - Mixed incontinence (8) Hypertension Status: Chronic Assessment & Plan: 09/02: Meds being held 2/2 shock, will add back as needed Qualifiers: Qualified Codes: I10 - Essential (primary) hypertension (9) Dementia Status: Chronic Assessment & Plan: - Seems to be at baseline at this time Qualifiers: Qualified Codes: F03.90 - Unspecified dementia without behavioral disturbance (10) Dysphagia Status: Acute Assessment & Plan: 09/04: Swallow eval completed today, recommendation of mechanical soft diet Qualifiers: Qualified Codes: R13.10 - Dysphagia, unspecified (11) Debility Status: Chronic Assessment & Plan: - Baseline is wheel chair bound and assist x 1 to get to wheelchair (12) DVT prophylaxis Status: Acute Assessment & Plan: - ROMMEL Boyd MD Sep 06, 2020 13:27
--- NOTE | 2020-09-06 15:31 | Progress Note - Cardiology ---
Cardiology SOAP Progress Note Subjective: Gen malaise and weakness Shortness of breath as before No cp or palp or syncope No n/v/d Objective: I&O/Vital Signs 09/06/20 09/06/20 09/06/20 09/06/20 03:45 03:45 04:00 05:00 Temp 37.0 Pulse 61 61 B/P (MAP) 124/53 (76) 140/66 (90) Pulse Ox 93 95 96 O2 Delivery High Flow N/C High Flow N/C High Flow N/C High Flow N/C O2 Flow Rate 5.00 5.00 5.00 5.00 09/06/20 09/06/20 09/06/20 09/06/20 06:00 06:26 07:00 07:00 Pulse 62 76 78 B/P (MAP) 140/66 (90) 136/61 (86) Pulse Ox 94 95 93 O2 Delivery High Flow N/C High Flow N/C High Flow N/C O2 Flow Rate 5.00 5.00 5.00 09/06/20 09/06/20 09/06/20 09/06/20 08:00 08:52 09:00 10:00 Pulse 58 82 74 B/P (MAP) 141/71 (94) 143/72 (95) Pulse Ox 97 94 97 94 O2 Delivery High Flow N/C High Flow N/C High Flow N/C High Flow N/C O2 Flow Rate 5.00 5.00 5.00 5.00 09/06/20 09/06/20 09/06/20 09/06/20 10:02 11:00 12:00 12:31 Pulse 74 41 B/P (MAP) 144/68 (93) 152/70 (97) Pulse Ox 93 94 95 94 O2 Delivery High Flow N/C High Flow N/C High Flow N/C High Flow N/C O2 Flow Rate 5.00 5.00 5.00 5.00 09/06/20 15:04 Pulse Ox 96 O2 Delivery High Flow N/C O2 Flow Rate 6.00 09/06/20 00:00 Intake Total 1720 ml Output Total 2985 ml Balance -1265 ml Weight (Pounds): 324 Weight (Ounces): 3.0 Weight (Calculated Kilograms): 147.196993 Constitutional: other (mildly confused in his repsonses) Respiratory: No accessory muscle use; other (fair to good, bilateral air entry) Cardiovascular: regular rate-rhythm, S1 and S2, systolic murmur (soft DILLON at card base) Gastrointestional: No tender; soft; No guarding, No rebound; audible bowel sounds Extremities: other (mild, bilat leg edema); No clubbing, No cyanosis Neurologic/Psychiatric: other (moves all limbs equally) Skin: normal color, warm/dry; No cool, No rash on exposed areas, No ulcerations on exposed areas Results/Procedures: Labs Laboratory Tests 09/05/20 16:41: Glucometer 151H 09/05/20 20:34: Glucometer 197H 09/06/20 03:20: White Blood Count 6.4, Red Blood Count 3.96L, Hemoglobin 10.9L, Hematocrit 36L, Mean Corpuscular Volume 90, Mean Corpuscular Hemoglobin 28, Mean Corpuscular H emoglobin Concent 31L, Red Cell Distribution Width 14.5, Platelet Count 432H, Mean Platelet Volume 9.3, Immature Granulocyte % (Auto) 3, Neutrophils (%) (Auto) 67, Lymphocytes (%) (Auto) 12, Monocytes (%) (Auto) 13H, Eosinophils (%) (Auto) 4, Basophils (%) (Auto) 1, Neutrophils # (Auto) 4.3, Lymphocytes # (Auto) 0.8L, Monocytes # (Auto) 0.9, Eosinophils # (Auto) 0.3, Basophils # (Auto) 0.1, Immature Granulocyte # (Auto) 0.2H, Sodium Level 137, Potassium Level 3.8, Chloride Level 101, Carbon Dioxide Level 22, Anion Gap 14, Blood Urea Nitrogen 5L, Creatinine 0.55L, Estimat Glomerular Filtration Rate > 60, BUN/Creatinine Ratio 9, Glucose Level 132H, Calcium Level 8.7, Phosphorus Level 2.4, Magnesium Level 1.7 09/06/20 10:54: Glucometer 167H Microbiology 09/03/20 Gram Stain - Final, Resulted 09/03/20 Anaerobic Culture - Preliminary, Resulted No anaerobes isolated 09/03/20 Body Fluid Culture - Preliminary, Resulted Strep anginosus 09/03/20 Fungal Culture 1 - Preliminary, Resulted 09/01/20 Urine Culture - Final, Complete NO GROWTH 09/01/20 MRSA Screen - Final, Complete MRSA not isolated 08/31/20 Blood Culture - Final, Complete No growth Laboratory Tests 09/05/20 04:37 09/06/20 03:20 A/P: Assessment: Sinus node dysfunction - 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 (no symptoms) Echo 09-02-20: LVEF 60-65%, PASP 40-45 mmHg Right lower lobe pneumonia and sepsis, improved, managed by primary care team Right-sided pleural effusion, questionable empyema, managed by primary care team Coronary artery disease, history of cardiac catheterization in 2012, nonobstructive coronary artery disease, no chest pain was reported at this time Diabetes mellitus, followed and managed by primary care physician Hypertension History of pannus cellulitis and left leg ulcer with cellulitis, currently stable Plan: * Continue current cardiac regimen * Monitor labs * Monitor cardiac rhythm BELL TODD MD [facility] Sep 06, 2020 15:31
[2020-09-06] MEDS: TAMSULOSIN 0.4 MG (FLOMAX) CAP PO SCH (17:42)
[2020-09-06 20:03] VITALS: BP_SYST 151; BP_SYST 166; BP_DIAS 77; BP_DIAS 79
[2020-09-06] MEDS ORDERED: WATER (STERILE) FOR INJECTION 20 ML ONE (21:13)
[2020-09-06] MEDS ORDERED: cefTRIAXone 2 GM/20 ML for IV (ROCEPHIN) ONE (21:13)
[2020-09-06] MEDS: cefTRIAXone 2,000 MG/SWFI 20 ML IV PUSH IV SCH ×2 (21:28)
[2020-09-07] VITALS (7 sets, daily range): BP systolic 137–163; BP diastolic 70–78
[2020-09-07] MEDS: RT-ALBUTEROL INHALER HFA (VENTOLIN HFA) 18 GM IH SCH ×5 (01:49→18:14)
[2020-09-07] MEDS: inSUlin ASPART (NovoLOG) 1 UNIT/0.01 ML (CHARGE PER UNIT) SC SCH ×4 (05:43→21:38)
[2020-09-07 05:48] LABS: BASOPHILS # (AUTO) 0.1 10^3/uL (0.0-0.1); BASOPHILS % (AUTO) 1 % (0-10); EOSINOPHILS # (AUTO) 0.3 10^3/uL (0.0-0.3); EOSINOPHILS % (AUTO) 5 % (0-10); HEMATOCRIT 37 % (40-54); HEMOGLOBIN 11.2 g/dL (13.3-17.7); LYMPHOCYTES # (AUTO) 0.6 10^3/uL (1.0-4.0); LYMPHOCYTES % (AUTO) 9 % (12-44); MEAN CORPUSCULAR HEMOGLOBIN 28 pg (25-34); MEAN CORPUSCULAR HGB CONC 31 g/dL (32-36); MEAN CORPUSCULAR VOLUME 90 fL (80-99); MEAN PLATELET VOLUME 9.5 fL (9.0-12.2); MONOCYTES # (AUTO) 0.8 10^3/uL (0.0-1.0); MONOCYTES % (AUTO) 13 % (0-12); NEUTROPHILS # (AUTO) 4.5 10^3/uL (1.8-7.8); NEUTROPHILS % (AUTO) 69 % (42-75); PLATELET COUNT 439 10^3/uL (130-400); WHITE BLOOD COUNT 6.6 10^3/uL (4.3-11.0)
[2020-09-07 05:57] LABS: CHLORIDE 102 MMOL/L (98-107); POTASSIUM 3.9 MMOL/L (3.6-5.0); SODIUM 141 MMOL/L (135-145)
[2020-09-07] MEDS: KCL 20 MEQ TAB (K-DUR) PO SCH (05:58)
[2020-09-07 05:59] LABS: GLUCOSE 180 MG/DL (70-105)
[2020-09-07 06:01] LABS: CARBON DIOXIDE 23 MMOL/L (21-32)
[2020-09-07 06:03] LABS: CREATININE SERUM 0.48 MG/DL (0.60-1.30); GFR ESTIMATED > 60; PHOSPHORUS 2.5 MG/DL (2.3-4.7)
[2020-09-07 06:04] LABS: BUN/CREATININE RATIO 13
--- NOTE | 2020-09-07 07:38 | Diagnostic Imaging Report ---
EXAMINATION: Chest 1 view HISTORY: Respiratory distress. COMPARISON: 09/06/2020. FINDINGS: Stable pigtail catheter chest tube in the right lung base. There are unchanged coarse opacities in the mid and lower right lung with patchy opacities persistent in the left lung base. Stable prominent cardiac silhouette. No large pleural effusion or pneumothorax. IMPRESSION: 1. Stable bibasilar opacities which may represent infection or edema. 2. Stable configuration of the pigtail catheter chest tube in the right lung base. No large pleural effusion or pneumothorax. 3. Stable cardiomegaly. Dictated by: Dictated on workstation # [id number]
[2020-09-07] MEDS: APIXABAN 5 MG (ELIQUIS) TABLET PO SCH ×2 (08:59→20:38)
[2020-09-07] MEDS: ENALAPRIL 10 MG (VASOTEC) TAB PO SCH ×2 (08:59→20:38)
[2020-09-07] MEDS: GABAPENTIN 300 MG (NEURONTIN) CAP PO SCH ×2 (08:59→20:38)
[2020-09-07] MEDS: amLODIPine 10 MG (NORVASC) TAB PO SCH (08:59)
[2020-09-07] MEDS: FINASTERIDE (PROSCAR) 5 MG TAB PO SCH (08:59)
[2020-09-07] MEDS: ASPIRIN E.C. 81 MG (ECOTRIN) TAB PO SCH (08:59)
--- NOTE | 2020-09-07 10:27 | Progress Note ---
Subjective Date Seen by a Provider: Sep 07, 2020 Time Seen by a Provider: 10:00 Subjective/Events-last exam doing ok. no new complaints. no cough/sputum. no fever/chills. minimal pleural cath output. Objective Exam Vital Signs Date Time Temp Pulse Resp B/P (MAP) Pulse Ox O2 Delivery O2 Flow Rate FiO2 09/07/20 08:00 90 High Flow N/C 6.50 09/07/20 07:45 36.3 88 26 144/71 (95) High Flow N/C 4.00 09/07/20 07:06 93 High Flow N/C 4.00 09/07/20 04:00 36.5 83 24 159/76 (103) 92 High Flow N/C 4.00 09/07/20 00:00 36.3 71 24 163/77 (105) 94 High Flow N/C 4.00 09/06/20 21:37 91 High Flow N/C 4.00 09/06/20 20:03 High Flow N/C 4.00 09/06/20 20:03 36.6 80 22 166/77 (106) 93 High Flow N/C 5.00 09/06/20 18:24 91 High Flow N/C 4.00 09/06/20 16:00 36.3 71 18 146/63 (90) 92 Nasal Cannula 2.00 09/06/20 15:04 96 High Flow N/C 6.00 09/06/20 12:31 94 High Flow N/C 5.00 09/06/20 12:00 41 152/70 (97) 95 High Flow N/C 5.00 09/06/20 11:00 74 144/68 (93) 94 High Flow N/C 5.00 I & O 09/07/20 07:00 Intake Total 1920 ml Output Total 5950 ml Balance -4030 ml Capillary Refill : Less Than 3 Seconds General Appearance: No Apparent Distress HEENT: PERRL/EOMI Neck: Full Range of Motion Respiratory: Decreased Breath Sounds, Rhonci Cardiovascular: Regular Rate, Rhythm Gastrointestinal: normal bowel sounds, non tender, soft Extremity: Normal Capillary Refill Neurologic/Psychiatric: Alert Skin: Normal Color Lymphatic: No Adenopathy Results Lab Laboratory Tests 09/06/20 10:54: Glucometer 167H 09/06/20 16:14: Glucometer 206H 09/06/20 21:08: Glucometer 176H 09/07/20 05:31: White Blood Count 6.6, Red Blood Count 4.07L, Hemoglobin 11.2L, Hematocrit 37L, Mean Corpuscular Volume 90, Mean Corpuscular Hemoglobin 28, Mean Corpuscular Hemoglobin Concent 31L, Red Cell Distribution Width 14.6H, Platelet Count 439H, Mean Platelet Volume 9.5, Immature Granulocyte % (Auto) 4, Neutrophils (%) (Auto) 69, Lymphocytes (%) (Auto) 9L, Monocytes (%) (Auto) 13H, Eosinophils (%) (Auto) 5, Basophils (%) (Auto) 1, Neutrophils # (Auto) 4.5, Lymphocytes # (Auto) 0.6L, Monocytes # (Auto) 0.8, Eosinophils # (Auto) 0.3, Basophils # (Auto) 0.1, Immature Granulocyte # (Auto) 0.2H, Sodium Level 141, Potassium Level 3.9, Chloride Level 102, Carbon Dioxide Level 23, Anion Gap 16H, Blood Urea Nitrogen 6L, Creatinine 0.48L, Estimat Glomerular Filtration Rate > 60, BUN/Creatinine Ratio 13, Glucose Level 180H, Calcium Level 9.0, Phosphorus Level 2.5, Magnesium Level 2.0 09/07/20 05:36: Glucometer 180H Microbiology 09/03/20 Gram Stain - Final, Resulted 09/03/20 Anaerobic Culture - Preliminary, Resulted No anaerobes isolated 09/03/20 Body Fluid Culture - Preliminary, Resulted Strep anginosus 09/03/20 Fungal Culture 1 - Preliminary, Resulted 09/01/20 Urine Culture - Final, Complete NO GROWTH 09/01/20 MRSA Screen - Final, Complete MRSA not isolated 08/31/20 Blood Culture - Final, Complete No growth Assessment/Plan Assessment/Plan Assess & Plan/Chief Complaint right pneumonia and empyema s/p pleural cath placement. cont current managment and abx. will follow serial CXR. DEMETRA HICKMAN MD Sep 07, 2020 10:27
[2020-09-07] MEDS: LACTATED RINGERS 1,000 ML IV SCH (11:35)
--- NOTE | 2020-09-07 12:21 | Progress Note - Hospitalist ---
Subjective HPI/CC On Admission Date Seen by Provider: Sep 07, 2020 Time Seen by Provider: 10:00 CC: Septic shock HPI: This is a very debilitated group home patient of [facility] who presented to the ER with acute illness. Dyspnea was reported at the NH and fever of 101.6 and negative COVID swab Wednesday was negative. Patient was dx with PNA and dx with septic shock. Patient is currently sleeping but very chronically ill and andrade and ashen. Patient is a DNR. Dr Childs consulted for right sided effusion vs. empyema. Subjective/Events-last exam Patient was upset about being woken up for breathing treatments. He denies shortness of breath. Nursing staff report he still having a significant amount of purulent drainage out of his right sided chest tube. He denies night sweats chills or fever. He is upset about his dysphagia diet states he does not have any difficulty swallowing and nursing staff report he has had no difficulty with thin liquids swallowing his pills or eating a soft diet. He denies choking with decreasing cough still productive. No hemoptysis reported. Objective Exam Vital Signs Vital Signs Date Time Temp Pulse Resp B/P (MAP) Pulse Ox O2 Delivery O2 Flow Rate FiO2 09/07/20 11:35 36.6 86 30 160/70 (100) 92 High Flow N/C 5.00 09/05/20 16:22 50 Capillary Refill : Less Than 3 Seconds General Appearance: No Apparent Distress, Obese Respiratory: No Accessory Muscle Use, No Respiratory Distress, Other (Chest clear anteriorly diminished breath sounds bilaterally worse on the right with a few coarse rhonchi on the right no wheezing noted) Cardiovascular: Regular Rate, Rhythm, No JVD, No Murmur Results/Procedures Lab Laboratory Tests 09/07/20 05:31 Patient resulted labs reviewed. Assessment/Plan Assessment and Plan Assess & Plan/Chief Complaint (1) Empyema Status: Acute Assessment & Plan: 09/05: Currently with drain in place, spoke with MILO and Dr Childs and we are going to try TPA to break up the loculations, will discuss with family if VATS procedure is something they would like to pursue if this does not help 09/06: Drain in place and actively draining, CXR stable 09/07: Overall condition appears to be slowly improving as patient is growing a Streptococcus species we will not broaden antibiotic spectrum continuing Rocephin as this was a pleural culture and the patient also had a 1+ blood culture. Discussed this case with Dr. HICKMAN who does not believe he is a candidate considering his poor performance status for VATS procedure or any form of decortication continue chest tube drainage for now pull tube when drainage is minimal. No worsening of chest x-ray with clinical improvement.Discussed with nurse watching him eat a solid meal if he has no difficulty with this will change to a 1600-calorie ADA diet. Will decrease breathing treatments to 4 times daily every 4 as needed. (2) Acute respiratory failure with hypoxia Status: Acute Assessment & Plan: 09/02: Bipap was titrated to NC, doing well, MAT protocol 09/03: Patient on Vapotherm after procedure, will wean as tolerated 09/04: Continues on Vapotherm, will wean as tolerated, IS, deep breathing 09/05: Improving, now on HFNC (3) Right lower lobe pneumonia Status: Acute Assessment & Plan: 09/02: Azithromycin/Zosyn/Vanc D3 09/03: D4 of antibiotics 09/04: D5 antibiotics, culture pending 09/06: D6 antibiotics Qualifiers: Qualified Codes: J18.9 - Pneumonia, unspecified organism (4) Septic shock Status: Resolved Assessment & Plan: 09/02: HDS, continue broad spectrum antibiotics, blood cultures pending 09/03: NGTD, IR today for drainage of loculated fluid in lung 09/04: HDS, drain in right lung with purulent fluid (5) CAD (coronary artery disease) Status: Chronic Assessment & Plan: 09/02: Cardiology consulted, appreciate recommendations, Echo with normal EF Qualifiers: Qualified Codes: I25.10 - Atherosclerotic heart disease of [place] coronary artery without angina pectoris (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 Assessment & Plan: 09/02: A1c pending, continue home insulin with SSI 09/04: A1c 7.0, Accuchecks/SSI (7) Urinary incontinence Status: Chronic Assessment & Plan: 09/02: Currently has hassan Qualifiers: Qualified Codes: N39.46 - Mixed incontinence (8) Hypertension Status: Chronic Assessment & Plan: 09/02: Meds being held 2/2 shock, will add back as needed Qualifiers: Qualified Codes: I10 - Essential (primary) hypertension (9) Dementia Status: Chronic Assessment & Plan: - Seems to be at baseline at this time Qualifiers: Qualified Codes: F03.90 - Unspecified dementia without behavioral di sturbance (10) Dysphagia Status: Acute Assessment & Plan: 09/04: Swallow eval completed today, recommendation of mechanical soft diet Qualifiers: Qualified Codes: R13.10 - Dysphagia, unspecified (11) Debility Status: Chronic Assessment & Plan: - Baseline is wheel chair bound and assist x 1 to get to wheelchair (12) DVT prophylaxis Status: Acute Assessment & Plan: - CHRISTOPHER Singleton MD Sep 07, 2020 12:21
--- NOTE | 2020-09-07 14:44 | Progress Note - Cardiology ---
Cardiology SOAP Progress Note Subjective: No cp or palp or syncope Shortness of breath with activity Some gen malaise and weakness No n/v/d Objective: I&O/Vital Signs 09/07/20 09/07/20 09/07/20 09/07/20 04:00 07:06 07:45 08:00 Temp 36.5 36.3 Pulse 83 88 Resp 24 26 B/P (MAP) 159/76 (103) 144/71 (95) Pulse Ox 92 93 90 O2 Delivery High Flow N/C High Flow N/C High Flow N/C High Flow N/C O2 Flow Rate 4.00 4.00 4.00 6.50 09/07/20 09/07/20 10:52 11:35 Temp 36.6 Pulse 86 Resp 30 B/P (MAP) 160/70 (100) Pulse Ox 93 92 O2 Delivery Nasal Cannula High Flow N/C O2 Flow Rate 6.00 5.00 09/07/20 00:00 Intake Total 1320 ml Output Total 3110 ml Balance -1790 ml Weight (Pounds): 324 Weight (Ounces): 3.0 Weight (Calculated Kilograms): 147.692113 Constitutional: other (mildly confused in his repsonses) Respiratory: No accessory muscle use; other (fair to good, bilateral air entry) Cardiovascular: regular rate-rhythm, S1 and S2, systolic murmur (soft DILLON at card base) Gastrointestional: No tender; soft; No guarding, No rebound; audible bowel sounds Extremities: other (mild, bilat leg edema); No clubbing, No cyanosis Neurologic/Psychiatric: other (moves all limbs equally) Skin: normal color, warm/dry; No cool, No rash on exposed areas, No ulcerations on exposed areas Results/Procedures: Labs Laboratory Tests 09/06/20 16:14: Glucometer 206H 09/06/20 21:08: Glucometer 176H 09/07/20 05:31: White Blood Count 6.6, Red Blood Count 4.07L, Hemoglobin 11.2L, Hematocrit 37L, Mean Corpuscular Volume 90, Mean Corpuscular Hemoglobin 28, Mean Corpuscular Hemoglobin Concent 31L, Red Cell Distribution Width 14.6H, Platelet Count 439H, Mean Platelet Volume 9.5, Immature Granulocyte % (Auto) 4, Neutrophils (%) (Auto) 69, Lymphocytes (%) (Auto) 9L, Monocytes (%) (Auto) 13H, Eosinophils (%) (Auto) 5, Basophils (%) (Auto) 1, Neutrophils # (Auto) 4.5, Lymphocytes # (Auto) 0.6L, Monocytes # (Auto) 0.8, Eosinophils # (Auto) 0.3, Basophils # (Auto) 0.1, Immature Granulocyte # (Auto) 0.2H, Sodium Level 141, Potassium Level 3.9, Chloride Level 102, Carbon Dioxide Level 23, Anion Gap 16H, Blood Urea Nitrogen 6L, Creatinine 0.48L, Estimat Glomerular Filtration Rate > 60, BUN/Creatinine Ratio 13, Glucose Level 180H, Calcium Level 9.0, Phosphorus Level 2.5, Magnesium Level 2.0 09/07/20 05:36: Glucometer 180H 09/07/20 11:40: Glucometer 232H Microbiology 09/03/20 Gram Stain - Final, Resulted 09/03/20 Anaerobic Culture - Preliminary, Resulted No anaerobes isolated 09/03/20 Body Fluid Culture - Preliminary, Resulted Strep anginosus Granulicatella adiacens 09/03/20 Fungal Culture 1 - Preliminary, Resulted 09/01/20 Urine Culture - Final, Complete NO GROWTH 09/01/20 MRSA Screen - Final, Complete MRSA not isolated 08/31/20 Blood Culture - Final, Complete No growth Laboratory Tests 09/06/20 03:20 09/07/20 05:31 A/P: Assessment: Sinus node dysfunction - 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 (no symptoms) Echo 09-02-20: LVEF 60-65%, PASP 40-45 mmHg Right lower lobe pneumonia and sepsis, improved, managed by primary care team Right-sided pleural effusion, questionable empyema, managed by primary care team Coronary artery disease, history of cardiac catheterization in 2012, nonobstructive coronary artery disease, no chest pain was reported at this time Diabetes mellitus, followed and managed by primary care physician Hypertension History of pannus cellulitis and left leg ulcer with cellulitis, currently stable Plan: * Monitor labs * Continue regimen BELL TODD MD [facility] Sep 07, 2020 14:44
[2020-09-07] MEDS: TAMSULOSIN 0.4 MG (FLOMAX) CAP PO SCH (16:27)
[2020-09-07] MEDS ORDERED: WATER (STERILE) FOR INJECTION 20 ML ONE (20:18)
[2020-09-07] MEDS ORDERED: cefTRIAXone 2 GM/20 ML for IV (ROCEPHIN) ONE (20:18)
[2020-09-07] MEDS: cefTRIAXone 2,000 MG/SWFI 20 ML IV PUSH IV SCH ×2 (20:38)
[2020-09-08 04:00] VITALS: BP 142/75
[2020-09-08] MEDS: inSUlin ASPART (NovoLOG) 1 UNIT/0.01 ML (CHARGE PER UNIT) SC SCH ×4 (05:59→20:05)
[2020-09-08] MEDS: RT-ALBUTEROL INHALER HFA (VENTOLIN HFA) 18 GM IH SCH ×4 (07:41→19:00)
[2020-09-08 07:42] LABS: BASOPHILS # (AUTO) 0.1 10^3/uL (0.0-0.1); BASOPHILS % (AUTO) 1 % (0-10); EOSINOPHILS # (AUTO) 0.3 10^3/uL (0.0-0.3); EOSINOPHILS % (AUTO) 5 % (0-10); HEMATOCRIT 38 % (40-54); HEMOGLOBIN 11.9 g/dL (13.3-17.7); LYMPHOCYTES # (AUTO) 0.7 10^3/uL (1.0-4.0); LYMPHOCYTES % (AUTO) 11 % (12-44); MEAN CORPUSCULAR HEMOGLOBIN 28 pg (25-34); MEAN CORPUSCULAR HGB CONC 31 g/dL (32-36); MEAN CORPUSCULAR VOLUME 90 fL (80-99); MEAN PLATELET VOLUME 9.4 fL (9.0-12.2); MONOCYTES # (AUTO) 0.8 10^3/uL (0.0-1.0); MONOCYTES % (AUTO) 13 % (0-12); NEUTROPHILS # (AUTO) 3.9 10^3/uL (1.8-7.8); NEUTROPHILS % (AUTO) 65 % (42-75); PLATELET COUNT 455 10^3/uL (130-400)
[2020-09-08 07:53] LABS: BUN/CREATININE RATIO 13; CALCIUM 8.9 MG/DL (8.5-10.1); CARBON DIOXIDE 26 MMOL/L (21-32); CHLORIDE 99 MMOL/L (98-107); CREATININE SERUM 0.53 MG/DL (0.60-1.30); GFR ESTIMATED > 60; GLUCOSE 190 MG/DL (70-105); MAGNESIUM 1.8 MG/DL (1.6-2.4); PHOSPHORUS 2.3 MG/DL (2.3-4.7); POTASSIUM 4.4 MMOL/L (3.6-5.0); SODIUM 139 MMOL/L (135-145)
[2020-09-08] MEDS: amLODIPine 10 MG (NORVASC) TAB PO SCH (08:09)
[2020-09-08] MEDS: GABAPENTIN 300 MG (NEURONTIN) CAP PO SCH ×2 (08:09→20:05)
[2020-09-08] MEDS: APIXABAN 5 MG (ELIQUIS) TABLET PO SCH ×2 (08:09→20:05)
[2020-09-08] MEDS: FINASTERIDE (PROSCAR) 5 MG TAB PO SCH (08:09)
[2020-09-08] MEDS: ASPIRIN E.C. 81 MG (ECOTRIN) TAB PO SCH (08:09)
[2020-09-08] MEDS: ENALAPRIL 10 MG (VASOTEC) TAB PO SCH ×2 (08:09→20:05)
[2020-09-08 08:20] VITALS: BP 131/72
--- NOTE | 2020-09-08 09:10 | Progress Note ---
Subjective Date Seen by a Provider: Sep 08, 2020 Time Seen by a Provider: 09:00 Subjective/Events-last exam doing ok. tolerating diet. chronic non-productive cough. minimal cath drainage overnight. no fever/chills. Objective Exam Vital Signs Date Time Temp Pulse Resp B/P (MAP) Pulse Ox O2 Delivery O2 Flow Rate FiO2 09/08/20 08:20 36.5 72 22 131/72 (91) 95 High Flow N/C 5.00 09/08/20 07:42 93 High Flow N/C 5.00 09/08/20 04:00 35.9 82 20 142/75 (97) 97 High Flow N/C 6.00 09/07/20 23:27 36.7 88 24 139/78 (98) 96 High Flow N/C 6.00 09/07/20 20:40 High Flow N/C 6.00 09/07/20 20:34 36.7 84 24 150/77 (101) 96 High Flow N/C 6.00 09/07/20 18:14 92 Nasal Cannula 5.00 09/07/20 16:14 36.5 86 26 137/76 (96) 96 High Flow N/C 5.00 09/07/20 15:02 92 Nasal Cannula 6.00 09/07/20 11:35 36.6 86 30 160/70 (100) 92 High Flow N/C 5.00 09/07/20 10:52 93 Nasal Cannula 6.00 I & O 09/08/20 07:00 Intake Total 3490 ml Output Total 4205 ml Balance -715 ml Capillary Refill : Less Than 3 Seconds General Appearance: No Apparent Distress HEENT: PERRL/EOMI Neck: Full Range of Motion Respiratory: Decreased Breath Sounds, Rhonci Cardiovascular: Regular Rate, Rhythm Gastrointestinal: normal bowel sounds, non tender, soft Extremity: Normal Capillary Refill Neurologic/Psychiatric: Alert Skin: Normal Color Lymphatic: No Adenopathy Results Lab Laboratory Tests 09/07/20 11:40: Glucometer 232H 09/07/20 16:18: Glucometer 164H 09/07/20 20:36: Glucometer 212H 09/08/20 05:46: Glucometer 177H 09/08/20 07:25: White Blood Count 6.0, Red Blood Count 4.27L, Hemoglobin 11.9L, Hematocrit 38L, Mean Corpuscular Volume 90, Mean Corpuscular Hemoglobin 28, Mean Corpuscular Hemoglobin Concent 31L, Red Cell Distribution Width 14.6H, Platelet Count 455H, Mean Platelet Volume 9.4, Immature Granulocyte % (Auto) 4, Neutrophils (%) (Auto) 65, Lymphocytes (%) (Auto) 11L, Monocytes (%) (Auto) 13H, Eosinophils (%) (Auto) 5, Basophils (%) (Auto) 1, Neutrophils # (Auto) 3.9, Lymphocytes # (Auto) 0.7L, Monocytes # (Auto) 0.8, Eosinophils # (Auto) 0.3, Basophils # (Auto) 0.1, Immature Granulocyte # (Auto) 0.3H, Sodium Level 139, Potassium Level 4.4, Chloride Level 99, Carbon Dioxide Level 26, Anion Gap 14, Blood Urea Nitrogen 7, Creatinine 0.53L, Estimat Glomerular Filtration Rate > 60, BUN/Creatinine Ratio 13, Glucose Level 190H, Calcium Level 8.9, Phosphorus Level 2.3, Magnesium Level 1.8 Microbiology 09/03/20 Gram Stain - Final, Resulted 09/03/20 Anaerobic Culture - Preliminary, Resulted No anaerobes isolated 09/03/20 Body Fluid Culture - Preliminary, Resulted Strep anginosus Granulicatella adiacens 09/03/20 Fungal Culture 1 - Preliminary, Resulted 09/01/20 Urine Culture - Final, Complete NO GROWTH 09/01/20 MRSA Screen - Final, Complete MRSA not isolated 08/31/20 Blood Culture - Final, Complete No growth Assessment/Plan Assessment/Plan Assess & Plan/Chief Complaint right pneumonia and empyema s/p pleural cath placement. cont current managment and abx. will follow serial CXR. cont to monitor cath output. will remove upon transfer to [facility] DEMETRA HICKMAN MD Sep 08, 2020 09:10
[2020-09-08] MEDS: KCL 20 MEQ TAB (K-DUR) PO SCH (09:43)
[2020-09-08 11:15] VITALS: BP 140/67
--- NOTE | 2020-09-08 12:16 | Progress Note - Hospitalist ---
Subjective HPI/CC On Admission Date Seen by Provider: Sep 08, 2020 Time Seen by Provider: 09:30 CC: Septic shock HPI: This is a very debilitated alf patient of [facility] who presented to the ER with acute illness. Dyspnea was reported at the NH and fever of 101.6 and negative COVID swab Wednesday was negative. Patient was dx with PNA and dx with septic shock. Patient is currently sleeping but very chronically ill and andrade and ashen. Patient is a DNR. Dr Childs consulted for right sided effusion vs. empyema. Subjective/Events-last exam Patient denies any significant pain but irritable and inappropriate both verbally and physically with staff. He has had minimal drainage from his chest tube the last 48 hours and his chest tube is been pulled by Dr. HICKMAN without difficulty. Objective Exam Vital Signs Vital Signs Date Time Temp Pulse Resp B/P (MAP) Pulse Ox O2 Delivery O2 Flow Rate FiO2 09/08/20 11:15 36.5 95 22 140/67 (91) 94 High Flow N/C 5.00 09/05/20 16:22 50 Capillary Refill : Less Than 3 Seconds General Appearance: No Apparent Distress, Obese Respiratory: No Accessory Muscle Use, No Respiratory Distress, Other (Chest clear anteriorly diminished breath sounds in both bases but right worse than left essentially absent in right base no wheezes rales or rhonchi noted. ) Cardiovascular: Regular Rate, Rhythm, No Edema, No JVD, No Murmur Results/Procedures Lab Laboratory Tests 09/08/20 07:25 Patient resulted labs reviewed. Assessment/Plan Assessment and Plan Assess & Plan/Chief Complaint (1) Empyema Status: Acute Assessment & Plan: 09/05: Currently with drain in place, spoke with EICU and Dr Childs and we are going to try TPA to break up the loculations, will discuss with family if VATS procedure is something they would like to pursue if this does not help 09/06: Drain in place and actively draining, CXR stable 09/07: Overall condition appears to be slowly improving as patient is growing a Streptococcus species we will not broaden antibiotic spectrum continuing Rocephin as this was a pleural culture and the patient also had a 1+ blood culture. Discussed this case with Dr. HICKMAN who does not believe he is a candidate considering his poor performance status for VATS procedure or any form of decortication continue chest tube drainage for now pull tube when drainage is minimal. No worsening of chest x-ray with clinical improvement.Discussed with nurse watching him eat a solid meal if he has no difficulty with this will change to a 1600-calorie ADA diet. Will decrease breathing treatments to 4 times daily every 4 as needed. 09/08: Chest tube pulled after minimal drainage over the last 48 hours. Continue antibiotics with a.m. discharge likely on another 7 to 10-day course of p.o. antibiotics. (2) Acute respiratory failure with hypoxia Status: Acute Assessment & Plan: 09/02: Bipap was titrated to NC, doing well, MAT protocol 09/03: Patient on Vapotherm after procedure, will wean as tolerated 09/04: Continues on Vapotherm, will wean as tolerated, IS, deep breathing 09/05: Improving, now on HFNC (3) Right lower lobe pneumonia Status: Acute Assessment & Plan: 09/02: Azithromycin/Zosyn/Vanc D3 09/03: D4 of antibiotics 09/04: D5 antibiotics, culture pending 09/06: D6 antibiotics Qualifiers: Qualified Codes: J18.9 - Pneumonia, unspecified organism (4) Septic shock Status: Resolved Assessment & Plan: 09/02: HDS, continue broad spectrum antibiotics, blood cultures pending 09/03: NGTD, IR today for drainage of loculated fluid in lung 09/04: HDS, drain in right lung with purulent fluid (5) CAD (coronary artery disease) Status: Chronic Assessment & Plan: 09/02: Cardiology consulted, appreciate recommendations, Echo with normal EF Qualifiers: Qualified Codes: I25.10 - Atherosclerotic heart disease of [place] coronary artery without angina pectoris (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 Assessment & Plan: 09/02: A1c pending, continue home insulin with SSI 09/04: A1c 7.0, Accuchecks/SSI (7) Urinary incontinence Status: Chronic Assessment & Plan: 09/02: Currently has hassan Qualifiers: Qualified Codes: N39.46 - Mixed incontinence (8) Hypertension Status: Chronic Assessment & Plan: 09/02: Meds being held 2/2 shock, will add back as needed Qualifiers: Qualified Codes: I10 - Essential (primary) hypertension (9) Dementia Status: Chronic Assessment & Plan: - Seems to be at baseline at this time Qualifiers: Qualified Codes: F03.90 - Unspecified dementia without behavioral disturbance (10) Dysphagia Status: Acute Assessment & Plan: 09/04: Swallow eval completed today, recommendation of mechanical soft diet Qualifiers: Qualified Codes: R13.10 - Dysphagia, unspecified (11) Debility Status: Chronic Assessment & Plan: - Baseline is wheel chair bound and assist x 1 to get to wheelchair (12) DVT prophylaxis Status: Acute Assessment & Plan: - CHRISTOPHER Singleton MD Sep 08, 2020 12:16
--- NOTE | 2020-09-08 13:22 | Progress Note - Cardiology ---
Cardiology SOAP Progress Note Subjective: Shortness of breath somewhat better No cp No palp or syncope or swelling No n/v/d Gen malaise present Objective: I&O/Vital Signs 09/08/20 09/08/20 09/08/20 09/08/20 04:00 07:42 08:00 08:20 Temp 35.9 36.5 Pulse 82 72 Resp 20 22 B/P (MAP) 142/75 (97) 131/72 (91) Pulse Ox 97 93 95 O2 Delivery High Flow N/C High Flow N/C High Flow N/C High Flow N/C O2 Flow Rate 6.00 5.00 0.00 5.00 09/08/20 09/08/20 10:36 11:15 Temp 36.5 Pulse 95 Resp 22 B/P (MAP) 140/67 (91) Pulse Ox 93 94 O2 Delivery High Flow N/C High Flow N/C O2 Flow Rate 5.00 5.00 09/08/20 00:00 Intake Total 2370 ml Output Total 2835 ml Balance -465 ml Weight (Pounds): 324 Weight (Ounces): 3.0 Weight (Calculated Kilograms): 147.204903 Constitutional: other (mildly confused in his repsonses) Respiratory: No accessory muscle use; other (fair to good, bilateral air entry) Cardiovascular: regular rate-rhythm, S1 and S2, systolic murmur (soft DILLON at card base) Gastrointestional: No tender; soft; No guarding, No rebound; audible bowel sounds Extremities: other (mild, bilat leg edema); No clubbing, No cyanosis Neurologic/Psychiatric: other (moves all limbs equally) Skin: normal color, warm/dry; No cool, No rash on exposed areas, No ulcerations on exposed areas Results/Procedures: Labs Laboratory Tests 09/07/20 16:18: Glucometer 164H 09/07/20 20:36: Glucometer 212H 09/08/20 05:46: Glucometer 177H 09/08/20 07:25: White Blood Count 6.0, Red Blood Count 4.27L, Hemoglobin 11.9L, Hematocrit 38L, Mean Corpuscular Volume 90, Mean Corpuscular Hemoglobin 28, Mean Corpuscular Hemoglobin Concent 31L, Red Cell Distribution Width 14.6H, Platelet Count 455H, Mean Platelet Volume 9.4, Immature Granulocyte % (Auto) 4, Neutrophils (%) (Auto) 65, Lymphocytes (%) (Auto) 11L, Monocytes (%) (Auto) 13H, Eosinophils (%) (Auto) 5, Basophils (%) (Auto) 1, Neutrophils # (Auto) 3.9, Lymphocytes # (Auto) 0.7L, Monocytes # (Auto) 0.8, Eosinophils # (Auto) 0.3, Basophils # (Auto) 0.1, Immature Granulocyte # (Auto) 0.3H, Sodium Level 139, Potassium Level 4.4, Chloride Level 99, Carbon Dioxide Level 26, Anion Gap 14, Blood Urea Nitrogen 7, Creatinine 0.53L, Estimat Glomerular Filtration Rate > 60, BUN/Creatinine Ratio 13, Glucose Level 190H, Calcium Level 8.9, Phosphorus Level 2.3, Magnesium Level 1.8 09/08/20 11:21: Glucometer 320H Microbiology 09/03/20 Gram Stain - Final, Resulted 09/03/20 Anaerobic Culture - Final, Resulted No anaerobes isolated 09/03/20 Body Fluid Culture - Final, Resulted Strep anginosus Strep anginosus#2 Granulicatella adiacens 09/03/20 Fungal Culture 1 - Preliminary, Resulted 09/01/20 Urine Culture - Final, Complete NO GROWTH 09/01/20 MRSA Screen - Final, Complete MRSA not isolated 08/31/20 Blood Culture - Final, Complete No growth Laboratory Tests 09/07/20 05:31 09/08/20 07:25 A/P: Assessment: Sinus node dysfunction - 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 (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) Echo 09-02-20: LVEF 60-65%, PASP 40-45 mmHg Right lower lobe pneumonia and sepsis, improved, managed by primary care team Right-sided pleural effusion, questionable empyema, managed by primary care team Coronary artery disease, history of cardiac catheterization in 2012, nonobstructive coronary artery disease, no chest pain was reported at this time Diabetes mellitus, followed and managed by primary care physician Hypertension History of pannus cellulitis and left leg ulcer with cellulitis, currently stable Plan: * Monitor labs * Cardiac status appear clinically stable BELL TODD MD [facility] Sep 08, 2020 13:22
[2020-09-08 16:00] VITALS: BP 134/59
[2020-09-08] MEDS: TAMSULOSIN 0.4 MG (FLOMAX) CAP PO SCH (17:53)
[2020-09-08] MEDS ORDERED: WATER (STERILE) FOR INJECTION 20 ML ONE (19:51)
[2020-09-08] MEDS ORDERED: cefTRIAXone 2 GM/20 ML for IV (ROCEPHIN) ONE (19:51)
[2020-09-08 20:00] VITALS: BP 135/68
[2020-09-08] MEDS: cefTRIAXone 2,000 MG/SWFI 20 ML IV PUSH IV SCH ×2 (20:05)
[2020-09-08 23:57] VITALS: BP 143/87
[2020-09-09 04:28] VITALS: BP 128/79
[2020-09-09 06:00] LABS: BASOPHILS % (AUTO) 1 % (0-10); EOSINOPHILS # (AUTO) 0.2 10^3/uL (0.0-0.3); EOSINOPHILS % (AUTO) 4 % (0-10); HEMATOCRIT 39 % (40-54); HEMOGLOBIN 12.4 g/dL (13.3-17.7); LYMPHOCYTES # (AUTO) 0.7 10^3/uL (1.0-4.0); LYMPHOCYTES % (AUTO) 11 % (12-44); MEAN CORPUSCULAR HEMOGLOBIN 28 pg (25-34); MEAN CORPUSCULAR HGB CONC 32 g/dL (32-36); MEAN CORPUSCULAR VOLUME 87 fL (80-99); MEAN PLATELET VOLUME 9.9 fL (9.0-12.2); MONOCYTES # (AUTO) 0.9 10^3/uL (0.0-1.0); MONOCYTES % (AUTO) 15 % (0-12); NEUTROPHILS # (AUTO) 4.1 10^3/uL (1.8-7.8); NEUTROPHILS % (AUTO) 67 % (42-75); PLATELET COUNT 379 10^3/uL (130-400); WHITE BLOOD COUNT 6.2 10^3/uL (4.3-11.0)
[2020-09-09 06:29] LABS: CHLORIDE 102 MMOL/L (98-107); POTASSIUM 4.3 MMOL/L (3.6-5.0); SODIUM 137 MMOL/L (135-145)
[2020-09-09 06:30] LABS: CALCIUM 8.7 MG/DL (8.5-10.1)
[2020-09-09] MEDS: KCL 20 MEQ TAB (K-DUR) PO SCH (06:30)
[2020-09-09 06:31] LABS: GLUCOSE 258 MG/DL (70-105)
[2020-09-09 06:32] LABS: CARBON DIOXIDE 22 MMOL/L (21-32)
[2020-09-09 06:34] LABS: PHOSPHORUS 2.4 MG/DL (2.3-4.7)
[2020-09-09 06:35] LABS: BUN/CREATININE RATIO 14; CREATININE SERUM 0.59 MG/DL (0.60-1.30); GFR ESTIMATED > 60
[2020-09-09] MEDS: inSUlin ASPART (NovoLOG) 1 UNIT/0.01 ML (CHARGE PER UNIT) SC SCH ×2 (06:41→12:00)
[2020-09-09] MEDS: RT-ALBUTEROL INHALER HFA (VENTOLIN HFA) 18 GM IH SCH ×2 (07:26→10:37)
[2020-09-09 08:00] VITALS: BP 128/79
--- NOTE | 2020-09-09 10:37 | Progress Note - Cardiology ---
Cardiology SOAP Progress Note Subjective: Lying in bed States he feels better and wants to go back to the skilled nursing No c/o CP, SOB or palpitations Objective: I&O/Vital Signs 09/08/20 09/09/20 23:57 04:28 Temp 36.2 36.4 Pulse 73 87 Resp B/P (MAP) 143/87 (105) 128/79 (95) Pulse Ox 98 98 O2 Delivery High Flow N/C High Flow N/C O2 Flow Rate 4.00 5.00 09/09/20 00:00 Intake Total 2020 ml Output Total 2380 ml Balance -360 ml Weight (Pounds): 324 Weight (Ounces): 3.0 Weight (Calculated Kilograms): 147.917956 Constitutional: other (mildly confused in his repsonses) Respiratory: No accessory muscle use; other (fair to good, bilateral air entry) Cardiovascular: regular rate-rhythm, S1 and S2, systolic murmur (soft DILLON at card base) Gastrointestional: No tender; soft; No guarding, No rebound; audible bowel sounds Extremities: other (mild, bilat leg edema); No clubbing, No cyanosis Neurologic/Psychiatric: other (moves all limbs equally) Skin: normal color, warm/dry; No cool, No rash on exposed areas, No ulcerations on exposed areas Results/Procedures: Labs Laboratory Tests 09/08/20 11:21: Glucometer 320H 09/08/20 15:50: Glucometer 233H 09/08/20 19:48: Glucometer 319H 09/09/20 05:45: Glucometer 231H 09/09/20 05:51: White Blood Count 6.2, Red Blood Count 4.41, Hemoglobin 12.4L, Hematocrit 39L, Mean Corpuscular Volume 87, Mean Corpuscular Hemoglobin 28, Mean Corpuscular Hemoglobin Concent 32, Red Cell Distribution Width 14.9H, Platelet Count 379, Mean Platelet Volume 9.9, Immature Granulocyte % (Auto) 3, Neutrophils (%) (Auto) 67, Lymphocytes (%) (Auto) 11L, Monocytes (%) (Auto) 15H, Eosinophils (%) (Auto) 4, Basophils (%) (Auto) 1, Neutrophils # (Auto) 4.1, Lymphocytes # (Auto) 0.7L, Monocytes # (Auto) 0.9, Eosinophils # (Auto) 0.2, Basophils # (Auto) 0.0, Immature Granulocyte # (Auto) 0.2H, Sodium Level 137, Potassium Level 4.3, Chloride Level 102, Carbon Dioxide Level 22, Anion Gap 13, Blood Urea Nitrogen 8, Creatinine 0.59L, Estimat Glomerular Filtration Rate > 60, BUN/Creatinine Ratio 14, Glucose Level 258H, Calcium Level 8.7, Phosphorus Level 2.4, Magnesium Level 2.0 Microbiology 09/03/20 Gram Stain - Final, Resulted 09/03/20 Anaerobic Culture - Final, Resulted No anaerobes isolated 09/03/20 Body Fluid Culture - Final, Resulted Strep anginosus Strep anginosus#2 Granulicatella adiacens 09/03/20 Fungal Culture 1 - Preliminary, Resulted 09/01/20 Urine Culture - Final, Complete NO GROWTH 09/01/20 MRSA Screen - Final, Complete MRSA not isolated 08/31/20 Blood Culture - Final, Complete No growth Laboratory Tests 09/08/20 07:25 09/09/20 05:51 A/P: Assessment: Sinus node dysfunction - 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 (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) Echo 09-02-20: LVEF 60-65%, PASP 40-45 mmHg Right lower lobe pneumonia and sepsis, improved, managed by primary care team Right-sided pleural effusion, questionable empyema, managed by primary care team Coronary artery disease, history of cardiac catheterization in 2012, nonobstr uctive coronary artery disease, no chest pain was reported at this time Diabetes mellitus, followed and managed by primary care physician Hypertension History of pannus cellulitis and left leg ulcer with cellulitis, currently stable Plan: * Monitor labs * Cardiac status appear clinically stable * Continue current regimen KALEIGH OSCAR Sep 09, 2020 10:37
[2020-09-09] MEDS: GABAPENTIN 300 MG (NEURONTIN) CAP PO SCH (10:41)
[2020-09-09] MEDS: FINASTERIDE (PROSCAR) 5 MG TAB PO SCH (10:41)
[2020-09-09] MEDS: amLODIPine 10 MG (NORVASC) TAB PO SCH (10:41)
[2020-09-09] MEDS: ASPIRIN E.C. 81 MG (ECOTRIN) TAB PO SCH (10:41)
[2020-09-09] MEDS: APIXABAN 5 MG (ELIQUIS) TABLET PO SCH (10:42)
[2020-09-09] MEDS: ENALAPRIL 10 MG (VASOTEC) TAB PO SCH (10:42)
[2020-09-09] MEDS ORDERED: ENAL10TA16 PO (10:48)
[2020-09-09] MEDS ORDERED: APIX5TAB PO (10:48)
[2020-09-09] MEDS ORDERED: CEFD300C3 PO (10:48)
--- NOTE | 2020-09-09 10:51 | Discharge Inst-Skilled Nursing ---
Discharge Inst-Skilled NF Reconcile Patient Problems Problems Reviewed?: Yes Chief Complaint CC: Septic shock HPI: This is a very debilitated snf patient of [facility] who presented to the ER with acute illness. Dyspnea was reported at the NH and fever of 101.6 and negative COVID swab Wednesday was negative. Patient was dx with PNA and dx with septic shock. Patient is currently sleeping but very chronically ill and andrade and ashen. Patient is a DNR. Dr Childs consulted for right sided effusion vs. empyema. Patient Instructions Patient Problems: s/p septic shock UTI Goal: [place] Consult/Follow Up/Orders Follow Up Appt.: [facility] PCP rounds Skilled NF Admit to: [facility] ([facility]) I certify that SNF services are required to be given on an inpatient basis because of the above named patient's need for nursing home care on a continuing basis for the conditions(s) for which he/she was receiving inpatient hospital services prior to his/her transfer to the [facility]. [facility] Facility Order: Nursing Services, [facility]-Evaluate & Treat, Physical Therapy-Evaluate & Treat Oxygen Delivery Method: Nasal Cannula Discharge Diet: ADA Diet Resuscitation Status: Do Not Resuscitate New & Resume Previous Orders New Medications: Cefdinir (Cefdinir) 300 Mg Capsule 300 MG PO BID for 7 Days, CAP Apixaban (Eliquis) 5 Mg Tablet 5 MG PO BID for 365 Days, TAB Enalapril Maleate (Enalapril Maleate) 10 Mg Tablet 20 MG PO BID for 365 Days, TAB Continued Medications: Acetaminophen (Tylenol) 325 Mg Tablet 650 MG PO Q4H PRN for PAIN-MILD, TAB TAKES 2 (325MG) TABLETS Acetaminophen (Tylenol) 325 Mg Tablet 650 MG PO DAILY, TAB TAKES 2 (325MG) TABS Albuterol Sulfate (Albuterol Sulfate) 2.5 Mg/3 Ml Vial.neb 3 ML NEB Q4H PRN for SHORTNESS OF BREATH, EA Amlodipine Besylate (Amlodipine Besylate) 10 Mg Tablet 10 MG PO DAILY, TAB Aspirin (Aspirin EC) 81 Mg Tablet.dr 81 MG PO DAILY, TAB Atorvastatin Calcium (Atorvastatin Calcium) 10 Mg Tablet 10 MG PO 1600, TAB Benzocaine/Menthol (Cepacol Sore Throat Lozenge) 1 Each Lozenge 1 ANNIE MM UD PRN for COUGH, LOZENGE Carboxymethylcellulose Sodium (Artificial Tears) 15 Ml Drops 1 DROP OU BID, DROPS Cetirizine HCl (Cetirizine HCl) 10 Mg Tablet 10 MG PO DAILY, TAB Dapagliflozin Propanediol (Farxiga) 10 Mg Tablet 10 MG PO DAILY, TAB Docusate Sodium (Colace) 100 Mg Capsule 100 MG PO BID, CAP Finasteride (Finasteride) 5 Mg Tablet 5 MG PO DAILY, TAB Furosemide (Furosemide) 20 Mg Tablet 20 MG PO DAILY, TAB Gabapentin (Neurontin) 300 Mg Capsule 300 MG PO BID, CAP Insulin Detemir (Levemir Flextouch) 100 Unit/1 Ml Insuln.pen 33 UNITS SC DAILY, EA Insulin Lispro (Humalog) 100 Unit/1 Ml Vial 22 UNITS SC AC, EA Ketoconazole (Ketoconazole) 15 Gm Cream..g. 1 APPLIC TOP BID, TAB Lactobacillus Acidophilus (Probiotic) 1 Each Capsule 1 CAP PO BID, CAP Loperamide HCl (Loperamide) 2 Mg Capsule PO UD PRN for LOOSE STOOLS, CAP TAKE 2 CAPSULES AFTER FIRST LOOSE STOOL THEN TAKE 1 CAPSULE AFTER EACH SUBSEUENT LOOSE STOOL. MAX 4 CAPS IN 24 HOURS Magnesium Hydroxide (Milk of Magnesia) 400 Mg/5 Ml Oral.susp 30 ML PO DAILY PRN for CONSTIPATION-7TH LINE, ML Menthol (Biofreeze) 118 Ml Gel..ml. 1 APPLIC TP Q6H PRN for SHOULDER PAIN, TUBE Metformin HCl (Metformin HCl ER) 500 Mg Tab.er.24h 1000 MG PO BID, TAB TAKES 2 (500MG) TABS Metoprolol Tartrate (Metoprolol Tartrate) 25 Mg Tablet 25 MG PO BID, TAB HOLD IF SBP <90, PULSE <60 Miconazole Nitrate (Lotrimin AF) 133 Gm Aero.powd 1 APPLIC TP PRN PRN for CANDIDIAS OF SKIN AND NAILS, GM Mirabegron (Myrbetriq) 50 Mg Tab.er.24h 50 MG PO DAILY, TAB Polyethylene Glycol 3350 (Miralax) 17 Gm Powd.pack 17 GM PO Q12H PRN for CONSTIPATION-2ND LINE, EACH Propylene Glycol (Systane Balance) 10 Ml Drops 1 DROP OU Q4H PRN for DRY EYES, DROPS Tamsulosin HCl (Flomax) 0.4 Mg Cap 0.4 MG PO 1730, CAP Discontinued Medications: Enalapril Maleate (Enalapril Maleate) 10 Mg Tablet 10 MG PO BID, TAB HOLD IF SBP <90 PULSE <60 Ibuprofen (Ibuprofen) 200 Mg Capsule 400 MG PO Q6H PRN for PAIN-MILD (1-4), KAREEN Foley Sep 09, 2020 10:50 MINNIE FOLEY DO Sep 09, 2020 10:51
--- NOTE | 2020-09-09 10:51 | Discharge Summary ---
Discharge Summary Hospital Course Was the Problem List Reviewed?: Yes Problems/Dx: (1) Septic shock Status: Resolved (2) Respiratory failure Status: Acute Qualifiers: Qualified Codes: J96.01 - Acute respiratory failure with hypoxia (3) Pneumonia Qualifiers: Qualified Codes: J18.9 - Pneumonia, unspecified organism (4) Hypertension Status: Chronic Qualifiers: Qualified Codes: I10 - Essential (primary) hypertension (5) Diabetes mellitus, type 2 Status: Chronic (6) Debility Status: Chronic (7) Dementia Status: Chronic Qualifiers: Qualified Codes: F03.90 - Unspecified dementia without behavioral disturbance Hospital Course Date of Admission: Aug 31, 2020 at 23:36 Admission Diagnosis : Family Physician/Provider: Kylie Stevenson Date of Discharge: 09/09/20 Discharge Diagnosis: septic shock, PNA, UTI Hospital Course: Hospital course: Pt had a lengthy hospital course after he was admitted for septic shock from pneumonia, he was found to be chronically debilitated so he was given aggressive treatment in the ER and overall finally stabilized but he became bed-bound and remained with a hassan catheter due to urinary incontinence and fecal incontinence and high risk for additional wounds, home O2 evaluation was completed, he required 6 liters, remains a DNR, but remains very poor prognosis and in reality is a hospice candidate, he will be discharged on oral antibiotics for seven days. Labs and Pending Lab Test: Laboratory Tests 09/08/20 11:21: Glucometer 320H 09/08/20 15:50: Glucometer 233H 09/08/20 19:48: Glucometer 319H 09/09/20 05:45: Glucometer 231H 09/09/20 05:51: White Blood Count 6.2, Red Blood Count 4.41, Hemoglobin 12.4L, Hematocrit 39L, Mean Corpuscular Volume 87, Mean Corpuscular Hemoglobin 28, Mean Corpuscular Hemoglobin Concent 32, Red Cell Distribution Width 14.9H, Platelet Count 379, Mean Platelet Volume 9.9, Immature Granulocyte % (Auto) 3, Neutrophils (%) (Auto) 67, Lymphocytes (%) (Auto) 11L, Monocytes (%) (Auto) 15H, Eosinophils (%) (Auto) 4, Basophils (%) (Auto) 1, Neutrophils # (Auto) 4.1, Lymphocytes # (Auto) 0.7L, Monocytes # (Auto) 0.9, Eosinophils # (Auto) 0.2, Basophils # (Auto) 0.0, Immature Granulocyte # (Auto) 0.2H, Sodium Level 137, Potassium Level 4.3, Chloride Level 102, Carbon Dioxide Level 22, Anion Gap 13, Blood Urea Nitrogen 8, Creatinine 0.59L, Estimat Glomerular Filtration Rate > 60, BUN/Creatinine Ratio 14, Glucose Level 258H, Calcium Level 8.7, Phosphorus Level 2.4, Magnesium Level 2.0 Microbiology 09/03/20 Gram Stain - Final, Resulted 09/03/20 Anaerobic Culture - Final, Resulted No anaerobes isolated 09/03/20 Body Fluid Culture - Final, Resulted Strep anginosus Strep anginosus#2 Granulicatella adiacens 09/03/20 Fungal Culture 1 - Preliminary, Resulted 09/01/20 Urine Culture - Final, Complete NO GROWTH 09/01/20 MRSA Screen - Final, Complete MRSA not isolated 08/31/20 Blood Culture - Final, Complete No growth Home Meds Active Cefdinir 300 Mg Capsule 300 Mg PO BID 7 Days Enalapril Maleate 10 Mg Tablet 20 Mg PO BID 365 Days Eliquis (Apixaban) 5 Mg Tablet 5 Mg PO BID 365 Days Reported Lotrimin AF (Miconazole Nitrate) 133 Gm Aero.powd 1 Applic TP PRN PRN Systane Balance (Propylene Glycol) 10 Ml Drops 1 Drop OU Q4H PRN Ibuprofen 200 Mg Capsule 400 Mg PO Q6H PRN Albuterol Sulfate 2.5 Mg/3 Ml Vial.neb 3 Ml NEB Q4H PRN Ketoconazole 15 Gm Cream..g. 1 Applic TOP BID Neurontin (Gabapentin) 300 Mg Capsule 300 Mg PO BID Metoprolol Tartrate 25 Mg Tablet 25 Mg PO BID HOLD IF SBP <90, PULSE <60 Metformin HCl ER (Metformin HCl) 500 Mg Tab.er.24h 1,000 Mg PO BID TAKES 2 (500MG) TABS Farxiga (Dapagliflozin Propanediol) 10 Mg Tablet 10 Mg PO DAILY Cetirizine HCl 10 Mg Tablet 10 Mg PO DAILY Amlodipine Besylate 10 Mg Tablet 10 Mg PO DAILY Artificial Tears (Carboxymethylcellulose Sodium) 15 Ml Drops 1 Drop OU BID Tylenol (Acetaminophen) 325 Mg Tablet 650 Mg PO DAILY TAKES 2 (325MG) TABS Finasteride 5 Mg Tablet 5 Mg PO DAILY Myrbetriq (Mirabegron) 50 Mg Tab.er.24h 50 Mg PO DAILY Miralax (Polyethylene Glycol 3350) 17 Gm Powd.pack 17 Gm PO Q12H PRN Milk of Magnesia (Magnesium Hydroxide) 400 Mg/5 Ml Oral.susp 30 Ml PO DAILY PRN Loperamide (Loperamide HCl) 2 Mg Capsule PO UD PRN TAKE 2 CAPSULES AFTER FIRST LOOSE STOOL THEN TAKE 1 CAPSULE AFTER EACH SUBSEUENT LOOSE STOOL. MAX 4 CAPS IN 24 HOURS Atorvastatin Calcium 10 Mg Tablet 10 Mg PO 1600 Levemir Flextouch (Insulin Detemir) 100 Unit/1 Ml Insuln.pen 33 Units SC DAILY Furosemide 20 Mg Tablet 20 Mg PO DAILY Probiotic (Lactobacillus Acidophilus) 1 Each Capsule 1 Cap PO BID Humalog (Insulin Lispro) 100 Unit/1 Ml Vial 22 Units SC AC Flomax (Tamsulosin HCl) 0.4 Mg Cap 0.4 Mg PO 1730 Enalapril Maleate 10 Mg Tablet 10 Mg PO BID HOLD IF SBP <90 PULSE <60 Colace (Docusate Sodium) 100 Mg Capsule 100 Mg PO BID Cepacol Sore Throat Lozenge (Benzocaine/Menthol) 1 Each Lozenge 1 Oralia MM UD PRN Tylenol (Acetaminophen) 325 Mg Tablet 650 Mg PO Q4H PRN TAKES 2 (325MG) TABLETS Biofreeze (Menthol) 118 Ml Gel..ml. 1 Applic TP Q6H PRN Aspirin EC (Aspirin) 81 Mg Tablet.dr 81 Mg PO DAILY Assessment/Pt Instructions [place] rounds [facility] Discharge Planning: >30 minutes discharge planning Discharge Instructions Discharge Diet: ADA Diet Activity as Tolerated: Yes Discharge Physical Examination Vital Signs Vital Signs Date Time Temp Pulse Resp B/P (MAP) Pulse Ox O2 Delivery O2 Flow Rate FiO2 09/09/20 04:28 36.4 87 22 128/79 (95) 98 High Flow N/C 5.00 09/05/20 16:22 50 General Appearance: No Apparent Distress, WD/WN, Chronically ill Respiratory: Lungs Clear Cardiovascular: Regular Rate, Rhythm Neurologic/Psychiatric: Alert, Oriented x3 Allergies: Coded Allergies: No Known Drug Allergies (Unverified , 01/03/19) Discharge Summary Date of Admission Aug 31, 2020 at 23:36 Date of Discharge Discharge Date: Sep 09, 2020 Admission Diagnosis Assessment: Septic shock PNA Right sided pleural effusion vs. empyema DM Dementia Plan: Abx IVF Monitor closely Discharge Diagnosis (1) Septic shock Status: Resolved (2) Respiratory failure Status: Acute Qualifiers: Qualified Codes: J96.01 - Acute respiratory failure with hypoxia (3) Pneumonia Qualifiers: Qualified Codes: J18.9 - Pneumonia, unspecified organism (4) Hypertension Status: Chronic Qualifiers: Qualified Codes: I10 - Essential (primary) hypertension (5) Diabetes mellitus, type 2 Status: Chronic (6) Debility Status: Chronic (7) Dementia Status: Chronic Qualifiers: Qualified Codes: F03.90 - Unspecified dementia without behavioral disturbance MINNIE SANDERS DO Sep 09, 2020 10:51
--- NOTE | 2020-09-09 11:20 | Progress Note ---
DORENE [facility] 09/09/20 1120: Progress Note Jacob Quinones is a 79 y/o male that was admitted to [facility] on 08/31 and will be discharged today 09/09. He was admitted for septic shock, PNA with Right pleural effusion/empyema and increasing shortness of air. PMH includes but is not limited to hx of PNA, High cholesterol, HTN, DM, Dementia, Arthritis and Constipation. While admitted he was under the care of Internal Medicine Dr. Mendoza, Dr. Sanders, Dr. Galvan, Cardiology Dr. Esparza and Dr. Hansen, and General surgery Dr. Childs and Dr. Orosco. Initial presentation revealed leukocytosis, elevated CRP and Procalcitonin, increasing SOB, Hypotension, 101.6 fever and an oxygen saturation in the low 80s on 6L NC. Treatment included but was not limited to NIV oxygen supplementation, IV antibiotics and fluids, Chest tube, respiratory care, chest ct, ECHO and serial chest x-rays. Overall the patient has improved. His vitals are stable. He is breathing much better. chest imaging is improved. All labs have reached a normal or acceptable range. He is tolerating his diet and denies pain at this time. He states he is ready to go back to the longterm at this time. The patient will be discharged today in stable condition. He is to follow all instructions detailed in discharge paperwork. The following information is only a summary of the patients admission while at [facility] and is not all inclusive. Please review entire chart for more information. TYRA SANDERS DO 09/10/20 0618: Supervisory-Addendum Brief Verification & Attestation Participated in pt care: history, MDM, physical Personally performed: exam, history, MDM, supervision of care Care discussed with: Medical Student Procedures: n/a Results interpretation: Verified all documentation Verification and Attestation of Medical Student E/M Service A medical student performed and documented this service in my presence. I reviewed and verified all information documented by the medical student and made modifications to such information, when appropriate. I personally performed the physical exam and medical decision making. Tyra Sanders Sep 10, 2020,06:17 [facility] Sep 09, 2020 11:20 TYRA SANDERS DO Sep 10, 2020 06:18
--- NOTE | 2020-09-09 11:42 | Occupational Therapy Eval ---
OT Evaluation-General/PLF Medical Diagnosis Admission Date Aug 31, 2020 at 23:36 Medical Diagnosis: Septic shock Onset Date: Aug 31, 2020 Therapy Diagnosis Therapy Diagnosis: Decreased ADL status Height/Weight Height (Feet): 6 Height (Inches): 2.00 Weight (Pounds): 324 Weight (Ounces): 3.0 Precautions Precautions/Isolations: Fall Prevention, Standard Precautions Referral Physician: Alaina Referral Reason: Activity Tolerance, Self Care, Evaluation/Treatment, Strengthening/ROM Medical History Pertinent Medical History: Arthritis, DM, Dementia Additional Medical History dementia, HTN, arthritis, [place], NIDDM Current History Per pt, had fall at SNF. Per notes, pt has R sided PE with acute resp failure/ PNA. Reviewed History: Yes Social History Home: Care Home Entry Into Home: Level Entry ADL-Prior Level of Function SCALE: Activities may be completed with or without assistive devices. 9-Tbsrxslyzl-[id number] completes the activity by him/herself with no assistance from a helper. 5-Set-up or Clean-up Assistance-helper sets up or cleans up; patient completes activity. [place] assists only prior to or following the activity. 4-Supervision or Touching Assistance-helper provides verbal cues and/or touching/steadying and/or contact guard assistance as patient completes activity. Assistance may be provided throughout the activity or intermittently. 3-Partial/Moderate Assistance-helper does LESS THAN HALF the effort. [place] lifts, holds or supports trunk or limbs, but provides less than half the effort. 2-Substantial/Maximal Assistance-helper does MORE THAN HALF the effort. [place] lifts or holds trunk or limbs and provides more than half the effort. 5-Odbxhlklc-hhyafq does ALL the effort. Patient does none of the effort to complete the activity. Or, the assistance of 2 or more helpers is required for the patient to complete the activity. If activity was not attempted, code reason: 7-Patient Refused. 9-Not Applicable-not attempted and the patient did not perform the activity before the current illness, exacerbation or injury. 10-Not Attempted due to Environmental Limitations-(lack of equipment, weather restraints, etc.). 88-Not Attempted due to Medical Conditions or Safety Concerns. ADL PLOF Comments Pt states staff utilized "lift" to get from EOB to w/c, fx mobility with w/c, max A from sit to EOB, and completes stance for urine output with grab bar, max A toilet transfer with pt standing at gb and completes showering with max A. Pt expresses TD with LB dressing/ footwear, able to complete oral care and feeding IND Self Care: Needed Some Help Functional Cognition: Needed Some Help (per dementia dx.) Occupation: retired. Drive Self: No OT Current Status Subjective Pt upright in bed, AxO. Pt states desire to go home. Pt denies pain, states may be weaker/ stronger than before but is unable to state how he feels. Pt expresses mod - TD for self care skills (LB/ toileting/ showering). Pt pleasant and laughing through session. Mental Status/Objective Patient Orientation: Person, Place, Situation Attachments: Garrett Catheter, Oxygen (6L) Current Glasses/Contacts: No Hearing Aids: No Dentures/Partials: No Upper Extremity ROM Decreased shoulder flexion bilaterally. 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 MMT/ ROM. Pt agrees to reach EOB. Pt is positioned, attempts hip flexion and abduction of leg toward EOB. Requires max A bilaterally to reach to EOB. Nursing states pt to d/c at 2 today. Pt expresses desire to eat, food enters, pt is assisted back to sitting position. Based on clinical findings, pt likely at PLOF for self care skills and plans to d/c back to SNF. D/c OT at this time. Pt left in bed with all needs met, call light in reach. Education OT Patient Education: Correct positioning, Purpose of tx/functional activities, Safety issues, Transfer techniques Teaching Recipient: Patient Teaching Methods: Demonstration, Discussion Response to Teaching: Verbalize Understanding, Return Demonstration OT Leaf Coverer Goals Leaf Coverer Goals 1=Demonstrate adherence to instructed precautions during ADL tasks. 2=Patient will verbalize/demonstrate understanding of assistive devices/modifications for ADL. 3=Patient will improve strength/tolerance for activity to enable patient to perform ADL's. OT Education/Plan Problem List/Assessment Assessment: No Skilled OT Needs ID'd Discharge Recommendations Plan/Recommendations: Discharge/Goals Met Therapy Discharge Recommendati: 24 Hour Supervision Treatment Plan/Plan of Care Treatment,Training & Education: Yes Patient would benefit from OT for education, treatment and training to promote independence in ADL's, mobility, safety and/or upper extremity function for ADL's. Plan of Care: OTHER (eval and d/c.) Treatment Duration: Sep 09, 2020 Frequency: 1 time per week (eval and d/c.) Rehab Potential: Fair Time/GCodes Start Time: 11:19 Stop Time: 11:30 Total Time Billed (hr/min): 11 Billed Treatment Time 1, EVM (11) d/c STEFFANIE LEY OTR Sep 09, 2020 11:42
[2020-09-09 12:00] VITALS: BP 121/65
--- NOTE | 2020-09-09 14:04 | Physical Therapy Evaluation ---
PT Evaluation-General Medical Diagnosis Admission Date Aug 31, 2020 at 23:36 Medical Diagnosis: Septic shock Onset Date: Aug 31, 2020 Therapy Diagnosis Therapy Diagnosis: debility/weakness Height/Weight Height (Feet): 6 Height (Inches): 2.00 Weight (Pounds): 324 Weight (Ounces): 3.0 Precautions Precautions/Isolations: Fall Prevention, Standard Precautions Weight Bear Status Right Lower Extremity: Right Non Weight Bearing Left Lower Extremity: Left Non Weight Bearing Referral Physician: Alaina Reason for Referral: Evaluation/Treatment Medical History Pertinent Medical History: Arthritis, DM, Dementia Additional Medical History morbid obesity Current History EMS secondary to SOA Reviewed History: Yes Social History Home: Jail Entry Into Home: Level Entry Prior Prior Level of Function SCALE: Activities may be completed with or without assistive devices. 0-Nswuksoquk-ekcmtwf completes the activity by him/herself with no assistance from a helper. 5-Set-up or Clean-up Assistance-helper sets up or cleans up; patient completes activity. [place] assists only prior to or following the activity. 4-Supervision or Touching Assistance-helper provides verbal cues and/or touching/steadying and/or contact guard assistance as patient completes activity. Assistance may be provided throughout the activity or intermittently. 3-Partial/Moderate Assistance-helper does LESS THAN HALF the effort. [place] lifts, holds or supports trunk or limbs, but provides less than half the effort. 2-Substantial/Maximal Assistance-helper does MORE THAN HALF the effort. [place] lifts or holds trunk or limbs and provides more than half the effort. 2-Cscmapqcp-dxjgbr does ALL the effort. Patient does none of the effort to complete the activity. Or, the assistance of 2 or more helpers is required for the patient to complete the activity. If activity was not attempted, code reason: 7-Patient Refused. 9-Not Applicable-not attempted and the patient did not perform the activity bef ore the current illness, exacerbation or injury. 10-Not Attempted due to Environmental Limitations-(lack of equipment, weather r estraints, etc.). 88-Not Attempted due to Medical Conditions or Safety Concerns. Bed Mobility: 1 (x 2) Transfers (B,C,W/C): 1 (x 2 Julianne lift) Gait: 9 Stairs: 9 Wheelchair Mobility: 1 Indoor Mobility (Ambulation): Not [place] Prior Devices Use: Manual wheelchair PT Evaluation-Current Subjective Patient incontinent BM requiring assistance to cleanse and change. Objective Patient Orientation: Person, Time, Situation ROM/Strength ROM Lower Extremities bilateral limited due to immobility PLOF Strength Lower Extremities 2/5 grossly bilateral LE Integumentary/Posture Integumentary refer to nursing notes Bowel Incontinence: Yes Bladder Incontinence: Garrett Cath Neuromuscular (Tone, Coordination, Reflexes) severely diminished with all Sensory Vision: Functional Hearing: Functional Transfers Roll Left to Right (QC): 1 (x 2) Julianne lift transfer PLOF Gait Does the Patient Walk?: No and Walking Goal NOT indicated Assessment/Needs 79 y.o. male, is dependent PLOF with all gross motor skills and will return to DC at for continued care. Rehab Potential: Guarded PT Plan Treatment/Plan Treatment Plan: Discontinue PT, goals met Treatment Duration: Sep 09, 2020 Frequency: 1 time per week Estimated Hrs Per Day: .25 hour per day Patient and/or Family Agrees t: Yes Time/GCodes Time In: 1315 Time Out: 1329 Total Billed Treatment Time: 14 Total Billed Treatment 1 visit [facility] 14 min GONZALO MILIAN PT Sep 09, 2020 14:04
[2020-09-09 14:10] VITALS: BP 121/65
== END 2020-09-09 14:22 | DRG 871 ==
LOC: EDUNIT# 21:22 → ER 21:23 → ICU 23:36 → 4TH 09-06 12:46
PROVIDERS: ADMIT Internal Medicine; ATTEND Internal Medicine
PROC: 5A09357 Assistance with Respiratory Ventilation, Less than 24 Consecutive Hours, Continuous Positive Airway Pressure (ICD-10-PCS; principal; 2020-09-01)
PROC: 0W9930Z Drainage of Right Pleural Cavity with Drainage Device, Percutaneous Approach (ICD-10-PCS; 2020-09-03)
DX: A41.9 Sepsis, unspecified organism (principal); R65.21 Severe sepsis with septic shock; J18.9 Pneumonia, unspecified organism; J96.01 Acute respiratory failure with hypoxia; J90 Pleural effusion, not elsewhere classified; Z68.41 Body mass index [BMI] 40.0-44.9, adult; E78.00 Pure hypercholesterolemia, unspecified; I10 Essential (primary) hypertension; F03.90 Unspecified dementia, unspecified severity, without behavioral disturbance, psychotic disturbance, mood disturbance, and anxiety; M19.90 Unspecified osteoarthritis, unspecified site; E11.9 Type 2 diabetes mellitus without complications; Z79.4 Long term (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; J43.9 Emphysema, unspecified; R53.81 Other malaise; I25.10 Atherosclerotic heart disease of native coronary artery without angina pectoris; R32 Unspecified urinary incontinence; R13.10 Dysphagia, unspecified; Z79.82 Long term (current) use of aspirin; E66.01 Morbid (severe) obesity due to excess calories; D64.9 Anemia, unspecified; Z20.822 Contact with and (suspected) exposure to COVID-19; I48.0 Paroxysmal atrial fibrillation; I49.5 Sick sinus syndrome
CPT/HCPCS: 36415; 71045; 71260; 77012; 80048; 80053; 80076; 81000; 82042; 82805; 82945; 82962; 83036; 83605; 83615; 83735; 83880; 83986; 84100; 84145; 84157; 84478; 85007; 85025; 85027; 85610; 85730; 86141; 87040; 87070; 87075; 87077; 87081; 87088; 87101; 87181; 87184; 87205; 87635; 87804; 88112; 88305; 89051; 93005; 93306; 94640; 94660; 94760; 94761; 96361; 96365

== ENCOUNTER 2021-01-11 18:08 | Inpatient (IN) | payer MEDICARE, OTHER, MEDICAID ==
[~2021-01-11] VITALS: Ht 187.9 cm; Wt 131.6 kg
[~2021-01-11 18:08] MED LIST changes: +ALBU2.5V4 NEB; +AMLO-251 PO; +APIX5TAB PO; +CARB-254 OU; +CEFD300C3 PO; +CETI10TA17 PO; +DAPA10TA PO; +GABA300C PO; +IBUP-2185 PO; +KETO15CR2 TOP; +METF-865 PO; +METO-333 PO; +MICO133A2 TP; +PROP10DR3 OU
[2021-01-11] MEDS ORDERED: DEXTROSE 50% 50 ML (IMS) SYR ONE (18:13)
[2021-01-11] MEDS: DEXTROSE 50% 50 ML (IMS) SYR IV ONE ×2 (18:15→18:40)
[2021-01-11 18:21] LABS: BASOPHILS # (AUTO) 0.1 10^3/uL (0.0-0.1); BASOPHILS % (AUTO) 1 % (0-10); EOSINOPHILS # (AUTO) 0.1 10^3/uL (0.0-0.3); EOSINOPHILS % (AUTO) 1 % (0-10); HEMATOCRIT 40 % (40-54); HEMOGLOBIN 12.4 g/dL (13.3-17.7); LYMPHOCYTES # (AUTO) 0.7 10^3/uL (1.0-4.0); LYMPHOCYTES % (AUTO) 6 % (12-44); MEAN CORPUSCULAR HEMOGLOBIN 28 pg (25-34); MEAN CORPUSCULAR HGB CONC 31 g/dL (32-36); MEAN CORPUSCULAR VOLUME 92 fL (80-99); MEAN PLATELET VOLUME 10.1 fL (9.0-12.2); MONOCYTES # (AUTO) 0.9 10^3/uL (0.0-1.0); MONOCYTES % (AUTO) 8 % (0-12); NEUTROPHILS # (AUTO) 10.2 10^3/uL (1.8-7.8); NEUTROPHILS % (AUTO) 85 % (42-75); PLATELET COUNT 399 10^3/uL (130-400)
[2021-01-11] MEDS ORDERED: D5 1/2 NS 1000 ML IV SOLUTION 1,000 ML IV ONE (18:30)
[2021-01-11 18:36] LABS: ALBUMIN 3.4 GM/DL (3.2-4.5)
[2021-01-11 18:37] LABS: CHLORIDE 108 MMOL/L (98-107); POTASSIUM 4.8 MMOL/L (3.6-5.0); SODIUM 141 MMOL/L (135-145)
[2021-01-11 18:38] LABS: CALCIUM 9.6 MG/DL (8.5-10.1)
[2021-01-11 18:39] LABS: GLUCOSE 118 MG/DL (70-105); TOTAL PROTEIN 7.3 GM/DL (6.4-8.2)
--- NOTE | 2021-01-11 18:39 | ED General ---
General Stated Complaint: HYPOGLYCEMIC Source of Information: Patient (LIMITED HISTORIAN), EMS, [facility] Records, Old Records, Other (ALL HISTORY IS FROM OLD CHARTS AND LONG-TERM PAPERS) History of Present Illness Date Seen by Provider: Jan 11, 2021 Time Seen by Provider: 18:10 Initial Comments PT ARRIVES VIA EMS FROM [facility] EMS CALLED FOR LOW BLOOD SUGAR AND LOW OXYGEN LEVEL EMS REPORT THAT LONG-TERM REPORTED BLOOD GLUCOSE IN 30'S FOR LONG-TER[facility], EMS REPORTS THAT [facility]-TERM POSSIBLY PUT HONEY IN PT'S MOUTH PRIOR TO THEIR ARRIVAL ACCUCHECK 66 FOR EMS AT SCENE NO IV ACCESS BY EMS, NO TREATMENT GIVEN EMS REPORT NO O2 ON PATIENT OR IN ROOM--O2 SATS 70-80% ON ROOM AIR. PT DOES NOT APPEAR DSYPNEIC AT ALL--RESPIRATIONS ARE EVEN AND UNLABORED. O2 SAT 70% ON ROOM AIR ON ARRIVAL TO ER PT IS LETHARGIC, BUT IS ABLE TO ANSWER A FEW SIMPLE QUESTIONS PT STATES HE DIDN'T EAT ANYTHING TODAY--STATES HE DOES NOT KNOW WHY PT DENIES NAUSEA/VOMITING DENIES ABDOMINAL PAIN DENIES CHEST PAIN DENIES SHORTNESS OF BREATH DENIES COUGH DENIES ANY FEVER RAPID COVID-19 TEST DONE AT [facility]-TERM JUST PRIOR TO ARRIVAL WAS NEGATIVE PT IS ON LEVEMIR, NOVOLOG, METFORMIN AND FARXIGA PT IS DNR MUCH LATER DURING ER COURSE, [facility]-TERM CALLED AND GAVE A REPORT THEY REPORT THAT PT ATE BREAKFAST BUT HAS NOT HAD ANYTHING TO EAT SINCE THEN THEY GAVE HIM HIS INSULIN AND ALL OF HIS OTHER MEDICATIONS THEY WENT TO CHECK ON HIM AROUND 1630 AND FOUND HIM TO BE ESSENTIALLY UNRESPONSIVE, BLOOD SUGAR WAS 42, SO THEY GAVE HIM SOME HONEY AND ORANGE JUICE WITH SUGAR IN IT. PT DID NOT IMPROVE AND AT 1705 GAVE UNKNOWN DOSE OF GLUCAGON, BLOOD SUGAR WAS 54 AFTER THAT AND PT DID NOT IMPROVE. VITALS AT [facility]-TERM: O2 SAT 76% ON ROOM AIR BP 112/45 PULSE 77 TEMP 98.5 PCP: DR. DAVIDSON Allergies and Home Medications Allergies Coded Allergies: No Known Drug Allergies (Unverified , 01/03/19) Home Medications Acetaminophen 325 Mg Tablet, 650 MG PO Q4H PRN for PAIN-MILD, (Reported) TAKES 2 (325MG) TABLETS Last Action: Reviewed Acetaminophen 325 Mg Tablet, 650 MG PO DAILY, (Reported) TAKES 2 (325MG) TABS Last Action: Reviewed Albuterol Sulfate 2.5 Mg/3 Ml Vial.neb, 3 ML NEB Q4H PRN for SHORTNESS OF BREATH, (Reported) Last Action: Reviewed Amlodipine Besylate 10 Mg Tablet, 10 MG PO DAILY, (Reported) Last Action: Reviewed Apixaban 5 Mg Tablet, 5 MG PO BID Prescribed by: MINNIE SANDERS on 09/09/20 1048 Last Action: Reviewed Aspirin 81 Mg Tablet.dr, 81 MG PO DAILY, (Reported) Last Action: Reviewed Atorvastatin Calcium 10 Mg Tablet, 10 MG PO 1600, (Reported) Last Action: Reviewed Benzocaine/Menthol 1 Each Lozenge, 1 ANNIE MM UD PRN for COUGH, (Reported) Last Action: Reviewed Carboxymethylcellulose Sodium 15 Ml Drops, 1 DROP OU BID, (Reported) Last Action: Reviewed Cefdinir 300 Mg Capsule, 300 MG PO BID Prescribed by: MINNIE SANDERS on 09/09/20 1048 Cetirizine HCl 10 Mg Tablet, 10 MG PO DAILY, (Reported) Last Action: Reviewed Dapagliflozin Propanediol 10 Mg Tablet, 10 MG PO DAILY, (Reported) Last Action: Reviewed Docusate Sodium 100 Mg Capsule, 100 MG PO BID, (Reported) Last Action: Reviewed Enalapril Maleate 10 Mg Tablet, 20 MG PO BID Prescribed by: MINNIE SANDERS on 09/09/20 104 Last Action: Reviewed Escitalopram Oxalate 5 Mg Tablet, 5 MG PO DAILY, (Reported) Last Action: Reviewed Finasteride 5 Mg Tablet, 5 MG PO DAILY, (Reported) Last Action: Reviewed Furosemide 20 Mg Tablet, 20 MG PO DAILY, (Reported) Gabapentin 300 Mg Capsule, 300 MG PO BID, (Reported) Last Action: Reviewed Insulin Detemir 100 Unit/1 Ml Insuln.pen, 33 UNITS SC DAILY, (Reported) Last Action: Reviewed Insulin Lispro 100 Unit/1 Ml Vial, 22 UNITS SC AC, (Reported) Last Action: Reviewed Ketoconazole 15 Gm Cream..g., 1 APPLIC TOP BID, (Reported) Lactobacillus Acidophilus 1 Each Capsule, 1 CAP PO BID, (Reported) Loperamide HCl 2 Mg Capsule, PO UD PRN for LOOSE STOOLS, (Reported) TAKE 2 CAPSULES AFTER FIRST LOOSE STOOL THEN TAKE 1 CAPSULE AFTER EACH SUBSEUENT LOOSE STOOL. MAX 4 CAPS IN 24 HOURS Last Action: Reviewed Magnesium Hydroxide 400 Mg/5 Ml Oral.susp, 30 ML PO DAILY PRN for CONSTIPATION- 7TH LINE, (Reported) Last Action: Reviewed Menthol 118 Ml Gel..ml., 1 APPLIC TP Q6H PRN for SHOULDER PAIN, (Reported) Last Action: Reviewed Metformin HCl 500 Mg Tab.er.24h, 1,000 MG PO BID, (Reported) TAKES 2 (500MG) TABS Last Action: Reviewed Metoprolol Tartrate 25 Mg Tablet, 25 MG PO BID, (Reported) HOLD IF SBP <90, PULSE <60 Last Action: Reviewed Miconazole Nitrate 133 Gm Aero.powd, 1 APPLIC TP PRN PRN for CANDIDIAS OF SKIN AND NAILS, (Reported) Mirabegron 50 Mg Tab.er.24h, 50 MG PO DAILY, (Reported) Last Action: Reviewed Polyethylene Glycol 3350 17 Gm Powd.pack, 17 GM PO Q12H PRN for CONSTIPATION-2ND LINE, (Reported) Last Action: Reviewed Propylene Glycol 10 Ml Drops, 1 DROP OU Q4H PRN for DRY EYES, (Reported) Last Action: Reviewed Solifenacin Succinate 5 Mg Tablet, 5 MG PO DAILY, (Reported) Last Action: New Order Tamsulosin HCl 0.4 Mg Cap, 0.4 MG PO 1730, (Reported) Last Action: Reviewed Patient Home Medication List Home Medication List Reviewed: Yes Review of Systems Review of Systems Constitutional: see HPI Past Bffnaez-Qisain-Vaukas Hx Immunizations Up To Date Tetanus Booster (TDap): More than 5yrs Seasonal Allergies Seasonal Allergies: No Past Medical History Surgeries: Yes (surgical debridement of chronic wounds) Orthopedic Respiratory: Yes (RESP FAILURE/SEPTIC SHOCK/PNEUMONIA) Pneumonia Cardiac: Yes (CHRONIC ISCHEMIC HEART DZ) High Cholesterol, Hypertension Neurological: Yes (History of foot drop) Dementia Reproductive Disorders: No Genitourinary: Yes (INCONTINENT) Benign Prostatic Hyperpl, Bladder Infection Gastrointestinal: Yes Chronic Constipation Musculoskeletal: Yes (chronic debility, does not walk) Arthritis, Foot Drop Endocrine: Yes (MORBID OBESITY) Diabetes, Insulin dep HEENT: Yes (DENTAL CARIES) Cataract Loss of Vision: Bilateral Hearing Impairment: Hard of Hearing, Bilateral Hearing Aide Cancer: No Psychosocial: No Integumentary: Yes (MULTIPLE WOUNDS; CANDIDIASIS) Blood Disorders: No Family Medical History Cardiovascular disease 19 MOTHER (CHF) Diabetes mellitus 19 MOTHER Prostate cancer 19 FATHER Heart Disease, Cancer, Diabetes, Hypertension ADMITTED 09/09/20 WITH SEPTIC SHOCK, RESPIRATORY FAILURE, PNEUMONIA Physical Exam Vital Signs Vital Signs - First Documented 01/11/21 01/11/21 18:10 18:15 Temp 36.3 Pulse 84 Resp 23 B/P (MAP) 93/51 (65) Pulse Ox 88 O2 Delivery OxyMask O2 Flow Rate 10.00 FiO2 88 Capillary Refill : Height, Weight, BMI Height: 6'2.00" Weight: 324lbs. 3.0oz. 147.754603nq; 41.30 BMI Method:Stated General Appearance: WD/WN, Obese, Other (LETHARGIC, KEEPS EYES CLOSED BUT DOES ANSWER SOME SIMPLE QUESTIONS WITH CLEAR SPEECH) HEENT: PERRL/EOMI, Other (ORAL MUCOSA DRY) Respiratory: Normal Breath Sounds, No Accessory Muscle Use, No Respiratory Distress Cardiovascular: Regular Rate, Rhythm, No JVD, No Murmur Gastrointestinal: Non Tender, Soft, Other (OBESE) Extremity: No Pedal Edema Neurologic/Psychiatric: Other (MENTATION ABOVE. MOVES ALL EXTREMITIES, BUT IS GENERALLY WEAK) Skin: Warm/Dry, Pallor; No Rash Focused Exam Lactate Level 01/11/21 18:24: Lactic Acid Level 1.67 Lactic Acid Level Laboratory Tests Test 01/11/21 18:24 Lactic Acid Level 1.67 MMOL/L (0.50-2.00) Progress/Results/Core Measures Suspected Sepsis SIRS Temperature: Pulse: Respiratory Rate: Laboratory Tests 01/11/21 18:14: White Blood Count 12.0H Blood Pressure / Mean: 01/11/21 18:24: Lactic Acid Level 1.67 Laboratory Tests 01/11/21 18:14: Creatinine 1.29, INR Comment 1.3, Platelet Count 399, Total Bilirubin 0.2 Results/Orders Lab Results Laboratory Tests Test 01/11/21 18:14 01/11/21 18:21 01/11/21 18:24 01/11/21 18:28 Range/Units White Blood Count 12.0 H 4.3-11.0 10^3/uL Red Blood Count 4.40 4.30-5.52 10^6/uL Hemoglobin 12.4 L 13.3-17.7 g/dL Hematocrit 40 40-54 % Mean Corpuscular Volume 92 80-99 fL Mean Corpuscular Hemoglobin 28 25-34 pg Mean Corpuscular Hemoglobin Concent 31 L 32-36 g/dL Red Cell Distribution Width 14.1 10.0-14.5 % Platelet Count 399 130-400 10^3/uL Mean Platelet Volume 10.1 9.0-12.2 fL Immature Granulocyte % (Auto) 1 % Neutrophils (%) (Auto) 85 H 42-75 % Lymphocytes (%) (Auto) 6 L 12-44 % Monocytes (%) (Auto) 8 0-12 % Eosinophils (%) (Auto) 1 0-10 % Basophils (%) (Auto) 1 0-10 % Neutrophils # (Auto) 10.2 H 1.8-7.8 10^3/uL Lymphocytes # (Auto) 0.7 L 1.0-4.0 10^3/uL Monocytes # (Auto) 0.9 0.0-1.0 10^3/uL Eosinophils # (Auto) 0.1 0.0-0.3 10^3/uL Basophils # (Auto) 0.1 0.0-0.1 10^3/uL Immature Granulocyte # (Auto) 0.1 0.0-0.1 10^3/uL Neutrophils % (Manual) 76 % Lymphocytes % (Manual) 6 % Monocytes % (Manual) 8 % Band Neutrophils 9 % Atypical Lymphocytes 1 % Blood Morphology Comment NORMAL Prothrombin Time 16.5 H 12.2-14.7 SEC INR Comment 1.3 0.8-1.4 Activated Partial Thromboplast Time 38 H 24-35 SEC Sodium Level 141 135-145 MMOL/L Potassium Level 4.8 3.6-5.0 MMOL/L Chloride Level 108 H 98-107 MMOL/L Carbon Dioxide Level 22 21-32 MMOL/L Anion Gap 11 5-14 MMOL/L Blood Urea Nitrogen 40 H 7-18 MG/DL Creatinine 1.29 0.60-1.30 MG/DL Estimat Glomerular Filtration Rate 54 BUN/Creatinine Ratio 31 Glucose Level 118 H 70-105 MG/DL Calcium Level 9.6 8.5-10.1 MG/DL Corrected Calcium 10.1 8.5-10.1 MG/DL Magnesium Level 2.1 1.6-2.4 MG/DL Total Bilirubin 0.2 0.1-1.0 MG/DL Aspartate Amino Transf (AST/SGOT) 18 5-34 U/L Alanine Aminotransferase (ALT/SGPT) 20 0-55 U/L Alkaline Phosphatase 65 40-136 U/L Total Creatine Kinase 19 L 30-200 U/L Creatine Kinase MB 0.7 <6.6 NG/ML Troponin I < 0.028 <0.028 NG/ML C-Reactive Protein High Sensitivity 8.94 H 0.00-0.50 MG/DL B-Type Natriuretic Peptide 37.9 <100.0 PG/ML Total Protein 7.3 6.4-8.2 GM/DL Albumin 3.4 3.2-4.5 GM/DL Amylase Level 38 25-125 U/L Lipase 52 8-78 U/L Procalcitonin 0.23 H <0.10 NG/ML Blood Gas Puncture Site R RADIAL Blood Gas Patient Temperature 97.4 Arterial Blood pH 7.29 *L 7.37-7.43 Arterial Blood Partial Pressure CO2 49 H 35-45 MMHG Arterial Blood Partial Pressure O2 60 L 79-93 MMHG Arterial Blood HCO3 23 23-27 MMOL/L Arterial Blood Total CO2 24.6 21.0-31.0 MMOL/L Arterial Blood Oxygen Saturation 88 L 94-100 % Arterial Blood Base Excess -2.7 L -2.5-2.5 MMOL/L Chris Test YES-POS Blood Gas Ventilator Setting NO Blood Gas Inspired Oxygen 4L Lactic Acid Level 1.67 0.50-2.00 MMOL/L Influenza Type A (RT-PCR) Not Detected Not Detecte Influenza Type B (RT-PCR) Not Detected Not Detecte SARS-CoV-2 RNA (RT-PCR) Not Detected Not Detecte Test 01/11/21 18:35 01/11/21 18:36 01/11/21 19:18 01/11/21 19:39 Range/Units Urine Color YELLOW Urine Clarity CLEAR Urine pH 5.5 5-9 Urine Specific [place] 1.010 L 1.016-1.022 Urine Protein NEGATIVE NEGATIVE Urine Glucose (UA) 3+ H NEGATIVE Urine Ketones NEGATIVE NEGATIVE Urine Nitrite NEGATIVE NEGATIVE Urine Bilirubin NEGATIVE NEGATIVE Urine Urobilinogen 0.2 < = 1.0 MG/DL Urine Leukocyte Esterase 2+ H NEGATIVE Urine RBC (Auto) 2+ H NEGATIVE Urine RBC 5-10 H /HPF Urine WBC 10-25 H /HPF Urine Squamous Epithelial Cells 0-2 /HPF Urine Renal Epithelial Cells 5-10 /HPF Urine Crystals NONE /LPF Urine Bacteria MODERATE H /HPF Urine Casts NONE /LPF Urine Mucus SMALL H /LPF Urine Yeast FEW H /HPF Urine Culture Indicated YES Glucometer 162 H 226 H 70-110 MG/DL Erythrocyte Sedimentation Rate 100 H 0-30 MM/HR Blood Gas Puncture Site LEFT RADIAL Blood Gas Patient Temperature 36.4 Arterial Blood pH 7.35 L 7.37-7.43 Arterial Blood Partial Pressure CO2 45 35-45 MMHG Arterial Blood Partial Pressure O2 187 H 79-93 MMHG Arterial Blood HCO3 23 23-27 MMOL/L Arterial Blood Total CO2 24.0 21.0-31.0 MMOL/L Arterial Blood Oxygen Saturation 99 94-100 % Arterial Blood Base Excess -2.7 L -2.5-2.5 MMOL/L Chris Test YES-POS Blood Gas Ventilator Setting NO Blood Gas Inspired Oxygen 80% My Orders Orders - PRASHANTH HENRY DO Accucheck Stat ONCE (01/11/21 18:11) Ed Iv/Invasive Line Start (01/11/21 18:11) O2 (01/11/21 18:11) Monitor-Rhythm Ecg Trace Only (01/11/21 18:11) Cbc With Automated Diff (01/11/21 18:11) Comprehensive Metabolic Panel (01/11/21 18:11) Magnesium (01/11/21 18:11) Ua Culture If Indicated (01/11/21 18:11) D50w (Emergency) Syringe (Dextrose 50% 5 (01/11/21 18:15) Chest 1 View, Ap/Pa Only (01/11/21 18:14) Arterial Blood Gas (01/11/21 18:14) BNP (01/11/21 18:14) Creatine Kinase (01/11/21 18:14) Creatine Kinase Mb (01/11/21 18:14) Lactic Acid Analyzer (01/11/21 18:14) Procalcitonin (Pct) (01/11/21 18:14) Troponin I (01/11/21 18:14) D50w (Emergency) Syringe (Dextrose 50% 5 (01/11/21 18:13) Amylase (01/11/21 18:20) Hs C Reactive Protein (01/11/21 18:20) Lipase (01/11/21 18:20) Protime With Inr (01/11/21 18:20) Partial Thromboplastin Time (7/24/21 18:20) Blood Culture (01/11/21 18:20) Erythrocyte Sedimentation Rate (01/11/21 18:20) Ed Iv/Invasive Line Start (01/11/21 18:20) D5 1/2 Ns 1000 Ml Iv Solution (Dextrose (01/11/21 18:30) Covid 19 Inhouse Test (01/11/21 18:22) Influenza A And B By Pcr (01/11/21 18:22) Manual Differential (01/11/21 18:14) Ekg Tracing (01/11/21 18:23) Catheter(Urinary) Insert & Ass 03,15 (01/11/21 18:23) Accucheck Stat ONCE (01/11/21 18:36) Ct Head Wo-R/O Stroke (01/11/21 18:46) Urine Culture (01/11/21 18:48) Ed Iv/Invasive Line Start (01/11/21 18:48) Vital Signs Adult Sepsis Patie Q15M (01/11/21 18:48) Remove Rings In Anticipation O (01/11/21 18:48) Cefepime Injection (Maxipime Injection) (01/11/21 19:15) Vancomycin Injection (Vancomycin Injecti (01/11/21 19:15) Accucheck Stat ONCE (01/11/21 19:15) Medications Given in ED Vital Signs/I&O 01/11/21 01/11/21 18:10 18:15 Temp 36.3 Pulse 84 Resp 23 B/P (MAP) 93/51 (65) Pulse Ox 88 88 O2 Delivery OxyMask O2 Flow Rate 10.00 FiO2 88 Capillary Refill : Point of Care Testing Finger Stick Blood Glucose: 112 Blood Glucose Action Taken: PHYSICIAN AND RN NOTIFIED Progress Note : Progress Note ACCUCHECK 112 ON ARRIVAL HERE GIVEN 1 AMP D50 AND IV OF D5 1/2 NS STARTED REPEAT ACCUCHECK 162, THEN REPEAT 226 O2 SATS REMAINED IN 70'S-80'S ON O2 VIA OXIMASK, THEN PLACED ON BIPAP, WITH RAPID IMPROVEMENT IN O2 SATS TO UPPER 90'S INITIALLY, PT HAD NO IMPROVEMENT IN MENTATION WITH THESE MEASURES--PT REMAINED VERY LETHARGIC HOWEVER PRIOR TO ADMIT, PT IS MUCH MORE ALERT, EYES OPEN, ABLE TO ANSWER QUESTIONS BETTER PT HAS NO COMPLAINTS AT THIS TIME REPEAT ABG'S MUCH IMPROVED VITALS AT TIME OF ADMIT: O2 SATS 94-96% ON BIPAP HR IN 70'S BP 106/66 NO FEVER DURING ER STAY ECG Initial ECG Impression Date: Jan 11, 2021 Initial ECG Impression Time: 18:23 Initial ECG Rate: 81 Initial ECG Rhythm: Normal Sinus (RBBB) Initial ECG Comparisson: Unchanged Diagnostic Imaging Comments CXR--PER RADIOLOGIST REPORT AT 1906 FINDINGS: Stable overall appearance of the cardiomediastinal silhouette. There is no identified pneumothorax. There is mild blunting of the right lateral costophrenic angle. There is nonspecific right basilar airspace consolidation. There are mildly prominent interstitial opacities bilaterally. IMPRESSION: 1. Nonspecific right lower lobe airspace consolidation which may relate to aspiration, pneumonia, other alveolar consolidative process, and/or atelectasis. 2. Blunting of the right lateral costophrenic angle which may indicate a small right pleural effusion. 3. Bilateral interstitial opacities. Differential considerations include interstitial edema, atypical infection, and/or chronic lung changes. CT HEAD--PER RADIOLOGIST VERBAL REPORT AT 1933 IMPRESSION: 1. No identified acute intracranial abnormality. 2. Mild cerebral volume loss. Changes of encephalomalacia in the left anterior frontal lobe, and probable mild findings of chronic small vessel ischemic disease. Reviewed: Reviewed by Me Departure Communication (Admissions) 1936--SPOKE WITH DR. SANDERS, ACCEPTS PT FOR ADMIT. ORDERS NOTED. Impression Primary Impression: Septic shock Additional Impressions: Pneumonia Acute respiratory failure with hypoxia UTI (urinary tract infection) Hypoglycemia IDDM (insulin dependent diabetes mellitus) Altered mental status Dehydration Dementia Acidosis Disposition: 09 ADMITTED INPATIENT Condition: Improved Admissions Decision to Admit Reason: Admit from ER (General) Decision to Admit/Date: Jan 11, 2021 Time/Decision to Admit Time: 19:40 Departure-Patient Inst. Referrals: [facility] (PCP) Primary Care Physician CONTRERAS QUINN (Family) Primary Care Physician PRASHANTH HENRY DO Jan 11, 2021 18:38
[2021-01-11 18:40] LABS: CARBON DIOXIDE 22 MMOL/L (21-32)
[2021-01-11 18:41] LABS: BILIRUBIN,TOTAL 0.2 MG/DL (0.1-1.0)
[2021-01-11 18:42] LABS: ALKALINE PHOSPHATASE 65 U/L (40-136)
[2021-01-11 18:43] LABS: ATYPICAL LYMPHOCYTES 1 %; BAND NEUTROPHILS 9 %; CREATININE SERUM 1.29 MG/DL (0.60-1.30); GFR ESTIMATED 54; INR 1.3 (0.8-1.4); LYMPHOCYTES % (MANUAL) 6 %; MONOCYTES % (MANUAL) 8 %; NEUTROPHILS % (MANUAL) 76 %; PROTHROMBIN TIME PATIENT 16.5 SEC (12.2-14.7)
[2021-01-11 18:44] LABS: BILIRUBIN,URINE NEGATIVE (NEGATIVE); CLARITY,URINE CLEAR; COLOR,URINE YELLOW; GLUCOSE, URINE (UA) 3+ (NEGATIVE); KETONES,URINE NEGATIVE (NEGATIVE); LEUKOCYTE ESTERASE ,URINE 2+ (NEGATIVE); NITRITE,URINE NEGATIVE (NEGATIVE); PH,URINE 5.5 (5-9); PROTEIN,URINE NEGATIVE (NEGATIVE)
[2021-01-11 18:44] LABS: BUN/CREATININE RATIO 31; RBC MORPH NORMAL
[2021-01-11 18:44] LABS: ABG BASE EXCESS -2.7 MMOL/L (-2.5-2.5); ABG OXYGEN SATURATION 88 % (94-100); ABG PCO2 49 MMHG (35-45); ABG PO2 60 MMHG (79-93); ABG TCO2 24.6 MMOL/L (21.0-31.0)
[2021-01-11 18:45] LABS: ABG PH 7.29 (7.37-7.43); ALLENS TEST YES-POS; INSPIRED O2 4L; PATIENT TEMP 97.4; VENTILATOR NO
[2021-01-11 18:46] LABS: ALANINE AMINOTRANSFERASE 20 U/L (0-55); CREATINE KINASE 19 U/L (30-200); MAGNESIUM 2.1 MG/DL (1.6-2.4)
[2021-01-11 18:53] LABS: CREATINE KINASE MB 0.7 NG/ML (<6.6)
[2021-01-11 19:00] LABS: BACTERIA,URINE MODERATE /HPF; SQUAMOUS EPITHELIAL CELL,UR 0-2 /HPF
[2021-01-11 19:01] LABS: YEAST,URINE FEW /HPF
--- NOTE | 2021-01-11 19:03 | Diagnostic Imaging Report ---
EXAMINATION: Chest radiograph, portable AP view. DATE: 01/11/2021 6:58 PM INDICATION: 80-year-old male, hypoglycemia. Respiratory distress. COMPARISON: September 07, 2020. FINDINGS: Stable overall appearance of the cardiomediastinal silhouette. There is no identified pneumothorax. There is mild blunting of the right lateral costophrenic angle. There is nonspecific right basilar airspace consolidation. There are mildly prominent interstitial opacities bilaterally. IMPRESSION: 1. Nonspecific right lower lobe airspace consolidation which may relate to aspiration, pneumonia, other alveolar consolidative process, and/or atelectasis. 2. Blunting of the right lateral costophrenic angle which may indicate a small right pleural effusion. 3. Bilateral interstitial opacities. Differential considerations include interstitial edema, atypical infection, and/or chronic lung changes. Dictated by: Dictated on workstation # [id number]
[2021-01-11] MEDS ORDERED: CEFEPIME INJECTION 1,000 MG in WATER (STERILE) FOR INJECTION 10 ML IV ONE (19:15)
--- NOTE | 2021-01-11 19:34 | Diagnostic Imaging Report ---
PROCEDURE: CT head wo r/o stroke. TECHNIQUE: Multiple contiguous axial images were obtained through the brain without the use of intravenous contrast. Auto Exposure Controls were utilized during the CT exam to meet ALARA standards for radiation dose reduction. DATE: January 11, 2021. COMPARISON: CT head and cervical spine January 20, 2014. INDICATION: 80-year-old male, hypoxia. FINDINGS: There is an area of encephalomalacia in the anterior aspect of the left frontal lobe. There is proportional prominence of the ventricles and additional CSF spaces consistent with mild cerebral volume loss. There are mild probable findings of chronic small vessel ischemic disease. There is no mass effect or midline shift. There is no acute intracranial hemorrhage. There is no abnormal extra-axial fluid collection. The visualized portions of the paranasal sinuses, mastoid air cells and middle ears are well aerated. IMPRESSION: 1. No identified acute intracranial abnormality. 2. Mild cerebral volume loss. Changes of encephalomalacia in the left anterior frontal lobe, and probable mild findings of chronic small vessel ischemic disease. Called and faxed to Dr. Quesada/[facility] at 7:30 p.m. by [email or web address]. Dictated by: Dictated on workstation # [id number]
[2021-01-11] MEDS ORDERED: MEROPENEM 500 MG in WATER (STERILE) FOR INJECTION 10 ML IV ONE (19:45)
[2021-01-11 19:48] LABS: ABG BASE EXCESS -2.7 MMOL/L (-2.5-2.5); ABG OXYGEN SATURATION 99 % (94-100); ABG PCO2 45 MMHG (35-45); ABG PH 7.35 (7.37-7.43); ABG PO2 187 MMHG (79-93); ALLENS TEST YES-POS; INSPIRED O2 80%; PATIENT TEMP 36.4; VENTILATOR NO
[2021-01-11] MEDS: VANCOMYCIN INJECTION 1,000 MG in NS (IVPB) 250 ML IV SCH ×2 (20:06→20:40)
[2021-01-11 21:45] VITALS: BP 120/55
[2021-01-11] MEDS ORDERED: ACETAMINOPHEN 500 MG TAB (TYLENOL) PO PRN (22:15)
[2021-01-11] MEDS ORDERED: ONDANSETRON 4 MG/2 ML (SDV) Z0FRAN IV PRN (22:15)
[2021-01-11] MEDS ORDERED: NS IV 1000 ML 1,000 ML ONE (22:19)
[2021-01-11] MEDS: NS IV 1000 ML 1,000 ML IV SCH (22:27)
[2021-01-11] MEDS ORDERED: NS IV 1000 ML 250 ML IV PRN (22:30)
[2021-01-11 23:17] VITALS: BP 110/51
[2021-01-12] MEDS: MEROPENEM 500 MG/SWFI 10 ML IV PUSH IV SCH ×8 (01:46→20:49)
[2021-01-12] MEDS ORDERED: ESCI5TAB PO (02:11)
[2021-01-12] MEDS ORDERED: SOLI5TAB7 PO (02:11)
[2021-01-12 02:46] VITALS: BP 137/83
[2021-01-12 03:00] VITALS: BP 137/83
[2021-01-12] MEDS: NS IV 1000 ML 1,000 ML IV SCH ×4 (03:35→23:38)
[2021-01-12 05:55] LABS: BASOPHILS # (AUTO) 0.1 10^3/uL (0.0-0.1); BASOPHILS % (AUTO) 0 % (0-10); EOSINOPHILS # (AUTO) 0.2 10^3/uL (0.0-0.3); EOSINOPHILS % (AUTO) 2 % (0-10); HEMATOCRIT 40 % (40-54); HEMOGLOBIN 12.5 g/dL (13.3-17.7); LYMPHOCYTES # (AUTO) 0.3 10^3/uL (1.0-4.0); LYMPHOCYTES % (AUTO) 3 % (12-44); MEAN CORPUSCULAR HEMOGLOBIN 28 pg (25-34); MEAN CORPUSCULAR HGB CONC 31 g/dL (32-36); MEAN CORPUSCULAR VOLUME 91 fL (80-99); MEAN PLATELET VOLUME 10.1 fL (9.0-12.2); MONOCYTES % (AUTO) 8 % (0-12); NEUTROPHILS # (AUTO) 9.8 10^3/uL (1.8-7.8); NEUTROPHILS % (AUTO) 86 % (42-75); PLATELET COUNT 344 10^3/uL (130-400); WHITE BLOOD COUNT 11.5 10^3/uL (4.3-11.0)
[2021-01-12] MEDS: inSUlin ASPART (NovoLOG) 1 UNIT/0.01 ML (CHARGE PER UNIT) SC SCH ×4 (06:02→21:04)
[2021-01-12 06:08] LABS: ALBUMIN 3.4 GM/DL (3.2-4.5); POTASSIUM 4.4 MMOL/L (3.6-5.0)
[2021-01-12 06:09] LABS: CALCIUM 9.4 MG/DL (8.5-10.1)
[2021-01-12 06:12] LABS: BILIRUBIN,TOTAL 0.3 MG/DL (0.1-1.0)
[2021-01-12 06:14] LABS: CREATININE SERUM 0.96 MG/DL (0.60-1.30)
[2021-01-12 06:25] LABS: ABG BASE EXCESS -1.2 MMOL/L (-2.5-2.5); ABG OXYGEN SATURATION 99 % (94-100); ABG PCO2 35 MMHG (35-45); ABG PH 7.43 (7.37-7.43); ABG PO2 126 MMHG (79-93); ABG TCO2 23.8 MMOL/L (21.0-31.0)
[2021-01-12 06:26] LABS: ALLENS TEST YES-POS; INSPIRED O2 40%; PATIENT TEMP 36.2; VENTILATOR NO
--- NOTE | 2021-01-12 06:52 | History & Physical-Hospitalist ---
History of Present Illness HPI/Chief Complaint Chief complaint: Pneumonia History of present illness: This is a 80-year-old white male who was recently hospitalized resides at [facility] home who has had a significant decline recently who presented to the ER with fever and altered mental status found to have pneumonia and UTI. Currently IV fluids are infusing and he refuses to eat or drink and wants to be left alone. Sister and her are at the bedside and I did talk to her outside the room about the fact of his end- stage medical problems and now his refusal to eat and participate in his care or indications for hospice enrollment. I will have medical social worker visit with her tomorrow. I did initiate a few changes and discontinue telemetry will be maintained on DNR status. Source: patient, family, RN/MD, old records Exam Limitations: clinical condition Date Seen 01/12/21 Time Seen by a Provider: 11:00 Attending Physician Tyra Foley DO [facility] Referring Physician Date of Admission Jan 11, 2021 at 19:40 Home Medications & Allergies Home Medications Reviewed patient Home Medication Reconciliation performed by pharmacy medication reconciliations point of care technician and/or nursing. Patients Allergies have been reviewed. Allergies Allergies Coded Allergies No Known Drug Allergies (Unverified01/03/19) Past Nmcrcuw-Lpiumd-Jxrgom Hx Patient Social History Marrital Status: single Employed/Student: retired Tobacco Use?: No Smoking Status: Unknown if Ever Smoked Substance use?: No Alcohol Use?: No Pt feels they are or have been: Unable to obtain Immunizations Up To Date Date of Influenza Vaccine: Mar 31, 2018 Date of Pneumonia Vaccine: Mar 21, 2011 Seasonal Allergies Seasonal Allergies: No Current Status Advance Directives: Yes Advance Directive Location: Copy from prev record Communicates: Verbally Primary Language: Albanian Preferred Spoken Language: Albanian Is interpretation needed?: No Sensory deficits: Hearing impairment Implanted or Applied Medical D: None Past Medical History Surgeries: Orthopedic Pneumonia High Cholesterol, Hypertension Dementia Bladder Infection, Renal Failure Chronic Constipation Arthritis, Foot Drop Diabetes, Insulin dep Cataract Loss of Vision: Bilateral Hearing Impairment: Hard of Hearing, Bilateral Hearing Aide Blood Disorders: No Family Medical History Cardiovascular disease 19 MOTHER (CHF) Diabetes mellitus 19 MOTHER Prostate cancer 19 FATHER Heart Disease, Cancer, Diabetes, Hypertension Review of Systems Constitutional: see HPI, malaise, weakness Respiratory: dyspnea on exertion Physical Exam Physical Exam Vital Signs Vital Signs - First Documented 01/11/21 01/11/21 18:10 18:15 Temp 36.3 Pulse 84 Resp 23 B/P (MAP) 93/51 (65) Pulse Ox 88 O2 Delivery OxyMask O2 Flow Rate 10.00 FiO2 88 Capillary Refill : Height, Weight, BMI Height: 6'2.00" Weight: 324lbs. 3.0oz. 147.718607kv; 36.45 BMI Method:Stated General Appearance: No Apparent Distress, Chronically ill, Obese Eyes: Right Eye Normal Inspection, Right Eye PERRL HEENT: PERRL/EOMI, Normal ENT Inspection, Pharynx Normal, Moist Mucous Membranes Neck: Full Range of Motion, Normal Inspection, Non Tender Respiratory: Chest Non Tender, Lungs Clear, No Accessory Muscle Use, No Respiratory Distress, Decreased Breath Sounds Cardiovascular: Regular Rate, Rhythm, No Edema, No Gallop, No JVD, No Murmur, Normal Peripheral Pulses Gastrointestinal: Normal Bowel Sounds, No Organomegaly, No Pulsatile Mass, Non Tender, Soft Back: Normal Inspection, No CVA Tenderness, No Vertebral Tenderness Extremity: Normal Capillary Refill, Normal Inspection, Normal Range of Motion, Non Tender, No Calf Tenderness, No Pedal Edema Neurologic/Psychiatric: Alert, Oriented x3, No Motor/Sensory Deficits, Normal Mood/Affect Skin: Normal Color, Warm/Dry Lymphatic: No Adenopathy Results Results/Procedures Labs Laboratory Tests 01/11/21 18:14 01/12/21 05:45 Patient resulted labs reviewed. Assessment/Plan Admission Diagnosis Assessment: Severe sepsis but DNR managed on MedSur floor UTI Pneumonia Chronic kidney disease Plan: DC telemetry Continue IV fluids Poor prognosis Hospice at discharge Admission Status: Inpatient Order (span 2 midnights) Reason for Inpatient Admission: Severe sepsis Diagnosis/Problems Diagnosis/Problems (1) Severe sepsis Status: Acute (2) Pneumonia Status: Acute (3) Diabetes mellitus, type 2 Status: Chronic (4) Debility Status: Chronic (5) UTI (urinary tract infection) Status: Acute TYRA FOLEY DO Jan 12, 2021 06:52
[2021-01-12] MEDS: VANCOMYCIN 1250 MG/NS 250 ML IVPB IV SCH ×4 (07:57→20:50)
[2021-01-12 08:27] VITALS: BP 123/71
--- NOTE | 2021-01-12 08:35 | Diagnostic Imaging Report ---
INDICATION: Pneumonia. Compared 01/11/2021 FINDINGS: The heart is enlarged. Perihilar infiltrates or edema have improved. Vascular congestion decreased. No adverse development. IMPRESSION: Findings suggest improvements in sequelae of congestion with no adverse interval development. Dictated by: Dictated on workstation # [id number]
[2021-01-12 12:03] VITALS: BP 106/53
[2021-01-12] MEDS: ENOXAPARIN 40 MG/0.4 ML (LOVENOX) SYR SC SCH (13:29)
[2021-01-12 20:57] VITALS: BP 105/65
[2021-01-12 23:40] VITALS: BP 117/56
[2021-01-13] MEDS: MEROPENEM 500 MG/SWFI 10 ML IV PUSH IV SCH ×8 (02:00→20:21)
[2021-01-13 04:00] VITALS: BP 143/64
[2021-01-13 06:09] LABS: BASOPHILS # (AUTO) 0.1 10^3/uL (0.0-0.1); BASOPHILS % (AUTO) 1 % (0-10); EOSINOPHILS # (AUTO) 0.5 10^3/uL (0.0-0.3); EOSINOPHILS % (AUTO) 4 % (0-10); HEMATOCRIT 43 % (40-54); HEMOGLOBIN 12.6 g/dL (13.3-17.7); LYMPHOCYTES # (AUTO) 0.6 10^3/uL (1.0-4.0); LYMPHOCYTES % (AUTO) 6 % (12-44); MEAN CORPUSCULAR HEMOGLOBIN 28 pg (25-34); MEAN CORPUSCULAR HGB CONC 30 g/dL (32-36); MEAN CORPUSCULAR VOLUME 93 fL (80-99); MEAN PLATELET VOLUME 9.9 fL (9.0-12.2); MONOCYTES % (AUTO) 10 % (0-12); NEUTROPHILS % (AUTO) 79 % (42-75); PLATELET COUNT 343 10^3/uL (130-400); WHITE BLOOD COUNT 10.2 10^3/uL (4.3-11.0)
--- NOTE | 2021-01-13 06:18 | Progress Note - Hospitalist ---
Subjective HPI/CC On Admission Date Seen by Provider: Jan 13, 2021 Time Seen by Provider: 10:00 Chief complaint: Pneumonia History of present illness: This is a 80-year-old white male who was recently hospitalized resides at [facility] who has had a significant decline recently who presented to the ER with fever and altered mental status found to have pneumonia and UTI. Currently IV fluids are infusing and he refuses to eat or drink and wants to be left alone. Sister and her are at the bedside and I did talk to her outside the room about the fact of his end- stage medical problems and now his refusal to eat and participate in his care or indications for hospice enrollment. I will have social work job titles visit with her tomorrow. I did initiate a few changes and discontinue telemetry will be maintained on DNR status. Subjective/Events-last exam Pt doing a little better Sodium 153 changed IV fluids to half normal saline at 70. PT and OT will be ordered Overall about the same Needs hospice at [place] Review of Systems General: Fatigue, Malaise Focused Exam Lactate Level 01/11/21 18:24: Lactic Acid Level 1.67 Objective Exam Vital Signs Vital Signs Date Time Temp Pulse Resp B/P (MAP) Pulse Ox O2 Delivery O2 Flow Rate FiO2 01/14/21 00:20 36.5 80 18 109/66 (80) 97 High Flow N/C 5.00 01/12/21 08:00 40 Capillary Refill : General Appearance: No Apparent Distress, WD/WN, Chronically ill Respiratory: No Accessory Muscle Use, No Respiratory Distress, Decreased Breath Sounds Cardiovascular: Regular Rate, Rhythm Neurologic/Psychiatric: Alert, Oriented x3, Depressed Affect Results/Procedures Lab Laboratory Tests 01/13/21 06:00 Patient resulted labs reviewed. Assessment/Plan Assessment and Plan Assess & Plan/Chief Complaint Assessment: Severe sepsis but DNR managed on MedSurg floor UTI Pneumonia Chronic kidney disease Hypernatremia Plan: DC telemetry Continue IV fluids Poor prognosis Hospice at discharge 01/13/2021: Change IV fluids to one half normal saline Poor prognosis Diagnosis/Problems Diagnosis/Problems (1) Severe sepsis Status: Acute (2) Pneumonia Status: Acute (3) Diabetes mellitus, type 2 Status: Chronic (4) Debility Status: Chronic (5) UTI (urinary tract infection) Status: Acute MINNIE SANDERS DO Jan 13, 2021 06:18
[2021-01-13] MEDS: inSUlin ASPART (NovoLOG) 1 UNIT/0.01 ML (CHARGE PER UNIT) SC SCH ×4 (06:24→20:20)
[2021-01-13 06:41] LABS: ALBUMIN 3.3 GM/DL (3.2-4.5); BILIRUBIN,TOTAL 0.2 MG/DL (0.1-1.0); CALCIUM 9.5 MG/DL (8.5-10.1); CREATININE SERUM 0.82 MG/DL (0.60-1.30); POTASSIUM 4.2 MMOL/L (3.6-5.0); TOTAL PROTEIN 7.1 GM/DL (6.4-8.2)
[2021-01-13] MEDS ORDERED: TROUGH ORDER-PHARMACY XX NR (07:00)
[2021-01-13] MEDS: NS IV 1000 ML 1,000 ML IV SCH ×2 (07:39→08:40)
[2021-01-13 08:03] VITALS: BP 128/58
[2021-01-13] MEDS: VANCOMYCIN 1250 MG/NS 250 ML IVPB IV SCH ×2 (08:39)
[2021-01-13] MEDS ORDERED: ENAL20TA16 PO (09:47)
[2021-01-13] MEDS ORDERED: BENZ1LOZ61 MM (09:47)
[2021-01-13] MEDS ORDERED: APIX5TAB PO (09:47)
[2021-01-13] MEDS ORDERED: 1/2 NS IV SOLUTION 1,000 ML IV ONE (10:01)
[2021-01-13] MEDS: 1/2 NS IV SOLUTION 1,000 ML IV SCH (10:17)
[2021-01-13 11:23] VITALS: BP 125/60
--- NOTE | 2021-01-13 12:20 | Occupational Therapy Eval ---
OT Evaluation-General/PLF Medical Diagnosis Admission Date Jan 11, 2021 at 19:40 Medical Diagnosis: septic shock, ac resp fail, hypoxia, pneumonia Onset Date: Jan 24, 2021 Therapy Diagnosis Therapy Diagnosis: weakness Height/Weight Height (Feet): 6 Height (Inches): 2.00 Weight (Pounds): 324 Weight (Ounces): 3.0 Precautions Precautions/Isolations: Fall Prevention, Standard Precautions Referral Physician: Alaina Referral Reason: Evaluation/Treatment Medical History Pertinent Medical History: Arthritis, DM, Dementia, HTN Additional Medical History renal failure, foot drop, cataract, [employer] [place] (bilateral hearing aides) Current History ED due to fever and AMS, found to have UTI and pneumonia Social History Home: Residential ADL-Prior Level of Function SCALE: Activities may be completed with or without assistive devices. 3-Xfhiikumhk-wbzdswx completes the activity by him/herself with no assistance from a helper. 5-Set-up or Clean-up Assistance-helper sets up or cleans up; patient completes activity. [place] assists only prior to or following the activity. 4-Supervision or Touching Assistance-helper provides verbal cues and/or touching/steadying and/or contact guard assistance as patient completes activity. Assistance may be provided throughout the activity or intermittently. 3-Partial/Moderate Assistance-helper does LESS THAN HALF the effort. [place] lifts, holds or supports trunk or limbs, but provides less than half the effort. 2-Substantial/Maximal Assistance-helper does MORE THAN HALF the effort. [place] lifts or holds trunk or limbs and provides more than half the effort. 1-Htcilgcoy-pweefj does ALL the effort. Patient does none of the effort to complete the activity. Or, the assistance of 2 or more helpers is required for the patient to complete the activity. If activity was not attempted, code reason: 7-Patient Refused. 9-Not Applicable-not attempted and the patient did not perform the activity before the current illness, exacerbation or injury. 10-Not Attempted due to Environmental Limitations-(lack of equipment, weather restraints, etc.). 88-Not Attempted due to Medical Conditions or Safety Concerns. ADL PLOF Comments Pt indicates assistance with all ADLs at PLOF, w/c for functional mobility. Self Care: Independent Functional Cognition: Needed Some Help OT Current Status Subjective Pt laying in bed, agreeable to OT evaluation. [employer] [place], but able to understand therapist after several attempts. Mental Status/Objective Attachments: Garrett Catheter, IV Current Upper Extremity ROM decreased, BUE shoulder flexion to approx 80 degrees Upper Extremity Strength grossly 3/5 ADL-Treatment Eating (QC): 6 (Pt reports IND with drink.) Toileting Hygiene (QC): 1 (total assist to wash buttocks after incontinent of bowels.) Other Treatments Pt laying in bed, transferred supine to sit EOB. Pt attempted to stand, but unsuccessful after multiple attempts and max A x2. Pt completed UE exercises at EOB in order to increase strength and activity tolerance, completing x10 reps each of the following: shoulder flexion, elbow flexion/extension. Pt tolerated sitting EOB x10 mins. Pt returned supine, noticed slightly incontinent of bowels. Pt rolled side to side in order for hygiene to be complete and linen michael nged. Max A rolling side to side. Post tx, pt laying in bed, call light in reach and all need met. Education OT Patient Education: Correct positioning, Energy conservation, Exercise program, Modified ADL techniques, Progress toward Goal/Update tx plan, Purpose of tx/functional activities, Rehab process Teaching Recipient: Patient Teaching Methods: Discussion OT Shipwright Helper Goals Shipwright Helper Goals Time Frame: Jan 24, 2021 Eating (QC): 5 Oral Hygiene (QC): 5 Toileting Hygiene (QC): 2 Upper Body Dressing (QC): 4 1=Demonstrate adherence to instructed precautions during ADL tasks. 2=Patient will verbalize/demonstrate understanding of assistive devices/modifications for ADL. 3=Patient will improve strength/tolerance for activity to enable patient to perform ADL's. OT Education/Plan Problem List/Assessment Assessment: Decreased Activ Tolerance, Decreased UE Strength, Dependent Transfers, Impaired Bed Mobility, Impaired Funct Balance, Impaired I ADL's, Impaired Self-Care Skills Discharge Recommendations Plan/Recommendations: Continue POC Treatment Plan/Plan of Care Patient would benefit from OT for education, treatment and training to promote independence in ADL's, mobility, safety and/or upper extremity function for ADL's. Plan of Care: ADL Retraining, Functional Mobility, UE Funct Exercise/Act Treatment Duration: Jan 24, 2021 Frequency: 5 times per week Estimated Hrs Per Day: .25 hour per day Time/GCodes Start Time: 11:30 Stop Time: 11:50 Total Time Billed (hr/min): 20 Billed Treatment Time 1, MIRELLA LAZCANO OT Jan 13, 2021 12:20
--- NOTE | 2021-01-13 12:21 | Physical Therapy Evaluation ---
PT Evaluation-General Medical Diagnosis Admission Date Jan 11, 2021 at 19:40 Medical Diagnosis: AMS, pneumonia, UTI Onset Date: Jan 11, 2021 Therapy Diagnosis Therapy Diagnosis: impaired mobility, strength, endurance Height/Weight Height (Feet): 6 Height (Inches): 2.00 Weight (Pounds): 324 Weight (Ounces): 3.0 Precautions Precautions/Isolations: Fall Prevention, Standard Precautions Referral Physician: Tyra Foley DO Medical History Pertinent Medical History: Arthritis, DM, Dementia Additional Medical History Past Medical History Surgeries: Orthopedic Pneumonia High Cholesterol, Hypertension Dementia Bladder Infection, Renal Failure Chronic Constipation Arthritis, Foot Drop Diabetes, Insulin dep Cataract Loss of Vision: Bilateral Hearing Impairment: Hard of Hearing, Bilateral Hearing Aide Reviewed History: Yes Social History Home: [facility] Prior Prior Level of Function SCALE: Activities may be completed with or without assistive devices. 9-Sglpvissyj-yxefkjm completes the activity by him/herself with no assistance from a helper. 5-Set-up or Clean-up Assistance-helper sets up or cleans up; patient completes activity. [place] assists only prior to or following the activity. 4-Supervision or Touching Assistance-helper provides verbal cues and/or touc mary/steadying and/or contact guard assistance as patient completes activity. Assistance may be provided throughout the activity or intermittently. 3-Partial/Moderate Assistance-helper does LESS THAN HALF the effort. [place] lifts, holds or supports trunk or limbs, but provides less than half the effort. 2-Substantial/Maximal Assistance-helper does MORE THAN HALF the effort. [place] lifts or holds trunk or limbs and provides more than half the effort. 9-Ohbgjmghh-qgckro does ALL the effort. Patient does none of the effort to complete the activity. Or, the assistance of 2 or more helpers is required for the patient to complete the activity. If activity was not attempted, code reason: 7-Patient Refused. 9-Not Applicable-not attempted and the patient did not perform the activity before the current illness, exacerbation or injury. 10-Not Attempted due to Environmental Limitations-(lack of equipment, weather restraints, etc.). 88-Not Attempted due to Medical Conditions or Safety Concerns. Bed Mobility: 3 Transfers (B,C,W/C): 1 Patient states he has not been ambulating and has been wheelchair bound. PT Evaluation-Current Subjective Patient in bed pre tx, agrees to PT, has no complaints of pain. Pt/Family Goals "to get out of here" Objective Patient Orientation: Person, Place Attachments: Oxygen, Garrett Catheter, IV ROM/Strength ROM Lower Extremities limited Strength Lower Extremities LLE (hip flexion 2/5, knee flexion 3/5, knee extension 3/5, dorsiflexion 0/5), RLE (hip flexion 2/5, knee flexion 3/5, knee extension 3/5, dorsiflexion 0/5) Sensory Hearing: Impaired Transfers Roll Left to Right (QC): 2 Sit to Lying (QC): 1 Lying to Sitting/Side of Bed(Q: 1 Sit to Stand (QC): 1 attempted to stand with an elevated bed and the use of 2 therapists and a rolling walker but he didn't appear to be able to bear much if any weight through his legs. A sit to stand machine will have to be used in the future. Patient was able to sit on the side of the bed for about 10 min and perform some LE exercises. Patient also practiced rolling from side to side to get cleaned up from a BM (max assist for rolling) Balance Sitting Static: Fair Sitting Dynamic: Fair Treatment seated BLE exercises x20 (LAQ, hip flexion, patient could not perform ankle pumps) Assessment/Needs Patient in bed post tx with nurse call, phone, tray, all needs met. Patient has impaired mobility, strength, endurance. He cannot stand at this time, could probably use a sit to stand machine for transfers. Rehab Potential: Guarded PT Mover Helper Goals Senior Care Goals PT Mover Helper Goals Time Frame: Jan 20, 2021 Roll Left & Right (QC): 3 Sit to Lying (QC): 3 Lying-Sitting on Side/Bed(QC): 3 Sit to Stand (QC): 1 Chair/Swg-wg-Hmxjy Xfer(QC): 1 PT Plan Problem List Problem List: Activity Tolerance, Functional Strength, Safety, Balance, Gait, Transfer, Bed Mobility, ROM Treatment/Plan Treatment Plan: Continue Plan of Care Treatment Plan: Bed Mobility, Education, Functional Activity [place], Functional Strength, Gait, Safety, Therapeutic Exercise, Transfers Treatment Duration: Jan 20, 2021 Frequency: 6 times per week Estimated Hrs Per Day: .25 hour per day Patient and/or Family Agrees t: Yes Safety Risks/Education Patient Education: Correct Positioning, Safety Issues Teaching Recipient: Patient Teaching Methods: Demonstration, Discussion Response to Teaching: Reinforcement Needed Discharge Recommendations Plan Patient will perform bed mobility and transfer training, balance and endurance training, functional strengthening, and education, to improve functional mobility and independence at home. Therapy Discharge Recommendati: 24 Hour Supervision Time/GCodes Time In: 1130 Time Out: 1150 Total Billed Treatment Time: 20 Total Billed Treatment 1 visit QUINCY 20' HOMER PARRA PT Jan 13, 2021 12:21
[2021-01-13] MEDS: ENOXAPARIN 40 MG/0.4 ML (LOVENOX) SYR SC SCH (14:08)
[2021-01-13 16:00] VITALS: BP 136/62
[2021-01-13 19:46] VITALS: BP 147/69
[2021-01-13] MEDS: VANCOMYCIN INJECTION 1,000 MG in NS (IVPB) 250 ML IV SCH (20:21)
[2021-01-14 00:20] VITALS: BP 109/66
[2021-01-14] MEDS: 1/2 NS IV SOLUTION 1,000 ML IV SCH (01:35)
[2021-01-14] MEDS: MEROPENEM 500 MG/SWFI 10 ML IV PUSH IV SCH ×4 (01:38→09:31)
[2021-01-14] MEDS ORDERED: MILK OF MAGNESIA 400 MG/5 ML 30 ML UDC PO PRN (04:45)
[2021-01-14] MEDS ORDERED: NON-FORMULARY MEDICATION 1 EA EA (Menthol (Biofreeze) 1 APPLIC) TP PRN (04:45)
[2021-01-14] MEDS ORDERED: polyethylene glycoL POWDER 17 GM (MIRALAX) PACK PO PRN (04:45)
[2021-01-14] MEDS ORDERED: ACETAMINOPHEN 325 MG TABLET PO PRN (04:45)
[2021-01-14] MEDS ORDERED: LOPERAMIDE 2 MG (IMODIUM) TABLET PO PRN (04:45)
[2021-01-14 05:00] VITALS: BP 150/75
--- NOTE | 2021-01-14 05:28 | Progress Note - Hospitalist ---
Subjective HPI/CC On Admission Date Seen by Provider: Jan 14, 2021 Chief complaint: Pneumonia History of present illness: This is a 80-year-old white male who was recently hospitalized resides at [facility] longterm who has had a significant decline recently who presented to the ER with fever and altered mental status found to have pneumonia and UTI. Currently IV fluids are infusing and he refuses to eat or drink and wants to be left alone. Sister and her are at the bedside and I did talk to her outside the room about the fact of his end- stage medical problems and now his refusal to eat and participate in his care or indications for hospice enrollment. I will have social services analyst visit with her tomorrow. I did initiate a few changes and discontinue telemetry will be maintained on DNR status. Focused Exam Lactate Level 01/11/21 18:24: Lactic Acid Level 1.67 Objective Exam Vital Signs Vital Signs Date Time Temp Pulse Resp B/P (MAP) Pulse Ox O2 Delivery O2 Flow Rate FiO2 01/14/21 08:00 36.5 72 20 139/76 (97) 96 High Flow N/C 5.00 01/12/21 08:00 40 Capillary Refill : Results/Procedures Lab Laboratory Tests 01/14/21 05:30 Patient resulted labs reviewed. Assessment/Plan Assessment and Plan Assess & Plan/Chief Complaint Assessment: Severe sepsis but DNR managed on MedSur floor UTI Pneumonia Chronic kidney disease Hypernatremia Plan: DC telemetry Continue IV fluids Poor prognosis Hospice at discharge 01/13/2021: Change IV fluids to one half normal saline Poor prognosis Diagnosis/Problems Diagnosis/Problems (1) Severe sepsis Status: Acute (2) Pneumonia Status: Acute (3) Diabetes mellitus, type 2 Status: Chronic (4) Debility Status: Chronic (5) UTI (urinary tract infection) Status: Acute MINNIE SANDERS DO Jan 14, 2021 05:28
[2021-01-14 05:52] LABS: BASOPHILS # (AUTO) 0.1 10^3/uL (0.0-0.1); BASOPHILS % (AUTO) 1 % (0-10); EOSINOPHILS # (AUTO) 0.6 10^3/uL (0.0-0.3); EOSINOPHILS % (AUTO) 7 % (0-10); HEMATOCRIT 40 % (40-54); HEMOGLOBIN 12.1 g/dL (13.3-17.7); LYMPHOCYTES # (AUTO) 0.7 10^3/uL (1.0-4.0); LYMPHOCYTES % (AUTO) 7 % (12-44); MEAN CORPUSCULAR HEMOGLOBIN 28 pg (25-34); MEAN CORPUSCULAR HGB CONC 30 g/dL (32-36); MEAN CORPUSCULAR VOLUME 94 fL (80-99); MEAN PLATELET VOLUME 10.1 fL (9.0-12.2); MONOCYTES # (AUTO) 0.8 10^3/uL (0.0-1.0); MONOCYTES % (AUTO) 8 % (0-12); NEUTROPHILS % (AUTO) 74 % (42-75); PLATELET COUNT 295 10^3/uL (130-400); WHITE BLOOD COUNT 9.4 10^3/uL (4.3-11.0)
[2021-01-14] MEDS ORDERED: TROSPIUM 20 MG (SANCTURA) TAB PO SCH (06:00)
[2021-01-14] MEDS ORDERED: metFORMIN XR 500 MG (GLUCOPHAGE XR) TAB PO SCH (06:00)
[2021-01-14] MEDS ORDERED: DOCUSATE SODIUM 100 MG (COLACE) CAP PO SCH (06:00)
[2021-01-14 06:03] LABS: ALBUMIN 3.3 GM/DL (3.2-4.5); POTASSIUM 4.5 MMOL/L (3.6-5.0)
[2021-01-14 06:05] LABS: CALCIUM 9.6 MG/DL (8.5-10.1)
[2021-01-14 06:06] LABS: TOTAL PROTEIN 6.7 GM/DL (6.4-8.2)
[2021-01-14 06:08] LABS: BILIRUBIN,TOTAL 0.2 MG/DL (0.1-1.0)
[2021-01-14 06:09] LABS: CREATININE SERUM 0.8 MG/DL (0.60-1.30)
[2021-01-14] MEDS: inSUlin ASPART (NovoLOG) 1 UNIT/0.01 ML (CHARGE PER UNIT) SC SCH (06:23)
[2021-01-14] MEDS: GABAPENTIN 300 MG (NEURONTIN) CAP PO SCH ×2 (06:25→09:31)
[2021-01-14] MEDS ORDERED: ARTIFICAL TEARS 0.4 ML UNIT DOSE (REFRESH PLUS) OU PRN (06:30)
[2021-01-14] MEDS ORDERED: CHLORASEPTIC LOZENGE MM PRN (06:30)
[2021-01-14] MEDS ORDERED: inSUlin ASPART (NovoLOG) 1 UNIT/0.01 ML (CHARGE PER UNIT) SC SCH (07:00)
[2021-01-14 08:00] VITALS: BP 139/76
[2021-01-14] MEDS ORDERED: ASPIRIN E.C. 81 MG (ECOTRIN) TAB PO SCH (09:00)
[2021-01-14] MEDS ORDERED: NON-FORMULARY MEDICATION 1 EA EA (Mirabegron (Myrbetriq) 50 MG) PO SCH (09:00)
[2021-01-14] MEDS ORDERED: ACETAMINOPHEN 325 MG TABLET PO SCH (09:00)
[2021-01-14] MEDS ORDERED: meTOprolol TARTRATE 25 MG (LOPRESSOR) TABLET PO SCH (09:00)
[2021-01-14] MEDS ORDERED: ENALAPRIL 10 MG (VASOTEC) TAB PO SCH (09:00)
[2021-01-14] MEDS ORDERED: APIXABAN 5 MG (ELIQUIS) TABLET PO SCH (09:00)
[2021-01-14] MEDS ORDERED: CEFD300C3 PO (09:00)
[2021-01-14] MEDS ORDERED: FINASTERIDE (PROSCAR) 5 MG TAB PO SCH (09:00)
[2021-01-14] MEDS ORDERED: LORATADINE (CLARITIN) 10 MG TAB PO SCH (09:00)
[2021-01-14] MEDS ORDERED: ARTIFICAL TEARS 0.4 ML UNIT DOSE (REFRESH PLUS) OU SCH (09:00)
[2021-01-14] MEDS ORDERED: NON-FORMULARY MEDICATION 1 EA EA (Dapagliflozin Propanediol (Farxiga) 10 MG) PO SCH (09:00)
[2021-01-14] MEDS ORDERED: amLODIPine 10 MG (NORVASC) TAB PO SCH (09:00)
--- NOTE | 2021-01-14 09:02 | Discharge Inst-Skilled Nursing ---
Discharge Inst-Skilled NF Reconcile Patient Problems Problems Reviewed?: Yes Chief Complaint Chief complaint: Pneumonia History of present illness: This is a 80-year-old white male who was recently hospitalized resides at [facility] who has had a significant decline recently who presented to the ER with fever and altered mental status found to have pneumonia and UTI. Currently IV fluids are infusing and he refuses to eat or drink and wants to be left alone. Sister and her are at the bedside and I did talk to her outside the room about the fact of his end- stage medical problems and now his refusal to eat and participate in his care or indications for hospice enrollment. I will have social services director visit with her tomorrow. I did initiate a few changes and discontinue telemetry will be maint ained on DNR status. Patient Instructions Patient Problems: Debility UTI Goal: Return to independence Consult/Follow Up/Orders Follow Up Appt.: [facility] rounds Skilled NF Admit to: [facility] Certification (SNF) I certify that SNF services are required to be given on an inpatient basis because of the above named patient's need for intermediate care on a continui ng basis for the conditions(s) for which he/she was receiving inpatient hospital services prior to his/her transfer to the SNF. Halfway Facility Order: Nursing Services, Government Affairs Director-Evaluate & Treat, Physical Therapy-Evaluate & Treat Oxygen Delivery Method: High Flow N/C Resuscitation Status: Do Not Resuscitate Type of Care: Comfort Measures, Pallative Care, Hospice Care (Home) New & Resume Previous Orders New Medications: Cefdinir (Cefdinir) 300 Mg Capsule 300 MG PO BID for 6 Days, CAP Continued Medications: Acetaminophen (Tylenol) 325 Mg Tablet 650 MG PO Q4H PRN for PAIN-MILD (1-4) OR TEMPATURE, TAB TAKES 2 (325MG) TABLETS Acetaminophen (Tylenol) 325 Mg Tablet 650 MG PO DAILY, TAB TAKES 2 (325MG) TABS Albuterol Sulfate (Albuterol Sulfate) 2.5 Mg/3 Ml Vial.neb 3 ML NEB Q4H PRN for SHORTNESS OF BREATH, EA Amlodipine Besylate (Amlodipine Besylate) 10 Mg Tablet 10 MG PO DAILY, TAB Apixaban (Eliquis) 5 Mg Tablet 5 MG PO BID, TAB Aspirin (Aspirin EC) 81 Mg Tablet.dr 81 MG PO DAILY, TAB Atorvastatin Calcium (Atorvastatin Calcium) 10 Mg Tablet 10 MG PO 1600, TAB Benzocaine/Menthol (Cepacol Sore Throat Lozenge) 1 Each Lozenge 1 EACH MM PRN PRN for COUGH, LOZENGE Carboxymethylcellulose Sodium (Artificial Tears) 15 Ml Drops 1 DROP OU BID, DROPS Cetirizine HCl (Cetirizine HCl) 10 Mg Tablet 10 MG PO DAILY, TAB Dapagliflozin Propanediol (Farxiga) 10 Mg Tablet 10 MG PO DAILY, TAB Docusate Sodium (Colace) 100 Mg Capsule 100 MG PO 0600,1400, CAP Enalapril Maleate (Enalapril Maleate) 20 Mg Tablet 20 MG PO BID, TAB HOLD IF BP <80/50 OR >180/110 AND/OR BP <50 OR >110 Escitalopram Oxalate (Lexapro) 5 Mg Tablet 5 MG PO DAILY, TAB Finasteride (Finasteride) 5 Mg Tablet 5 MG PO DAILY, TAB Gabapentin (Neurontin) 300 Mg Capsule 300 MG PO 0600,1000,1400, CAP Insulin Detemir (Levemir Flextouch) 100 Unit/1 Ml Insuln.pen 33 UNITS SC DAILY, EA Insulin Lispro (Humalog) 100 Unit/1 Ml Vial 22 UNITS SC AC, EA Loperamide HCl (Loperamide) 2 Mg Capsule PO UD PRN for LOOSE STOOLS, CAP TAKE 2 CAPSULES AFTER FIRST LOOSE STOOL THEN TAKE 1 CAPSULE AFTER EACH SUBSEUENT LOOSE STOOL. MAX 4 CAPS IN 24 HOURS Magnesium Hydroxide (Milk of Magnesia) 400 Mg/5 Ml Oral.susp 30 ML PO DAILY PRN for CONSTIPATION-7TH LINE, ML Menthol (Biofreeze) 118 Ml Gel..ml. 1 APPLIC TP Q6H PRN for SHOULDER PAIN, TUBE Metformin HCl (Metformin HCl ER) 500 Mg Tab.er.24h 1000 MG PO 0600,1400, TAB TAKES 2 (500MG) TABS Metoprolol Tartrate (Metoprolol Tartrate) 25 Mg Tablet 25 MG PO BID, TAB HOLD IF SBP <90, PULSE <60 ON AM DOSE Mirabegron (Myrbetriq) 50 Mg Tab.er.24h 50 MG PO DAILY, TAB Polyethylene Glycol 3350 (Miralax) 17 Gm Powd.pack 17 GM PO Q12H PRN for CONSTIPATION-2ND LINE, EACH Propylene Glycol (Systane Balance) 10 Ml Drops 1 DROP OU Q4H PRN for DRY EYES, DROPS Solifenacin Succinate (Solifenacin Succinate) 5 Mg Tablet 5 MG PO DAILY, TAB Tamsulosin HCl (Flomax) 0.4 Mg Cap 0.4 MG PO 1700, CAP Tyra Foley Jan 14, 2021 09:00 TYRA FOLEY DO Jan 14, 2021 09:02
--- NOTE | 2021-01-14 09:03 | Discharge Summary ---
Discharge Summary Hospital Course Was the Problem List Reviewed?: Yes Problems/Dx: (1) Severe sepsis Status: Acute (2) Pneumonia Status: Acute (3) Diabetes mellitus, type 2 Status: Chronic (4) Debility Status: Chronic (5) UTI (urinary tract infection) Status: Acute Hospital Course Date of Admission: Jan 11, 2021 at 19:40 Admission Diagnosis : Family Physician/Provider: Kylie Stevenson Date of Discharge: 01/14/21 Discharge Diagnosis: Severe sepsis, UTI, Hassan catheter maintained, severe debility, bedridden status Hospital Course: Hospital course: Pt had an uneventful hospital course after he was admitted for severe sepsis with UTI and pneumonia. Pt stabilized and remained a DNR. Pt had become very disabled and updated sister who was durable power of wafer production lead worker. He was assessed to be ready for discharge, urine culture reviewed, Omnicef started, and Pt was deemed stable for skilled care at [place], but overall prognosis remains very poor and in my opinion he has less than six months to live. We will keep the hassan in due to urinary retention and will DC that at the group home in a few days. Labs and Pending Lab Test: Laboratory Tests 01/13/21 11:23: Glucometer 171H 01/13/21 16:00: Glucometer 187H 01/13/21 20:04: Glucometer 227H 01/14/21 05:30: White Blood Count 9.4, Red Blood Count 4.30, Hemoglobin 12.1L, Hematocrit 40, Mean Corpuscular Volume 94, Mean Corpuscular Hemoglobin 28, Mean Corpuscular Hemoglobin Concent 30L, Red Cell Distribution Width 14.7H, Platelet Count 295, Mean Platelet Volume 10.1, Immature Granulocyte % (Auto) 3, Neutrophils (%) (Auto) 74, Lymphocytes (%) (Auto) 7L, Monocytes (%) (Auto) 8, Eosinophils (%) (Auto) 7, Basophils (%) (Auto) 1, Neutrophils # (Auto) 7.0, Lymphocytes # (Auto) 0.7L, Monocytes # (Auto) 0.8, Eosinophils # (Auto) 0.6H, Basophils # (Auto) 0.1, Immature Granulocyte # (Auto) 0.3H, Sodium Level 149H, Potassium Level 4.5, Chloride Level 115H, Carbon Dioxide Level 17L, Anion Gap 17H, Blood Urea Nitrogen 17, Creatinine 0.80, Estimat Glomerular Filtration Rate 93, BUN/Creatinine Ratio 21, Glucose Level 188H, Calcium Level 9.6, Corrected Calcium 10.2H, Total Bilirubin 0.2, Aspartate Amino Transf (AST/SGOT) 10, Alanine Aminotransferase (ALT/SGPT) 16, Alkaline Phosphatase 64, Total Protein 6.7, Albumin 3.3 Microbiology 01/11/21 Urine Culture - Final, Complete Proteus mirabilis Mixed Bacterial Keri 01/11/21 Blood Culture - Preliminary, Resulted No growth Home Meds Active Cefdinir 300 Mg Capsule 300 Mg PO BID 6 Days Reported Cepacol Sore Throat Lozenge (Benzocaine/Menthol) 1 Each Lozenge 1 Each MM PRN PRN Enalapril Maleate 20 Mg Tablet 20 Mg PO BID HOLD IF BP <80/50 OR >180/110 AND/OR BP <50 OR >110 Eliquis (Apixaban) 5 Mg Tablet 5 Mg PO BID Solifenacin Succinate 5 Mg Tablet 5 Mg PO DAILY Lexapro (Escitalopram Oxalate) 5 Mg Tablet 5 Mg PO DAILY Systane Balance (Propylene Glycol) 10 Ml Drops 1 Drop OU Q4H PRN Albuterol Sulfate 2.5 Mg/3 Ml Vial.neb 3 Ml NEB Q4H PRN Neurontin (Gabapentin) 300 Mg Capsule 300 Mg PO 0600,1000,1400 Metoprolol Tartrate 25 Mg Tablet 25 Mg PO BID HOLD IF SBP <90, PULSE <60 ON AM DOSE Metformin HCl ER (Metformin HCl) 500 Mg Tab.er.24h 1,000 Mg PO 0600,1400 TAKES 2 (500MG) TABS Farxiga (Dapagliflozin Propanediol) 10 Mg Tablet 10 Mg PO DAILY Cetirizine HCl 10 Mg Tablet 10 Mg PO DAILY Amlodipine Besylate 10 Mg Tablet 10 Mg PO DAILY Artificial Tears (Carboxymethylcellulose Sodium) 15 Ml Drops 1 Drop OU BID Tylenol (Acetaminophen) 325 Mg Tablet 650 Mg PO DAILY TAKES 2 (325MG) TABS Finasteride 5 Mg Tablet 5 Mg PO DAILY Myrbetriq (Mirabegron) 50 Mg Tab.er.24h 50 Mg PO DAILY Miralax (Polyethylene Glycol 3350) 17 Gm Powd.pack 17 Gm PO Q12H PRN Milk of Magnesia (Magnesium Hydroxide) 400 Mg/5 Ml Oral.susp 30 Ml PO DAILY PRN Loperamide (Loperamide HCl) 2 Mg Capsule PO UD PRN TAKE 2 CAPSULES AFTER FIRST LOOSE STOOL THEN TAKE 1 CAPSULE AFTER EACH SUBSEUENT LOOSE STOOL. MAX 4 CAPS IN 24 HOURS Atorvastatin Calcium 10 Mg Tablet 10 Mg PO 1600 Levemir Flextouch (Insulin Detemir) 100 Unit/1 Ml Insuln.pen 33 Units SC DAILY Humalog (Insulin Lispro) 100 Unit/1 Ml Vial 22 Units SC AC Flomax (Tamsulosin HCl) 0.4 Mg Cap 0.4 Mg PO 1700 Colace (Docusate Sodium) 100 Mg Capsule 100 Mg PO 0600,1400 Tylenol (Acetaminophen) 325 Mg Tablet 650 Mg PO Q4H PRN TAKES 2 (325MG) TABLETS Biofreeze (Menthol) 118 Ml Gel..ml. 1 Applic TP Q6H PRN Aspirin EC (Aspirin) 81 Mg Tablet.dr 81 Mg PO DAILY Assessment/Pt Instructions NH rounds [facility] Discharge Planning: <30 minutes discharge planning Discharge Instructions Discharge Diet: No Restrictions Activity as Tolerated: Yes Discharge Physical Examination Vital Signs Vital Signs Date Time Temp Pulse Resp B/P (MAP) Pulse Ox O2 Delivery O2 Flow Rate FiO2 01/14/21 08:00 36.5 72 20 139/76 (97) 96 High Flow N/C 5.00 01/12/21 08:00 40 General Appearance: No Apparent Distress, WD/WN Respiratory: Lungs Clear, Normal Breath Sounds, Decreased Breath Sounds Neurologic/Psychiatric: Alert, Oriented x3 Allergies: Coded Allergies: No Known Drug Allergies (Unverified , 01/03/19) Discharge Summary Date of Admission Jan 11, 2021 at 19:40 Date of Discharge Discharge Date: Jan 14, 2021 Admission Diagnosis Assessment: Severe sepsis but DNR managed on MedSur floor UTI Pneumonia Chronic kidney disease Plan: DC telemetry Continue IV fluids Poor prognosis Hospice at discharge Comfort Measures/ End of Life Care: Comfort Measures, Pallative Care, Hospice Care (Home) Discharge Diagnosis Assessment: Severe sepsis but DNR managed on MedSur floor UTI Pneumonia Chronic kidney disease Hypernatremia Plan: DC telemetry Continue IV fluids Poor prognosis Hospice at discharge 01/13/2021: Change IV fluids to one half normal saline Poor prognosis (1) Severe sepsis Status: Acute (2) Pneumonia Status: Acute (3) Diabetes mellitus, type 2 Status: Chronic (4) Debility Status: Chronic (5) UTI (urinary tract infection) Status: Acute MINNIE SANDERS DO Jan 14, 2021 09:03
[2021-01-14] MEDS: VANCOMYCIN INJECTION 1,000 MG in NS (IVPB) 250 ML IV SCH (09:21)
[2021-01-14] MEDS ORDERED: FUROSEMIDE 40 MG/4 ML INJ (LASIX) IVP ONE (09:30)
[2021-01-14 10:24] VITALS: BP 139/76
[2021-01-14 10:30] VITALS: BP 139/76
[2021-01-14] MEDS ORDERED: ATORVASTATIN 10 MG TABLET PO SCH (16:00)
[2021-01-14] MEDS ORDERED: TAMSULOSIN 0.4 MG (FLOMAX) CAP PO SCH (17:00)
[2021-01-15] MEDS ORDERED: TROUGH ORDER-PHARMACY XX NR (07:00)
== END 2021-01-14 10:35 | DRG 871 ==
LOC: EDUNIT# 18:08 → ER 18:10 → 4TH 19:40
PROVIDERS: ADMIT Internal Medicine; ATTEND Internal Medicine
DX: A41.9 Sepsis, unspecified organism (principal); R65.21 Severe sepsis with septic shock; J96.01 Acute respiratory failure with hypoxia; J18.9 Pneumonia, unspecified organism; N39.0 Urinary tract infection, site not specified; E87.2 Acidosis; E87.0 Hyperosmolality and hypernatremia; E78.00 Pure hypercholesterolemia, unspecified; F03.90 Unspecified dementia, unspecified severity, without behavioral disturbance, psychotic disturbance, mood disturbance, and anxiety; Z20.822 Contact with and (suspected) exposure to COVID-19; N40.0 Benign prostatic hyperplasia without lower urinary tract symptoms; M19.90 Unspecified osteoarthritis, unspecified site; E66.01 Morbid (severe) obesity due to excess calories; E11.649 Type 2 diabetes mellitus with hypoglycemia without coma; R53.81 Other malaise; E86.0 Dehydration; Z66 Do not resuscitate; N18.9 Chronic kidney disease, unspecified; I12.9 Hypertensive chronic kidney disease with stage 1 through stage 4 chronic kidney disease, or unspecified chronic kidney disease; E11.22 Type 2 diabetes mellitus with diabetic chronic kidney disease; Z79.4 Long term (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; Z79.899 Other long term (current) drug therapy; Z68.37 Body mass index [BMI] 37.0-37.9, adult; Z74.01 Bed confinement status
CPT/HCPCS: 36415; 70450; 71045; 80053; 80202; 81000; 82150; 82550; 82553; 82805; 82947; 83605; 83690; 83735; 83880; 84145; 84484; 85007; 85025; 85027; 85610; 85652; 85730; 86141; 87040; 87077; 87088; 87186; 87636; 93005; 93041; 94660; 96361; 96365; 96375; 99291

== ENCOUNTER 2021-02-28 09:19 | Inpatient (IN) | payer MEDICARE, OTHER, MEDICAID ==
[2021-02-28] VITALS (9 sets, daily range): BP systolic 103–129; BP diastolic 48–62
[~2021-02-28] VITALS: Ht 187 cm; Wt 136.0 kg
[~2021-02-28 09:19] MED LIST changes: +ENAL20TA16 PO; +ESCI5TAB PO; +SOLI5TAB7 PO
[2021-02-28 09:43] LABS: BASOPHILS # (AUTO) 0.1 10^3/uL (0.0-0.1); BASOPHILS % (AUTO) 0 % (0-10); EOSINOPHILS # (AUTO) 0.3 10^3/uL (0.0-0.3); EOSINOPHILS % (AUTO) 2 % (0-10); HEMATOCRIT 32 % (40-54); HEMOGLOBIN 9.7 g/dL (13.3-17.7); LYMPHOCYTES # (AUTO) 0.6 10^3/uL (1.0-4.0); LYMPHOCYTES % (AUTO) 4 % (12-44); MEAN CORPUSCULAR HEMOGLOBIN 29 pg (25-34); MEAN CORPUSCULAR HGB CONC 31 g/dL (32-36); MEAN CORPUSCULAR VOLUME 94 fL (80-99); MEAN PLATELET VOLUME 10.1 fL (9.0-12.2); MONOCYTES # (AUTO) 1.3 10^3/uL (0.0-1.0); MONOCYTES % (AUTO) 8 % (0-12); NEUTROPHILS # (AUTO) 14.7 10^3/uL (1.8-7.8); NEUTROPHILS % (AUTO) 86 % (42-75); PLATELET COUNT 538 10^3/uL (130-400); WHITE BLOOD COUNT 17.1 10^3/uL (4.3-11.0)
[2021-02-28] MEDS ORDERED: NS IV 1000 ML 1,000 ML IV SCH ×2 (09:45→10:30)
[2021-02-28 09:55] LABS: ALBUMIN 3.2 GM/DL (3.2-4.5); POTASSIUM 3.9 MMOL/L (3.6-5.0)
[2021-02-28 09:56] LABS: CALCIUM 9.4 MG/DL (8.5-10.1)
[2021-02-28 09:57] LABS: TOTAL PROTEIN 6.9 GM/DL (6.4-8.2)
[2021-02-28 09:59] LABS: BILIRUBIN,TOTAL 0.4 MG/DL (0.1-1.0)
[2021-02-28 10:01] LABS: CREATININE SERUM 1.38 MG/DL (0.60-1.30)
[2021-02-28 10:19] LABS: BAND NEUTROPHILS 7 %; BASOPHILS % (MANUAL) 0 %; EOSINOPHILS % (MANUAL) 3 %; LYMPHOCYTES % (MANUAL) 5 %; MONOCYTES % (MANUAL) 4 %; NEUTROPHILS % (MANUAL) 81 %
[2021-02-28 10:20] LABS: ANISOCYTOSIS SLIGHT
[2021-02-28 11:06] LABS: BILIRUBIN,URINE NEGATIVE (NEGATIVE); CLARITY,URINE CLOUDY; COLOR,URINE YELLOW; GLUCOSE, URINE (UA) 2+ (NEGATIVE); KETONES,URINE NEGATIVE (NEGATIVE); LEUKOCYTE ESTERASE ,URINE 3+ (NEGATIVE); NITRITE,URINE NEGATIVE (NEGATIVE); PROTEIN,URINE 1+ (NEGATIVE)
[2021-02-28 11:28] LABS: BACTERIA,URINE FEW /HPF; WBC,URINE TNTC /HPF; YEAST,URINE MODERATE /HPF
[2021-02-28] MEDS ORDERED: LACTATED RINGERS 1,000 ML IV ONE (11:45)
[2021-02-28] MEDS ORDERED: CEFEPIME INJECTION 1,000 MG in WATER (STERILE) FOR INJECTION 10 ML IV ONE (11:45)
[2021-02-28 12:00] LABS: INR 1.6 (0.8-1.4); PROTHROMBIN TIME PATIENT 19.3 SEC (12.2-14.7)
--- NOTE | 2021-02-28 12:00 | ED General ---
General Chief Complaint: Cardiac/General Problems Stated Complaint: AMS Nursing Triage Note: Patient brought to ER via [facility] from [facility] with c/o a shaking episode with hypotension and new onset confusion. Patient is awake and alert upon arrival here and does answer questions. He denies any pain. He states he suddenly began shaking all over and did not want to eat breakfast. He denies any nause or vomiting. Pt has an indwelling pierre catheter in place with lots of sediment in the tubing and bag. Source of Information: Senior Living Records, Old Records Exam Limitations: Other (PT IS LIMITED HISTORIAN) History of Present Illness Date Seen by Provider: Feb 28, 2021 Time Seen by Provider: 09:20 Initial Comments PT ARRIVES VIA EMS FROM [facility] WAS CALLED FOR PT WITH LOW BLOOD PRESSURE AND ALTERED MENTAL STATUS/CONFUSION PT STATES HE FEELS FINE NOW--STATES HE STARTED GETTING SHAKEY AND THEN HE DIDN'T WANT TO EAT BREAKFAST--STATES "IT WAS SCRAMBLED EGGS AND THAT'S UNUSUAL FOR ME" TO NOT WANT TO EAT SCRAMBLED EGGS PT DENIES FEELING BAD AT ALL RIGHT NOW NO PAIN ANYWHERE NO NAUSEA/VOMITING/DIARRHEA NO ABDOMINAL PAIN NO CHEST PAIN NO SHORTNESS OF BREATH NO DIZZINESS NO PARESTHESIAS OR MOTOR DEFICITS NO COUGH PT HAS INDWELLING PIERRE CATHETER IN PLACE, WITH LARGE AMOUNT OF SEDIMENT IN THE URINE IN THE BAG AND URINE IS CLOUDY, AND CATHETER APPEARS TO BE OBSTRUCTED PCP: DR. DAVIDSON Allergies and Home Medications Allergies Coded Allergies: No Known Drug Allergies (Unverified , 01/03/19) Patient Home Medication List Home Medication List Reviewed: Yes Acetaminophen (Tylenol) 325 Mg Tablet, 650 MG PO Q4H PRN for PAIN-MILD (1-4) OR TEMPATURE, (Reported) Entered as Reported by: JOSE BURR on 01/03/19 1418 Last Action: Continued Acetaminophen (Tylenol) 325 Mg Tablet, 650 MG PO DAILY, (Reported) Entered as Reported by: JOSE BURR on 01/03/19 1418 Last Action: Continued Albuterol Sulfate (Albuterol Sulfate) 2.5 Mg/3 Ml Vial.neb, 3 ML NEB Q4H PRN for SHORTNESS OF BREATH, (Reported) Entered as Reported by: ELVIS GOMEZ on 09/02/20 1307 Last Action: Continued Amlodipine Besylate (Amlodipine Besylate) 10 Mg Tablet, 10 MG PO DAILY, (Reported) Entered as Reported by: ELVIS GOMEZ on 09/02/201306 Last Action: Held Apixaban (Eliquis) 5 Mg Tablet, 5 MG PO 0600,1400, (Reported) Entered as Reported by: ELVIS GOMEZ on 01/13/21946 Last Action: Continued Artificial Tears (Artificial Tears) 15 Ml Soln, 1 DROP OU BID, (Reported) Entered as Reported by: ELVIS GOMEZ on 02/28/211606 Last Action: Converted Aspirin (Aspirin EC) 81 Mg Tablet.dr, 81 MG PO DAILY, (Reported) Entered as Reported by: JOSE BURR on 01/03/191417 Last Action: Continued Atorvastatin Calcium (Atorvastatin Calcium) 10 Mg Tablet, 10 MG PO 1600, (Reported) Entered as Reported by: JOSE BURR on 01/03/191417 Last Action: Continued Benzocaine/Menthol (Cepacol Sore Throat Lozenge) 1 Each Lozenge, 1 EACH MM UD PRN for COUGH, (Reported) Entered as Reported by: ELVIS GOMEZ on 01/13/21946 Last Action: Converted Cetirizine HCl (Cetirizine HCl) 10 Mg Tablet, 10 MG PO DAILY, (Reported) Entered as Reported by: ELVIS GOMEZ on 09/02/201306 Last Action: Converted Ciprofloxacin HCl (Ciprofloxacin HCl) 250 Mg Tablet, 250 MG PO BID, (Reported) Entered as Reported by: ELVIS GOMEZ on 02/28/211606 Last Action: Held Dapagliflozin Propanediol (Farxiga) 10 Mg Tablet, 10 MG PO DAILY, (Reported) Entered as Reported by: ELVIS GOMEZ on 09/02/201306 Last Action: Held Docusate Sodium (Colace) 100 Mg Capsule, 100 MG PO 0600,1400, (Reported) Entered as Reported by: JOSE BURR on 01/03/191417 Last Action: Continued Enalapril Maleate (Enalapril Maleate) 20 Mg Tablet, 20 MG PO 0600,1400, (Reported) Entered as Reported by: ELVIS GOMEZ on 01/13/21946 Last Action: Held Escitalopram Oxalate (Lexapro) 5 Mg Tablet, 5 MG PO DAILY, (Reported) Entered as Reported by: IKE CARABALLO on 01/12/21 0211 Last Action: Converted Finasteride (Finasteride) 5 Mg Tablet, 5 MG PO DAILY, (Reported) Entered as Reported by: JOSE BURR on 01/03/191417 Last Action: Continued Gabapentin (Neurontin) 300 Mg Capsule, 300 MG PO 0600,1000,1400, (Reported) Entered as Reported by: ELVIS GOMEZ on 09/02/201306 Last Action: Continued Insulin Detemir (Levemir Flextouch) 100 Unit/1 Ml Insuln.pen, 33 UNITS SC DAILY, (Reported) Entered as Reported by: JOSE BURR on 01/03/191417 Last Action: Converted Insulin Lispro (Humalog) 100 Unit/1 Ml Vial, 15 UNITS SC 0600,1000,1400, (Reported) Entered as Reported by: JOSE BURR on 01/03/191417 Last Action: Converted Loperamide HCl (Loperamide) 2 Mg Capsule, PO UD PRN for DIARRHEA, (Reported) Entered as Reported by: JOSE BURR on 01/03/191417 Last Action: Continued Magnesium Hydroxide (Milk of Magnesia) 400 Mg/5 Ml Oral.susp, 30 ML PO DAILY PRN for CONSTIPATION-7TH LINE, (Reported) Entered as Reported by: JOSE BURR on 01/03/191417 Last Action: Continued Menthol (Biofreeze) 118 Ml Gel..ml., 1 APPLIC TP Q6H PRN for SHOULDER PAIN, (Reported) Entered as Reported by: JOSE BURR on 01/03/191417 Last Action: Converted Metformin HCl (Metformin HCl ER) 500 Mg Tab.er.24h, 1,000 MG PO 0600,1400, (Reported) Entered as Reported by: ELVIS GOMEZ on 09/02/20 130 Last Action: Continued Metoprolol Tartrate (Metoprolol Tartrate) 25 Mg Tablet, 25 MG PO 0600,1400, (Reported) Entered as Reported by: ELVIS GOMEZ on 09/02/20 130 Last Action: Held Mirabegron (Myrbetriq) 50 Mg Tab.er.24h, 50 MG PO DAILY, (Reported) Entered as Reported by: JOSE BURR on 01/03/191417 Last Action: Converted Polyethylene Glycol 3350 (Miralax) 17 Gm Powd.pack, 17 GM PO Q12H PRN for CONSTIPATION-2ND LINE, (Reported) Entered as Reported by: JOSE BURR on 01/03/19 141 Last Action: Continued Propylene Glycol (Systane Balance) 10 Ml Drops, 1 DROP OU Q4H PRN for DRY EYES, (Reported) Entered as Reported by: ELVIS GOMEZ on 09/02/20 1307 Last Action: Converted Solifenacin Succinate (Solifenacin Succinate) 5 Mg Tablet, 5 MG PO DAILY, (Reported) Entered as Reported by: IKE CARABALLO on 01/12/21 0211 Last Action: Continued Tamsulosin HCl (Flomax) 0.4 Mg Cap, 0.4 MG PO 1700, (Reported) Entered as Reported by: JOSE BURR on 01/03/191417 Last Action: Held Vits A and D/White Pet/Lanolin (A and D Ointment) 42.5 Gm Oint...g., 1 APPLIC TP BID, (Reported) Entered as Reported by: ELVIS GOMEZ on 02/28/21 1607 Last Action: Converted Discontinued Medications Carboxymethylcellulose Sodium (Artificial Tears) 15 Ml Drops, 1 DROP OU BID, (Reported) Discontinued Reason: No Longer Taking Entered as Reported by: ELVIS GOMEZ on 09/02/20 130 Last Action: Discontinued Cefdinir (Cefdinir) 300 Mg Capsule, 300 MG PO BID Discontinued Reason: No Longer Taking Prescribed by: MINNIE SANDERS on 01/14/21 0900 Last Action: Discontinued Review of Systems Review of Systems Constitutional: see HPI EENTM: no symptoms reported Respiratory: no symptoms reported Cardiovascular: no symptoms reported Gastrointestinal: No constipation, No diarrhea; loss of appetite; No nausea, No vomiting Genitourinary: see HPI Musculoskeletal: no symptoms reported Skin: no symptoms reported Psychiatric/Neurological: See HPI; Denies Headache, Denies Numbness, Denies Par esthesia Hematologic/Lymphatic: No Symptoms Reported Immunological/Allergic: no symptoms reported Past Sitddmx-Mqdpib-Mwfppm Hx Patient Social History Tobacco Use?: No Use of E-Cig and/or Vaping dev: No Substance use?: No Alcohol Use?: No Pt feels they are or have been: No Immunizations Up To Date Tetanus Booster (TDap): More than 5yrs Seasonal Allergies Seasonal Allergies: No Past Medical History Surgery/Hospitalization HX: C-SPINE SURGERY Surgeries: Yes (surgical debridement of chronic wounds) Orthopedic Respiratory: Yes (RESP FAILURE/SEPTIC SHOCK/PNEUMONIA) Pneumonia Cardiac: Yes (CHRONIC ISCHEMIC HEART DZ) Coronary Artery Disease, High Cholesterol, Hypertension Neurological: Yes (History of foot drop) Dementia Reproductive Disorders: No Genitourinary: Yes (INCONTINENT; INDWELLING PIERRE CATHETER) Bladder Infection, Renal Failure Gastrointestinal: Yes Chronic Constipation Musculoskeletal: Yes (chronic debility, does not walk) Arthritis, Foot Drop Endocrine: Yes (MORBID OBESITY) Diabetes, Insulin dep HEENT: Yes (DENTAL CARIES) Cataract Loss of Vision: Bilateral Hearing Impairment: Hard of Hearing, Bilateral Hearing Aide Cancer: No Psychosocial: No Integumentary: Yes (MULTIPLE WOUNDS; CANDIDIASIS) Blood Disorders: No Family Medical History Cardiovascular disease 19 MOTHER (CHF) Diabetes mellitus 19 MOTHER Prostate cancer 19 FATHER Heart Disease, Cancer, Diabetes, Hypertension ADMITTED 09/09/20 WITH SEPTIC SHOCK, RESPIRATORY FAILURE, PNEUMONIA ADMITTED 01/11/21 WITH SEPTIC SHOCK, PNEUMONIA, UTI, RESPIRATORY FAILURE Physical Exam Vital Signs Vital Signs - First Documented 02/28/21 09:19 Temp 36.0 Pulse 74 Resp 20 B/P (MAP) 87/53 (64) Pulse Ox 96 O2 Delivery Room Air Capillary Refill : Less Than 3 Seconds Height, Weight, BMI Height: 6'2.00" Weight: 324lbs. 3.0oz. [id number]; 38.00 BMI Method:Stated General Appearance: No Apparent Distress, WD/WN, Obese, Other (TALKATIVE ON ARRIVAL, BUT DOES FREQUENTLY FALL ASLEEP MID-SENTENCE, PT IS HARD OF HEARING, BUT DOES WAKE TO LOUD VOICE AND TACTILE STIMULI) Neck: Normal Inspection Respiratory: Normal Breath Sounds, No Accessory Muscle Use, No Respiratory Distress Cardiovascular: Regular Rate, Rhythm, No Murmur Gastrointestinal: Non Tender, Soft Extremity: Pedal Edema (1-2+ EDEMA) Neurologic/Psychiatric: Alert, No Motor/Sensory Deficits, cycle specialist II-XII Norm as Tested, Other (ORIENTED TO PERSON, PLACE, GROSSLY ORIENTED TO SITUATION. POOR MEMORY) Skin: Normal Color, Warm/Dry Focused Exam Sepsis Stage: Severe Sepsis Possible Source: Genitouriary Lactate Level Time of Focused Exam: 11:30 Respiratory: Normal Breath Sounds, No Accessory Muscle Use, No Respiratory Distress Cardiovascular: Regular Rate, Rhythm, No Murmur Capillary Refill: Less Than 3 Seconds Skin: normal color, warm/dry Lactic Acid Level Within 3hrs of presentation: Admin fluids, Admin ABX, Blood cultures prior to ABX's, Focus exam, Lactate level Progress/Results/Core Measures Suspected Sepsis SIRS Temperature: Pulse: 74 Respiratory Rate: 20 Laboratory Tests 02/28/21 09:33: White Blood Count 17.1H Blood Pressure 87 /53 Mean: 64 Laboratory Tests 02/28/21 09:33: Creatinine 1.38H, INR Comment 1.6H, Platelet Count 538H, Total Bilirubin 0.4 Results/Orders Lab Results Laboratory Tests Test 02/28/21 09:25 02/28/21 09:33 02/28/21 11:01 Range/Units Glucometer 155 H 70-110 MG/DL White Blood Count 17.1 H 4.3-11.0 10^3/uL Red Blood Count 3.36 L 4.30-5.52 10^6/uL Hemoglobin 9.7 L 13.3-17.7 g/dL Hematocrit 32 L 40-54 % Mean Corpuscular Volume 94 80-99 fL Mean Corpuscular Hemoglobin 29 25-34 pg Mean Corpuscular Hemoglobin Concent 31 L 32-36 g/dL Red Cell Distribution Width 15.4 H 10.0-14.5 % Platelet Count 538 H 130-400 10^3/uL Mean Platelet Volume 10.1 9.0-12.2 fL Immature Granulocyte % (Auto) 1 % Neutrophils (%) (Auto) 86 H 42-75 % Lymphocytes (%) (Auto) 4 L 12-44 % Monocytes (%) (Auto) 8 0-12 % Eosinophils (%) (Auto) 2 0-10 % Basophils (%) (Auto) 0 0-10 % Neutrophils # (Auto) 14.7 H 1.8-7.8 10^3/uL Lymphocytes # (Auto) 0.6 L 1.0-4.0 10^3/uL Monocytes # (Auto) 1.3 H 0.0-1.0 10^3/uL Eosinophils # (Auto) 0.3 0.0-0.3 10^3/uL Basophils # (Auto) 0.1 0.0-0.1 10^3/uL Immature Granulocyte # (Auto) 0.2 H 0.0-0.1 10^3/uL Neutrophils % (Manual) 81 % Lymphocytes % (Manual) 5 % Monocytes % (Manual) 4 % Eosinophils % (Manual) 3 % Basophils % (Manual) 0 % Band Neutrophils 7 % Anisocytosis SLIGHT Prothrombin Time 19.3 H 12.2-14.7 SEC INR Comment 1.6 H 0.8-1.4 Activated Partial Thromboplast Time 46 H 24-35 SEC Sodium Level 136 135-145 MMOL/L Potassium Level 3.9 3.6-5.0 MMOL/L Chloride Level 103 98-107 MMOL/L Carbon Dioxide Level 21 21-32 MMOL/L Anion Gap 12 5-14 MMOL/L Blood Urea Nitrogen 42 H 7-18 MG/DL Creatinine 1.38 H 0.60-1.30 MG/DL Estimat Glomerular Filtration Rate 50 BUN/Creatinine Ratio 30 Glucose Level 175 H 70-105 MG/DL Calcium Level 9.4 8.5-10.1 MG/DL Corrected Calcium 10.0 8.5-10.1 MG/DL Magnesium Level 2.0 1.6-2.4 MG/DL Total Bilirubin 0.4 0.1-1.0 MG/DL Aspartate Amino Transf (AST/SGOT) 38 H 5-34 U/L Alanine Aminotransferase (ALT/SGPT) 46 0-55 U/L Alkaline Phosphatase 81 40-136 U/L Total Protein 6.9 6.4-8.2 GM/DL Albumin 3.2 3.2-4.5 GM/DL Procalcitonin 0.51 H <0.10 NG/ML Urine Color YELLOW Urine Clarity CLOUDY Urine pH 6.0 5-9 Urine Specific Carr <=1.005 1.016-1.022 Urine Protein 1+ H NEGATIVE Urine Glucose (UA) 2+ H NEGATIVE Urine Ketones NEGATIVE NEGATIVE Urine Nitrite NEGATIVE NEGATIVE Urine Bilirubin NEGATIVE NEGATIVE Urine Urobilinogen 0.2 < = 1.0 MG/DL Urine Leukocyte Esterase 3+ H NEGATIVE Urine RBC (Auto) 3+ H NEGATIVE Urine RBC 2-5 H /HPF Urine WBC TNTC H /HPF Urine Crystals NONE /LPF Urine Bacteria FEW H /HPF Urine Casts NONE /LPF Urine Mucus NEGATIVE /LPF Urine Yeast MODERATE H /HPF Urine Culture Indicated YES My Orders Orders - PRASHANTH HENRY DO Accucheck Stat ONCE (02/28/21 09:22) Ed Iv/Invasive Line Start (02/28/21 09:22) Monitor-Rhythm Ecg Trace Only (02/28/21 09:22) Cbc With Automated Diff (02/28/21 09:22) Comprehensive Metabolic Panel (02/28/21 09:22) Magnesium (02/28/21 09:22) Ua Culture If Indicated (02/28/21 09:22) Ed Iv/Invasive Line Start (02/28/21 09:40) Ns Iv 1000 Ml (Sodium Chloride 0.9%) (02/28/21 09:45) Manual Differential (02/28/21 09:33) Ed Iv/Invasive Line Start (02/28/21 10:22) Ns Iv 1000 Ml (Sodium Chloride 0.9%) (02/28/21 10:30) Urine Culture (02/28/21 11:01) Cefepime Injection (Maxipime Injection) (02/28/21 11:45) Ed Iv/Invasive Line Start (02/28/21 11:37) Lactated Ringers (Lr 1000 Ml Iv Solution (02/28/21 11:45) Medications Given in ED Vital Signs/I&O 02/28/21 09:19 Temp 36.0 Pulse 74 Resp 20 B/P (MAP) 87/53 (64) Pulse Ox 96 O2 Delivery Room Air Capillary Refill : Less Than 3 Seconds Blood Pressure Mean: 64 Point of Care Testing Finger Stick Blood Glucose: 155 Progress Note : Progress Note PIERRE CATHETER REPLACED, WITH IMMEDIATE RETURN OF 1400 ML OF GROSSLY BLOODY URINE CATHETER WAS IRRIGATED--NO CLOTS FOUND, AND GOOD RETURN, AND URINE BECOMING MUCH LESS BLOODY GIVEN IV FLUIDS X 3 LITERS, BP UP TO > 100 SYSTOLIC PT SLEPT FOR MOST OF ER STAY, PT AWAKENS TO VERBAL AND TACTILE STIMULI--PT IS VERY HARD OF HEARING. NO DETERIORATION IN PT'S CONDITION DURING ER STAY Diagnostic Imaging Comments CXR--PER RADIOLOGIST REPORT AT 1220 FINDINGS: Single view of the chest demonstrates new infiltrate in the right base. The heart is enlarged without pulmonary edema. There is no pneumothorax. Osseous structures stable. IMPRESSION: New infiltrate right lung base. Reviewed: Reviewed by Me Departure Communication (Admissions) 1140--SPOKE WITH DR. SANDERS, HOSPITALIST FOR [facility], ACCEPTS PT FOR ADMIT Impression Primary Impression: Severe sepsis Additional Impressions: UTI (urinary tract infection) due to urinary indwelling catheter RLL pneumonia IDDM (insulin dependent diabetes mellitus) Acute renal failure Anemia Disposition: ADMITTED INPATIENT Condition: Stable Admissions Decision to Admit Reason: Admit from ER (General) Decision to Admit/Date: Feb 28, 2021 Time/Decision to Admit Time: 11:40 Departure-Patient Inst. Referrals: [facility] (PCP) Primary Care Physician CONTRERAS QUINN (Family) Primary Care Physician PRASHANTH HENRY DO Feb 28, 2021 12:00
--- NOTE | 2021-02-28 12:08 | Diagnostic Imaging Report ---
INDICATION: Hypertension, confusion. COMPARISON: 01/12/2021 FINDINGS: Single view of the chest demonstrates new infiltrate in the right base. The heart is enlarged without pulmonary edema. There is no pneumothorax. Osseous structures stable. IMPRESSION: New infiltrate right lung base. Dictated by: Dictated on workstation # [id number]
[2021-02-28] MEDS ORDERED: ACETAMINOPHEN 500 MG TAB (TYLENOL) PO PRN (14:30)
[2021-02-28] MEDS ORDERED: ONDANSETRON 4 MG/2 ML (SDV) Z0FRAN IV PRN (14:30)
[2021-02-28] MEDS ORDERED: CATHETER FLUSH 10 ML SYR IV PRN (14:45)
[2021-02-28] MEDS ORDERED: POLY15DR27 OU (16:07)
[2021-02-28] MEDS ORDERED: CIPR250T3 PO (16:07)
[2021-02-28] MEDS ORDERED: VITS42.53 TP (16:07)
[2021-02-28] MEDS: inSUlin ASPART (NovoLOG) 1 UNIT/0.01 ML (CHARGE PER UNIT) SC SCH ×2 (16:31→20:28)
[2021-02-28] MEDS: NS IV 1000 ML 1,000 ML IV SCH ×4 (16:34→22:44)
[2021-02-28] MEDS ORDERED: RT-ALBUTEROL SULF 2.5 MG/3 ML PRE-MIX VIAL INH PRN (16:45)
--- NOTE | 2021-02-28 17:36 | History & Physical-Hospitalist ---
History of Present Illness HPI/Chief Complaint Chief complaint: Severe sepsis from UTI History of present illness: This is a 80-year-old white male from [facility] who I have treated several times who presented for hypotension from the senior living. He was found to have a UTI. This is acute on chronic. He has an indwelling catheter. I did speak to him about hospice last time he was in the hospital 1 month ago and talk to his DPOA his sister but he did not enroll in hospice and remains a full code. Patient is completely dependent on ADLs and does not ambulate. I did speak with his daughter who is at the bedside who is agreeable for hospice consult. I will talk to his sister also this weekend. Cardiac stepdown will be needed due to hypotension and high risk for decompensation and remains a full code at this point. To note upon my review of old records he was a DNR last admission and now that has changed? We will have to review that. Source: patient, family, old records Exam Limitations: no limitations Date Seen 02/28/21 Time Seen by a Provider: 13:00 Attending Physician Tyra Foley DO [facility] [place] Referring Physician Date of Admission Feb 28, 2021 at 11:40 Home Medications & Allergies Home Medications Reviewed patient Home Medication Reconciliation performed by pharmacy medication reconciliations public address technician and/or nursing. Patients Allergies have been reviewed. Allergies Allergies Coded Allergies No Known Drug Allergies (Unverified01/03/19) Past Cfefsxa-Enwxfe-Fvymck Hx Patient Social History Marrital Status: single Employed/Student: retired Tobacco Use?: No Smoking Status: Unknown if Ever Smoked Use of E-Cig and/or Vaping dev: No Substance use?: No Alcohol Use?: No Pt feels they are or have been: No Immunizations Up To Date Date of Influenza Vaccine: Mar 31, 2018 Date of Pneumonia Vaccine: Mar 21, 2011 Seasonal Allergies Seasonal Allergies: No Current Status Advance Directives: Yes Advance Directive Location: Copy placed in chart Communicates: Verbally Primary Language: Croatian Preferred Spoken Language: Croatian Is interpretation needed?: No Sensory deficits: Vision impairment, Hearing impairment Implanted or Applied Medical D: None Past Medical History Surgeries: Orthopedic Pneumonia High Cholesterol, Hypertension Dementia Bladder Infection, Renal Failure Chronic Constipation Arthritis, Foot Drop Diabetes, Insulin dep Cataract Loss of Vision: Bilateral Hearing Impairment: Hard of Hearing, Bilateral Hearing Aide Blood Disorders: No Family Medical History Cardiovascular disease 19 MOTHER (CHF) Diabetes mellitus 19 MOTHER Prostate cancer 19 FATHER Heart Disease, Cancer, Diabetes, Hypertension ADMITTED 09/09/20 WITH SEPTIC SHOCK, RESPIRATORY FAILURE, PNEUMONIA Review of Systems ROS-Unable to Obtain: Dementia Constitutional: see HPI, dizziness, malaise, weakness Physical Exam Physical Exam Vital Signs Vital Signs - First Documented 02/28/21 02/28/21 09:19 23:12 Temp 36.0 Pulse 74 Resp 20 B/P (MAP) 87/53 (64) Pulse Ox 96 O2 Delivery Room Air O2 Flow Rate 3.00 Capillary Refill : Less Than 3 Seconds Height, Weight, BMI Height: 6'2.00" Weight: 324lbs. 3.0oz. [id number]; 38.89 BMI Method:Stated General Appearance: No Apparent Distress, Anxious, Chronically ill, Obese Eyes: Right Eye Normal Inspection, Right Eye PERRL HEENT: PERRL/EOMI, Normal ENT Inspection, Pharynx Normal, Moist Mucous Membranes Neck: Full Range of Motion, Normal Inspection, Non Tender Respiratory: Chest Non Tender, Lungs Clear, Normal Breath Sounds, No Accessory Muscle Use, No Respiratory Distress Cardiovascular: Regular Rate, Rhythm, No Edema, No Gallop, No JVD, No Murmur, Normal Peripheral Pulses Gastrointestinal: Normal Bowel Sounds, No Organomegaly, No Pulsatile Mass, Non Tender, Soft Back: Normal Inspection, No CVA Tenderness, No Vertebral Tenderness Extremity: Normal Capillary Refill, Normal Inspection, Normal Range of Motion, Non Tender, No Calf Tenderness, No Pedal Edema Neurologic/Psychiatric: Alert, Depressed Affect, Disoriented, Motor Weakness (Generalized) Skin: Normal Color, Warm/Dry Lymphatic: No Adenopathy Results Results/Procedures Labs Laboratory Tests 02/28/21 09:33 Patient resulted labs reviewed. Assessment/Plan Admission Diagnosis Assessment: Severe sepsis UTI Dementia Chronic kidney disease Nonambulatory bedbound Plan: IV fluids IV antibiotics Needs DNR Needs hospice Admission Status: Inpatient Order (span 2 midnights) Reason for Inpatient Admission: Severe sepsis TYRA FOLEY DO Feb 28, 2021 17:35
[2021-02-28] MEDS ORDERED: BENZOCAINE MM PRN (17:45)
[2021-02-28] MEDS ORDERED: MILK OF MAGNESIA 400 MG/5 ML 30 ML UDC PO PRN (17:45)
[2021-02-28] MEDS ORDERED: NON-FORMULARY MEDICATION 1 EA EA (Menthol (Biofreeze) 1 APPLIC) TP PRN (17:45)
[2021-02-28] MEDS ORDERED: polyethylene glycoL POWDER 17 GM (MIRALAX) PACK PO PRN (17:45)
[2021-02-28] MEDS ORDERED: LOPERAMIDE 2 MG (IMODIUM) TABLET PO PRN (17:45)
[2021-02-28] MEDS ORDERED: ACETAMINOPHEN 325 MG TABLET PO PRN (17:45)
[2021-02-28] MEDS ORDERED: MENTHOL MM PRN (17:45)
[2021-02-28] MEDS ORDERED: RT-ALBUTEROL SULF 2.5 MG/3 ML PRE-MIX VIAL IH PRN (17:45)
[2021-02-28] MEDS ORDERED: NON-FORMULARY MEDICATION 1 EA EA (Propylene Glycol (Systane Balance) 1 DROP) OU PRN (17:45)
[2021-02-28] MEDS ORDERED: [UNRECOGNIZED DRUG - OTHER] MM PRN (17:45)
[2021-02-28] MEDS: CEFEPIME 1,000 MG/SWFI 10 ML IV PUSH IV SCH ×4 (18:41→23:09)
[2021-02-28] MEDS ORDERED: ARTIFICAL TEARS 0.4 ML UNIT DOSE (REFRESH PLUS) OU PRN (18:45)
[2021-02-28] MEDS ORDERED: CHLORASEPTIC LOZENGE MM PRN (18:45)
[2021-02-28] MEDS ORDERED: MENTHOL 1.75 OZ JAR (VICKS VAPORUB) TP PRN (18:45)
[2021-02-28] MEDS ORDERED: VITS A AND D TP SCH (21:00)
[2021-02-28] MEDS ORDERED: NON-FORMULARY MEDICATION 1 EA EA (Artificial Tears 1 DROP) OU SCH (21:00)
[2021-02-28] MEDS ORDERED: LANOLIN TP SCH (21:00)
[2021-02-28] MEDS ORDERED: WHITE PET TP SCH (21:00)
[2021-02-28] MEDS ORDERED: [UNRECOGNIZED DRUG - OTHER] TP SCH (21:00)
[2021-02-28] MEDS ORDERED: APPL TP SCH (21:00)
[2021-02-28] MEDS: ARTIFICAL TEARS 0.4 ML UNIT DOSE (REFRESH PLUS) OU SCH (21:36)
[2021-02-28] MEDS: A & D OINTMENT 42.5 GM TUBE TOP SCH (21:37)
[2021-03-01] MEDS: NS IV 1000 ML 1,000 ML IV SCH ×4 (01:44→23:18)
[2021-03-01 03:47] VITALS: BP 131/57
[2021-03-01] MEDS: inSUlin ASPART (NovoLOG) 1 UNIT/0.01 ML (CHARGE PER UNIT) SC SCH ×7 (05:47→20:05)
[2021-03-01 05:49] LABS: BASOPHILS # (AUTO) 0.1 10^3/uL (0.0-0.1); BASOPHILS % (AUTO) 0 % (0-10); EOSINOPHILS # (AUTO) 0.3 10^3/uL (0.0-0.3); EOSINOPHILS % (AUTO) 3 % (0-10); HEMATOCRIT 33 % (40-54); HEMOGLOBIN 9.7 g/dL (13.3-17.7); LYMPHOCYTES # (AUTO) 0.5 10^3/uL (1.0-4.0); LYMPHOCYTES % (AUTO) 4 % (12-44); MEAN CORPUSCULAR HEMOGLOBIN 28 pg (25-34); MEAN CORPUSCULAR HGB CONC 30 g/dL (32-36); MEAN CORPUSCULAR VOLUME 94 fL (80-99); MEAN PLATELET VOLUME 9.7 fL (9.0-12.2); MONOCYTES # (AUTO) 1.1 10^3/uL (0.0-1.0); MONOCYTES % (AUTO) 8 % (0-12); NEUTROPHILS # (AUTO) 11.4 10^3/uL (1.8-7.8); NEUTROPHILS % (AUTO) 85 % (42-75); PLATELET COUNT 477 10^3/uL (130-400); WHITE BLOOD COUNT 13.5 10^3/uL (4.3-11.0)
[2021-03-01] MEDS: GABAPENTIN 300 MG (NEURONTIN) CAP PO SCH ×3 (05:59→14:34)
[2021-03-01] MEDS: metFORMIN XR 500 MG (GLUCOPHAGE XR) TAB PO SCH ×2 (05:59→14:34)
[2021-03-01] MEDS: APIXABAN 5 MG (ELIQUIS) TABLET PO SCH ×2 (05:59→14:34)
[2021-03-01] MEDS: DOCUSATE SODIUM 100 MG (COLACE) CAP PO SCH ×2 (05:59→14:34)
[2021-03-01] MEDS: CEFEPIME 1,000 MG/SWFI 10 ML IV PUSH IV SCH ×8 (05:59→23:11)
[2021-03-01] MEDS: TROSPIUM 20 MG (SANCTURA) TAB PO SCH ×2 (06:00→17:03)
[2021-03-01] MEDS ORDERED: INSULIN LISPRO 15 UNIT SC SCH (06:00)
[2021-03-01 06:06] LABS: POTASSIUM 3.1 MMOL/L (3.6-5.0)
[2021-03-01 06:07] LABS: CALCIUM 9.3 MG/DL (8.5-10.1)
[2021-03-01 06:09] LABS: TOTAL PROTEIN 6.5 GM/DL (6.4-8.2)
[2021-03-01 06:10] LABS: BILIRUBIN,TOTAL 0.3 MG/DL (0.1-1.0)
[2021-03-01 06:12] LABS: CREATININE SERUM 0.89 MG/DL (0.60-1.30)
[2021-03-01 08:01] VITALS: BP 121/54
--- NOTE | 2021-03-01 08:19 | Progress Note - Hospitalist ---
Subjective HPI/CC On Admission Date Seen by Provider: Mar 01, 2021 Time Seen by Provider: 11:00 Chief complaint: Severe sepsis from UTI History of present illness: This is a 80-year-old white male from [facility] care home who I have treated several times who presented for hypotension from the care home. He was found to have a UTI. This is acute on chronic. He has an indwelling catheter. I did speak to him about hospice last time he was in the hospital 1 month ago and talk to his DPOA his sister but he did not enroll in hospice and remains a full code. Patient is completely dependent on ADLs and does not ambulate. I did speak with his daughter who is at the bedside who is agreeable for hospice consult. I will talk to his sister also this weekend. Cardiac stepdown will be needed due to hypotension and high risk for decompensation and remains a full code at this point. To note upon my review of old records he was a DNR last admission and now that has changed? We will have to review that. Subjective/Events-last exam Patient doing well Moving to fourth floor Awake and alert and eating lunch IV antibiotics maintained and tolerated Switch him back to DO NOT RESUSCITATE after family and DPOA discussed Patient is a hospice candidate Indwelling Garrett catheter places him at risk for recurrent UTIs Review of Systems General: Fatigue Focused Exam Lactate Level 02/28/21 12:07: Lactic Acid Level 1.90 02/28/21 14:29: Lactic Acid Level 2.03*H 02/28/21 16:53: Lactic Acid Level 1.95 Time of Focused Exam: 11:30 Objective Exam Vital Signs Vital Signs Date Time Temp Pulse Resp B/P (MAP) Pulse Ox O2 Delivery O2 Flow Rate FiO2 03/01/21 20:01 37.3 87 20 123/71 (88) 99 Room Air 03/01/21 10:17 4.00 03/01/21 05:31 97 Capillary Refill : Less Than 3 Seconds General Appearance: No Apparent Distress, WD/WN, Chronically ill, Obese Respiratory: No Accessory Muscle Use, No Respiratory Distress, Decreased Breath Sounds Cardiovascular: Regular Rate, Rhythm Neurologic/Psychiatric: Alert, Depressed Affect Results/Procedures Lab Laboratory Tests 03/01/21 05:33 Patient resulted labs reviewed. Assessment/Plan Assessment and Plan Assess & Plan/Chief Complaint Assessment: Severe sepsis UTI Dementia Chronic kidney disease Nonambulatory bedbound Plan: IV fluids IV antibiotics Needs DNR Needs hospice 03/01/2021: DNR obtained Supportive care Transfer to fourth floor MINNIE SANDERS DO Mar 01, 2021 08:19
[2021-03-01] MEDS ORDERED: MAGNESIUM 1 GM/100 ML IVPB 100 ML IV ONE (08:30)
[2021-03-01] MEDS ORDERED: SOLIFENACIN 5 MG TAB (VESICARE) NON-FORMULARY PO SCH (09:00)
[2021-03-01] MEDS ORDERED: NON-FORMULARY MEDICATION 1 EA EA (Escitalopram Oxalate (Lexapro) 5 MG) PO SCH (09:00)
[2021-03-01] MEDS ORDERED: NON-FORMULARY MEDICATION 1 EA EA (Cetirizine HCl 10 MG) PO SCH (09:00)
[2021-03-01] MEDS ORDERED: INSULIN DETEMIR 33 UNIT SC SCH (09:00)
[2021-03-01] MEDS ORDERED: NON-FORMULARY MEDICATION 1 EA EA (Mirabegron (Myrbetriq) 50 MG) PO SCH (09:00)
[2021-03-01] MEDS: FLUCONAZOLE 200 MG/100 ML 50 ML, EMPTY IV BAG (PVC) 1 EA IV SCH ×2 (09:38)
[2021-03-01] MEDS: ASPIRIN E.C. 81 MG (ECOTRIN) TAB PO SCH (09:58)
[2021-03-01] MEDS: FINASTERIDE (PROSCAR) 5 MG TAB PO SCH (09:58)
[2021-03-01] MEDS: ARTIFICAL TEARS 0.4 ML UNIT DOSE (REFRESH PLUS) OU SCH ×2 (09:58→23:10)
[2021-03-01] MEDS: LORATADINE (CLARITIN) 10 MG TAB PO SCH (09:58)
[2021-03-01] MEDS: ACETAMINOPHEN 325 MG TABLET PO SCH (09:59)
[2021-03-01] MEDS: A & D OINTMENT 42.5 GM TUBE TOP SCH ×2 (09:59→23:11)
[2021-03-01 11:59] VITALS: BP 102/44
[2021-03-01] MEDS: POTASSIUM CL 10MEQ/50ML IVPB 50 ML IV SCH ×3 (14:30→17:03)
[2021-03-01 16:00] VITALS: BP 145/77
[2021-03-01] MEDS: AtorvaSTATin TABLET 10 MG TABLET PO SCH (17:03)
[2021-03-01 20:01] VITALS: BP 123/71
[2021-03-02] VITALS (7 sets, daily range): BP systolic 102–152; BP diastolic 61–77
[2021-03-02] MEDS: TROSPIUM 20 MG (SANCTURA) TAB PO SCH ×2 (04:57→15:36)
[2021-03-02] MEDS: CEFEPIME 1,000 MG/SWFI 10 ML IV PUSH IV SCH ×8 (04:57→23:22)
[2021-03-02] MEDS: APIXABAN 5 MG (ELIQUIS) TABLET PO SCH ×2 (04:57→13:37)
[2021-03-02] MEDS: metFORMIN XR 500 MG (GLUCOPHAGE XR) TAB PO SCH ×2 (04:57→13:36)
[2021-03-02] MEDS: GABAPENTIN 300 MG (NEURONTIN) CAP PO SCH ×3 (04:58→13:36)
[2021-03-02] MEDS: DOCUSATE SODIUM 100 MG (COLACE) CAP PO SCH ×2 (04:58→13:36)
[2021-03-02 06:29] LABS: BASOPHILS % (AUTO) 0 % (0-10); EOSINOPHILS # (AUTO) 0.5 10^3/uL (0.0-0.3); EOSINOPHILS % (AUTO) 4 % (0-10); HEMATOCRIT 32 % (40-54); LYMPHOCYTES # (AUTO) 0.4 10^3/uL (1.0-4.0); LYMPHOCYTES % (AUTO) 4 % (12-44); MEAN CORPUSCULAR HEMOGLOBIN 28 pg (25-34); MEAN CORPUSCULAR HGB CONC 31 g/dL (32-36); MEAN CORPUSCULAR VOLUME 92 fL (80-99); MEAN PLATELET VOLUME 9.8 fL (9.0-12.2); MONOCYTES # (AUTO) 0.8 10^3/uL (0.0-1.0); MONOCYTES % (AUTO) 7 % (0-12); NEUTROPHILS # (AUTO) 10.3 10^3/uL (1.8-7.8); NEUTROPHILS % (AUTO) 85 % (42-75); PLATELET COUNT 544 10^3/uL (130-400); WHITE BLOOD COUNT 12.2 10^3/uL (4.3-11.0)
[2021-03-02 06:41] LABS: POTASSIUM 3.1 MMOL/L (3.6-5.0)
[2021-03-02 06:42] LABS: CALCIUM 9.6 MG/DL (8.5-10.1)
[2021-03-02 06:43] LABS: TOTAL PROTEIN 6.7 GM/DL (6.4-8.2)
[2021-03-02] MEDS: inSUlin ASPART (NovoLOG) 1 UNIT/0.01 ML (CHARGE PER UNIT) SC SCH ×7 (06:43→20:02)
[2021-03-02 06:45] LABS: BILIRUBIN,TOTAL 0.3 MG/DL (0.1-1.0)
[2021-03-02 06:47] LABS: CREATININE SERUM 0.73 MG/DL (0.60-1.30)
--- NOTE | 2021-03-02 07:56 | Progress Note - Hospitalist ---
Subjective HPI/CC On Admission Date Seen by Provider: Mar 02, 2021 Time Seen by Provider: 11:00 Chief complaint: Severe sepsis from UTI History of present illness: This is a 80-year-old white male from [facility] who I have treated several times who presented for hypotension from the correction. He was found to have a UTI. This is acute on chronic. He has an indwelling catheter. I did speak to him about hospice last time he was in the hospital 1 month ago and talk to his DPOA his sister but he did not enroll in hospice and remains a full code. Patient is completely dependent on ADLs and does not ambulate. I did speak with his daughter who is at the bedside who is agreeable for hospice consult. I will talk to his sister also this weekend. Cardiac stepdown will be needed due to hypotension and high risk for decompensation and remains a full code at this point. To note upon my review of old records he was a DNR last admission and now that has changed? We will have to review that. Subjective/Events-last exam Patient doing pretty well Crankiness noted DNR now Wants to go back to the correction Likely will discharge tomorrow Replace potassium Needs hospice at discharge Review of Systems General: Fatigue, Malaise Focused Exam Lactate Level 02/28/21 12:07: Lactic Acid Level 1.90 02/28/21 14:29: Lactic Acid Level 2.03*H 02/28/21 16:53: Lactic Acid Level 1.95 Time of Focused Exam: 11:30 Objective Exam Vital Signs Vital Signs Date Time Temp Pulse Resp B/P (MAP) Pulse Ox O2 Delivery O2 Flow Rate FiO2 03/02/21 15:30 36.1 95 16 110/69 (83) 94 Room Air 03/01/21 10:17 4.00 03/01/21 05:31 97 Capillary Refill : Less Than 3 Seconds General Appearance: No Apparent Distress, WD/WN, Chronically ill, Obese Respiratory: Lungs Clear Cardiovascular: Regular Rate, Rhythm Neurologic/Psychiatric: Alert, Oriented x3 Results/Procedures Lab Laboratory Tests 03/02/21 06:12 Patient resulted labs reviewed. Assessment/Plan Assessment and Plan Assess & Plan/Chief Complaint Assessment: Severe sepsis UTI Dementia Chronic kidney disease Nonambulatory bedbound Hypokalemia Apathy Plan: IV fluids IV antibiotics Needs DNR Needs hospice 03/01/2021: DNR obtained Supportive care Transfer to fourth floor 03/02/2021: Replace potassium Needs hospice at discharge Patient is bedbound MINNIE SANDERS DO Mar 02, 2021 07:56
[2021-03-02] MEDS: ASPIRIN E.C. 81 MG (ECOTRIN) TAB PO SCH (09:35)
[2021-03-02] MEDS: LORATADINE (CLARITIN) 10 MG TAB PO SCH (09:35)
[2021-03-02] MEDS: ACETAMINOPHEN 325 MG TABLET PO SCH (09:35)
[2021-03-02] MEDS: FINASTERIDE (PROSCAR) 5 MG TAB PO SCH (09:35)
[2021-03-02] MEDS: ARTIFICAL TEARS 0.4 ML UNIT DOSE (REFRESH PLUS) OU SCH ×2 (09:35→20:01)
[2021-03-02] MEDS: A & D OINTMENT 42.5 GM TUBE TOP SCH ×2 (09:36→20:02)
[2021-03-02] MEDS: POTASSIUM CL 10MEQ/50ML IVPB 50 ML IV SCH ×8 (09:41→17:39)
[2021-03-02] MEDS: FLUCONAZOLE 200 MG/100 ML 50 ML, EMPTY IV BAG (PVC) 1 EA IV SCH ×2 (10:40)
[2021-03-02] MEDS: AtorvaSTATin TABLET 10 MG TABLET PO SCH (15:36)
[2021-03-03 03:21] VITALS: BP 137/70
[2021-03-03] MEDS: NS IV 1000 ML 1,000 ML IV SCH ×2 (04:03→15:03)
[2021-03-03] MEDS: DOCUSATE SODIUM 100 MG (COLACE) CAP PO SCH ×2 (04:50→15:04)
[2021-03-03] MEDS: metFORMIN XR 500 MG (GLUCOPHAGE XR) TAB PO SCH ×2 (05:14→15:04)
[2021-03-03] MEDS: GABAPENTIN 300 MG (NEURONTIN) CAP PO SCH ×3 (05:14→15:04)
[2021-03-03] MEDS: CEFEPIME 1,000 MG/SWFI 10 ML IV PUSH IV SCH ×6 (05:14→17:15)
[2021-03-03] MEDS: APIXABAN 5 MG (ELIQUIS) TABLET PO SCH ×2 (05:14→15:04)
[2021-03-03] MEDS: TROSPIUM 20 MG (SANCTURA) TAB PO SCH ×2 (05:14→17:15)
[2021-03-03] MEDS: inSUlin ASPART (NovoLOG) 1 UNIT/0.01 ML (CHARGE PER UNIT) SC SCH ×7 (05:20→21:16)
[2021-03-03 06:02] LABS: BASOPHILS % (AUTO) 0 % (0-10); EOSINOPHILS # (AUTO) 0.6 10^3/uL (0.0-0.3); EOSINOPHILS % (AUTO) 4 % (0-10); HEMATOCRIT 36 % (40-54); HEMOGLOBIN 10.8 g/dL (13.3-17.7); LYMPHOCYTES # (AUTO) 0.7 10^3/uL (1.0-4.0); LYMPHOCYTES % (AUTO) 5 % (12-44); MEAN CORPUSCULAR HEMOGLOBIN 28 pg (25-34); MEAN CORPUSCULAR HGB CONC 30 g/dL (32-36); MEAN CORPUSCULAR VOLUME 93 fL (80-99); MEAN PLATELET VOLUME 9.9 fL (9.0-12.2); MONOCYTES # (AUTO) 0.7 10^3/uL (0.0-1.0); MONOCYTES % (AUTO) 4 % (0-12); NEUTROPHILS # (AUTO) 13.6 10^3/uL (1.8-7.8); NEUTROPHILS % (AUTO) 87 % (42-75); PLATELET COUNT 614 10^3/uL (130-400); WHITE BLOOD COUNT 15.7 10^3/uL (4.3-11.0)
[2021-03-03 06:14] LABS: ALBUMIN 3.2 GM/DL (3.2-4.5)
[2021-03-03 06:16] LABS: CALCIUM 9.6 MG/DL (8.5-10.1)
[2021-03-03 06:19] LABS: BILIRUBIN,TOTAL 0.3 MG/DL (0.1-1.0)
[2021-03-03 06:21] LABS: CREATININE SERUM 0.74 MG/DL (0.60-1.30)
[2021-03-03 08:00] VITALS: BP 132/69
[2021-03-03] MEDS: ACETAMINOPHEN 325 MG TABLET PO SCH (09:09)
[2021-03-03] MEDS: LORATADINE (CLARITIN) 10 MG TAB PO SCH (09:09)
[2021-03-03] MEDS: ASPIRIN E.C. 81 MG (ECOTRIN) TAB PO SCH (09:09)
[2021-03-03] MEDS: FINASTERIDE (PROSCAR) 5 MG TAB PO SCH (09:09)
[2021-03-03] MEDS: ARTIFICAL TEARS 0.4 ML UNIT DOSE (REFRESH PLUS) OU SCH ×2 (09:09→21:16)
[2021-03-03] MEDS: A & D OINTMENT 42.5 GM TUBE TOP SCH ×2 (09:11→21:16)
--- NOTE | 2021-03-03 09:19 | Physical Therapy Evaluation ---
PT Evaluation-General Medical Diagnosis Admission Date Feb 28, 2021 at 11:40 Medical Diagnosis: AMS, UTI Onset Date: Feb 28, 2021 Therapy Diagnosis Therapy Diagnosis: impaired mobility, strength Height/Weight Height (Feet): 6 Height (Inches): 2.00 Weight (Pounds): 324 Weight (Ounces): 3.0 Precautions Precautions/Isolations: Fall Prevention, Standard Precautions Referral Physician: Tyra Foley DO Reason for Referral: Evaluation/Treatment Medical History Pertinent Medical History: Arthritis, DM, Dementia, HTN Additional Medical History Past Medical History Surgeries: Orthopedic Pneumonia High Cholesterol, Hypertension Dementia Bladder Infection, Renal Failure Chronic Constipation Arthritis, Foot Drop Diabetes, Insulin dep Cataract Loss of Vision: Bilateral Hearing Impairment: Hard of Hearing, Bilateral Hearing Aide Reviewed History: Yes Social History Home: [facility] Prior Prior Level of Function SCALE: Activities may be completed with or without assistive devices. 9-Lbdmurrfum-ijzeecj completes the activity by him/herself with no assistance from a helper. 5-Set-up or Clean-up Assistance-helper sets up or cleans up; patient completes activity. [place] assists only prior to or following the activity. 4-Supervision or Touching Assistance-helper provides verbal cues and/or touching/steadying and/or contact guard assistance as patient completes activity. Assistance may be provided throughout the activity or intermittently. 3-Partial/Moderate Assistance-helper does LESS THAN HALF the effort. [place] lifts, holds or supports trunk or limbs, but provides less than half the effort. 2-Substantial/Maximal Assistance-helper does MORE THAN HALF the effort. [place] lifts or holds trunk or limbs and provides more than half the effort. 2-Oxcyjxwdx-jcwwwi does ALL the effort. Patient does none of the effort to complete the activity. Or, the assistance of 2 or more helpers is required for the patient to complete the activity. If activity was not attempted, code reason: 7-Patient Refused. 9-Not Applicable-not attempted and the patient did not perform the activity before the current illness, exacerbation or injury. 10-Not Attempted due to Environmental Limitations-(lack of equipment, weather restraints, etc.). 88-Not Attempted due to Medical Conditions or Safety Concerns. Bed Mobility: 1 Transfers (B,C,W/C): 1 Indoor Mobility (Ambulation): Dependent Prior Devices Use: Motorized wheelchair PT Evaluation-Current Subjective Patient in bed pre tx, agrees to PT, has no complaints of pain. Pt/Family Goals "to get stronger if I can" Objective Patient Orientation: Person, Place, Situation ROM/Strength Strength Lower Extremities 3/5 gross BLE Transfers Roll Left to Right (QC): 2 Sit to Lying (QC): 1 Lying to Sitting/Side of Bed(Q: 1 Patient was able to sit to the side of the bed with assist of 2 (the same laying back down and scooting up in bed), he was able to sit for about 10 min and perform LE exercises, eventually he became fatigued and could not continue sitting without falling backward Balance Sitting Static: Fair Sitting Dynamic: Poor Treatment BLE exercises x20 (AP, LAQ) Assessment/Needs Patient in bed post tx with nurse call, phone, tray, all needs met. Patient has impaired mobility, strength, endurance. Needs 2 person assist for supine <-> sit. Rehab Potential: Guarded PT Card Cutter Helper Goals Care Home Goals PT Care Home Goals Time Frame: Mar 10, 2021 Roll Left & Right (QC): 3 Sit to Lying (QC): 2 Lying-Sitting on Side/Bed(QC): 2 PT Plan Problem List Problem List: Activity Tolerance, Functional Strength, Safety, Balance, Gait, Transfer, Bed Mobility, ROM Treatment/Plan Treatment Plan: Continue Plan of Care Treatment Plan: Bed Mobility, Education, Functional Activity [place], Functional Strength, Safety, Therapeutic Exercise, Transfers Treatment Duration: Mar 10, 2021 Frequency: 6 times per week Safety Risks/Education Patient Education: Correct Positioning, Safety Issues Teaching Recipient: Patient Teaching Methods: Demonstration, Discussion Response to Teaching: Reinforcement Needed Discharge Recommendations Plan Patient will perform bed mobility and transfer training, balance and endurance training, functional strengthening, and education, to improve functional mobility and independence at home. Therapy Discharge Recommendati: 24 Hour Supervision Time/GCodes Time In: 0847 Time Out: 0900 Total Billed Treatment Time: 13 Total Billed Treatment 1 visit HOMER LEIJA PT Mar 03, 2021 09:19
--- NOTE | 2021-03-03 11:03 | Occupational Therapy Eval ---
OT Evaluation-General/PLF Medical Diagnosis Admission Date Feb 28, 2021 at 11:40 Medical Diagnosis: AMS, UTI Onset Date: Feb 28, 2021 Therapy Diagnosis Therapy Diagnosis: Impaired ADLs, bed mobility, ROM, endurance, activity tolerance Height/Weight Height (Feet): 6 Height (Inches): 2.00 Weight (Pounds): 324 Weight (Ounces): 3.0 Precautions Precautions/Isolations: Fall Prevention, Standard Precautions Referral Physician: Tyra Foley DO Referral Reason: Evaluation/Treatment Medical History Pertinent Medical History: Arthritis, DM, Dementia, HTN Current History Pt presented to hospital from assisted with hypotension. Found to have UTI. At baseline, Pt is dependent for all ADLs except eating. He reports that all dressing and toileting tasks are completed at bed level. He is dependent for all transfers to/from w/c and for w/c mobility, yet spends most of his time in bed. Facility provides all IADLs. Pt with indwelling catheter. Reviewed History: Yes Social History Home: Intermediate ADL-Prior Level of Function SCALE: Activities may be completed with or without assistive devices. 5-Hsskaeromn-xtctzxx completes the activity by him/herself with no assistance from a helper. 5-Set-up or Clean-up Assistance-helper sets up or cleans up; patient completes activity. [place] assists only prior to or following the activity. 4-Supervision or Touching Assistance-helper provides verbal cues and/or touching/steadying and/or contact guard assistance as patient completes activity. Assistance may be provided throughout the activity or intermittently. 3-Partial/Moderate Assistance-helper does LESS THAN HALF the effort. [place] lifts, holds or supports trunk or limbs, but provides less than half the effort. 2-Substantial/Maximal Assistance-helper does MORE THAN HALF the effort. [place] lifts or holds trunk or limbs and provides more than half the effort. 3-Omiquybmw-zkeszl does ALL the effort. Patient does none of the effort to complete the activity. Or, the assistance of 2 or more helpers is required for the patient to complete the activity. If activity was not attempted, code reason: 7-Patient Refused. 9-Not Applicable-not attempted and the patient did not perform the activity before the current illness, exacerbation or injury. 10-Not Attempted due to Environmental Limitations-(lack of equipment, weather restraints, etc.). 88-Not Attempted due to Medical Conditions or Safety Concerns. Self Care: Dependent Functional Cognition: Needed Some Help DME/Equipment: Shower DME/Equipment Comments w/c shower chair Drive Self: No OT Current Status Subjective Pt denies any pain. Agreeable to eval. Appearance Pt left supine in bed, all needs within reach. RN notified. Mental Status/Objective Patient Orientation: Person, Confused, Place Attachments: Garrett Catheter, IV Current Hand Dominance: Right Upper Extremity ROM Bilateral shoulder: 3/4 Elbow-distally WFL Upper Extremity Strength shoulder: 3/5 Elbow-distally: 3+-4/5 ADL-Treatment Eating (QC): 4 Lower Body Dressing (QC): 1 On/Off Footwear (QC): 1 Toileting Hygiene (QC): 1 Pt supine in bed at OT arrival. Dep to roll R/L with assist to reach across midline for bedrail. Per PT note, pt is Assist x2 to sit EOB, which patient reports is his baseline. PT verbalizes that he spends most days in the bed and is dependent for all toileting, dressing and bathing tasks. Pt was able to demonstrate ability to feed self by bringing hand to mouth. Anticipate set up assist needed. Pt is at baseline for all ADLS/mobility, thus no further skilled OT services needed at this time. Pt in agreement. Education OT Patient Education: Correct positioning, Exercise program, Modified ADL techniques, Purpose of tx/functional activities, Rehab process, Transfer techniques Teaching Recipient: Patient Teaching Methods: Discussion Response to Teaching: Reinforcement Needed OT Casing Cleaner Goals Senior Care Goals 1=Demonstrate adherence to instructed precautions during ADL tasks. 2=Patient will verbalize/demonstrate understanding of assistive devices/modifications for ADL. 3=Patient will improve strength/tolerance for activity to enable patient to perform ADL's. OT Education/Plan Problem List/Assessment Assessment: No Skilled OT Needs ID'd Pt is at baseline for all ADLs and mobility Discharge Recommendations Plan/Recommendations: Discharge/Goals Met Therapy Discharge Recommendati: 24 Hour Supervision Comment Per chart, hospice consult ordered. Target Placement Return to assisted with continued assist from staff Treatment Plan/Plan of Care Treatment,Training & Education: Yes Patient would benefit from OT for education, treatment and training to promote independence in ADL's, mobility, safety and/or upper extremity function for ADL' s. Plan of Care: Functional Mobility, OTHER Comment Discharge from OT, pt at baseline Treatment Duration: Mar 03, 2021 Frequency: 1 time per week Estimated Hrs Per Day: .25 hour per day Agreement: Yes Rehab Potential: Poor Time/GCodes Start Time: 10:41 Stop Time: 10:57 Total Time Billed (hr/min): 16 Billed Treatment Time 1, Karly Garcia OT Mar 03, 2021 11:03
[2021-03-03] MEDS: FLUCONAZOLE 200 MG/100 ML 50 ML, EMPTY IV BAG (PVC) 1 EA IV SCH ×2 (11:18)
[2021-03-03 12:00] VITALS: BP 180/76
--- NOTE | 2021-03-03 13:08 | Progress Note ---
Subjective Subjective/Events-last exam Afebrile, he is really wanting to go home. Denies any other concerns. Focused Exam Lactate Level 02/28/21 14:29: Lactic Acid Level 2.03*H 02/28/21 16:53: Lactic Acid Level 1.95 Time of Focused Exam: 11:30 Objective Exam Last Set of Vital Signs Vital Signs Date Time Temp Pulse Resp B/P (MAP) Pulse Ox O2 Delivery O2 Flow Rate FiO2 03/03/21 08:00 35.4 93 20 132/69 (90) 94 Room Air 03/03/21 03:21 4.00 03/01/21 05:31 97 Capillary Refill : Less Than 3 Seconds I&O Intake and Output 03/03/21 00:00 Intake Total 3550 ml Output Total 5200 ml Balance -1650 ml Intake Oral 3530 ml IV Total 20 ml Output Urine Total 5200 ml # [place] 1 General: Alert, No Acute Distress Lungs: Clear to Auscultation, Normal Air Movement Heart: Regular Rate, No Murmurs Abdomen: Normal Bowel Sounds, No Tenderness, Other (mild distension) Extremities: No Edema Neuro: Normal Speech Psych/Mental Status: Other (oriented to self only) Results/Procedures Lab Laboratory Tests 03/02/21 15:30: Glucometer 36*L 03/02/21 16:00: Glucometer 30*L 03/02/21 16:32: Glucometer 57*L 03/02/21 19:08: Glucometer 67L 03/02/21 23:47: Glucometer 219H 03/03/21 05:14: Glucometer 216H 03/03/21 05:26: White Blood Count 15.7H, Red Blood Count 3.82L, Hemoglobin 10.8L, Hematocrit 36L , Mean Corpuscular Volume 93, Mean Corpuscular Hemoglobin 28, Mean Corpuscular Hemoglobin Concent 30L, Red Cell Distribution Width 15.6H, Platelet Count 614H, Mean Platelet Volume 9.9, Immature Granulocyte % (Auto) 1, Neutrophils (%) (Auto) 87H, Lymphocytes (%) (Auto) 5L, Monocytes (%) (Auto) 4, Eosinophils (%) (Auto) 4, Basophils (%) (Auto) 0, Neutrophils # (Auto) 13.6H, Lymphocytes # (Auto) 0.7L, Monocytes # (Auto) 0.7, Eosinophils # (Auto) 0.6H, Basophils # (Auto) 0.0, Immature Granulocyte # (Auto) 0.1, Sodium Level 142, Potassium Level 4.0, Chloride Level 111H, Carbon Dioxide Level 20L, Anion Gap 11, Blood Urea Nitrogen 17, Creatinine 0.74, Estimat Glomerular Filtration Rate 102, BUN/Creatinine Ratio 23, Glucose Level 225H, Calcium Level 9.6, Corrected Calcium 10.2H, Total Bilirubin 0.3, Aspartate Amino Transf (AST/SGOT) 92H, Alanine Aminotransferase (ALT/SGPT) 86H, Alkaline Phosphatase 101, Total Protein 7.0, Albumin 3.2 03/03/21 11:07: Glucometer 155H Microbiology 02/28/21 Blood Culture - Preliminary, Resulted No growth 02/28/21 Urine Culture - Final, Complete YEAST Assessment/Plan Assessment/Plan (1) Severe sepsis Status: Acute Assessment & Plan: Secondary to pneumonia, initially improving some, but WBC increased somewhat today. (2) RLL pneumonia Status: Acute Assessment & Plan: On cefepime, Leukocytosis resolved, stable on room air. (3) UTI (urinary tract infection) due to urinary indwelling catheter Status: Acute Assessment & Plan: Culture with only yeast. Is on fluconazole, but with increasing LFTs and unclear if truly pathogenic, will d/c. Qualifiers: Qualified Codes: T83.511A - Infection and inflammatory reaction due to indwelling urethral catheter, initial encounter; N39.0 - Urinary tract infe ction, site not specified (4) Acute renal failure Status: Resolved Assessment & Plan: Secondary to sepsis, resolved overnight after admission. (5) Dementia Status: Chronic (6) Debility Status: Chronic (7) Hypertension Status: Chronic Qualifiers: Qualified Codes: I10 - Essential (primary) hypertension (8) Anemia Status: Chronic Assessment & Plan: Stable, suspect anemia of chronic disease. (9) Diabetes mellitus, type 2 Status: Chronic (10) Elevated liver enzymes Status: Acute Assessment & Plan: Uncertain etiology, worsening in spite of treatment of sepsis. Stop fluconazole and follow. (11) DVT prophylaxis Status: Acute Assessment & Plan: Apixaban PATRICK MACK MD Mar 03, 2021 13:08
[2021-03-03 16:00] VITALS: BP 158/94
[2021-03-03] MEDS: AtorvaSTATin TABLET 10 MG TABLET PO SCH (17:15)
[2021-03-03 20:00] VITALS: BP 137/77
[2021-03-03] MEDS ORDERED: D5 NS 1000 ML IV SOLUTION 1,000 ML IV ONE (21:13)
[2021-03-03] MEDS ORDERED: D5 NS 1000 ML IV SOLUTION 1,000 ML IV SCH (21:15)
[2021-03-03 23:06] VITALS: BP 135/72
[2021-03-04] MEDS: CEFEPIME 1,000 MG/SWFI 10 ML IV PUSH IV SCH ×6 (00:33→12:52)
[2021-03-04 03:10] VITALS: BP 108/72
[2021-03-04] MEDS: inSUlin ASPART (NovoLOG) 1 UNIT/0.01 ML (CHARGE PER UNIT) SC SCH ×2 (06:53→11:53)
[2021-03-04] MEDS: DOCUSATE SODIUM 100 MG (COLACE) CAP PO SCH ×2 (06:53→12:52)
[2021-03-04] MEDS: metFORMIN XR 500 MG (GLUCOPHAGE XR) TAB PO SCH ×2 (06:56→12:52)
[2021-03-04] MEDS: APIXABAN 5 MG (ELIQUIS) TABLET PO SCH ×2 (06:56→12:52)
[2021-03-04] MEDS: TROSPIUM 20 MG (SANCTURA) TAB PO SCH (06:56)
[2021-03-04] MEDS: GABAPENTIN 300 MG (NEURONTIN) CAP PO SCH ×3 (06:56→12:52)
[2021-03-04] MEDS ORDERED: inSUlin ASPART (NovoLOG) 1 UNIT/0.01 ML (CHARGE PER UNIT) SC ONE (07:00)
[2021-03-04] MEDS ORDERED: NS IV 1000 ML 1,000 ML IV SCH (07:00)
[2021-03-04 07:25] VITALS: BP 109/72
[2021-03-04 08:18] LABS: BASOPHILS % (AUTO) 0 % (0-10); EOSINOPHILS # (AUTO) 0.4 10^3/uL (0.0-0.3); EOSINOPHILS % (AUTO) 3 % (0-10); HEMATOCRIT 36 % (40-54); HEMOGLOBIN 11.1 g/dL (13.3-17.7); LYMPHOCYTES # (AUTO) 0.7 10^3/uL (1.0-4.0); LYMPHOCYTES % (AUTO) 4 % (12-44); MEAN CORPUSCULAR HEMOGLOBIN 28 pg (25-34); MEAN CORPUSCULAR HGB CONC 31 g/dL (32-36); MEAN CORPUSCULAR VOLUME 92 fL (80-99); MEAN PLATELET VOLUME 9.5 fL (9.0-12.2); MONOCYTES # (AUTO) 0.7 10^3/uL (0.0-1.0); MONOCYTES % (AUTO) 5 % (0-12); NEUTROPHILS # (AUTO) 14.3 10^3/uL (1.8-7.8); NEUTROPHILS % (AUTO) 88 % (42-75); PLATELET COUNT 668 10^3/uL (130-400); WHITE BLOOD COUNT 16.4 10^3/uL (4.3-11.0)
[2021-03-04] MEDS: ACETAMINOPHEN 325 MG TABLET PO SCH (08:22)
[2021-03-04] MEDS: FINASTERIDE (PROSCAR) 5 MG TAB PO SCH (08:22)
[2021-03-04] MEDS: ASPIRIN E.C. 81 MG (ECOTRIN) TAB PO SCH (08:22)
[2021-03-04] MEDS: ARTIFICAL TEARS 0.4 ML UNIT DOSE (REFRESH PLUS) OU SCH (08:22)
[2021-03-04] MEDS: LORATADINE (CLARITIN) 10 MG TAB PO SCH (08:22)
[2021-03-04] MEDS: A & D OINTMENT 42.5 GM TUBE TOP SCH (08:23)
[2021-03-04 08:39] LABS: ALBUMIN 3.1 GM/DL (3.2-4.5); BILIRUBIN,TOTAL 0.3 MG/DL (0.1-1.0); CALCIUM 9.4 MG/DL (8.5-10.1); CREATININE SERUM 0.76 MG/DL (0.60-1.30); POTASSIUM 3.6 MMOL/L (3.6-5.0); TOTAL PROTEIN 6.6 GM/DL (6.4-8.2)
--- NOTE | 2021-03-04 10:24 | Physical Therapy Daily Note ---
PT Daily Note-Current Subjective Patient reluctantly agrees to reposition up in bed. Adamantly declined OOB or EOB activity. Transfers SCALE: Activities may be completed with or without assistive devices. 7-Gqfuajctye-mlnlfdq completes the activity by him/herself with no assistance from a helper. 5-Set-up or Clean-up Assistance-helper sets up or cleans up; patient completes activity. [place] assists only prior to or following the activity. 4-Supervision or Touching Assistance-helper provides verbal cues and/or touching/steadying and/or contact guard assistance as patient completes activity. Assistance may be provided throughout the activity or intermittently. 3-Partial/Moderate Assistance-helper does LESS THAN HALF the effort. [place] lifts, holds or supports trunk or limbs, but provides less than half the effort. 2-Substantial/Maximal Assistance-helper does MORE THAN HALF the effort. [place] lifts or holds trunk or limbs and provides more than half the effort. 9-Wgknbiump-snmeyn does ALL the effort. Patient does none of the effort to complete the activity. Or, the assistance of 2 or more helpers is required for the patient to complete the activity. If activity was not attempted, code reason: 7-Patient Refused. 9-Not Applicable-not attempted and the patient did not perform the activity before the current illness, exacerbation or injury. 10-Not Attempted due to Environmental Limitations-(lack of equipment, weather restraints, etc.). 88-Not Attempted due to Medical Conditions or Safety Concerns. Roll Left & Right (QC): 1 (x 2) Assessment Dependent assist to reposition up in bed and with rolling. PT [employer] Operator Goals Mcfp Goals PT [employer]ending [employer] Operator Goals Time Frame: Mar 10, 2021 Roll Left & Right (QC): 3 Sit to Lying (QC): 2 Lying-Sitting on Side/Bed(QC): 2 PT Plan Treatment/Plan Treatment Plan: Continue Plan of Care Treatment Plan: Bed Mobility, Education, Functional Activity [place], Functional Strength, Safety, Therapeutic Exercise, Transfers Treatment Duration: Mar 10, 2021 Frequency: 6 times per week Time/GCodes Time In: 810 Time Out: 822 Total Billed Treatment Time: 12 Total Billed Treatment 1 visit FA 12 min GONZALO MILIAN PT Mar 04, 2021 10:24
[2021-03-04 11:20] VITALS: BP 93/61
[2021-03-04] MEDS ORDERED: INSU100I29 SC (13:10)
[2021-03-04] MEDS ORDERED: INSU100V SC (13:10)
[2021-03-04] MEDS ORDERED: CEFD300C3 PO (13:10)
--- NOTE | 2021-03-04 13:21 | Discharge Summary ---
Discharge Summary Hospital Course Problems/Diagnosis: (1) Severe sepsis Status: Acute Assessment & Plan: 03/03- Secondary to pneumonia, initially improving some, but WBC increased somewhat today. 03/04- WBC continued to worsen, blood pressure decreasing and patient diaphoretic and with intermittently worsened work of breathing as well as worsening tachycardia. However, patient declined further testing (CT chest, labs) and had loss of IV access and declined replacement. His daughter came in and talked with him as well, and she and his sister agree that he is aware he may get worse if he goes home without further evaluation and treatment, but that is his desire and they are okay with that. Given his persistently worsening clinical status, discussed possibility of hospice as without further work-up of underlying issues, I do suspect he will continue to progress in a downward trajectory and anticipate end of life in less than 6 months, maybe even within a short time frame if clinical course continues as currently is progressing. Family unde rstands this and are okay with following his wishes to be sent back to [place] without further work-up or treatment. He was discharged with 5 further days of antibiotic to complete treatment. (2) RLL pneumonia Status: Acute Assessment & Plan: On cefepime, Leukocytosis had resolved but worsened again as noted above, intermittently on supplemental oxygen. Had empyema in right lower lung within the year requiring drainage and that did not have malignant cells, but given persistent location of pneumonia and his worsening status with increased leukocytosis, thrombocytosis, concern for underlying mass persists, ordered chest CT, but he declined. (3) UTI (urinary tract infection) due to urinary indwelling catheter Status: Acute Assessment & Plan: Culture with only yeast. Is on fluconazole, but with increasing LFTs and unclear if truly pathogenic, will d/c. Qualifiers: Qualified Codes: T83.511A - Infection and inflammatory reaction due to indwelling urethral catheter, initial encounter; N39.0 - Urinary tract infection, site not specified (4) Acute renal failure Status: Resolved Resolution Date/Time: 03/01/21 @ 13:14 Assessment & Plan: Secondary to sepsis, resolved overnight after admission. (5) Dementia Status: Chronic (6) Debility Status: Chronic (7) Hypertension Status: Chronic Assessment & Plan: With low/normal BP during this admission, did not resume all home BP meds. Qualifiers: Qualified Codes: I10 - Essential (primary) hypertension (8) Anemia Status: Chronic Assessment & Plan: Stable, suspect anemia of chronic disease. (9) Diabetes mellitus, type 2 Status: Chronic Assessment & Plan: With hypoglycemia during stay requiring D5 infusion, decrea sed insulin doses on d/c. Qualifiers: (10) Elevated liver enzymes Status: Acute Assessment & Plan: Uncertain etiology, worsening in spite of treatment of sepsis. Stop fluconazole and follow. Considered further work-up, but patient declines further treatment at this time. Hospital Course Date of Admission: Feb 28, 2021 at 11:40 Admission Diagnosis : Family Physician/Provider: Kylie Stevenson Date of Discharge: 03/04/21 Discharge Diagnosis: See problem list Hospital Course: See problem list Labs and Pending Lab Test: Laboratory Tests 03/03/21 15:26: Glucometer 158H 03/03/21 20:15: Glucometer 28*L 03/03/21 20:42: Glucometer 35*L 03/03/21 21:01: Glucometer 42*L 03/03/21 21:46: Glucometer 75 03/04/21 05:49: Glucometer 141H 03/04/21 08:00: White Blood Count 16.4H, Red Blood Count 3.92L, Hemoglobin 11.1L, Hematocrit 36L , Mean Corpuscular Volume 92, Mean Corpuscular Hemoglobin 28, Mean Corpuscular Hemoglobin Concent 31L, Red Cell Distribution Width 15.8H, Platelet Count 668H, Mean Platelet Volume 9.5, Immature Granulocyte % (Auto) 1, Neutrophils (%) (Auto) 88H, Lymphocytes (%) (Auto) 4L, Monocytes (%) (Auto) 5, Eosinophils (%) (Auto) 3, Basophils (%) (Auto) 0, Neutrophils # (Auto) 14.3H, Lymphocytes # (Auto) 0.7L, Monocytes # (Auto) 0.7, Eosinophils # (Auto) 0.4H, Basophils # (Auto) 0.0, Immature Granulocyte # (Auto) 0.1 03/04/21 08:10: Sodium Level 143, Potassium Level 3.6, Chloride Level 110H, Carbon Dioxide Level 20L, Anion Gap 13, Blood Urea Nitrogen 14, Creatinine 0.76, Estimat Glomerular Filtration Rate 99, BUN/Creatinine Ratio 18, Glucose Level 210H, Calcium Level 9.4, Corrected Calcium 10.1, Total Bilirubin 0.3, Aspartate Amino Transf (AST/SGOT) 34, Alanine Aminotransferase (ALT/SGPT) 58H, Alkaline Phosphatase 94, Total Protein 6.6, Albumin 3.1L 03/04/21 11:17: Glucometer 211H Microbiology 02/28/21 Blood Culture - Preliminary, Resulted No growth 02/28/21 Urine Culture - Final, Complete YEAST Home Meds Active Cefdinir 300 Mg Capsule 300 Mg PO BID 5 Days Levemir Flextouch (Insulin Detemir) 100 Unit/1 Ml Insuln.pen 15 Units SC DAILY Humalog (Insulin Lispro) 100 Unit/1 Ml Vial 5 Units SC 0600,1000,1400 Reported A and D Ointment (Vits A and D/White Pet/Lanolin) 42.5 Gm Oint...g. 1 Applic TP BID APPLY TO WOUND ON PENIS Artificial Tears 15 Ml Soln 1 Drop OU BID Ciprofloxacin HCl 250 Mg Tablet 250 Mg PO BID FILLED 02-24-2021 #14/7 DAY SUPPLY Cepacol Sore Throat Lozenge (Benzocaine/Menthol) 1 Each Lozenge 1 Each MM UD PRN Enalapril Maleate 20 Mg Tablet 20 Mg PO 0600,1400 HOLD IF BP <80/50 OR >180/110 AND/OR BP <50 OR >110 Eliquis (Apixaban) 5 Mg Tablet 5 Mg PO 0600,1400 Solifenacin Succinate 5 Mg Tablet 5 Mg PO DAILY Lexapro (Escitalopram Oxalate) 5 Mg Tablet 5 Mg PO DAILY Systane Balance (Propylene Glycol) 10 Ml Drops 1 Drop OU Q4H PRN Albuterol Sulfate 2.5 Mg/3 Ml Vial.neb 3 Ml NEB Q4H PRN Neurontin (Gabapentin) 300 Mg Capsule 300 Mg PO 0600,1000,1400 Metoprolol Tartrate 25 Mg Tablet 25 Mg PO 0600,1400 HOLD IF SBP <90, PULSE <60 ON AM DOSE Metformin HCl ER (Metformin HCl) 500 Mg Tab.er.24h 1,000 Mg PO 0600,1400 TAKES 2 (500MG) TABS Farxiga (Dapagliflozin Propanediol) 10 Mg Tablet 10 Mg PO DAILY Cetirizine HCl 10 Mg Tablet 10 Mg PO DAILY Amlodipine Besylate 10 Mg Tablet 10 Mg PO DAILY Tylenol (Acetaminophen) 325 Mg Tablet 650 Mg PO DAILY TAKES 2 (325MG) TABS Finasteride 5 Mg Tablet 5 Mg PO DAILY Myrbetriq (Mirabegron) 50 Mg Tab.er.24h 50 Mg PO DAILY Miralax (Polyethylene Glycol 3350) 17 Gm Powd.pack 17 Gm PO Q12H PRN Milk of Magnesia (Magnesium Hydroxide) 400 Mg/5 Ml Oral.susp 30 Ml PO DAILY PRN Loperamide (Loperamide HCl) 2 Mg Capsule PO UD PRN TAKE 2 CAPSULES AFTER FIRST LOOSE STOOL THEN TAKE 1 CAPSULE AFTER EACH SUBSEUENT LOOSE STOOL. MAX 4 CAPS IN 24 HOURS Atorvastatin Calcium 10 Mg Tablet 10 Mg PO 1600 Flomax (Tamsulosin HCl) 0.4 Mg Cap 0.4 Mg PO 1700 Colace (Docusate Sodium) 100 Mg Capsule 100 Mg PO 0600,1400 Tylenol (Acetaminophen) 325 Mg Tablet 650 Mg PO Q4H PRN Biofreeze (Menthol) 118 Ml Gel..ml. 1 Applic TP Q6H PRN Aspirin EC (Aspirin) 81 Mg Tablet. 81 Mg PO DAILY Assessment/Pt DC Instructions Discharging per patient request and with family agreement in alignment with his goals of care, but is not clinically improved, has had recurrent admissions with sepsis, severe sepsis over the last year and he does not want to be in the hospital anymore or have labs drawn or further tests done, referring for hospice evaluation at intermediate. Discharge Diet: ADA Diet Activity as Tolerated: Yes Discharge Physical Examination Allergies: Coded Allergies: No Known Drug Allergies (Unverified , 01/03/19) General Appearance: Mild Distress, Other (diaphoretic) Respiratory: Crackles Cardiovascular: Tachycardia Gastrointestinal: Distended Neurologic/Psychiatric: Alert, Other (irritable) PATRICK MACK MD Mar 04, 2021 13:16
== END 2021-03-04 15:00 | DRG 871 ==
LOC: ER 09:20 → CSD 11:40 → 4TH 03-01 15:00
PROVIDERS: ADMIT Internal Medicine; ATTEND Family Medicine
DX: A41.9 Sepsis, unspecified organism (principal); J18.9 Pneumonia, unspecified organism; T83.511A Infection and inflammatory reaction due to indwelling urethral catheter, initial encounter; N39.0 Urinary tract infection, site not specified; N17.9 Acute kidney failure, unspecified; R65.20 Severe sepsis without septic shock; F03.90 Unspecified dementia, unspecified severity, without behavioral disturbance, psychotic disturbance, mood disturbance, and anxiety; R53.81 Other malaise; I10 Essential (primary) hypertension; D64.9 Anemia, unspecified; E11.9 Type 2 diabetes mellitus without complications; N18.9 Chronic kidney disease, unspecified; E87.6 Hypokalemia; R45.3 Demoralization and apathy; M19.90 Unspecified osteoarthritis, unspecified site; Z79.82 Long term (current) use of aspirin; Z79.4 Long term (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; J43.9 Emphysema, unspecified
CPT/HCPCS: 36415; 51702; 71045; 80053; 81000; 82947; 83605; 83735; 84145; 85007; 85025; 85027; 85610; 85730; 87040; 87088; 93041; 94760; 96361; 96374

== ENCOUNTER → 2021-03-14 | Outpatient (CLI) | payer MEDICARE, OTHER, MEDICAID ==
[~2021-03-14] MED LIST changes: +CIPR250T3 PO; +HOLD METFORMIN - RECEIVED CONTRAST 20 ML VIAL IV SCH; +IOHEXOL 350 MG/ML 100 ML (OMNIPAQUE 350) VIAL IV ONE; +NS 100 ML (IVPB) BAG IV ONE; +POLY15DR27 OU; +VITS42.53 TP
[2021-03-14 08:44] LABS: ALBUMIN 3.7 GM/DL (3.2-4.5)
[2021-03-14 08:45] LABS: POTASSIUM 4.6 MMOL/L (3.6-5.0)
[2021-03-14 08:46] LABS: CALCIUM 9.8 MG/DL (8.5-10.1)
[2021-03-14 08:47] LABS: TOTAL PROTEIN 7.1 GM/DL (6.4-8.2)
[2021-03-14 08:49] LABS: BILIRUBIN,TOTAL 0.4 MG/DL (0.1-1.0)
[2021-03-14 08:51] LABS: CREATININE SERUM 0.81 MG/DL (0.60-1.30)
--- NOTE | 2021-03-14 11:07 | Diagnostic Imaging Report ---
PROCEDURE: CT chest with contrast only. TECHNIQUE: Multiple contiguous axial images were obtained through the chest after administration of intravenous contrast. Auto Exposure Controls were utilized during the CT exam to meet ALARA standards for radiation dose reduction. INDICATION: Abnormal chest x-ray. COMPARISON: Radiographs dated 02/28/[address] dated 09/01/2020 and 01/20/2014 FINDINGS: No significant adenopathy within the chest. Scattered vascular calcifications are present, particularly within the coronary arteries. No dissection of the thoracic aorta, though mild aneurysmal dilatation of the ascending thoracic aorta is present measuring up to 4.0 cm. The heart is mildly enlarged. No significant pericardial effusion. Bilateral pleural thickening is identified. Previously noted pleural effusions have essentially resolved since the prior examination. The trachea is patent. No pneumothorax. Mild nodularity is identified within the left lower lobe, to include a pleural-based pulmonary nodule measuring up to 1.3 cm. Dense consolidation is identified within this region on the prior examination with overall density and opacity appearing improved though persisting focal nodules remain. Linear interstitial opacities are present within the right lower lobe, corresponding to recent radiographs. These opacities appear significantly improved though not completely resolved when compared to the prior CT from August 2020. No additional new focal pulmonary nodule. No saddle pulmonary embolus. Bilateral gynecomastia. Layering sludge and/or stones within the gallbladder without adjacent inflammatory stranding. Partially visualized upper abdomen is otherwise unremarkable. Chronic appearing left humeral fracture is partially visualized within the mid shaft. This is not optimally visualized. Scattered osseous degenerative changes. IMPRESSION: Focal opacities and nodular densities within the bilateral lower lobes. These findings appear significantly improved when compared to August 2020. Therefore, findings are felt to relate to sequelae of prior infection or injury with resulting persisting atelectasis and/or scar. Mild persisting active infiltrate not completely excluded. However, a follow-up CT of the chest is recommended in 3 months to reevaluate to ensure that the more discrete nodular densities within the left lower lobe do not relate to underlying malignancy. Mild aneurysmal dilatation of the ascending thoracic aorta. Sludge and/or stones within the gallbladder. Partially visualized mid left humeral fracture. This appears at least subacute to chronic in nature. Recommend clinical correlation. If further evaluation is desired, then dedicated radiographs of the left humerus would be recommended. Dictated by: Dictated on workstation # [id number]
== END ==
LOC: RAD 08:00
PROVIDERS: ATTEND Nurse Practitioner Community Health
DX: R91.8 Other nonspecific abnormal finding of lung field (principal); I71.2 Thoracic aortic aneurysm, without rupture
CPT/HCPCS: 36415; 71260; 80053

== ENCOUNTER 2021-11-16 14:20 | Emergency (ER) | payer MEDICARE, OTHER, MEDICAID ==
[~2021-11-16] VITALS: Ht 190 cm; Wt 160.0 kg
[~2021-11-16 14:20] MED LIST changes: -BENZ1LOZ61 MM; +BENZ1LOZ74 MM; +CLIN-144 PO; -CLIN300C12 PO; -HOLD METFORMIN - RECEIVED CONTRAST 20 ML VIAL IV SCH; -IOHEXOL 350 MG/ML 100 ML (OMNIPAQUE 350) VIAL IV ONE; -NS 100 ML (IVPB) BAG IV ONE
[2021-11-16 14:27] VITALS: BP 148/85
--- NOTE | 2021-11-16 14:46 | ED General ---
General Chief Complaint: Respiratory Problems Stated Complaint: GENERAL Source of Information: Patient Exam Limitations: Physical Impairments (?dementia) History of Present Illness Date Seen by Provider: November 16, 2021 Time Seen by Provider: 14:35 Initial Comments Patient is an 81-year-old male who presents from a local assisted after what sounds like a choking spell. Patient states that he "choked on an orange". He states the piece was too big. He remembers standing in the doorway looking for a chief of hospital medicine and then he found himself here. He cannot really provide any more history of the event. He is asking me to take all of his monitoring equipment off and he wants to just go home. He denies any chest pain, nausea. He is not having abdominal pain. He does not have a headache. He states that he feels 100% fine. He is very hard of hearing and when I explained to him the reason why I have to ask him questions it so that I get an accurate and clear picture of what brought him to the emergency department. At this point he became irate and upset and more frustrated. Review of systems difficult secondary to the patient's irritation Timing/Duration: 1 Hour Severity: Moderate Associated Systoms: Denies Symptoms Allergies and Home Medications Allergies Coded Allergies: No Known Drug Allergies (Unverified , 01/03/19) Patient Home Medication List Home Medication List Reviewed: Yes Acetaminophen (Tylenol) 325 Mg Tablet, 650 MG PO Q4H PRN for PAIN-MILD (1-4) OR TEMPATURE, (Reported) Entered as Reported by: JOSE BURR on 01/03/19 1418 Acetaminophen (Tylenol) 325 Mg Tablet, 650 MG PO DAILY, (Reported) Entered as Reported by: JOSE BURR on 01/03/19 1418 Albuterol Sulfate (Albuterol Sulfate) 2.5 Mg/3 Ml Vial.neb, 3 ML NEB Q4H PRN for SHORTNESS OF BREATH, (Reported) Entered as Reported by: ELVIS GOMEZ on 09/02/20 1307 Apixaban (Eliquis) 5 Mg Tablet, 5 MG PO 0600,1400, (Reported) Entered as Reported by: ELVIS GOMEZ on 01/13/21 0947 Artificial Tears (Artificial Tears) 15 Ml Soln, 1 DROP OU BID, (Reported) Entered as Reported by: ELVIS GOMEZ on 02/28/21 1607 Aspirin (Aspirin EC) 81 Mg Tablet.dr, 81 MG PO DAILY, (Reported) Entered as Reported by: JOSE BURR on 01/03/19 141 Atorvastatin Calcium (Atorvastatin Calcium) 10 Mg Tablet, 10 MG PO 1600, (Reported) Entered as Reported by: JOSE BURR on 01/03/19 141 Benzocaine/Menthol (Cepacol Sore Throat Lozenge) 1 Each Lozenge, 1 EACH MM UD PRN for COUGH, (Reported) Entered as Reported by: ELVIS GOMEZ on 01/13/21 0947 Cefdinir (Cefdinir) 300 Mg Capsule, 300 MG PO BID Prescribed by: PATRICK MACK on 03/04/21 1310 Cetirizine HCl (Cetirizine HCl) 10 Mg Tablet, 10 MG PO DAILY, (Reported) Entered as Reported by: ELVIS GOMEZ on 09/02/20 1307 Dapagliflozin Propanediol (Farxiga) 10 Mg Tablet, 10 MG PO DAILY, (Reported) Entered as Reported by: ELVIS GOMEZ on 09/02/20 130 Docusate Sodium (Colace) 100 Mg Capsule, 100 MG PO 0600,1400, (Reported) Entered as Reported by: JOSE BURR on 01/03/19 141 Escitalopram Oxalate (Lexapro) 5 Mg Tablet, 5 MG PO DAILY, (Reported) Entered as Reported by: IKE CARABALLO on 01/12/21 0211 Finasteride (Finasteride) 5 Mg Tablet, 5 MG PO DAILY, (Reported) Entered as Reported by: JOSE BURR on 01/03/19 141 Gabapentin (Neurontin) 300 Mg Capsule, 300 MG PO 0600,1000,1400, (Reported) Entered as Reported by: ELVIS GOMEZ on 09/02/20 130 Insulin Detemir (Levemir Flextouch) 100 Unit/1 Ml Insuln.pen, 15 UNITS SC DAILY Prescribed by: PATRICK MACK on 03/04/21 1310 Insulin Lispro (Humalog) 100 Unit/1 Ml Vial, 5 UNITS SC 0600,1000,1400 Prescribed by: PATRICK MACK on 03/04/21 1310 Loperamide HCl (Loperamide) 2 Mg Capsule, PO UD PRN for DIARRHEA, (Reported) Entered as Reported by: JOSE BURR on 01/03/19 141 Magnesium Hydroxide (Milk of Magnesia) 400 Mg/5 Ml Oral.susp, 30 ML PO DAILY PRN for CONSTIPATION-7TH LINE, (Reported) Entered as Reported by: JOSE BURR on 01/03/19 141 Menthol (Biofreeze) 118 Ml Gel..ml., 1 APPLIC TP Q6H PRN for SHOULDER PAIN, (Reported) Entered as Reported by: JOSE BURR on 01/03/19 141 Metformin HCl (Metformin HCl ER) 500 Mg Tab.er.24h, 1,000 MG PO 0600,1400, (Reported) Entered as Reported by: ELVIS GOMEZ on 09/02/20 130 Metoprolol Tartrate (Metoprolol Tartrate) 25 Mg Tablet, 25 MG PO 0600,1400, (Reported) Entered as Reported by: ELVIS GOMEZ on 09/02/20 130 Mirabegron (Myrbetriq) 50 Mg Tab.er.24h, 50 MG PO DAILY, (Reported) Entered as Reported by: JOSE BURR on 01/03/191417 Polyethylene Glycol 3350 (Miralax) 17 Gm Powd.pack, 17 GM PO Q12H PRN for CONSTIPATION-2ND LINE, (Reported) Entered as Reported by: JOSE BURR on 01/03/19 141 Propylene Glycol (Systane Balance) 10 Ml Drops, 1 DROP OU Q4H PRN for DRY EYES, (Reported) Entered as Reported by: ELVIS GOMEZ on 09/02/20 1307 Solifenacin Succinate (Solifenacin Succinate) 5 Mg Tablet, 5 MG PO DAILY, (Reported) Entered as Reported by: IKE CARABALLO on 01/12/21 0211 Tamsulosin HCl (Flomax) 0.4 Mg Cap, 0.4 MG PO 1700, (Reported) Entered as Reported by: JOSE BURR on 01/03/19 141 Vits A and D/White Pet/Lanolin (A and D Ointment) 42.5 Gm Oint...g., 1 APPLIC TP BID, (Reported) Entered as Reported by: ELVIS GOMEZ on 02/28/21 1437 Review of Systems Review of Systems Constitutional: see HPI EENTM: other ("choked") Respiratory: no symptoms reported Cardiovascular: no symptoms reported Gastrointestinal: no symptoms reported Genitourinary: no symptoms reported Musculoskeletal: no symptoms reported Skin: no symptoms reported All Other Systems Reviewed Negative Unless Noted: Yes Past Zwsrajb-Mdewcy-Fmmkhi Hx Immunizations Up To Date Tetanus Booster (TDap): More than 5yrs Seasonal Allergies Seasonal Allergies: No Past Medical History Surgery/Hospitalization HX: C-SPINE SURGERY Surgeries: Yes (surgical debridement of chronic wounds) Orthopedic Respiratory: Yes (RESP FAILURE/SEPTIC SHOCK/PNEUMONIA) Pneumonia Cardiac: Yes (CHRONIC ISCHEMIC HEART DZ) Coronary Artery Disease, High Cholesterol, Hypertension Neurological: Yes (History of foot drop) Dementia Reproductive Disorders: No Genitourinary: Yes (INCONTINENT; INDWELLING PIERRE CATHETER) Bladder Infection, Renal Failure Gastrointestinal: Yes Chronic Constipation Musculoskeletal: Yes (chronic debility, does not walk) Arthritis, Foot Drop Endocrine: Yes (MORBID OBESITY) Diabetes, Insulin dep HEENT: Yes (DENTAL CARIES) Cataract Loss of Vision: Bilateral Hearing Impairment: Hard of Hearing, Bilateral Hearing Aide Cancer: No Psychosocial: No Integumentary: Yes (MULTIPLE WOUNDS; CANDIDIASIS) Blood Disorders: No Family Medical History Cardiovascular disease 19 MOTHER (CHF) Diabetes mellitus 19 MOTHER Prostate cancer 19 FATHER Heart Disease, Cancer, Diabetes, Hypertension ADMITTED 09/09/20 WITH SEPTIC SHOCK, RESPIRATORY FAILURE, PNEUMONIA ADMITTED 01/11/21 WITH SEPTIC SHOCK, PNEUMONIA, UTI, RESPIRATORY FAILURE Physical Exam Vital Signs Vital Signs - First Documented 11/16/21 14:27 Temp 35.9 Pulse 63 Resp 16 B/P (MAP) 148/85 (106) Pulse Ox 95 O2 Delivery Room Air Capillary Refill : Height, Weight, BMI Height: 6'2.00" Weight: 324lbs. 3.0oz. [id number]; 38.89 BMI Method:Stated General Appearance: No Apparent Distress, WD/WN, Obese Eyes: Bilateral Eye Normal Inspection HEENT: PERRL/EOMI, Other (Posterior pharynx reveals superficial abrasions consistent with the explanation of the nurse aide who removed the orange peel from his throat.) Neck: Normal Inspection Respiratory: Lungs Clear, Normal Breath Sounds, No Accessory Muscle Use, No Respiratory Distress, Other (Significantly diminished breath sounds throughout listening to the anterior lung mitchell. The patient cannot pull himself forward for me to listen to him over his back as he is too weak to sit forward. Quite belligerent when I asked him to change position in order to more thoroughly exa mine him.) Cardiovascular: Regular Rate, Rhythm Gastrointestinal: Non Tender, Soft, Other (Obese) Extremity: Normal Inspection Neurologic/Psychiatric: Alert, Oriented x3, No Motor/Sensory Deficits (Grumpy and upset), Normal Mood/Affect Skin: Normal Color, Warm/Dry Progress/Results/Core Measures Suspected Sepsis SIRS Temperature: Pulse: Respiratory Rate: Blood Pressure / Mean: Results/Orders Vital Signs/I&O 11/16/21 14:27 Temp 35.9 Pulse 63 Resp 16 B/P (MAP) 148/85 (106) Pulse Ox 95 O2 Delivery Room Air Capillary Refill : Progress Note : Time: 14:59 Progress Note Family members showed up and Mr. Quinones was much happier when they arrived. The family was able to tell me the story more accurately. Apparently a staff member at the assisted found him in his wheelchair slumped over, pale and diaphoretic and poorly responsive. The staff member attempted the Heimlich but due to his size was unable to perform it. She reached in manually into his throat and was able to remove the chunk of orange. She single-handedly saved his life. We discussed his vital signs and the fact that he has 0 complaints at this time. I did let the family know to have the staff at the assisted monitor him for any worsening shortness of breath throughout the evening. This is also communicated on his discharge paperwork. His oxygen saturations are 96/97%. He is demonstrating no increased work of breathing. He is adamant that he wants to go home. Family is also comfortable with this plan. All questions are sought and answered. Departure Impression Primary Impression: Choking due to food (regurgitated) Qualified Codes: T17.320A - Food in larynx causing asphyxiation, initial enc ounter Disposition: 01 HOME, SELF-CARE Condition: Stable Departure-Patient Inst. Decision time for Depature: 14:58 Referrals: [facility] (PCP) Primary Care Physician CONTRERAS QUINN (Family) Primary Care Physician Patient Instructions: Choking Add. Discharge Instructions: Resume prior home medications. Monitor throughout the evening for worsening signs of breathing difficulties. Return to the emergency department for any new, concerning or emergent complaints. Copy Copies To 1: [facility]/NING ABRAHAM MD November 16, 2021 14:46
== END 2021-11-16 16:14 | disposition home or self-care (01) ==
LOC: EDUNIT# 14:20 → ER 14:21
DX: T17.320A Food in larynx causing asphyxiation, initial encounter (principal); E11.9 Type 2 diabetes mellitus without complications; E66.01 Morbid (severe) obesity due to excess calories; Z68.38 Body mass index [BMI] 38.0-38.9, adult; Z79.4 Long term (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
CPT/HCPCS: 99283

== ENCOUNTER 2022-07-20 15:47 | Inpatient (IN) | payer MEDICARE, OTHER, MEDICAID ==
[~2022-07-20] VITALS: Ht 188 cm; Wt 119.4 kg
[~2022-07-20 15:47] MED LIST changes: -NYST15CR TP; +NYST15CR35 TP
[2022-07-20 16:27] VITALS: BP 104/100
[2022-07-20 19:00] VITALS: BP 164/87
[2022-07-20] MEDS ORDERED: LOSARTAN 50 MG (COZAAR) TAB PO NR (19:00)
[2022-07-20 20:00] VITALS: BP_SYST 142; BP_SYST 163; BP_DIAS 65; BP_DIAS 94
[2022-07-20] MEDS: GABAPENTIN 300 MG (NEURONTIN) CAP PO SCH (20:42)
[2022-07-20] MEDS: DONEPEZIL 10 MG (ARICEPT) TAB PO SCH (20:42)
[2022-07-20 20:43] VITALS: BP 139/63
[2022-07-20] MEDS: inSUlin ASPART (NovoLOG) 1 UNIT/0.01 ML (CHARGE PER UNIT) SC SCH (20:43)
[2022-07-20 22:00] VITALS: BP 143/72
[2022-07-20 22:27] VITALS: BP 139/63
[2022-07-20] MEDS ORDERED: RT-ALBUTEROL SULF 2.5 MG/3 ML PRE-MIX VIAL INH PRN (22:30)
[2022-07-21] VITALS (20 sets, daily range): BP systolic 115–186; BP diastolic 64–87
[2022-07-21 05:08] LABS: HEMATOCRIT 27 % (40-54); HEMOGLOBIN 7.3 g/dL (13.3-17.7); MEAN CORPUSCULAR HEMOGLOBIN 19 pg (25-34); MEAN CORPUSCULAR HGB CONC 27 g/dL (32-36); MEAN CORPUSCULAR VOLUME 71 fL (80-99); PLATELET COUNT 450 10^3/uL (130-400); WHITE BLOOD COUNT 5.9 10^3/uL (4.3-11.0)
[2022-07-21 05:18] LABS: ALBUMIN 3.7 GM/DL (3.2-4.5)
[2022-07-21 05:19] LABS: POTASSIUM 4.1 MMOL/L (3.6-5.0)
[2022-07-21 05:20] LABS: CALCIUM 9.2 MG/DL (8.5-10.1); INR 1.1 (0.8-1.4); PROTHROMBIN TIME PATIENT 14.3 SEC (12.2-14.7)
[2022-07-21 05:21] LABS: TOTAL PROTEIN 6.6 GM/DL (6.4-8.2)
[2022-07-21 05:23] LABS: BILIRUBIN,TOTAL 0.4 MG/DL (0.1-1.0)
[2022-07-21 05:25] LABS: CREATININE SERUM 0.72 MG/DL (0.60-1.30)
[2022-07-21] MEDS: inSUlin ASPART (NovoLOG) 1 UNIT/0.01 ML (CHARGE PER UNIT) SC SCH ×4 (05:44→21:04)
[2022-07-21] MEDS ORDERED: NS IV 1000 ML 2,000 ML ONE (08:24)
[2022-07-21] MEDS ORDERED: LIDOCAINE 1% INJ 20 ML VIAL ONE ×3 (08:24→13:58)
[2022-07-21] MEDS ORDERED: HEParin (CATH LAB) 1,000 ML IV ONE (08:24)
[2022-07-21] MEDS ORDERED: ceFAZolin INJECTION 1,000 MG ONE (08:24)
--- NOTE | 2022-07-21 09:17 | Cardiology History & Physical ---
HPI-Cardiology Cardiology Consultation Date of Consultation 07/21/22 Date of Admission Time Seen by Provider: 09:14 Indication: Complete heart block HPI 81 years old gentleman with history of debility. Has been having multiple syncope, had a Zio patch showing multiple episodes of complete heart block. Patient was seen in the office, has been having lethargy, having significant symptomatic bradycardia. Decided to admit the patient to the hospital and monitor him overnight. PMH-Cardiology Immunizations Up To Date Tetanus Booster (DTap): More than 5yrs Date of Pneumonia Vaccine: Mar 21, 2011 Date of Influenza Vaccine: Mar 23, 2022 Seasonal Allergies Seasonal Allergies: No Surgeries Yes (surgical debridement of chronic wounds) Orthopedic Respiratory Yes (RESP FAILURE/SEPTIC SHOCK/PNEUMONIA) Pneumonia Cardiovascular Yes (CHRONIC ISCHEMIC HEART DZ) High Cholesterol, Hypertension Neurological Yes (History of foot drop) Dementia Reproductive System Hx Reproductive Disorders: No Genitourinary Yes (INCONTINENT; INDWELLING PIERRE CATHETER) Bladder Infection, Renal Failure Gastrointestinal Yes Chronic Constipation Musculoskeletal Yes (chronic debility, does not walk) Arthritis, Foot Drop Endocrine Yes (MORBID OBESITY) Diabetes, Insulin dep HEENT Yes (DENTAL CARIES) Cataract Loss of Vision: Bilateral Hearing Impairment: Hard of Hearing, Bilateral Hearing Aide Cancer No Psychosocial No Integumentary Yes (MULTIPLE WOUNDS; CANDIDIASIS) Blood Transfusions No Social History Patient Social History Marrital Status: single Employed/Student: retired Have you traveled recently?: No Alcohol Use?: No Family Hx Significant Family History: Heart Disease, Cancer, Diabetes, Hypertension Family History: Cardiovascular disease 19 MOTHER (CHF) Diabetes mellitus 19 MOTHER Prostate cancer 19 FATHER ROS-Cardiology Review of Systems General: No Chills, No Night Sweats; Fatigue, Malaise; No Appetite HEENT: No Head Aches, No Visual Changes, No Eye Pain, No Ear Pain, No Dysphasia, No Sinus Congestion, No Post Nasal Drip, No Sore Throat Pulmonary: Dyspnea; No Cough, No Pleuritic Chest Pain Cardiovascular: Edema; No: Chest Pain, Palpitations, Orthopnea, Paroxysmal Noc. Dyspnea, Lt Headedness Gastrointestinal: No: Nausea, Vomiting, Abdominal Pain, Diarrhea, Constipation, Melena, Hematochezia Genitourinary: No Dysuria, No Frequency, No Incontinence, No Hematuria, No Retention Musculoskeletal: No: neck pain, shoulder pain, arm pain, back pain, hand pain, leg pain, foot pain Neurological: No: Weakness, Numbness, Incoordination, Change in speech, Confusion, Seizures Home Medications & Allergies Allergies: Coded Allergies: No Known Drug Allergies (Unverified , 01/03/19) Home Medication List Reviewed: Yes Exam-Cardiology Vital Signs Vital Signs Date Time Temp Pulse Resp B/P (MAP) Pulse Ox O2 Delivery O2 Flow Rate FiO2 07/21/22 07:39 36.4 71 17 115/64 (81) 99 Room Air 07/21/22 00:44 50.00 07/20/22 22:27 21 Exam General Appearance: Alert, Oriented X3, Cooperative, No Acute Distress HEENT: Atraumatic, PERRLA Respiratory: Clear to Auscultation, Normal Air Movement Cardiovascular: Regular Rate, Normal S1, Normal S2, Other (Systolic murmur, S3 is present) Abdominal: Normal Bowel Sounds, Soft, No Tenderness, No Hepatosplenomegaly, No Masses Extremities: No Clubbing, No Cyanosis, No Edema, Normal Pulses, No Tenderness/Swelling Skin: No Rashes, No Breakdown, No Significant Lesion Neuro: Normal Gait, Normal Speech, Strength at 5/5 X4 Ext, Normal Tone, Sensation Intact Psych/Mental Status: Mental Status NL, Mood NL Results Labs Labs Laboratory Tests 07/20/22 18:36: Glucometer 198H 07/20/22 20:27: Glucometer 271H 07/21/22 04:57: White Blood Count 5.9, Red Blood Count 3.84L, Hemoglobin 7.3L, Hematocrit 27L, Mean Corpuscular Volume 71L, Mean Corpuscular Hemoglobin 19L, Mean Corpuscular Hemoglobin Concent 27L, Red Cell Distribution Width 16.9H, Platelet Count 450H, Mean Platelet Volume 10.0, Prothrombin Time 14.3, INR Comment 1.1, Activated Partial Thromboplast Time 34, Sodium Level 141, Potassium Level 4.1, Chloride Level 107, Carbon Dioxide Level 23, Anion Gap 11, Blood Urea Nitrogen 20H, Creatinine 0.72, Estimat Glomerular Filtration Rate 92, BUN/Creatinine Ratio 28, Glucose Level 187H, Calcium Level 9.2, Corrected Calcium 9.4, Total Bilirubin 0.4, Aspartate Amino Transf (AST/SGOT) 9, Alanine Aminotransferase (ALT/SGPT) 10, Alkaline Phosphatase 78, Total Protein 6.6, Albumin 3.7, Thyroid Stimulating Hormone (TSH) 1.96 07/21/22 08:51: A/P-Cardiology Admission Diagnosis Coronary artery disease Syncope Complete heart block Hypertension Anemia Admission Status: Inpatient Order (span 2 midnights) Reason for Inpatient Admission: Complete heart block Assessment/Plan Coronary artery disease, mild irregularity in the distal LAD by cardiac catheterization in May 2013. Currently asymptomatic. I will continue monitoring, no changes are recommended Recurrent syncope, had negative tilt table test Had Zio patch which showed transient complete heart block, patient was symptomatic during the episode felt lightheaded and dizzy. Review of the Zio patch showed multiple episodes of complete heart block over the past week. Patient has been symptomatic having worsening symptoms. Patient was admitted and monitored overnight, having advanced high-grade AV block with multiple episodes of complete heart block and severe bradycardia Planning to proceed with dual-chamber pacemaker implantation Intermittent complete heart block. Symptomatic. Planning to proceed with pacemaker implantation. Anemia, patient has been maintained on Eliquis and aspirin. Evaluate stool for occult blood, anemia analyzer Consult hospitalist 2D Echo done August 2020 showing normal EF 60-65%, PA 40-45mmHg. Frequent atrial and ventricular premature contractions, short multiple runs of paroxysmal atrial tachycardia on Holter monitor done in 2013. Twelve-lead EKG done on July 07, 2022 showing sinus rhythm with complete heart block. Heart rate 50. Has been off beta-blockers. Planning to proceed with pacemaker Nonobstructive carotid artery stenosis per carotid duplex done April 2018, I will evaluate carotid ultrasound Hypertension, monitor blood pressure Hyperlipidemia- I will evaluate lipid profile. Left lower extremity erythema and edema- patient reports improvement. Underwent BLE arterial duplex 2017, negative for high grade stenosis. Continue to monitor. Diabetes mellitus. Managed by primary care physician. Chronic right bundle branch block Diabetic neuropathy. Chronic back pain. VALENTINA STRATTON MD Jul 21, 2022 09:17
[2022-07-21] MEDS: GABAPENTIN 300 MG (NEURONTIN) CAP PO SCH ×3 (09:24→20:08)
[2022-07-21] MEDS ORDERED: NS IV 500 ML 500 ML IV SCH (09:45)
[2022-07-21 09:48] LABS: ABSOLUTE RETIC # 79 10e9/uL (24-90); BASOPHILS # (AUTO) 0.1 10^3/uL (0.0-0.1); BASOPHILS % (AUTO) 1 % (0-10); EOSINOPHILS # (AUTO) 0.2 10^3/uL (0.0-0.3); EOSINOPHILS % (AUTO) 4 % (0-10); HEMATOCRIT 28 % (40-54); HEMOGLOBIN 7.5 g/dL (13.3-17.7); LYMPHOCYTES # (AUTO) 0.8 10^3/uL (1.0-4.0); LYMPHOCYTES % (AUTO) 14 % (12-44); MEAN CORPUSCULAR HEMOGLOBIN 19 pg (25-34); MEAN CORPUSCULAR HGB CONC 27 g/dL (32-36); MEAN CORPUSCULAR VOLUME 71 fL (80-99); MEAN PLATELET VOLUME 10.5 fL (9.0-12.2); MONOCYTES # (AUTO) 0.7 10^3/uL (0.0-1.0); MONOCYTES % (AUTO) 13 % (0-12); NEUTROPHILS # (AUTO) 3.9 10^3/uL (1.8-7.8); NEUTROPHILS % (AUTO) 68 % (42-75); PLATELET COUNT 464 10^3/uL (130-400); RETICULOCYTE % 2.04 % (0.50-2.40); WHITE BLOOD COUNT 5.7 10^3/uL (4.3-11.0)
[2022-07-21 09:53] LABS: ANISOCYTOSIS MODERATE; BAND NEUTROPHILS 0 %; BASOPHILS % (MANUAL) 3 %; EOSINOPHILS % (MANUAL) 3 %; HYPOCHROMASIA MODERATE; LYMPHOCYTES % (MANUAL) 12 %; MICROCYTOSIS SLIGHT; MONOCYTES % (MANUAL) 10 %; NEUTROPHILS % (MANUAL) 72 %; POLYCHROMASIA MODERATE
--- NOTE | 2022-07-21 11:04 | Consultation - Hospitalist ---
SAM,LENORA 07/21/22 1104: HPI History of Present Illness: HPI/Chief Complaint Mr. Quinones is an 81 year old male with a PMHx of HTN, HLD, DM, dementia, and urinary incontinence with an indwelling hassan catheter who has been admitted by Cardiology for management of complete heart block with pacemaker placement. Hospitalist service has been consulted for management of anemia with a Hgb of 7.5 on 07/21. Patient reports 2 weeks ago he experienced an episode of dizziness, but denies feeling faint or having presyncope or syncope since. Patient dwells in a nursing facility and uses a wheelchair. Patient denies SOA, CP, abdominal pain, nausea, vomiting, or diarrhea. The patient's daughter, Rosette, is present at bedside. The patient is agreeable to receive one unit of PRBC today with close monitoring. Fe and Vitamin B12 studies are pending. Thank you Dr. Esparza for this consult. Source: patient, family (daughter) Date Seen 07/21/22 Attending Physician [place] PCP Admitting Physician: Wicho Esparza MD Attending Physician: Wicho Esparza MD Referring Physician Dr. Esparza Date of Admission Jul 20, 2022 at 16:06 Home Medications & Allergies Home Medications Reviewed patient Home Medication Reconciliation performed by pharmacy medication reconciliations analytical lab technician and/or nursing. Patients Allergies have been reviewed. Allergies Allergies Coded Allergies No Known Drug Allergies (Unverified01/03/19) Past Mzpbskn-[id number]-Ugxlcm Hx Patient Social History Marrital Status: single Employed/Student: retired Tobacco Use?: No Use of E-Cig and/or Vaping dev: No Substance use?: No Alcohol Use?: No Pt feels they are or have been: No Immunizations Up To Date Date of Influenza Vaccine: Mar 23, 2022 Tetanus Booster (TDap): Less Than 5 Years Date of Pneumonia Vaccine: Mar 21, 2011 Seasonal Allergies Seasonal Allergies: No Current Status Advance Directives: Yes Advance Directive Location: [facility] Communicates: Verbally Primary Language: Croatian Preferred Spoken Language: Croatian Is interpretation needed?: No Sensory deficits: Hearing impairment Implanted or Applied Medical D: None Past Medical History Surgeries: Orthopedic Pneumonia Coronary Artery Disease, High Cholesterol, Hypertension Dementia Bladder Infection, Renal Failure Chronic Constipation Arthritis, Foot Drop Diabetes, Insulin dep Cataract Loss of Vision: Bilateral Hearing Impairment: Hard of Hearing, Bilateral Hearing Aide Blood Disorders: No Family Medical History Cardiovascular disease 19 MOTHER (CHF) Diabetes mellitus 19 MOTHER Prostate cancer 19 FATHER Heart Disease, Cancer, Diabetes, Hypertension ADMITTED 09/09/20 WITH SEPTIC SHOCK, RESPIRATORY FAILURE, PNEUMONIA ADMITTED 01/11/21 WITH SEPTIC SHOCK, PNEUMONIA, UTI, RESPIRATORY FAILURE Review of Systems Constitutional: no symptoms reported; No dizziness, No malaise EENTM: no symptoms reported Respiratory: no symptoms reported; No short of breath Cardiovascular: No chest pain, No edema, No syncope Gastrointestinal: no symptoms reported; No abdominal pain, No constipation, No diarrhea, No nausea, No vomiting Genitourinary: other (indwelling hassan in place) Musculoskeletal: no symptoms reported Skin: no symptoms reported Psychiatric/Neurological: No Symptoms Reported; Denies Headache Physical Exam Physical Exam Vital Signs Vital Signs - First Documented 07/20/22 07/20/22 07/21/22 16:27 22:27 00:44 Temp 35.9 Pulse 61 Resp 20 B/P (MAP) 104/100 (101) Pulse Ox 97 O2 Delivery Room Air O2 Flow Rate 50.00 FiO2 21 Capillary Refill : Height, Weight, BMI Height: 6'2.00" Weight: 324lbs. 3.0oz. 147.026138rg; 34.80 BMI Method:Stated General Appearance: No Apparent Distress, WD/WN Respiratory: No Accessory Muscle Use, No Respiratory Distress, Decreased Breath Sounds (bilaterally) Cardiovascular: No Edema, No Murmur, Normal Peripheral Pulses (R radial +2), Other (3rd degree heart block - irregular rate and rhythm) Gastrointestinal: Normal Bowel Sounds, Non Tender, Soft Genital/Rectal: Other (indwelling hassan in place) Extremity: No Pedal Edema Neurologic/Psychiatric: Alert Skin: Warm/Dry, Pallor Results Results/Procedures Labs Laboratory Tests 07/21/22 04:57 07/21/22 08:51 Patient resulted labs reviewed. Diagnosis/Problems Diagnosis/Problems (1) Complete heart block Status: Acute Assessment & Plan: Appreciate plan per Cardiology Pacemaker placement on 07/21 NPO Close monitoring with telemetry (2) Diabetes mellitus, type 2 Status: Chronic Assessment & Plan: Monitor blood glucose level while NPO, hold insulin while NPO -Sliding scale insulin once patient is able to eat post pacemaker placement -Diabetic diet (3) Debility Status: Chronic Assessment & Plan: Patient uses wheelchair at baseline with full assistance with transfers -PT/OT services post pacemaker placement for rehabilitation to return to nursing facility (4) Dementia Status: Chronic Assessment & Plan: Continue to monitor patient, assist with transfers (5) Anemia Status: Acute Assessment & Plan: Hgb of 7.5 today - plan to transfuse I unit PRBC -POC Hgb/Hct 2 hours post transfusion -Fe and B12 studies pending TYRA SANDERS DO 07/21/22 1942: HPI History of Present Illness: Source: patient, family (daughter) Exam Limitations: clinical condition Past Hsvxnfj-Uchtqf-Bzffwa Hx Patient Social History Marrital Status: single Employed/Student: retired Past Medical History High Cholesterol, Hypertension Family Medical History Cardiovascular disease 19 MOTHER (CHF) Diabetes mellitus 19 MOTHER Prostate cancer 19 FATHER Review of Systems Constitutional: see HPI Physical Exam Physical Exam General Appearance: No Apparent Distress, WD/WN, Chronically ill Respiratory: No Accessory Muscle Use, No Respiratory Distress, Decreased Breath Sounds (bilaterally) Cardiovascular: Other (3rd degree heart block - irregular rate and rhythm) Assessment/Plan Assessment and Plan Assess & Plan/Chief Complaint Assessment: Irregular cardiac rhythm requiring pacemaker Anemia symptomatic requiring transfusion HTN HLP Debility Advanced age Dementia Presbycusis Plan: Pacemaker Transfuse Monitor BP Supervisory-Addendum Brief Verification & Attestation Participated in pt care: history, MDM, physical Personally performed: exam, history, MDM, supervision of care Care discussed with: Medical Student Procedures: n/a Results interpretation: Verified all documentation Verification and Attestation of Medical Student E/M Service A medical student performed and documented this service in my presence. I reviewed and verified all information documented by the medical student and made modifications to such information, when appropriate. I personally performed the physical exam and medical decision making. Tyra Sanders, Jul 21, 2022,19:39 LENORA SAM Jul 21, 2022 11:04 TYRA SANDERS DO Jul 21, 2022 19:42
[2022-07-21] MEDS ORDERED: BENZ1LOZ74 MM (11:18)
[2022-07-21] MEDS ORDERED: POLY15DR27 OU (11:18)
[2022-07-21] MEDS ORDERED: DONE10TA41 PO (11:18)
[2022-07-21] MEDS ORDERED: ESCI20TA39 PO (11:18)
[2022-07-21] MEDS ORDERED: INSU100I29 SQ (11:18)
[2022-07-21] MEDS ORDERED: DULA0.75 SQ (11:18)
[2022-07-21] MEDS ORDERED: INSU100I48 SQ (11:18)
[2022-07-21] MEDS ORDERED: PROP1DRO21 OU (11:18)
[2022-07-21] MEDS ORDERED: METO50TA15 PO (11:23)
[2022-07-21] MEDS ORDERED: MIDAZOLAM 5 MG/5 ML (VERSED) VIAL ONE (12:56)
[2022-07-21] MEDS ORDERED: fentaNYL INJ 100 MCG/2 ML AMP ONE ×2 (12:56→14:46)
[2022-07-21] MEDS ORDERED: MIDAZOLAM 2 MG/2 ML (VERSED) VIAL ONE (14:46)
--- NOTE | 2022-07-21 15:17 | Cardiac Procedure Note-CS/ASA ---
Pre-Procedure Note Pre-Op Procedure Note Date of Available H&P: Jul 21, 2022 Date H&P Reviewed: Jul 21, 2022 Time H&P Reviewed: 12:00 History & Physical: H&P Reviewed, Patient Examed, No changes noted Conscious Sedation Pre-Proced ASA Score 3 For ASA 3 and 4: Consider anesthesia and medical clearance. Also, for patients with a history of failed moderate sedation consider anesthesia. Airway Lungs Heart ASA score ASA 1: a normal healthy patient ASA 2: a patient with a mild systemic disease (mid diabetes, controlled hypertension, obesity ASA 3: a patient with a severe systemic disease that limits activity (angina, COPD, prior Myocardial infarction) ASA 4: a patient with an incapacitating disease that is a constant threat to life (CHF, renal failure) ASA 5: a moribund patient not expected to survive 24 hrs. (ruptured aneurysm) ASA 6: a declared brain- patient whose organs are being harvested. For emergent operations, add the letter E after the classification Mallampati Classification Grade 2 Sedation Plan Analgesia, Amnesia, Plan communicated to team members The patient is an appropriate candidate to undergo the planned procedure, sedation, and anesthesia. The patient immediately re-assessed prior to indication. BELL TODD MD FACP FAC CCDS Jul 21, 2022 15:17
[2022-07-21] MEDS ORDERED: PATIENT MAY USE OWN MEDS, ALL PO SCH (15:30)
[2022-07-21] MEDS ORDERED: NS IV 1000 ML 1,000 ML IV SCH (15:30)
--- NOTE | 2022-07-21 16:47 | Diagnostic Imaging Report ---
INDICATION: Pacemaker placement. PA and lateral chest obtained at 3:54 p.m. and compared to 02/28/2021. FINDINGS: There is cardiomegaly. Pacemaker is seen with right atrial and ventricular leads. There is no pneumothorax or pleural fluid. There is some mild right basilar atelectasis. IMPRESSION: New pacemaker in place with underlying cardiomegaly. No pneumothorax or pleural fluid. Mild right basilar atelectasis. Dictated by: Dictated on workstation # [id number]
[2022-07-21] MEDS: ceFAZolin INJECTION 1,000 MG in NS (IVPB) 50 ML IV SCH (17:45)
[2022-07-21] MEDS: DONEPEZIL 10 MG (ARICEPT) TAB PO SCH (20:08)
[2022-07-21] MEDS ORDERED: meTOproloL SUCCINATE 50 MG (TOPROL XL) TAB PO ONE (20:45)
[2022-07-22] VITALS (9 sets, daily range): BP systolic 137–158; BP diastolic 66–94
[2022-07-22] MEDS: ceFAZolin INJECTION 1,000 MG in NS (IVPB) 50 ML IV SCH ×2 (01:02→08:46)
--- NOTE | 2022-07-22 01:15 | OPERATIVE REPORT ---
DATE OF SERVICE: 07/21/2022 PREOPERATIVE DIAGNOSIS: Syncope due to intermittent complete heart block. POSTOPERATIVE DIAGNOSIS: Syncope due to intermittent complete heart block. PROCEDURE: Permanent and dual chamber pacemaker implantation. ESTIMATED BLOOD LOSS: Less than 10 mL. DESCRIPTION OF PROCEDURE: He was brought to the cardiac catheterization laboratory after he provided informed consent for the procedure. The left prepectoral area was prepared and draped in the usual sterile fashion. A 1% lidocaine was used for local anesthesia. Modified Seldinger technique was used to advance 2 guidewires into the left subclavian vein and the tips of the wires were placed in the right atrium. Sharp and blunt dissection was used to make a pacemaker pocket. Good hemostasis was assured. The pocket was packed with gauze soaked in the saline. The guidewires were used to advance the sheath and the guidewires were removed. The sheaths were used to advance leads and the sheaths were removed. All lead manipulation was carried out under fluoroscopy. The atrial lead is an active fixation lead and the tip was placed at the right atrial appendage. The ventricular lead is an active fixation lead and the tip was placed in the right ventricle at the mid septum. R waves were measured at 8 millivolts. Ventricular capture threshold was 0.5 volts at 0.4 milliseconds. P waves were measured at 2.25 millivolts and the atrial capture threshold was 0.625 volts at 0.4 milliseconds. Neither lead resulted in diaphragmatic stimulation at maximum output. The leads were sutured to the prepectoral fascia using sleeves and 0 Ethibond. The gauze was removed from the pacemaker pocket and the pocket was then thoroughly irrigated with saline. The leads were attached to a dual chamber pacemaker and the leads and pacemaker were placed in the pocket and the pocket was closed in 2 layers using 3.0 Vicryl. The model number of the atrial lead is Medtronic [id number] and the serial number is [id number]. The ventricular lead is a Medtronic model [id number] and the serial number is [id number]. The pacemaker is Medtronic model [id number] with serial number #[id number]. The pacemaker mode is set at AAIR to DDDR. The lower rate is 60 beats per minute. The upper tracking rate is 130 beats per minute. Job ID: [id number] DocumentID: [id number] Dictated Date: 07/21/2022 15:27:17 Machine Splitter Date: 07/22/2022 01:13:00 Dictated By: BELL TODD MD; ALEXANDRE; FACP; FACC;
[2022-07-22 05:22] LABS: HEMATOCRIT 31 % (40-54); HEMOGLOBIN 8.6 g/dL (13.3-17.7); MEAN CORPUSCULAR HEMOGLOBIN 21 pg (25-34); MEAN CORPUSCULAR HGB CONC 28 g/dL (32-36); MEAN CORPUSCULAR VOLUME 73 fL (80-99); MEAN PLATELET VOLUME 10.2 fL (9.0-12.2); PLATELET COUNT 437 10^3/uL (130-400); WHITE BLOOD COUNT 7.7 10^3/uL (4.3-11.0)
[2022-07-22 05:47] LABS: ALBUMIN 3.6 GM/DL (3.2-4.5)
[2022-07-22 05:48] LABS: POTASSIUM 4.1 MMOL/L (3.6-5.0)
[2022-07-22 05:49] LABS: CALCIUM 8.8 MG/DL (8.5-10.1)
[2022-07-22 05:50] LABS: TOTAL PROTEIN 6.4 GM/DL (6.4-8.2)
[2022-07-22 05:52] LABS: BILIRUBIN,TOTAL 0.4 MG/DL (0.1-1.0)
[2022-07-22 05:54] LABS: CREATININE SERUM 0.71 MG/DL (0.60-1.30)
[2022-07-22] MEDS: inSUlin ASPART (NovoLOG) 1 UNIT/0.01 ML (CHARGE PER UNIT) SC SCH ×4 (06:04→20:57)
--- NOTE | 2022-07-22 08:11 | Cardiology Progress Note ---
Subjective Date Seen by Provider: Jul 22, 2022 Time Seen by Provider: 08:09 Subjective/Events-last exam Patient is laying down comfortably in bed. No new complaint. Review of Systems General: No Chills, No Night Sweats, No Fatigue, No Malaise, No Appetite, No Other HEENT: No Head Aches, No Visual Changes, No Eye Pain, No Ear Pain, No Dysphasia, No Sinus Congestion, No Post Nasal Drip, No Sore Throat, No Other Pulmonary: No Dyspnea, No Cough, No Pleuritic Chest Pain, No Other Cardiovascular: No: Chest Pain, Palpitations, Orthopnea, Paroxysmal Noc. Dyspnea, Edema, Lt Headedness, Other Objective-Cardiology Exam Last Set of Vital Signs Vital Signs 07/20/22 07/22/22 07/22/22 07/22/22 07/22/22 22:27 04:00 04:47 07:17 07:31 Temp 36.4 Pulse 60 Resp 19 B/P (MAP) 148/72 (105) Pulse Ox 99 O2 Delivery OxyMask O2 Flow Rate 0.50 FiO2 21 I&O Intake and Output 07/22/22 00:00 Intake Total 1550 ml Output Total 1950 ml Balance -400 ml Intake Oral 550 ml IV Total 1000 ml Output Urine Total 1950 ml General: Alert, Oriented X3, Cooperative, No Acute Distress HEENT: Atraumatic, PERRLA Neck: Supple, No JVD Lungs: Clear to Auscultation, Normal Air Movement Heart: Regular Rate, Normal S1, Normal S2, Other (Systolic murmur, S3 is present) Abdomen: Normal Bowel Sounds, Soft, No Tenderness, No Hepatosplenomegaly, No Masses Extremities: No Clubbing, No Cyanosis, No Edema, Normal Pulses, No Ten derness/Swelling Skin: No Rashes, No Breakdown, No Significant Lesion Neuro: Normal Gait, Normal Speech, Strength at 5/5 X4 Ext, Normal Tone, Sensation Intact Psych/Mental Status: Mental Status NL, Mood NL Results Lab Laboratory Tests 07/21/22 08:51 07/22/22 04:08 A/P-Cardiology Admission Diagnosis Coronary artery disease Syncope Complete heart block Hypertension Anemia Assessment/Plan Coronary artery disease, mild irregularity in the distal LAD by cardiac catheterization in May 2013. Currently asymptomatic. I will continue monitoring, no changes are recommended Recurrent syncope, had negative tilt table test Had Zio patch which showed transient complete heart block, patient was symptomatic during the episode felt lightheaded and dizzy. Review of the Zio patch showed multiple episodes of complete heart block over the past week. Patient has been symptomatic having worsening symptoms. Patient was admitted and monitored overnight, having advanced high-grade AV block with multiple episodes of complete heart block and severe bradycardia Status post dual-chamber pacemaker implantation, good sensing and capture activity. Continue to monitor Anemia, patient was on Eliquis and aspirin, it was held since July 20, 2022. Consult Dr. Childs for possible GI loss. Intermittent complete heart block. Symptomatic. Status post dual-chamber pacemaker implantation Frequent atrial and ventricular premature contractions, short multiple runs of paroxysmal atrial tachycardia on Holter monitor done in 2013. Twelve-lead EKG done on July 07, 2022 showing sinus rhythm with complete heart block. Heart rate 50. Restarted Toprol-XL 50 mg daily Nonobstructive carotid artery stenosis per carotid duplex done April 2018, I will evaluate carotid ultrasound Hypertension, restarted Toprol-XL 50 mg daily, monitor blood pressure Hyperlipidemia- I will evaluate lipid profile. Left lower extremity erythema and edema- patient reports improvement. Underwent BLE arterial duplex 2017, negative for high grade stenosis. Continue to monitor. Diabetes mellitus. Managed by primary care physician. Chronic right bundle branch block Diabetic neuropathy. Chronic back pain. VALENTINA STRATTON MD Jul 22, 2022 08:11
--- NOTE | 2022-07-22 08:37 | Consultation - Surgery ---
HINA MALDONADO 07/22/22 0837: History of Present Illness History of Present Illness Patient Consulted On(ivelisse/time) 07/22/22 08:28 Date Seen by Provider: Jul 22, 2022 Time Seen by Provider: 08:28 Reason for Visit: Complete heart block History of Present Illness Jacob Quinones is a 81yo male with a past medical history of HTN, High cholesterol, Chronic constipation, and Diabetes whom was admitted due to symptomatic bradycardia. Pt stated about two weeks ago was dizzy after eating one morning which prompted him to tell his nurse. Pt states that his licensed acupuncturist was contacted about this situation. Pt had an appointment with his [facility] on the 07/21; during this appointment he had symptomatic bradycardia and was admitted to [facility] for observation. Pt received a pacemaker yesterday and currently doesn't have any complaints. Surgery was consulted due to Iron Deficiency Anemia. Pt reports never having a colonoscopy. Pt was transfused w/ 1 unit blood yesterday. This morning Hgb impr radha to 8.6 from 7.5 but is still below normal. Allergies and Home Medications Allergies Coded Allergies: No Known Drug Allergies (Unverified , 01/03/19) Patient Home Medication List Acetaminophen (Tylenol) 325 Mg Tablet, 650 MG PO Q4H PRN for PAIN-MILD (1-4) OR TEMPATURE, (Reported) Entered as Reported by: JOSE BURR on 01/03/19 1418 Last Action: Reviewed Acetaminophen (Tylenol) 325 Mg Tablet, 650 MG PO DAILY, (Reported) Entered as Reported by: JOSE BURR on 01/03/19 1418 Last Action: Reviewed Albuterol Sulfate (Albuterol Sulfate) 2.5 Mg/3 Ml Vial.neb, 3 ML NEB Q4H PRN for SHORTNESS OF BREATH, (Reported) Entered as Reported by: ELVIS GOMEZ on 09/02/20 1307 Last Action: Reviewed Apixaban (Eliquis) 5 Mg Tablet, 5 MG PO 0600,1400, (Reported) Entered as Reported by: ELVIS GOMEZ on 01/13/21 0947 Last Action: Reviewed Artificial Tears (Artificial Tears) 1.4 % Soln, 1 DROP OU 0600,1400, (Reported) Entered as Reported by: ELVIS GOMEZ on 07/21/22 1118 Last Action: Reviewed Aspirin (Aspirin EC) 81 Mg Tablet.dr, 81 MG PO DAILY, (Reported) Entered as Reported by: JOSE BURR on 01/03/191417 Last Action: Reviewed Atorvastatin Calcium (Atorvastatin Calcium) 10 Mg Tablet, 10 MG PO HS, (Reporte d) Entered as Reported by: JOSE BURR on 01/03/191417 Last Action: Reviewed Benzocaine/Menthol (Cepacol Sore Throat Lozenge) 15 Mg-3.6 Mg Lozenge, 1 EACH MM UD PRN for COUGH, (Reported) Entered as Reported by: ELVIS GOMEZ on 07/21/221117 Last Action: Reviewed Cetirizine HCl (Cetirizine HCl) 10 Mg Tablet, 10 MG PO DAILY, (Reported) Entered as Reported by: ELVIS GOMEZ on 09/02/201306 Last Action: Reviewed Dapagliflozin Propanediol (Farxiga) 10 Mg Tablet, 10 MG PO DAILY, (Reported) Entered as Reported by: ELVIS GOMEZ on 09/02/201306 Last Action: Reviewed Docusate Sodium (Colace) 100 Mg Capsule, 200 MG PO HS, (Reported) Entered as Reported by: JOSE BURR on 01/03/191417 Last Action: Reviewed Donepezil HCl (Donepezil HCl) 10 Mg Tablet, 10 MG PO HS, (Reported) Entered as Reported by: ELVIS GOMEZ on 07/21/221117 Last Action: Reviewed Dulaglutide (Trulicity) 0.75 Mg/0.5 Ml Pen.injctr, 0.75 MG SQ FRI, (Reported) Entered as Reported by: ELVIS GOMEZ on 07/21/221117 Last Action: Reviewed Escitalopram Oxalate (Escitalopram Oxalate) 20 Mg Tablet, 20 MG PO DAILY, (Reported) Entered as Reported by: ELVIS GOMEZ on 07/21/221117 Last Action: Reviewed Gabapentin (Neurontin) 300 Mg Capsule, 300 MG PO 0600,1000,1400, (Reported) Entered as Reported by: ELVIS GOMEZ on 09/02/201306 Last Action: Reviewed Insulin Detemir (Levemir Flextouch) 100 Unit/Ml (3 Ml) Insuln.pen, 15 UNIT SQ 0600,1800, (Reported) Entered as Reported by: ELVIS GOMEZ on 07/21/221117 Last Action: Reviewed Insulin Lispro (Insulin Lispro Kwikpen U-100) 100 Unit/Ml Insuln.pen, 5 UNITS SQ AC, (Reported) Entered as Reported by: ELVIS GOMEZ on 07/21/221117 Last Action: Reviewed Loperamide HCl (Loperamide) 2 Mg Capsule, 2-4 MG PO UD PRN for DIARRHEA, (Reported) Entered as Reported by: JOSE BURR on 01/03/191417 Last Action: Reviewed Magnesium Hydroxide (Milk of Magnesia) 400 Mg/5 Ml Oral.susp, 30 ML PO DAILY PRN for CONSTIPATION-7TH LINE, (Reported) Entered as Reported by: JOSE BURR on 01/03/191417 Last Action: Reviewed Menthol (Biofreeze) 118 Ml Gel..ml., 1 APPLIC TP Q6H PRN for SHOULDER PAIN, (Reported) Entered as Reported by: JOSE BURR on 01/03/191417 Last Action: Reviewed Metformin HCl (Metformin HCl ER) 500 Mg Tab.er.24h, 1,000 MG PO 0600,1400, (Reported) Entered as Reported by: ELVIS GOMEZ on 09/02/20 1307 Last Action: Reviewed Polyethylene Glycol 3350 (Miralax) 17 Gm Powd.pack, 17 GM PO Q12H PRN for CONSTIPATION-2ND LINE, (Reported) Entered as Reported by: JOSE BURR on 01/03/191417 Last Action: Reviewed Propylene Glycol/Peg 400/Pf (Systane Hydration Pf 0.4-0.3%) 0.3 %-0.4 % Droperette, 1 DROP OU Q4H PRN for DRY EYES, (Reported) Entered as Reported by: ELVIS GOMEZ on 07/21/221117 Last Action: Reviewed Discontinued Medications Artificial Tears (Artificial Tears) 15 Ml Soln, 1 DROP OU BID, (Reported) Discontinued Reason: Duplicate Order Entered as Reported by: ELVIS GOMEZ on 02/28/21 1607 Last Action: Discontinued Benzocaine/Menthol (Cepacol Sore Throat Lozenge) 1 Each Lozenge, 1 EACH MM UD PRN for COUGH, (Reported) Discontinued Reason: Duplicate Order Entered as Reported by: ELVIS GOMEZ on 01/13/21 0947 Last Action: Discontinued Cefdinir (Cefdinir) 300 Mg Capsule, 300 MG PO BID Discontinued Reason: No Longer Taking Prescribed by: PATRICK MACK on 03/04/211309 Last Action: Discontinued Escitalopram Oxalate (Lexapro) 5 Mg Tablet, 5 MG PO DAILY, (Reported) Discontinued Reason: No Longer Taking Entered as Reported by: IKE CARABALLO on 01/12/21210 Last Action: Discontinued Finasteride (Finasteride) 5 Mg Tablet, 5 MG PO DAILY, (Reported) Discontinued Reason: No Longer Taking Entered as Reported by: JOSE BURR on 01/03/191417 Last Action: Discontinued Insulin Detemir (Levemir Flextouch) 100 Unit/1 Ml Insuln.pen, 15 UNITS SC DAILY Discontinued Reason: Duplicate Order Prescribed by: PATRICK MACK on 03/04/211309 Last Action: Discontinued Insulin Lispro (Humalog) 100 Unit/1 Ml Vial, 5 UNITS SC 0600,1000,1400 Discontinued Reason: Duplicate Order Prescribed by: PATRICK MACK on 03/04/211309 Last Action: Discontinued Metoprolol Tartrate (Metoprolol Tartrate) 25 Mg Tablet, 25 MG PO 0600,1400, (Reported) Discontinued Reason: Duplicate Order Entered as Reported by: ELVIS GOMEZ on 09/02/20 1307 Last Action: Discontinued Mirabegron (Myrbetriq) 50 Mg Tab.er.24h, 50 MG PO DAILY, (Reported) Discontinued Reason: No Longer Taking Entered as Reported by: JOSE BURR on 01/03/191417 Last Action: Discontinued Propylene Glycol (Systane Balance) 10 Ml Drops, 1 DROP OU Q4H PRN for DRY EYES, (Reported) Discontinued Reason: Prescription changed Entered as Reported by: ELVIS GOMEZ on 09/02/20 1307 Solifenacin Succinate (Solifenacin Succinate) 5 Mg Tablet, 5 MG PO DAILY, (Reported) Discontinued Reason: No Longer Taking Entered as Reported by: IKE CARABALLO on 01/12/21210 Last Action: Discontinued Tamsulosin HCl (Flomax) 0.4 Mg Cap, 0.4 MG PO 1700, (Reported) Discontinued Reason: No Longer Taking Entered as Reported by: JOSE BURR on 01/03/19 1418 Last Action: Discontinued Vits A and D/White Pet/Lanolin (A and D Ointment) 42.5 Gm Oint...g., 1 APPLIC TP BID, (Reported) Discontinued Reason: No Longer Taking Entered as Reported by: ELVIS GOMEZ on 02/28/21 1607 Last Action: Discontinued Past Qtbpmom-Rzldvp-Orewgr Hx Patient Social History Recent Hopitalizations: No Alcohol Use?: No Have you traveled recently?: No Immunizations Up To Date Tetanus Booster (TDap): More than 5yrs Date of Pneumonia Vaccine: Mar 21, 2011 Date of Influenza Vaccine: Mar 23, 2022 Seasonal Allergies Seasonal Allergies: No Surgeries History of Surgeries: Yes (surgical debridement of chronic wounds) Surgeries: Orthopedic Respiratory History of Respiratory Disorde: Yes (RESP FAILURE/SEPTIC SHOCK/PNEUMONIA) Respiratory Disorders: Pneumonia Cardiovascular History of Cardiac Disorders: Yes (CHRONIC ISCHEMIC HEART DZ) Cardiac Disorders: High Cholesterol, Hypertension Neurological History of Neurological Disord: Yes (History of foot drop) Neurological Disorders: Dementia Reproductive System Hx Reproductive Disorders: No Genitourinary History of Genitourinary Disor: Yes (INCONTINENT; INDWELLING PIERRE CATHETER) Genitourinary Disorders: Bladder Infection, Renal Failure Gastrointestinal History of Gastrointestinal Di: Yes Gastrointestinal Disorders: Chronic Constipation Musculoskeletal History of Musculoskeletal Dis: Yes (chronic debility, does not walk) Musculoskeletal Disorders: Arthritis, Foot Drop Endocrine History of Endocrine Disorders: Yes (MORBID OBESITY) Endocrine Disorders: Diabetes, Insulin dep HEENT History of HEENT Disorders: Yes (DENTAL CARIES) HEENT Disorders: Cataract Loss of Vision: Bilateral Hearing Impairment: Hard of Hearing, Bilateral Hearing Aide Cancer History of Cancer: No Psychosocial History of Psychiatric Problem: No Integumentary History of Skin or Integumenta: Yes (MULTIPLE WOUNDS; CANDIDIASIS) Blood Transfusions History of Blood Disorders: No Family Medical History Significant Family History: Heart Disease, Cancer, Diabetes, Hypertension Family Medial History: Cardiovascular disease 19 MOTHER (CHF) Diabetes mellitus 19 MOTHER Prostate cancer 19 FATHER Review of Systems-General Constitutional: No chills; dizziness; No fever Respiratory: No cough, No dyspnea on exertion Cardiovascular: No chest pain, No edema, No palpitations Gastrointestinal: No abdominal pain, No constipation; diarrhea; No nausea, No vomiting Psychiatric/Neurological: Denies Headache Physical Exam-General Problems Physical Exam Vital Signs Vital Signs - First Documented 07/20/22 07/20/22 07/21/22 16:27 22:27 00:44 Temp 35.9 Pulse 61 Resp 20 B/P (MAP) 104/100 (101) Pulse Ox 97 O2 Delivery Room Air O2 Flow Rate 50.00 FiO2 21 Capillary Refill : General Appearance: no apparent distress Respiratory: chest non-tender, lungs clear, normal breath sounds Cardiovascular: normal peripheral pulses, regular rate, rhythm, no edema, no murmur Peripheral Pulses: 2+ Radial Pulses (R), 2+ Radial Pulses (L) Gastrointestinal: normal bowel sounds, non tender Extremities: calf tenderness (R. Lower Extremity ) Neurologic/Psychiatric: alert, normal mood/affect, oriented x 3 Skin: normal color, warm/dry Lymphatic: no adenopathy Data Review Labs Laboratory Tests 07/21/22 08:51: White Blood Count 5.7, Red Blood Count 3.89L, Hemoglobin 7.5L, Hematocrit 28L, Mean Corpuscular Volume 71L, Mean Corpuscular Hemoglobin 19L, Mean Corpuscular Hemoglobin Concent 27L, Red Cell Distribution Width 17.0H, Platelet Count 464H, Mean Platelet Volume 10.5, Immature Granulocyte % (Auto) 0, Neutrophils (%) (Auto) 68, Lymphocytes (%) (Auto) 14, Monocytes (%) (Auto) 13H, Eosinophils (%) (Auto) 4, Basophils (%) (Auto) 1, Neutrophils # (Auto) 3.9, Lymphocytes # (Auto) 0.8L, Monocytes # (Auto) 0.7, Eosinophils # (Auto) 0.2, Basophils # (Auto) 0.1, Immature Granulocyte # (Auto) 0.0, Neutrophils % (Manual) 72, Lymphocytes % (Manual) 12, Monocytes % (Manual) 10, Eosinophils % (Manual) 3, Basophils % (Manual) 3, Band Neutrophils 0, Anemia Panel Interpretation SEE PATHOLOGY REPORT, Percent Immature Platelet Fraction 2.9, Polychromasia MODERATE, Hypochromasia MODERATE, Anisocytosis MODERATE, Microcytosis SLIGHT, Absolute Reticulocyte Count 79, Percent Reticulocyte Count 2.04, Iron Level 13L, Ferritin 7.2L, Vitamin B12 Level 431 07/21/22 10:59: Glucometer 134H 07/21/22 16:08: Glucometer 124H 07/21/22 20:47: Glucometer 143H 07/22/22 04:08: White Blood Count 7.7, Red Blood Count 4.18L, Hemoglobin 8.6L, Hematocrit 31L, Mean Corpuscular Volume 73L, Mean Corpuscular Hemoglobin 21L, Mean Corpuscular Hemoglobin Concent 28L, Red Cell Distribution Width 17.8H, Platelet Count 437H, Mean Platelet Volume 10.2, Sodium Level 139, Potassium Level 4.1, Chloride Level 107, Carbon Dioxide Level 21, Anion Gap 11, Blood Urea Nitrogen 20H, Creatinine 0.71, Estimat Glomerular Filtration Rate 93, BUN/Creatinine Ratio 28, Glucose Level 195H, Calcium Level 8.8, Corrected Calcium 9.1, Total Bilirubin 0.4, Aspartate Amino Transf (AST/SGOT) 11, Alanine Aminotransferase (ALT/SGPT) 10, Alkaline Phosphatase 75, Total Protein 6.4, Albumin 3.6 Radiology CHEST PA/LAT (2 VIEW) INDICATION: Pacemaker placement. PA and lateral chest obtained at 3:54 p.m. and compared to 02/28/2021. FINDINGS: There is cardiomegaly. Pacemaker is seen with right atrial and ventricular leads. There is no pneumothorax or pleural fluid. There is some mild right basilar atelectasis. IMPRESSION: New pacemaker in place with underlying cardiomegaly. No pneumothorax or pleural fluid. Mild right basilar atelectasis. Assessment/Plan Assessment/Plan Assessment/Plan CAD Syncope Complete Heart Block HTN Management per Cardiology Anemia Iron Deficiency Anemia Fecal Occult Test Planning for Scopes tomorrow DEEDEE SYLVESTER DO 07/22/22 1057: History of Present Illness History of Present Illness History of Present Illness Consult requested by Dr. Esparza for anemia, possible egd/colonoscopy. Patient is an 81 year old male with anemia. Had to be transfused one unit prbc. Hgb was 7 range and no 8.6. He has been having bradycardia and dizziness. He has no abdominal pain. Denies blood in stools. Had Pacemaker placed yesterday. Denies n/v fever sweats chills shortness of breath or chest pain. Allergies and Home Medications Allergies Coded Allergies: No Known Drug Allergies (Unverified , 01/03/19) Patient Home Medication List Home Medication List Reviewed: Yes Acetaminophen (Tylenol) 325 Mg Tablet, 650 MG PO Q4H PRN for PAIN-MILD (1-4) OR TEMPATURE, (Reported) Entered as Reported by: JOSE BURR on 01/03/191417 Last Action: Reviewed Acetaminophen (Tylenol) 325 Mg Tablet, 650 MG PO DAILY, (Reported) Entered as Reported by: JOSE BURR on 01/03/191417 Last Action: Reviewed Albuterol Sulfate (Albuterol Sulfate) 2.5 Mg/3 Ml Vial.neb, 3 ML NEB Q4H PRN for SHORTNESS OF BREATH, (Reported) Entered as Reported by: ELVIS GOMEZ on 09/02/20 130 Last Action: Reviewed Apixaban (Eliquis) 5 Mg Tablet, 5 MG PO 0600,1400, (Reported) Entered as Reported by: ELVIS GOMEZ on 01/13/21 0947 Last Action: Reviewed Artificial Tears (Artificial Tears) 1.4 % Soln, 1 DROP OU 0600,1400, (Reported) Entered as Reported by: ELVIS GOMEZ on 07/21/221117 Last Action: Reviewed Aspirin (Aspirin EC) 81 Mg Tablet.dr, 81 MG PO DAILY, (Reported) Entered as Reported by: JOSE BURR on 01/03/191417 Last Action: Reviewed Atorvastatin Calcium (Atorvastatin Calcium) 10 Mg Tablet, 10 MG PO HS, (Reported) Entered as Reported by: JOSE BURR on 01/03/191417 Last Action: Reviewed Benzocaine/Menthol (Cepacol Sore Throat Lozenge) 15 Mg-3.6 Mg Lozenge, 1 EACH MM UD PRN for COUGH, (Reported) Entered as Reported by: ELVIS GOMEZ on 07/21/221117 Last Action: Reviewed Cetirizine HCl (Cetirizine HCl) 10 Mg Tablet, 10 MG PO DAILY, (Reported) Entered as Reported by: ELVIS GOMEZ on 09/02/201306 Last Action: Reviewed Dapagliflozin Propanediol (Farxiga) 10 Mg Tablet, 10 MG PO DAILY, (Reported) Entered as Reported by: ELVIS GOMEZ on 09/02/201306 Last Action: Reviewed Docusate Sodium (Colace) 100 Mg Capsule, 200 MG PO HS, (Reported) Entered as Reported by: JOSE BURR on 01/03/191417 Last Action: Reviewed Donepezil HCl (Donepezil HCl) 10 Mg Tablet, 10 MG PO HS, (Reported) Entered as Reported by: ELVIS GOMEZ on 07/21/221117 Last Action: Reviewed Dulaglutide (Trulicity) 0.75 Mg/0.5 Ml Pen.injctr, 0.75 MG SQ FRI, (Reported) Entered as Reported by: ELVIS GOMEZ on 07/21/221117 Last Action: Reviewed Escitalopram Oxalate (Escitalopram Oxalate) 20 Mg Tablet, 20 MG PO DAILY, (Reported) Entered as Reported by: ELVIS GOMEZ on 07/21/221117 Last Action: Reviewed Gabapentin (Neurontin) 300 Mg Capsule, 300 MG PO 0600,1000,1400, (Reported) Entered as Reported by: ELVIS GOMEZ on 09/02/20 1307 Last Action: Reviewed Insulin Detemir (Levemir Flextouch) 100 Unit/Ml (3 Ml) Insuln.pen, 15 UNIT SQ 0600,1800, (Reported) Entered as Reported by: ELVIS GOMEZ on 07/21/221117 Last Action: Reviewed Insulin Lispro (Insulin Lispro Kwikpen U-100) 100 Unit/Ml Insuln.pen, 5 UNITS SQ AC, (Reported) Entered as Reported by: ELVIS GOMEZ on 07/21/221117 Last Action: Reviewed Loperamide HCl (Loperamide) 2 Mg Capsule, 2-4 MG PO UD PRN for DIARRHEA, (Reported) Entered as Reported by: JOSE BURR on 01/03/191417 Last Action: Reviewed Magnesium Hydroxide (Milk of Magnesia) 400 Mg/5 Ml Oral.susp, 30 ML PO DAILY PRN for CONSTIPATION-7TH LINE, (Reported) Entered as Reported by: JOSE BURR on 01/03/191417 Last Action: Reviewed Menthol (Biofreeze) 118 Ml Gel..ml., 1 APPLIC TP Q6H PRN for SHOULDER PAIN, (Reported) Entered as Reported by: JOSE BURR on 01/03/191417 Last Action: Reviewed Metformin HCl (Metformin HCl ER) 500 Mg Tab.er.24h, 1,000 MG PO 0600,1400, (Reported) Entered as Reported by: ELVIS GOMEZ on 09/02/20 1307 Last Action: Reviewed Polyethylene Glycol 3350 (Miralax) 17 Gm Powd.pack, 17 GM PO Q12H PRN for CONSTIPATION-2ND LINE, (Reported) Entered as Reported by: JOSE BURR on 01/03/19 1418 Last Action: Reviewed Propylene Glycol/Peg 400/Pf (Systane Hydration Pf 0.4-0.3%) 0.3 %-0.4 % Droperette, 1 DROP OU Q4H PRN for DRY EYES, (Reported) Entered as Reported by: ELVIS GOMEZ on 07/21/22 1118 Last Action: Reviewed Discontinued Medications Artificial Tears (Artificial Tears) 15 Ml Soln, 1 DROP OU BID, (Reported) Discontinued Reason: Duplicate Order Entered as Reported by: ELVIS GOMEZ on 02/28/21 1607 Last Action: Discontinued Benzocaine/Menthol (Cepacol Sore Throat Lozenge) 1 Each Lozenge, 1 EACH MM UD PRN for COUGH, (Reported) Discontinued Reason: Duplicate Order Entered as Reported by: ELVIS GOMEZ on 01/13/21 0947 Last Action: Discontinued Cefdinir (Cefdinir) 300 Mg Capsule, 300 MG PO BID Discontinued Reason: No Longer Taking Prescribed by: PATRICK MACK on 03/04/21 131 Last Action: Discontinued Escitalopram Oxalate (Lexapro) 5 Mg Tablet, 5 MG PO DAILY, (Reported) Discontinued Reason: No Longer Taking Entered as Reported by: IKE CARABALLO on 01/12/21 0211 Last Action: Discontinued Finasteride (Finasteride) 5 Mg Tablet, 5 MG PO DAILY, (Reported) Discontinued Reason: No Longer Taking Entered as Reported by: JOSE BURR on 01/03/19 1418 Last Action: Discontinued Insulin Detemir (Levemir Flextouch) 100 Unit/1 Ml Insuln.pen, 15 UNITS SC DAILY Discontinued Reason: Duplicate Order Prescribed by: PATRICK MACK on 03/04/21 1310 Last Action: Discontinued Insulin Lispro (Humalog) 100 Unit/1 Ml Vial, 5 UNITS SC 0600,1000,1400 Discontinued Reason: Duplicate Order Prescribed by: PATRICK MACK on 03/04/21 131 Last Action: Discontinued Metoprolol Tartrate (Metoprolol Tartrate) 25 Mg Tablet, 25 MG PO 0600,1400, (Reported) Discontinued Reason: Duplicate Order Entered as Reported by: ELVIS GOMEZ on 09/02/20 1307 Last Action: Discontinued Mirabegron (Myrbetriq) 50 Mg Tab.er.24h, 50 MG PO DAILY, (Reported) Discontinued Reason: No Longer Taking Entered as Reported by: JOSE BURR on 01/03/19 1418 Last Action: Discontinued Propylene Glycol (Systane Balance) 10 Ml Drops, 1 DROP OU Q4H PRN for DRY EYES, (Reported) Discontinued Reason: Prescription changed Entered as Reported by: ELVIS GOMEZ on 09/02/20 1307 Solifenacin Succinate (Solifenacin Succinate) 5 Mg Tablet, 5 MG PO DAILY, (Reported) Discontinued Reason: No Longer Taking Entered as Reported by: IKE CARABALLO on 01/12/21 0211 Last Action: Discontinued Tamsulosin HCl (Flomax) 0.4 Mg Cap, 0.4 MG PO 1700, (Reported) Discontinued Reason: No Longer Taking Entered as Reported by: JOSE BURR on 01/03/198 Last Action: Discontinued Vits A and D/White Pet/Lanolin (A and D Ointment) 42.5 Gm Oint...g., 1 APPLIC TP BID, (Reported) Discontinued Reason: No Longer Taking Entered as Reported by: ELVIS GOMEZ on 02/28/21 1607 Last Action: Discontinued Past Hzquykx-Kbwsax-Ducuzl Hx Reviewed Nursing Assessment Reviewed/Agree w Nursing PMH: Yes Family Medical History Significant Family History: No Pertinent Family Hx Family Medial History: Cardiovascular disease 19 MOTHER (CHF) Diabetes mellitus 19 MOTHER Prostate cancer 19 FATHER Review of Systems-General Constitutional: No chills; dizziness EENTM: No blurred vision, No double vision Respiratory: No cough, No dyspnea on exertion Cardiovascular: No chest pain, No edema, No palpitations Gastrointestinal: No abdominal pain, No nausea, No vomiting Genitourinary: No decreased output, No discharge Musculoskeletal: No back pain, No joint pain Skin: No change in color, No change in hair/nails Psychiatric/Neurological: Denies Anxiety, Denies Depressed, Denies Emotional Problems All Other Systems Reviewed Negative Unless Noted: Yes (Negative excepted noted.) Physical Exam-General Problems Physical Exam General Appearance: no apparent distress, obese HEENT: PERRL/EOMI, normal ENT inspection Neck: non-tender, supple Respiratory: chest non-tender, normal breath sounds Cardiovascular: regular rate, rhythm, no edema Gastrointestinal: non tender, soft Rectal: deferred Back: no CVA tenderness, no vertebral tenderness Extremities: No calf tenderness (R. Lower Extremity ), No inflammation Neurologic/Psychiatric: alert, normal mood/affect, oriented x 3 Skin: other (stage 1 sacral decub) Lymphatic: no adenopathy Assessment/Plan Assessment/Plan Assessment/Plan anemia cad syncope chcf anticoagulation stage 1 decub ulcer off set pressure from sacral area discussed risks and benefits of egd/colonoscopy agrees to proceed, consent, prep, npo after midnight anticoagulation on hold follow hgb and transfuse as needed. Supervisory-Addendum Brief Verification & Attestation Participated in pt care: history, MDM, physical Personally performed: exam, history, MDM, supervision of care Care discussed with: Medical Student Procedures: n/a Results interpretation: Verified all documentation Verification and Attestation of Medical Student E/M Service A medical student performed and documented this service in my presence. I reviewed and verified all information documented by the medical student and made modifications to such information, when appropriate. I personally performed the physical exam and medical decision making. Deedee Sylvester, Jul 22, 2022,10:59 HINA MALDONADO Jul 22, 2022 08:37 DEEDEE SYLVESTER DO Jul 22, 2022 10:57
[2022-07-22] MEDS: GABAPENTIN 300 MG (NEURONTIN) CAP PO SCH ×3 (08:46→20:28)
[2022-07-22] MEDS: meTOproloL SUCCINATE 50 MG (TOPROL XL) TAB PO SCH (08:47)
[2022-07-22] MEDS ORDERED: GOLYTELY POWDER 4000 ML BTL PO NR (11:00)
--- NOTE | 2022-07-22 19:06 | Progress Note ---
Subjective Subjective/Events-last exam Pt states he is feeling okay, denies concerns. Objective Exam Last Set of Vital Signs Vital Signs Date Time Temp Pulse Resp B/P (MAP) Pulse Ox O2 Delivery O2 Flow Rate FiO2 07/22/22 16:26 36.2 60 16 149/67 (94) 97 Room Air 07/22/22 08:00 0.50 07/20/22 22:27 21 Capillary Refill : I&O Intake and Output 07/22/22 00:00 Intake Total 1550 ml Output Total 1950 ml Balance -400 ml Intake Oral 550 ml IV Total 1000 ml Output Urine Total 1950 ml General: Alert, No Acute Distress Lungs: Clear to Auscultation, Normal Air Movement Heart: Regular Rate, No Murmurs Abdomen: Normal Bowel Sounds, Soft Psych/Mental Status: Mental Status NL, Mood NL Results/Procedures Lab Laboratory Tests 07/21/22 20:47: Glucometer 143H 07/22/22 04:08: White Blood Count 7.7, Red Blood Count 4.18L, Hemoglobin 8.6L, Hematocrit 31L, Mean Corpuscular Volume 73L, Mean Corpuscular Hemoglobin 21L, Mean Corpuscular Hemoglobin Concent 28L, Red Cell Distribution Width 17.8H, Platelet Count 437H, Mean Platelet Volume 10.2, Sodium Level 139, Potassium Level 4.1, Chloride Level 107, Carbon Dioxide Level 21, Anion Gap 11, Blood Urea Nitrogen 20H, Creatinine 0.71, Estimat Glomerular Filtration Rate 93, BUN/Creatinine Ratio 28, Glucose Level 195H, Calcium Level 8.8, Corrected Calcium 9.1, Total Bilirubin 0.4, Aspartate Amino Transf (AST/SGOT) 11, Alanine Aminotransferase (ALT/SGPT) 10, Alkaline Phosphatase 75, Total Protein 6.4, Albumin 3.6 07/22/22 10:47: Glucometer 195H 07/22/22 14:57: Lab Scanned Report Transfusion Reaction Form 07/22/22 16:01: Glucometer 131H Radiology CHEST PA/LAT (2 VIEW) INDICATION: Pacemaker placement. PA and lateral chest obtained at 3:54 p.m. and compared to 02/28/2021. FINDINGS: There is cardiomegaly. Pacemaker is seen with right atrial and ventricular leads. There is no pneumothorax or pleural fluid. There is some mild right basilar atelectasis. IMPRESSION: New pacemaker in place with underlying cardiomegaly. No pneumothorax or pleural fluid. Mild right basilar atelectasis. Assessment/Plan Assessment/Plan (1) Complete heart block Status: Acute Assessment & Plan: s/p pacemaker placement per Dr. Esparza, appreciate recommendations. (2) Dementia Status: Chronic Assessment & Plan: Alert and oriented x 4 today (3) Anemia Status: Chronic Assessment & Plan: Anemia persistent over last few years, but worse this admit. s/p 1 unit PRBCs. Ferritin low, suspect combination of iron deficiency and chronic disease. He states if scopes are needed he would be okay with that. Monitor hemoglobin for stability. (4) IDDM (insulin dependent diabetes mellitus) Status: Chronic Assessment & Plan: Sliding scale insulin (5) CAD (coronary artery disease) Status: Chronic Assessment & Plan: Holding ASA due to acute drop in hemoglobin. Resume statin and beta rupal. (6) Urinary incontinence Status: Chronic Assessment & Plan: With indwelling catheter. (7) Paroxysmal atrial flutter Status: Chronic Assessment & Plan: Holding Eliquis due to acute on chronic anemia, metoprolol resumed per Cardiology. (8) Neuropathy Status: Chronic Assessment & Plan: Resume home gabapentin (9) Hypertension Status: Chronic Qualifiers: Qualified Codes: I10 - Essential (primary) hypertension PATRICK MACK MD Jul 22, 2022 19:06
[2022-07-22] MEDS ORDERED: ARTIFICAL TEARS 0.4 ML UNIT DOSE (REFRESH PLUS) OU PRN (19:15)
[2022-07-22] MEDS ORDERED: [UNRECOGNIZED DRUG - OTHER] OU PRN (19:15)
[2022-07-22] MEDS ORDERED: polyethylene glycoL POWDER 17 GM (MIRALAX) PACK PO PRN (19:15)
[2022-07-22] MEDS ORDERED: PEG OU PRN (19:15)
[2022-07-22] MEDS ORDERED: PROPYLENE GLYCOL OU PRN (19:15)
[2022-07-22] MEDS ORDERED: MILK OF MAGNESIA 400 MG/5 ML 30 ML UDC PO PRN (19:15)
[2022-07-22] MEDS: DOCUSATE SODIUM 100 MG (COLACE) CAP PO SCH (20:28)
[2022-07-22] MEDS: AtorvaSTATin TABLET 10 MG TABLET PO SCH (20:29)
[2022-07-22] MEDS: DONEPEZIL 10 MG (ARICEPT) TAB PO SCH (20:29)
[2022-07-22] MEDS ORDERED: DONEPEZIL 10 MG (ARICEPT) TAB PO SCH (21:00)
[2022-07-23] VITALS (10 sets, daily range): BP systolic 118–163; BP diastolic 54–84
[2022-07-23 05:26] LABS: HEMATOCRIT 30 % (40-54); HEMOGLOBIN 8.4 g/dL (13.3-17.7); MEAN CORPUSCULAR HEMOGLOBIN 21 pg (25-34); MEAN CORPUSCULAR HGB CONC 29 g/dL (32-36); MEAN CORPUSCULAR VOLUME 72 fL (80-99); MEAN PLATELET VOLUME 9.8 fL (9.0-12.2); PLATELET COUNT 338 10^3/uL (130-400); WHITE BLOOD COUNT 7.1 10^3/uL (4.3-11.0)
[2022-07-23 05:41] LABS: POTASSIUM 3.8 MMOL/L (3.6-5.0)
[2022-07-23 05:42] LABS: CALCIUM 8.7 MG/DL (8.5-10.1)
[2022-07-23 05:47] LABS: CREATININE SERUM 0.6 MG/DL (0.60-1.30)
[2022-07-23] MEDS ORDERED: NON-FORMULARY MEDICATION 1 EA EA (Artificial Tears 1 DROP) OU SCH (06:00)
[2022-07-23] MEDS: ARTIFICAL TEARS 0.4 ML UNIT DOSE (REFRESH PLUS) OU SCH ×2 (06:02→14:24)
[2022-07-23] MEDS: inSUlin ASPART (NovoLOG) 1 UNIT/0.01 ML (CHARGE PER UNIT) SC SCH ×4 (06:02→21:27)
--- NOTE | 2022-07-23 07:49 | Progress Note - Surgery ---
HINA MALDONADO 07/23/22 0749: Subjective Date Seen by a Provider: Jul 23, 2022 Time Seen by a Provider: 06:40 Subjective/Events-last exam Pt was doing well sleeping in bed before interview. Pt states that is doing well and is w/o any complaints. States that he isn't really in any pain. Per nurse he hasn't eaten and anticoagulation has been held. Pt has about 9 bowel movements since starting bowel prep. Nurse says none of them have been clear. Review of Systems General: No Chills HEENT: No Head Aches Pulmonary: No Dyspnea, No Cough Cardiovascular: No: Chest Pain, Palpitations Gastrointestinal: No: Nausea, Vomiting Neurological: No: Weakness, Numbness Objective Exam Vital Signs Date Time Temp Pulse Resp B/P (MAP) Pulse Ox O2 Delivery O2 Flow Rate FiO2 07/23/22 03:28 36.4 60 18 134/66 (88) 99 OxyMask 4.00 07/23/22 01:00 63 07/22/22 23:12 36.5 63 20 137/72 (93) 95 Room Air 07/22/22 20:30 Room Air 07/22/22 19:57 36.7 64 17 140/66 (90) 97 Room Air 07/22/22 19:00 71 07/22/22 16:26 36.2 60 16 149/67 (94) 97 Room Air 07/22/22 13:21 60 07/22/22 12:00 36.7 60 26 157/94 (115) 99 Room Air 07/22/22 11:15 62 24 157/94 (115) 98 Room Air 07/22/22 08:00 99 Room Air 0.50 07/22/22 08:00 36.7 70 18 156/86 (109) 99 Room Air I & O 07/23/22 07:00 Intake Total 3300 ml Output Total 3525 ml Balance -225 ml Capillary Refill : General Appearance: No Apparent Distress, WD/WN, Chronically ill HEENT: PERRL/EOMI Neck: Non Tender, Supple Respiratory: Chest Non Tender, Lungs Clear, Normal Breath Sounds, No Accessory Muscle Use, No Respiratory Distress, Decreased Breath Sounds (bilaterally) Cardiovascular: Regular Rate, Rhythm, No Edema, No Murmur, Normal Peripheral Pulses, Other (3rd degree heart block - irregular rate and rhythm) Peripheral Pulses: 2+ Radial Pulses (R), 2+ Radial Pulses (L) Gastrointestinal: normal bowel sounds, non tender, soft Extremity: Normal Inspection, Non Tender, No Calf Tenderness, No Pedal Edema Neurologic/Psychiatric: Alert, Normal Mood/Affect Skin: Normal Color, Warm/Dry, Pallor Results Lab Laboratory Tests 07/22/22 10:47: Glucometer 195H 07/22/22 14:57: Lab Scanned Report Transfusion Reaction Form 07/22/22 16:01: Glucometer 131H 07/22/22 20:42: Glucometer 309H 07/22/22 22:22: Stool Occult Blood Immunoassay POSITIVEH 07/23/22 05:17: White Blood Count 7.1, Red Blood Count 4.08L, Hemoglobin 8.4L, Hematocrit 30L, Mean Corpuscular Volume 72L, Mean Corpuscular Hemoglobin 21L, Mean Corpuscular Hemoglobin Concent 29L, Red Cell Distribution Width 18.4H, Platelet Count 338, Mean Platelet Volume 9.8, Sodium Level 138, Potassium Level 3.8, Chloride Level 104, Carbon Dioxide Level 23, Anion Gap 11, Blood Urea Nitrogen 12, Creatinine 0.60, Estimat Glomerular Filtration Rate 98, BUN/Creatinine Ratio 20, Glucose Level 160H, Calcium Level 8.7, Triglycerides Level 110, Cholesterol Level 115, LDL Cholesterol Direct 55, VLDL Cholesterol 22, HDL Cholesterol 37L Assessment/Plan Assessment/Plan Assessment/Plan anemia cad syncope group home anticoagulation stage 1 decub ulcer off set pressure from sacral area discussed risks and benefits of egd/colonoscopy agrees to proceed, consent, prep, npo after midnight anticoagulation on hold Pt has been NPO since midnight and tolerated prep; No clear bowel movements yet; Consider planning for EGD/Colonoscopy today follow hgb and transfuse as needed. HERBERT CHILDS DO 07/23/22 4846: Subjective Subjective/Events-last exam Patient doing okay he states. No changes from yesterday. Stools not clear yet, doing enemas today. No abdominal pain. HGb stable. Denies n/v fever sweats chills shortness of breath or chest pain. Objective Exam General Appearance: No Apparent Distress, WD/WN, Chronically ill HEENT: PERRL/EOMI, Normal ENT Inspection Neck: Non Tender, Supple Respiratory: Chest Non Tender, No Accessory Muscle Use, No Respiratory Distress Cardiovascular: Regular Rate, Rhythm, No JVD Gastrointestinal: non tender, soft Extremity: Normal Inspection, Non Tender, No Calf Tenderness Neurologic/Psychiatric: Alert, Normal Mood/Affect Skin: Normal Color, Warm/Dry Lymphatic: No Adenopathy Assessment/Plan Assessment/Plan Assessment/Plan anemia cad syncope group home anticoagulation stage 1 decub ulcer off set pressure from sacral area egd/colonoscopy today anticoagulation on hold Pt has been NPO since midnight and tolerated prep; No clear bowel movements yet follow hgb and transfuse as needed. Supervisory-Addendum Brief Verification & Attestation Participated in pt care: history, MDM, physical Personally performed: exam, history, MDM, supervision of care Care discussed with: Medical Student Procedures: n/a Results interpretation: Verified all documentation Verification and Attestation of Medical Student E/M Service A medical student performed and documented this service in my presence. I reviewed and verified all information documented by the medical student and made modifications to such information, when appropriate. I personally performed the physical exam and medical decision making. Herbert Childs, Jul 23, 2022,11:47 HINA MALDONADO Jul 23, 2022 07:49 HERBERT CHILDS DO Jul 23, 2022 22:47
[2022-07-23] MEDS ORDERED: NON-FORMULARY MEDICATION 1 EA EA (Escitalopram Oxalate 20 MG) PO SCH (09:00)
[2022-07-23] MEDS: meTOproloL SUCCINATE 50 MG (TOPROL XL) TAB PO SCH (09:00)
[2022-07-23] MEDS: GABAPENTIN 300 MG (NEURONTIN) CAP PO SCH ×3 (09:00→21:27)
[2022-07-23] MEDS ORDERED: LACTATED RINGERS 1,000 ML IV STA (12:06)
[2022-07-23] MEDS ORDERED: HURRICAINE EXT TUBE (BENZOCAINE) XX PRN (12:15)
[2022-07-23] MEDS ORDERED: CEFDINIR 300 MG (OMNICEF) CAP PO NR (12:30)
--- NOTE | 2022-07-23 12:31 | Cardiology Progress Note ---
Subjective Date Seen by Provider: Jul 23, 2022 Time Seen by Provider: 12:30 Subjective/Events-last exam Patient was seen at bedside, feeling well. Scheduled for colonoscopy today Review of Systems General: No Chills, No Night Sweats, No Fatigue, No Malaise, No Appetite, No Other HEENT: No Head Aches, No Visual Changes, No Eye Pain, No Ear Pain, No Dysphasia, No Sinus Congestion, No Post Nasal Drip, No Sore Throat, No Other Pulmonary: No Dyspnea, No Cough, No Pleuritic Chest Pain, No Other Cardiovascular: No: Chest Pain, Palpitations, Orthopnea, Paroxysmal Noc. Dyspnea, Edema, Lt Headedness, Other Objective-Cardiology Exam Last Set of Vital Signs Vital Signs 07/20/22 07/23/22 07/23/22 22:27 07:57 08:00 Temp 36.4 Pulse 60 Resp 12 B/P (MAP) 163/84 (110) Pulse Ox 100 O2 Delivery Room Air O2 Flow Rate 4.00 FiO2 21 I&O Intake and Output 07/23/22 00:00 Intake Total 3950 ml Output Total 3800 ml Balance 150 ml Intake Oral 3900 ml IV Total 50 ml Output Urine Total 3800 ml General: Alert, No Acute Distress HEENT: Atraumatic, PERRLA Neck: Supple, No JVD Lungs: Clear to Auscultation, Normal Air Movement Heart: Regular Rate, No Murmurs Abdomen: Normal Bowel Sounds, Soft Extremities: No Clubbing, No Cyanosis, No Edema, Normal Pulses, No Tenderness/Swelling Skin: No Rashes, No Breakdown, No Significant Lesion Neuro: Normal Gait, Normal Speech, Strength at 5/5 X4 Ext, Normal Tone, Sensation Intact Psych/Mental Status: Mental Status NL, Mood NL Results Lab Laboratory Tests 07/23/22 05:17 A/P-Cardiology Admission Diagnosis Coronary artery disease Syncope Complete heart block Hypertension Anemia Assessment/Plan Coronary artery disease, mild irregularity in the distal LAD by cardiac catheterization in May 2013. Currently asymptomatic. I will continue monitoring, no changes are recommended Recurrent syncope, had negative tilt table test Had Zio patch which showed transient complete heart block, patient was symptomatic during the episode felt lightheaded and dizzy. Review of the Zio patch showed multiple episodes of complete heart block over the past week. Patient has been symptomatic having worsening symptoms. Patient was admitted and monitored overnight, having advanced high-grade AV block with multiple episodes of complete heart block and severe bradycardia Status post dual-chamber pacemaker implantation, good sensing and capture activity. Continue to monitor Anemia, patient was on Eliquis and aspirin, it was held since July 20, 2022. Consult Dr. Childs for possible GI loss. Intermittent complete heart block. Symptomatic. Status post dual-chamber pacemaker implantation Frequent atrial and ventricular premature contractions, short multiple runs of paroxysmal atrial tachycardia on Holter monitor done in 2013. Twelve-lead EKG done on July 07, 2022 showing sinus rhythm with complete heart block. Heart rate 50. Restarted Toprol-XL 50 mg daily Nonobstructive carotid artery stenosis per carotid duplex done April 2018, I will evaluate carotid ultrasound Hypertension, restarted Toprol-XL 50 mg daily, monitor blood pressure Hyperlipidemia- I will evaluate lipid profile. Left lower extremity erythema and edema- patient reports improvement. Underwent BLE arterial duplex 2017, negative for high grade stenosis. Continue to monitor. Diabetes mellitus. Managed by primary care physician. Chronic right bundle branch block Diabetic neuropathy. Chronic back pain. VALENTINA STRATTON MD Jul 23, 2022 12:31
--- NOTE | 2022-07-23 12:43 | Progress Note ---
Subjective Subjective/Events-last exam Seen at 0615. Pt sleeping but awakens on exam. Denies pain or concerns. Objective Exam Last Set of Vital Signs Vital Signs Date Time Temp Pulse Resp B/P (MAP) Pulse Ox O2 Delivery O2 Flow Rate FiO2 07/23/22 08:00 Room Air 07/23/22 07:57 36.4 60 12 163/84 (110) 100 4.00 07/20/22 22:27 21 Capillary Refill : I&O Intake and Output 07/23/22 00:00 Intake Total 3950 ml Output Total 3800 ml Balance 150 ml Intake Oral 3900 ml IV Total 50 ml Output Urine Total 3800 ml General: Alert, No Acute Distress Lungs: Clear to Auscultation, Normal Air Movement Heart: Regular Rate Abdomen: Normal Bowel Sounds, Soft Neuro: Normal Speech Psych/Mental Status: Mood NL Results/Procedures Lab Laboratory Tests 07/22/22 14:57: Lab Scanned Report Transfusion Reaction Form 07/22/22 16:01: Glucometer 131H 07/22/22 20:42: Glucometer 309H 07/22/22 22:22: Stool Occult Blood Immunoassay POSITIVEH 07/23/22 05:17: White Blood Count 7.1, Red Blood Count 4.08L, Hemoglobin 8.4L, Hematocrit 30L, Mean Corpuscular Volume 72L, Mean Corpuscular Hemoglobin 21L, Mean Corpuscular Hemoglobin Concent 29L, Red Cell Distribution Width 18.4H, Platelet Count 338, Mean Platelet Volume 9.8, Sodium Level 138, Potassium Level 3.8, Chloride Level 104, Carbon Dioxide Level 23, Anion Gap 11, Blood Urea Nitrogen 12, Creatinine 0.60, Estimat Glomerular Filtration Rate 98, BUN/Creatinine Ratio 20, Glucose Level 160H, Calcium Level 8.7, Triglycerides Level 110, Cholesterol Level 115, LDL Cholesterol Direct 55, VLDL Cholesterol 22, HDL Cholesterol 37L 07/23/22 11:35: Glucometer 150H Radiology CHEST PA/LAT (2 VIEW) INDICATION: Pacemaker placement. PA and lateral chest obtained at 3:54 p.m. and compared to 02/28/2021. FINDINGS: There is cardiomegaly. Pacemaker is seen with right atrial and ventricular leads. There is no pneumothorax or pleural fluid. There is some mild right basilar atelectasis. IMPRESSION: New pacemaker in place with underlying cardiomegaly. No pneumothorax or pleural fluid. Mild right basilar atelectasis. Assessment/Plan Assessment/Plan (1) Complete heart block Status: Acute Assessment & Plan: s/p pacemaker placement per Dr. Esparza, appreciate r ecommendations. (2) Dementia Status: Chronic (3) Anemia Status: Chronic Assessment & Plan: Anemia persistent over last few years, but worse this admit. s/p 1 unit PRBCs. Ferritin low, suspect combination of iron deficiency and chronic disease. He states if scopes are needed he would be okay with that. Monitor hemoglobin for stability. -Plan for scope today (4) IDDM (insulin dependent diabetes mellitus) Status: Chronic Assessment & Plan: Sliding scale insulin (5) CAD (coronary artery disease) Status: Chronic Assessment & Plan: Holding ASA due to acute drop in hemoglobin. Resume statin and beta rupal. (6) Urinary incontinence Status: Chronic Assessment & Plan: With indwelling catheter. (7) Paroxysmal atrial flutter Status: Chronic Assessment & Plan: Holding Eliquis due to acute on chronic anemia, metoprolol resumed per Cardiology. (8) Neuropathy Status: Chronic Assessment & Plan: Resume home gabapentin (9) Hypertension Status: Chronic Qualifiers: Qualified Codes: I10 - Essential (primary) hypertension PATRICK MACK MD Jul 23, 2022 12:42
[2022-07-23] MEDS ORDERED: LACTATED RINGERS 1,000 ML IV ONE (14:13)
[2022-07-23] MEDS ORDERED: PROPOFOL INJECTION 50 ML IV ONE (14:13)
[2022-07-23] MEDS ORDERED: PHENYLEPHRINE 100 MCG/ML 10 ML (ANESTHESIA) SYR ONE (15:06)
--- NOTE | 2022-07-23 15:26 | Anesthesia-General Post-Op ---
MAC Patient Condition Mental Status/LOC: Same as Preop Cardiovascular: Satisfactory Nausea/Vomiting: Absent Respiratory: Satisfactory Pain: Controlled Complications: Absent Post Op Complications Complications None Follow Up Care/Instructions Patient Instructions None needed. Anesthesiology Discharge Order Discharge Order Patient is doing well, no complaints, stable vital signs, no apparent adverse anesthesia problems. No complications reported per nursing. ANNETTE SCOTT DO Jul 23, 2022 15:26
[2022-07-23] MEDS: DONEPEZIL 10 MG (ARICEPT) TAB PO SCH (21:27)
[2022-07-23] MEDS: AtorvaSTATin TABLET 10 MG TABLET PO SCH (21:27)
[2022-07-23] MEDS: DOCUSATE SODIUM 100 MG (COLACE) CAP PO SCH (21:27)
[2022-07-23] MEDS: CEFDINIR 300 MG (OMNICEF) CAP PO SCH (21:27)
[2022-07-24] VITALS: BP 131/68
[2022-07-24 04:00] VITALS: BP 136/70
[2022-07-24 05:01] LABS: HEMATOCRIT 31 % (40-54); HEMOGLOBIN 8.7 g/dL (13.3-17.7); MEAN CORPUSCULAR HEMOGLOBIN 21 pg (25-34); MEAN CORPUSCULAR HGB CONC 28 g/dL (32-36); MEAN CORPUSCULAR VOLUME 73 fL (80-99); MEAN PLATELET VOLUME 10.4 fL (9.0-12.2); PLATELET COUNT 342 10^3/uL (130-400); WHITE BLOOD COUNT 10.3 10^3/uL (4.3-11.0)
[2022-07-24 05:38] LABS: CALCIUM 9.3 MG/DL (8.5-10.1); CREATININE SERUM 0.68 MG/DL (0.60-1.30); POTASSIUM 3.5 MMOL/L (3.6-5.0)
--- NOTE | 2022-07-24 06:15 | Progress Note - Surgery ---
ERICAHINA 07/24/22 0615: Subjective Date Seen by a Provider: Jul 24, 2022 Time Seen by a Provider: 05:36 Subjective/Events-last exam Pt was laying in bed sleeping before interview. Pt states that he is doing well and doesn't have any complaints. 07/22 stool occult was order and collected; results were positive. Yesterday pt received a EGD/Colonoscopy due to anemia. Cecal mass was identified and bx was sent for pathology. Pt was switched from NPO to Heart Healthy diet. Nurse reported that he ate last night and tolerated diet. Pt denies fever, chills, chest pain, headache, sob, cough, abdominal pain, and palpitations. Review of Systems General: No Chills, No Night Sweats HEENT: No Head Aches Pulmonary: No Dyspnea, No Cough Cardiovascular: No: Chest Pain, Palpitations Gastrointestinal: No: Nausea, Vomiting, Diarrhea, Constipation Objective Exam Vital Signs Date Time Temp Pulse Resp B/P (MAP) Pulse Ox O2 Delivery O2 Flow Rate FiO2 07/24/22 04:00 82 21 136/70 (92) 97 Room Air 07/24/22 01:00 80 07/24/22 00:00 78 21 131/68 (89) 96 Room Air 07/23/22 19:50 36.6 84 20 137/68 (91) 94 Room Air 07/23/22 19:45 Room Air 07/23/22 19:15 Room Air 07/23/22 19:00 72 07/23/22 16:00 60 16 141/73 (95) 97 Room Air 07/23/22 15:38 61 16 95 Room Air 07/23/22 15:33 78 16 98 Room Air 07/23/22 15:28 69 16 98 OxyMask 4.00 07/23/22 15:23 66 16 100 OxyMask 10.00 07/23/22 12:31 60 07/23/22 12:00 60 24 143/75 (97) 99 OxyMask 4.00 07/23/22 12:00 36.8 60 15 138/71 (93) 99 Room Air 07/23/22 08:00 Room Air 07/23/22 07:57 36.4 60 12 163/84 (110) 100 OxyMask 4.00 07/23/22 07:07 60 I & O 07/24/22 07:00 Intake Total 550 ml Output Total 1695 ml Balance -1145 ml Capillary Refill : General Appearance: No Apparent Distress, WD/WN, Chronically ill HEENT: PERRL/EOMI, Normal ENT Inspection Neck: Non Tender, Supple Respiratory: Chest Non Tender, No Accessory Muscle Use, No Respiratory Distress Cardiovascular: Regular Rate, Rhythm, No JVD Peripheral Pulses: 2+ Radial Pulses (R), 2+ Radial Pulses (L) Gastrointestinal: normal bowel sounds, non tender, soft Extremity: Normal Inspection, Non Tender, No Calf Tenderness Neurologic/Psychiatric: Alert, Normal Mood/Affect Skin: Normal Color, Warm/Dry Lymphatic: No Adenopathy Results Lab Laboratory Tests 07/23/22 11:35: Glucometer 150H 07/23/22 15:54: Glucometer 149H 07/23/22 20:29: Glucometer 188H 07/24/22 04:27: White Blood Count 10.3, Red Blood Count 4.22L, Hemoglobin 8.7L, Hematocrit 31L, Mean Corpuscular Volume 73L, Mean Corpuscular Hemoglobin 21L, Mean Corpuscular Hemoglobin Concent 28L, Red Cell Distribution Width 18.7H, Platelet Count 342, Mean Platelet Volume 10.4, Sodium Level 140, Potassium Level 3.5L, Chloride Level 106, Carbon Dioxide Level 18L, Anion Gap 16H, Blood Urea Nitrogen 14, Creatinine 0.68, Estimat Glomerular Filtration Rate 94, BUN/Creatinine Ratio 21, Glucose Level 171H, Calcium Level 9.3 Assessment/Plan Assessment/Plan Assessment/Plan anemia cad syncope mcc anticoagulation stage 1 decub ulcer off set pressure from sacral area egd/colonoscopy yesterday; Colon mass present bx sent to pathology anticoagulation and other cardiac meds managed by Cardiology; consider restarting CT Chest/Abdomen Ordered due to Colon Mass Started on heart healthy diet; pt ate last night and tolerated follow hgb; increased today from 8.4 to 8.7, still low; transfuse accordingly f/u w/ Amadeo wednesday; Okay for discharge by surgery standpoint DEEDEE CHILDS DO 07/24/222241: Subjective Subjective/Events-last exam Patient doing well. No abominal pain. Hgb stable. Tolerating diet. Denies n/v fever sweats chills shortness of breath or chest pain. Objective Exam General Appearance: No Apparent Distress, Chronically ill HEENT: PERRL/EOMI, Normal ENT Inspection Neck: Non Tender, Supple Respiratory: Chest Non Tender, No Accessory Muscle Use, No Respiratory Distress Cardiovascular: Regular Rate, Rhythm, No JVD Gastrointestinal: non tender, soft Extremity: Normal Inspection, Non Tender Neurologic/Psychiatric: Alert, Normal Mood/Affect Skin: Normal Color, Warm/Dry Lymphatic: No Adenopathy Assessment/Plan Assessment/Plan Assessment/Plan anemia cad syncope mcc anticoagulation stage 1 decub ulcer cecal mass off set pressure from sacral area egd/colonoscopy yesterday; Colon mass present bx sent to pathology anticoagulation and other cardiac meds managed by Cardiology; consider restarting CT Chest/Abdomen/pelvis Ordered due to Colon Mass Started on heart healthy diet; pt ate last night and tolerated follow hgb; increased today from 8.4 to 8.7, still low; transfuse accordingly f/u w/ Amadeo wednesday; Okay for discharge by surgery standpoint Supervisory-Addendum Brief Verification & Attestation Participated in pt care: history, MDM, physical Personally performed: exam, history, MDM, supervision of care Care discussed with: Medical Student Procedures: n/a Results interpretation: Verified all documentation Verification and Attestation of Medical Student E/M Service A medical student performed and documented this service in my presence. I reviewed and verified all information documented by the medical student and made modifications to such information, when appropriate. I personally performed the physical exam and medical decision making. Deedee Childs, Jul 24, 2022,22:42 HINA MALDONADO Jul 24, 2022 06:15 DEEDEE CHILDS DO Jul 24, 2022 22:42
[2022-07-24] MEDS: ARTIFICAL TEARS 0.4 ML UNIT DOSE (REFRESH PLUS) OU SCH ×2 (07:00→11:15)
[2022-07-24] MEDS ORDERED: NS 100 ML (IVPB) BAG IV ONE (07:45)
[2022-07-24] MEDS ORDERED: HOLD METFORMIN - RECEIVED CONTRAST 20 ML VIAL IV SCH (07:45)
[2022-07-24] MEDS ORDERED: IOHEXOL 350 MG/ML 100 ML (OMNIPAQUE 350) VIAL IV ONE (07:45)
[2022-07-24 07:49] VITALS: BP 129/58
[2022-07-24] MEDS ORDERED: KCL 20 MEQ TAB (K-DUR) PO ONE (08:15)
--- NOTE | 2022-07-24 08:52 | OPERATIVE REPORT ---
DATE OF SERVICE: 07/23/2022 PREOPERATIVE DIAGNOSIS: Anemia. POSTOPERATIVE DIAGNOSIS: Cecal mass site gastritis. PROCEDURE: EGD with biopsies, colonoscopy with cold biopsy of the cecal mass and Aneta ink tattooing. INDICATIONS: The patient is an 81-year-old male who presented to the hospital. He was found to be anemic, had to have a pacemaker placed as well. The patient currently is off anticoagulation and due to the anemia, it was felt best to proceed with EGD and colonoscopy to look for source of anemia. The patient understands risks and benefits and wishes to proceed. Consent was signed and is on chart. DESCRIPTION OF PROCEDURE: The patient was taken to the endoscopy suite, placed in left lateral recumbent position. Timeout was performed. The scope was inserted in the mouth, esophagus, stomach and into the duodenum without difficulty. There were no polyps, masses, ulcerations within the duodenum. Scope was then slowly retracted back to the stomach where had some slight gastritis appearance. Biopsy of the antrum was obtained. No polyps, masses or ulcerations. Scope was retroflexed noting no other pathology. Scope was returned to its normal position. Slowly withdrawn until the distal esophagus. Biopsy of the GE junction was obtained. No polyps, masses or ulcerations. Scope was slowly retracted back until completely removed. The patient then had digital rectal exam performed. No palpable polyps, masses or ulcerations. Scope was inserted into the rectum and slight stool particularly throughout portions of the colon that continued to be irrigated and suctioned. Scope was able to be advanced all the way to the cecum where cecal mass was present. Multiple cold biopsies were obtained. Lots of irrigation was used to irrigate and suction for better visualization. Scope was then continuously retracted back just distal to this area of the cecal mass, Aneta ink tattooing was performed. The scope was then continuously retracted back. No polyps, masses, ulcerations within the ascending, transverse, descending and sigmoid colon. Once in the rectum, the scope was inserted and retracted multiple times and then completely removed. The patient tolerated the procedure well without any complications and was taken to recovery room in stable condition. RECOMMENDATION: Await biopsy results. We will get a CT of the chest, abdomen and pelvis for further workup. The patient likely will need a colonoscopy in one year. Job ID: [id number] DocumentID: [id number] Dictated Date: 07/23/2022 22:20:30 Customer Expert Date: 07/24/2022 08:49:00 Dictated By: DEEDEE SYLVESTER DO
[2022-07-24] MEDS: inSUlin ASPART (NovoLOG) 1 UNIT/0.01 ML (CHARGE PER UNIT) SC SCH ×2 (09:09→11:15)
[2022-07-24] MEDS: meTOproloL SUCCINATE 50 MG (TOPROL XL) TAB PO SCH (09:09)
[2022-07-24] MEDS: CEFDINIR 300 MG (OMNICEF) CAP PO SCH (09:09)
[2022-07-24] MEDS: GABAPENTIN 300 MG (NEURONTIN) CAP PO SCH ×2 (09:09→11:14)
--- NOTE | 2022-07-24 09:46 | Diagnostic Imaging Report ---
PROCEDURE: CT chest, abdomen, and pelvis with contrast. TECHNIQUE: Multiple contiguous axial images were obtained through the chest, abdomen, and pelvis after the administration of intravenous contrast. Auto Exposure Controls were utilized during the CT exam to meet ALARA standards for radiation dose reduction. INDICATION: Cecal mass. CT CHEST: Cardiac pacemaker is in place. The heart is enlarged. No pericardial or pleural fluid is detected. No definite axillary, hilar or mediastinal lymphadenopathy is detected. There is some linear atelectasis in the right lower lobe. There are some nodular opacities in the left lower lobe. These findings are stable when compared to study dating back to February 2021. IMPRESSION: Chronic bibasilar opacities, stable since exam dating back to February 2021. No thoracic lymphadenopathy or chest effusion is detected. CT ABDOMEN AND PELVIS: No focal liver mass is detected. There are small stones in the gallbladder. No biliary ductal dilatation is seen. The pancreas and spleen are unremarkable. Small adrenal nodule on the right is noted measuring 12 mm. This appears to be fairly stable. Left adrenal gland is unremarkable. The kidneys are unremarkable. Aorta is nonaneurysmal. No central retroperitoneal or mesenteric lymphadenopathy is identified. No iliac or inguinal lymphadenopathy is detected. Bladder is decompressed by Garrett catheter. There is some nonspecific gaseous distention to the colon. Small bowel is nondilated. There does appear to be rectal wall thickening. There is no ascites. There are postop changes of left hip. Bony structures are nonacute. IMPRESSION: 1. Cholelithiasis. 2. No evidence of abdominal or pelvic lymphadenopathy. 3. There is some moderate gaseous distention to the colon. The rectal wall is thickened, which could be owing to proctitis. No other significant abnormality is detected. Dictated by: Dictated on workstation # [id number]
[2022-07-24] MEDS ORDERED: METO50TA7 PO (10:31)
--- NOTE | 2022-07-24 10:36 | Cardiology Discharge Summary ---
Discharge Summary Hospital Course Problems Reviewed?: Yes Problems/Diagnosis: (1) Complete heart block Status: Acute Assessment & Plan: s/p pacemaker placement per Dr. Esparza, appreciate recommendations. (2) Dementia Status: Chronic (3) Anemia Status: Chronic Assessment & Plan: Anemia persistent over last few years, but worse this admit. s/p 1 unit PRBCs. Ferritin low, suspect combination of iron deficiency and chronic disease. He states if scopes are needed he would be okay with that. Monitor hemoglobin for stability. -Plan for scope today (4) IDDM (insulin dependent diabetes mellitus) Status: Chronic Assessment & Plan: Sliding scale insulin (5) CAD (coronary artery disease) Status: Chronic Assessment & Plan: Holding ASA due to acute drop in hemoglobin. Resume statin and beta rupal. (6) Urinary incontinence Status: Chronic Assessment & Plan: With indwelling catheter. (7) Paroxysmal atrial flutter Status: Chronic Assessment & Plan: Holding Eliquis due to acute on chronic anemia, metoprolol resumed per Cardiology. (8) Neuropathy Status: Chronic Assessment & Plan: Resume home gabapentin (9) Hypertension Status: Chronic Qualifiers: Qualified Codes: I10 - Essential (primary) hypertension Hospital Course Date of Admission: Jul 20, 2022 at 16:06 Admission Diagnosis : Family Physician/Provider: Kylie Stevenson Date of Discharge: 07/24/22 Discharge Diagnosis: [ ] Hospital Course: [Coronary artery disease, mild irregularity in the distal LAD by cardiac catheterization in May 2013. Currently asymptomatic. Continue to monitor, no changes are recommended Recurrent syncope, had negative tilt table test Had Zio patch which showed transient complete heart block, patient was symptomatic during the episode felt lightheaded and dizzy. Review of the Zio patch showed multiple episodes of complete heart block over the past week. Patient has been symptomatic having worsening symptoms. Patient was admitted and monitored overnight, having advanced high-grade AV block with multiple episodes of complete heart block and severe bradycardia Status post dual-chamber pacemaker implantation, good sensing and capture activity. Continue to monitor Anemia, patient was on Eliquis and aspirin, it was held since July 20, 2022. Colonoscopy showed cecal mass, biopsy was done Work-up for possible metastasis is in progress Patient will follow-up with Dr. Childs next week Intermittent complete heart block. Symptomatic. Status post dual-chamber pacemaker implantation Frequent atrial and ventricular premature contractions, short multiple runs of paroxysmal atrial tachycardia on Holter monitor done in 2013. Twelve-lead EKG done on July 07, 2022 showing sinus rhythm with complete heart block. Heart rate 50. Restarted Toprol-XL 50 mg daily Nonobstructive carotid artery stenosis per carotid duplex done April 2018, I will evaluate carotid ultrasound Hypertension, restarted Toprol-XL 50 mg daily, monitor blood pressure Hyperlipidemia- I will evaluate lipid profile. Left lower extremity erythema and edema- patient reports improvement. Underwent BLE arterial duplex 2017, negative for high grade stenosis. Continue to monitor. Diabetes mellitus. Managed by primary care physician. Chronic right bundle branch block Diabetic neuropathy. Chronic back pain. ] Labs and Pending Lab Test: Laboratory Tests 07/23/22 11:35: Glucometer 150H 07/23/22 15:54: Glucometer 149H 07/23/22 20:29: Glucometer 188H 07/24/22 04:27: White Blood Count 10.3, Red Blood Count 4.22L, Hemoglobin 8.7L, Hematocrit 31L, Mean Corpuscular Volume 73L, Mean Corpuscular Hemoglobin 21L, Mean Corpuscular Hemoglobin Concent 28L, Red Cell Distribution Width 18.7H, Platelet Count 342, Mean Platelet Volume 10.4, Sodium Level 140, Potassium Level 3.5L, Chloride Level 106, Carbon Dioxide Level 18L, Anion Gap 16H, Blood Urea Nitrogen 14, Creatinine 0.68, Estimat Glomerular Filtration Rate 94, BUN/Creatinine Ratio 21, Glucose Level 171H, Calcium Level 9.3 Home Meds Active Metoprolol Succinate 50 Mg Tab.er.24h 50 Mg PO DAILY Reported Cepacol Sore Throat Lozenge (Benzocaine/Menthol) 15 Mg-3.6 Mg Lozenge 1 Each MM UD PRN Insulin Lispro Kwikpen U-100 (Insulin Lispro) 100 Unit/Ml Insuln.pen 5 Units SQ AC Levemir Flextouch (Insulin Detemir) 100 Unit/Ml (3 Ml) Insuln.pen 15 Unit SQ 0600,1800 Trulicity (Dulaglutide) 0.75 Mg/0.5 Ml Pen.injctr 0.75 Mg SQ FRI Artificial Tears 1.4 % Soln 1 Drop OU 0600,1400 Escitalopram Oxalate 20 Mg Tablet 20 Mg PO DAILY Donepezil HCl 10 Mg Tablet 10 Mg PO HS Systane Hydration Pf 0.4-0.3% (Propylene Glycol/Peg 400/Pf) 0.3 %-0.4 % Dr soto 1 Drop OU Q4H PRN Eliquis (Apixaban) 5 Mg Tablet 5 Mg PO 0600,1400 Albuterol Sulfate 2.5 Mg/3 Ml Vial.neb 3 Ml NEB Q4H PRN Neurontin (Gabapentin) 300 Mg Capsule 300 Mg PO 0600,1000,1400 Metformin HCl ER (Metformin HCl) 500 Mg Tab.er.24h 1,000 Mg PO 0600,1400 TAKES 2 (500MG) TABS Farxiga (Dapagliflozin Propanediol) 10 Mg Tablet 10 Mg PO DAILY Cetirizine HCl 10 Mg Tablet 10 Mg PO DAILY Tylenol (Acetaminophen) 325 Mg Tablet 650 Mg PO DAILY TAKES 2 (325MG) TABS Miralax (Polyethylene Glycol 3350) 17 Gm Powd.pack 17 Gm PO Q12H PRN Milk of Magnesia (Magnesium Hydroxide) 400 Mg/5 Ml Oral.susp 30 Ml PO DAILY PRN Loperamide (Loperamide HCl) 2 Mg Capsule 2-4 Mg PO UD PRN MDD 8MG TAKE 2 CAPSULES AFTER FIRST LOOSE STOOL THEN TAKE 1 CAPSULE AFTER EACH SUBSEUENT LOOSE STOOL. Atorvastatin Calcium 10 Mg Tablet 10 Mg PO HS Colace (Docusate Sodium) 100 Mg Capsule 200 Mg PO HS TAKES 2 (100MG) CAPS Tylenol (Acetaminophen) 325 Mg Tablet 650 Mg PO Q4H PRN Biofreeze (Menthol) 118 Ml Gel..ml. 1 Applic TP Q6H PRN Aspirin EC (Aspirin) 81 Mg Tablet. 81 Mg PO DAILY Assessment/Pt DC Instructions Complete heart block Coronary artery disease Anemia Cecal mass Discharge Diet: No Restrictions Discharge Physical Examination Allergies: Coded Allergies: No Known Drug Allergies (Unverified , 01/03/19) General Appearance: No Apparent Distress, WD/WN HEENT: PERRL/EOMI, TMs Normal, Normal ENT Inspection, Pharynx Normal Respiratory: Chest Non Tender, Lungs Clear, Normal Breath Sounds, No Accessory Muscle Use, No Respiratory Distress Cardiovascular: Regular Rate, Rhythm, No Edema, No Gallop, Systolic Murmur Gastrointestinal: Normal Bowel Sounds, No Organomegaly, No Pulsatile Mass, Non Tender Extremity: Normal Capillary Refill, Normal Inspection, Normal Range of Motion Skin: Warm/Dry Neurologic/Psychiatric: Alert, Oriented x3 Clinical Quality Measures Admission Status Admission Status: Inpatient Order (span 2 midnights) Reason for Inpatient Admission: Complete heart block AMI/AHF: Ejection Fraction: Normal LVSF VALENTINA ESPARZA MD Jul 24, 2022 10:36
[2022-07-24 11:53] VITALS: BP 129/58
[2022-07-24 12:00] VITALS: BP 148/74
--- NOTE | 2022-07-24 12:22 | Discharge Inst-Skilled Nursing ---
Discharge Inst-Skilled NF Patient Instructions Patient Problems: Heart block s/p pacemaker placement Anemia Cecal mass, biopsy results pending Consult/Follow Up/Orders Skilled NF Admit to: [facility] Certifications SNF I certify that SNF services are required to be given on an inpatient basis because of the above named patient's need for snf care on a continuing basis for the conditions(s) for which he/she was receiving inpatient hospital services prior to his/her transfer to the SNF. Senior Care Facility Order: Nursing Services, Encapsulator-Evaluate & Treat, Physical Therapy-Evaluate & Treat Oxygen Delivery Method: Room Air Discharge Diet: No Restrictions Daily Activity as Tolerated: Yes Discharge Medications New, Converted or Re-Newed RX: Transmitted to Pharmacy New Medications: Metoprolol Succinate (Metoprolol Succinate) 50 Mg Tab.er.24h 50 MG PO DAILY, #30 TAB 3 Refills Continued Medications: Acetaminophen (Tylenol) 325 Mg Tablet 650 MG PO Q4H PRN for PAIN-MILD (1-4) OR TEMPATURE, TAB Acetaminophen (Tylenol) 325 Mg Tablet 650 MG PO DAILY, TAB TAKES 2 (325MG) TABS Albuterol Sulfate (Albuterol Sulfate) 2.5 Mg/3 Ml Vial.neb 3 ML NEB Q4H PRN for SHORTNESS OF BREATH, EA Apixaban (Eliquis) 5 Mg Tablet 5 MG PO 0600,1400, TAB Artificial Tears (Artificial Tears) 1.4 % Soln 1 DROP OU 0600,1400, EA Atorvastatin Calcium (Atorvastatin Calcium) 10 Mg Tablet 10 MG PO HS, TAB Benzocaine/Menthol (Cepacol Sore Throat Lozenge) 15 Mg-3.6 Mg Lozenge 1 EACH MM UD PRN for COUGH, LOZENGE Cetirizine HCl (Cetirizine HCl) 10 Mg Tablet 10 MG PO DAILY, TAB Dapagliflozin Propanediol (Farxiga) 10 Mg Tablet 10 MG PO DAILY, TAB Docusate Sodium (Colace) 100 Mg Capsule 200 MG PO HS, CAP TAKES 2 (100MG) CAPS Donepezil HCl (Donepezil HCl) 10 Mg Tablet 10 MG PO HS, TAB Dulaglutide (Trulicity) 0.75 Mg/0.5 Ml Pen.injctr 0.75 MG SQ FRI, EA Escitalopram Oxalate (Escitalopram Oxalate) 20 Mg Tablet 20 MG PO DAILY, TAB Gabapentin (Neurontin) 300 Mg Capsule 300 MG PO 0600,1000,1400, CAP Insulin Detemir (Levemir Flextouch) 100 Unit/Ml (3 Ml) Insuln.pen 15 UNIT SQ 0600,1800, EA Insulin Lispro (Insulin Lispro Kwikpen U-100) 100 Unit/Ml Insuln.pen 5 UNITS SQ AC, UNITS Loperamide HCl (Loperamide) 2 Mg Capsule 2-4 MG PO UD PRN for DIARRHEA MDD 8MG, CAP TAKE 2 CAPSULES AFTER FIRST LOOSE STOOL THEN TAKE 1 CAPSULE AFTER EACH SUBSEUENT LOOSE STOOL. Magnesium Hydroxide (Milk of Magnesia) 400 Mg/5 Ml Oral.susp 30 ML PO DAILY PRN for CONSTIPATION-7TH LINE, ML Menthol (Biofreeze) 118 Ml Gel..ml. 1 APPLIC TP Q6H PRN for SHOULDER PAIN, TUBE Metformin HCl (Metformin HCl ER) 500 Mg Tab.er.24h 1000 MG PO 0600,1400, TAB TAKES 2 (500MG) TABS Polyethylene Glycol 3350 (Miralax) 17 Gm Powd.pack 17 GM PO Q12H PRN for CONSTIPATION-2ND LINE, EACH Propylene Glycol/Peg 400/Pf (Systane Hydration Pf 0.4-0.3%) 0.3 %-0.4 % Droperette 1 DROP OU Q4H PRN for DRY EYES, DROP Discontinued Medications: Aspirin (Aspirin EC) 81 Mg Tablet. 81 MG PO DAILY, TAB Patrick Torres Jul 24, 2022 12:21 PATRICK TORRES MD Jul 24, 2022 12:22
--- NOTE | 2022-07-24 14:42 | Progress Note ---
Subjective Subjective/Events-last exam Afebrile, states he is feeling well, denies concerns. Alert and oriented x 4, knows he had scopes yesterday and that he is to follow up on Wednesday. Objective Exam Last Set of Vital Signs Vital Signs Date Time Temp Pulse Resp B/P (MAP) Pulse Ox O2 Delivery O2 Flow Rate FiO2 07/24/22 12:53 76 07/24/22 12:00 36.6 20 148/74 (98) 98 Room Air 07/23/22 15:28 4.00 07/20/22 22:27 21 Capillary Refill : I&O Intake and Output 07/24/22 00:00 Intake Total 550 ml Output Total 2395 ml Balance -1845 ml Intake Oral 400 ml IV Total 150 ml Output Urine Total 2395 ml # Bowel Movements 11 General: Alert, No Acute Distress Lungs: Clear to Auscultation Heart: Regular Rate Abdomen: Normal Bowel Sounds, Soft Neuro: Normal Speech Psych/Mental Status: Mood NL Results/Procedures Lab Laboratory Tests 07/23/22 15:54: Glucometer 149H 07/23/22 20:29: Glucometer 188H 07/24/22 04:27: White Blood Count 10.3, Red Blood Count 4.22L, Hemoglobin 8.7L, Hematocrit 31L, Mean Corpuscular Volume 73L, Mean Corpuscular Hemoglobin 21L, Mean Corpuscular Hemoglobin Concent 28L, Red Cell Distribution Width 18.7H, Platelet Count 342, Mean Platelet Volume 10.4, Sodium Level 140, Potassium Level 3.5L, Chloride Level 106, Carbon Dioxide Level 18L, Anion Gap 16H, Blood Urea Nitrogen 14, Creatinine 0.68, Estimat Glomerular Filtration Rate 94, BUN/Creatinine Ratio 21, Glucose Level 171H, Calcium Level 9.3 07/24/22 10:37: Glucometer 286H Radiology CHEST PA/LAT (2 VIEW) INDICATION: Pacemaker placement. PA and lateral chest obtained at 3:54 p.m. and compared to 02/28/2021. FINDINGS: There is cardiomegaly. Pacemaker is seen with right atrial and ventricular leads. There is no pneumothorax or pleural fluid. There is some mild right basilar atelectasis. IMPRESSION: New pacemaker in place with underlying cardiomegaly. No pneumothorax or pleural fluid. Mild right basilar atelectasis. Assessment/Plan Assessment/Plan (1) Complete heart block Status: Acute Assessment & Plan: s/p pacemaker placement per Dr. Esparza, appreciate recommendations. (2) Dementia Status: Chronic (3) Anemia Status: Chronic Assessment & Plan: Anemia persistent over last few years, but worse this admit. s/p 1 unit PRBCs. Ferritin low, suspect combination of iron deficiency and chronic disease. He states if scopes are needed he would be okay with that. Monitor hemoglobin for stability. -EGD/colo done 07/23/22- cecal mass biopsied. (4) IDDM (insulin dependent diabetes mellitus) Status: Chronic Assessment & Plan: Sliding scale insulin (5) CAD (coronary artery disease) Status: Chronic Assessment & Plan: Held ASA due to acute drop in hemoglobin. Resume statin and beta rupal. (6) Urinary incontinence Status: Chronic Assessment & Plan: With indwelling catheter. (7) Paroxysmal atrial flutter Status: Chronic Assessment & Plan: Held Eliquis due to acute on chronic anemia, metoprolol resumed per Cardiology. (8) Neuropathy Status: Chronic Assessment & Plan: Resume home gabapentin (9) Hypertension Status: Chronic Qualifiers: Qualified Codes: I10 - Essential (primary) hypertension (10) Cecum mass Status: Acute Assessment & Plan: Biopsied on scopes, plan to follow up with Dr. Childs for results/next steps. PATRICK MACK MD Jul 24, 2022 14:42
== END 2022-07-24 13:45 | disposition home or self-care (01) | DRG 244 ==
LOC: CSD 16:06
PROVIDERS: ADMIT Internal Medicine Cardiovascular Disease; ATTEND Internal Medicine Cardiovascular Disease
PROC: 0JH606Z Insertion of Pacemaker, Dual Chamber into Chest Subcutaneous Tissue and Fascia, Open Approach (ICD-10-PCS; principal; 2022-07-21)
PROC: 02H60JZ Insertion of Pacemaker Lead into Right Atrium, Open Approach (ICD-10-PCS; 2022-07-21)
PROC: 02HK3JZ Insertion of Pacemaker Lead into Right Ventricle, Percutaneous Approach (ICD-10-PCS; 2022-07-21)
PROC: 0DBH8ZX Excision of Cecum, Via Natural or Artificial Opening Endoscopic, Diagnostic (ICD-10-PCS; 2022-07-23)
PROC: 0DB68ZX Excision of Stomach, Via Natural or Artificial Opening Endoscopic, Diagnostic (ICD-10-PCS; 2022-07-23)
DX: I44.2 Atrioventricular block, complete (principal); F03.90 Unspecified dementia, unspecified severity, without behavioral disturbance, psychotic disturbance, mood disturbance, and anxiety; M19.90 Unspecified osteoarthritis, unspecified site; E11.9 Type 2 diabetes mellitus without complications; E66.01 Morbid (severe) obesity due to excess calories; Z79.4 Long term (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; I25.10 Atherosclerotic heart disease of native coronary artery without angina pectoris; E78.00 Pure hypercholesterolemia, unspecified; I10 Essential (primary) hypertension; Z79.82 Long term (current) use of aspirin; D64.9 Anemia, unspecified; R55 Syncope and collapse; I65.29 Occlusion and stenosis of unspecified carotid artery; I45.10 Unspecified right bundle-branch block; E11.40 Type 2 diabetes mellitus with diabetic neuropathy, unspecified; G89.29 Other chronic pain; M54.9 Dorsalgia, unspecified; Z68.34 Body mass index [BMI] 34.0-34.9, adult; H91.10 Presbycusis, unspecified ear; R32 Unspecified urinary incontinence; I48.0 Paroxysmal atrial fibrillation; Z79.899 Other long term (current) drug therapy; L89.151 Pressure ulcer of sacral region, stage 1; K63.9 Disease of intestine, unspecified; K29.70 Gastritis, unspecified, without bleeding; Z79.01 Long term (current) use of anticoagulants; I48.92 Unspecified atrial flutter; I49.3 Ventricular premature depolarization; I48.20 Chronic atrial fibrillation, unspecified
CPT/HCPCS: 33208; 36415; 71046; 71260; 74177; 80048; 80053; 80061; 82274; 82607; 82728; 82947; 83540; 84443; 85007; 85027; 85045; 85055; 85610; 85730; 86850; 86900; 86901; 86920; 93005; 93306; 94660

== ENCOUNTER 2022-08-05 05:58 | Outpatient (CLI) | payer MEDICARE, OTHER, MEDICAID ==
[~2022-08-05] VITALS: Ht 190.5 cm; Wt 122.7 kg
[~2022-08-05 05:58] MED LIST changes: +DONE10TA41 PO; +DULA0.75 SQ; +ESCI20TA39 PO; +INSU100I29 SQ; +INSU100I48 SQ; +METO50TA7 PO; +PROP1DRO21 OU
== END 2022-08-11 14:46 | disposition home or self-care (01) ==
LOC: PREOP 05:58
PROVIDERS: ATTEND Surgery
DX: Z01.818 Encounter for other preprocedural examination (principal)

== ENCOUNTER 2022-08-12 07:03 | Inpatient (IN) | payer MEDICARE, OTHER, MEDICAID ==
[~2022-08-12] VITALS: Ht 190 cm; Wt 122.1 kg
[2022-08-12] VITALS (14 sets, daily range): BP systolic 104–143; BP diastolic 43–75
--- OUTSIDE RECORDS SUMMARY | 2022-08-12 07:08 | XMS REPORT ---
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 Name Role Phone CONTRERAS QUINN Unavailable PROBLEMS Type Condition ICD9-CM Code MPO30-TM Code Onset Dates Condition S tatus W/U Status Risk SNOMED Code Notes Problem Benign prostatic hyperplasia with lower urinary tract symptoms, symptom details unspecified N40.1 confirmed [id number] Problem Athscl heart disease of ute coronary artery w/o ang pct rs I25.10 confirmed [id number] Problem Right foot drop M21.371 confirmed [id number] Problem Current moderate episode of major depressive disorder without prior episode F32.1 confirmed 44425511 Problem [facility] resident Z59.3 Dec, confirmed 489364608 Problem CAD (coronary artery disease) I25.10 confirm ed 13547086 Problem Morbid (severe) obesity due to excess calories E66.01 confirmed 007332385 Problem Type 2 diabetes mellitus with diabetic neuropathy, uns pecified E11.40 confirmed 28643722 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 conf irmed 104160313 Problem Hyperlipemia E78.5 confirmed 4308495 4 Problem Coronary artery disease invo lving ute coronary artery of ute heart without angina pectoris I25.10 confirmed 759087 5196859 Problem Essential hypertension I10 confirmed 76718336 Problem Benign prostatic hyperplasia N40.0 confirme d [id number] Problem Recurrent major depressive disorder, 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 confirmed 91439022 Problem Pure hypercholesterolemia E78.00 confirmed 735321861 Problem Essential (primary) hypertension I10 conf irmed 55261895 Problem Abnormal CT scan, chest R93.89 confirmed [id number] Problem Muscle weakness (generalized) M62.81 confirm ed 67391514 Problem Pressure injury of other site, stage 3 L89.893 confirmed 9713211924 Problem Age-related osteoporosis without current pathological fracture M81.0 confirmed 55533878 Problem Other chronic pain G89.29 confirmed 8 7298589 Problem Hypoglycemia E16.2 confirmed 7141394 03 Problem 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.4 co nfirmed 672617555 Problem Type 2 diabetes mellitus with hyperglycemia E11.65 confirmed 34350443 Problem Unspecified dementia without behavioral disturbance F03.90 confirmed 01567146 ALLERGIES No Known Allergies ENCOUNTERS from 1941 to 2022-07-19 Encounter Location Date Provider Diagnosis [facility] [address] [facility] [id number] [place] [address] Aug, CONTRERAS QUINN IMMUNIZATIONS Vaccine Route Administration Date Status 1st Booster PFIZER Bivalent , COVID-19, 0.3mL (Comirnaty) IM Intramuscular Jun 05, 2022 Administered 2nd Booster PFIZER, COVID-19, 0.3ml (Comirnaty) IM Intramuscular November 28, 2021 Administered Booster HRSA PFIZER, COVID-19, 0.3mL IM Intramuscular Apr 24 Administered COVID-19 Pfizer (history) Unknown Jul 25, 2020 Admini stered COVID-19 Pfizer (history) Unknown Jul 04, 2020 Admini stered influenza (history) Unknown Mar 26, 2020 Administered influenza IIV3 (history) Unknown Apr 10, 2014 Adminis tered PRIVATE PPSV23 (PNEUMOVAX) Unknown Mar 05, 2011 Admin istered SOCIAL HISTORY Sex Assigned At : Social History Observation Description Sex Assigned At Unknown REASON FOR REFERRAL No Information VITAL SIGNS No information MEDICATIONS Medication SIG (Take, Route, Frequency, Duration) Notes Start Da te End Date Status Aspirin 81 mg take 1 tablet (81 mg) by oral route once daily [facility] Feb, Active Systane Preservative Free 0.4-0.3 % 1 dropp in both ey es as needed Ophthalmic every 4 hrs Active MiraLax 17 GM 17 grams as needed Orally every 12 hours Active Tears Naturale II instill 1 drop in viviana th eyes BID Not prescribed by Jose Raul/Graham Active Trulicity 0.75 MG/0.5ML 0.75mg Subcutaneous once weekly for 30 d ays Feb, Active HumaLOG KwikPen 100 UNIT/ML INJECT 5 UNITS THREE TIMES DAILY BEFORE MEALSFOR 30 DAYS Subcutaneous 3 times a day for 30 days Active Cepacol Sore Throat 10-2.1 MG 1 lozenge as needed Mouth/Throat ever y 2 hrs Active Escitalopram Oxalate 20 MG 1 tablet Orally Once a day for 30 days Active metFORMIN HCl ER 500 MG 2 tabs Orally 2 times a day for 30 days Feb, Active Donepezil HCl 10 MG 1 tablet at bedtime Orally Once a day for 30 days Active Colace 100 mg 2 capsules Orally twice a day Active Levemir FlexTouch 100 UNIT/ML 15u Subcutaneous 2 times a day for 30 days call for refills Feb, Active Calmoseptine 0.44-20.6 % as directed Externally twice a day Apply to sacrum topically until resolved Active Lipitor 10 MG 1 tablet Orally Once a day for 30 day(s) Active Albuterol Sulfate (2.5 MG/3ML) 0.083% 3 ml as needed Inhalation tawana ry 4 hrs Active Acetaminophen 325 MG 2 tablets as needed Orally every 4 hrs Active loperamide 2 mg 1 tablet as needed for loose stools by o ral route every 6 hours [facility] Apr, Active Tylenol 325 MG 2 tablet in am for pain Orally Once daily Active Milk of Magnesia 1200 MG/15ML 30 ml as needed Orally Active Farxiga 10 mg 1 tablet Orally Once a day in AM for 30 day(s) Active Eliquis 5 MG TAKE 1 Tablet BY MOUTH TWICE DAILY for 30 Active Cetirizine HCl 10 MG 1 tablet Orally Once a day Active Gabapentin 300 MG TAKE 1 Capsule BY MOUTH THREE TIMES DAILY for 30 Active PROCEDURES No Information RESULTS No Results REASON FOR VISIT [facility] MEDICAL (GENERAL) HISTORY Type Description Date Medical History benign prostatic hyperplasia with lower urinary tract symptoms Medical History rash Medical History constipation Medical History dental caries Medical History insomnia Medical History allergic rhinitis Medical History candidiasis of skin and nail Medical History pain left elbow Medical History chronic pain Medical History chronic ischemic heart disease Medical History osteoporosis without current pathologica l fracture Medical History type 2 diabetes Medical History cellulitis of abdoninal wall Medical History cellulitis of left lower ling Medical History morbid obesity Medical History foot drop right foot Medical History other hereditary and idopathic neuropath ies Medical History hyperlipidemia Medical History Insomnia Medical History Pain in left elbow Medical History Changes in skin texture Medical History Essential Hypertension Medical History Muscle Weakness Medical History Difficulty in Walking Medical History Type 2 Diabetes Mellitus without complic ations Medical History Cellulitis of Abdominal Wall Medical History Cellulitis of Left Lower Limb Medical History Morbid Severe Obesity Medical History Foot Drop, Right Foot Medical History Other Hereditary and Idopathic Neuropath ies Medical History Sepsis, Unspecified Organism Medical History Cutaneous Abscess of Abdominal Wall Medical History Unsteadiness on Feet Medical History Proteus (mirabilis) (morgani i) as the cause of diseases classified elsewhere Medical History Severe sepsis with septic shock Medical History Urinary tract infection, site not specif ied Surgical History No Surgical history information Hospitalization History [facility]- Left leg redness Goals Section No Information Health Concerns No Information MEDICAL EQUIPMENT No Information MENTAL STATUS No Information FUNCTIONAL STATUS No Information ASSESSMENTS No Information PLAN OF TREATMENT Next Appt Details Provider Name:CONTRERAS QUINN, 01:00:00 PM, [address], [place], [id number], Insurance Providers Payer Name Payer Address Payer Phone Insured Name Patient Relati onship to Insured Coverage Start Date Coverage End Date Subscriber Number Group [place] [id number] [address] [facility] [address] [phone] Jacob Quinones Self - patient is the insured 2014 [id number] [facility] [address] [facility] [address] Jacob Quinones Self - patient is the insured 2014 [id number] [employer] Part A [address] [facility] [address] Jacob Quinones Self - patient is the insured [id number]
--- OUTSIDE RECORDS SUMMARY | 2022-08-12 07:08 | XMS REPORT ---
Author Author [facility] Address Unknown Phone Unavailable Care Team Providers Care Master Electrician Name Role Phone CONTRERAS QUINN Unavailable PROBLEMS Type Condition ICD9-CM Code [id number] Code Onset Dates Condition S tatus W/U Status Risk SNOMED Code Notes Problem Benign prostatic hyperplasia with lower urinary tract symptoms, symptom details unspecified N40.1 confirmed [id number] Problem Athscl heart disease of [place] coronary artery w/o ang pct rs I25.10 confirmed [id number] Problem Right foot drop M21.371 confirmed 308 166552436297 Problem Current moderate episode of major depressive disorder without prior episode F32.1 confirmed 04997986 Problem alf resident Z59.3 Dec, confirmed 480919496 Problem CAD (coronary artery disease) I25.10 confirm ed 44288107 Problem Morbid (severe) obesity due to excess calories E66.01 confirmed 963201185 Problem Type 2 diabetes mellitus with diabetic neuropathy, uns pecified E11.40 confirmed 81470789 Problem 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 conf irmed 795781880 Problem Hyperlipemia E78.5 confirmed 6010354 4 Problem Coronary artery disease invo lving [place] coronary artery of [place] heart without angina pectoris I25.10 confirmed 660277 9103258 Problem Essential hypertension I10 confirmed 55396946 Problem Benign prostatic hyperplasia N40.0 confirme d 759170142 Problem Recurrent major depressive disorder, 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 confirmed 72915933 Problem Pure hypercholesterolemia E78.00 confirmed 273670956 Problem Essential (primary) hypertension I10 conf irmed 29856335 Problem Abnormal CT scan, chest R93.89 confirmed 24256497189844533 Problem Muscle weakness (generalized) M62.81 confirm ed 58508059 Problem Pressure injury of other site, stage 3 L89.893 confirmed 7552217134 Problem Age-related osteoporosis without current pathological fracture M81.0 confirmed 52800186 Problem Other chronic pain G89.29 confirmed 8 5167174 Problem Hypoglycemia E16.2 confirmed 4869859 03 Problem 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 Z79.4 co nfirmed 491430392 Problem Type 2 diabetes mellitus with hyperglycemia E11.65 confirmed 69776806 Problem Unspecified dementia without behavioral disturbance F03.90 confirmed 33767740 ALLERGIES No Known Allergies ENCOUNTERS from 1940 to 2022-07-13 Encounter Location Date Provider Diagnosis [facility] [address] [facility] [id number] [place] [address] Jul, CONTRERAS QUINN IMMUNIZATIONS Vaccine Route Administration Date Status 1st Booster PFIZER Bivalent , COVID-19, 0.3mL (Comirnaty) IM Intramuscular Jun 05, 2022 Administered 2nd Booster PFIZER, COVID-19, 0.3ml (Comirnaty) IM Intramuscular November 28, 2021 Administered Booster HRSA PFIZER, COVID-19, 0.3mL IM Intramuscular Apr 24 21 Administered COVID-19 Pfizer (history) Unknown Jul 25, [...] mg) by oral route once daily [facility] Feb, Active Systane Preservative Free 0.4-0.3 [...] by o ral route every [address] [facility] Apr, Active Tylenol 325 MG 2 tablet [...] Information RESULTS No Results REASON FOR VISIT requesting to do labs MEDICAL (GENERAL) HISTORY Type Description Date Medical [...] Surgical history information Hospitalization History [facility]- Left leg redness Goals Section No Information Health Concerns No Information MEDICAL EQUIPMENT No Information MENTAL STATUS No Information FUNCTIONAL STATUS No Information ASSESSMENTS No Information PLAN OF TREATMENT No Information Insurance Providers Payer Name Payer Address Payer Phone Insured Name Patient Relati onship to Insured Coverage Start Date Coverage End Date Subscriber Number Group Nu mber NGS MEDICARE Part A [address] [facility] [address] Jacob Quinones Self - patient is the insured [id number] [place] [address] [address] [facility] [id number] [phone] Jacob Quinones Self - patient is the insured 2014 [id number] [facility] [address] [facility] [address] Jacob Quinones Self - patient is the insured [id number]
--- OUTSIDE RECORDS SUMMARY | 2022-08-12 07:08 | XMS REPORT ---
Author Author [facility] Address Unknown Phone Unavailable Care Team Providers Care Wood Milling Machine Tender Name Role Phone CONTRERAS QUINN Unavailable PROBLEMS Type Condition ICD9-CM Code PCU21-TR Code Onset Dates Condition S tatus W/U Status Risk SNOMED Code Notes Problem Benign prostatic hyperplasia with lower urinary tract symptoms, symptom details unspecified N40.1 confirmed 349979409 Problem Athscl heart disease of [place] coronary artery w/o ang pct rs I25.10 confirmed 538738294485267 Problem Right foot drop M21.371 confirmed 308 037375783792 Problem Current moderate episode of major depressive disorder without prior episode F32.1 confirmed 86193764 Problem half-way resident Z59.3 Dec, confirmed 564492492 Problem CAD (coronary artery disease) I25.10 confirm ed 22782671 Problem Morbid (severe) obesity due to excess calories E66.01 confirmed 220130979 Problem Type 2 diabetes mellitus with diabetic neuropathy, uns pecified E11.40 confirmed 29562289 Problem 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 conf irmed 557901014 Problem Hyperlipemia E78.5 confirmed 5150104 4 Problem Coronary artery disease invo lving [place] coronary artery of [place] heart without angina pectoris I25.10 confirmed 304268 9902447 Problem Essential hypertension I10 confirmed 17547493 Problem Benign prostatic hyperplasia N40.0 confirme d 020457590 Problem Recurrent major depressive disorder, 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 confirmed 69414728 Problem Pure hypercholesterolemia E78.00 confirmed 437383010 Problem Essential (primary) hypertension I10 conf irmed 29968936 Problem Abnormal CT scan, chest R93.89 confirmed 21762724228248701 Problem Muscle weakness (generalized) M62.81 confirm ed 53484891 Problem Pressure injury of other site, stage 3 L89.893 confirmed 0463184001 Problem Age-related osteoporosis without current pathological fracture M81.0 confirmed 07296600 Problem Other chronic pain G89.29 confirmed 8 6997721 Problem Hypoglycemia E16.2 confirmed 5950461 03 Problem testing 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 (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 Z79.4 co nfirmed 317780619 Problem Type 2 diabetes mellitus with hyperglycemia E11.65 confirmed 77784657 Problem Unspecified dementia without behavioral disturbance F03.90 confirmed 21126800 ALLERGIES No Known Allergies ENCOUNTERS from 1940 to 2022-07-19 Encounter Location Date Provider Diagnosis [facility] [address] [facility] [id number] [address] [place] [address] Aug, CONTRERAS KAI Pneumonia J18.9 IMMUNIZATIONS Vaccine Route Administration Date Status 1st [...] mg) by oral route once daily M [facility] 12 Feb, 2012 Active Systane Preservative Free 0.4-0.3 % 1 dropp in both ey es as needed Ophthalmic every 4 hrs Active MiraLax 17 GM 17 grams as needed Orally every 12 hours Active Tears Naturale II instill 1 drop in viviana th eyes BID Not prescribed by Jose Raul/Kai Active Trulicity 0.75 MG/0.5ML 0.75mg Subcutaneous once [...] by o ral route every 6 hours [facility] Apr, Active Tylenol 325 MG [...] Information RESULTS No Results REASON FOR VISIT FU CXR MEDICAL (GENERAL) HISTORY Type Description Date Medical [...] Surgical history information Hospitalization History [facility] [place]- Left leg redness Goals Section No Information Health Concerns No Information MEDICAL EQUIPMENT No Information MENTAL STATUS No Information FUNCTIONAL STATUS No Information ASSESSMENTS Encounter Date Diagnosis Assessment Notes Treatment Notes Treatm ent Clinical Notes Aug, Pneumonia (ICD-10 - J18.9) PLAN OF TREATMENT Next Appt Details Provider Name:CONTRERAS FRANCISAN, 01:00:00 PM, [address] [place], [place], [id number], Insurance Providers Payer Name Payer Address Payer Phone Insured Name Patient Relati onship to Insured Coverage Start Date Coverage End Date Subscriber Number Group Nu mber NGS MEDICARE Part A [address] [facility] [phone] Jacob Quinones Self - patient is the insured [id number] GE [address] [facility] [address] Jacob Quinones Self - patient is the insured 2014 [id number] [place] [address] [address] [facility] [phone] Jacob Quinones Self - patient is the insured 2014 [id number]
--- OUTSIDE RECORDS SUMMARY | 2022-08-12 07:08 | XMS REPORT ---
Author Author [facility] Address Unknown Phone Unavailable Care Team Providers Care Gerentological Physiotherapist Name Role Phone CONTRERAS QUINN Unavailable PROBLEMS Type Condition ICD9-CM Code UHS51-GA Code Onset Dates Condition S tatus W/U Status Risk SNOMED Code Notes Problem Benign prostatic hyperplasia with lower urinary tract symptoms, symptom details unspecified N40.1 confirmed 359641528 Problem Athscl heart disease of [place] coronary artery w/o ang pct rs I25.10 confirmed 725716486691303 Problem Right foot drop M21.371 confirmed 308 227864833443 Problem Current moderate episode of major depressive disorder without prior episode F32.1 confirmed 40289615 Problem [facility] resident Z59.3 Dec, confirmed 413530846 Problem CAD (coronary artery disease) I25.10 confirm ed 53474594 Problem Morbid (severe) obesity due to excess calories E66.01 confirmed 880556422 Problem Type 2 diabetes mellitus with diabetic neuropathy, uns pecified E11.40 confirmed 15839962 Problem 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 conf irmed 261149785 Problem Hyperlipemia E78.5 confirmed 7268279 4 Problem Coronary artery disease invo lving [place] coronary artery of [place] heart without angina pectoris I25.10 confirmed 968104 1246270 Problem Essential hypertension I10 confirmed 89750695 Problem Benign prostatic hyperplasia N40.0 confirme d 320469260 Problem Recurrent major depressive disorder, 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 confirmed 71403935 Problem Pure hypercholesterolemia E78.00 confirmed 897671231 Problem Essential (primary) hypertension I10 conf irmed 82294100 Problem Abnormal CT scan, chest R93.89 confirmed 51538345749325786 Problem Muscle weakness (generalized) M62.81 confirm ed 29089626 Problem Pressure injury of other site, stage 3 L89.893 confirmed 4563128548 Problem Age-related osteoporosis without current pathological fracture M81.0 confirmed 04780117 Problem Other chronic pain G89.29 confirmed 8 3764755 Problem Hypoglycemia E16.2 confirmed 1093911 03 Problem 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.4 co nfirmed 555341223 Problem Type 2 diabetes mellitus with hyperglycemia E11.65 confirmed 70600191 Problem Unspecified dementia without behavioral disturbance F03.90 confirmed 27835189 ALLERGIES No Known Allergies ENCOUNTERS from 1941 to 2022-07-12 Encounter Location Date Provider Diagnosis [facility] [address] [facility] [id number] [place] [address] Jul, CONTRERAS KAI Pneumonia of both lo wer lobes due to infectious organism J18.9 IMMUNIZATIONS Vaccine Route Administration Date Status [...] Notes Start Da te End Date Status Escitalopram Oxalate 20 MG 1 tablet Orally Once a day for 30 days Active Albuterol Sulfate (2.5 MG/3ML) 0.083% 3 ml as needed Inhalation tawana ry 4 hrs Active Milk of Magnesia 1200 MG/15ML 30 ml as needed Orally Active Farxiga 10 mg 1 tablet Orally Once a day in AM for 30 day(s) Active metFORMIN HCl ER 500 MG 2 tabs Orally 2 times a day for 30 days Feb, Active Levemir FlexTouch 100 UNIT/ML 15u Subcutaneous 2 times a day for 30 days call for refills Feb, Active Azithromycin 250 MG Take 2 tablets the first day and one tablet the next 4 days Orally Once daily for 5 days Act ryann Lipitor 10 MG 1 tablet Orally Once a day for 30 day(s) Active loperamide 2 mg take 2 tablets (4 mg) by ora l route after 1st loose stool and 1 tablet (2 mg) after each next bowel movement; do not exceed 16 mg in 24hrs [facility] Apr, Active Aspirin 81 mg take 1 tablet (81 mg) by oral route once daily [facility] Feb, Active Calmoseptine 0.44-20.6 % as directed Externally twice a day Apply to sacrum topically until resolved Active Cepacol Sore Throat 10-2.1 MG 1 lozenge as needed Mouth/Throat ever y 2 hrs Active Trulicity 0.75 MG/0.5ML 0.75mg Subcutaneous once weekly for 30 d ays Feb, Active Colace 100 mg 2 capsules Orally twice a day Active Acetaminophen 325 MG 2 tablets as needed Orally every 4 hrs Active Cetirizine HCl 10 MG 1 tablet Orally Once a day Active methylPREDNISolone 4 MG 6 tablets the first day, 5 t ablets second day, 4 tablets the third day, 3 tablets the fourth day, 2 tablets the fifth day, 1 tablet the sixth day. Orally Once a day for 6 days Apr, Active Lagevrio 200 MG 4 capsules Orally every 12 hrs for 5 days Apr, Active Gabapentin 300 MG TAKE 1 Capsule BY MOUTH THREE TIMES DAILY for 30 Active Tears Naturale II instill 1 drop in viviana th eyes BID Not prescribed by Jose Raul/Kai Active MiraLax 17 GM 17 grams as needed Orally every 12 hours Active Metoprolol Tartrate 50 MG 1 tablet Orally Twice a day for 30 days Active Donepezil HCl 10 MG 1 tablet at bedtime Orally Once a day for 30 days Active Eliquis 5 MG TAKE 1 Tablet BY MOUTH TWICE DAILY for 30 Active Tylenol 325 MG 2 tablet in am for pain Orally Once daily Active Systane Preservative Free 0.4-0.3 % 1 dropp in both ey es as needed Ophthalmic every 4 hrs Active HumaLOG KwikPen 100 UNIT/ML INJECT 5 UNITS THREE TIMES DAILY BEFORE MEALSFOR 30 DAYS Subcutaneous 3 times a day for 30 days Active PROCEDURES No Information RESULTS No Results REASON FOR VISIT tx shannon pneumonia MEDICAL (GENERAL) HISTORY Type Description Date Medical [...] Surgical history information Hospitalization History [facility] [place]- Left leg redness Goals Section No Information Health Concerns No Information MEDICAL EQUIPMENT No Information MENTAL STATUS No Information FUNCTIONAL STATUS No Information ASSESSMENTS Encounter Date Diagnosis Assessment Notes Treatment Notes Treatm ent Clinical Notes Jul, Pneumonia of both lower lobe s due to infectious organism (ICD-10 - J18.9) PLAN OF TREATMENT Medication Medication Name Sig Start Date Stop Date Escitalopram Oxalate 20 MG 1 tablet Orally Once a day for 30 day s HumaLOG KwikPen 100 UNIT/ML INJECT 5 UNITS THREE TIMES DAILY BEFORE MEALSFOR 30 DAYS Subcutaneous 3 times a day for 30 days Next Appt Details Provider Name:CONTRERAS QUINN, 11:20:00 AM, [address] [place], [place], [phone], Insurance Providers Payer Name Payer Address Payer Phone Insured Name Patient Relati onship to Insured Coverage Start Date Coverage End Date Subscriber Number Group Nu mber NGS MEDICARE Part A [address] [facility] [phone] Jacob Quinones Self - patient is the insured [id number] [employer] [address] [facility] [address] Jacob Quinones Self - patient is the insured [id number] [place] [address] [address] [facility] [address] Jacob Quinones Self - patient is the insured 2014 [id number]
--- OUTSIDE RECORDS SUMMARY | 2022-08-12 07:08 | XMS REPORT ---
Author Author [facility] Address Unknown Phone Unavailable Care Team Providers Care Motion Picture Operator Name Role Phone CONTRERAS QUINN Unavailable PROBLEMS Type Condition ICD9-CM Code IBC79-RR Code Onset Dates Condition S tatus W/U Status Risk SNOMED Code Notes Problem Benign prostatic hyperplasia with lower urinary tract symptoms, symptom details unspecified N40.1 confirmed 164495573 Problem Morbid (severe) obesity due to excess calories E66.01 confirmed 501954192 Problem Type 2 diabetes mellitus with diabetic neuropathy, uns pecified E11.40 confirmed 37965204 Problem 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.4 conf irmed 637441765 Problem Hyperlipemia E78.5 confirmed 4441516 4 Problem Coronary artery disease invo lving [place] coronary artery of [place] heart without angina pectoris I25.10 confirmed 819346 5026746 Problem Essential hypertension I10 confirmed 29861758 Problem Age-related osteoporosis without current pathological fracture M81.0 confirmed 94379818 Problem Benign prostatic hyperplasia N40.0 confirme d 101777400 Problem Recurrent major depressive disorder, 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 confirmed 63742205 Problem Pure hypercholesterolemia E78.00 confirmed 511461906 Problem Essential (primary) hypertension I10 conf irmed 30516774 Problem Abnormal CT scan, chest R93.89 confirmed 34085656845089929 Problem Current moderate episode of major depressive disorder without prior episode F32.1 confirmed 14103525 Problem Other chronic pain G89.29 confirmed 8 2424908 Problem Pressure injury of other site, stage 3 L89.893 confirmed 5446398302 Problem alf resident Z59.3 Dec, confirmed 993048924 Problem Muscle weakness (generalized) M62.81 confirm ed 48964619 Problem Right foot drop M21.371 confirmed 308 661521749215 Problem Hypoglycemia E16.2 confirmed 1652354 03 Problem alf (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 Z79.4 co nfirmed 133882477 Problem Type 2 diabetes mellitus with hyperglycemia E11.65 confirmed 87964238 Problem Unspecified dementia without behavioral disturbance F03.90 confirmed 28717303 ALLERGIES No Known Allergies ENCOUNTERS from 1941 to 2022-06-23 Encounter Location Date Provider Diagnosis [facility] [address] [facility] [id number] [place] [address] Jul, CONTRERAS KAI Candidiasis, intertr igo B37.2 and Type 2 diabetes mellitus with diabetic neuropathy, unspecified E11.40 IMMUNIZATIONS Vaccine Route Administration Date Status COVID-19 Pfizer (history) Unknown Jul 04, 2020 Admini stered COVID-19 Pfizer (history) Unknown Jul 25, 2020 Admini stered influenza IIV3 (history) Unknown Apr 10, 2014 Adminis tered influenza (history) Unknown Mar 26, 2020 Administered Booster HRSA PFIZER, COVID-19, 0.3mL IM Intramuscular Apr 24 Administered 1st Booster PFIZER Bivalent , COVID-19, 0.3mL (Comirnaty) IM Intramuscular Jun 05, 2022 Administered 2nd Booster PFIZER, COVID-19, 0.3ml (Comirnaty) IM Intramuscular November 28, 2021 Administered PRIVATE PPSV23 (PNEUMOVAX) Unknown Mar 05, 2011 [...] do not exceed 16 mg in 24hrs [facility] Apr, Active Aspirin 81 mg take 1 tablet (81 mg) by oral route once daily [facility] Feb, Active Calmoseptine 0.44-20.6 % as directed [...] Information RESULTS No Results REASON FOR VISIT Ins will not pay for Invokamet or Nystatin powder MEDICAL (GENERAL) HISTORY Type Description Date Medical [...] History No Surgical history information Hospitalization History [facility]- Left leg redness Goals Section No Information Health Concerns No Information MEDICAL EQUIPMENT No Information MENTAL STATUS No Information FUNCTIONAL STATUS No Information ASSESSMENTS Encounter Date Diagnosis Assessment Notes Treatment Notes Treatm ent Clinical Notes Jul, Candidiasis, intertrigo (ICD-10 - B37.2) Jul, Type 2 diabetes mellitus wit h diabetic neuropathy, unspecified (ICD-10 - E11.40) PLAN OF TREATMENT Medication Medication Name Sig Start Date Stop Date Escitalopram Oxalate 20 MG 1 tablet Orally Once a day for 30 day s HumaLOG KwikPen 100 UNIT/ML INJECT 5 UNITS THREE TIMES DAILY BEFORE MEALSFOR 30 DAYS Subcutaneous 3 times a day for 30 days Next Appt Details Provider Name:CONTRERAS QUINN, 01:00:00 PM, [address] [place], [place], [phone], Insurance Providers Payer Name Payer Address Payer Phone Insured Name Patient Relati onship to Insured Coverage Start Date Coverage End Date Subscriber Number Group Nu mber NGS MEDICARE Part A [address] [facility] [phone] Jacob Quinones Self - patient is the insured [id number] [place] [address] [address] [facility] [address] Jacob Quinones Self - patient is the insured 2014 [id number] [facility] [address] [facility] [address] Jacob Quinones Self - patient is the insured 2014 [id number]
--- OUTSIDE RECORDS SUMMARY | 2022-08-12 07:08 | XMS REPORT ---
Author Author [facility] Address Unknown Phone Unavailable Care Team Providers Care Admissions Manager Rn Name Role Phone CONTRERAS QUINN Unavailable PROBLEMS Type Condition ICD9-CM Code QME50-FX Code Onset Dates Condition S tatus W/U Status Risk SNOMED Code Notes Problem Benign prostatic hyperplasia with lower urinary tract symptoms, symptom details unspecified N40.1 confirmed [id number] Problem Athscl heart disease of [place] coronary artery w/o ang pct rs I25.10 confirmed [id number] Problem Right foot drop M21.371 confirmed 308 [id number] Problem Current moderate episode of major depressive disorder without prior episode F32.1 confirmed 52353870 Problem penitentiary resident Z59.3 Dec, confirmed 456890180 Problem CAD (coronary artery disease) I25.10 confirm ed 30752512 Problem Morbid (severe) obesity due to excess calories E66.01 confirmed 615549419 Problem Type 2 diabetes mellitus with diabetic neuropathy, uns pecified E11.40 confirmed 65093537 Problem 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 Z79.4 conf irmed 862548890 Problem Hyperlipemia E78.5 confirmed 5789298 4 Problem Coronary artery disease invo lving [place] coronary artery of [place] heart without angina pectoris I25.10 confirmed 488952 0295911 Problem Essential hypertension I10 confirmed 34670124 Problem Benign prostatic hyperplasia N40.0 confirme d 664129528 Problem Recurrent major depressive disorder, 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 confirmed 02644842 Problem Pure hypercholesterolemia E78.00 confirmed 391996711 Problem Essential (primary) hypertension I10 conf irmed 61751135 Problem Abnormal CT scan, chest R93.89 confirmed [id number] Problem Muscle weakness (generalized) M62.81 confirm ed 21576638 Problem Pressure injury of other site, stage 3 L89.893 confirmed 8492817525 Problem Age-related osteoporosis without current pathological fracture M81.0 confirmed 98798950 Problem Other chronic pain G89.29 confirmed 8 5695119 Problem Hypoglycemia E16.2 confirmed 8722181 03 Problem intermission coordinator (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 Z79.4 co nfirmed 411387908 Problem Type 2 diabetes mellitus with hyperglycemia E11.65 confirmed 01803374 Problem Unspecified dementia without behavioral disturbance F03.90 confirmed [id number] ALLERGIES No Known Allergies ENCOUNTERS from 1941 to 2022-07-21 Encounter Location Date Provider Diagnosis [facility] [address] [facility] [id number] [place] [address] Aug, CONTRERAS KAI Candidiasis, intertr igo B37.2 and Pneumonia of both lower lobes due to infectious organism J18.9 IMMUNIZATIONS [...] REASON FOR REFERRAL No Information VITAL SIGNS Height 75 in Aug, Weight 309.6 lbs Aug, Weight-kg 140.43 kg Aug, Temperature 97.7 degrees Fahrenheit Aug, Heart Rate 88 bpm Aug, Respiratory Rate 20 bpm Aug, Oximetry 95 % Aug, BMI 38.69 kg/m2 Aug, Blood pressure systolic 135 mmHg 04 Mar, 2021 Blood pressure diastolic 75 mmHg Aug, MEDICATIONS Medication SIG (Take, Route, Frequency, Duration) Notes Start Da te End Date Status Aspirin 81 mg take 1 tablet (81 mg) by oral route once daily [facility] Feb, Active Systane Preservative Free 0.4-0.3 % [...] by o ral route every 6 hours [facility] Apr, Active Tylenol 325 MG 2 tablet [...] Information RESULTS No Results REASON FOR VISIT Follow up pneumonia MEDICAL (GENERAL) HISTORY Type Description Date [...] History No Surgical history information Hospitalization History [facility]- Left leg redness Goals Section No Information Health Concerns No Information MEDICAL EQUIPMENT No Information MENTAL STATUS No Information FUNCTIONAL STATUS No Information ASSESSMENTS Encounter Date Diagnosis Assessment Notes Treatment Notes Treatm ent Clinical Notes Aug, Candidiasis, intertrigo (ICD-10 - B37.2) Aug, Pneumonia of both lower lobe s due to infectious organism (ICD-10 - J18.9) Much improved. Finish curre nt antibiotics Aug, Other Verbal authoriz ation for telephonic visit was obtained PLAN OF TREATMENT Treatment Notes Assessment Notes Clinical Notes Pneumonia of both lower lobes due to infectious organi sm Much improved. Finish current antibiotics Next Appt Details prn Reason: Provider Name:CONTRERAS QUINN, 01:00:00 PM, [address], [place], [id number], Insurance Providers Payer Name Payer Address Payer Phone Insured Name Patient Relati onship to Insured Coverage Start Date Coverage End Date Subscriber Number Group Nu mber NGS MEDICARE Part A [address] [facility] [phone] Jacob Quinones Self - patient is the insured [id number] [facility] [address] [facility] [id number] Jacob Quinones Self - patient is the insured 2014 [id number] [place] [address] [address] [facility] [address] [phone] Jacob Quinones Self - patient is the insured [id number]
--- OUTSIDE RECORDS SUMMARY | 2022-08-12 07:08 | XMS REPORT ---
Author Author [facility] Address Unknown Phone Unavailable Care Team Providers Care Associate Attorney Name Role Phone CONTRERAS QUINN Unavailable PROBLEMS Type Condition ICD9-CM Code QTA29-OL Code Onset Dates Condition S tatus W/U Status Risk SNOMED Code Notes Problem Benign prostatic hyperplasia with lower urinary tract symptoms, symptom details unspecified N40.1 confirmed 232593664 Problem Athscl heart disease of [place] coronary artery w/o ang pct rs I25.10 confirmed [id number] Problem Right foot drop M21.371 confirmed 308 314925494440 Problem Current moderate episode of major depressive disorder without prior episode F32.1 confirmed 74100495 Problem assisted resident Z59.3 Dec, confirmed 286353543 Problem CAD (coronary artery disease) I25.10 confirm ed 21916475 Problem Morbid (severe) obesity due to excess calories E66.01 confirmed 778864994 Problem Type 2 diabetes mellitus with diabetic neuropathy, uns pecified E11.40 confirmed 31680220 Problem manager credit risk current use of insulin Z79.4 conf irmed 123205524 Problem Hyperlipemia E78.5 confirmed 2445405 4 Problem Coronary artery disease invo lving [place] coronary artery of [place] heart without angina pectoris I25.10 confirmed 547663 2054943 Problem Essential hypertension I10 confirmed 72903928 Problem Benign prostatic hyperplasia N40.0 confirme d 142748970 Problem Recurrent major depressive disorder, 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 confirmed 95145223 Problem Pure hypercholesterolemia E78.00 confirmed 434648691 Problem Essential (primary) hypertension I10 conf irmed 09674200 Problem Abnormal CT scan, chest R93.89 confirmed 41339672946492751 Problem Muscle weakness (generalized) M62.81 confirm ed 97026061 Problem Pressure injury of other site, stage 3 L89.893 confirmed 3284465516 Problem Age-related osteoporosis without current pathological fracture M81.0 confirmed 88594786 Problem Other chronic pain G89.29 confirmed 8 6111438 Problem Hypoglycemia E16.2 confirmed 1099676 03 Problem manager credit risk (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 Z79.4 co nfirmed 094935964 Problem Type 2 diabetes mellitus with hyperglycemia E11.65 confirmed 29838701 Problem Unspecified dementia without behavioral disturbance F03.90 confirmed 08161901 ALLERGIES No Known Allergies ENCOUNTERS from 1941 to 2022-07-16 Encounter Location Date Provider Diagnosis [facility] [address] [facility] [id number] [place] [address] Jul, CONTRERAS QUINN IMMUNIZATIONS Vaccine Route Administration Date Status Booster HRSA PFIZER, COVID-19, 0.3mL IM Intramuscular Apr 24 Administered PRIVATE PPSV23 (PNEUMOVAX) Unknown Mar 05, 2011 Admin istered influenza IIV3 (history) Unknown Apr 10, 2014 Adminis tered 1st Booster PFIZER Bivalent , COVID-19, 0.3mL (Comirnaty) IM Intramuscular Jun 05, 2022 Administered 2nd Booster PFIZER, COVID-19, 0.3ml (Comirnaty) IM Intramuscular November 28, 2021 Administered COVID-19 Pfizer (history) Unknown Jul 25, 2020 Admini stered COVID-19 Pfizer (history) Unknown Jul 04, 2020 Admini stered influenza (history) Unknown Mar 26, 2020 Administered SOCIAL HISTORY Sex Assigned At : Social History Observation Description Sex Assigned At Unknown REASON FOR REFERRAL No Information VITAL SIGNS No information MEDICATIONS Medication SIG (Take, Route, Frequency, Duration) Notes Start Da te End Date Status Aspirin 81 mg take 1 tablet (81 mg) by oral route once daily M [facility] Feb, Active Systane Preservative Free 0.4-0.3 [...] o ral route every [address] [facility] Apr, Active Tylenol 325 MG 2 tablet [...] Information RESULTS No Results REASON FOR VISIT c/o pain d/t fall MEDICAL (GENERAL) HISTORY Type Description Date Medical [...] Surgical history information Hospitalization History [facility]- Left leg redness Goals Section No Information Health Concerns No Information MEDICAL EQUIPMENT No Information MENTAL STATUS No Information FUNCTIONAL STATUS No Information ASSESSMENTS No Information PLAN OF TREATMENT Next Appt Details Provider Name:CONTRERAS QUINN, 01:00:00 PM, [address], [place], [id number], Insurance Providers Payer Name Payer Address Payer Phone Insured Name Patient Relati onship to Insured Coverage Start Date Coverage End Date Subscriber Number Group Nu mber NGS MEDICARE Part A [address] [facility] [phone] Jacob Quinones Self - patient is the insured [id number] [facility] [address] [facility] [facility] [address] Jacob Quinones Self - patient is the insured 2014 [id number] [place] [address] [address] [facility] [address] [address] Jacob Quinones Self - patient is the insured 2014 [id number]
[2022-08-12] MEDS ORDERED: BUP/EPI 0.5% 1:200,000 (SENSORCAINE) 30 ML VIAL ONE (07:21)
--- NOTE | 2022-08-12 07:30 | Progress Note-Pre Operative ---
Pre-Operative Progress Note Date H&P Reviewed: Aug 12, 2022 Time H&P Reviewed: 07:30 History & Physical: H&P Reviewed, Patient Examed, No changes noted Pre-Operative Diagnosis: adenocarcinoma of right colon DEEDEE SYLVESTER DO Aug 12, 2022 07:30
[2022-08-12] MEDS: LACTATED RINGERS 1,000 ML IV PRN ×2 (07:50→09:35)
[2022-08-12] MEDS ORDERED: LIDOCAINE PF 2% 5 ML (XYLOCAINE) VIAL ONE (07:54)
[2022-08-12] MEDS ORDERED: GLYCOPYRROLATE 0.2 MG/ML (ROBINUL) 2 ML VIAL ONE (07:54)
[2022-08-12] MEDS ORDERED: ONDANSETRON 4 MG/2 ML (SDV) Z0FRAN ONE (07:54)
[2022-08-12] MEDS ORDERED: proPOfol 200 MG/20 ML (DIPRIVAN) VIAL IV ONE (07:54)
[2022-08-12] MEDS ORDERED: NEOSTIGMINE (BLOXIVERZ ) 1 MG/1ML 10 ML VIAL ONE (07:55)
[2022-08-12] MEDS ORDERED: ROCURONIUM 50 MG/5 ML (ZEMURON) VIAL IV ONE ×2 (07:55→09:54)
[2022-08-12] MEDS ORDERED: fentaNYL INJ 100 MCG/2 ML AMP ONE (07:55)
[2022-08-12 08:14] LABS: BASOPHILS # (AUTO) 0.1 10^3/uL (0.0-0.1); BASOPHILS % (AUTO) 1 % (0-10); EOSINOPHILS # (AUTO) 0.2 10^3/uL (0.0-0.3); EOSINOPHILS % (AUTO) 3 % (0-10); HEMATOCRIT 31 % (40-54); HEMOGLOBIN 8.7 g/dL (13.3-17.7); LYMPHOCYTES # (AUTO) 0.6 10^3/uL (1.0-4.0); LYMPHOCYTES % (AUTO) 8 % (12-44); MEAN CORPUSCULAR HEMOGLOBIN 20 pg (25-34); MEAN CORPUSCULAR HGB CONC 28 g/dL (32-36); MEAN CORPUSCULAR VOLUME 71 fL (80-99); MEAN PLATELET VOLUME 9.8 fL (9.0-12.2); MONOCYTES # (AUTO) 0.9 10^3/uL (0.0-1.0); MONOCYTES % (AUTO) 12 % (0-12); NEUTROPHILS # (AUTO) 5.7 10^3/uL (1.8-7.8); NEUTROPHILS % (AUTO) 75 % (42-75); PLATELET COUNT 380 10^3/uL (130-400); WHITE BLOOD COUNT 7.6 10^3/uL (4.3-11.0)
[2022-08-12] MEDS ORDERED: ceFAZolin INJECTION 2,000 MG in NS (IVPB) 50 ML IV ONE (08:15)
[2022-08-12 08:23] LABS: ALBUMIN 3.9 GM/DL (3.2-4.5)
[2022-08-12 08:24] LABS: POTASSIUM 3.7 MMOL/L (3.6-5.0)
[2022-08-12 08:25] LABS: CALCIUM 9.3 MG/DL (8.5-10.1)
[2022-08-12 08:26] LABS: TOTAL PROTEIN 7.1 GM/DL (6.4-8.2)
[2022-08-12 08:28] LABS: BILIRUBIN,TOTAL 0.6 MG/DL (0.1-1.0)
[2022-08-12 08:30] LABS: CREATININE SERUM 0.65 MG/DL (0.60-1.30)
[2022-08-12] MEDS ORDERED: BUP/EPI 0.5% 1:200,000 (SENSORCAINE) 30 ML VIAL INJ ONE (09:06)
[2022-08-12] MEDS ORDERED: metroNIDAZOLE 500MG/100ML IVPB 100 ML ONE (09:12)
[2022-08-12] MEDS ORDERED: metroNIDAZOLE 500MG/100ML IVPB 100 ML IV ONE (09:16)
[2022-08-12] MEDS ORDERED: PHENYLEPHRINE 100 MCG/ML 10 ML (ANESTHESIA) SYR ONE (09:57)
[2022-08-12] MEDS ORDERED: ROPIVACAINE 5MG/ML 30ML VIAL ONE (10:53)
--- NOTE | 2022-08-12 11:03 | Progress Note-Post Operative ---
Post-Operative Progess Note Surgeon (s)/Head Machine Feeder (s) Surgeon DEEDEE SYLVESTER DO Head Machine Feeder: SOLO KEEN DO Pre-Operative Diagnosis adenocarcinoma of right colon Post-Operative Diagnosis same Procedure & Operative Findings Date of Procedure 08/12/22 Procedure Performed/Findings lap hand assisted right colon resection Anesthesia Type general Estimated Blood Loss Estimated blood loss (mL): 100 mL Specimens/Packing Specimens Removed right colon DEEDEE SYLVESTER DO Aug 12, 2022 11:03
[2022-08-12] MEDS ORDERED: ISOFLURANE (FORANE) 15 ML/15 MIN INHALATION ONE (11:28)
[2022-08-12] MEDS ORDERED: ONDANSETRON 4 MG/2 ML (SDV) Z0FRAN IVP PRN (11:30)
[2022-08-12] MEDS ORDERED: HYDROmorphone 2 MG/ML VIAL (DILAUDID) IV ONE (11:30)
[2022-08-12] MEDS ORDERED: morphine INJ 10 MG/ML 1ML (SYR OR VIAL) IVP ONE (11:30)
[2022-08-12] MEDS ORDERED: morphine INJ 10 MG/ML 1ML (SYR OR VIAL) ONE (11:54)
[2022-08-12] MEDS: LACTATED RINGERS 1,000 ML IV SCH ×2 (13:40→21:11)
[2022-08-12] MEDS: morphine INJ 4 MG/ML 1 ML (VIAL/SYRINGE) IVP PRN ×2 (13:41→16:55)
--- NOTE | 2022-08-12 15:12 | History & Physical ---
PATRICE GASTON 08/12/22 1512: History of Present Illness History of Present Illness Reason for visit/HPI Consult requested by Dr. Childs for medical management. Patient is a 81-year-old male from [facility] beds at the [facility] with a history of PAF, HTN, CAD, and insulin- dependent DM who is admitted on 08/12 following a right colon resection. 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 During his stay, he was found to have iron deficiency anemia and had a positive fecal occult blood test. He underwent endoscopy where he was found to have adenocarcinoma of the colon, and was scheduled for today's right colon resection. On exam, the patient is somnolent, but is able to be aroused slightly. The patient's family is at the bedside and report that this has been the case since coming out of surgery. When he is aroused, he complains of low back pain and then returns quickly to sleep. Patient's family reports that he has a decubitus ulcer near his sacrum. Patient has no other complaints. Date of Admission Aug 12, 2022 at 07:03 Date Seen by a Provider: Aug 12, 2022 Time Seen by a Provider: 03:00 I consulted on this patient on 08/12/22 15:02 Attending Physician [facility] Admitting Physician Admitting Physician: Herbert Childs DO Attending Physician: Herbert Childs DO Consult Allergies and Home Medications Allergies Coded Allergies: No Known Drug Allergies (Unverified , 08/11/22) Patient Home Medication List Home Medication List Reviewed: Yes Acetaminophen (Tylenol) 325 Mg Tablet, 650 MG PO Q4H PRN for PAIN-MILD (1-4) OR TEMPATURE, (Reported) Entered as Reported by: JOSE BURR on 01/03/191417 Last Action: Reviewed Acetaminophen (Tylenol) 325 Mg Tablet, 650 MG PO DAILY, (Reported) Entered as Reported by: JOSE BURR on 01/03/191417 Last Action: Reviewed Albuterol Sulfate (Albuterol Sulfate) 2.5 Mg/3 Ml Vial.neb, 3 ML NEB Q4H PRN for SHORTNESS OF BREATH, (Reported) Entered as Reported by: ELVIS GOMEZ on 09/02/20 130 Last Action: Reviewed Apixaban (Eliquis) 5 Mg Tablet, 5 MG PO 0600,1400, (Reported) Entered as Reported by: ELVIS GOMEZ on 01/13/21 0947 Last Action: Reviewed Artificial Tears (Artificial Tears) 1.4 % Soln, 1 DROP OU 0600,1400, (Reported) Entered as Reported by: ELVIS GOMEZ on 07/21/221117 Last Action: Reviewed Atorvastatin Calcium (Atorvastatin Calcium) 10 Mg Tablet, 10 MG PO HS, (Reported) Entered as Reported by: JOSE BURR on 01/03/191417 Last Action: Reviewed Benzocaine/Menthol (Cepacol Sore Throat Lozenge) 15 Mg-3.6 Mg Lozenge, 1 EACH MM UD PRN for COUGH, (Reported) Entered as Reported by: ELVIS GOMEZ on 08/13/22 1315 Last Action: Reviewed Cetirizine HCl (Cetirizine HCl) 10 Mg Tablet, 10 MG PO DAILY, (Reported) Entered as Reported by: ELVSI GOMEZ on 09/02/20 130 Last Action: Reviewed Dapagliflozin Propanediol (Farxiga) 10 Mg Tablet, 10 MG PO DAILY, (Reported) Entered as Reported by: ELVIS GOMEZ on 09/02/201306 Last Action: Reviewed Docusate Sodium (Colace) 100 Mg Capsule, 200 MG PO HS, (Reported) Entered as Reported by: JOSE BURR on 01/03/191417 Last Action: Reviewed Donepezil HCl (Donepezil HCl) 10 Mg Tablet, 10 MG PO HS, (Reported) Entered as Reported by: ELVIS GOMEZ on 07/21/221117 Last Action: Reviewed Dulaglutide (Trulicity) 0.75 Mg/0.5 Ml Pen.injctr, 0.75 MG SQ FRI, (Reported) Entered as Reported by: ELVIS GOMEZ on 07/21/221117 Last Action: Reviewed Escitalopram Oxalate (Escitalopram Oxalate) 20 Mg Tablet, 20 MG PO DAILY, (Reported) Entered as Reported by: ELVIS GOMEZ on 07/21/221117 Last Action: Reviewed Gabapentin (Neurontin) 300 Mg Capsule, 300 MG PO 0600,1000,1400, (Reported) Entered as Reported by: ELVIS GOMEZ on 09/02/20 1307 Last Action: Reviewed Insulin Detemir (Levemir Flextouch) 100 Unit/Ml (3 Ml) Insuln.pen, 15 UNIT SQ 0600,1800, (Reported) Entered as Reported by: ELVIS GOMEZ on 07/21/22 111 Last Action: Reviewed Insulin Lispro (Insulin Lispro Kwikpen U-100) 100 Unit/Ml Insuln.pen, 5 UNITS SQ AC, (Reported) Entered as Reported by: ELVIS GOMEZ on 07/21/221117 Last Action: Reviewed Loperamide HCl (Loperamide) 2 Mg Capsule, 2-4 MG PO UD PRN for DIARRHEA, (Reported) Entered as Reported by: JOSE BURR on 01/03/191417 Last Action: Reviewed Magnesium Hydroxide (Milk of Magnesia) 400 Mg/5 Ml Oral.susp, 30 ML PO DAILY PRN for CONSTIPATION-7TH LINE, (Reported) Entered as Reported by: JOSE BURR on 01/03/191417 Last Action: Reviewed Menthol (Biofreeze) 118 Ml Gel..ml., 1 APPLIC TP Q6H PRN for SHOULDER PAIN, (Reported) Entered as Reported by: JOSE BURR on 01/03/191417 Last Action: Reviewed Metformin HCl (Metformin HCl ER) 500 Mg Tab.er.24h, 1,000 MG PO 0600,1400, (Reported) Entered as Reported by: ELVIS GOMEZ on 09/02/20 1307 Last Action: Reviewed Metoprolol Succinate (Metoprolol Succinate) 50 Mg Tab.er.24h, 50 MG PO DAILY, (Reported) Entered as Reported by: ELVIS GOMEZ on 08/13/22 1315 Last Action: Reviewed Polyethylene Glycol 3350 (Miralax) 17 Gm Powd.pack, 17 GM PO Q12H PRN for CONSTIPATION-2ND LINE, (Reported) Entered as Reported by: JOSE BURR on 01/03/191417 Last Action: Reviewed Propylene Glycol/Peg 400/Pf (Systane Hydration Pf 0.4-0.3%) 0.3 %-0.4 % Droperette, 1 DROP OU Q4H PRN for DRY EYES, (Reported) Entered as Reported by: ELVIS GOMEZ on 07/21/22 1118 Last Action: Reviewed Discontinued Medications Benzocaine/Menthol (Cepacol Sore Throat Lozenge) 15 Mg-3.6 Mg Lozenge, 1 EACH MM UD PRN for COUGH, (Reported) Discontinued Reason: Duplicate Order Entered as Reported by: ELVIS GOMEZ on 07/21/22 1118 Last Action: Discontinued Metoprolol Succinate (Metoprolol Succinate) 50 Mg Tab.er.24h, 50 MG PO DAILY Discontinued Reason: Duplicate Order Prescribed by: VALENTINA STRATTON on 07/24/22 1031 Last Action: Discontinued Past Apxnsky-Uocens-Kamzfq Hx Patient Social History Tobacco Use?: No Smoking Status: Never a Smoker Substance use?: No Alcohol Use?: No Pt feels they are or have been: No Immunizations Up To Date Date of Influenza Vaccine: Mar 23, 2022 First/Initial COVID19 Vaccinat: 07/04/2020 Second COVID19 Vaccination Ayo: 07/25/2020 Tetanus Booster (TDap): Less Than 5 Years Date of Pneumonia Vaccine: Mar 24, 2019 Seasonal Allergies Seasonal Allergies: No Current Status Advance Directives: Yes Advance Directive Location: Copy placed in chart Communicates: Verbally Primary Language: Puerto Rican Preferred Spoken Language: [place] Rican Is interpretation needed?: No Sensory deficits: Vision impairment, Hearing impairment Past Medical History Surgeries: Orthopedic Pneumonia Currently Using CPAP: No Currently Using BIPAP: No Chronic Edema/Swelling, High Cholesterol, Hypertension Dementia Benign Prostatic Hyperpl, Bladder Infection, Renal Failure, UTI-Chronic Chronic Constipation Arthritis, Foot Drop Diabetes, Insulin dep Cataract Loss of Vision: Bilateral Hearing Impairment: Hard of Hearing, Bilateral Hearing Aide Colon Depression Blood Disorders: No Family Medical History Cardiovascular disease 19 MOTHER (CHF) Diabetes mellitus 19 MOTHER Prostate cancer 19 FATHER No Pertinent Family Hx ADMITTED 09/09/20 WITH SEPTIC SHOCK, RESPIRATORY FAILURE, PNEUMONIA ADMITTED 01/11/21 WITH SEPTIC SHOCK, PNEUMONIA, UTI, RESPIRATORY FAILURE Review of Systems ROS-Unable to Obtain: Unable to obtain due to sedation Physical Exam Vital Signs Vital Signs - First Documented Capillary Refill : Less Than 3 Seconds Height, Weight, BMI Height: 6'2.00" Weight: 324lbs. 3.0oz. 147.433275pw; 33.98 BMI Method:Stated General Appearance: No Apparent Distress, WD/WN, Obese, Other (somnolent) HEENT: PERRL/EOMI, Pharynx Normal Neck: Normal Inspection, Non Tender, Supple Respiratory: Chest Non Tender, Lungs Clear, No Respiratory Distress Cardiovascular: Regular Rate, Rhythm, No Edema, Normal Peripheral Pulses Gastrointestinal: Soft, Abnormal Bowel Sounds (hypoactive), Other (scant bleeding at incision site) Rectal: Deferred Back: No Vertebral Tenderness Extremity: Normal Capillary Refill, No Pedal Edema Neurologic/Psychiatric: Other (somnolent) Skin: Normal Color, Warm/Dry Lymphatic: No Adenopathy Assessment/Plan Assessment and Plan 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 POD 1 Awaiting pathology Monitor H&H, transfuse as needed Consult PT/OT Advance diet as tolerated Pt currently receiving 2mg morphine Q2H PRN IV, will switch to Lortab 5m PO Q4H PRN once patient is less sedated and able to take oral medications Paroxysmal atrial fibrillation Currently holding eliquis 5mg PO daily Monitor with telemetry Decubitus ulcer Consult wound care HTN Holding patient's metoprolol 50mg PO daily due to some soft blood pressures Debility Consult PT/OT, patient does not ambulate at baseline DM, insulin-dependent SSI Most recent glucose measured at 152 SHANNAN PEMBERTON MD 08/12/222038: Allergies and Home Medications Allergies Coded Allergies: No Known Drug Allergies (Unverified , 08/11/22) Patient Home Medication List Acetaminophen (Tylenol) 325 Mg Tablet, 650 MG PO Q4H PRN for PAIN-MILD (1-4) OR TEMPATURE, (Reported) Entered as Reported by: JOSE BURR on 01/03/19 1418 Last Action: Reviewed Acetaminophen (Tylenol) 325 Mg Tablet, 650 MG PO DAILY, (Reported) Entered as Reported by: JOSE BURR on 01/03/19 141 Last Action: Reviewed Albuterol Sulfate (Albuterol Sulfate) 2.5 Mg/3 Ml Vial.neb, 3 ML NEB Q4H PRN for SHORTNESS OF BREATH, (Reported) Entered as Reported by: ELVIS GOMEZ on 09/02/20 1307 Last Action: Reviewed Apixaban (Eliquis) 5 Mg Tablet, 5 MG PO 0600,1400, (Reported) Entered as Reported by: ELVIS GOMEZ on 01/13/21 0947 Last Action: Reviewed Artificial Tears (Artificial Tears) 1.4 % Soln, 1 DROP OU 0600,1400, (Reported) Entered as Reported by: ELVIS GOMEZ on 07/21/221117 Last Action: Reviewed Atorvastatin Calcium (Atorvastatin Calcium) 10 Mg Tablet, 10 MG PO HS, (Reported) Entered as Reported by: JOSE BURR on 01/03/191417 Last Action: Reviewed Benzocaine/Menthol (Cepacol Sore Throat Lozenge) 15 Mg-3.6 Mg Lozenge, 1 EACH MM UD PRN for COUGH, (Reported) Entered as Reported by: ELVIS GOMEZ on 08/13/22 1315 Last Action: Reviewed Cetirizine HCl (Cetirizine HCl) 10 Mg Tablet, 10 MG PO DAILY, (Reported) Entered as Reported by: ELVIS GOMEZ on 09/02/201306 Last Action: Reviewed Dapagliflozin Propanediol (Farxiga) 10 Mg Tablet, 10 MG PO DAILY, (Reported) Entered as Reported by: ELVIS GOMEZ on 09/02/201306 Last Action: Reviewed Docusate Sodium (Colace) 100 Mg Capsule, 200 MG PO HS, (Reported) Entered as Reported by: JOSE BURR on 01/03/191417 Last Action: Reviewed Donepezil HCl (Donepezil HCl) 10 Mg Tablet, 10 MG PO HS, (Reported) Entered as Reported by: ELVIS GOMEZ on 07/21/221117 Last Action: Reviewed Dulaglutide (Trulicity) 0.75 Mg/0.5 Ml Pen.injctr, 0.75 MG SQ FRI, (Reported) Entered as Reported by: ELVIS GOMEZ on 07/21/221117 Last Action: Reviewed Escitalopram Oxalate (Escitalopram Oxalate) 20 Mg Tablet, 20 MG PO DAILY, (Reported) Entered as Reported by: ELVIS GOMEZ on 07/21/221117 Last Action: Reviewed Gabapentin (Neurontin) 300 Mg Capsule, 300 MG PO 0600,1000,1400, (Reported) Entered as Reported by: ELVIS GOMEZ on 09/02/201306 Last Action: Reviewed Insulin Detemir (Levemir Flextouch) 100 Unit/Ml (3 Ml) Insuln.pen, 15 UNIT SQ 0600,1800, (Reported) Entered as Reported by: ELVIS GOMEZ on 07/21/221117 Last Action: Reviewed Insulin Lispro (Insulin Lispro Kwikpen U-100) 100 Unit/Ml Insuln.pen, 5 UNITS SQ AC, (Reported) Entered as Reported by: ELVIS GOMEZ on 07/21/221117 Last Action: Reviewed Loperamide HCl (Loperamide) 2 Mg Capsule, 2-4 MG PO UD PRN for DIARRHEA, (Reported) Entered as Reported by: JOSE BURR on 01/03/191417 Last Action: Reviewed Magnesium Hydroxide (Milk of Magnesia) 400 Mg/5 Ml Oral.susp, 30 ML PO DAILY PRN for CONSTIPATION-7TH LINE, (Reported) Entered as Reported by: JOSE BURR on 01/03/191417 Last Action: Reviewed Menthol (Biofreeze) 118 Ml Gel..ml., 1 APPLIC TP Q6H PRN for SHOULDER PAIN, (Reported) Entered as Reported by: JOSE BURR on 01/03/191417 Last Action: Reviewed Metformin HCl (Metformin HCl ER) 500 Mg Tab.er.24h, 1,000 MG PO 0600,1400, (Reported) Entered as Reported by: ELVIS GOMEZ on 09/02/20 1307 Last Action: Reviewed Metoprolol Succinate (Metoprolol Succinate) 50 Mg Tab.er.24h, 50 MG PO DAILY, (Reported) Entered as Reported by: ELVIS GOMEZ on 08/13/22 1315 Last Action: Reviewed Polyethylene Glycol 3350 (Miralax) 17 Gm Powd.pack, 17 GM PO Q12H PRN for CONSTIPATION-2ND LINE, (Reported) Entered as Reported by: JOSE BURR on 01/03/191417 Last Action: Reviewed Propylene Glycol/Peg 400/Pf (Systane Hydration Pf 0.4-0.3%) 0.3 %-0.4 % Droperette, 1 DROP OU Q4H PRN for DRY EYES, (Reported) Entered as Reported by: ELVIS GOMEZ on 07/21/221117 Last Action: Reviewed Discontinued Medications Benzocaine/Menthol (Cepacol Sore Throat Lozenge) 15 Mg-3.6 Mg Lozenge, 1 EACH MM UD PRN for COUGH, (Reported) Discontinued Reason: Duplicate Order Entered as Reported by: ELVISGurpreet GOMEZ on 07/21/22 1118 Last Action: Discontinued Metoprolol Succinate (Metoprolol Succinate) 50 Mg Tab.er.24h, 50 MG PO DAILY Discontinued Reason: Duplicate Order Prescribed by: VALENTINA STRATTON on 07/24/22 1031 Last Action: Discontinued Past Sogwxgi-Qaigcg-Pchdza Hx Family Medical History Cardiovascular disease 19 MOTHER (CHF) Diabetes mellitus 19 MOTHER Prostate cancer 19 FATHER Review of Systems Constitutional: see HPI Assessment/Plan Assessment and Plan Patient admitted to the hospital for colon resection due to recently diagnosed adenocarcinoma. I am consulted for medical management. He is quite sedated at this time but has family members at the bedside. They report he does have baseline dementia. When he awakens he complains of back pain but unless he is woken up he is sleeping soundly and does not appear to be in any distress. I discussed with his family the indication for pain medicine and balancing his mentation and making sure he is not too sleepy with treating his pain. At this time we will let him rest as when he is sleeping he appears quite comfortable. They are in agreement with that plan. I discussed with Dr. Childs and we will hold his Eliquis at least for couple of days and monitor his healing and postoperative bleeding. He will remain n.p.o. so I will treat him with a sliding scale for insulin. His fasting blood sugar was 152 so is well controlled. His blood pressures are also currently well controlled and again as he is n.p.o. I will hold his home medicines. Family did report that he had a small bedsore that was found either in surgery or by the nursing facility prior to admission. I discussed this with our wound care nurse Marci who will see him today. Admission Diagnosis Admission Status: Inpatient Order (span 2 midnights) Reason for Inpatient Admission: see above Supervisory-Addendum Brief Verification & Attestation Participated in pt care: history, MDM, physical Personally performed: exam, history, MDM, supervision of care Care discussed with: Medical Student Procedures: n/a Results interpretation: Verified all documentation Verification and Attestation of Medical Student E/M Service A medical student performed and documented this service in my presence. I reviewed and verified all information documented by the medical student and made modifications to such information, when appropriate. I personally performed the physical exam and medical decision making. Shannan Pemberton, Aug 12, 2022,20:39 PATRICE GASTON Aug 12, 2022 15:12 SHANNAN PEMBERTON MD Aug 12, 2022 20:39
[2022-08-12] MEDS ORDERED: RT-ALBUTEROL SULF 2.5 MG/3 ML PRE-MIX VIAL INH PRN (16:00)
[2022-08-12] MEDS ORDERED: inSUlin ASPART (NovoLOG) 1 UNIT/0.01 ML (CHARGE PER UNIT) SC SCH (16:00)
--- NOTE | 2022-08-12 16:06 | Physical Therapy Progress Note ---
Therapy Progress Note Pt remains very lethargic from surgery recovery. Plan to evaluate tomorrow, 08/13/22. KIRSTIE CNAELA PT Aug 12, 2022 16:06
[2022-08-12] MEDS: metroNIDAZOLE 500MG/100ML IVPB 100 ML IV SCH (16:56)
[2022-08-12] MEDS: inSUlin ASPART (NovoLOG) 1 UNIT/0.01 ML (CHARGE PER UNIT) SC SCH ×2 (16:56→21:13)
[2022-08-12] MEDS: ceFAZolin INJECTION 2,000 MG in NS (IVPB) 50 ML IV SCH ×2 (17:00→23:22)
[2022-08-12] MEDS: FAMOTIDINE 20MG/2ML IV (PEPCID) IVP SCH (21:11)
[2022-08-13] MEDS: metroNIDAZOLE 500MG/100ML IVPB 100 ML IV SCH (00:58)
[2022-08-13 04:12] VITALS: BP 134/64
[2022-08-13] MEDS: LACTATED RINGERS 1,000 ML IV SCH ×3 (04:12→18:13)
[2022-08-13] MEDS: inSUlin ASPART (NovoLOG) 1 UNIT/0.01 ML (CHARGE PER UNIT) SC SCH ×4 (06:05→23:09)
[2022-08-13 06:08] LABS: HEMATOCRIT 33 % (40-54); HEMOGLOBIN 9.3 g/dL (13.3-17.7); MEAN CORPUSCULAR HEMOGLOBIN 20 pg (25-34); MEAN CORPUSCULAR HGB CONC 28 g/dL (32-36); MEAN CORPUSCULAR VOLUME 72 fL (80-99); MEAN PLATELET VOLUME 9.7 fL (9.0-12.2); PLATELET COUNT 368 10^3/uL (130-400); WHITE BLOOD COUNT 11.2 10^3/uL (4.3-11.0)
[2022-08-13 06:12] LABS: POTASSIUM 3.8 MMOL/L (3.6-5.0)
[2022-08-13 06:13] LABS: CALCIUM 8.9 MG/DL (8.5-10.1)
[2022-08-13 06:17] LABS: CREATININE SERUM 0.73 MG/DL (0.60-1.30)
[2022-08-13 06:20] LABS: MAGNESIUM 1.9 MG/DL (1.6-2.4)
--- NOTE | 2022-08-13 06:41 | Progress Note - Surgery ---
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 Pt was laying in bed comfortably sleeping before interview. Pt states he is does not have any pain but when he is was changing positions to bed to one side or the other pt seemed to be in pain. Per nurse pt hasn't had a bowel movement and isn't sure about passing gas; she also states that he has some confusion. Pt claims he has been passing gas. Per medicine note, patient is receiving Morphine for pain and as pain decreases will switch to Lortab. PT is producing good urine w/ a rate of 1.7 cc/kg/hr in the last 12hrs. Pt is wheelchair bound per nurse, so pt will not be able to ambulate. PT/OT has been ordered per medicine. PT saw pt yesterday, but was due to pt being lethargic, pt was not evaluated and will return tomorrow. Pt should be seen by OT today. Review of Systems General: No Chills Pulmonary: No Dyspnea, No Cough Cardiovascular: No: Chest Pain, Palpitations Gastrointestinal: No: Nausea, Vomiting, Abdominal Pain (Pt claims doesn't have abdominal pain but w/ positional change it seems like he could be in pain) Objective Exam Vital Signs Date Time Temp Pulse Resp B/P (MAP) Pulse Ox O2 Delivery O2 Flow Rate FiO2 08/13/22 04:12 36.3 68 22 134/64 (87) 95 Room Air 08/13/22 01:00 64 08/12/22 23:40 36.1 63 20 141/63 (89) 95 Room Air 08/12/22 21:26 Room Air 08/12/22 19:00 67 08/12/22 19:00 36.1 67 20 135/61 (85) Room Air 08/12/22 17:15 65 08/12/22 16:31 36.2 66 20 143/68 (93) 94 Room Air 08/12/22 15:46 35.6 61 94 08/12/22 14:35 Room Air 08/12/22 13:47 35.6 61 18 113/55 (74) 94 Room Air 08/12/22 12:20 OxyMask 2.00 08/12/22 12:20 36.3 20 119/62 (81) 100 OxyMask 2.00 08/12/22 12:15 OxyMask 2.00 08/12/22 12:10 20 104/60 (75) 100 OxyMask 2.00 08/12/22 12:00 20 104/60 (75) 99 Room Air 08/12/22 12:00 Room Air 08/12/22 11:50 20 128/68 (88) 99 OxyMask 2.00 08/12/22 11:45 OxyMask 2.00 08/12/22 11:40 20 126/68 (87) 99 OxyMask 2.00 08/12/22 11:30 20 132/75 (94) 99 OxyMask 4.00 08/12/22 11:30 OxyMask 5.00 08/12/22 11:20 20 124/73 (90) 100 OxyMask 4.00 08/12/22 11:17 36.1 16 133/71 (91) 100 OxyMask 5.00 08/12/22 11:17 OxyMask 5.00 08/12/22 07:50 97 Room Air 08/12/22 07:50 36.3 63 18 117/43 (67) 97 Room Air I & O 08/13/22 07:00 Intake Total 1200 ml Output Total 1125 ml Balance 75 ml Capillary Refill : Less Than 3 Seconds General Appearance: No Apparent Distress, WD/WN, Obese, Other (somnolent) HEENT: PERRL/EOMI, Pharynx Normal Neck: Normal Inspection, Non Tender, Supple Respiratory: Chest Non Tender, Lungs Clear, No Respiratory Distress Cardiovascular: Regular Rate, Rhythm, No Edema, Normal Peripheral Pulses Peripheral Pulses: 2+ Radial Pulses (R), 2+ Radial Pulses (L) Gastrointestinal: non tender (Non-tender during palpation ), soft, abnormal bowel sounds (Greater activity in LUQ and RLQ though still hypoactive); No di stended Extremity: Normal Capillary Refill, No Pedal Edema Neurologic/Psychiatric: Alert, Other (somnolent) Skin: Normal Color, Warm/Dry, Other (Slight sanguenous drainage at large midline incision site; Dressing was changed right before examined ) Lymphatic: No Adenopathy Results Lab Laboratory Tests 08/12/22 07:49: Glucometer 129H 08/12/22 08:00: White Blood Count 7.6, Red Blood Count 4.33, Hemoglobin 8.7L, Hematocrit 31L, Mean Corpuscular Volume 71L, Mean Corpuscular Hemoglobin 20L, Mean Corpuscular Hemoglobin Concent 28L, Red Cell Distribution Width 19.2H, Platelet Count 380, Mean Platelet Volume 9.8, Immature Granulocyte % (Auto) 0, Neutrophils (%) (Auto) 75, Lymphocytes (%) (Auto) 8L, Monocytes (%) (Auto) 12, Eosinophils (%) (Auto) 3, Basophils (%) (Auto) 1, Neutrophils # (Auto) 5.7, Lymphocytes # (Auto) 0.6L, Monocytes # (Auto) 0.9, Eosinophils # (Auto) 0.2, Basophils # (Auto) 0.1, Immature Granulocyte # (Auto) 0.0, Sodium Level 136, Potassium Level 3.7, Chloride Level 102, Carbon Dioxide Level 22, Anion Gap 12, Blood Urea Nitrogen 14, Creatinine 0.65, Estimat Glomerular Filtration Rate 95, BUN/Creatinine Ratio 22, Glucose Level 126H, Calcium Level 9.3, Corrected Calcium 9.4, Total Bilirubin 0.6, Aspartate Amino Transf (AST/SGOT) 16, Alanine Aminotransferase (ALT/SGPT) 10, Alkaline Phosphatase 79, Total Protein 7.1, Albumin 3.9, Carcinoembryonic Antigen 10.6H 08/12/22 11:22: Glucometer 152H 08/12/22 16:30: Glucometer 198H 08/12/22 21:11: Glucometer 191H 08/12/22 23:17: Glucometer 173H 08/13/22 05:48: White Blood Count 11.2H, Red Blood Count 4.59, Hemoglobin 9.3L, Hematocrit 33L, Mean Corpuscular Volume 72L, Mean Corpuscular Hemoglobin 20L, Mean Corpuscular Hemoglobin Concent 28L, Red Cell Distribution Width 19.8H, Platelet Count 368, Mean Platelet Volume 9.7, Sodium Level 139, Potassium Level 3.8, Chloride Level 104, Carbon Dioxide Level 19L, Anion Gap 16H, Blood Urea Nitrogen 18, Creatinine 0.73, Estimat Glomerular Filtration Rate 92, BUN/Creatinine Ratio 25, Glucose Level 170H, Calcium Level 8.9, Magnesium Level 1.9 08/13/22 05:56: Glucometer 179H Assessment/Plan Assessment/Plan Assessment/Plan S/P Day 1 Right Colon Resection Anemia Mild Leukocytosis Debilitated Type II Diabetes PT/OT; follow their recommended strategies for mobilization due to pt's debility status Currently NPO, Advance Diet to Clears MAT Protocol [place] Dressing Changes Tight Glucose Control Pain Medications; try avoid using opioids due to post-operative ileus risk Monitor I&O's Incentive Spirometry DVT ppx HERBERT CHILDS DO 08/13/22 1739: Subjective Subjective/Events-last exam Patient pain controlled. Using IS some. Not able to ambulate. No new complaints. Has had some lethargy/confusion. Denies n/v fever sweats chills shortness of breath or chest pain. Family at [facility]. Objective Exam General Appearance: No Apparent Distress, Obese HEENT: PERRL/EOMI, Normal ENT Inspection Neck: Normal Inspection, Non Tender Respiratory: Chest Non Tender, No Accessory Muscle Use, No Respiratory Distress Cardiovascular: Regular Rate, Rhythm, No JVD Gastrointestinal: non tender (incisions c/d/i), soft Extremity: Normal Capillary Refill, Non Tender Neurologic/Psychiatric: Alert, Other (slight confusion) Skin: Normal Color, Warm/Dry Lymphatic: No Adenopathy Assessment/Plan Assessment/Plan Assessment/Plan S/P Day 1 Lap hand assisted Right Colon Resection Anemia Debilitated Type II Diabetes PT/OT; follow their recommended strategies for mobilization due to pt's debility status Currently NPO, Ice chips- await bowel function MAT Protocol [place] Dressing Changes Tight Glucose Control Pain Medications; try avoid using opioids due to post-operative ileus risk Monitor I&O's Incentive Spirometry DVT ppx-scd's Supervisory-Addendum Brief Verification & Attestation Participated in pt care: history, MDM, physical Personally performed: exam, history, MDM, supervision of care Care discussed with: Medical Student Procedures: n/a Results interpretation: Verified all documentation Verification and Attestation of Medical Student E/M Service A medical student performed and documented this service in my presence. I reviewed and verified all information documented by the medical student and made modifications to such information, when appropriate. I personally performed the physical exam and medical decision making. Herbert Childs Aug 13, 2022,17:40 HINA MALDONADO Aug 13, 2022 06:41 HERBERT CHILDS DO Aug 13, 2022 17:39
[2022-08-13 07:03] VITALS: BP 155/68
--- NOTE | 2022-08-13 08:26 | Anesthesia-General Post-Op ---
General Patient Condition Mental Status/LOC: Same as Preop Cardiovascular: Satisfactory Nausea/Vomiting: Absent Respiratory: Satisfactory Pain: Controlled Complications: Absent Post Op Complications Complications None Follow Up Care/Instructions Patient Instructions None needed. Anesthesia/Patient Condition Patient Condition Patient is doing well, no complaints, stable vital signs, no apparent adverse anesthesia problems. No complications reported per nursing. HERSON LAW CRNA Aug 13, 2022 08:26
--- NOTE | 2022-08-13 09:05 | Occupational Therapy Eval ---
OT Evaluation-General/PLF Medical Diagnosis Admission Date Aug 12, 2022 at 07:03 Medical Diagnosis: Adenocarcinoma of the colon Onset Date: Aug 12, 2022 Therapy Diagnosis Therapy Diagnosis: weakness Height/Weight Height (Feet): 6 Height (Inches): 2.00 Weight (Pounds): 324 Weight (Ounces): 3.0 Precautions Precautions/Isolations: Airborne Isolation, Fall Prevention, Standard Precauti ons Weight Bear Status Patient is non ambulatory Referral Referral Reason: Activity Tolerance, Evaluation/Treatment, Strengthening/ROM Medical History Pertinent Medical History: Arthritis, DM, Dementia, HTN Current History . Patient is a 81-year-old male from [facility] with a history of PAF, HTN, CAD, and insulin-dependent DM who is admitted on 08/12 following a right colon resection. 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 During his stay, he was found to have iron deficiency anemia and had a positive fecal occult blood test. He underwent endoscopy where he was found to have adenocarcinoma of the colon, and was scheduled for right colon resection.08/13/22 Positive for COVID Reviewed History: Yes Social History Home: Long Term ([place]) Entry Into Home: Level Entry ADL-Prior Level of Function SCALE: Activities may be completed with or without assistive devices. 7-Kwboidobcn-wabunwo completes the activity by him/herself with no assistance from a helper. 5-Set-up or Clean-up Assistance-helper sets up or cleans up; patient completes activity. Joseph assists only prior to or following the activity. 4-Supervision or Touching Assistance-helper provides verbal cues and/or rosanna eliot/steadying and/or contact guard assistance as patient completes activity. Assistance may be provided throughout the activity or intermittently. 3-Partial/Moderate Assistance-helper does LESS THAN HALF the effort. Joseph lifts, holds or supports trunk or limbs, but provides less than half the effort. 2-Substantial/Maximal Assistance-helper does MORE THAN HALF the effort. Joseph lifts or holds trunk or limbs and provides more than half the effort. 6-Skikmcsld-vbsbqf does ALL the effort. Patient does none of the effort to complete the activity. Or, the assistance of 2 or more helpers is required for the patient to complete the activity. If activity was not attempted, code reason: 7-Patient Refused. 9-Not Applicable-not attempted and the patient did not perform the activity before the current illness, exacerbation or injury. 10-Not Attempted due to Environmental Limitations-(lack of equipment, weather restraints, etc.). 88-Not Attempted due to Medical Conditions or Safety Concerns. Self Care: Needed Some Help Functional Cognition: Needed Some Help Unable to obtain accurate information. Patient reports he is in [place], also reports he is [place] [facility] [place] Hard of hearing and responds with unrelated answerers Drive Self: No OT Current Status Subjective Resting in bed on arrival, confused w/ location, reports he needs to see the doctor about his stomach, OT orients patient Pain Numeric Pain Scale: 4 Location Body Site: Abdomen Mental Status/Objective Patient Orientation: Person, Confused, Eyes Open Attachments: Hassan Catheter, IV (fumbles w/ IV insertion site) Current Upper Extremity ROM Limited ROM, BUE 90 shoulder flexion in gravity assisted, does not follow directions for MMT ADL-Treatment Eating (QC): 7 (woke from [facility], ) Oral Hygiene (QC): 4 Shower/Bathe Self (QC): 88 Upper Body Dressing (QC): 3 Lower Body Dressing (QC): 1 (non ambulatory, unable to follow commands for tra nsfer, unable to dertermine PLOF for transfer, requires 2 person ) On/Off Footwear (QC): 1 Toileting Hygiene (QC): [address], disposable tab brief in place Other Treatments Sits on EOB 10 min unsupported once positioned, Education OT Patient Education: Correct positioning, Modified ADL techniques, Progress toward Goal/Update tx plan, Purpose of tx/functional activities, Reviewed precautions, Rehab process, Safety issues, Transfer techniques Teaching Recipient: Patient Teaching Methods: Demonstration, Discussion Response to Teaching: Unable to Comprehend, Reinforcement Needed OT Nephrology Nurse Goals Shelter Goals Eating (QC): 6 Oral Hygiene (QC): 5 Toileting Hygiene (QC): 1 Shower/Bathe Self (QC): 1 Upper Body Dressing (QC): 4 Lower Body Dressing (QC): 1 On/Off Footwear (QC): 2 1=Demonstrate adherence to instructed precautions during ADL tasks. 2=Patient will verbalize/demonstrate understanding of assistive devices/mod ifications for ADL. 3=Patient will improve strength/tolerance for activity to enable patient to perform ADL's. OT Education/Plan Problem List/Assessment Assessment: Decreased Activ Tolerance, Decreased Safety Aware, Decreased UE Strength, Impaired Bed Mobility, Impaired Cognition, Impaired Coordination, Impaired Self-Care Skills Discharge Recommendations Plan/Recommendations: Continue POC Therapy Discharge Recommendati: Post Acute OT Treatment Plan/Plan of Care Treatment,Training & Education: Yes Patient would benefit from OT for education, treatment and training to promote independence in ADL's, mobility, safety and/or upper extremity function for ADL's. Plan of Care: ADL Retraining, Cognitive Retraining, Functional Mobility, Group Exercise/Act as Ind, UE Funct Exercise/Act Treatment Duration: Aug 29, 2022 Frequency: 3 times per week (3-5 times per week) Estimated Hrs Per Day: .25 hour per day Agreement: Yes Rehab Potential: Fair Time Start Time: 08:30 Stop Time: 09:00 DATE: Aug 13, 2022 Total Time Billed (hr/min): 30 Billed Treatment Time 1 EVH 1, FA 1 30 min NENA SANTIAGO OT Aug 13, 2022 09:05
[2022-08-13] MEDS: FAMOTIDINE 20MG/2ML IV (PEPCID) IVP SCH ×2 (09:47→20:50)
--- NOTE | 2022-08-13 10:50 | Progress Note - Surgery ---
PATRICE GASTON 08/13/22 10:50am: Subjective Date Seen by a Provider: Aug 13, 2022 Time Seen by a Provider: 10:45 Subjective/Events-last exam Patient is awake and alert in his bed this morning. Patient is slightly disoriented but also known to have dementia, unsure of where he is in relation to his baseline. Patient reports that he is feeling well today and is not currently having any pain. His last dose of morphine was around 17:00 last night. Patient has no other complaints and states he is doing well. Review of Systems General: No Chills, No Malaise HEENT: No Head Aches, No Eye Pain, No Ear Pain Pulmonary: No Dyspnea, No Cough Cardiovascular: No: Chest Pain, Edema Gastrointestinal: No: Nausea, Vomiting Genitourinary: No Dysuria, No Hematuria Musculoskeletal: No: neck pain, back pain Neurological: No: Weakness, Numbness Objective Exam Vital Signs Date Time Temp Pulse Resp B/P (MAP) Pulse Ox O2 Delivery O2 Flow Rate FiO2 08/13/22 08:49 93 Room Air 08/13/22 07:24 60 08/13/22 07:03 35.6 60 18 155/68 (97) 93 Room Air 08/13/22 04:12 36.3 68 22 134/64 (87) 95 Room Air 08/13/22 01:00 64 08/12/22 23:40 36.1 63 20 141/63 (89) 95 Room Air 08/12/22 21:26 Room Air 08/12/22 19:00 67 08/12/22 19:00 36.1 67 20 135/61 (85) Room Air 08/12/22 17:15 65 08/12/22 16:31 36.2 66 20 143/68 (93) 94 Room Air 08/12/22 15:46 35.6 61 94 08/12/22 14:35 Room Air 08/12/22 13:47 35.6 61 18 113/55 (74) 94 Room Air 08/12/22 12:20 OxyMask 2.00 08/12/22 12:20 36.3 20 119/62 (81) 100 OxyMask 2.00 08/12/22 12:15 OxyMask 2.00 08/12/22 12:10 20 104/60 (75) 100 OxyMask 2.00 08/12/22 12:00 20 104/60 (75) 99 Room Air 08/12/22 12:00 Room Air 08/12/22 11:50 20 128/68 (88) 99 OxyMask 2.00 08/12/22 11:45 OxyMask 2.00 08/12/22 11:40 20 126/68 (87) 99 OxyMask 2.00 08/12/22 11:30 20 132/75 (94) 99 OxyMask 4.00 08/12/22 11:30 OxyMask 5.00 08/12/22 11:20 20 124/73 (90) 100 OxyMask 4.00 08/12/22 11:17 36.1 16 133/71 (91) 100 OxyMask 5.00 08/12/22 11:17 OxyMask 5.00 I & O 08/13/22 07:00 Intake Total 1200 ml Output Total 1125 ml Balance 75 ml Capillary Refill : Less Than 3 Seconds General Appearance: No Apparent Distress, WD/WN, Obese HEENT: PERRL/EOMI, Pharynx Normal Neck: Normal Inspection, Non Tender, Supple Respiratory: Chest Non Tender, Lungs Clear, No Respiratory Distress Cardiovascular: Regular Rate, Rhythm, No Edema, Normal Peripheral Pulses Peripheral Pulses: 2+ Radial Pulses (R), 2+ Radial Pulses (L) Gastrointestinal: non tender, soft, abnormal bowel sounds (Hypoactive) Extremity: Normal Capillary Refill, Non Tender, No Pedal Edema Neurologic/Psychiatric: Alert, Other (disoriented) Skin: Normal Color, Warm/Dry, Other (Incisions are dressed, clean and dry) Lymphatic: No Adenopathy Results Lab Laboratory Tests 08/12/22 11:22: Glucometer 152H 08/12/22 16:30: Glucometer 198H 08/12/22 21:11: Glucometer 191H 08/12/22 23:17: Glucometer 173H 08/13/22 05:48: White Blood Count 11.2H, Red Blood Count 4.59, Hemoglobin 9.3L, Hematocrit 33L, Mean Corpuscular Volume 72L, Mean Corpuscular Hemoglobin 20L, Mean Corpuscular Hemoglobin Concent 28L, Red Cell Distribution Width 19.8H, Platelet Count 368, Mean Platelet Volume 9.7, Sodium Level 139, Potassium Level 3.8, Chloride Level 104, Carbon Dioxide Level 19L, Anion Gap 16H, Blood Urea Nitrogen 18, Creatinine 0.73, Estimat Glomerular Filtration Rate 92, BUN/Creatinine Ratio 25, Glucose Level 170H, Calcium Level 8.9, Magnesium Level 1.9 08/13/22 05:56: Glucometer 179H Microbiology 08/12/22 MRSA Screen - Final, Complete Assessment/Plan Assessment/Plan Assessment/Plan 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 POD 1 Awaiting pathology Monitor H&H, transfuse as needed Consult PT/OT Advance diet as tolerated Pt encouraged to continue using his IS Pt reports no current pain, has Lortab 5m PO Q4H PRN Paroxysmal atrial fibrillation Currently holding eliquis 5mg PO daily Monitor with telemetry Decubitus ulcers Wound care consulted, currently dresses HTN Restart metoprolol 50mg PO daily Debility PT/OT consulted, patient too somnolent to participate yesterday when seen, patient does not ambulate at baseline DM, insulin-dependent SSI Most recent glucose measured at 179 Clinical Quality Measures Admission Status Admission Dx 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 POD 1 Awaiting pathology Monitor H&H, transfuse as needed Consult PT/OT Advance diet as tolerated Pt currently receiving 2mg morphine Q2H PRN IV, will switch to Lortab 5m PO Q4H PRN once patient is less sedated and able to take oral medications Paroxysmal atrial fibrillation Currently holding eliquis 5mg PO daily Monitor with telemetry Decubitus ulcer Consult wound care HTN Holding patient's metoprolol 50mg PO daily due to some soft blood pressures Debility Consult PT/OT, patient does not ambulate at baseline DM, insulin-dependent SSI Most recent glucose measured at 152 SHANNAN PEMBERTON MD 08/13/22 1:02pm: Assessment/Plan Assessment/Plan Assessment/Plan Patient reports feeling better today. He denies any pain including in his abdomen and his back. His only complaint is that he is cold and ask for the thermostat to be turned up. There is no family at bedside. RN reports he has been doing well. Blood pressure remains well controlled so we will continue to just trend without antihypertensives. Should he need antihypertensives if his blood pressure gets higher than 180 systolically I will add IV hydralazine as he is n.p.o. Supervisory-Addendum Brief Verification & Attestation Participated in pt care: history, MDM, physical Personally performed: exam, history, MDM, supervision of care Care discussed with: Medical Student Procedures: n/a Results interpretation: Verified all documentation Verification and Attestation of Medical Student E/M Service A medical student performed and documented this service in my presence. I reviewed and verified all information documented by the medical student and made modifications to such information, when appropriate. I personally performed the physical exam and medical decision making. Shannan Pemberton, Aug 13, 2022,13:01 PATRICE GASTON Aug 13, 2022 10:50 am SHANNAN PEMBERTON MD Aug 13, 2022 1:02 pm
[2022-08-13] MEDS: MUPIROCIN 2% OINT 22 GM (BACTROBAN) TUBE NSEACH SCH ×2 (12:00→20:57)
--- NOTE | 2022-08-13 12:07 | Physical Therapy Evaluation ---
PT Evaluation-General Medical Diagnosis Admission Date Aug 12, 2022 at 07:03 Medical Diagnosis: Adenocarcinoma of the colon Onset Date: Aug 12, 2022 Therapy Diagnosis Therapy Diagnosis: weakness Height/Weight Height (Feet): 6 Height (Inches): 2.00 Weight (Pounds): 324 Weight (Ounces): 3.0 Precautions Precautions/Isolations: Contact Isolation, Fall Prevention, Standard Precautions Weight Bear Status Right Lower Extremity: Right Weight Bearing/Tolerated Left Lower Extremity: Left Weight Bearing/Tolerated Referral Physician: Amadeo Reason for Referral: Evaluation/Treatment Medical History Pertinent Medical History: Arthritis, CAD, DM, Dementia, HTN Current History s/p lap colon resection Reviewed History: Yes Social History Home: Longterm ([place]) Entry Into Home: Level Entry Prior Prior Level of Function SCALE: Activities may be completed with or without assistive devices. 8-Fvdbiedhgs-mbaevgx completes the activity by him/herself with no assistance from a helper. 5-Set-up or Clean-up Assistance-helper sets up or cleans up; patient completes activity. [place] assists only prior to or following the activity. 4-Supervision or Touching Assistance-helper provides verbal cues and/or touching/steadying and/or contact guard assistance as patient completes activity. Assistance may be provided throughout the activity or intermittently. 3-Partial/Moderate Assistance-helper does LESS THAN HALF the effort. [place] lifts, holds or supports trunk or limbs, but provides less than half the effort. 2-Substantial/Maximal Assistance-helper does MORE THAN HALF the effort. [place] lifts or holds trunk or limbs and provides more than half the effort. 3-Cqwwskxuv-vaxfdq does ALL the effort. Patient does none of the effort to complete the activity. Or, the assistance of 2 or more helpers is required for the patient to complete the activity. If activity was not attempted, code reason: 7-Patient Refused. 9-Not Applicable-not attempted and the patient did not perform the activity before the current illness, exacerbation or injury. 10-Not Attempted due to Environmental Limitations-(lack of equipment, weather restraints, etc.). 88-Not Attempted due to Medical Conditions or Safety Concerns. Bed Mobility: 1 Transfers (B,C,W/C): 1 (Julianne Lift) Prior Devices Use: Manual wheelchair, Mechanical lift PT Evaluation-Current Subjective Patient is very talkative. Objective Patient Orientation: Confused Attachments: Garrett Catheter, IV ROM/Strength ROM Lower Extremities bilateral limited due to inactivity PLOF Strength Lower Extremities 2-/5 grossly bilateral LE all planes Integumentary/Posture Bladder Incontinence: Garrett Cath Neuromuscular (Tone, Coordination, Reflexes) diminished coordination Sensory Vision: Functional Hearing: Impaired Transfers Roll Left to Right (QC): 1 Gait Does the Patient Walk?: No and Walking Goal NOT indicated Assessment/Needs Patient seen by skilled PT for bilateral LE ROM due to patient is a Julianne Lift transfer PLOF at NC and is non ambulatory. Julianne sling from NC in NC w/c in room. PT will see patient for 1 more session to address ROM and nursing to assist with Julianne Lift transfers. Rehab Potential: Guarded PT Short Term Goals Short Term Goals Time Frame: Aug 15, 2022 Roll Left & Right: 2 PT Plan Problem List Problem List: Activity Tolerance, Functional Strength, Safety, Balance, Transfer, Bed Mobility Treatment/Plan Treatment Plan: Continue Plan of Care Treatment Plan: Bed Mobility, Education, Functional Activity [place], Functional Strength, Safety, Therapeutic Exercise, Transfers Treatment Duration: Aug 15, 2022 Frequency: 3 times per week Estimated Hrs Per Day: .25 hour per day Time Time In: 1120 Time Out: 1130 DATE: Aug 13, 2022 Total Billed Treatment Time: 10 Total Billed Treatment 1 visit EVMod 10 min GONZALO MILIAN PT Aug 13, 2022 12:07
[2022-08-13 12:23] VITALS: BP 147/67
[2022-08-13] MEDS ORDERED: BENZ1LOZ74 MM (13:15)
[2022-08-13] MEDS ORDERED: METO50TA7 PO (13:15)
[2022-08-13 15:18] VITALS: BP 163/72
[2022-08-13] MEDS: morphine INJ 4 MG/ML 1 ML (VIAL/SYRINGE) IVP PRN (18:51)
[2022-08-13] MEDS ORDERED: LORazepam INJ 2 MG/ML (ATIVAN) VIAL IVP PRN (19:30)
[2022-08-13 19:31] VITALS: BP 153/69
[2022-08-13] MEDS ORDERED: LORazepam INJ 2 MG/ML (ATIVAN) VIAL ONE (19:34)
[2022-08-13] MEDS: HYDROcodone/APAP 5 MG/325 MG (LORTAB) TAB PO PRN (20:57)
[2022-08-13 23:10] VITALS: BP 139/62
[2022-08-14 03:03] VITALS: BP 125/56
[2022-08-14] MEDS: LACTATED RINGERS 1,000 ML IV SCH ×3 (03:03→17:37)
[2022-08-14] MEDS: HYDROcodone/APAP 5 MG/325 MG (LORTAB) TAB PO PRN (05:31)
[2022-08-14] MEDS: inSUlin ASPART (NovoLOG) 1 UNIT/0.01 ML (CHARGE PER UNIT) SC SCH ×3 (05:50→18:39)
[2022-08-14] MEDS: LORazepam INJ 2 MG/ML (ATIVAN) VIAL IVP PRN (05:50)
[2022-08-14 07:30] VITALS: BP 136/61
[2022-08-14 08:06] LABS: HEMATOCRIT 28 % (40-54); HEMOGLOBIN 7.7 g/dL (13.3-17.7); MEAN CORPUSCULAR HEMOGLOBIN 20 pg (25-34); MEAN CORPUSCULAR HGB CONC 28 g/dL (32-36); MEAN CORPUSCULAR VOLUME 72 fL (80-99); MEAN PLATELET VOLUME 9.3 fL (9.0-12.2); PLATELET COUNT 287 10^3/uL (130-400); WHITE BLOOD COUNT 9.3 10^3/uL (4.3-11.0)
[2022-08-14 08:20] LABS: POTASSIUM 3.7 MMOL/L (3.6-5.0)
[2022-08-14 08:21] LABS: CALCIUM 8.7 MG/DL (8.5-10.1)
[2022-08-14 08:26] LABS: CREATININE SERUM 0.71 MG/DL (0.60-1.30)
--- NOTE | 2022-08-14 08:51 | Progress Note - Surgery ---
LANNY MALDONADOEB 08/14/22 0851: Subjective Date Seen by a Provider: Aug 14, 2022 Time Seen by a Provider: 08:45 Subjective/Events-last exam Pt was laying in bed sleeping during the interview. Pt had a reported agitated episode yesterday; physician was notified and physician ordered .25 Ativan. This morning pt seem calm but confused. Pt states that he is not in pain. Pt didn't have any complaints at this time.Pt hasn't had bowel movement yet. Review of Systems General: No Chills, No Fatigue HEENT: No Head Aches, No Visual Changes Pulmonary: No Dyspnea, No Cough Cardiovascular: No: Chest Pain, Palpitations Gastrointestinal: Abdominal Pain; No: Nausea, Vomiting Musculoskeletal: No: neck pain, shoulder pain Neurological: Incoordination, Confusion Objective Exam Vital Signs Date Time Temp Pulse Resp B/P (MAP) Pulse Ox O2 Delivery O2 Flow Rate FiO2 08/14/22 07:30 36.6 83 20 136/61 (86) 95 Room Air 08/14/22 07:03 83 08/14/22 03:03 36.8 89 18 125/56 (79) 94 Room Air 08/14/22 01:00 86 08/13/22 23:10 36.7 87 20 139/62 (87) 94 Room Air 08/13/22 20:57 Room Air 08/13/22 19:36 Room Air 08/13/22 19:31 36.2 75 19 153/69 (97) 95 Room Air 08/13/22 19:00 82 08/13/22 15:18 36.6 70 18 163/72 (102) 93 Room Air 08/13/22 13:18 60 08/13/22 13:00 64 08/13/22 12:23 36.2 64 18 147/67 (93) 94 Room Air 08/13/22 08:49 93 Room Air I & O 08/14/22 07:00 Intake Total 1000 ml Output Total 1000 ml Balance 0 ml Capillary Refill : Less Than 3 Seconds General Appearance: No Apparent Distress, Obese HEENT: PERRL/EOMI, Normal ENT Inspection Neck: Normal Inspection, Non Tender Respiratory: Chest Non Tender, No Accessory Muscle Use, No Respiratory Distress Cardiovascular: Regular Rate, Rhythm, No JVD Peripheral Pulses: 2+ Radial Pulses (R), 2+ Radial Pulses (L) Gastrointestinal: non tender (absence of tenderness w/ palpation; incisions c/d/i), soft, abnormal bowel sounds Extremity: Normal Capillary Refill, Non Tender Neurologic/Psychiatric: Alert; No Oriented x3; Other (slight confusion) Skin: Normal Color, Warm/Dry Lymphatic: No Adenopathy Results Lab Laboratory Tests 08/13/22 12:18: Glucometer 173H 08/13/22 18:36: Glucometer 155H 08/13/22 22:55: Glucometer 175H 08/14/22 05:35: Glucometer 161H 08/14/22 07:59: White Blood Count 9.3, Red Blood Count 3.83L, Hemoglobin 7.7L, Hematocrit 28L, M chaparro Corpuscular Volume 72L, Mean Corpuscular Hemoglobin 20L, Mean Corpuscular Hemoglobin Concent 28L, Red Cell Distribution Width 19.9H, Platelet Count 287, Mean Platelet Volume 9.3, Sodium Level 142, Potassium Level 3.7, Chloride Level 108H, Carbon Dioxide Level 19L, Anion Gap 15H, Blood Urea Nitrogen 15, Creatinine 0.71, Estimat Glomerular Filtration Rate 93, BUN/Creatinine Ratio 21, Glucose Level 177H, Calcium Level 8.7 Microbiology 08/12/22 MRSA Screen - Final, Complete Assessment/Plan Assessment/Plan Assessment/Plan S/P Day 2 Lap hand assisted Right Colon Resection Anemia Debilitated Type II Diabetes PT/OT; follow their recommended strategies for mobilization due to pt's debility status Currently NPO, Ice chips- await bowel function MAT Protocol Tight Glucose Control Pain Medications; try avoid using opioids due to post-operative ileus risk Monitor I&O's Incentive Spirometry DVT ppx-scd's DEEEDE CHILDS DO 08/14/22 0905: Subjective Subjective/Events-last exam Pain controlled. Agitated overnight but better. No new complaints. Fatigued. Denies n/v fever sweats chills shortness of breath or chest pain. Objective Exam General Appearance: No Apparent Distress, Obese HEENT: PERRL/EOMI, Normal ENT Inspection Neck: Normal Inspection, Non Tender Respiratory: Chest Non Tender, No Accessory Muscle Use, No Respiratory Distress Cardiovascular: Regular Rate, Rhythm, No JVD Gastrointestinal: non tender (absence of tenderness w/ palpation; incisions c/d/i), soft Extremity: Normal Capillary Refill, Non Tender Neurologic/Psychiatric: Alert, Other (slight confusion) Skin: Normal Color, Warm/Dry Lymphatic: No Adenopathy Assessment/Plan Assessment/Plan Assessment/Plan S/P Day 2 Lap hand assisted Right Colon Resection Anemia Debilitated Type II Diabetes PT/OT; follow their recommended strategies for mobilization due to pt's debility status Currently NPO, Ice chips- await bowel function MAT Protocol Tight Glucose Control Pain Medications; try avoid using opioids due to post-operative ileus risk Monitor I&O's Incentive Spirometry DVT ppx-scd's Supervisory-Addendum Brief Verification & Attestation Participated in pt care: history, MDM, physical Personally performed: exam, history, MDM, supervision of care Care discussed with: Medical Student Procedures: n/a Results interpretation: Verified all documentation Verification and Attestation of Medical Student E/M Service A medical student performed and documented this service in my presence. I reviewed and verified all information documented by the medical student and made modifications to such information, when appropriate. I personally performed the physical exam and medical decision making. Deedee Childs, Aug 14, 2022,09:05 HINA MALDONADO Aug 14, 2022 08:51 DEEDEE CHILDS DO Aug 14, 2022 09:05
[2022-08-14] MEDS: FAMOTIDINE 20MG/2ML IV (PEPCID) IVP SCH ×2 (10:08→20:51)
[2022-08-14] MEDS: MUPIROCIN 2% OINT 22 GM (BACTROBAN) TUBE NSEACH SCH ×2 (10:09→20:51)
--- NOTE | 2022-08-14 11:10 | Physical Therapy Progress Note ---
Therapy Progress Note No treatment today per RN due to patient's increase in confusion and agitation. Patient currently sleeping. GONZALO MILIAN PT Aug 14, 2022 11:10
[2022-08-14 11:29] VITALS: BP 137/63
--- NOTE | 2022-08-14 11:52 | Progress Note ---
PATRICE GASTON 08/14/22 1152: Subjective Date Seen by a Provider: Aug 14, 2022 Time Seen by a Provider: 11:15 Subjective/Events-last exam Patient is somnolent on examination today, occasionally able to provide brief one-word answers before returning to sleep. Per nursing staff, patient was confused throughout the night, thought he was driving a truck. Per report he did get agitated at one point during the night and began trying to remove his IVs. The patient was given 0.25mg lorazepam which helped calm him down. Patient is sleeping comfortably and appears to not be in any pain. Patient has no other complaints. Objective Exam Last Set of Vital Signs Vital Signs Date Time Temp Pulse Resp B/P (MAP) Pulse Ox O2 Delivery O2 Flow Rate FiO2 08/14/22 11:29 36.6 94 18 137/63 (87) 93 Room Air 08/12/22 12:20 2.00 Capillary Refill : Less Than 3 Seconds I&O Intake and Output 08/14/22 00:00 Intake Total 50 ml Output Total 1000 ml Balance -950 ml Intake Oral 0 ml IV Total 50 ml Output Urine Total 1000 ml General: Other (somnolent) HEENT: Atraumatic, PERRLA Neck: Supple, No JVD Lungs: Clear to Auscultation Heart: Regular Rate Abdomen: Soft, Other (hypoactive) Extremities: No Edema, Normal Pulses Skin: No Rashes Neuro: Sensation Intact Results Lab Laboratory Tests 08/13/22 12:18: Glucometer 173H 08/13/22 18:36: Glucometer 155H 08/13/22 22:55: Glucometer 175H 08/14/22 05:35: Glucometer 161H 08/14/22 07:59: White Blood Count 9.3, Red Blood Count 3.83L, Hemoglobin 7.7L, Hematocrit 28L, Mean Corpuscular Volume 72L, Mean Corpuscular Hemoglobin 20L, Mean Corpuscular Hemoglobin Concent 28L, Red Cell Distribution Width 19.9H, Platelet Count 287, Mean Platelet Volume 9.3, Sodium Level 142, Potassium Level 3.7, Chloride Level 108H, Carbon Dioxide Level 19L, Anion Gap 15H, Blood Urea Nitrogen 15, Creatinine 0.71, Estimat Glomerular Filtration Rate 93, BUN/Creatinine Ratio 21, Glucose Level 177H, Calcium Level 8.7 08/14/22 11:28: Glucometer 171H Microbiology 08/12/22 MRSA Screen - Final, Complete Assessment/Plan Assessment/Plan Assess & Plan/Chief Complaint 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 Awaiting pathology Hg down to 7.7 from 9.3 yesterday, will continue to monitor, transfuse if needed Currently NPO Pt encouraged to continue using his IS Pt reports no current pain, has Lortab 5m PO Q4H PRN Paroxysmal atrial fibrillation Currently holding eliquis 5mg PO daily Monitor with telemetry Decubitus ulcers Wound care consulted, currently dressed HTN Holding metoprolol 50mg PO daily BP has remained stable Debility PT/OT consulted, patient does not ambulate at baseline DM, insulin-dependent SSI Glucose has been well-controlled MRSA + nasal swab Bactroban BID Clinical Quality Measures Admission Status Admission Dx 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 POD 1 Awaiting pathology Monitor H&H, transfuse as needed Consult PT/OT Advance diet as tolerated Pt currently receiving 2mg morphine Q2H PRN IV, will switch to Lortab 5m PO Q4H PRN once patient is less sedated and able to take oral medications Paroxysmal atrial fibrillation Currently holding eliquis 5mg PO daily Monitor with telemetry Decubitus ulcer Consult wound care HTN Holding patient's metoprolol 50mg PO daily due to some soft blood pressures Debility Consult PT/OT, patient does not ambulate at baseline DM, insulin-dependent SSI Most recent glucose measured at 152 SHANNAN PEMBERTON MD 08/14/22 1420: Assessment/Plan Assessment/Plan Assess & Plan/Chief Complaint Patient quite sleepy today. RN reports he was up and agitated throughout the night. Sister at bedside and concerned about confusion. Discussed how delirium is common in the hospital especially following surgery in patients who already have dementia. Will attempt to reorient as able. Await return of bowel function. BP well controlled and BS within goal without insulin. Remains NPO. Supervisory-Addendum Brief Verification & Attestation Participated in pt care: history, MDM, physical Personally performed: exam, history, MDM, supervision of care Care discussed with: Medical Student Procedures: n/a Results interpretation: Verified all documentation Verification and Attestation of Medical Student E/M Service A medical student performed and documented this service in my presence. I reviewed and verified all information documented by the medical student and made modifications to such information, when appropriate. I personally performed the physical exam and medical decision making. Shannan Pemberton, Aug 14, 2022,14:15 PATRICE GASTON Aug 14, 2022 11:52 SHANNAN PEMBERTON MD Aug 14, 2022 14:20
--- NOTE | 2022-08-14 13:14 | Occ Therapy Progress Note ---
Therapy Progress Note No treatment today per RN due to patient's increase in confusion and agitation. OT will continue to monitor a provide therapy per POC NENA SANTIAGO OT Aug 14, 2022 13:14
[2022-08-14 15:28] VITALS: BP 174/73
--- NOTE | 2022-08-14 16:16 | OPERATIVE REPORT ---
DATE OF SERVICE: 08/12/2022 PREOPERATIVE DIAGNOSIS: Adenocarcinoma of the right colon. POSTOPERATIVE DIAGNOSIS: Adenocarcinoma of the right colon. PROCEDURE: Laparoscopic hand-assisted right colon resection. SURGEON: Deedee Childs DO. TANK TRUCK MILK RECEIVER: Dr. Roldan, assisted in retraction, dissection, and closure. ANESTHESIA: General. ESTIMATED BLOOD LOSS: 200 mL COMPLICATIONS: None. INDICATIONS: The patient is an 81-year-old male who was found to have adenocarcinoma of the right colon. He understands risks and benefits of the procedure along with family and they wished to proceed. Consent was signed and in chart. DESCRIPTION OF PROCEDURE: The patient was taken to the operating suite where he was prepped and draped in sterile fashion. Timeout was performed. Midline incision was made around the umbilicus for hand port placement. Cautery used to dissect down through subcutaneous tissues and fascia was then opened. Under direct visualization, a 12 mm trocar was placed in the epigastric region. The hand port was inserted as well, no pneumoperitoneum was achieved. Under direct visualization, a 5 mm trocar was placed in the right lower quadrant. The cecum and mass of tattoo was identified. The right colon was mobilized along the line of Toldt and also around the hepatic flexure, making the right colon a midline structure. This was then brought out through the midline hand port incision. The distal ileum was dissected around and a CATRACHITO stapler was then fired across the ileum along with the colon being dissected around and a CATRACHITO stapler was fired across the colon distal to the mass. The LigaSure was then used to divide the mesentery removing the specimen. A [id number] anastomosis was then created. A crotch stitch was placed with 3-0 Vicryl. The abdomen was then irrigated with IrriSept and suction and also irrigated with saline. The abdomen was inspected. Hemostasis was achieved. The fascia was then closed using 1-0 looped PDS. The abdomen was then re-insufflated. No other pathology noted. The abdomen was then desufflated. The trocars were removed. The skin was then closed using sisi after it was washed and dried and irrigated. Job ID: [id number] DocumentID: [id number] Dictated Date: 08/14/2022 10:06:31 Cottage Supervisor Date: 08/14/2022 16:14:00 Dictated By: DEEDEE CHILDS DO
[2022-08-14 19:55] VITALS: BP 180/76
[2022-08-14 23:47] VITALS: BP 152/65
[2022-08-15] MEDS: inSUlin ASPART (NovoLOG) 1 UNIT/0.01 ML (CHARGE PER UNIT) SC SCH ×4 (00:42→18:04)
[2022-08-15] MEDS: LACTATED RINGERS 1,000 ML IV SCH ×3 (01:08→16:12)
[2022-08-15 04:02] VITALS: BP 164/71
[2022-08-15 06:10] LABS: HEMATOCRIT 27 % (40-54); HEMOGLOBIN 7.2 g/dL (13.3-17.7); MEAN CORPUSCULAR HEMOGLOBIN 20 pg (25-34); MEAN CORPUSCULAR HGB CONC 27 g/dL (32-36); MEAN CORPUSCULAR VOLUME 74 fL (80-99); MEAN PLATELET VOLUME 9.5 fL (9.0-12.2); PLATELET COUNT 301 10^3/uL (130-400); WHITE BLOOD COUNT 6.5 10^3/uL (4.3-11.0)
[2022-08-15 06:21] LABS: POTASSIUM 3.2 MMOL/L (3.6-5.0)
[2022-08-15 06:22] LABS: CALCIUM 8.5 MG/DL (8.5-10.1)
[2022-08-15 06:26] LABS: CREATININE SERUM 0.65 MG/DL (0.60-1.30)
[2022-08-15 07:31] VITALS: BP 182/79
--- NOTE | 2022-08-15 08:33 | Progress Note - Surgery ---
DANIELLE COBOS 08/15/22 0833: Subjective Date Seen by a Provider: Aug 15, 2022 Time Seen by a Provider: 08:28 Subjective/Events-last exam Patient is sleeping in bed this morning. Upon awakening patient he is dazed and confused and non-contributory on questioning. He is not orientated and cannot answer pointed questions. He repeats "no pain" when I repeatedly ask about pain. He will not answer my repeated question about how he is feeling, keeps asking for his breakfast. Incisions are clean, dry, and intact. No signs of tenderness upon physical exam. According to nursing report he did have a BM yesterday. Objective Exam Vital Signs Date Time Temp Pulse Resp B/P (MAP) Pulse Ox O2 Delivery O2 Flow Rate FiO2 08/15/22 07:31 36.3 75 18 182/79 (113) 94 Room Air 08/15/22 07:00 69 08/15/22 04:02 36.8 75 16 164/71 (102) 93 Room Air 08/15/22 01:00 70 08/14/22 23:47 36.8 79 16 152/65 (94) 95 Room Air 08/14/22 21:00 Room Air 08/14/22 19:55 36.9 83 19 180/76 (110) 93 Room Air 08/14/22 19:15 Room Air 08/14/22 19:00 79 08/14/22 15:28 36.7 83 20 174/73 (106) 95 Room Air 08/14/22 12:22 85 08/14/22 11:29 36.6 94 18 137/63 (87) 93 Room Air 08/14/22 09:03 Room Air I & O0 08/15/22 07:00 Intake Total 0 ml Output Total 1575 ml Balance -1575 ml Capillary Refill : Less Than 3 Seconds General Appearance: No Apparent Distress, Obese HEENT: PERRL/EOMI, Pharynx Normal, Other (Patient constantly rubs at eyes) Neck: Non Tender, Supple Respiratory: Chest Non Tender, No Accessory Muscle Use, No Respiratory Distress Cardiovascular: Regular Rate, Rhythm, No Murmur Peripheral Pulses: 2+ Radial Pulses (R), 2+ Radial Pulses (L) Gastrointestinal: non tender (absence of tenderness to palpation), soft, abnormal bowel sounds (decreased); No distended, No guarding, No rebound Extremity: No Calf Tenderness, Pedal Edema (+1 bilateral), Other (Compression wraps on bilaterally below knee) Neurologic/Psychiatric: Alert, Disoriented, Other (Unable/unwilling to respond to questioning) Skin: Normal Color, Warm/Dry, Other (Incision clean, dry, and intact) Lymphatic: No Adenopathy Results Lab Laboratory Tests 08/14/22 11:28: Glucometer 171H 08/14/22 17:30: Glucometer 170H 08/14/22 23:51: Glucometer 172H 08/15/22 05:24: Glucometer 147H 08/15/22 05:54: White Blood Count 6.5, Red Blood Count 3.63L, Hemoglobin 7.2L, Hematocrit 27L, Mean Corpuscular Volume 74L, Mean Corpuscular Hemoglobin 20L, Mean Corpuscular Hemoglobin Concent 27L, Red Cell Distribution Width 20.0H, Platelet Count 301, Mean Platelet Volume 9.5, Sodium Level 144, Potassium Level 3.2L, Chloride Level 111H, Carbon Dioxide Level 16L, Anion Gap 17H, Blood Urea Nitrogen 12, Creatinine 0.65, Estimat Glomerular Filtration Rate 95, BUN/Creatinine Ratio 18, Glucose Level 164H, Calcium Level 8.5 Microbiology 08/12/22 MRSA Screen - Final, Complete Assessment/Plan Assessment/Plan Assessment/Plan S/P Lap hand assisted Right Colon Resection- POD #3 Anemia- Worsening from 7.7 to 7.2 today Debilitated Type II Diabetes Plan: Follow PT/OT recommendation due to patients debility status Advance to sips of clears Maintain glucose control Continue pain regimen-monitor opioid use IS Monitor H&H KIRILL ROLDAN DO 08/15/22 1436: Subjective Time Seen by a Provider: 12:34 Subjective/Events-last exam Pt seen and examined, he is lying in bed and appears comfortable. He does not really talk or answer questions. Nurse stated he has been NPO since surgery on Wednesday. Review of Systems unable to obtain ROS Objective Exam General Appearance: No Apparent Distress, Obese (morbidly) HEENT: PERRL/EOMI, Other (Patient constantly rubs at eyes, mucous membranes appear dry) Respiratory: Chest Non Tender, No Accessory Muscle Use, No Respiratory Distress Cardiovascular: Regular Rate, Rhythm, No Murmur Gastrointestinal: non tender (absence of tenderness to palpation), soft, abnormal bowel sounds (decreased); No distended; other (incisions are c/d/i) Extremity: Pedal Edema (+1 bilateral), Other (Compression wraps on bilaterally below knee) Neurologic/Psychiatric: Disoriented, Other (Unable/unwilling to respond to questioning) Assessment/Plan Assessment/Plan Assessment/Plan S/P Lap hand assisted Right Colon Resection- POD #3 Anemia-Slightly down; 7.7 to 7.2 today Debilitated Type II Diabetes Plan: Follow PT/OT recommendation due to patients debility status Advance to sips of clears Maintain glucose control Continue pain regimen-monitor opioid use IS Monitor H&H Supervisory-Addendum Brief Verification & Attestation Participated in pt care: history, MDM, physical Personally performed: exam, history, MDM, supervision of care Care discussed with: Medical Student Procedures: n/a Verification and Attestation of Medical Student E/M Service A medical student performed and documented this service. I then reviewed and verified all information documented by the medical student and made modifications to such information, when appropriate. I personally performed a physical exam, medical decision making and then discussed any differences between the notes and made revisions as necessary to create one note. Kirill Roldan , 08/15/22 , 14:38 DANIELLE COBOS Aug 15, 2022 08:33 KIRILL ROLDAN DO Aug 15, 2022 14:36
[2022-08-15] MEDS: FAMOTIDINE 20MG/2ML IV (PEPCID) IVP SCH ×2 (08:38→21:09)
[2022-08-15] MEDS: MUPIROCIN 2% OINT 22 GM (BACTROBAN) TUBE NSEACH SCH ×2 (08:41→21:09)
--- NOTE | 2022-08-15 10:45 | Progress Note ---
PATRICE GASTON 08/15/22 1045: Subjective Date Seen by a Provider: Aug 15, 2022 Time Seen by a Provider: 10:30 Subjective/Events-last exam Patient is asleep on initial examination, able to be aroused fairly easily. He still seems confused, but less so than previously. Patient reports that he is doing well, denies any pain, only complaint is that he is hungry and wants to eat. Patient is unsure of whether he has been passing flatus. Patient's family report that the patient's hands are swollen, small amount of edema seen in both hands on exam. Per nursing staff, patient had one BM last night, diarrhea. Patient has no other complaints. Review of Systems General: No Chills, No Night Sweats HEENT: No Visual Changes Pulmonary: No Cough Cardiovascular: No: Chest Pain Gastrointestinal: No: Nausea, Vomiting Musculoskeletal: No: back pain Neurological: Confusion Objective Exam Last Set of Vital Signs Vital Signs Date Time Temp Pulse Resp B/P (MAP) Pulse Ox O2 Delivery O2 Flow Rate FiO2 08/15/22 09:00 94 Room Air 2.00 08/15/22 07:31 36.3 75 18 182/79 (113) Capillary Refill : Less Than 3 Seconds I&O Intake and Output 08/15/22 00:00 Intake Total 1000 ml Output Total 1425 ml Balance -425 ml Intake Oral 0 ml IV Total 1000 ml Output Urine Total 1425 ml General: Alert, Other (disoriented) HEENT: Atraumatic, PERRLA Neck: Supple Lungs: Clear to Auscultation Abdomen: Soft, No Tenderness, Other (hypoactive) Extremities: Normal Pulses Skin: No Rashes, No Breakdown, Other (incisions clean and dry) Results Lab Laboratory Tests 08/14/22 11:28: Glucometer 171H 08/14/22 17:30: Glucometer 170H 08/14/22 23:51: Glucometer 172H 08/15/22 05:24: Glucometer 147H 08/15/22 05:54: White Blood Count 6.5, Red Blood Count 3.63L, Hemoglobin 7.2L, Hematocrit 27L, Mean Corpuscular Volume 74L, Mean Corpuscular Hemoglobin 20L, Mean Corpuscular Hemoglobin Concent 27L, Red Cell Distribution Width 20.0H, Platelet Count 301, Mean Platelet Volume 9.5, Sodium Level 144, Potassium Level 3.2L, Chloride Level 111H, Carbon Dioxide Level 16L, Anion Gap 17H, Blood Urea Nitrogen 12, Creatinine 0.65, Estimat Glomerular Filtration Rate 95, BUN/Creatinine Ratio 18, Glucose Level 164H, Calcium Level 8.5 Microbiology 08/12/22 MRSA Screen - Final, Complete Assessment/Plan Assessment/Plan Assess & Plan/Chief Complaint 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 Awaiting pathology Hg down to 7.2 from 7.7 yesterday, will continue to monitor, consider transfusing Currently NPO Pt encouraged to continue using his IS Pt reports no current pain, has Lortab 5m PO Q4H PRN Paroxysmal atrial fibrillation Currently holding eliquis 5mg PO daily Monitor with telemetry Decubitus ulcers Wound care consulted, currently dressed HTN Holding metoprolol 50mg PO daily BP has remained stable Debility PT/OT consulted, patient does not ambulate at baseline DM, insulin-dependent SSI Glucose has been well-controlled MRSA + nasal swab Bactroban BID Hypokalemia Start IV potassium replacement, 80meq Clinical Quality Measures Admission Status Admission Dx 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 POD 1 Awaiting pathology Monitor H&H, transfuse as needed Consult PT/OT Advance diet as tolerated Pt currently receiving 2mg morphine Q2H PRN IV, will switch to Lortab 5m PO Q4H PRN once patient is less sedated and able to take oral medications Paroxysmal atrial fibrillation Currently holding eliquis 5mg PO daily Monitor with telemetry Decubitus ulcer Consult wound care HTN Holding patient's metoprolol 50mg PO daily due to some soft blood pressures Debility Consult PT/OT, patient does not ambulate at baseline DM, insulin-dependent SSI Most recent glucose measured at 152 SHANNAN PEMBERTON MD 08/15/22 1147: Assessment/Plan Assessment/Plan Assess & Plan/Chief Complaint Patient more alert today. Asking for breakfast. Does not deviate from this train of thought despite multiple other questions. When asked specifically about pain he did not complain of any but again asked about breakfast. No family at bedside. Family had asked about edema in hands yesterday. Examined them today and it is barely appreciable and does not appear to be impacting him. Will monitor this going forward. Will replace potassium per orders. Bp trending up so will resume metoprolol. Also taking oral pain meds so will resume some of his home meds as well. Supervisory-Addendum Brief Verification & Attestation Participated in pt care: history, MDM, physical Personally performed: exam, history, MDM, supervision of care Care discussed with: Medical Student Procedures: n/a Results interpretation: Verified all documentation Verification and Attestation of Medical Student E/M Service A medical student performed and documented this service in my presence. I reviewed and verified all information documented by the medical student and made modifications to such information, when appropriate. I personally performed the physical exam and medical decision making. Shannan Pemberton, Aug 15, 2022,11:42 PATRICE GASTON Aug 15, 2022 10:45 SHANNAN PEMBERTON MD Aug 15, 2022 11:47
[2022-08-15 11:10] VITALS: BP 177/77
[2022-08-15] MEDS ORDERED: meTOprolol TARTRATE 50 MG (LOPRESSOR) TAB PO NR (11:45)
[2022-08-15] MEDS ORDERED: PROPYLENE GLYCOL OU PRN (11:45)
[2022-08-15] MEDS ORDERED: PEG OU PRN (11:45)
[2022-08-15] MEDS ORDERED: [UNRECOGNIZED DRUG - OTHER] OU PRN (11:45)
[2022-08-15] MEDS ORDERED: ARTIFICAL TEARS 0.4 ML UNIT DOSE (REFRESH PLUS) OU PRN (12:00)
[2022-08-15] MEDS: POTASSIUM CL 10MEQ/50ML IVPB 50 ML IV SCH ×2 (12:19→12:28)
--- NOTE | 2022-08-15 12:29 | Physical Therapy Daily Note ---
PT Daily Note-Current Subjective Un remarkable. Pt very sleepy throughout treatment with very minimal interaction. Pain Section J - Health Conditions 1. Rarely or not at all 2. Occasionally 3. Frequently 4. Almost constantly 8. Unable to answer Pain Effect on Sleep: 3 Pain Interference with Therapy: 3 Pain Interference w/Day-to-Day: 3 Transfers SCALE: Activities may be completed with or without assistive devices. 3-Ehmghewftl-tmzqwoz completes the activity by him/herself with no assistance from a helper. 5-Set-up or Clean-up Assistance-helper sets up or cleans up; patient completes activity. [place] assists only prior to or following the activity. 4-Supervision or Touching Assistance-helper provides verbal cues and/or touch ing/steadying and/or contact guard assistance as patient completes activity. Assistance may be provided throughout the activity or intermittently. 3-Partial/Moderate Assistance-helper does LESS THAN HALF the effort. [place] lifts, holds or supports trunk or limbs, but provides less than half the effort. 2-Substantial/Maximal Assistance-helper does MORE THAN HALF the effort. [place] lifts or holds trunk or limbs and provides more than half the effort. 4-Qkniwreau-jcrfbh does ALL the effort. Patient does none of the effort to complete the activity. Or, the assistance of 2 or more helpers is required for the patient to complete the activity. If activity was not attempted, code reason: 7-Patient Refused. 9-Not Applicable-not attempted and the patient did not perform the activity before the current illness, exacerbation or injury. 10-Not Attempted due to Environmental Limitations-(lack of equipment, weather restraints, etc.). 88-Not Attempted due to Medical Conditions or Safety Concerns. Weight Bearing Right Lower Extremity: Right Weight Bearing/Tolerated Left Lower Extremity: Left Weight Bearing/Tolerated Exercises Supine Ex: Ankle pumps, Quad Set, Heel Slides, Straight leg raise, Hip abd/add Supine Reps: 10 Provided active assist to complete exercise through range. PT Short Term Goals Short Term Goals Time Frame: Aug 15, 2022 Roll Left & Right: 2 PT Plan Treatment/Plan Treatment Plan: Continue Plan of Care Treatment Plan: Bed Mobility, Education, Functional Activity [place], Functional Strength, Safety, Therapeutic Exercise, Transfers Treatment Duration: Aug 15, 2022 Frequency: 3 times per week Estimated Hrs Per Day: .25 hour per day Time Time In: 1145 Time Out: 1200 DATE: Aug 15, 2022 Total Billed Treatment Time: 15 Total Billed Treatment visit, exercise 15 min KIRSTIE CANELA PT Aug 15, 2022 12:29
[2022-08-15 14:29] VITALS: BP 177/77
[2022-08-15] MEDS: GABAPENTIN 300 MG (NEURONTIN) CAP PO SCH (15:00)
[2022-08-15 16:00] VITALS: BP 164/72
[2022-08-15 19:43] VITALS: BP 171/79
[2022-08-15] MEDS: meTOprolol TARTRATE 50 MG (LOPRESSOR) TAB PO SCH (21:08)
[2022-08-15] MEDS: AtorvaSTATin TABLET 10 MG TABLET PO SCH (21:09)
[2022-08-15] MEDS: DONEPEZIL 10 MG (ARICEPT) TAB PO SCH (21:09)
[2022-08-16] VITALS (7 sets, daily range): BP systolic 133–201; BP diastolic 69–92
[2022-08-16] MEDS: inSUlin ASPART (NovoLOG) 1 UNIT/0.01 ML (CHARGE PER UNIT) SC SCH ×5 (00:46→21:21)
[2022-08-16] MEDS: LACTATED RINGERS 1,000 ML IV SCH ×2 (02:22→21:28)
[2022-08-16] MEDS: GABAPENTIN 300 MG (NEURONTIN) CAP PO SCH ×3 (05:28→12:20)
--- NOTE | 2022-08-16 06:34 | Progress Note - Surgery ---
DANIELLE COBOS 08/16/22 0634: Subjective Date Seen by a Provider: Aug 16, 2022 Time Seen by a Provider: 06:28 Subjective/Events-last exam Patient is sleeping in bed comfortably this morning. He is more alert and oriented (to person and place) this morning compared to yesterday and able to answer some pointed questions. He stated that he "has no pain." According to his nurse he did have a BM yesterday morning that was loose, and that he is tolerating liquids well without nausea or vomiting. He was able to move out of bed yesterday to his chair, but no other walking. When asked repeatedly about any discomfort or pain he denies it. Review of Systems General: Chills; No Night Sweats; Fatigue, Malaise HEENT: No Head Aches, No Sore Throat Pulmonary: No Dyspnea, No Cough Cardiovascular: Edema; No: Chest Pain Gastrointestinal: No: Nausea, Vomiting, Abdominal Pain Genitourinary: No Dysuria, No Hematuria Musculoskeletal: No: back pain, leg pain Neurological: Weakness; No: Numbness Objective Exam Vital Signs Date Time Temp Pulse Resp B/P (MAP) Pulse Ox O2 Delivery O2 Flow Rate FiO2 08/16/22 04:00 36.0 64 18 172/72 (105) 95 Room Air 08/16/22 00:44 36.6 60 18 182/80 (114) 96 Room Air 08/16/22 00:38 62 08/15/22 21:00 Room Air 08/15/22 19:43 37.0 64 20 171/79 (109) 96 Room Air 08/15/22 18:44 86 08/15/22 16:00 36.6 61 18 164/72 (102) 97 Room Air 08/15/22 14:29 36.4 71 94 08/15/22 12:45 71 08/15/22 11:10 36.4 71 18 177/77 (110) 94 Room Air 08/15/22 09:00 94 Room Air 2.00 08/15/22 07:31 36.3 75 18 182/79 (113) 94 Room Air 08/15/22 07:00 69 I & O 08/16/22 07:00 Intake Total 1720 ml Output Total 2025 ml Balance -305 ml Capillary Refill : Less Than 3 Seconds General Appearance: No Apparent Distress, Obese (morbidly) HEENT: PERRL/EOMI; No Scleral Icterus (L), No Scleral Icterus (R) Neck: Non Tender, Supple Respiratory: Chest Non Tender, No Accessory Muscle Use, No Respiratory Distress, Decreased Breath Sounds (bilateral lower lobes) Cardiovascular: Regular Rate, Rhythm, No Murmur Peripheral Pulses: 2+ Radial Pulses (R), 2+ Radial Pulses (L) Gastrointestinal: non tender (absence of tenderness to palpation), soft, abnormal bowel sounds (decreased); No distended, No rebound; other (incisions are clean/dry/ and intact) Extremity: No Calf Tenderness, Pedal Edema (+1 bilateral), Other (Compression wraps on bilaterally below knee) Neurologic/Psychiatric: Alert, Other (Orientated to person and place. Able to answer some pointed questions) Skin: Normal Color, Diaphoresis, Other Lymphatic: No Adenopathy Results Lab Laboratory Tests 08/15/22 11:09: Glucometer 156H 08/15/22 17:55: Glucometer 236H 08/16/22 00:30: Glucometer 155H 08/16/22 05:33: Glucometer 159H Microbiology 08/12/22 MRSA Screen - Final, Complete Assessment/Plan Assessment/Plan Assessment/Plan S/P Lap hand assisted Right Colon Resection- POD #4 Anemia- Hgb at 7.2 Debilitated Type II Diabetes Plan: Follow PT/OT recommendation due to patients debility status Tolerating clears well Maintain glucose control Continue pain regimen-monitor opioid use IS Monitor H&H KIRILL ROLDAN DO 08/16/22 1317: Subjective Time Seen by a Provider: 12:42 Subjective/Events-last exam Pt seen and examined, no new complaints. He is sitting up in chair eating and looks much better than yesterday, he is talking and answering questions. Review of Systems Pulmonary: No Dyspnea, No Cough Cardiovascular: Edema; No: Chest Pain Gastrointestinal: No: Nausea, Vomiting, Abdominal Pain Genitourinary: No Dysuria Objective Exam General Appearance: No Apparent Distress, Obese (morbidly) Respiratory: Chest Non Tender, No Accessory Muscle Use, No Respiratory Distress, Decreased Breath Sounds (bilateral lower lobes) Cardiovascular: Regular Rate, Rhythm, No Murmur Gastrointestinal: non tender (absence of tenderness to palpation), soft; No distended, No rebound; other (incisions are clean/dry/ and intact) Extremity: No Calf Tenderness, Pedal Edema (+1 bilateral), Other (Compression wraps on bilaterally below knee) Neurologic/Psychiatric: Alert Assessment/Plan Assessment/Plan Assessment/Plan S/P Lap hand assisted Right Colon Resection- POD #4 Anemia- Hgb at 7.2 Debilitated Type II Diabetes Plan: Follow PT/OT recommendation due to patients debility status Tolerating clears well Maintain glucose control Continue pain regimen-monitor opioid use IS Monitor H&H Supervisory-Addendum Brief Verification & Attestation Participated in pt care: history, MDM, physical Personally performed: exam, history, MDM, supervision of care Care discussed with: Medical Student Procedures: n/a Verification and Attestation of Medical Student E/M Service A medical student performed and documented this service. I then reviewed and verified all information documented by the medical student and made modifications to such information, when appropriate. I personally performed a physical exam, medical decision making and then discussed any differences between the notes and made revisions as necessary to create one note. Kirill Roldan , 08/16/22 , 13:17 DANIELLE COBOS Aug 16, 2022 06:34 KIRILL ROLDAN DO Aug 16, 2022 13:17
[2022-08-16] MEDS: FAMOTIDINE 20MG/2ML IV (PEPCID) IVP SCH ×2 (08:16→21:21)
[2022-08-16] MEDS: MUPIROCIN 2% OINT 22 GM (BACTROBAN) TUBE NSEACH SCH ×2 (08:17→21:23)
[2022-08-16] MEDS: meTOprolol TARTRATE 50 MG (LOPRESSOR) TAB PO SCH ×2 (08:17→21:22)
[2022-08-16] MEDS ORDERED: NON-FORMULARY MEDICATION 1 EA EA (Escitalopram Oxalate 20 MG) PO SCH (09:00)
[2022-08-16 11:38] LABS: HEMATOCRIT 27 % (40-54); HEMOGLOBIN 7.5 g/dL (13.3-17.7); MEAN CORPUSCULAR HEMOGLOBIN 20 pg (25-34); MEAN CORPUSCULAR HGB CONC 28 g/dL (32-36); MEAN CORPUSCULAR VOLUME 72 fL (80-99); MEAN PLATELET VOLUME 9.7 fL (9.0-12.2); PLATELET COUNT 281 10^3/uL (130-400)
[2022-08-16 11:51] LABS: POTASSIUM 3.2 MMOL/L (3.6-5.0)
[2022-08-16 11:52] LABS: CALCIUM 8.1 MG/DL (8.5-10.1)
[2022-08-16 11:56] LABS: CREATININE SERUM 0.58 MG/DL (0.60-1.30)
--- NOTE | 2022-08-16 12:08 | Progress Note ---
PATRICE GASTON 08/16/22 1208: Subjective Date Seen by a Provider: Aug 16, 2022 Time Seen by a Provider: 11:45 Subjective/Events-last exam Patient is awake and alert in his chair this morning, family at bedside. Patient seems much less confused today, oriented to person and place. His diet was advanced to clears which he has been tolerating well, and had a BM this morning. Patient's family voiced concerns yesterday that his hands appeared swollen, patient has very slight amount of edema present. Planning on decreasing IV fluids, discontinuing if patient continues to tolerate diet well. Patient reports that he is feeling great, has no pain, and has no other complaints. Review of Systems General: No Chills, No Night Sweats HEENT: No Head Aches, No Dysphasia Pulmonary: No Dyspnea, No Cough Cardiovascular: No: Chest Pain, Palpitations Gastrointestinal: No: Nausea, Vomiting, Abdominal Pain Genitourinary: No Dysuria, No Hematuria Musculoskeletal: No: neck pain, back pain Neurological: Confusion (Improved signficantly); No: Weakness, Numbness Objective Exam Last Set of Vital Signs Vital Signs Date Time Temp Pulse Resp B/P (MAP) Pulse Ox O2 Delivery O2 Flow Rate FiO2 08/16/22 09:00 94 Nasal Cannula 1.00 08/16/22 07:22 36.4 60 20 153/70 (97) Capillary Refill : Less Than 3 Seconds I&O Intake and Output 08/16/22 00:00 Intake Total 1620 ml Output Total 1925 ml Balance -305 ml Intake Oral 1620 ml Output Urine Total 1925 ml # Bowel Movements 3 General: Alert, Other (Oriented to person and place) HEENT: Atraumatic, PERRLA Neck: Supple Lungs: Clear to Auscultation Heart: Regular Rate Abdomen: Soft, No Tenderness Extremities: No Clubbing, No Cyanosis, No Edema Skin: No Rashes Neuro: Normal Speech, Sensation Intact Results Lab Laboratory Tests 08/15/22 17:55: Glucometer 236H 08/16/22 00:30: Glucometer 155H 08/16/22 05:33: Glucometer 159H 08/16/22 11:31: White Blood Count 7.0, Red Blood Count 3.72L, Hemoglobin 7.5L, Hematocrit 27L, Mean Corpuscular Volume 72L, Mean Corpuscular Hemoglobin 20L, Mean Corpuscular Hemoglobin Concent 28L, Red Cell Distribution Width 19.7H, Platelet Count 281, Mean Platelet Volume 9.7, Sodium Level 138, Potassium Level 3.2L, Chloride Level 104, Carbon Dioxide Level 21, Anion Gap 13, Blood Urea Nitrogen 8, Creatinine 0.58L, Estimat Glomerular Filtration Rate 99, BUN/Creatinine Ratio 14, Glucose Level 194H, Calcium Level 8.1L 08/16/22 12:02: Microbiology 08/12/22 MRSA Screen - Final, Complete Assessment/Plan Assessment/Plan Assess & Plan/Chief Complaint 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 Awaiting pathology Hg improved from 7.2 yesterday to 7.5 today On clears, has been tolerating well, BM this morning Pt encouraged to continue using his IS Pt reports no current pain, has Lortab 5m PO Q4H PRN Paroxysmal atrial fibrillation Currently holding eliquis 5mg PO daily Monitor with telemetry Decubitus ulcers Wound care consulted, currently dressed HTN No longer NPO, resume metoprolol 50mg PO daily Debility PT/OT consulted, patient does not ambulate at baseline DM, insulin-dependent SSI Glucose has been well-controlled MRSA + nasal swab Bactroban BID Hypokalemia Remains at 3.2 after receiving 20meq K IV yesterday Continue IV K replacement Clinical Quality Measures Admission Status Admission Dx 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 POD 1 Awaiting pathology Monitor H&H, transfuse as needed Consult PT/OT Advance diet as tolerated Pt currently receiving 2mg morphine Q2H PRN IV, will switch to Lortab 5m PO Q4H PRN once patient is less sedated and able to take oral medications Paroxysmal atrial fibrillation Currently holding eliquis 5mg PO daily Monitor with telemetry Decubitus ulcer Consult wound care HTN Holding patient's metoprolol 50mg PO daily due to some soft blood pressures Debility Consult PT/OT, patient does not ambulate at baseline DM, insulin-dependent SSI Most recent glucose measured at 152 SHANNAN PEMBERTON MD 08/19/22 2952: Assessment/Plan Assessment/Plan Assess & Plan/Chief Complaint Patient doing much better. No complaints at this time. Mentation improving. Tolerating diet. Hopefully to DC home tomorrow if continues to do well. Family at bedside and updated on plan. Supervisory-Addendum Brief Verification & Attestation Participated in pt care: history, MDM, physical Personally performed: exam, history, MDM, supervision of care Care discussed with: Medical Student Procedures: n/a Results interpretation: Verified all documentation Verification and Attestation of Medical Student E/M Service A medical student performed and documented this service in my presence. I reviewed and verified all information documented by the medical student and made modifications to such information, when appropriate. I personally performed the physical exam and medical decision making. Shannan Pemberton, Aug 19, 2022,08:18 PATRICE GASTON Aug 16, 2022 12:08 SHANNAN PEMBERTON MD Aug 19, 2022 08:23
[2022-08-16] MEDS: AtorvaSTATin TABLET 10 MG TABLET PO SCH (21:21)
[2022-08-16] MEDS: DONEPEZIL 10 MG (ARICEPT) TAB PO SCH (21:21)
[2022-08-17 04:00] VITALS: BP 171/79
[2022-08-17] MEDS: inSUlin ASPART (NovoLOG) 1 UNIT/0.01 ML (CHARGE PER UNIT) SC SCH ×4 (06:16→20:16)
[2022-08-17] MEDS: GABAPENTIN 300 MG (NEURONTIN) CAP PO SCH ×3 (06:16→16:38)
--- NOTE | 2022-08-17 07:53 | Progress Note - Surgery ---
HINA MALDONADO 08/17/22 0753: Subjective Date Seen by a Provider: Aug 17, 2022 Time Seen by a Provider: 07:48 Subjective/Events-last exam Pt has been having bowel movements and tolerating clear liquid diet. Pt is doing well and tolerating pain. Pt seems to be more oriented today which is consistent with what the providers said over the weekend. Per nurse pt has been asking for regular food. Pt doesn't have any complaints. Review of Systems General: No Chills, No Fatigue; Appetite HEENT: No Head Aches, No Visual Changes, No Eye Pain Pulmonary: No Dyspnea, No Cough Cardiovascular: Lt Headedness; No: Chest Pain, Palpitations Gastrointestinal: No: Nausea, Vomiting, Abdominal Pain, Constipation Genitourinary: No Dysuria, No Frequency Musculoskeletal: No: arm pain, back pain Neurological: No: Weakness Objective Exam Vital Signs Date Time Temp Pulse Resp B/P (MAP) Pulse Ox O2 Delivery O2 Flow Rate FiO2 08/17/22 04:00 36.5 66 18 171/79 (109) 94 Nasal Cannula 2.00 08/17/22 01:00 70 08/16/22 23:40 36.8 85 18 133/69 (90) 92 Room Air 08/16/22 21:00 Room Air 08/16/22 19:36 36.7 64 20 201/92 (128) 92 Room Air 08/16/22 19:00 60 08/16/22 15:48 36.7 65 18 161/73 (102) 93 Room Air 08/16/22 12:40 60 08/16/22 12:03 36.5 60 18 157/73 (101) 92 Room Air 08/16/22 09:00 94 Nasal Cannula 1.00 I & O 08/17/22 07:00 Intake Total 1810 ml Output Total 3250 ml Balance -1440 ml Capillary Refill : Less Than 3 Seconds General Appearance: No Apparent Distress, Obese (morbidly) HEENT: PERRL/EOMI; No Scleral Icterus (L), No Scleral Icterus (R) Neck: Non Tender, Supple Respiratory: Chest Non Tender, Lungs Clear, Normal Breath Sounds, No Accessory Muscle Use, No Respiratory Distress Cardiovascular: Regular Rate, Rhythm, No Murmur Peripheral Pulses: 2+ Radial Pulses (R), 2+ Radial Pulses (L) Gastrointestinal: non tender (absence of tenderness to palpation), soft; No distended, No rebound; other (incisions are clean/dry/ and intact) Extremity: No Calf Tenderness, Pedal Edema (+1 bilateral) Neurologic/Psychiatric: Alert Skin: Normal Color, Warm/Dry, Other Lymphatic: No Adenopathy Results Lab Laboratory Tests 08/16/22 11:31: White Blood Count 7.0, Red Blood Count 3.72L, Hemoglobin 7.5L, Hematocrit 27L, Mean Corpuscular Volume 72L, Mean Corpuscular Hemoglobin 20L, Mean Corpuscular Hemoglobin Concent 28L, Red Cell Distribution Width 19.7H, Platelet Count 281, Mean Platelet Volume 9.7, Sodium Level 138, Potassium Level 3.2L, Chloride Level 104, Carbon Dioxide Level 21, Anion Gap 13, Blood Urea Nitrogen 8, Creatinine 0.58L, Estimat Glomerular Filtration Rate 99, BUN/Creatinine Ratio 14, Glucose Level 194H, Calcium Level 8.1L 08/16/22 12:02: Glucometer 191H 08/16/22 17:54: Glucometer 181H 08/16/22 20:13: Glucometer 214H 08/17/22 06:09: Glucometer 185H Microbiology 08/12/22 MRSA Screen - Final, Complete Assessment/Plan Assessment/Plan Assessment/Plan S/P Lap hand assisted Right Colon Resection- POD #5 Anemia Debilitated Type II Diabetes Follow PT/OT recommendation due to patients debility status Tolerating clears well; Advance diet to softs Maintain glucose control Continue pain regimen-monitor opioid use IS Monitor H&H HERBERT CHILDS DO 08/18/22 1605: Subjective Subjective/Events-last exam Some episodes of confusion. Tolerating clears. Having some stools. Pain controlled. Denies n/v fever sweats chills shortness of breath or chest pain. Objective Exam General Appearance: No Apparent Distress, Obese (morbidly) HEENT: PERRL/EOMI, Normal ENT Inspection Neck: Non Tender, Supple Respiratory: Chest Non Tender, No Accessory Muscle Use, No Respiratory Distress Cardiovascular: Regular Rate, Rhythm, No JVD Gastrointestinal: non tender, soft, other (incisions are clean/dry/ and intact) Extremity: No Calf Tenderness, Pedal Edema (+1 bilateral) Neurologic/Psychiatric: Alert; No Oriented x3 Skin: Normal Color, Warm/Dry Lymphatic: No Adenopathy Assessment/Plan Assessment/Plan Assessment/Plan S/P Lap hand assisted Right Colon Resection- Anemia Debilitated Type II Diabetes Follow PT/OT recommendation due to patients debility status Tolerating clears Maintain glucose control Continue pain regimen-monitor opioid use IS Monitor H&H Supervisory-Addendum Brief Verification & Attestation Participated in pt care: history, MDM, physical Personally performed: exam, history, MDM, supervision of care Care discussed with: Medical Student Procedures: n/a Results interpretation: Verified all documentation Verification and Attestation of Medical Student E/M Service A medical student performed and documented this service in my presence. I reviewed and verified all information documented by the medical student and made modifications to such information, when appropriate. I personally performed the physical exam and medical decision making. Herbert Childs, Aug 17, 2022,16:05 HINA MALDONADO Aug 17, 2022 07:53 HERBERT CHILDS DO Aug 18, 2022 16:05
[2022-08-17 08:15] VITALS: BP 170/78
[2022-08-17] MEDS: lisINopril 20 MG (PRINIVIL) TABLET PO SCH (08:59)
[2022-08-17] MEDS: meTOprolol TARTRATE 50 MG (LOPRESSOR) TAB PO SCH ×2 (08:59→20:05)
[2022-08-17] MEDS: FAMOTIDINE 20MG/2ML IV (PEPCID) IVP SCH ×2 (08:59→20:05)
[2022-08-17] MEDS: MUPIROCIN 2% OINT 22 GM (BACTROBAN) TUBE NSEACH SCH ×2 (08:59→20:05)
--- NOTE | 2022-08-17 09:49 | Physical Therapy Progress Note ---
Therapy Progress Note Due to patient's current status and dependent PLOF with all gross motor skills/bed mobility and transfers, PT to dismiss patient from services at this time. RN notified. GONZALO MILIAN PT Aug 17, 2022 09:49
--- NOTE | 2022-08-17 10:49 | Progress Note ---
Subjective Subjective/Events-last exam Pt states he is feeling well, denies concerns. Oriented to self only. Objective Exam Last Set of Vital Signs Vital Signs Date Time Temp Pulse Resp B/P (MAP) Pulse Ox O2 Delivery O2 Flow Rate FiO2 08/17/22 08:25 94 Nasal Cannula 2.00 08/17/22 08:15 36.8 67 18 170/78 (108) Capillary Refill : Less Than 3 Seconds I&O Intake and Output 08/17/22 00:00 Intake Total 1810 ml Output Total 3000 ml Balance -1190 ml Intake Oral 1810 ml Output Urine Total 3000 ml # Bowel Movements 1 General: Other (drowsy, awakens to name) Lungs: Other (ronchi) Heart: Regular Rate Abdomen: Normal Bowel Sounds, Soft, Other (sisi in place to incision, clean/dry/intact) Extremities: Other (trace edema) Neuro: Other (oriented to self only) Results/Procedures Lab Laboratory Tests 08/16/22 11:31: White Blood Count 7.0, Red Blood Count 3.72L, Hemoglobin 7.5L, Hematocrit 27L, Mean Corpuscular Volume 72L, Mean Corpuscular Hemoglobin 20L, Mean Corpuscular Hemoglobin Concent 28L, Red Cell Distribution Width 19.7H, Platelet Count 281, Mean Platelet Volume 9.7, Sodium Level 138, Potassium Level 3.2L, Chloride Level 104, Carbon Dioxide Level 21, Anion Gap 13, Blood Urea Nitrogen 8, Creatinine 0.58L, Estimat Glomerular Filtration Rate 99, BUN/Creatinine Ratio 14, Glucose Level 194H, Calcium Level 8.1L 08/16/22 12:02: Glucometer 191H 08/16/22 17:54: Glucometer 181H 08/16/22 20:13: Glucometer 214H 08/17/22 06:09: Glucometer 185H 08/17/22 09:11: Glucometer 173H Microbiology 08/12/22 MRSA Screen - Final, Complete Assessment/Plan Assessment/Plan (1) Adenocarcinoma of colon Status: Acute Assessment & Plan: s/p resection, appreciate Surgery recommendations. (2) CAD (coronary artery disease) Status: Chronic (3) Paroxysmal atrial flutter Status: Chronic Assessment & Plan: Holding anticoagulation with recent surgery, resume when okay with surgical team. (4) Hypertension Status: Chronic Assessment & Plan: On metoprolol 50 mg BID, add lisinopril. Qualifiers: Qualified Codes: I10 - Essential (primary) hypertension (5) Diabetes mellitus, type 2 Status: Chronic Assessment & Plan: Glucose 150-214 last 24 hours. Sliding scale insulin. (6) Dementia Status: Chronic (7) Presbycusis of both ears Status: Chronic PATRICK MACK MD Aug 17, 2022 10:49
[2022-08-17 12:11] VITALS: BP 195/85
[2022-08-17] MEDS ORDERED: CATHETER FLUSH 10 ML SYR IVP PRN (13:30)
--- NOTE | 2022-08-17 14:25 | Occ Therapy Progress Note ---
Therapy Progress Note Due to patient's current status and dependent PLOF with all gross motor skills/bed mobility and transfers, OT to dismiss patient from services at this time.Patient expected to return to [facility] Aug 17, 2022 14:25
[2022-08-17 15:30] VITALS: BP 194/84
[2022-08-17] MEDS: LACTATED RINGERS 1,000 ML IV SCH (17:00)
[2022-08-17 17:35] LABS: POTASSIUM 2.9 MMOL/L (3.6-5.0)
[2022-08-17 17:36] LABS: CALCIUM 8.2 MG/DL (8.5-10.1)
[2022-08-17 17:40] LABS: CREATININE SERUM 0.65 MG/DL (0.60-1.30)
[2022-08-17 19:07] VITALS: BP 176/78
[2022-08-17] MEDS: DONEPEZIL 10 MG (ARICEPT) TAB PO SCH (20:05)
[2022-08-17] MEDS: AtorvaSTATin TABLET 10 MG TABLET PO SCH (20:05)
[2022-08-17] MEDS ORDERED: KCL 20 MEQ TAB (K-DUR) PO ONE ×2 (21:15→21:31)
[2022-08-17] MEDS ORDERED: POTASSIUM CL 10MEQ/50ML IVPB 50 ML IV ONE (21:30)
[2022-08-17] MEDS: POTASSIUM CL 10MEQ/50ML IVPB 50 ML IV SCH ×3 (21:33→23:29)
[2022-08-17 23:02] VITALS: BP 145/66
[2022-08-18] MEDS: POTASSIUM CL 10MEQ/50ML IVPB 50 ML IV SCH (00:53)
[2022-08-18 03:03] VITALS: BP 176/80
[2022-08-18] MEDS: GABAPENTIN 300 MG (NEURONTIN) CAP PO SCH ×3 (05:00→14:00)
[2022-08-18] MEDS: inSUlin ASPART (NovoLOG) 1 UNIT/0.01 ML (CHARGE PER UNIT) SC SCH ×4 (05:03→21:41)
[2022-08-18 07:38] VITALS: BP 172/74
[2022-08-18 09:58] LABS: POTASSIUM 3.5 MMOL/L (3.6-5.0)
[2022-08-18 09:59] LABS: CALCIUM 8.2 MG/DL (8.5-10.1)
[2022-08-18 10:03] LABS: CREATININE SERUM 0.61 MG/DL (0.60-1.30)
[2022-08-18 11:45] VITALS: BP 185/78
[2022-08-18] MEDS: FAMOTIDINE 20MG/2ML IV (PEPCID) IVP SCH ×2 (11:54→19:18)
[2022-08-18] MEDS: meTOprolol TARTRATE 50 MG (LOPRESSOR) TAB PO SCH ×2 (11:55→19:18)
[2022-08-18] MEDS: lisINopril 20 MG (PRINIVIL) TABLET PO SCH (11:55)
--- NOTE | 2022-08-18 15:42 | Progress Note ---
Subjective Subjective/Events-last exam Pt sleeping, arouses to voice and denies concerns. Denies pain, says he is feeling pretty well. Objective Exam Last Set of Vital Signs Vital Signs Date Time Temp Pulse Resp B/P (MAP) Pulse Ox O2 Delivery O2 Flow Rate FiO2 08/18/22 13:24 75 08/18/22 11:45 37.7 20 185/78 (113) 90 Nasal Cannula 3.00 Capillary Refill : Less Than 3 Seconds I&O l Intake and Output 08/18/22 00:00 Intake Total 830 ml Output Total 2450 ml Balance -1620 ml Intake Oral 680 ml IV Total 150 ml Output Urine Total 2450 ml # Bowel Movements 2 General: Alert Lungs: Other (ronchi) Heart: Regular Rate Abdomen: Normal Bowel Sounds, Other (mild distenison, nontender) Psych/Mental Status: Mood NL Results/Procedures Lab Laboratory Tests 08/17/22 17:12: Sodium Level 141, Potassium Level 2.9L, Chloride Level 102, Carbon Dioxide Level 26, Anion Gap 13, Blood Urea Nitrogen 5L, Creatinine 0.65, Estimat Glomerular Filtration Rate 95, BUN/Creatinine Ratio 8, Glucose Level 226H, Calcium Level 8.2L 08/17/22 20:10: Glucometer 211H 08/18/22 04:59: Glucometer 227H 08/18/22 09:35: Sodium Level 142, Potassium Level 3.5L, Chloride Level 105, Carbon Dioxide Level 25, Anion Gap 12, Blood Urea Nitrogen 5L, Creatinine 0.61, Estimat Glomerular Filtration Rate 97, BUN/Creatinine Ratio 8, Glucose Level 227H, Calcium Level 8.2L 08/18/22 10:45: Glucometer 199H Microbiology 08/12/22 MRSA Screen - Final, Complete Assessment/Plan Assessment/Plan (1) Adenocarcinoma of colon Status: Acute Assessment & Plan: s/p resection, appreciate Surgery recommendations. (2) CAD (coronary artery disease) Status: Chronic (3) Paroxysmal atrial flutter Status: Chronic Assessment & Plan: Holding anticoagulation with recent surgery, resume when okay with surgical team. (4) Hypertension Status: Chronic Assessment & Plan: On metoprolol 50 mg BID, added lisinopril. Qualifiers: Qualified Codes: I10 - Essential (primary) hypertension (5) Diabetes mellitus, type 2 Status: Chronic Assessment & Plan: Glucose 150-214 last 24 hours. Sliding scale insulin. (6) Dementia Status: Chronic (7) Presbycusis of both ears Status: Chronic (8) Hypokalemia Status: Acute Assessment & Plan: Replace and repeat PATRICK MACK MD Aug 18, 2022 15:42
[2022-08-18 15:43] VITALS: BP 162/69
[2022-08-18] MEDS ORDERED: KCL 20 MEQ TAB (K-DUR) PO NR (16:00)
--- NOTE | 2022-08-18 16:11 | Progress Note - Surgery ---
Subjective Date Seen by a Provider: Aug 18, 2022 Time Seen by a Provider: 12:14 Subjective/Events-last exam Patient doing well today. Still with bowel function. Some episodes of confusion. Tolerating clears. Wanting food. Denies new complaints. Denies n/v fever sweats chills shortness of breath or chest pain. Objective Exam Vital Signs Date Time Temp Pulse Resp B/P (MAP) Pulse Ox O2 Delivery O2 Flow Rate FiO2 08/18/22 15:43 37.5 71 20 162/69 (100) 91 Nasal Cannula 3.50 08/18/22 13:24 75 08/18/22 11:45 37.7 75 20 185/78 (113) 90 Nasal Cannula 3.00 08/18/22 09:00 90 Nasal Cannula 3.00 08/18/22 07:55 68 08/18/22 07:38 37.3 77 20 172/74 (106) 90 Nasal Cannula 2.50 08/18/22 03:03 36.9 72 18 176/80 (112) 92 Nasal Cannula 3.00 08/18/22 01:00 68 08/17/22 23:02 37.1 72 18 145/66 (92) 91 Nasal Cannula 3.00 08/17/22 20:05 Room Air 08/17/22 19:07 37.5 60 18 176/78 (110) 93 Nasal Cannula 2.00 08/17/22 19:00 66 I & O 08/18/22 07:00 Intake Total 780 ml Output Total 2500 ml Balance -1720 ml Capillary Refill : Less Than 3 Seconds General Appearance: No Apparent Distress, Obese (morbidly) HEENT: PERRL/EOMI, Normal ENT Inspection Neck: Non Tender, Supple Respiratory: Chest Non Tender, No Accessory Muscle Use, No Respiratory Distress Cardiovascular: Regular Rate, Rhythm, No JVD Peripheral Pulses: 2+ Radial Pulses (R), 2+ Radial Pulses (L) Gastrointestinal: non tender, soft, other (incisions are clean/dry/ and intact) Extremity: No Calf Tenderness, Pedal Edema (+1 bilateral) Neurologic/Psychiatric: Alert; No Oriented x3 Skin: Normal Color, Warm/Dry Lymphatic: No Adenopathy Results Lab Laboratory Tests 08/17/22 17:12: Sodium Level 141, Potassium Level 2.9L, Chloride Level 102, Carbon Dioxide Level 26, Anion Gap 13, Blood Urea Nitrogen 5L, Creatinine 0.65, Estimat Glomerular Filtration Rate 95, BUN/Creatinine Ratio 8, Glucose Level 226H, Calcium Level 8.2L 08/17/22 20:10: Glucometer 211H 08/18/22 04:59: Glucometer 227H 08/18/22 09:35: Sodium Level 142, Potassium Level 3.5L, Chloride Level 105, Carbon Dioxide Level 25, Anion Gap 12, Blood Urea Nitrogen 5L, Creatinine 0.61, Estimat Glomerular Filtration Rate 97, BUN/Creatinine Ratio 8, Glucose Level 227H, Calcium Level 8.2L 08/18/22 10:45: Glucometer 199H 08/18/22 15:54: Glucometer 176H Microbiology 08/12/22 MRSA Screen - Final, Complete Assessment/Plan Assessment/Plan Assessment/Plan S/P Lap hand assisted Right Colon Resection- Anemia Debilitated Type II Diabetes Follow PT/OT recommendation due to patients debility status Tolerating clears -advance Maintain glucose control Pain control restart abixiban IS Discussed with social work, planning discharge to [facility] tomorrow. DEEDEE SYLVESTER DO Aug 18, 2022 16:11
[2022-08-18] MEDS: AtorvaSTATin TABLET 10 MG TABLET PO SCH (19:18)
[2022-08-18] MEDS: DONEPEZIL 10 MG (ARICEPT) TAB PO SCH (19:18)
[2022-08-18 20:10] VITALS: BP 147/67
[2022-08-18 23:08] VITALS: BP 120/67
[2022-08-19] VITALS (7 sets, daily range): BP systolic 105–130; BP diastolic 58–73
[2022-08-19] MEDS: LORazepam INJ 2 MG/ML (ATIVAN) VIAL IVP PRN (00:22)
[2022-08-19] MEDS: inSUlin ASPART (NovoLOG) 1 UNIT/0.01 ML (CHARGE PER UNIT) SC SCH ×4 (05:19→21:02)
[2022-08-19 05:39] LABS: BASOPHILS % (AUTO) 0 % (0-10); EOSINOPHILS % (AUTO) 0 % (0-10); HEMATOCRIT 29 % (40-54); HEMOGLOBIN 7.9 g/dL (13.3-17.7); LYMPHOCYTES # (AUTO) 0.6 10^3/uL (1.0-4.0); LYMPHOCYTES % (AUTO) 5 % (12-44); MEAN CORPUSCULAR HEMOGLOBIN 20 pg (25-34); MEAN CORPUSCULAR HGB CONC 28 g/dL (32-36); MEAN CORPUSCULAR VOLUME 71 fL (80-99); MEAN PLATELET VOLUME 9.9 fL (9.0-12.2); MONOCYTES # (AUTO) 1.4 10^3/uL (0.0-1.0); MONOCYTES % (AUTO) 13 % (0-12); NEUTROPHILS # (AUTO) 8.3 10^3/uL (1.8-7.8); NEUTROPHILS % (AUTO) 80 % (42-75); PLATELET COUNT 273 10^3/uL (130-400); WHITE BLOOD COUNT 10.3 10^3/uL (4.3-11.0)
[2022-08-19 05:54] LABS: CALCIUM 8.5 MG/DL (8.5-10.1); CREATININE SERUM 0.54 MG/DL (0.60-1.30); POTASSIUM 2.8 MMOL/L (3.6-5.0)
[2022-08-19 06:04] LABS: LYMPHOCYTES % (MANUAL) 7 %; MONOCYTES % (MANUAL) 10 %; NEUTROPHILS % (MANUAL) 83 %
[2022-08-19 06:05] LABS: ANISOCYTOSIS SLIGHT; ELLIPT/OVALOCYTES SLIGHT; HYPOCHROMASIA MODERATE; MICROCYTOSIS SLIGHT; POLYCHROMASIA SLIGHT
[2022-08-19] MEDS: APIXABAN 5 MG (ELIQUIS) TABLET PO SCH ×2 (06:36→14:09)
[2022-08-19] MEDS: GABAPENTIN 300 MG (NEURONTIN) CAP PO SCH ×3 (06:37→14:09)
--- NOTE | 2022-08-19 07:25 | Progress Note - Surgery ---
JOHN KING 08/19/22 0725: Subjective Date Seen by a Provider: Aug 19, 2022 Time Seen by a Provider: 06:50 Subjective/Events-last exam Pt s/p Lap hand assisted R colon resection for invasive moderately differentiated adenocarcinoma of cecum Pt is sleeping comfortably in bed. Pt is difficult to rouse but was given .25mg Ativan at 1230am last night d/t pt agitation, per nurse. Nurse states that Ativan seemed to kick in around 6 this morning but pt was able to be roused at 630am to take PO meds. Per nurse, pt's O2 sats dipped to 85-86% prompting nurse to increase O2 from 3L to 4L. Nurse notes that pt's lung sounds were course this morning but is unsure if this is pt's baseline. Nurse states that pt had a large, loose, non bloody BM last night. Nurse notes pt has been tolerating diet well. Review of Systems unable to obtain d/t pt being sedated Objective Exam Vital Signs Date Time Temp Pulse Resp B/P (MAP) Pulse Ox O2 Delivery O2 Flow Rate FiO2 08/19/22 06:11 94 Nasal Cannula 4.00 08/19/22 03:17 36.8 72 20 118/67 (84) 91 Nasal Cannula 4.00 08/19/22 01:00 80 08/18/22 23:08 36.6 76 20 120/67 (84) 95 Nasal Cannula 3.00 08/18/22 20:10 36.6 83 16 147/67 (93) 95 Nasal Cannula 3.00 08/18/22 20:04 Nasal Cannula 3.00 08/18/22 19:00 72 08/18/22 15:43 37.5 71 20 162/69 (100) 91 Nasal Cannula 3.50 08/18/22 13:24 75 08/18/22 11:45 37.7 75 20 185/78 (113) 90 Nasal Cannula 3.00 08/18/22 09:00 90 Nasal Cannula 3.00 08/18/22 07:55 68 08/18/22 07:38 37.3 77 20 172/74 (106) 90 Nasal Cannula 2.50 I & O 08/19/22 07:00 Intake Total 1440 ml Output Total 2675 ml Balance -1235 ml Capillary Refill : Less Than 3 Seconds General Appearance: No Apparent Distress, Obese (morbidly) HEENT: Moist Mucous Membranes, Other (Pt difficult to arouse but has normal external appearance) Neck: Non Tender, Supple Respiratory: No Accessory Muscle Use, No Respiratory Distress, Other (course lung sounds B/L diffuse; L>R) Cardiovascular: Regular Rate, Rhythm, No Edema, No JVD Peripheral Pulses: 2+ Dorsalis Pedis (R), 2+ Left Dors-Pedis (L) Gastrointestinal: non tender, soft, other (incisions are clean/dry/ and intact) Extremity: No Calf Tenderness, No Pedal Edema Neurologic/Psychiatric: No Alert (recently received sedative and was sleeping ), No Oriented x3 Skin: Normal Color, Warm/Dry Lymphatic: No Adenopathy Results Lab Laboratory Tests 08/18/22 09:35: Sodium Level 142, Potassium Level 3.5L, Chloride Level 105, Carbon Dioxide Level 25, Anion Gap 12, Blood Urea Nitrogen 5L, Creatinine 0.61, Estimat Glomerular Filtration Rate 97, BUN/Creatinine Ratio 8, Glucose Level 227H, Calcium Level 8.2L 08/18/22 10:45: Glucometer 199H 08/18/22 15:54: Glucometer 176H 08/18/22 21:30: Glucometer 269H 08/19/22 05:09: Glucometer 210H 08/19/22 05:11: White Blood Count 10.3, Red Blood Count 4.02L, Hemoglobin 7.9L, Hematocrit 29L, Mean Corpuscular Volume 71L, Mean Corpuscular Hemoglobin 20L, Mean Corpuscular Hemoglobin Concent 28L, Red Cell Distribution Width 19.7H, Platelet Count 273, Mean Platelet Volume 9.9, Immature Granulocyte % (Auto) 1, Neutrophils (%) (A uto) 80H, Lymphocytes (%) (Auto) 5L, Monocytes (%) (Auto) 13H, Eosinophils (%) (Auto) 0, Basophils (%) (Auto) 0, Neutrophils # (Auto) 8.3H, Lymphocytes # (Auto) 0.6L, Monocytes # (Auto) 1.4H, Eosinophils # (Auto) 0.0, Basophils # (Auto) 0.0, Immature Granulocyte # (Auto) 0.1, Neutrophils % (Manual) 83, Lymphocytes % (Manual) 7, Monocytes % (Manual) 10, Polychromasia SLIGHT, Hypochromasia MODERATE, Anisocytosis SLIGHT, Microcytosis SLIGHT, Elliptocytes SLIGHT, Sodium Level 144, Potassium Level 2.8L, Chloride Level 106, Carbon Dioxide Level 26, Anion Gap 12, Blood Urea Nitrogen 8, Creatinine 0.54L, Estimat Glomerular Filtration Rate 101, BUN/Creatinine Ratio 15, Glucose Level 214H, Calcium Level 8.5 Microbiology 08/12/22 MRSA Screen - Final, Complete Assessment/Plan Assessment/Plan Assessment/Plan S/P Lap hand assisted Right Colon Resection for invasive moderately differentiated adenocarcinoma of cecum Anemia Debilitated Type II Diabetes Follow PT/OT recommendation due to patients debility status Pt progressed to PUR4 diet and tolerating well, continue current diet Maintain glucose control Pain control PRN continue apixaban IS Case discussed with social service liaison yesterday, plan to DC to [facility] today pending no acute changes DEEDEE CHILDS DO 08/19/22 0849: Subjective Subjective/Events-last exam Patient sleeping and was given Ativan last night due to agitation. Having bowel movements. After o2 decreased and require o2 per NC. Hgb stable. No family at bedside. Objective Exam General Appearance: No Apparent Distress, Obese (morbidly) HEENT: PERRL/EOMI, Normal ENT Inspection, Other (Pt difficult to arouse but comfortable, sleeping) Neck: Non Tender, Supple Respiratory: Chest Non Tender, No Accessory Muscle Use, No Respiratory Distress Cardiovascular: Regular Rate, Rhythm, No Edema, No JVD Gastrointestinal: non tender, soft, other (incisions are clean/dry/ and intact) Skin: Normal Color, Warm/Dry Lymphatic: No Adenopathy Assessment/Plan Assessment/Plan Assessment/Plan S/P Lap hand assisted Right Colon Resection for invasive moderately differentiated adenocarcinoma of cecum Anemia Debilitated Type II Diabetes Follow PT/OT recommendation due to patients debility status Pt progressed to PUR4 diet and tolerating well, continue current diet Maintain glucose control Pain control PRN continue apixaban IS Case discussed with social service liaison yesterday, plan to DC to [facility] today pending no acute changes once he wakes up today. Supervisory-Addendum Brief Verification & Attestation Participated in pt care: history, MDM, physical Personally performed: exam, history, MDM, supervision of care Care discussed with: Medical Student Procedures: n/a Results interpretation: Verified all documentation Verification and Attestation of Medical Student E/M Service A medical student performed and documented this service in my presence. I reviewed and verified all information documented by the medical student and made modifications to such information, when appropriate. I personally performed the physical exam and medical decision making. Deedee Childs, Aug 19, 2022,08:49 JOHN KING Aug 19, 2022 07:25 DEEDEE CHILDS DO Aug 19, 2022 08:49
[2022-08-19] MEDS ORDERED: KCL 20 MEQ TAB (K-DUR) PO NR (07:30)
[2022-08-19] MEDS ORDERED: NS IV 500 ML 500 ML IV PRN (08:15)
[2022-08-19] MEDS: POTASSIUM CL 10MEQ/50ML IVPB 50 ML IV SCH ×4 (08:39→13:16)
[2022-08-19] MEDS: lisINopril 20 MG (PRINIVIL) TABLET PO SCH (08:43)
[2022-08-19] MEDS: meTOprolol TARTRATE 50 MG (LOPRESSOR) TAB PO SCH ×2 (08:43→21:01)
[2022-08-19] MEDS: FAMOTIDINE 20MG/2ML IV (PEPCID) IVP SCH ×2 (08:43→20:51)
[2022-08-19] MEDS ORDERED: FUROSEMIDE 40 MG (LASIX) TAB PO NR (10:00)
[2022-08-19] MEDS ORDERED: LISI20TA26 PO (11:46)
[2022-08-19 13:54] LABS: POTASSIUM 3.5 MMOL/L (3.6-5.0)
[2022-08-19 13:55] LABS: CALCIUM 8.5 MG/DL (8.5-10.1)
[2022-08-19 14:00] LABS: CREATININE SERUM 0.58 MG/DL (0.60-1.30)
[2022-08-19 14:58] LABS: ABG BASE EXCESS 1.3 MMOL/L (-2.5-2.5); ABG OXYGEN SATURATION 80 % (94-100); ABG PO2 53 MMHG (79-93); ABG TCO2 31.1 MMOL/L (21.0-31.0)
--- NOTE | 2022-08-19 14:58 | Progress Note ---
Subjective Subjective/Events-last exam Pt originally seen at 0940 am, stated he was feeling well, denied concerns. On exam had some mild ronchi, one dose of lasix was ordered along with potassium replacement, and plan was to d/c to nursing facility in the afternoon. At about 1420, I was called by nursing, as they were getting ready to discharge patient, he suddenly became unresponsive. On my arrival he is pale, lethargic, does not respond to voice, touch or painful stimuli. He is drooling and diaphoretic. His daughter is at bedside. She reports that he has expressed he would not want intubation or resuscitation. Discussed question of aggressive care were it needed for surgical procedure or catheterization and she talked to his DPOA who agreed he would not want those things either. Objective Exam Last Set of Vital Signs Vital Signs Date Time Temp Pulse Resp B/P (MAP) Pulse Ox O2 Delivery O2 Flow Rate FiO2 08/19/22 14:27 93 16 105/58 (74) 82 08/19/22 11:42 36.6 Nasal Cannula 5.00 Capillary Refill : Less Than 3 Seconds I&O Intake and Output 08/19/22 00:00 Intake Total 1290 ml Output Total 2800 ml Balance -1510 ml Intake Oral 1240 ml IV Total 50 ml Output Urine Total 2800 ml General: Other (somnolent, unresponsive to voice, touch or painful stimuli, appears pale and diaphoretic) Lungs: Other (rales) Heart: Regular Rate Abdomen: Normal Bowel Sounds, Soft Extremities: No Edema Results/Procedures Lab Laboratory Tests 08/18/22 15:54: Glucometer 176H 08/18/22 21:30: Glucometer 269H 08/19/22 05:09: Glucometer 210H 08/19/22 05:11: White Blood Count 10.3, Red Blood Count 4.02L, Hemoglobin 7.9L, Hematocrit 29L, Mean Corpuscular Volume 71L, Mean Corpuscular Hemoglobin 20L, Mean Corpuscular Hemoglobin Concent 28L, Red Cell Distribution Width 19.7H, Platelet Count 273, Mean Platelet Volume 9.9, Immature Granulocyte % (Auto) 1, Neutrophils (%) (Auto) 80H, Lymphocytes (%) (Auto) 5L, Monocytes (%) (Auto) 13H, Eosinophils (%) (Auto) 0, Basophils (%) (Auto) 0, Neutrophils # (Auto) 8.3H, Lymphocytes # (Auto) 0.6L, Monocytes # (Auto) 1.4H, Eosinophils # (Auto) 0.0, Basophils # (Auto) 0.0, Immature Granulocyte # (Auto) 0.1, Neutrophils % (Manual) 83, Lymphocytes % (Manual) 7, Monocytes % (Manual) 10, Polychromasia SLIGHT, Hypochromasia MODERATE, Anisocytosis SLIGHT, Microcytosis SLIGHT, Elliptocytes SLIGHT, Sodium Level 144, Potassium Level 2.8L, Chloride Level 106, Carbon Dioxide Level 26, Anion Gap 12, Blood Urea Nitrogen 8, Creatinine 0.54L, Estimat Glomerular Filtration Rate 101, BUN/Creatinine Ratio 15, Glucose Level 214H, Calcium Level 8.5 08/19/22 11:48: Glucometer 198H 08/19/22 13:37: Sodium Level 144, Potassium Level 3.5L, Chloride Level 105, Carbon Dioxide Level 28, Anion Gap 11, Blood Urea Nitrogen 9, Creatinine 0.58L, Estimat Glomerular Filtration Rate 99, BUN/Creatinine Ratio 16, Glucose Level 221H, Calcium Level 8.5 08/19/22 14:34: Glucometer 244H Microbiology 08/12/22 MRSA Screen - Final, Complete Assessment/Plan Assessment/Plan (1) Acute on chronic respiratory failure with hypoxia Status: Acute Assessment & Plan: Uncertain etiology, unable to maintain sats above 80s even with Vapotherm 40 lpm and 100% FiO2. Does not have gag reflex or secretion management enough to use BiPap and is DNI. CXR, ABG, CMP, CBC, lactic acid, troponin, D dimer and EKG ordered. Discussed with daughter at bedside possible causes including PE, stroke, HI. He received Eliquis today, so if he has PE, treatment already in place. Unstable for CT to check head or chest CT, but as noted, already on Eliquis. Family note he would not want aggressive intervention if HI were cause. (2) Unresponsive state Status: Acute Assessment & Plan: Uncertain etiology, see respiratory failure above. Will move to ICU, but note is made of non-aggressive goals of care and will continue to follow closely and discuss with family. (3) Adenocarcinoma of colon Status: Acute Assessment & Plan: s/p resection, appreciate Surgery recommendations. (4) CAD (coronary artery disease) Status: Chronic (5) Paroxysmal atrial flutter Status: Chronic Assessment & Plan: Held anticoagulation with recent surgery, resumed on 08/19. (6) Hypertension Status: Chronic Assessment & Plan: On metoprolol 50 mg BID, added lisinopril. Qualifiers: Qualified Codes: I10 - Essential (primary) hypertension (7) Diabetes mellitus, type 2 Status: Chronic Assessment & Plan: Sliding scale insulin. 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 PATRICK MACK MD Aug 19, 2022 14:58
[2022-08-19 15:01] LABS: ABG PH 7.19 (7.37-7.43)
[2022-08-19 15:02] LABS: ALLENS TEST YES-POS; INSPIRED O2 100%; VENTILATOR NO
[2022-08-19 15:03] LABS: ABG PCO2 78 MMHG (35-45)
[2022-08-19 15:09] LABS: HEMATOCRIT 34 % (40-54); MEAN CORPUSCULAR HEMOGLOBIN 20 pg (25-34); MEAN CORPUSCULAR HGB CONC 27 g/dL (32-36); MEAN CORPUSCULAR VOLUME 73 fL (80-99); MEAN PLATELET VOLUME 9.6 fL (9.0-12.2); PLATELET COUNT 415 10^3/uL (130-400); WHITE BLOOD COUNT 19.2 10^3/uL (4.3-11.0)
--- NOTE | 2022-08-19 15:14 | Diagnostic Imaging Report ---
Indication: Respiratory distress Frontal chest obtained at 2:50 p.m. and compared to 07/21/2022. There is cardiomegaly. Pacemaker is unchanged. There is some patchy infiltrate in the right lung base. Left lung is clear. There is no pneumothorax or pleural fluid. impression: Cardiomegaly. There is some patchy infiltrate in the right lung base which is new compared to the prior study, suspicious for pneumonia. Followup is recommended. Dictated by: Dictated on workstation # [id number]
[2022-08-19 15:15] LABS: ALBUMIN 3.3 GM/DL (3.2-4.5)
[2022-08-19 15:16] LABS: CHLORIDE 106 MMOL/L (98-107); POTASSIUM 3.7 MMOL/L (3.6-5.0); SODIUM 145 MMOL/L (135-145)
[2022-08-19 15:17] LABS: CALCIUM 8.6 MG/DL (8.5-10.1)
[2022-08-19 15:18] LABS: GLUCOSE 296 MG/DL (70-105); TOTAL PROTEIN 6.3 GM/DL (6.4-8.2)
[2022-08-19 15:19] LABS: CARBON DIOXIDE 25 MMOL/L (21-32)
[2022-08-19 15:20] LABS: BILIRUBIN,TOTAL 0.5 MG/DL (0.1-1.0)
[2022-08-19 15:21] LABS: ALKALINE PHOSPHATASE 73 U/L (40-136)
[2022-08-19 15:22] LABS: CREATININE SERUM 0.66 MG/DL (0.60-1.30); GFR ESTIMATED 95
[2022-08-19 15:23] LABS: BUN/CREATININE RATIO 14
[2022-08-19 15:25] LABS: ALANINE AMINOTRANSFERASE 10 U/L (0-55)
[2022-08-19] MEDS ORDERED: VANCOMYCIN INJECTION 0.1 MG in NS (IVPB) 250 ML IV SCH (16:30)
[2022-08-19] MEDS ORDERED: VANCOMYCIN 1,750 MG/NS 500 ML IVPB IV NR ×2 (17:30)
[2022-08-19] MEDS: CEFEPIME INJECTION 1,000 MG in NS (IVPB) 50 ML IV SCH ×2 (17:37→22:02)
--- NOTE | 2022-08-19 17:37 | Tele-ICU Consult ---
History of Present Illness History of Present Illness Date Seen by Provider: Aug 19, 2022 Time Seen by Provider: 17:37 Date of Admission (Tele-ICU Physician , consultation as per request of PCP Service provided via interactive audio and video telecommunications E-CARE system to a patient admitted to ICU bed in [facility]. Available chart/ vitals / labs / Images reviewed H&P is from ER notes Patient's information available about PMH, Shx, Fhx allergy reviewed inEMR. ROS as per chart and RN report Now in ICU, hemodynamically stable Video assessment done using teleICU camera, rest of exam as per RN Discussed with RN. Hospital course: (08/12) patient with recent laparoscopic hand assisted right colon resection for adenocarcinoma of right colon (08/19) 81 y M with discharge orders became unresponsive CXR PNA on vapotherm->-BIPAP A/P Acute resp failure , hypoxic and hypercarbic , with new RLL PNA ( agree - risk of PE vely low on Eliquis ) - lethargic does not respond to voice touch , moaning to painful stimuli. Family just made him DNI ( discussion with Dr Torres ) . I discussed with daughter at bedside pro/cons using NIPPV in this situation - she agreed to try BIPAP with accepting risk of additional aspiration. -Will place on BIPAP 07/04 and follow abg in 2 h PNA , RLL - suspected aspiration ( was fed today ) vs HAP - abg started - blood cx ordered Acute mental status changes - with hypercapnea - can not r/o TME , or intracranial hemorrage - might need CT head of still unresponsive with CO2 correction Elev lactate - possible with hypoxia , vitals were stable - will follow PAF - rate conterolled - AC with Eliquis S/P Lap hand assisted Right Colon Resection for invasive moderately differentiated adenocarcinoma of cecum - as per sx - stable Anemia -stable CAD - trop is low DM II - follow ISS Lines : , (Central Line Necessity Reviewed) Garrett: OG: Nutrition: Analgesia: Anxiety/ delirium VTE Prophylaxis: eliquis Stress Ulcer Prophylaxis: Plans in collaboration with bedside consultants and IM MDs. Discussed with RN to reach out if any questions or concerns A total of 33 minutes of critical care time was devoted to this patient today, required to treat and/or prevent further deterioration of critical care c ondition ( as above ) . I am remotely monitoring this patient from another state. I am unable to do the bedside exam, and history/physical and pertinent information is taken from other notes in the computer and bedside staff. . Allergies and Home Medications Allergies Coded Allergies: No Known Drug Allergies (Unverified , 08/11/22) Home Medications Acetaminophen 325 Mg Tablet, 650 MG PO Q4H PRN for PAIN-MILD (1-4) OR TEMPATURE, (Reported) Acetaminophen 325 Mg Tablet, 650 MG PO DAILY, (Reported) TAKES 2 (325MG) TABS Albuterol Sulfate 2.5 Mg/3 Ml Vial.neb, 3 ML NEB Q4H PRN for SHORTNESS OF BREATH, (Reported) Apixaban 5 Mg Tablet, 5 MG PO 0600,1400, (Reported) Artificial Tears 1.4 % Soln, 1 DROP OU 0600,1400, (Reported) Atorvastatin Calcium 10 Mg Tablet, 10 MG PO HS, (Reported) Benzocaine/Menthol 15 Mg-3.6 Mg Lozenge, 1 EACH MM UD PRN for COUGH, (Reported) Cetirizine HCl 10 Mg Tablet, 10 MG PO DAILY, (Reported) Dapagliflozin Propanediol 10 Mg Tablet, 10 MG PO DAILY, (Reported) Docusate Sodium 100 Mg Capsule, 200 MG PO HS, (Reported) TAKES 2 (100MG) CAPS Donepezil HCl 10 Mg Tablet, 10 MG PO HS, (Reported) Dulaglutide 0.75 Mg/0.5 Ml Pen.injctr, 0.75 MG SQ FRI, (Reported) Escitalopram Oxalate 20 Mg Tablet, 20 MG PO DAILY, (Reported) Gabapentin 300 Mg Capsule, 300 MG PO 0600,1000,1400, (Reported) Insulin Detemir 100 Unit/Ml (3 Ml) Insuln.pen, 15 UNIT SQ 0600,1800, (Reported) Insulin Lispro 100 Unit/Ml Insuln.pen, 5 UNITS SQ AC, (Reported) Lisinopril 20 Mg Tablet, 20 MG PO DAILY Prescribed by: PATRICK TORRES on 08/19/22 1146 Loperamide HCl 2 Mg Capsule, 2-4 MG PO UD PRN for DIARRHEA, (Reported) TAKE 2 CAPSULES AFTER FIRST LOOSE STOOL THEN TAKE 1 CAPSULE AFTER EACH SUBSEUENT LOOSE STOOL. Magnesium Hydroxide 400 Mg/5 Ml Oral.susp, 30 ML PO DAILY PRN for CONSTIPATION- 7TH LINE, (Reported) Menthol 118 Ml Gel..ml., 1 APPLIC TP Q6H PRN for SHOULDER PAIN, (Reported) Metformin HCl 500 Mg Tab.er.24h, 1,000 MG PO 0600,1400, (Reported) TAKES 2 (500MG) TABS Metoprolol Succinate 50 Mg Tab.er.24h, 50 MG PO DAILY, (Reported) HOLD FOR SBP <100 AND HR <60 Polyethylene Glycol 3350 17 Gm Powd.pack, 17 GM PO Q12H PRN for CONSTIPATION-2ND LINE, (Reported) Propylene Glycol/Peg 400/Pf 0.3 %-0.4 % Droperette, 1 DROP OU Q4H PRN for DRY EYES, (Reported) Past Medical/Social/Family Hx Patient Social History Tobacco Use?: No Smoking Status: Never a Smoker Substance use?: No Alcohol Use?: No Pt stated abuse/neglect: No Immunizations Up To Date Influenza Vaccine Up-to-Date: Yes; Up-to-Date First/Initial COVID19 Vaccinat: 07/04/2020 Second COVID19 Vaccination Ayo: 07/25/2020 Tetanus Booster (TDap): Less Than 5 Years TB Skin Test: Negative Date of Pneumonia Vaccine: Mar 24, 2019 Current Status Advance Directives: Yes Advance Directive Location: Copy placed in chart Communicates: Verbally Primary Language: Congolese Preferred Spoken Language: Congolese Is interpretation needed?: No Sensory deficits: Vision impairment, Hearing impairment Family Medical History Family Hx: ADMITTED 09/09/20 WITH SEPTIC SHOCK, RESPIRATORY FAILURE, PNEUMONIA ADMITTED 01/11/21 WITH SEPTIC SHOCK, PNEUMONIA, UTI, RESPIRATORY FAILURE Review of Systems Constitutional: see HPI Focused Exam Lactate Level 08/19/22 15:20: Lactic Acid Level 3.64*H Height, Weight, BMI Height: 6'2.00" Weight: 324lbs. 3.0oz. 147.594405io; 33.98 BMI Method:Stated Lactic Acid Level Laboratory Tests Test 08/19/22 15:20 Lactic Acid Level 3.64 MMOL/L (0.50-2.00) *H Exam Exam Patient acknowledged, consented, and participated in this virtual visit which was conducted using real time audio/video Vital Signs Date Time Temp Pulse Resp B/P (MAP) Pulse Ox O2 Delivery O2 Flow Rate FiO2 08/19/22 17:17 87 33 95 100.00 08/19/22 16:00 93 31 128/63 (84) 97 Vapotherm 30.00 90.00 08/19/22 15:59 120 08/19/22 15:45 120 28 113/65 (81) 93 Vapotherm 40.00 100.00 08/19/22 15:41 92 40.00 100 08/19/22 15:36 36.1 117 29 121/58 (79) 93 Vapotherm 40.00 100.00 08/19/22 15:15 79 124/63 (83) Vapotherm 40.00 100.00 08/19/22 15:12 82 08/19/22 14:54 Vapotherm 40.00 100 08/19/22 14:27 93 16 105/58 (74) 82 08/19/22 13:12 80 08/19/22 11:42 36.6 74 18 130/61 (84) 92 Nasal Cannula 5.00 08/19/22 09:00 Nasal Cannula 3.00 08/19/22 07:35 36.4 72 18 128/60 (82) 91 Nasal Cannula 5.00 08/19/22 06:54 77 08/19/22 06:11 94 Nasal Cannula 4.00 08/19/22 03:17 36.8 72 20 118/67 (84) 91 Nasal Cannula 4.00 08/19/22 01:00 80 08/18/22 23:08 36.6 76 20 120/67 (84) 95 Nasal Cannula 3.00 08/18/22 20:10 36.6 83 16 147/67 (93) 95 Nasal Cannula 3.00 08/18/22 20:04 Nasal Cannula 3.00 08/18/22 19:00 72 I & O 08/19/22 07:00 Intake Total 1440 ml Output Total 2675 ml Balance -1235 ml Height & Weight Height: 6'2.00" Weight: 324lbs. 3.0oz. 147.226849hs; 33.98 BMI Method:Stated General Appearance: No Apparent Distress, Obese (morbidly), Other HEENT: PERRL/EOMI, Normal ENT Inspection, Other (Pt difficult to arouse but comfortable, sleeping) Neck: Non Tender, Supple Respiratory: Chest Non Tender, No Accessory Muscle Use, No Respiratory Distress Cardiovascular: Regular Rate, Rhythm, No Edema, No JVD Capillary Refill: Less Than 3 Seconds Peripheral Pulses: 2+ Dorsalis Pedis (R), 2+ Left Dors-Pedis (L) Gastrointestinal: non tender, soft, other (incisions are clean/dry/ and intact) Extremity: No Calf Tenderness, No Pedal Edema Neurologic/Psychiatric: No Alert (recently received sedative and was sleeping ), No Oriented x3 Skin: Normal Color, Warm/Dry Lymphatic: No Adenopathy Results Lab Laboratory Tests 08/18/22 09:35 08/19/22 05:11 08/19/22 13:37 08/19/22 14:59 Assessment/Plan Assessment/Plan 1 LIT POWELL MD Aug 19, 2022 17:37
[2022-08-19] MEDS: morphine INJ 4 MG/ML 1 ML (VIAL/SYRINGE) IVP PRN (18:29)
[2022-08-19 20:18] LABS: ABG BASE EXCESS 3.7 MMOL/L (-2.5-2.5); ABG OXYGEN SATURATION 92 % (94-100); ABG PCO2 58 MMHG (35-45); ABG PO2 62 MMHG (79-93); ABG TCO2 31.1 MMOL/L (21.0-31.0)
[2022-08-19 20:19] LABS: ALLENS TEST YES-POS; INSPIRED O2 30%; PATIENT TEMP 36.7; VENTILATOR NO
[2022-08-19 20:20] LABS: ABG PH 7.32 (7.37-7.43)
[2022-08-19] MEDS: DONEPEZIL 10 MG (ARICEPT) TAB PO SCH (21:01)
[2022-08-19] MEDS: AtorvaSTATin TABLET 10 MG TABLET PO SCH (21:01)
[2022-08-20] VITALS (7 sets, daily range): BP systolic 98–186; BP diastolic 62–90
[2022-08-20] MEDS ORDERED: NS IV 1000 ML 1,000 ML IV SCH (00:15)
[2022-08-20] MEDS: CEFEPIME INJECTION 1,000 MG in NS (IVPB) 50 ML IV SCH ×4 (05:07→23:26)
[2022-08-20 05:21] LABS: HEMATOCRIT 31 % (40-54); HEMOGLOBIN 8.2 g/dL (13.3-17.7); MEAN CORPUSCULAR HEMOGLOBIN 20 pg (25-34); MEAN CORPUSCULAR HGB CONC 27 g/dL (32-36); MEAN CORPUSCULAR VOLUME 73 fL (80-99); MEAN PLATELET VOLUME 9.8 fL (9.0-12.2); PLATELET COUNT 312 10^3/uL (130-400); WHITE BLOOD COUNT 13.5 10^3/uL (4.3-11.0)
[2022-08-20 05:39] LABS: POTASSIUM 3.7 MMOL/L (3.6-5.0)
[2022-08-20 05:40] LABS: CALCIUM 8.2 MG/DL (8.5-10.1)
[2022-08-20] MEDS: VANCOMYCIN 1 GM/NS 250 ML IVPB IV SCH ×4 (05:43→17:45)
[2022-08-20 05:45] LABS: CREATININE SERUM 0.79 MG/DL (0.60-1.30)
[2022-08-20] MEDS: APIXABAN 5 MG (ELIQUIS) TABLET PO SCH (05:45)
[2022-08-20] MEDS ORDERED: NS IV 500 ML 500 ML IV PRN (05:45)
[2022-08-20] MEDS: GABAPENTIN 300 MG (NEURONTIN) CAP PO SCH ×3 (05:45→13:23)
[2022-08-20 05:47] LABS: MAGNESIUM 1.7 MG/DL (1.6-2.4)
[2022-08-20] MEDS: inSUlin ASPART (NovoLOG) 1 UNIT/0.01 ML (CHARGE PER UNIT) SC SCH ×4 (05:52→23:31)
[2022-08-20] MEDS ORDERED: KCL 20 MEQ TAB (K-DUR) PO SCH (06:00)
[2022-08-20] MEDS ORDERED: MAGNESIUM 1 GM/100 ML IVPB 100 ML IV SCH (06:00)
[2022-08-20] MEDS ORDERED: POTASSIUM CL 10MEQ/50ML IVPB 50 ML IV SCH (06:00)
--- NOTE | 2022-08-20 06:47 | Progress Note - Surgery ---
SAIRANDA 08/20/22 0647: Subjective Date Seen by a Provider: Aug 20, 2022 Time Seen by a Provider: 06:41 Subjective/Events-last exam Pt s/p Lap hand assisted R colon resection for invasive moderately differentiated adenocarcinoma of cecum Per previous notes, pt became unresponsive yesterday during discharge. Pt was found to be in acute respiratory failure that not was not responsive to vapotherm. Labs were significant for lactic acidosis of 3.64, elevated D-dimer, and leukocytosis. CXR was remarkable for patchy infiltrates of R lower base that was suspicious for PNA. Pt was transferred to ICU and pt's condition was discussed with pt's DPOA, who decided to make pt DNI. Pt is on BiPaP and remains unresponsive Pt wast started on Vancomycin and Cefepime for possible aspiration PNA. Today, pt is unresponsive in laying in bed. Pt has minimal response to painful stimuli. Pt's urine output has decreased to .2cc/hr/kg in the last four hours. WBC has improved from yesterday but still elevated. Review of Systems unable to obtain d/t pt being unresponsive Focused Exam Lactate Level 08/19/22 21:32: Lactic Acid Level 2.09*H 08/19/22 23:28: Lactic Acid Level 2.36*H 08/20/22 01:40: Lactic Acid Level 1.83 Objective Exam Vital Signs Date Time Temp Pulse Resp B/P (MAP) Pulse Ox O2 Delivery O2 Flow Rate FiO2 08/20/22 06:24 98 33 94 30.00 08/20/22 06:00 96 22 135/70 (91) 93 NIV Bilevel 35.00 08/20/22 05:00 95 21 133/71 (91) 94 NIV Bilevel 35.00 08/20/22 04:22 36.2 08/20/22 04:21 93 NIV Bilevel 30 08/20/22 04:00 96 21 120/62 (81) 96 NIV Bilevel 35.00 08/20/22 03:00 98 24 115/62 (79) 96 NIV Bilevel 35.00 08/20/22 02:26 99 27 95 30.00 08/20/22 02:00 102 24 98/62 (74) 95 NIV Bilevel 35.00 08/20/22 01:00 101 26 118/68 (85) 93 NIV Bilevel 35.00 08/20/22 01:00 101 08/20/22 00:00 128 27 118/64 (82) 94 NIV Bilevel 35.00 08/20/22 00:00 36.0 08/19/22 23:59 93 NIV Bilevel 30 08/19/22 23:00 102 25 117/67 (84) 93 NIV Bilevel 35.00 08/19/22 22:00 93 25 112/58 (76) 93 NIV Bilevel 35.00 08/19/22 21:55 80 28 94 30.00 08/19/22 21:00 79 26 116/65 (82) 94 NIV Bilevel 35.00 08/19/22 20:00 78 26 116/70 (85) 94 NIV Bilevel 35.00 08/19/22 20:00 92 NIV Bilevel 30 08/19/22 19:59 36.7 08/19/22 19:00 77 27 112/59 (76) 92 NIV Bilevel 35.00 08/19/22 19:00 93 08/19/22 18:55 NIV Bilevel 35.00 08/19/22 18:38 82 28 92 30.00 08/19/22 18:00 81 29 119/72 (88) 100 Vapotherm 30.00 90.00 08/19/22 17:17 87 33 95 100.00 08/19/22 17:00 80 28 122/62 (82) 95 Vapotherm 30.00 90.00 08/19/22 16:00 93 31 128/63 (84) 97 Vapotherm 30.00 90.00 08/19/22 15:59 120 08/19/22 15:45 120 28 113/65 (81) 93 Vapotherm 40.00 100.00 08/19/22 15:41 92 40.00 100 08/19/22 15:36 36.1 117 29 121/58 (79) 93 Vapotherm 40.00 100.00 08/19/22 15:15 79 124/63 (83) Vapotherm 40.00 100.00 08/19/22 15:12 82 08/19/22 14:54 Vapotherm 40.00 100 08/19/22 14:27 93 16 105/58 (74) 82 08/19/22 13:12 80 08/19/22 11:42 36.6 74 18 130/61 (84) 92 Nasal Cannula 5.00 08/19/22 09:00 Nasal Cannula 3.00 08/19/22 07:35 36.4 72 18 128/60 (82) 91 Nasal Cannula 5.00 08/19/22 06:54 77 I & O 08/20/22 07:00 Intake Total 3047.5 ml Output Total 2275 ml Balance 772.5 ml Capillary Refill : Less Than 3 SecondsLess Than 3 Seconds General Appearance: Mild Distress (respiratory ), Obese (morbidly), Other (unresponsive on BiPaP) HEENT: Moist Mucous Membranes, Other (unable to fully assess secondary to unresponsive state) Neck: Non Tender, Supple Respiratory: Accessory Muscle Use, Crackles (R lung diffusely) Cardiovascular: No Edema, Irregularly Irregular, Tachycardia Peripheral Pulses: 2+ Dorsalis Pedis (R), 2+ Left Dors-Pedis (L) Gastrointestinal: soft, hernia (incisional hernia LLQ), other (incisions are clean/dry/ and intact) Extremity: No Pedal Edema; No Swelling Neurologic/Psychiatric: No Alert (unresponsive), No Oriented x3 Skin: Normal Color, Warm/Dry Lymphatic: No Adenopathy Results Lab Laboratory Tests 08/19/22 11:48: Glucometer 198H 08/19/22 13:37: Sodium Level 144, Potassium Level 3.5L, Chloride Level 105, Carbon Dioxide Level 28, Anion Gap 11, Blood Urea Nitrogen 9, Creatinine 0.58L, Estimat Glomerular Filtration Rate 99, BUN/Creatinine Ratio 16, Glucose Level 221H, Calcium Level 8.5 08/19/22 14:34: Glucometer 244H 08/19/22 14:50: Blood Gas Puncture Site RIGHT, Blood Gas Patient Temperature 37.0, Arterial Blood pH 7.19*L, Arterial Blood Partial Pressure CO2 78*H, Arterial Blood Partial Pressure O2 53L, Arterial Blood HCO3 29H, Arterial Blood Total CO2 31.1H , Arterial Blood Oxygen Saturation 80L, Arterial Blood Base Excess 1.3, Chris Test YES-POS, Blood Gas Ventilator Setting NO, Blood Gas Inspired Oxygen 100% 08/19/22 14:59: White Blood Count 19.2H, Red Blood Count 4.58, Hemoglobin 9.0L, Hematocrit 34L, Mean Corpuscular Volume 73L, Mean Corpuscular Hemoglobin 20L, Mean Corpuscular Hemoglobin Concent 27L, Red Cell Distribution Width 20.6H, Platelet Count 415H, Mean Platelet Volume 9.6, Sodium Level 145, Potassium Level 3.7, Chloride Level 106, Carbon Dioxide Level 25, Anion Gap 14, Blood Urea Nitrogen 9, Creatinine 0.66, Estimat Glomerular Filtration Rate 95, BUN/Creatinine Ratio 14, Glucose Level 296H, Calcium Level 8.6, Corrected Calcium 9.2, Total Bilirubin 0.5, Aspartate Amino Transf (AST/SGOT) 13, Alanine Aminotransferase (ALT/SGPT) 10, Alkaline Phosphatase 73, Troponin I < 0.028, Total Protein 6.3L, Albumin 3.3 08/19/22 15:20: D-Dimer 4.37H, Lactic Acid Level 3.64*H 08/19/22 17:11: Glucometer 272H 08/19/22 17:25: Lactic Acid Level 2.61*H 08/19/22 19:25: Lactic Acid Level 2.01*H 08/19/22 20:15: Blood Gas Puncture Site RRAD, Blood Gas Patient Temperature 36.7, Arterial Blood pH 7.32*L, Arterial Blood Partial Pressure CO2 58H, Arterial Blood Partial Pressure O2 62L, Arterial Blood HCO3 29H, Arterial Blood Total CO2 31.1H, Arterial Blood Oxygen Saturation 92L, Arterial Blood Base Excess 3.7H, Chris Test YES-POS, Blood Gas Ventilator Setting NO, Blood Gas Inspired Oxygen 30% 08/19/22 20:50: Glucometer 286H 08/19/22 21:32: Lactic Acid Level 2.09*H 08/19/22 23:28: Lactic Acid Level 2.36*H 08/20/22 01:40: Lactic Acid Level 1.83 08/20/22 04:02: White Blood Count 13.5H, Red Blood Count 4.18L, Hemoglobin 8.2L, Hematocrit 31L, Mean Corpuscular Volume 73L, Mean Corpuscular Hemoglobin 20L, Mean Corpuscular Hemoglobin Concent 27L, Red Cell Distribution Width 19.8H, Platelet Count 312, Mean Platelet Volume 9.8, Sodium Level 148H, Potassium Level 3.7, Chloride Level 109H, Carbon Dioxide Level 25, Anion Gap 14, Blood Urea Nitrogen 15, Creatinine 0.79, Estimat Glomerular Filtration Rate 90, BUN/Creatinine Ratio 19, Glucose Level 236H, Calcium Level 8.2L, Magnesium Level 1.7 Microbiology 08/12/22 MRSA Screen - Final, Complete Assessment/Plan Assessment/Plan Assessment/Plan S/P Lap hand assisted Right Colon Resection for invasive moderately differentiated adenocarcinoma of cecum Acute Respiratory Failure Aspiration PNA Leukocytosis AFIB on chronic anti-coagulation Anemia Debilitated Type II Diabetes Switch Eliquis to Lovenox SC d/t pt inability to take PO medications at this time- last Eliquis dose yesterday afternoon continue Abx for aspiration PNA Continue to monitor Hgb, transfuse <7 continue glucose control pain control prn DEEDEE CHILDS DO 08/20/22 1603: Subjective Subjective/Events-last exam Patient more alert. Breathing better on bipap. Chest x ray: 1. Improving but persistent right basilar pneumonia. No family present at bedside. Earlier when medical students visiting was unresponsive. Feeling better this morning at the time of me seeing him. Objective Exam General Appearance: No Apparent Distress, WD/WN, Obese (morbidly), Other ( on BiPaP) HEENT: PERRL/EOMI, Moist Mucous Membranes Neck: Non Tender, Supple Respiratory: Chest Non Tender, No Accessory Muscle Use, No Respiratory Distress Cardiovascular: No JVD, Irregularly Irregular Gastrointestinal: non tender, soft, other (incisions are clean/dry/ and intact) Extremity: Non Tender; No Swelling Neurologic/Psychiatric: Alert; No Oriented x3 Skin: Normal Color, Warm/Dry Lymphatic: No Adenopathy Assessment/Plan Assessment/Plan Assessment/Plan S/P Lap hand assisted Right Colon Resection for invasive moderately differentiated adenocarcinoma of cecum Acute Respiratory Failure Aspiration PNA Leukocytosis AFIB on chronic anti-coagulation Anemia Debilitated Type II Diabetes Anticoagulation okay continue Abx for aspiration PNA Continue to monitor Hgb, transfuse <7 continue glucose control pain control prn Had time where non responsive but is for me, continue medical management. Supervisory-Addendum Brief Verification & Attestation Participated in pt care: history, MDM, physical Personally performed: exam, history, MDM, supervision of care Care discussed with: Medical Student Procedures: n/a Results interpretation: Verified all documentation Verification and Attestation of Medical Student E/M Service A medical student performed and documented this service in my presence. I reviewed and verified all information documented by the medical student and made modifications to such information, when appropriate. I personally performed the physical exam and medical decision making. Deedee Childs, Aug 20, 2022,16:06 RANDA GIBBS Aug 20, 2022 06:47 DEEDEE CHILDS DO Aug 20, 2022 16:03
[2022-08-20] MEDS: ALBUMIN 25% 25 GM/100 ML 100 ML IV SCH ×2 (06:54→08:29)
[2022-08-20] MEDS: POTASSIUM CL 10MEQ/50ML IVPB 50 ML IV SCH ×2 (06:59→07:36)
[2022-08-20] MEDS: MAGNESIUM 1 GM/100 ML IVPB 100 ML IV SCH ×4 (07:37→10:39)
[2022-08-20] MEDS: FAMOTIDINE 20MG/2ML IV (PEPCID) IVP SCH ×2 (08:25→21:18)
[2022-08-20] MEDS: lisINopril 20 MG (PRINIVIL) TABLET PO SCH (08:41)
[2022-08-20] MEDS: meTOprolol TARTRATE 50 MG (LOPRESSOR) TAB PO SCH (08:41)
--- NOTE | 2022-08-20 09:18 | Progress Note - Hospitalist ---
MILLA IBARRA 08/20/22 0918: Subjective HPI/CC On Admission Date Seen by Provider: Aug 20, 2022 Time Seen by Provider: 08:10 Right colon resection Subjective/Events-last exam Patient is seen at bedside this AM. Daughter is present. He is on BiPAP and appears to be resting comfortably. He answers to his name and says he's doing alright and not having any pain but is very somnolent and returns to sleep between questions. His daughter has no questions at this time and says he seems to be doing much better than last night. 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 His post-operative course progressed as expected with minimal issues with pain, occasional agitation treated with PRNs, and a spontaneous return of bowel function and diet advancement as tolerated. Patient had some noted slight peripheral extremity edema as well as course rhonchi noted on exams. The afternoon of 08/18/22 the patient was seen by surgery and IM teams and was planning for DC home with routine follow-up but later in the day became unresponsive with O2 sats falling to the low 80% despite vapotherm therapy. The patient was transferred to the ICU and the family expressed that the patient had expressed wishes to be a DNI/DNR and would want to avoid intubation and invasive treatments but agreed that despite the decrease LOC and risk of aspiration they would be ok with trying to maintain the patient's oxygentation using NIV and BIPAP was initiated. A CXR was obtained and suggested a right lower lobe pneumonia. Cultures were acquired and patient was placed on Vanc/Cefepime for broad spectrum coverage of probable aspiration pneumonia. Overnight the patient's O2 sats stabilized while on BIPAP and with severe sepsis treatment of antibiotics/albumin/fluids. Focused Exam Lactate Level 08/19/22 21:32: Lactic Acid Level 2.09*H 08/19/22 23:28: Lactic Acid Level 2.36*H 08/20/22 01:40: Lactic Acid Level 1.83 Objective Exam Vital Signs Vital Signs Date Time Temp Pulse Resp B/P (MAP) Pulse Ox O2 Delivery O2 Flow Rate FiO2 08/20/22 08:00 93 19 124/68 (86) 95 NIV Bilevel 30.00 08/20/22 08:00 36.8 08/20/22 04:21 30 Capillary Refill : Less Than 3 SecondsLess Than 3 Seconds General Appearance: No Apparent Distress, Obese HEENT: Moist Mucous Membranes Respiratory: Rhonci (Most apparent on right side and lower right lobes. Left lung mitchell are more clear. Good air movement appreciated with equal chest rise. ) Cardiovascular: Regular Rate, Rhythm Gastrointestinal: Normal Bowel Sounds, Other (Midline mini-laparatomy wound - appears to be in good approximation, no drainage/erythema/swelling) Rectal: Deferred Extremity: Pedal Edema (Trace) Neurologic/Psychiatric: Other (Somnolent. Oriented to person and event.) Skin: Cool, Pallor Results/Procedures Lab Laboratory Tests 08/19/22 13:37 08/19/22 14:59 08/20/22 04:02 Patient resulted labs reviewed. Imaging: Reviewed Imaging Films Radiology NAME: CHARLIE CORONADO [facility] REC#: [id number] PT STATUS: ADM IN : 1940 PHYSICIAN: PATRICK MACK MD ADMIT DATE: 08/12/22/ICU Signed Date of Exam:08/19/22 CHEST 1 VIEW, AP/PA ONLY Indication: Respiratory distress Frontal chest obtained at 2:50 p.m. and compared to 07/21/2022. There is cardiomegaly. Pacemaker is unchanged. There is some patchy infiltrate in the right lung base. Left lung is clear. There is no pneumothorax or pleural fluid. impression: Cardiomegaly. There is some patchy infiltrate in the right lung base which is new compared to the prior study, suspicious for pneumonia. Followup is recommended. Dictated by: Dictated on workstation # [id number] Dict: 08/19/22 1511 Trans: 08/19/22 1622 CVB [id number] Interpreted by: DONTAE HARPER MD Electronically signed by: DONTAE HARPER MD 08/19/22 1622 Assessment/Plan Assessment and Plan Assess & Plan/Chief Complaint This is a 81 y/o male originally admitted on 08/12 for right hemicolectomy for adenocarcinoma of the colon now on HD #8 Assessment/Plan Acute hypoxic respiratory failure Severe sepsis Paroxysmal atrial fibrillation Adenocarcinoma of the colon Diabetes mellitus Hx of dementia at baseline Hx of HTN Hx of HLD Sacral decubitus ulcer 1) Acute hypoxic respiratory failure /2 RLL pneumonia vs thromboembolism -CXR on 08/19 showing new RLL infiltrate -> Vanc/Cefepime initiated. R/p CXR on 08/20 showing some improvement of RLL opacification (interpretation pending). -ABG 7.32/58/62/29 on 08/20 suggesting respiratory acidosis with partial compensation -WBC 19.2 -> 13.5 (08/20) -D-dimer elevated; patient on VTE prophylaxis with Eliquis before decompensation, will switch to lovenox as patient is now unable to take PO. O2 sats have stabilized with current therapy and VTE seems less likely -BiPAP 18/; O2 sats stable -VSS 2) Paroxysmal Atrial Fibrillation - On Eliquis now Lovenox - On metoprolol - will switch to IV form - Rate is well controlled at this time 3) FEN/GI -Fluids: Albumin 200 ml ordered at 50 ml/hr; LR 100 ml/hr maintenance fluids. -Electrolytes: ICU replacement protocol; replacing K, Mg today -Nutrition: NPO/unable to take anything by mouth due to reduced LOC/absent gag reflex -GI: Pepcid, no bowel regimen currently - Urine output yesterday 1.02 ml/kg/hr down to 0.02 ml/kg/hr this AM. 4) Adenocarcinoma of the colon s/p Right colon resection -Cares per surgery team -Hgb 9.0 -> 8.2 from yesterday; 7.2 on admit. Likely dilutional as had otherwise been stable. 5) Sacral decubitus ulcer -Unable to appreciate on exam as patient unable to turn; -Wound team and nursing cares per protocol 6) Diabetes mellitus -ISS 7) Hx of Dementia: -Donepezil - holding d/t NPO status 8) Hx of HTN/HLD -Holding home meds d/t NPO status TYRA SANDERS DO 08/21/22 0451: Supervisory-Addendum Brief Verification & Attestation Participated in pt care: history, MDM, physical Personally performed: exam, history, MDM, supervision of care Care discussed with: Medical Student Procedures: n/a Results interpretation: Verified all documentation Verification and Attestation of Medical Student E/M Service A medical student performed and documented this service in my presence. I reviewed and verified all information documented by the medical student and made modifications to such information, when appropriate. I personally performed the physical exam and medical decision making. Tyra Sanders, Aug 21, 2022,04:51 MILLA IBARRA Aug 20, 2022 09:18 TYRA SANDERS DO Aug 21, 2022 04:51
[2022-08-20 09:31] LABS: ABG BASE EXCESS 4.6 MMOL/L (-2.5-2.5); ABG OXYGEN SATURATION 95 % (94-100); ABG PCO2 61 MMHG (35-45); ABG PO2 71 MMHG (79-93); ABG TCO2 32.2 MMOL/L (21.0-31.0)
[2022-08-20 09:33] LABS: ABG PH 7.32 (7.37-7.43); ALLENS TEST POSITIVE; VENTILATOR YES
--- NOTE | 2022-08-20 09:33 | Diagnostic Imaging Report ---
CHEST 1 VIEW, AP/PA ONLY Indication: Pneumonia Comparison: 08/19/2022 Findings: Right mid and lower lung zone consolidations have mildly improved but persists. A small right pleural effusion similar. No pneumothorax. Stable cardiomegaly with left pectoral transvenous pacemaker. Impression: 1. Improving but persistent right basilar pneumonia. Dictated by: Dictated on workstation # [id number]
[2022-08-20] MEDS ORDERED: FUROSEMIDE 40 MG/4 ML INJ (LASIX) IVP ONE (10:30)
[2022-08-20] MEDS: meTOprolol 5 MG/5 ML (LOPRESSOR) VIAL IV SCH ×3 (10:37→21:41)
[2022-08-20] MEDS: ENOXAPARIN 120 MG/0.8 ML (LOVENOX) SQ SCH ×2 (10:39→21:18)
[2022-08-20] MEDS: 1/2 NS IV SOLUTION 1,000 ML IV SCH ×3 (10:45→22:10)
--- NOTE | 2022-08-20 11:02 | Tele-ICU Progress Note ---
Subjective Date Seen by a Provider: Aug 20, 2022 Time Seen by a Provider: 11:01 Subjective/Events-last exam (Tele-ICU Physician , Progress Note ) Service provided via interactive audio and video telecommunications E-CARE system to a patient admitted to ICU bed in [facility]. Patient is seen today due to persistent need of ICU care Available chart/ vitals / labs / Images reviewed Video assessment done using teleICU camera, rest of exam as per RN Discussed with RN Events overnight : Afebrile hemodynamically stable Respiratory - I/O = Drips: Pressors- no Hospital course: (08/12) patient with recent laparoscopic hand assisted right colon resection for adenocarcinoma of right colon (08/19) 81 y M with discharge orders became unresponsive CXR PNA on vapotherm->-BIPAP, RLL PNA 3/2 - ABG WNL on BIPAP , 18/10 30 % rr 33 tv 350 MV 14L A/P Acute resp failure , hypoxic and hypercarbic , with new RLL PNA ( agree - risk of PE vely low on Eliquis ) - improved on BIPAP /10, but RR 30 - Bipap 18/10 30 % rr 33 tv 350 MV 14L PNA , RLL - suspected aspiration vs HAP, sligtly beter on cxr 3/2 - abg started - blood cx ordered Acute mental status changes - with hypercapnea 9 Resolved on bipap ) and TME , - better today Elev lactate - possible with hypoxia , normalised , 1 L IVF given overnight PAF - rate conterolled, can not take PO - will start on metoprolol IV for now - AC with Eliquis - can not take po - use lovenox today S/P Lap hand assisted Right Colon Resection for invasive moderately differentiated adenocarcinoma of cecum - as per sx - stable Anemia -stable CAD - trop is low DM II - follow ISS Lines : , (Central Line Necessity Reviewed) Garrett: OG: Nutrition: Analgesia: Anxiety/ delirium VTE Prophylaxis: eliquis / lovenox 3/2 Stress Ulcer Prophylaxis: na Plans in collaboration with bedside consultants and IM MDs. Discussed with RN to reach out if any questions or concerns A total of 33 minutes of critical care time was devoted to this patient today, required to treat and/or prevent further deterioration of critical care condition ( as above ) . I am remotely monitoring this patient from another state. I am unable to do the bedside exam, and history/physical and pertinent information is taken from other notes in the computer and bedside staff. . Sepsis Event Evaluation Height, Weight, BMI Height: 6'2.00" Weight: 324lbs. 3.0oz. 147.234828pr; 33.82 BMI Method:Stated Focused Exam Lactate Level 08/19/22 21:32: Lactic Acid Level 2.09*H 08/19/22 23:28: Lactic Acid Level 2.36*H 08/20/22 01:40: Lactic Acid Level 1.83 Exam Exam Patient acknowledged, consented, and participated in this virtual visit which was conducted using real time audio/video Vital Signs Date Time Temp Pulse Resp B/P (MAP) Pulse Ox O2 Delivery O2 Flow Rate FiO2 08/20/22 10:14 80 34 97 30.00 08/20/22 10:00 82 18 133/72 (92) 96 NIV Bilevel 30.00 08/20/22 09:00 85 19 139/73 (95) 93 NIV Bilevel 30.00 08/20/22 08:00 94 NIV Bilevel 30 08/20/22 08:00 93 19 124/68 (86) 95 NIV Bilevel 30.00 08/20/22 08:00 36.8 08/20/22 07:53 NIV Bilevel 30.00 08/20/22 07:00 96 24 128/68 (88) 93 NIV Bilevel 35.00 08/20/22 07:00 92 08/20/22 06:24 98 33 94 30.00 08/20/22 06:00 96 22 135/70 (91) 93 NIV Bilevel 35.00 08/20/22 05:00 95 21 133/71 (91) 94 NIV Bilevel 35.00 08/20/22 04:22 36.2 08/20/22 04:21 93 NIV Bilevel 30 08/20/22 04:00 96 21 120/62 (81) 96 NIV Bilevel 35.00 08/20/22 03:00 98 24 115/62 (79) 96 NIV Bilevel 35.00 08/20/22 02:26 99 27 95 30.00 08/20/22 02:00 102 24 98/62 (74) 95 NIV Bilevel 35.00 08/20/22 01:00 101 26 118/68 (85) 93 NIV Bilevel 35.00 08/20/22 01:00 101 08/20/22 00:00 128 27 118/64 (82) 94 NIV Bilevel 35.00 08/20/22 00:00 36.0 08/19/22 23:59 93 NIV Bilevel 30 08/19/22 23:00 102 25 117/67 (84) 93 NIV Bilevel 35.00 08/19/22 22:00 93 25 112/58 (76) 93 NIV Bilevel 35.00 08/19/22 21:55 80 28 94 30.00 08/19/22 21:00 79 26 116/65 (82) 94 NIV Bilevel 35.00 08/19/22 20:00 78 26 116/70 (85) 94 NIV Bilevel 35.00 08/19/22 20:00 92 NIV Bilevel 30 08/19/22 19:59 36.7 08/19/22 19:00 77 27 112/59 (76) 92 NIV Bilevel 35.00 08/19/22 19:00 93 08/19/22 18:55 NIV Bilevel 35.00 08/19/22 18:38 82 28 92 30.00 08/19/22 18:00 81 29 119/72 (88) 100 Vapotherm 30.00 90.00 08/19/22 17:17 87 33 95 100.00 08/19/22 17:00 80 28 122/62 (82) 95 Vapotherm 30.00 90.00 08/19/22 16:00 93 31 128/63 (84) 97 Vapotherm 30.00 90.00 08/19/22 15:59 120 08/19/22 15:45 120 28 113/65 (81) 93 Vapotherm 40.00 100.00 08/19/22 15:41 92 40.00 100 08/19/22 15:36 36.1 117 29 121/58 (79) 93 Vapotherm 40.00 100.00 08/19/22 15:15 79 124/63 (83) Vapotherm 40.00 100.00 08/19/22 15:12 82 08/19/22 14:54 Vapotherm 40.00 100 08/19/22 14:27 93 16 105/58 (74) 82 08/19/22 13:12 80 08/19/22 11:42 36.6 74 18 130/61 (84) 92 Nasal Cannula 5.00 I & O 08/20/22 07:00 Intake Total 3047.5 ml Output Total 2275 ml Balance 772.5 ml Height & Weight Height: 6'2.00" Weight: 324lbs. 3.0oz. 147.798120ft; 33.82 BMI Method:Stated General Appearance: No Apparent Distress, Obese HEENT: Moist Mucous Membranes Neck: Non Tender, Supple Respiratory: Rhonci (Most apparent on right side and lower right lobes. Left lung mitchell are more clear. Good air movement appreciated with equal chest rise. ) Cardiovascular: Regular Rate, Rhythm Capillary Refill: Less Than 3 Seconds Peripheral Pulses: 2+ Dorsalis Pedis (R), 2+ Left Dors-Pedis (L) Gastrointestinal: soft, hernia (incisional hernia LLQ), other (incisions are clean/dry/ and intact) Extremity: Pedal Edema (Trace) Neurologic/Psychiatric: Other (Somnolent. Oriented to person and event.) Skin: Cool, Pallor Lymphatic: No Adenopathy Results Lab Laboratory Tests 08/19/22 05:11 08/19/22 13:37 08/19/22 14:59 08/20/22 04:02 Assessment/Plan Assessment/Plan 1 LIT POWELL MD Aug 20, 2022 11:02
[2022-08-20] MEDS: DONEPEZIL 10 MG (ARICEPT) TAB PO SCH (20:14)
[2022-08-20] MEDS: AtorvaSTATin TABLET 10 MG TABLET PO SCH (20:14)
[2022-08-21] MEDS: meTOprolol 5 MG/5 ML (LOPRESSOR) VIAL IV SCH ×4 (03:19→19:59)
[2022-08-21 04:00] VITALS: BP 197/86
[2022-08-21] MEDS ORDERED: TROUGH ORDER-PHARMACY XX NR (05:00)
[2022-08-21] MEDS: CEFEPIME INJECTION 1,000 MG in NS (IVPB) 50 ML IV SCH ×4 (06:09→22:29)
[2022-08-21] MEDS: VANCOMYCIN 1 GM/NS 250 ML IVPB IV SCH ×2 (06:19)
[2022-08-21] MEDS: GABAPENTIN 300 MG (NEURONTIN) CAP PO SCH ×3 (06:20→14:00)
[2022-08-21] MEDS: inSUlin ASPART (NovoLOG) 1 UNIT/0.01 ML (CHARGE PER UNIT) SC SCH ×3 (06:26→18:49)
--- NOTE | 2022-08-21 07:13 | Progress Note - Surgery ---
LANNYJEAN MARIERANDA Marc 08/21/22 0713: Subjective Date Seen by a Provider: Aug 21, 2022 Time Seen by a Provider: 06:48 Subjective/Events-last exam Pt laying in bed comfortably on BiPap. Pt is more alert today and easily roused. Pt states that he is feeling better today and denies SOB. Pt states that he is experiencing a dry intermittent cough. Repeat CXR on 08/20 showed improving but persistent right basilar pneumonia. Pt is tearful in room due to not being able to eat or drink. Pt also c/o abd pain but states it's due to hunger. Per nurse, pt is NPO d/t pt needing to have a swallow study done. Nurse states pt had a BM yesterday. Pt's urine output has improved today to .4cc/hr/kg over 24 hours. Pt has no other complaints at this time. Pt has been moved to palliative care at this time. Pt denies chills, nausea, vomiting, and CP. Review of Systems General: No Chills, No Appetite HEENT: No Eye Pain, No Ear Pain Pulmonary: No Dyspnea; Cough Cardiovascular: No: Chest Pain, Lt Headedness Gastrointestinal: Abdominal Pain (secondary to hunger); No: Nausea, Vomiting Genitourinary: No Dysuria, No Frequency Musculoskeletal: No: neck pain, shoulder pain Neurological: No: Weakness, Numbness Focused Exam Lactate Level 08/19/22 21:32: Lactic Acid Level 2.09*H 08/19/22 23:28: Lactic Acid Level 2.36*H 08/20/22 01:40: Lactic Acid Level 1.83 Objective Exam Vital Signs Date Time Temp Pulse Resp B/P (MAP) Pulse Ox O2 Delivery O2 Flow Rate FiO2 08/21/22 04:00 35.8 69 22 197/86 (123) 98 NIV Bilevel 30.00 08/21/22 03:00 72 22 98 30.00 08/21/22 01:00 64 08/20/22 23:33 35.9 67 22 166/74 (104) 99 NIV Bilevel 30.00 08/20/22 22:15 63 21 98 30.00 08/20/22 21:16 60 178/79 (112) 08/20/22 20:00 NIV Bilevel 30 08/20/22 19:30 36.8 65 20 186/90 (122) 99 NIV CPAP 30.00 08/20/22 19:00 62 08/20/22 19:00 62 23 95 30.00 08/20/22 15:47 36.5 63 20 138/66 (90) 99 NIV CPAP 30.00 08/20/22 14:39 35.9 64 18 154/78 (103) 99 NIV Bilevel 08/20/22 14:33 80 34 97 30.00 08/20/22 12:00 36.1 71 16 137/66 (89) 98 08/20/22 11:00 74 17 138/70 (92) 97 NIV Bilevel 30.00 08/20/22 10:14 80 34 97 30.00 08/20/22 10:00 82 18 133/72 (92) 96 NIV Bilevel 30.00 08/20/22 09:00 85 19 139/73 (95) 93 NIV Bilevel 30.00 08/20/22 08:00 94 NIV Bilevel 30 08/20/22 08:00 93 19 124/68 (86) 95 NIV Bilevel 30.00 08/20/22 08:00 36.8 08/20/22 07:53 NIV Bilevel 30.00 I & O 08/21/22 07:00 Intake Total 700 ml Output Total 1250 ml Balance -550 ml Capillary Refill : Less Than 3 SecondsLess Than 3 Seconds General Appearance: No Apparent Distress, Obese (morbidly), Other ( on BiPaP) HEENT: PERRL/EOMI, Moist Mucous Membranes Neck: Non Tender, Supple Respiratory: Chest Non Tender, No Respiratory Distress, Crackles (R base ), Expiration (slightly diminished), Wheezing (expiratory) Cardiovascular: No JVD, Irregularly Irregular Peripheral Pulses: 2+ Left Dors-Pedis (L) Gastrointestinal: non tender, soft (slightly more firm in lower quadrants than when compared to previous exam), other (incisions are clean/dry/ and intact) Extremity: Non Tender, Pedal Edema (trace pitting on RLE and b/l Hands) Neurologic/Psychiatric: Alert, Oriented x3 Skin: Normal Color, Warm/Dry Lymphatic: No Adenopathy Results Lab Laboratory Tests 08/20/22 09:19: Blood Gas Puncture Site L RADIAL, Blood Gas Patient Temperature 37.0, Arterial Blood pH 7.32*L, Arterial Blood Partial Pressure CO2 61H, Arterial Blood Partial Pressure O2 71L, Arterial Blood HCO3 30H, Arterial Blood Total CO2 32.2H, Arterial Blood Oxygen Saturation 95, Arterial Blood Base Excess 4.6H, Chris Test POSITIVE, Blood Gas Ventilator Setting YES, Blood Gas Inspired Oxygen 08/20/22 10:50: Glucometer 202H 08/20/22 15:42: Glucometer 168H 08/20/22 17:48: Glucometer 177H 08/20/22 23:30: Glucometer 177H 08/21/22 05:25: Vancomycin Level Trough 20.8H 08/21/22 06:14: Glucometer 183H Microbiology 08/19/22 Blood Culture - Preliminary, Resulted No growth 08/19/22 MRSA Screen - Final, Complete MRSA not isolated Assessment/Plan Assessment/Plan Assessment/Plan S/P Lap hand assisted 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 Feeling about same patient states. Cough. Wanting food. Did not pass swallow. Denies n/v fever sweats chills or chest pain. Objective Exam General Appearance: No Apparent Distress, Anxious, Other ( on BiPaP) HEENT: PERRL/EOMI, Normal ENT Inspection Neck: Non Tender, Supple Respiratory: Chest Non Tender, No Accessory Muscle Use, No Respiratory Distress Cardiovascular: No JVD, Irregularly Irregular Gastrointestinal: non tender, soft (slightly more firm in lower quadrants than when compared to previous exam), other (incisions are clean/dry/ and intact) Extremity: Non Tender, Pedal Edema (trace pitting on RLE and b/l Hands) Neurologic/Psychiatric: Alert, Oriented x3 Skin: Warm/Dry, Pallor Lymphatic: No Adenopathy Assessment/Plan Assessment/Plan Assessment/Plan S/P Lap hand assisted Right Colon Resection for invasive moderately differentiated adenocarcinoma of cecum Acute Respiratory Failure Aspiration PNA Leukocytosis-improved AFIB on chronic anti-coagulation Anemia Debilitated Type II Diabetes continue anticoagulation continue Abx for aspiration PNA Continue to monitor Hgb, transfuse <7 continue glucose control pain control prn continue medical management Continue to evaluate for passing bedside swallow, when does start diet. Supervisory-Addendum Brief Verification & Attestation Participated in pt care: history, MDM, physical Personally performed: exam, history, MDM, supervision of care Care discussed with: Medical Student Procedures: n/a Results interpretation: Verified all documentation Verification and Attestation of Medical Student E/M Service A medical student performed and documented this service in my presence. I reviewed and verified all information documented by the medical student and made modifications to such information, when appropriate. I personally performed the physical exam and medical decision making. Deedee Childs, Aug 21, 2022,16:12 RANDA GIBBS Aug 21, 2022 07:13 DEEDEE CHILDS DO Aug 21, 2022 16:08
[2022-08-21 07:40] VITALS: BP 193/81
[2022-08-21] MEDS: lisINopril 20 MG (PRINIVIL) TABLET PO SCH (09:03)
[2022-08-21] MEDS: FAMOTIDINE 20MG/2ML IV (PEPCID) IVP SCH ×2 (09:03→19:59)
[2022-08-21] MEDS: ENOXAPARIN 120 MG/0.8 ML (LOVENOX) SQ SCH ×2 (09:13→20:10)
[2022-08-21 10:04] LABS: BASOPHILS % (AUTO) 0 % (0-10); EOSINOPHILS # (AUTO) 0.2 10^3/uL (0.0-0.3); EOSINOPHILS % (AUTO) 2 % (0-10); HEMATOCRIT 27 % (40-54); HEMOGLOBIN 7.2 g/dL (13.3-17.7); LYMPHOCYTES # (AUTO) 0.4 10^3/uL (1.0-4.0); LYMPHOCYTES % (AUTO) 5 % (12-44); MEAN CORPUSCULAR HEMOGLOBIN 20 pg (25-34); MEAN CORPUSCULAR HGB CONC 27 g/dL (32-36); MEAN CORPUSCULAR VOLUME 72 fL (80-99); MEAN PLATELET VOLUME 9.7 fL (9.0-12.2); MONOCYTES # (AUTO) 0.8 10^3/uL (0.0-1.0); MONOCYTES % (AUTO) 10 % (0-12); NEUTROPHILS # (AUTO) 6.4 10^3/uL (1.8-7.8); NEUTROPHILS % (AUTO) 82 % (42-75); PLATELET COUNT 311 10^3/uL (130-400); WHITE BLOOD COUNT 7.8 10^3/uL (4.3-11.0)
[2022-08-21 10:15] LABS: ALBUMIN 3.2 GM/DL (3.2-4.5); POTASSIUM 3.1 MMOL/L (3.6-5.0)
[2022-08-21 10:16] LABS: CALCIUM 8.3 MG/DL (8.5-10.1)
[2022-08-21 10:17] LABS: TOTAL PROTEIN 5.6 GM/DL (6.4-8.2)
[2022-08-21 10:19] LABS: BILIRUBIN,TOTAL 0.5 MG/DL (0.1-1.0)
[2022-08-21 10:21] LABS: CREATININE SERUM 0.82 MG/DL (0.60-1.30)
[2022-08-21] MEDS: 1/2 NS IV SOLUTION 1,000 ML IV SCH (11:14)
[2022-08-21 11:41] VITALS: BP 193/79
[2022-08-21] MEDS: D5 1/2 NS W/KCL 20 MEQ/L 1,000 ML IV SCH (11:55)
[2022-08-21] MEDS ORDERED: TROUGH ORDER-PHARMACY XX ONE (12:00)
--- NOTE | 2022-08-21 12:44 | Speech Therapy Progress Note ---
Therapy Progress Note ST received the clinical bedside swallowing evaluation and completed a chart review. ST attempted the evaluation at 1230. At this time, the patient is on BiPAP. Per RN, the RN contacted RT for the patient to be removed from BiPAP and placed on Vapotherm. The clinician will re-attempt the evaluation on this date, once the patient has been removed from BiPAP appropriately and safely. Per RN, the patient was displaying s/s of suspected aspiration with thin liquids characterized by a cough earlier in the week. RAYRAY FOWLER Aug 21, 2022 12:44
--- NOTE | 2022-08-21 13:12 | Progress Note - Hospitalist ---
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 His post- operative course progressed as expected with minimal issues with pain, occasional agitation treated with PRNs, and a spontaneous return of bowel f unction and diet advancement as tolerated. Patient had some noted slight peripheral extremity edema as well as course rhonchi noted on exams. The afternoon of 08/18/22 the patient was seen by surgery and IM teams and was planning for DC home with routine follow-up but later in the day became unrespon sive with O2 sats falling to the low 80% despite vapotherm therapy. The patient was transferred to the ICU and the family expressed that the patient had expressed wishes to be a DNI/DNR and would want to avoid intubation and invasive treatments but agreed that despite the decrease LOC and risk of aspiration they would be ok with trying to maintain the patient's oxygentation using NIV and BIPAP was initiated. A CXR was obtained and suggested a right lower lobe pneumonia. Cultures were acquired and patient was placed on Vanc/Cefepime for broad spectrum coverage of probable aspiration pneumonia. Overnight the patient's O2 sats stabilized while on BIPAP and with severe sepsis treatment of antibiotics/albumin/fluids. Subjective/Events-last exam Patient seen at bedside. His daughter is present this AM. He is still on BIPAP at this time. Appears to be resting comfortably and not in distress. His daughter reports that he has been upset that he can't eat or drink and says he does respond to the family members. Upon interview he is rousable and knows his name and says he is cold during exam but doesn't know where he is or who is with him. He is very hard at keeping attention and often closes his eyes after being asked questions. His daughter is concerned that his urine output has been low and wishes to know what the outlook looks like for continuing BIPAP or being ab le to try for nutrition. BM reported on I&O for yesterday. Focused Exam Lactate Level 08/19/22 21:32: Lactic Acid Level 2.09*H 08/19/22 23:28: Lactic Acid Level 2.36*H 08/20/22 01:40: Lactic Acid Level 1.83 Objective Exam Vital Signs Vital Signs Date Time Temp Pulse Resp B/P (MAP) Pulse Ox O2 Delivery O2 Flow Rate FiO2 08/21/22 12:39 60 08/21/22 11:41 36.3 20 193/79 (117) 98 Vapotherm 30.00 08/20/22 20:00 30 Capillary Refill : Less Than 3 SecondsLess Than 3 Seconds General Appearance: No Apparent Distress, Chronically ill, Other (Somnolent. Not alert.) HEENT: PERRL/EOMI Neck: Non Tender, Supple Respiratory: Chest Non Tender, Other (Coarse rhonchi in RLL field, otherwise clear in other lung mitchell and moving air well. ) Cardiovascular: Regular Rate, Rhythm, Other (Trace lower extremity edema.) Gastrointestinal: Normal Bowel Sounds, Non Tender Neurologic/Psychiatric: Other (Alerts to voice/questions. Very somnolent.) Skin: Cool Results/Procedures Lab Laboratory Tests 08/21/22 09:55 Patient resulted labs reviewed. Imaging: Reviewed Imaging Films Radiology NAME: [facility] REC#: [id number] PT STATUS: ADM IN : 1940 PHYSICIAN: LIT POWELL MD ADMIT DATE: 08/12/22/ICU Signed Date of Exam:08/20/22 CHEST 1 VIEW, AP/PA ONLY CHEST 1 VIEW, AP/PA ONLY Indication: Pneumonia Comparison: 08/19/2022 Findings: Right mid and lower lung zone consolidations have mildly improved but persists. A small right pleural effusion similar. No pneumothorax. Stable cardiomegaly with left pectoral transvenous pacemaker. Impression: 1. Improving but persistent right basilar pneumonia. Dictated by: Dictated on workstation # [id number] Dict: 08/20/2228 Trans: 08/20/22[facility] [id number] Interpreted by: MARCELO FARR MD Electronically signed by: MARCELO FARR MD 08/20/22 3606 Assessment/Plan Assessment and Plan Assess & Plan/Chief Complaint This is a 81 y/o male originally admitted on 08/12 for right hemicolectomy for adenocarcinoma of the colon now on HD #9 Assessment/Plan Acute hypoxic respiratory failure Severe sepsis Paroxysmal atrial fibrillation Adenocarcinoma of the colon Diabetes mellitus Hx of dementia at baseline Hx of HTN Hx of HLD Sacral decubitus ulcer 1) Acute hypoxic respiratory failure / RLL pneumonia vs thromboembolism -CXR on 08/19 showing new RLL infiltrate -> Vanc/Cefepime initiated. R/p CXR on 08/20 showing some improvement of consolidation. Will DC Vancomycin today. -ABG 7.32/58/62/29 on 08/20 suggesting respiratory acidosis with partial compensation; POC venous blood gases showing improvement on 08/21 -WBC 19.2 -> 13.5 (08/20) -D-dimer elevated; patient on VTE prophylaxis with Eliquis before decompensation, will switch to lovenox as patient is now unable to take PO. O2 sats have stabilized with current therapy and VTE seems less likely -BiPAP 18/10; O2 sats stable --> Switch to vapotherm and wean O2 as able. -VSS 2) Paroxysmal Atrial Fibrillation - On Eliquis now Lovenox - On metoprolol - will switch to IV form - Rate is well controlled at this time 3) FEN/GI -Fluids: Switched to D5 /2 N.S w/ K+ at 70 ml/hr for maitenance. -Electrolytes: K+ in fluids. -Nutrition: NPO pending Speech therapy evaluation -GI: Pepcid, no bowel regimen currently - Urine output yesterday 0.02 ml/kg/hr yesterday AM now upto 0.17 ml/kg/hr today (08/21), Cr and BUN are trending up but currently WNL, continue to monitor, if remaining NPO may increase maitenance rate, consider bolus. 4) Adenocarcinoma of the colon s/p Right colon resection -Cares per surgery team -Hgb 9.0 -> 8.2 (08/20); 7.2 on admit. Likely dilutional as had otherwise been stable. -Pathology: "G2 moderately differentiated colonic adenocarcinoma extending to serosal surface with negative margins." "21 lymph nodes negative for malignancy." 5) Sacral decubitus ulcer -Unable to appreciate on exam as patient unable to turn; -Wound team and nursing cares per protocol 6) Diabetes mellitus -ISS 7) Hx of Dementia: -Donepezil - holding d/t NPO status 8) Hx of HTN/HLD -Holding home meds d/t NPO status MINNIE SANDERS DO 08/22/22 0540: Supervisory-Addendum Brief Verification & Attestation Participated in pt care: history, MDM, physical Personally performed: exam, history, MDM, supervision of care Care discussed with: Medical Student Procedures: n/a Results interpretation: Verified all documentation Verification and Attestation of Medical Student E/M Service A medical student performed and documented this service in my presence. I reviewed and verified all information documented by the medical student and made modifications to such information, when appropriate. I personally performed the physical exam and medical decision making. Minnie Sanders, Aug 22, 2022,05:39 MILLA IBARRA Aug 21, 2022 13:12 MINNIE SANDERS DO Aug 22, 2022 05:40
--- NOTE | 2022-08-21 14:37 | ST Dysphagia Evaluation ---
Speech Evaluation-General Medical Diagnosis Adenocarcinoma of the Colon Onset Date: Aug 12, 2022 Therapy Diagnosis Therapy Diagnosis: Oropharyngeal Dysphagia Precautions Precautions: Fall, Pressure Ulcer, Aspiration Precautions/Isolations: Aspiration, Fall Prevention, Standard Precautions, Pressure Ulcer Referral Referring Physician: Dr. Foley Reason for Referral: Evaluation/Treatment Medical History Pertinent Medical History: Arthritis, CAD, DM, Dementia, HTN Reviewed History: Yes Speech PLF/Current-Dysphagia Prior Level of Function The patient's prior level of P.O. intake is unknown to this clinician. Per patient's RN, the patient demonstrated s/s of suspected aspiration prior in the week as displayed through cough following the swallow with thin liquids. The patient has family members present at bedside who state the patient, "Doesn't have any more difficulty than any one of us would." To note, throughout the study the patient displayed a rigorous cough following thin liquids. Per patient, the cough is frequently present following the swallow. Subjective The patient was reclined in bed upon entrance to his room by the clinician. The patient was positioned upright for safe swallowing position. The patient greeted the clinician appropriately and was agreeable to participation in the clinical bedside swallowing evaluation. The patient is currently receiving Vapotherm at a rate of 20LPM and 35%. The patient's vocal quality is harsh, weak, and breathy. Prior to P.O. trials, the patient's vocal quality additionally displays "wetness." Cognitive Status Patient Orientation: Confused Oral Motor Skills Dentition: Natural Ability to Follow Directions: Poor Oral Expression Ability: Moderate Impairment Observation: Excessive Excretion Hypopharynx Voice Voice Phonatory-Based Quality: Breathy, Harsh, Weak Voice Pitch: Normal Voice Loudness: Moderately Soft/Quiet Face Facial Symmetry: Symmetrical Oral-Facial Assessment Labial Seal Description: Normal Smile: Normal Lingual Protrusion: Normal Lingual ROM: Normal Lingual Strength: Normal Volitional Dry Swallow: No Voluntary Cough: No Can Clear Throat Volitionally: No Productive Cough: Yes Productive Throat Clear: Yes Dysphagia Evaluation Consistencies Presented: Thin Liquid (Ice chips, teaspoons, and straw drinks.) The patient does not display an overt oral impairment to the swallow function visible to the clinician at bedside. Premature spillage of bolus material to the pharynx is suspected. Laryngeal elevation was present to palpation. Poor airway protection in the presence of bolus material was present. Funct. Velo/Pharyngeal Symptom: Cough After Swallow, Wet Voice The patient was provided one ice chip, five teaspoons, and one straw drink of water (thin liquid). The patient does not display overt s/s of suspected aspiration with ice chips. The patient does demonstrate an minimally wet (intermittent) vocal quality with ice chips, however, a wet vocal quality was present at bedside. Following the straw drink of thin liquid, the patient demonstrated an immediate rigorous cough, red face, watery eyes and an overtly wet vocal quality. Due to the persistent cough, an O2 monitor was located by the clinician. The patient's SpO2% ranged between 87% and 73%. The RN was notified, who notified RT. With correct placement of the nasal cannula (the patient had removed one side), time, and deep breathing, the patient was able to return to 96%. Regardless of return to 96%, the patient's cough response remained. Due to the rigorous, consistent coughing, oral trials were terminated as the patient is unable to safely consume P.O. intake with the cough present and the clinician will not be able to decipher swallowing safety in the presence of the consistent cough response. Dietary Recommendations: NPO Liquid Recommendations: NPO Recommendations: - Continue N.P.O. status. - Frequent and excellent oral care to reduce the transfer of oral bacteria to the lungs should aspiration of secretions occur. - Moist oral swabs for comfort, only. - Speech pathology to re-assess the oropharyngeal swallowing function when able and appropriate (the study was terminated following 45 minutes of consistent, rigorous coughing). ST to reattempt the swallow study on this date. The patient and the patient's family were provided the recommendations immediately following completion of the swallowing study. Additionally, the clinician visited with the family regarding s/s of suspected aspiration and rationale towards why the patient is deemed unsafe to continue the evaluation with the consistent, rigorous cough. The patient's family verbalized comprehension of the material. RT presented to bedside once the patient had returned to 96%. RT adjusted Vapotherm to 20LPM at 40%. Dysphagia Evaluation Summary The patient demonstrated oropharyngeal dysphagia characterized by reduced lingual coordination and poor airway protection in the presence of bolus material. The swallow study was terminated for patient safety due to persistent coughing. ST to reattempt the evaluation on this date. Speech Short Term Goals Short Term Goals Short Term Goals 1. The patient will demonstrate safe swallowing strategies with 80% accuracy and moderate verbal and visual cueing. Speech Detention Goals Detention Goals 1. The patient will tolerate the least restrictive diet consistency without s/s of suspected aspiration. Time Frame: One Week. Speech-Plan Treatment Plan Speech Therapy Treatment Plan: Continue Plan of Care Treatment Duration: Aug 28, 2022 Frequency: 3 times per week Estimated Hrs Per Day: .25 hour per day Rehab Potential: Guarded Pt/Family Agrees to Plan: Yes Safety Risks/Education Teaching Recipient: Patient, Family Teaching Methods: Discussion Response to Teaching: Reinforcement Needed Education Topics Provided: Results, Recommendations, Oropharyngeal Swallowing Anatomy, S/s of Suspected Aspiration Time Speech Therapy Time In: 13:45 Speech Therapy Time Out: 14:30 DATE: Aug 21, 2022 Total Billed Time: 45 Billed Treatment Time 1, MARIELY GRAVES ELIZABETH ST Aug 21, 2022 14:37
--- NOTE | 2022-08-21 15:18 | Speech Therapy Progress Note ---
Therapy Progress Note ST reattempted the clinical bedside swallowing evaluation at 1500. At this time, the patient has returned to BiPAP and is resting comfortably with family at bedside. Due to the presence of BiPAP, the clinician is unable to complete clinical bedside swallowing evaluation with the patient. The clinician visited with the patient's RN regarding the patient's N.P.O. status and information regarding speech pathology's schedule (no speech coverage throughout the weekend). The clinician encouraged nursing staff to follow the nursing bedside swallowing protocols in place as appropriate. ST did recommend the patient not be provided thin liquids. Additionally, the clinician recommended no higher than puree consistencies for energy conservation if deemed safe and appropriate throughout the nursing screen. ST to follow up with the patient on the subsequent treatment date (08/24/2022). RAYRAY FOWLER Aug 21, 2022 15:18
[2022-08-21 15:53] VITALS: BP 175/85
[2022-08-21 19:30] VITALS: BP 176/82
[2022-08-21] MEDS: AtorvaSTATin TABLET 10 MG TABLET PO SCH (20:02)
[2022-08-21] MEDS: DONEPEZIL 10 MG (ARICEPT) TAB PO SCH (20:02)
[2022-08-21] MEDS: morphine INJ 4 MG/ML 1 ML (VIAL/SYRINGE) IVP PRN (22:31)
[2022-08-22] VITALS (8 sets, daily range): BP systolic 165–187; BP diastolic 50–86
[2022-08-22] MEDS: inSUlin ASPART (NovoLOG) 1 UNIT/0.01 ML (CHARGE PER UNIT) SC SCH ×5 (00:11→23:56)
[2022-08-22] MEDS: meTOprolol 5 MG/5 ML (LOPRESSOR) VIAL IV SCH ×4 (03:44→20:05)
[2022-08-22] MEDS: D5 1/2 NS W/KCL 20 MEQ/L 1,000 ML IV SCH ×2 (03:44→07:21)
[2022-08-22] MEDS: CEFEPIME INJECTION 1,000 MG in NS (IVPB) 50 ML IV SCH ×4 (04:16→22:27)
[2022-08-22 05:29] LABS: BASOPHILS % (AUTO) 1 % (0-10); EOSINOPHILS # (AUTO) 0.2 10^3/uL (0.0-0.3); EOSINOPHILS % (AUTO) 4 % (0-10); HEMATOCRIT 25 % (40-54); LYMPHOCYTES # (AUTO) 0.6 10^3/uL (1.0-4.0); LYMPHOCYTES % (AUTO) 9 % (12-44); MEAN CORPUSCULAR HEMOGLOBIN 20 pg (25-34); MEAN CORPUSCULAR HGB CONC 28 g/dL (32-36); MEAN CORPUSCULAR VOLUME 71 fL (80-99); MEAN PLATELET VOLUME 10.3 fL (9.0-12.2); MONOCYTES # (AUTO) 0.8 10^3/uL (0.0-1.0); MONOCYTES % (AUTO) 13 % (0-12); NEUTROPHILS # (AUTO) 4.7 10^3/uL (1.8-7.8); NEUTROPHILS % (AUTO) 74 % (42-75); PLATELET COUNT 331 10^3/uL (130-400); WHITE BLOOD COUNT 6.3 10^3/uL (4.3-11.0)
[2022-08-22 05:46] LABS: ALBUMIN 2.9 GM/DL (3.2-4.5); BILIRUBIN,TOTAL 0.5 MG/DL (0.1-1.0); CALCIUM 8.5 MG/DL (8.5-10.1); CREATININE SERUM 0.87 MG/DL (0.60-1.30); POTASSIUM 2.9 MMOL/L (3.6-5.0); TOTAL PROTEIN 5.6 GM/DL (6.4-8.2)
[2022-08-22] MEDS: GABAPENTIN 300 MG (NEURONTIN) CAP PO SCH ×3 (05:47→14:14)
--- NOTE | 2022-08-22 07:34 | Progress Note - Hospitalist ---
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 His post- operative course progressed as expected with minimal issues with pain, occasional agitation treated with PRNs, and a spontaneous return of bowel function and diet advancement as tolerated. Patient had some noted slight peripheral extremity edema as well as course rhonchi noted on exams. The afternoon of 08/18/22 the patient was seen by surgery and IM teams and was planning for DC home with routine follow-up but later in the day became unresponsive with O2 sats falling to the low 80% despite vapotherm therapy. The patient was transferred to the ICU and the family expressed that the patient had expressed wishes to be a DNI/DNR and would want to avoid intubation and invasive treatments but agreed that despite the decrease LOC and risk of aspiration they would be ok with trying to maintain the patient's oxygentation using NIV and BIPAP was initiated. A CXR was obtained and suggested a right lower lobe pneumonia. Cultures were acquired and patient was placed on Vanc/Cefepime for broad spectrum coverage of probable aspiration pneumonia. Overnight the patient's O2 sats stabilized while on BIPAP and with severe sepsis treatment of antibiotics/albumin/fluids. Subjective/Events-last exam Patient becoming very agitated Refusing biPAP CO2 narcosis likely the cause Refuses Vapotherm Updated Rashard his DPOA Aggressive with nurse Brock ordered Review of Systems Neurological: Confusion Focused Exam Lactate Level 08/19/22 21:32: Lactic Acid Level 2.09*H 08/19/22 23:28: Lactic Acid Level 2.36*H 08/20/22 01:40: Lactic Acid Level 1.83 Objective Exam Vital Signs Vital Signs Date Time Temp Pulse Resp B/P (MAP) Pulse Ox O2 Delivery O2 Flow Rate FiO2 08/22/22 19:32 66 08/22/22 19:09 36.7 20 175/72 (106) 92 Face Tent 10.00 08/22/22 10:24 35 Capillary Refill : Less Than 3 SecondsLess Than 3 Seconds General Appearance: Chronically ill, Obese Respiratory: No Accessory Muscle Use, No Respiratory Distress, Decreased Breath Sounds Cardiovascular: Regular Rate, Rhythm Neurologic/Psychiatric: Alert, Disoriented Results/Procedures Lab Laboratory Tests 08/22/22 05:19 Patient resulted labs reviewed. Imaging: Reviewed Imaging Films Assessment/Plan Assessment and Plan Assess & Plan/Chief Complaint Assessment/Plan Acute hypoxic respiratory failure Severe sepsis Paroxysmal atrial fibrillation Adenocarcinoma of the colon Diabetes mellitus Hx of dementia at baseline Hx of HTN Hx of HLD Sacral decubitus ulcer 1) Acute hypoxic respiratory failure / RLL pneumonia vs thromboembolism -CXR on 08/19 showing new RLL infiltrate -> Vanc/Cefepime initiated. R/p CXR on 08/20 showing some improvement of consolidation. Will DC Vancomycin today. -ABG 7.32/58/62/29 on 08/20 suggesting respiratory acidosis with partial compensation; POC venous blood gases showing improvement on 08/21 -WBC 19.2 -> 13.5 (08/20) -D-dimer elevated; patient on VTE prophylaxis with Eliquis before decompensation, will switch to lovenox as patient is now unable to take PO. O2 sats have stabilized with current therapy and VTE seems less likely -BiPAP 07/04; O2 sats stable --> Switch to vapotherm and wean O2 as able. -VSS 2) Paroxysmal Atrial Fibrillation - On Eliquis now Lovenox - On metoprolol - will switch to IV form - Rate is well controlled at this time 3) FEN/GI -Fluids: Switched to D5 /2 N.S w/ K+ at 70 ml/hr for maitenance. -Electrolytes: K+ in fluids. -Nutrition: NPO pending Speech therapy evaluation -GI: Pepcid, no bowel regimen currently - Urine output yesterday 0.02 ml/kg/hr yesterday AM now upto 0.17 ml/kg/hr today (08/21), Cr and BUN are trending up but currently WNL, continue to monitor, if remaining NPO may increase maitenance rate, consider bolus. 4) Adenocarcinoma of the colon s/p Right colon resection -Cares per surgery team -Hgb 9.0 -> 8.2 (3/2); 7.2 on admit. Likely dilutional as had otherwise been stable. -Pathology: "G2 moderately differentiated colonic adenocarcinoma extending to serosal surface with negative margins." "21 lymph nodes negative for malignancy." 5) Sacral decubitus ulcer -Unable to appreciate on exam as patient unable to turn; -Wound team and nursing cares per protocol 6) Diabetes mellitus -ISS 7) Hx of Dementia: -Donepezil - holding d/t NPO status 8) Hx of HTN/HLD -Holding home meds d/t NPO status Plan: Vinod w[facility]ron Needs hospice MINNIE SANDERS DO Aug 22, 2022 07:34
[2022-08-22] MEDS: lisINopril 20 MG (PRINIVIL) TABLET PO SCH (08:58)
[2022-08-22] MEDS: FAMOTIDINE 20MG/2ML IV (PEPCID) IVP SCH ×2 (09:10→20:05)
[2022-08-22] MEDS: ENOXAPARIN 120 MG/0.8 ML (LOVENOX) SQ SCH ×2 (10:00→21:07)
--- NOTE | 2022-08-22 11:01 | Progress Note - Surgery ---
Subjective Date Seen by a Provider: Aug 22, 2022 Time Seen by a Provider: 09:46 Subjective/Events-last exam Feeling a little better. On vapotherm. wanting food. Pain controlled. Hgb stable from yesterday. Shaun n/v fever sweats chills shortness of breath or chest pain at this time. Focused Exam Lactate Level 08/19/22 21:32: Lactic Acid Level 2.09*H 08/19/22 23:28: Lactic Acid Level 2.36*H 08/20/22 01:40: Lactic Acid Level 1.83 Objective Exam Vital Signs Date Time Temp Pulse Resp B/P (MAP) Pulse Ox O2 Delivery O2 Flow Rate FiO2 08/22/22 10:24 95 Vapotherm 25.00 35 08/22/22 09:09 67 187/86 (119) 98 Vapotherm 35.00 25.00 08/22/22 07:45 36.3 60 18 180/79 (112) 96 Vapotherm 35.00 25.00 08/22/22 07:26 96 Vapotherm 25.00 35 08/22/22 07:00 60 08/22/22 03:45 36.2 62 20 171/76 (107) 96 Vapotherm 40.00 25.00 08/22/22 02:37 98 Vapotherm 25.00 35 08/22/22 01:00 63 08/22/22 00:22 36.5 64 16 175/50 (91) 98 Vapotherm 40.00 25.00 08/21/22 22:03 90 Vapotherm 25.00 40 08/21/22 20:00 Vapotherm 08/21/22 19:30 36.5 69 18 176/82 (113) 98 Vapotherm 40.00 25.00 08/21/22 19:00 70 08/21/22 18:38 Vapotherm 25.00 40 08/21/22 18:37 91 Room Air 08/21/22 15:53 36.2 68 28 175/85 (115) 98 NIV Bilevel 30.00 08/21/22 15:50 69 31 97 30.00 08/21/22 14:14 96 Vapotherm 25.00 40 08/21/22 12:45 99 Vapotherm 20.00 35 08/21/22 12:39 60 08/21/22 11:41 36.3 61 20 193/79 (117) 98 Vapotherm 30.00 I & O 08/22/22 07:00 Intake Total 100 ml Output Total 1225 ml Balance -1125 ml Capillary Refill : Less Than 3 SecondsLess Than 3 Seconds General Appearance: No Apparent Distress, Anxious, Other ( on BiPaP) HEENT: PERRL/EOMI, Normal ENT Inspection Neck: Non Tender, Supple Respiratory: Chest Non Tender, No Accessory Muscle Use, No Respiratory Distress Cardiovascular: No JVD, Irregularly Irregular Peripheral Pulses: 2+ Left Dors-Pedis (L) Gastrointestinal: non tender, soft (slightly more firm in lower quadrants than when compared to previous exam), other (incisions are clean/dry/ and intact) Extremity: Non Tender, Pedal Edema (trace pitting on RLE and b/l Hands) Neurologic/Psychiatric: Alert, Normal Mood/Affect Skin: Warm/Dry, Pallor Lymphatic: No Adenopathy Results Lab Laboratory Tests 08/21/22 11:21: Bedside Blood Gas pH (LAB) 7.369, Bedside Blood Gas pCO2 (LAB) 43.8, Bedside Blood Gas pO2 (LAB) 100, Bedside Blood Gas HCO3 (LAB) 25.3, POC Blood Gas Total CO2 Calc 27, Bedside Bl Gas O2 Saturation (Calc) 98, Bedside Arterial Blood Base Excess 0 08/21/22 11:45: Glucometer 171H 08/21/22 18:28: Glucometer 194H 08/22/22 00:05: Glucometer 194H 08/22/22 05:19: White Blood Count 6.3, Red Blood Count 3.56L, Hemoglobin 7.0L, Hematocrit 25L, Mean Corpuscular Volume 71L, Mean Corpuscular Hemoglobin 20L, Mean Corpuscular Hemoglobin Concent 28L, Red Cell Distribution Width 19.8H, Platelet Count 331, Mean Platelet Volume 10.3, Immature Granulocyte % (Auto) 0, Neutrophils (%) (Auto) 74, Lymphocytes (%) (Auto) 9L, Monocytes (%) (Auto) 13H, Eosinophils (%) (Auto) 4, Basophils (%) (Auto) 1, Neutrophils # (Auto) 4.7, Lymphocytes # (Auto) 0.6L, Monocytes # (Auto) 0.8, Eosinophils # (Auto) 0.2, Basophils # (Auto) 0.0, Immature Granulocyte # (Auto) 0.0, Sodium Level 150H, Potassium Level 2.9L, Chloride Level 112H, Carbon Dioxide Level 23, Anion Gap 15H, Blood Urea Nitrogen 20H, Creatinine 0.87, Estimat Glomerular Filtration Rate 87, BUN/Creatinine Ratio 23, Glucose Level 201H, Calcium Level 8.5, Corrected Calcium 9.4, Total Bilirubin 0.5, Aspartate Amino Transf (AST/SGOT) 13, Alanine Aminotransferase (ALT/SGPT) 8, Alkaline Phosphatase 59, Total Protein 5.6L, Albumin 2.9L Microbiology 08/19/22 Blood Culture - Preliminary, Resulted No growth 08/19/22 MRSA Screen - Final, Complete MRSA not isolated Assessment/Plan Assessment/Plan Assessment/Plan S/P Lap hand assisted Right Colon Resection for invasive moderately differentiated adenocarcinoma of cecum Acute Respiratory Failure Aspiration PNA Leukocytosis-improved AFIB on chronic anti-coagulation Anemia Debilitated Type II Diabetes continue anticoagulation continue Abx for aspiration PNA Continue to monitor Hgb, transfuse <7 continue glucose control pain control prn continue medical management Continue to evaluate for passing bedside swallow, when does start diet. DEEDEE SYLVESTER DO Aug 22, 2022 11:01
[2022-08-22] MEDS: hydrALAZINE (APESOLINE) 20 MG/ML VIAL IV PRN ×3 (12:26→22:27)
[2022-08-22] MEDS: morphine INJ 4 MG/ML 1 ML (VIAL/SYRINGE) IVP PRN ×3 (12:57→22:28)
[2022-08-22] MEDS ORDERED: WATER (STERILE) FOR INJ 10 ML BTL INJ SCH (16:15)
[2022-08-22] MEDS ORDERED: ZIPRASIDONE 20 MG INJ (GEODON) VIAL IM PRN (16:15)
[2022-08-22] MEDS: DONEPEZIL 10 MG (ARICEPT) TAB PO SCH (20:05)
[2022-08-22] MEDS: AtorvaSTATin TABLET 10 MG TABLET PO SCH (20:06)
[2022-08-23 03:27] VITALS: BP 165/63
[2022-08-23] MEDS: meTOprolol 5 MG/5 ML (LOPRESSOR) VIAL IV SCH ×2 (03:45→08:48)
[2022-08-23 03:49] VITALS: BP_SYST 162; BP_SYST 171; BP_DIAS 64; BP_DIAS 74
[2022-08-23] MEDS: CEFEPIME INJECTION 1,000 MG in NS (IVPB) 50 ML IV SCH (05:15)
[2022-08-23] MEDS: GABAPENTIN 300 MG (NEURONTIN) CAP PO SCH ×2 (05:21→08:48)
[2022-08-23] MEDS: inSUlin ASPART (NovoLOG) 1 UNIT/0.01 ML (CHARGE PER UNIT) SC SCH (05:48)
[2022-08-23] MEDS: D5 1/2 NS W/KCL 20 MEQ/L 1,000 ML IV SCH (05:48)
--- NOTE | 2022-08-23 07:10 | Progress Note - Hospitalist ---
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 His post- operative course progressed as expected with minimal issues with pain, occasional agitation treated with PRNs, and a spontaneous return of bowel function and diet advancement as tolerated. Patient had some noted slight peripheral extremity edema as well as course rhonchi noted on exams. The afternoon of 08/18/22 the patient was seen by surgery and IM teams and was planning for DC home with routine follow-up but later in the day became unresponsive with O2 sats falling to the low 80% despite vapotherm therapy. The patient was transferred to the ICU and the family expressed that the patient had expressed wishes to be a DNI/DNR and would want to avoid intubation and invasive treatments but agreed that despite the decrease LOC and risk of aspiration they would be ok with trying to maintain the patient's oxygentation using NIV and BIPAP was initiated. A CXR was obtained and suggested a right lower lobe pneumonia. Cultures were acquired and patient was placed on Vanc/Cefepime for broad spectrum coverage of probable aspiration pneumonia. Overnight the patient's O2 sats stabilized while on BIPAP and with severe sepsis treatment of antibiotics/albumin/fluids. Subjective/Events-last exam Comfort care orders placed after speaking to the daughter at bedside and that is what the family agrees on Review of Systems Neurological: Confusion Objective Exam Vital Signs Vital Signs Date Time Temp Pulse Resp B/P (MAP) Pulse Ox O2 Delivery O2 Flow Rate FiO2 08/23/22 09:01 36.3 65 18 194/83 (120) 90 Face Tent 9.00 08/22/22 10:24 35 Capillary Refill : Less Than 3 SecondsLess Than 3 Seconds General Appearance: Chronically ill, Obese, Other (semi-comatose) Results/Procedures Lab Patient resulted labs reviewed. Imaging: Reviewed Imaging Films Assessment/Plan Assessment and Plan Assess & Plan/Chief Complaint Assessment/Plan Acute hypoxic respiratory failure Severe sepsis Paroxysmal atrial fibrillation Adenocarcinoma of the colon Diabetes mellitus Hx of dementia at baseline Hx of HTN Hx of HLD Sacral decubitus ulcer 1) Acute hypoxic respiratory failure 2/ RLL pneumonia vs thromboembolism -CXR on 08/19 showing new RLL infiltrate -> Vanc/Cefepime initiated. R/p CXR on 08/20 showing some improvement of consolidation. Will DC Vancomycin today. -ABG 7.32/58/62/29 on 08/20 suggesting respiratory acidosis with partial compensation; POC venous blood gases showing improvement on 08/21 -WBC 19.2 -> 13.5 (08/20) -D-dimer elevated; patient on VTE prophylaxis with Eliquis before decompensation, will switch to lovenox as patient is now unable to take PO. O2 sats have stabilized with current therapy and VTE seems less likely -BiPAP 07/04; O2 sats stable --> Switch to vapotherm and wean O2 as able. -VSS 2) Paroxysmal Atrial Fibrillation - On Eliquis now Lovenox - On metoprolol - will switch to IV form - Rate is well controlled at this time 3) FEN/GI -Fluids: Switched to D5 06/22 N.S w/ K+ at 70 ml/hr for maitenance. -Electrolytes: K+ in fluids. -Nutrition: NPO pending Speech therapy evaluation -GI: Pepcid, no bowel regimen currently - Urine output yesterday 0.02 ml/kg/hr yesterday AM now upto 0.17 ml/kg/hr today (08/21), Cr and BUN are trending up but currently WNL, continue to monitor, if remaining NPO may increase maitenance rate, consider bolus. 4) Adenocarcinoma of the colon s/p Right colon resection -Cares per surgery team -Hgb 9.0 -> 8.2 (08/20); 7.2 on admit. Likely dilutional as had otherwise been stable. -Pathology: "G2 moderately differentiated colonic adenocarcinoma extending to serosal surface with negative margins." "21 lymph nodes negative for malignancy." 5) Sacral decubitus ulcer -Unable to appreciate on exam as patient unable to turn; -Wound team and nursing cares per protocol 6) Diabetes mellitus -ISS 7) Hx of Dementia: -Donepezil - holding d/t NPO status 8) Hx of HTN/HLD -Holding home meds d/t NPO status Plan: Vinod delacruzn Needs hospice Comfort care today MINNIE SANDERS DO Aug 23, 2022 07:10
[2022-08-23] MEDS: lisINopril 20 MG (PRINIVIL) TABLET PO SCH (08:13)
--- NOTE | 2022-08-23 08:44 | Progress Note - Surgery ---
SAIRANDA 08/23/22 0844: Subjective Date Seen by a Provider: Aug 23, 2022 Time Seen by a Provider: 08:20 Subjective/Events-last exam Pt is sedated and sleeping comfortably in bed. Per nurse, pt became combative and aggressive yesterday afternoon and refused bedside swallow study, medicati ons, and vapotherm. Pt required Geodan to calm down. Pt's pathology resulted G2 moderately differentiated colonic adenocarcinoma extending to serosal surface with negative margins. All 21 lymph nodes were negative for malignancy. Nurse states pt's last BM was two days ago, abd soft, though pt did grunt with abd palpation. Urine output adequate at .6ml/kg/hr. Per internal medicine note, hospice has been recommended. Review of Systems unable to complete secondary to pt sedation Objective Exam Vital Signs Date Time Temp Pulse Resp B/P (MAP) Pulse Ox O2 Delivery O2 Flow Rate FiO2 08/23/22 08:13 Face Tent 9.00 08/23/22 07:47 Room Air 08/23/22 07:00 62 08/23/22 03:49 36.4 67 16 162/74 (103) 92 Face Tent 10.00 08/23/22 03:27 36.4 73 95 08/23/22 01:23 72 08/22/22 23:40 36.4 73 16 165/63 (97) 95 OxyMask 10.00 08/22/22 21:52 93 Room Air 08/22/22 20:00 Face Tent 10.00 08/22/22 19:32 66 08/22/22 19:09 36.7 68 20 175/72 (106) 92 Face Tent 10.00 08/22/22 15:18 36.6 72 24 178/74 (108) 85 Room Air 08/22/22 13:27 88 Room Air 08/22/22 12:54 66 08/22/22 11:52 36.5 65 20 185/75 (111) 93 Vapotherm 35.00 25.00 08/22/22 10:24 95 Vapotherm 25.00 35 08/22/22 09:09 67 187/86 (119) 98 Vapotherm 35.00 25.00 I & O 08/23/22 07:00 Intake Total 0 ml Output Total 1425 ml Balance -1425 ml Capillary Refill : Less Than 3 SecondsLess Than 3 Seconds General Appearance: No Apparent Distress, Chronically ill, Obese HEENT: Moist Mucous Membranes Neck: Supple; No JVD Respiratory: No Accessory Muscle Use, No Respiratory Distress, Crackles (R side diffusely), Other (course lung sounds L ) Cardiovascular: No Murmur, Irregularly Irregular Gastrointestinal: soft, tenderness (slight pt grunting with abd palpation diffusely ), other (incisions are clean/dry/ and intact) Extremity: Non Tender, Pedal Edema (trace pitting on RLE and b/l Hands) Neurologic/Psychiatric: No Alert; No Motor/Sensory Deficits Skin: Warm/Dry, Pallor Lymphatic: No Adenopathy Results Lab Laboratory Tests 08/22/22 23:33: Glucometer 204H 08/23/22 05:41: Glucometer 218H Microbiology 08/19/22 Blood Culture - Preliminary, Resulted No growth 08/19/22 MRSA Screen - Final, Complete MRSA not isolated Assessment/Plan Assessment/Plan Assessment/Plan S/P Lap hand assisted Right Colon Resection for invasive moderately differentiated adenocarcinoma of cecum Acute Respiratory Failure Aspiration PNA Leukocytosis-improved AFIB on chronic anti-coagulation Anemia Debilitated Type II Diabetes continue anticoagulation continue Abx for aspiration PNA Continue to monitor Hgb, transfuse <7 continue glucose control pain control prn continue medical management Continue to evaluate for passing bedside swallow, when does start diet Geodan PRN for pt agitation DEEDEE CHILDS DO 08/23/22 1218: Subjective Subjective/Events-last exam Patient currently resting in bed with family at bedside. Combative and biting yesterday. Not wanting to use mask or supplemental o2. Was given Geodon. Patient resting comfortable at this time. Family considering placing on comfort care. Dr. Foley has discussed this with them. No other concerns at this time. Objective Exam General Appearance: No Apparent Distress, Chronically ill, Obese HEENT: PERRL/EOMI, Normal ENT Inspection Neck: Supple; No JVD Respiratory: Chest Non Tender, No Accessory Muscle Use, No Respiratory Distress, Crackles (R side diffusely), Other (course lung sounds L ) Cardiovascular: No JVD, Irregularly Irregular Gastrointestinal: non tender, soft, other (incisions are clean/dry/ and intact) Extremity: Non Tender, Pedal Edema (trace pitting on RLE and b/l Hands) Neurologic/Psychiatric: No Alert, No Oriented x3, No Normal Mood/Affect Skin: Pallor Lymphatic: No Adenopathy Assessment/Plan Assessment/Plan Assessment/Plan S/P Lap hand assisted Right Colon Resection for invasive moderately differentiated adenocarcinoma of cecum Acute Respiratory Failure Aspiration PNA Leukocytosis-improved AFIB on chronic anti-coagulation Anemia Debilitated Type II Diabetes continue anticoagulation continue Abx for aspiration PNA Continue to monitor Hgb, transfuse <7 continue glucose control pain control prn continue medical management Continue to evaluate for passing bedside swallow, when does start diet Geodon PRN for pt agitation Family considering Comfort care Supervisory-Addendum Brief Verification & Attestation Participated in pt care: history, MDM, physical Personally performed: exam, history, MDM, supervision of care Care discussed with: Medical Student Procedures: n/a Results interpretation: Verified all documentation Verification and Attestation of Medical Student E/M Service A medical student performed and documented this service in my presence. I review ed and verified all information documented by the medical student and made modifications to such information, when appropriate. I personally performed the physical exam and medical decision making. Deedee Childs Aug 23, 2022,12:18 RANDA GIBBS Aug 23, 2022 08:44 DEEDEE CHILDS DO Aug 23, 2022 12:18
[2022-08-23] MEDS: FAMOTIDINE 20MG/2ML IV (PEPCID) IVP SCH (08:48)
[2022-08-23] MEDS: ENOXAPARIN 120 MG/0.8 ML (LOVENOX) SQ SCH (08:49)
[2022-08-23 09:01] VITALS: BP 194/83
[2022-08-23] MEDS: morphine INJ 4 MG/ML 1 ML (VIAL/SYRINGE) IVP PRN ×2 (09:03→23:09)
[2022-08-23] MEDS ORDERED: ACETAMINOPHEN 650 MG SUPP (TYLENOL) PR PRN (11:00)
[2022-08-23] MEDS ORDERED: RT-ALBUTEROL/IPRATROPIUM 3 ML (DUONEB) VIAL INH PRN (11:00)
[2022-08-23] MEDS ORDERED: SALIVA SUBSTITUTE 60 ML SPRAY(MOUTHKOTE) MM PRN (11:00)
[2022-08-23] MEDS ORDERED: GLYCOPYRROLATE 0.2 MG/ML (ROBINUL) 2 ML VIAL IV PRN (11:00)
[2022-08-23] MEDS ORDERED: BISACODYL 10 MG SUPP (DULCOLAX) PR PRN (11:00)
[2022-08-23] MEDS ORDERED: SCOPOLAMINE 1.5 MG (TRANSDERM-SCOP) PATCH TOP SCH (11:00)
[2022-08-23] MEDS ORDERED: morphine (ROXINOL) 10 MG/0.5 ML oral conc 0.5 ML PO PRN (11:00)
[2022-08-23] MEDS ORDERED: LORazepam 1 MG (ATIVAN) TAB SL PRN (11:00)
[2022-08-23] MEDS ORDERED: ONDANSETRON 4 MG/2 ML (SDV) Z0FRAN IVP PRN (11:00)
[2022-08-23] MEDS ORDERED: ARTIFICAL TEARS 0.4 ML UNIT DOSE (REFRESH PLUS) OU PRN (11:00)
[2022-08-24] MEDS: morphine INJ 4 MG/ML 1 ML (VIAL/SYRINGE) IVP PRN ×3 (05:40→14:40)
--- NOTE | 2022-08-24 06:54 | Progress Note - Surgery ---
RANDA GIBBS 08/24/22 0654: Subjective Date Seen by a Provider: Aug 24, 2022 Time Seen by a Provider: 06:40 Subjective/Events-last exam Pt is sleeping in bed comfortably, slightly sedated from morphine but does open eyes during physical exam. Pt was moved to comfort care and NPO yesterday. Nurse states pt did not have a BM yesterday. Urine output remains adequate at .5ml/kg/hr. Review of Systems unable to complete secondary to pt sedation Objective Exam Vital Signs Date Time Temp Pulse Resp B/P (MAP) Pulse Ox O2 Delivery O2 Flow Rate FiO2 08/23/22 20:00 Room Air 08/23/22 09:01 36.3 65 18 194/83 (120) 90 Face Tent 9.00 08/23/22 08:13 Face Tent 9.00 08/23/22 07:47 Room Air 08/23/22 07:00 62 I & O 08/24/22 07:00 Intake Total 0 ml Output Total 1050 ml Balance -1050 ml Capillary Refill : Less Than 3 SecondsLess Than 3 Seconds General Appearance: No Apparent Distress, Chronically ill, Obese, Other (semi- comatose) HEENT: PERRL/EOMI Neck: Supple; No JVD Respiratory: No Accessory Muscle Use, No Respiratory Distress, Crackles (B/L diffusely), Other (course lung sounds L ) Cardiovascular: No JVD, Irregularly Irregular Gastrointestinal: non tender, soft, other (incisions are clean/dry/ and intact) Extremity: Non Tender, Pedal Edema (trace pitting on RLE ) Neurologic/Psychiatric: No Alert, No Oriented x3, No Normal Mood/Affect Skin: Warm/Dry, Pallor Lymphatic: No Adenopathy Results Lab Microbiology 08/19/22 Blood Culture - Preliminary, Resulted No growth 08/19/22 MRSA Screen - Final, Complete MRSA not isolated Assessment/Plan Assessment/Plan Assessment/Plan S/P Lap hand assisted Right Colon Resection for invasive moderately differentiated adenocarcinoma of cecum Acute Respiratory Failure Aspiration PNA Leukocytosis-improved AFIB on chronic anti-coagulation Anemia Debilitated Type II Diabetes continue anticoagulation continue glucose control Morphine prn for comfort care Geodon prn for agitation NPO per internal medicine Pt moved to comfort care DEEDEE CHILDS DO 08/24/22 1305: Subjective Subjective/Events-last exam Patient comfortable. Family at bedside. Patient was made comfort care. Objective Exam General Appearance: No Apparent Distress, Chronically ill, Obese, Other (semi- comatose) HEENT: PERRL/EOMI Neck: Supple Respiratory: No Accessory Muscle Use, No Respiratory Distress Cardiovascular: No JVD, Irregularly Irregular Gastrointestinal: non tender, soft, other (incisions are clean/dry/ and intact) Extremity: Pedal Edema (trace pitting on RLE ) Neurologic/Psychiatric: No Alert, No Oriented x3, No Normal Mood/Affect Skin: Pallor Lymphatic: No Adenopathy Assessment/Plan Assessment/Plan Assessment/Plan S/P Lap hand assisted Right Colon Resection for invasive moderately differentiated adenocarcinoma of cecum Acute Respiratory Failure Aspiration PNA Leukocytosis-improved AFIB on chronic anti-coagulation Anemia Debilitated Type II Diabetes continue anticoagulation continue glucose control Morphine prn for comfort care Geodon prn for agitation NPO for failed swallow Pt moved to comfort care Supervisory-Addendum Brief Verification & Attestation Participated in pt care: history, MDM, physical Personally performed: exam, history, MDM, supervision of care Care discussed with: Medical Student Procedures: n/a Results interpretation: Verified all documentation Verification and Attestation of Medical Student E/M Service A medical student performed and documented this service in my presence. I reviewed and verified all information documented by the medical student and made modifications to such information, when appropriate. I personally performed the physical exam and medical decision making. Deedee Childs, Aug 24, 2022,13:05 RANDA GIBBS Aug 24, 2022 06:54 DEEDEE CHILDS DO Aug 24, 2022 13:05
--- NOTE | 2022-08-24 08:20 | Speech Therapy Progress Note ---
Therapy Progress Note ST to sign off on the patient for skilled services as comfort care measures were placed on 08/23/2022 at 1046. If speech pathology can provide any additional assistance, please re-consult. Thank you. RAYRAY FOWLER Aug 24, 2022 08:20
--- NOTE | 2022-08-24 10:44 | Discharge Summary ---
Discharge Summary Hospital Course Was the Problem List Reviewed?: Yes Problems/Dx: (1) Adenocarcinoma of colon Status: Acute (2) Complete heart block Status: Acute (3) IDDM (insulin dependent diabetes mellitus) Status: Chronic (4) CAD (coronary artery disease) Status: Chronic (5) Unresponsive state Status: Acute (6) Acute on chronic respiratory failure with hypoxia Status: Acute (7) Altered mental status Status: Acute Hospital Course Date of Admission: Aug 12, 2022 at 07:03 Admission Diagnosis : Family Physician/Provider: Kylie Stevenson Date of Discharge: 08/24/22 Discharge Diagnosis: [ ] Hospital Course: Lengthy course after he was admitted and had partial colon resection for cancer and on day he was to move [place] he was sent to ICU due to AMS when he was turned in bed. CO2 retention noted so he was placed on biPAP for days remaining DNR. Communication with family ensued frequently and ultimately they decided comfort care and hospice and he was ultimately DC to [place] on hospice. Labs and Pending Lab Test: Microbiology 08/19/22 Blood Culture - Preliminary, Resulted No growth 08/19/22 MRSA Screen - Final, Complete MRSA not isolated Home Meds Active Lisinopril 20 Mg Tablet 20 Mg PO DAILY Reported Insulin Lispro Kwikpen U-100 (Insulin Lispro) 100 Unit/Ml Insuln.pen 5 Units SQ AC Levemir Flextouch (Insulin Detemir) 100 Unit/Ml (3 Ml) Insuln.pen 15 Unit SQ 0600,1800 Escitalopram Oxalate 20 Mg Tablet 20 Mg PO DAILY Neurontin (Gabapentin) 300 Mg Capsule 300 Mg PO 0600,1000,1400 Assessment/Pt Instructions hospice Discharge Planning: <30 minutes discharge planning Discharge Physical Examination Vital Signs Vital Signs Date Time Temp Pulse Resp B/P (MAP) Pulse Ox O2 Delivery O2 Flow Rate FiO2 08/24/22 08:00 Room Air 08/23/22 09:01 36.3 65 18 194/83 (120) 90 9.00 08/22/22 10:24 35 General Appearance: Obese, Other (comatose) Allergies: Coded Allergies: No Known Drug Allergies (Unverified , 08/11/22) Discharge Summary Date of Admission Aug 12, 2022 at 07:03 Date of Discharge Discharge Date: Aug 24, 2022 Discharge Time: 1400 Comfort Measures/ End of Life Care: Comfort Measures Discharge Diagnosis Assessment/Plan Acute hypoxic respiratory failure Severe sepsis Paroxysmal atrial fibrillation Adenocarcinoma of the colon Diabetes mellitus Hx of dementia at baseline Hx of HTN Hx of HLD Sacral decubitus ulcer 1) Acute hypoxic respiratory failure 2/ RLL pneumonia vs thromboembolism -CXR on 08/19 showing new RLL infiltrate -> Vanc/Cefepime initiated. R/p CXR on 08/20 showing some improvement of consolidation. Will DC Vancomycin today. -ABG 7.32/58/62/29 on 08/20 suggesting respiratory acidosis with partial compensation; POC venous blood gases showing improvement on 08/21 -WBC 19.2 -> 13.5 (08/20) -D-dimer elevated; patient on VTE prophylaxis with Eliquis before decompensation, will switch to lovenox as patient is now unable to take PO. O2 sats have stabilized with current therapy and VTE seems less likely -BiPAP 07/04; O2 sats stable --> Switch to vapotherm and wean O2 as able. -VSS 2) Paroxysmal Atrial Fibrillation - On Eliquis now Lovenox - On metoprolol - will switch to IV form - Rate is well controlled at this time 3) FEN/GI -Fluids: Switched to D5 06/22 N.S w/ K+ at 70 ml/hr for maitenance. -Electrolytes: K+ in fluids. -Nutrition: NPO pending Speech therapy evaluation -GI: Pepcid, no bowel regimen currently - Urine output yesterday 0.02 ml/kg/hr yesterday AM now upto 0.17 ml/kg/hr today (08/21), Cr and BUN are trending up but currently WNL, continue to monitor, if remaining NPO may increase maitenance rate, consider bolus. 4) Adenocarcinoma of the colon s/p Right colon resection -Cares per surgery team -Hgb 9.0 -> 8.2 (08/20); 7.2 on admit. Likely dilutional as had otherwise been stable. -Pathology: "G2 moderately differentiated colonic adenocarcinoma extending to serosal surface with negative margins." "21 lymph nodes negative for malignancy." 5) Sacral decubitus ulcer -Unable to appreciate on exam as patient unable to turn; -Wound team and nursing cares per protocol 6) Diabetes mellitus -ISS 7) Hx of Dementia: -Donepezil - holding d/t NPO status 8) Hx of HTN/HLD -Holding home meds d/t NPO status Plan: Vinod waldron Needs hospice Comfort care today MINNIE SANDERS DO Aug 24, 2022 10:44
[2022-08-24] MEDS ORDERED: MORP100S7 PO (10:45)
[2022-08-24] MEDS ORDERED: LORA2ORA PO (10:45)
--- NOTE | 2022-08-24 10:46 | Discharge Summary ---
Discharge Summary Hospital Course Hospital Course Date of Admission: Aug 12, 2022 at 07:03 Admission Diagnosis : Family Physician/Provider: Kylie Stevenson Date of Discharge: 08/24/22 Discharge Diagnosis: [ ] Hospital Course: [ ] Labs and Pending Lab Test: Microbiology 08/19/22 Blood Culture - Preliminary, Resulted No growth 08/19/22 MRSA Screen - Final, Complete MRSA not isolated Home Meds Active Lisinopril 20 Mg Tablet 20 Mg PO DAILY Reported Insulin Lispro Kwikpen U-100 (Insulin Lispro) 100 Unit/Ml Insuln.pen 5 Units SQ AC Levemir Flextouch (Insulin Detemir) 100 Unit/Ml (3 Ml) Insuln.pen 15 Unit SQ 0600,1800 Escitalopram Oxalate 20 Mg Tablet 20 Mg PO DAILY Neurontin (Gabapentin) 300 Mg Capsule 300 Mg PO 0600,1000,1400 Discharge Physical Examination Vital Signs Vital Signs Date Time Temp Pulse Resp B/P (MAP) Pulse Ox O2 Delivery O2 Flow Rate FiO2 08/24/22 08:00 Room Air 08/23/22 09:01 36.3 65 18 194/83 (120) 90 9.00 08/22/22 10:24 35 Allergies: Coded Allergies: No Known Drug Allergies (Unverified , 08/11/22) Discharge Summary Date of Admission Aug 12, 2022 at 07:03 Date of Discharge Discharge Date: Aug 24, 2022 Discharge Time: 1400 Comfort Measures/ End of Life Care: Comfort Measures Discharge Diagnosis Assessment/Plan Acute hypoxic respiratory failure Severe sepsis Paroxysmal atrial fibrillation Adenocarcinoma of the colon Diabetes mellitus Hx of dementia at baseline Hx of HTN Hx of HLD Sacral decubitus ulcer 1) Acute hypoxic respiratory failure 2/2 RLL pneumonia vs thromboembolism -CXR on 08/19 showing new RLL infiltrate -> Vanc/Cefepime initiated. R/p CXR on 08/20 showing some improvement of consolidation. Will DC Vancomycin today. -ABG 7.32/58/62/29 on 08/20 suggesting respiratory acidosis with partial compensation; POC venous blood gases showing improvement on 08/21 -WBC 19.2 -> 13.5 (08/20) -D-dimer elevated; patient on VTE prophylaxis with Eliquis before decompensation, will switch to lovenox as patient is now unable to take PO. O2 sats have stabilized with current therapy and VTE seems less likely -BiPAP 18/10; O2 sats stable --> Switch to vapotherm and wean O2 as able. -VSS 2) Paroxysmal Atrial Fibrillation - On Eliquis now Lovenox - On metoprolol - will switch to IV form - Rate is well controlled at this time 3) FEN/GI -Fluids: Switched to D5 1/2 N.S w/ K+ at 70 ml/hr for maitenance. -Electrolytes: K+ in fluids. -Nutrition: NPO pending Speech therapy evaluation -GI: Pepcid, no bowel regimen currently - Urine output yesterday 0.02 ml/kg/hr yesterday AM now upto 0.17 ml/kg/hr today (08/21), Cr and BUN are trending up but currently WNL, continue to monitor, if remaining NPO may increase maitenance rate, consider bolus. 4) Adenocarcinoma of the colon s/p Right colon resection -Cares per surgery team -Hgb 9.0 -> 8.2 (08/20); 7.2 on admit. Likely dilutional as had otherwise been stable. -Pathology: "G2 moderately differentiated colonic adenocarcinoma extending to serosal surface with negative margins." "21 lymph nodes negative for malignancy." 5) Sacral decubitus ulcer -Unable to appreciate on exam as patient unable to turn; -Wound team and nursing cares per protocol 6) Diabetes mellitus -ISS 7) Hx of Dementia: -Donepezil - holding d/t NPO status 8) Hx of HTN/HLD -Holding home meds d/t NPO status Plan: Vinod waldron Needs hospice Comfort care today MINNIE SANDERS DO Aug 24, 2022 10:46
== END 2022-08-24 15:20 | disposition hospice, inpatient (51) | DRG 329 ==
LOC: 4TH 07:03 → SURG 07:04 → 4TH 12:30 → ICU 08-19 15:13 → 4TH 08-20 14:35 → EDPENDDISDT 08-24 14:00
PROVIDERS: ADMIT Surgery; ATTEND Surgery
PROC: 0DTF0ZZ Resection of Right Large Intestine, Open Approach (ICD-10-PCS; principal; 2022-08-12 08:31)
PROC: 5A09357 Assistance with Respiratory Ventilation, Less than 24 Consecutive Hours, Continuous Positive Airway Pressure (ICD-10-PCS; 2022-08-19)
PROC: 5A0935A Assistance with Respiratory Ventilation, Less than 24 Consecutive Hours, High Flow/Velocity Cannula (ICD-10-PCS; 2022-08-19)
DX: C18.0 Malignant neoplasm of cecum (principal); A41.9 Sepsis, unspecified organism; R65.20 Severe sepsis without septic shock; J69.0 Pneumonitis due to inhalation of food and vomit; J18.9 Pneumonia, unspecified organism; J96.22 Acute and chronic respiratory failure with hypercapnia; J96.21 Acute and chronic respiratory failure with hypoxia; Z66 Do not resuscitate; Z51.5 Encounter for palliative care; I44.2 Atrioventricular block, complete; I48.92 Unspecified atrial flutter; F03.90 Unspecified dementia, unspecified severity, without behavioral disturbance, psychotic disturbance, mood disturbance, and anxiety; I48.0 Paroxysmal atrial fibrillation; Z79.01 Long term (current) use of anticoagulants; I10 Essential (primary) hypertension; I25.10 Atherosclerotic heart disease of native coronary artery without angina pectoris; E11.9 Type 2 diabetes mellitus without complications; L89.152 Pressure ulcer of sacral region, stage 2; R41.0 Disorientation, unspecified; E87.6 Hypokalemia; D64.9 Anemia, unspecified; R40.4 Transient alteration of awareness; R53.81 Other malaise; F32.A Depression, unspecified; N40.0 Benign prostatic hyperplasia without lower urinary tract symptoms; E78.00 Pure hypercholesterolemia, unspecified; H91.13 Presbycusis, bilateral; H54.7 Unspecified visual loss; Z22.322 Carrier or suspected carrier of Methicillin resistant Staphylococcus aureus; Z95.0 Presence of cardiac pacemaker; Z97.4 Presence of external hearing-aid; Z79.84 Long term (current) use of oral hypoglycemic drugs; Z79.4 Long term (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; Z79.899 Other long term (current) drug therapy
CPT/HCPCS: 36415; 36600; 71045; 80048; 80053; 80202; 82378; 82805; 82947; 83605; 83735; 84484; 85007; 85025; 85027; 85379; 86850; 86900; 86901; 87040; 87081; 88309; 93005; 94660; 94664; 94760